=== PATIENT | female | born 1950 | race Caucasian/White ===

== ENCOUNTER 2023-04-15 22:26 | Emergency (ER) | payer SELFPAY ==
[2023-04-15] VITALS (11 sets, daily range): BP systolic 164–173; BP diastolic 87–106; PULSE 94–115; RESP 12–20; TEMP 37.1; O2SAT 88–97; BMI 24.8
--- NOTE | 2023-04-15 22:40 | ED_ITS ---
HPI - General Adult General Chief complaint: Altered Mental Status Stated complaint: ALTERED MENTAL STATUS Time Seen by Provider: 04/15/23 22:40 Source: patient Mode of arrival: ambulance Limitations: no limitations History of Present Illness HPI narrative: Patient presents to emergency department via EMS for complaint of mental status changes. Patient lives at home with . states that today she sta rted swelling herself and urinating herself and then would just sit down on the side of the bed confused and not knowing what she was doing. He denies any trauma. He states in the last year the family seems to think that she has dementia but she has not been diagnosed with it. She has a history of hypertension, and the right breast lumpectomy >10 years ago. Patient is awake Aware She Is in the Hospital Denies Any Pain. She Denies Any Fall or Trauma. Patient Denies Any Blurred Vision. She Denies Any Speech Difficulties. She Denies Any Difficulty Walking. She Denies Any Focal Weakness. She Denies Any Fever, Chills, or Cough. She Denies Any Chest Pain, Shortness of Breath. Denies Any Nausea, Vomiting, or Diarrhea. states she takes medicine for hypertension amlodipine she has some available to her by he cannot attest to her taking them every day. Related Data Home Medications Medication Instructions Recorded Confirmed amlodipine 5 mg tablet 5 mg PO BID 04/15/23 04/15/23 furosemide 20 mg tablet 20 mg PO DAILY 04/15/23 04/15/23 levothyroxine 88 mcg tablet 88 mcg PO DAILY 04/15/23 04/15/23 Allergies Allergy/AdvReac Type Severity Reaction Status Date / Time No Known Drug Allergies Allergy Verified 04/15/23 23:22 Review of Systems ROS Status of ROS 10 or more systems reviewed and unremarkable except as noted in history and below [facility] Social History Smoking status: Current every day smoker Exam Narrative Exam Narrative: Nurses notes and vital signs reviewed and patient is not hypoxic. General: Nontoxic, elderly, frail, and in no apparent distress. Skin: Warm, dry, no pallor noted. No Rash Head: Normocephalic, atraumatic. Neck: Supple, non-tender. Eye: Pupils are equal, round and EOMI. No scleral icterus. Ears, Nose, Mouth, and Throat: TM clear, no posterior oropharynx erythema or nasal mucosal hypertrophy, uvula is mid-line Oral mucosa is dry Cardiovascular: Regular Rate and Rhythm without murmur, gallop or rub. Respiratory: No accessory muscle use or respiratory distress. Lungs are clear to auscultation, no wheezing, rales or rhonchi Chest Wall: no tenderness Back: No midline thoracic or lumbar vertebral tenderness. No CVA tenderness Musculoskeletal: normal ROM, no calf or popliteal tenderness, no lower extremity edema/swelling GI: Abdomen is soft, non-distended. Normal bowel sounds. No tenderness to palpation. No rebound, guarding, or rigidity noted. Neurological: A&O x2. No cranial nerve dysfunction observed. Moves all extremities. Psychiatric: Cooperative and interactive. Constitutional Vital Signs, click to edit/add: Last Vital Signs Temp 98.8 F 04/15/23 22:30 Pulse 95 H 04/16/23 00:50 Resp 17 04/16/23 00:50 BP 158/90 H 04/16/23 00:55 Pulse Ox 96 04/16/23 00:50 O2 Del Method Room Air 04/15/23 22:30 Course Vital Signs Vital signs: Vital Signs Blood Pressure 173/106 H 04/15/23 22:29 Temperature 98.8 F 04/15/23 22:30 Pulse Rate 95 H 04/16/23 00:50 Respiratory Rate 17 04/16/23 00:50 Blood Pressure 158/90 H 04/16/23 00:55 Pulse Oximetry 96 04/16/23 00:50 Oxygen Delivery Method Room Air 04/15/23 22:30 Medical Decision Making MDM Narrative Medical decision making narrative: Patient had an IV established. Patient was given normal saline. The patient was found to have a urinary tract infection she was started on Rocephin. CT scan of the brain shows left frontal intraparenchymal hemorrhage with some mass effect but no midline shift. Patient has not had any trauma. She does not take any blood thinners. His findings were discussed with the patient's spouse for advice the patient is a full code and would like the patient to be transferred to [facility]. The patient was discussed with Dr. Grossman who has accepted the patient in transfer.The patient states blood pressure was monitored. She remained around 160/90. Medical Records Medical records reviewed: Yes I reviewed the patient's medical records Lab Data Lab results reviewed: Yes I reviewed the patient's lab results Labs: Lab Results 04/15/23 04/15/23 Range/Units 21:40 23:18 WBC 14.2 H (4.0-11.0) 10^3/uL RBC 4.14 L (4.20-5.40) 10^6/uL Hgb 12.6 (12.0-16.0) g/dL Hct 38.9 (36.0-48.0) % MCV 94.0 (81.0-99.0) fL MCH 30.4 (26.7-34.0) pg MCHC 32.4 (29.9-35.2) g/dL RDW 14.3 (11.0-15.0) % Plt Count 330 (150-450) 10^3/uL MPV 9.7 (9.5-13.5) fL Neut % (Auto) 81.8 H (43.0-75.0) % Lymph % (Auto) 5.6 L (20.5-60.0) % [place] % (Auto) 11.2 (1.7-12.0) % Eos % (Auto) 0.5 L (0.9-7.0) % Baso % (Auto) 0.3 (0.2-2.0) % Neut # (Auto) 11.6 H (1.4-6.5) 10^3/uL Lymph # (Auto) 0.8 L (1.2-3.8) 10^3/uL [place] # (Auto) 1.6 H (0.3-0.8) 10^3/uL Eos # (Auto) 0.1 (0.0-0.7) 10^3/uL Baso # (Auto) 0.0 (0.0-0.1) 10^3/uL Abs Immat Gran (auto) 0.08 H (0.00-0.03) 10^3/uL Imm/Tot Granulo (auto) 0.6 H (0.0-0.5) % PT 10.5 (9.0-11.6) sec INR 0.99 APTT 31.6 (22.3-36.2) sec Sodium 142 (136-145) mmol/L Potassium 3.9 (3.5-5.1) mmol/L Chloride 107 (98-107) mmol/L Carbon Dioxide 23.9 (21.0-32.0) mmol/L Anion Gap 15.0 BUN 25.0 H (7.0-18.0) mg/dL Creatinine 2.22 H (0.55-1.02) mg/dL Est GFR ( Amer) 26 L (>=60) Est GFR (Non-Af Amer) 22 L (>=60) BUN/Creatinine Ratio 11.3 Glucose 113 H (74-106) mg/dL Lactate 1.0 (0.4-2.0) mmol/L Calcium 8.8 (8.5-10.1) mg/dL Total Bilirubin 0.8 (0.2-1.0) mg/dL AST 28 (15-37) U/L ALT 7 L (14-59) U/L Alkaline Phosphatase 94 (46-116) U/L Troponin I High Sens 15.3 (4.0-51.3) pg/mL Total Protein 7.9 (6.4-8.2) g/dL Albumin 3.4 (3.4-5.0) g/dL Globulin 4.5 g/dL Albumin/Globulin Ratio 0.8 Urine Color Lt. yellow (YELLOW) Urine Clarity Clear (CLEAR) Urine pH 5.5 (5.0-9.0) Ur Specific [place] 1.025 (1.005-1.025) Urine Protein >=300 A (NEG/TRACE) mg/dL Urine Glucose (UA) Negative (NEGATIVE) mg/dL Urine Ketones Trace A (NEGATIVE) mg/dL Urine Occult Blood Moderate A (NEGATIVE) Urine Nitrite Positive A (NEGATIVE) Urine Bilirubin Negative (NEGATIVE) Urine Urobilinogen 0.2 (0.2-1.0) EU/dL Ur Leukocyte Esterase Trace A (NEGATIVE) Urine RBC 0-2 (0-2) #/HPF Urine WBC 10-20 A (NONE SEEN) #/HPF Ur Squamous Epith Cells Few A (NONE/RARE) #/LPF Urine Crystals None seen (None Seen) #/HPF Urine Bacteria Large A (NONE SEEN) #/HPF Urine Casts None seen (NONE SEEN) #/LPF Urine Mucus None seen (NONE SEEN) Ur Culture Indicated? Yes ECG Data Attestation: I personally reviewed and interpreted this ECG as follows: Interpretation: Sinus rhythm at 94 bpm. No acute ischemic changes. Critical Care Time Critical Care Time Critical Care Time: Yes Total Critical Care Time: 35 Attestation: Critical Care Time: 35 minutes, critical care time is separate from any procedures that are performed. The following was considered in the determination of critical care but not limited to the level medical decision-making, intensive cardiac and/or respiratory monitor, frequent vital sign monitoring, evaluation of laboratory studies, evaluation of a radiographic studies, oxygen monitoring and constant monitoring. Discharge Plan Discharge Chief Complaint: Altered Mental Status Clinical Impression: Acute UTI, Altered mental status, Acute spont intraparenchymal hemorrhage assoc w/ hypertension Patient Disposition: [facility] Time of Disposition Decision: 00:24 Discharge Location: [facility] Condition: Fair Mode of Transportation: EMS
--- NOTE | 2023-04-15 23:05 | XR_ITS ---
[address] [address] Patient Name: BHUMIKA WHEATLEY MRN: [id number] date: 1950 Sex: F Assigned Patient Location: ER Current Patient Location: ER Accession/Order Number: [id number] Exam Date: 04/15/2023 23:34 Report Date: 04/15/2023 23:46 At the request of: BOBBY ROBLERO Procedure: XR chest 1V EXAMINATION: XR chest 1V, , 04/15/2023 11:34 PM EDT INDICATION: ms faust HISTORY: Ordering Provider Reason for Exam: ms nguyen Technologist Note: Additional: COMPARISON: None. TECHNIQUE: Chest x-ray: One view. FINDINGS: No pneumothorax, pleural effusion or focal airspace consolidation. Heart is normal in size. Bony thorax is unremarkable. XR/XR chest 1V IMPRESSION: No acute cardiopulmonary process. Electronically authenticated by: ARVIN HEAD Date: 04/15/2023 23:46
--- NOTE | 2023-04-15 23:05 | CT_ITS ---
The [address] [address] Patient Name: BHUMIKA WHEATLEY MRN: [id number] date: 1950 Sex: F Assigned Patient Location: ER Current Patient Location: ER Accession/Order Number: [id number] Exam Date: 04/15/2023 23:34 Report Date: 04/16/2023 00:19 At the request of: BOBBY PADILLA Procedure: CT head/brain wo con EXAM: CT head/brain wo con HISTORY: MS changes. COMPARISON: None. TECHNIQUE: Noncontrast images of the brain obtained. FINDINGS: Paranasal sinuses and mastoid air cells are clear. Calvarium is intact. There is an intra-axial hemorrhage in the left frontal cortex measuring 3.9 x 2.6 x 3.3 cm with a minimal amount of adjacent subarachnoid blood products in the left frontal lobe. A small volume of contralateral right parafalcine subdural hemorrhage is seen measuring 4 mm on image 31. There is effacement of the frontal horn of the left lateral ventricle but no additional significant mass effect or midline shift. Brain is atrophic. There is no ventricular hemorrhage or hydrocephalus. Dense carotid calcifications. CT/CT head/brain wo con IMPRESSION: 1. Dominant acute intra-axial hemorrhage in the left frontal cortex with minimal adjacent subarachnoid blood products. No clinically significant mass effect. 2. Small contralateral right parafalcine subdural hematoma. 3. Brain atrophy. Severe atherosclerosis. Critical results were NOTIFIED by TELEPHONE BY Dr. Geo Molina MD to Dr Padilla At 04/15/2023 11:48 PM EDT. Electronically authenticated by: GEO MOLINA Date: 04/16/2023 00:19
[2023-04-15 23:11] LABS: Bilirubin Urine NEGATIVE (NEGATIVE); Blood Urine MODERATE (NEGATIVE); Clarity Urine CLEAR (CLEAR); Color Urine LT. YELLOW (YELLOW); Glucose Urine UA NEGATIVE (NEGATIVE); Ketones Urine TRACE mg/dL (NEGATIVE); Leukocyte Esterase Urine TRACE (NEGATIVE); Nitrite Urine POSITIVE (NEGATIVE); Protein Urine >=300 mg/dL (NEG/TRACE); Specific Gravity Urine 1.025 (1.005-1.025); Urobilinogen Urine 0.2 EU/dL (0.2-1.0); pH Urine 5.5 (5.0-9.0)
[2023-04-15 23:12] LABS: Urine Microscopic Indicated YES
--- NOTE | 2023-04-15 23:14 | PC.NURSE ---
pt brought in by EMS because pt has had altered mental status for the last year and family was concerned for dementia but pt hasn't been dx with anything yet. ems called tonight because pt seemed more confused and had bladder incontinence. when asking pt if she remembers what happened pt can't recall why she is at the hospital. straight cath completed by irasema corona on arrival and pt tolerated well.
[2023-04-15 23:20] LABS: Bacteria Urine LARGE #/HPF (NONE SEEN); Cast Seen? NONE SEEN #/LPF (NONE SEEN); Crystals Seen? None Seen #/HPF (None Seen); Mucus Urine NONE SEEN (NONE SEEN); RBC Urine 0-2 #/HPF (0-2); Squamous Epithelial Cell Urine FEW #/LPF (NONE/RARE); Urine Culture Indicated YES
--- NOTE | 2023-04-15 23:25 | ECG_ITS ---
[facility] Test Date: 2023-04-15 Pat Name: BHUMIKA WHEATLEY Department: Room: - Gender: Female Tonger: : 1950 Requested By: VADIM MELO Order Number: [id number] Reading MD: CASEY STERN Measurements Intervals [place] Rate: 94 P: 64 OK: 126 QRS: -55 QRSD: 78 T: 26 QT: 348 QTc: 399 Interpretive Statements 1100 Sinus rhythm 7300 Indeterminate axis 9120 atypical ECG No previous ECG available for comparison Electronically Signed On 04-16-2023 11:09:52 EDT by CASEY STERN
[2023-04-15 23:35] LABS: Basophils Percent Auto 0.3 % (0.2-2.0); Eosinophils Absolute Auto 0.1 10^3/uL (0.0-0.7); Eosinophils Percent Auto 0.5 % (0.9-7.0); Hematocrit 38.9 % (36.0-48.0); Hemoglobin 12.6 g/dL (12.0-16.0); Immature Granulocytes Abs Auto 0.08 10^3/uL (0.00-0.03); Immature Granulocytes Pct Auto 0.6 % (0.0-0.5); Lymphocytes Absolute Auto 0.8 10^3/uL (1.2-3.8); Lymphocytes Percent Auto 5.6 % (20.5-60.0); Mean Corpuscular HGB Conc 32.4 g/dL (29.9-35.2); Mean Corpuscular Hemoglobin 30.4 pg (26.7-34.0); Mean Platelet Volume 9.7 fL (9.5-13.5); Monocytes Absolute Auto 1.6 10^3/uL (0.3-0.8); Monocytes Percent Auto 11.2 % (1.7-12.0); Neutrophils Absolute Auto 11.6 10^3/uL (1.4-6.5); Neutrophils Percent Auto 81.8 % (43.0-75.0); Platelet Count 330 10^3/uL (150-450); Red Blood Count 4.14 10^6/uL (4.20-5.40); Red Cell Distribution Width 14.3 % (11.0-15.0); White Blood Count 14.2 10^3/uL (4.0-11.0)
[2023-04-15 23:51] LABS: Alanine Aminotransferase 7 U/L (14-59); Albumin Globulin Ratio 0.8; Albumin Level 3.4 g/dL (3.4-5.0); Alkaline Phosphatase 94 U/L (46-116); Aspartate Amino Transferase 28 U/L (15-37); BUN Creatinine Ratio 11.3; Bilirubin Total 0.8 mg/dL (0.2-1.0); Calcium 8.8 mg/dL (8.5-10.1); Carbon Dioxide 23.9 mmol/L (21.0-32.0); Chloride 107 mmol/L (98-107); Estimated GFR (African America 26 (>=60); Estimated GFR (Non-African Ame 22 (>=60); Globulin 4.5 g/dL; Glucose 113 mg/dL (74-106); Potassium 3.9 mmol/L (3.5-5.1); Sodium 142 mmol/L (136-145); Total Protein 7.9 g/dL (6.4-8.2)
[2023-04-15 23:56] LABS: Troponin I High Sensitivity 15.3 pg/mL (4.0-51.3)
[2023-04-16] VITALS (12 sets, daily range): BP systolic 158–169; BP diastolic 90–116; PULSE 89–106; RESP 14–22; O2SAT 94–96
[2023-04-16] MEDS: 0.9 % SODIUM CHLORIDE 1,000 ML 1000 ML IV (00:01)
[2023-04-16] MEDS: CEFTRIAXONE 1,000 MG in 0.9 % SODIUM CHLORIDE 50 ML 50 MG IV (00:01)
[2023-04-16 00:11] LABS: INR 0.99; Partial Thromboplastin Time 31.6 sec (22.3-36.2); Prothrombin Time 10.5 sec (9.0-11.6)
== END 2023-04-16 01:30 | disposition short-term general hospital (02) ==
PROVIDERS: Emergency Provider Emergency Medicine; PCP Family Medicine
DX: I61.8 Other nontraumatic intracerebral hemorrhage (principal); N39.0 Urinary tract infection, site not specified; R41.82 Altered mental status, unspecified; I10 Essential (primary) hypertension; Z79.899 Other long term (current) drug therapy; Z79.890 Hormone replacement therapy; F17.210 Nicotine dependence, cigarettes, uncomplicated
CPT/HCPCS: 36415; 70450; 71045; 80053; 81001; 83605; 84484; 85025; 85610; 85730; 87040; 87086; 87150; 87186; 93005; 96361; 96365; 99285

== ENCOUNTER 2023-05-17 12:20 | Outpatient (OUT) | payer MEDICARE, SELFPAY ==
[2023-05-17 15:32] LABS: Albumin Level 3.1 g/dL (3.4-5.0); Anion Gap 16.2; BUN Creatinine Ratio 17.2; Calcium 9.3 mg/dL (8.5-10.1); Carbon Dioxide 24.9 mmol/L (21.0-32.0); Chloride 107 mmol/L (98-107); Estimated GFR (African America 32 (>=60); Estimated GFR (Non-African Ame 27 (>=60); Glucose 83 mg/dL (74-106); Phosphorus 3.1 mg/dL (2.6-4.7); Potassium 4.1 mmol/L (3.5-5.1); Sodium 144 mmol/L (136-145)
== END 2023-05-17 12:21 | disposition home or self-care (01) ==
LOC: LAB 12:20
PROVIDERS: PCP Family Medicine; Visit Provider Internal Medicine
DX: N18.9 Chronic kidney disease, unspecified (principal)
CPT/HCPCS: 36415; 80069

== ENCOUNTER 2023-08-24 01:39 | Outpatient (REF) | payer MEDICARE, SELFPAY ==
[2023-08-24 08:38] LABS: Bilirubin Urine NEGATIVE (NEGATIVE); Blood Urine TRACE-I (NEGATIVE); Clarity Urine CLEAR (CLEAR); Color Urine LT. YELLOW (YELLOW); Glucose Urine UA NEGATIVE (NEGATIVE); Ketones Urine NEGATIVE (NEGATIVE); Leukocyte Esterase Urine NEGATIVE (NEGATIVE); Nitrite Urine NEGATIVE (NEGATIVE); Protein Urine TRACE mg/dL (NEG/TRACE); Specific Gravity Urine 1.015 (1.005-1.025)
[2023-08-24 08:49] LABS: Hemoglobin 10.8 g/dL (12.0-16.0); Mean Corpuscular HGB Conc 31.8 g/dL (29.9-35.2); Mean Corpuscular Hemoglobin 32.2 pg (26.7-34.0); Mean Corpuscular Volume 101.5 fL (81.0-99.0); Platelet Count 256 10^3/uL (150-450); Red Blood Count 3.35 10^6/uL (4.20-5.40); White Blood Count 18.3 10^3/uL (4.0-11.0)
[2023-08-24 09:01] LABS: Alanine Aminotransferase 56 U/L (14-59); Albumin Globulin Ratio 0.3; Albumin Level 1.5 g/dL (3.4-5.0); Alkaline Phosphatase 56 U/L (46-116); Anion Gap 12.1; Aspartate Amino Transferase 38 U/L (15-37); Bilirubin Total 0.3 mg/dL (0.2-1.0); Carbon Dioxide 27.2 mmol/L (21.0-32.0); Chloride 102 mmol/L (98-107); Estimated GFR (African America 43 (>=60); Estimated GFR (Non-African Ame 36 (>=60); Globulin 5.2 g/dL; Glucose 82 mg/dL (74-106); Potassium 4.3 mmol/L (3.5-5.1); Sodium 137 mmol/L (136-145); Total Protein 6.7 g/dL (6.4-8.2)
[2023-08-24 09:06] LABS: Urine Microscopic Indicated YES
[2023-08-24 09:17] LABS: Bacteria Urine NONE SEEN #/HPF (NONE SEEN); Mucus Urine TRACE (NONE SEEN); RBC Urine 0-2 #/HPF (0-2); WBC Urine NONE SEEN #/HPF (NONE SEEN)
[2023-08-24 09:18] LABS: Squamous Epithelial Cell Urine FEW #/LPF (NONE/RARE); Urine Culture Indicated NO
[2023-08-24 09:30] LABS: Segmented Neut Absolute Manual 13.35 10^3/uL (1.4-6.5)
[2023-08-24 09:31] LABS: Band Neutrophils Absolute 0.5 10^3/uL (0.0-0.3); Eosinophils Absolute Manual 0.18 10^3/uL (0.00-0.70); Lymphocytes Absolute Manual 1.09 10^3/uL (1.20-3.80); Monocytes Absolute Manual 2.56 10^3/uL (0.30-0.80)
[2023-08-24 09:32] LABS: Atypical Lymphocytes Abs Man 0.54
[2023-08-24 09:33] LABS: Anisocytosis 1+; Poikilocytosis 1+; Tear Drop Cells 1+
== END 2023-08-24 01:40 | disposition home or self-care (01) ==
LOC: LAB 01:39
PROVIDERS: PCP Family Medicine; Visit Provider Nurse Practitioner Family
DX: D72.829 Elevated white blood cell count, unspecified (principal); R41.0 Disorientation, unspecified
CPT/HCPCS: 36415; 80053; 81001; 85007; 85027

== ENCOUNTER 2023-08-26 03:30 | Outpatient (REF) | payer MEDICARE, SELFPAY ==
--- OUTSIDE RECORDS SUMMARY | 2023-08-26 03:32 | XMS_ITS | CCD ---
Author Name Unknown Address [address] [place] [id number] Organization [facility] Care Team Providers Care Residential Manager Name Role Phone Unavailable Primary Care Provider Unavailabl e Allergies Allergy Classification Reported Allergen(s) Allergy Type Date of Onset Reaction(s) Facility (1 source) [facility] Drug Allergy 05-11-2023 [facility] Medications Current Medications Medication Drug Class(es) Dates Sig (Normalized) Sig (Original) amantadine hydrochloride 100 mg oral capsule (1 source) Influenza A M2 Protein Inhibitor Start: 08-08-2023 take 1 capsule by mouth every other day amantadine (SYMMETREL) 100 mg capsule Take 1 capsule (100 mg total) by mouth every other day. 0 08/08/2023 Active amLODIPine 10 mg oral tablet (1 source) Dihydropyridine Calcium Channel Adilson Start: 04-20-2023 End: 11-08-2023 take 1 tablet by mouth in the morning amLODIPine (NORVASC) 10 mg tablet Take 1 tablet (10 mg total) by mouth in the morning. 0 04/20/2023 11/08/2023 Active carvedilol 6.25 mg oral tablet (1 source) alpha-Adrenergic Adilson, beta-Adrenergic Adilson Start: 04-20-2023 End: 11-08-2023 take 1 tablet by mouth in the morning, then take 1 tablet by mouth at mealtime carvediloL (COREG) 6.25 mg tablet Take 1 tablet (6.25 mg total) by mouth in the morning and 1 tablet (6.25 mg total) in the evening. Take with meals. 0 04/20/2023 11/08/2023 Active citalopram 10 mg oral tablet (1 source) Serotonin Reuptake Inhibitor Start: 04-21-2023 End: 11-08-2023 take 1 tablet by mouth in the morning citalopram (CeleXA) 10 mg tablet Take 1 tablet (10 mg total) by mouth in the morning. 0 04/21/2023 11/08/2023 Active donepezil hydrochloride 10 mg oral tablet (1 source) Start: 05-18-2023 donepeziL (ARICEPT) 10 mg tablet Take 1 tablet (10 mg total) by mouth. 0 05/18/2023 Active levothyroxine sodium 0.088 mg oral tablet (1 source) l-Thyroxine take 1 tablet by mouth in the morning levothyroxine (SYNTHROID, LEVOTHROID) 88 MCG tablet Take 1 tablet (88 mcg total) by mouth in the morning. 0 Active divalproex sodium 500 mg delayed release oral tablet (1 source) Mood Stabilizer, Anti-epileptic Agent Start: 08-07-2023 take 1 tablet by mouth in the morning, then take 1 tablet by mouth at bedtime divalproex (DEPAKOTE) 500 mg EC tablet Take 1 tablet (500 mg total) by mouth in the morning and 1 tablet (500 mg total) before bedtime. 0 08/07/2023 Active Problems Problem Classification Problem Date Documented Da te Episodic/Chronic Acute cerebrovascular disease (1 source) Cerebral infarction; Translations: [Cerebral infarction, unspecified] 08-11-2023 Chronic Epilepsy; convulsions (1 source) Complex partial epileptic seizure; Translations: [Localization-related (focal) (partial) symptomatic epilepsy and epileptic syndromes with complex partial seizures, not intractable, without status epilepticus] 08-11-2023 Chronic Nutritional deficiencies (1 source) Vitamin D deficiency; Translations: [Vitamin D deficiency, unspecified] 08-11-2023 Chronic Other nervous system disorders (1 source) Disorder of brain; Translations: [Encephalopathy, unspecified] 08-11-2023 Chronic Residual codes; unclassified (1 source) Restlessness and agitation; Translations: [Restlessness and agitation] 08-11-2023 Chronic Residual codes; unclassified (1 source) Confusional state; Translations: [Disorientation, unspecified] 08-11-2023 Episodic Thyroid disorders (1 source) Hypothyroidism; Translations: [Hypothyroidism, unspecified] 08-11-2023 Chronic Vital Signs Date Time Vital Sign Value Performing Clinician Kirill cain 08-11-2023 13:58-0500 Body height 160 cm Alexander Munson MD Work Phone: [facility] 08-11-2023 13:58-0500 Body mass index (BMI) [Ratio] 23.03 kg/m2 Alexander Munson MD Work Phone: [facility] 08-11-2023 13:58-0500 Body weight 58.97 kg Alexander Munson MD Work Phone: [facility] 08-11-2023 13:58-0500 Diastolic blood pressure 68 mm[Hg] Alexander Munson MD Work Phone: [facility] 08-11-2023 13:58-0500 Systolic blood pressure 106 mm[Hg] Alexander Munson MD Work Phone: [facility] Encounters Encounter Date Encounter Type Care Provider Facility Start: 08-11-2023 End: 08-11-2023 Office outpatient new 45 minutes Alexander Munson MD Work Phone: [facility] - Alexander Munson MD Comment on above: Multiple cerebral in farctions (CMS-HCC) (Primary Dx); Left frontal hemorrhage; Encephalopathy; Agitated; Hypothyroidism, unspecified type; Vitamin D deficiency; Confusion; Seizure disorder, complex partial ([facility]) Plan of Treatment Date Care Activity Detail Author Start: 08-11-2024 Adult BMI Screening Adult BMI Screen ing [facility] Start: 08-11-2024 Tobacco Screening Tobacco Screening [facility] Start: 10-06-2023 End: 10-06-2023 Patient encounter procedure 10/06/2023 1:15 PM EST Office Visit [facility] - MD [address] [place] [address] Alexander Munson MD [address] [place], [place] [id number] [facility] - Alexander Munson MD Start: 04-15-2023 Influenza vaccination Influenza Vacc ine [facility] Start: 2015 Fall Risk [facility]ening [facility] Start: 2000 Administration of varicella zoster vaccine Zoster (Shingles) Vaccine (1 of 2) [facility] Start: 1969 DTaP,Tdap and Td Vaccines (1 - Tdap) DTaP,Tdap and Td Vaccines (1 - Tdap) [facility] Start: 1962 Depression Screening [facility]ing [facility] Start: 1950 Medicare Annual Well ness Visit Medicare Annual Wellness Visit [facility] End: 08-11-2024 Bacteria identified in Urine by Culture Urine Culture Microbiology Routine Left frontal hemorrhage Multiple cerebral infarctions (CMS-HCC) Encephalopathy Agitated Hypothyroidism, unspecified type Vitamin D deficiency 1 Occurrences starting 08/11/2023 until 08/11/2024 [facility] Comment on above: 1 Occurrences starti ng 08/11/2023 until 08/11/2024 End: 08-11-2024 Comprehensive metabolic 2000 panel - Serum or Plasma Comprehensive metabolic panel Lab Routine Left frontal hemorrhage Multiple cerebral infarctions (CMS-HCC) Encephalopathy Agitated Hypothyroidism, unspecified type Vitamin D deficiency 1 Occurrences starting 08/11/2023 until 08/11/2024 [employer] Comment on above: 1 Occurrences starti ng 08/11/2023 until 08/11/2024 End: 08-11-2024 Cyanocobalamin vitamin b-12 Vitamin B12 Lab Routine Left frontal hemorrhage Multiple cerebral infarctions (CMS-HCC) Encephalopathy Agitated Hypothyroidism, unspecified type Vitamin D deficiency 1 Occurrences starting 08/11/2023 until 08/11/2024 [employer] Comment on above: 1 Occurrences starti ng 08/11/2023 until 08/11/2024 End: 08-11-2024 Folate Folate Lab Routine Left frontal hemorrhage Multiple cerebral infarctions (CMS-HCC) Encephalopathy Agitated Hypothyroidism, unspecified type Vitamin D deficiency 1 Occurrences starting 08/11/2023 until 08/11/2024 [facility] Work Phone: Comment on above: 1 Occurrences starti ng 08/11/2023 until 08/11/2024 End: 08-11-2024 Thyroid profile includes TSH FT4 Thyroid profile includes TSH FT4 Lab Routine Left frontal hemorrhage Multiple cerebral infarctions (CMS-HCC) Encephalopathy Agitated Hypothyroidism, unspecified type Vitamin D deficiency 1 Occurrences starting 08/11/2023 until 08/11/2024 [facility] Comment on above: 1 Occurrences starti ng 08/11/2023 until 08/11/2024 End: 08-11-2024 Urinalysis Urinalysis Lab Routine Left frontal hemorrhage Multiple cerebral infarctions (CMS-HCC) Encephalopathy Agitated Hypothyroidism, unspecified type Vitamin D deficiency 1 Occurrences starting 08/11/2023 until 08/11/2024 [facility] Comment on above: 1 Occurrences starti ng 08/11/2023 until 08/11/2024 End: 08-11-2024 Vitamin D 25 hydroxy Vitamin D 25 hydroxy Lab Routine Left frontal hemorrhage Multiple cerebral infarctions (CMS-HCC) Encephalopathy Agitated Hypothyroidism, unspecified type Vitamin D deficiency 1 Occurrences starting 08/11/2023 until 08/11/2024 [facility] Comment on above: 1 Occurrences starti ng 08/11/2023 until 08/11/2024 Immunizations Immunization Date Immunization Notes Care Provider Fa cili 06-30-2021 influenza virus vaccine, unspecified formulation Alexander Munson MD Work Phone: [facility] [employer] [facility] Payers Date Payer Category Payer Medicare A[employer]NA MEDICARE A ETNA MEDICARE PLAN (PPO) [id number] 2021-Present [phone] [address] [place] [address] [id number] Social History Date Type Detail Facility Start: 08-11-2023 Tobacco smoking stat us RIIS [facility] End: 03-15-2023 History of tobacco use [facility] End: 03-15-2023 History of tobacco use Cigarette Smoker [facility] Start: 08-11-2023 Tobacco use and exposure Smoke less tobacco non-user [facility] Start: 08-11-2023 Alcohol intake Lifetime non-d dian (finding) [facility] Start: 01-24-2019 End: 08-11-2023 History of Social function [facility] Start: 01-24-2019 End: 08-11-2023 Tobacco use panel [facility] Housing Instability Unknown [facility] Start: 1950 Sex Assigned At Not on file P [facility] History of Present illness Narrative 08-11-2023 Alexander Munson MD - 08/11/2023 1:45 PM EST Note Date & Type Note Facility 08-11-2023 History of Present illness Narrative Images from the original note were not included. Neurology Progress 08/11/2023 HOLLIE Hale Ref Provid Reason for Visit: Chief Complaint Patient presents with Altered Mental Status Patient is here for consult and treatment. Patent is being referred by Dony for confusion. She is accompanied by her and sister in law. Patient presents with a walker with front wheels. Patient was seen at [facility] 08/03/2023-08/07/2023. Patient went to the hospital because she passed out on her kitchen floor. She remembers waking up. Friend told her she was only out for a couple seconds. States she was a little dizzy before falling. Sister in law mentions at the hospital they discussed possible seizures. Patient has confusion. Does not know how to shower or use the restroom by herself. Patient is not forgetting people or places. She gets confusion with daily tasks. She is in speech therapy. / Bharti Quevedo MA MMSE:16/30 HPI: Cynthia Curtis is a 73 y.o. female and [id number]. This lady was recently discharged from [facility]. Progressive agitation combativeness and aggression at home. Confusion. Unable to carry out activities of daily life. Now has home care. Will be starting speech physical and occupational therapies. Multiple investigations done at [facility] are reviewed. Initial presentation was after a bout of loss of consciousness without cranial injury. Started on Depakote. EEG with slow background. 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 Handwriting has worsened. Suffered a stroke a few years ago. Resulted in left hemispheric infarction possible cranial injury at that time too. Family history unremarkable for neurological disorders. History of lupus thyroid dysfunction and breast cancer. Denies but was a heavy smoker till recently. Denies alcohol usage. 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 Multiple medications include amantadine Aricept now on Depakote. Family does not feel addition of Depakote has helped her agitation. Review of Systems: General: Unremarkable Psychological: Unremarkable Ophthalmic: Unremarkable ENT: Unremarkable Allergy and Immunolog : Unremarkable Hematological and Lymphatic : Unremarkable Endocrine : Unremarkable Respiratory : Unremarkable Cardiovascular : Unremarkable Gastrointestinal : Unremarkable Genito-Urinary : Unremarkable Musculoskeletal : Unremarkable Neurological : Unremarkable Dermatological : Unremarkable Past Medical History: Past Medical History: Diagnosis Date Cancer ([facility]) Stroke ([facility]) Social History: Social History Socioeconomic History Marital status: Spouse name: Not on file Number of children: Not on file Years of education: Not on file Highest education level: Not on file Occupational History Not on file Tobacco Use Smoking status: Former Types: Cigarettes Quit date: 03/2023 Years since quittin.4 Smokeless tobacco: Never Vaping Use Vaping Use: Never used Substance and Sexual Activity Alcohol use: Never Drug use: Never Sexual activity: Defer Other Topics Concern Not on file Social History Narrative Not on file Social Determinants of Health Financial Resource Strain: Not on file Food Insecurity: No Food Insecurity (08/11/2023) Hunger Screening Food Insecurity - Worry: Never True Food Insecurity - Inability: Never True Transportation Needs: Not on file Physical Activity: Not on file Stress: Not on file Social Connections: Not on file Interpersonal Safety: Not on file Family History: History reviewed. No pertinent family history. Modifying Factors: Allergies: Allergies Allergen Reactions Diazepam Other reaction(s): Memory loss Other Reaction(s): memory loss Other Reaction(s): memory loss Current Medications: Current Outpatient Medications Medication Sig Dispense Refill amantadine (SYMMETREL) 100 mg capsule Take 1 capsule (100 mg total) by mouth every other day. amLODIPine (NORVASC) 10 mg tablet Take 1 tablet (10 mg total) by mouth in the morning. carvediloL (COREG) 6.25 mg tablet Take 1 tablet (6.25 mg total) by mouth in the morning and 1 tablet (6.25 mg total) in the evening. Take with meals. citalopram (CeleXA) 10 mg tablet Take 1 tablet (10 mg total) by mouth in the morning. divalproex (DEPAKOTE) 500 mg EC tablet Take 1 tablet (500 mg total) by mouth in the morning and 1 tablet (500 mg total) before bedtime. donepeziL (ARICEPT) 10 mg tablet Take 1 tablet (10 mg total) by mouth. levothyroxine (SYNTHROID, LEVOTHROID) 88 MCG tablet Take 1 tablet (88 mcg total) by mouth in the morning. No current facility-administered medications for this visit. Physical Examination: Vitals: 08/11/23 1358 BP: 106/68 BP Site: Left Arm BP Postition: Sitting Weight: 59 kg (130 lb) Height: 160 cm (5' 3 ) General Examination: Cooperative middle-aged lady appears greater than stated age. GENERAL APPEARANCE: Grooming, alert, well developed, well nourished, in no acute distress, appropriate for age. CRANIUM: Normocephalic, atraumatic. ENT: Oral mucosa moist, no pharyngeal erythema or exudate, normal tympanic membrane. EYES: Conjunctiva normal, normal funduscopic exam. NECK: Neck is supple, trachea midline, no tenderness, no jugular venous distention. CHEST: Symmetrical chest wall expansion. CARDIO: Regular rate and rhythm, heart sounds normal. PERIPHERAL VASCULAR: Normal CAROTID VASCULAR: Normal BACK: Nontender, full range of motion, normal alignment. MUSCULOSKELETAL: Full range of motion, normal strength, no tenderness or swelling. SKIN: Clear EXTREMITIES: Full range Neurological Examination: CORTICAL FUNCTIONS: Speech, language, and cognition are normal as well as level of alertness and attention. No aphasia or dysarthria. CRANIAL NERVES: II - XII intact bilaterally.PERRLA, EOMI without nystagmus discs are flat. Facial sensation and strength are normal, soft palate and tongue are midline, and sternocleidomastoid strength is normal bilaterally. Hearing is normal bilaterally. Minimal flattening right nasolabial fold. MOTOR STRENGTH: Normal bulk, tone, and strength. Proximal lower extremities 4/5 right upper lower extremity 5-compared to left. SENSORY: Intact for light touch and joint and vibration sense. REFLEXES: Normal and symmetrical. Absent frontal release signs. PLANTARS: Toes are downgoing to Babinski testing. COORDINATION: Normal to [id number]. GAIT AND STATION: Got up to stand by herself, Romberg's test negative. Wide-based stance ataxic gait uses a walker. Mini Mental Score: Total Score: 16 Imaging Results: mpressions 08/05/2023 6:20 PM EST 1. No acute intracranial abnormality. 2. 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 No intracranial mass is detected. 3. Moderate cerebral atrophy. 4. Moderate to severe chronic microvascular disease. 5. Numerous foci of susceptibility artifact within both cerebral hemispheres likely represents changes related to hypertensive microangiopathy versus amyloidosis. Small cavernomas are a less likely consideration. Results - MRI BRAIN W WO CONTRAST (08/05/2023 3:09 PM EST) Narrative 08/05/2023 6:20 PM EST EXAMINATION: MRI OF THE BRAIN WITHOUT AND WITH CONTRAST, 08/05/2023 2:39 pm TECHNIQUE: Multiplanar multisequence MRI of the head/brain was performed without and with the administration of intravenous contrast. COMPARISON: 04/16/2023 HISTORY: ORDERING SYSTEM PROVIDED HISTORY: IPH / CAA ? TECHNOLOGIST PROVIDED HISTORY: IPH / CAA ? What is the sedation requirement? None Reason for Exam: IPH / CAA ? FINDINGS: INTRACRANIAL STRUCTURES/VENTRICLES: There is no acute infarct. No mass effect or midline shift. No evidence of an acute intracranial hemorrhage. The ventricles and sulci are normal in size and configuration. The sellar/suprasellar regions appear unremarkable. The normal signal voids within the major intracranial vessels appear maintained. No abnormal focus of enhancement is seen within the brain. Moderate cerebral atrophy is identified. Moderate to severe chronic microvascular disease is identified within the periventricular white matter of both cerebral hemispheres. Old left frontal lobe hematoma measures 1.9 cm previously measuring 4.5 cm. Surrounding gliosis is noted Numerous foci of susceptibility artifact within both cerebral hemispheres likely represents changes related to hypertensive microangiopathy versus amyloidosis. Small cavernomas are less likely. ORBITS: The visualized portion of the orbits demonstrate no acute abnormality. SINUSES: The visualized paranasal sinuses and mastoid air cells demonstrate no acute abnormality. BONES/SOFT TISSUES: The bone marrow signal intensity appears normal. The soft tissues demonstrate no acute abnormality. Results - MRI BRAIN W WO CONTRAST (08/05/2023 3:09 PM EST) Procedure Note Nathanael Farrar MD - 08/05/2023 EXAMINATION: MRI OF THE BRAIN WITHOUT AND WITH CONTRAST, 08/05/2023 2:39 pm TECHNIQUE: Multiplanar multisequence MRI of the head/brain was performed without and with the administration of intravenous contrast. COMPARISON: 04/16/2023 HISTORY: ORDERING SYSTEM PROVIDED HISTORY: IPH / CAA ? TECHNOLOGIST PROVIDED HISTORY: IPH / CAA ? What is the sedation requirement? None Reason for Exam: IPH / CAA ? FINDINGS: INTRACRANIAL STRUCTURES/VENTRICLES: There is no acute infarct. No mass effect or midline shift. No evidence of an acute intracranial hemorrhage. The ventricles and sulci are normal in size and configuration. The sellar/suprasellar regions appear unremarkable. The normal signal voids within the major intracranial vessels appear maintained. No abnormal focus of enhancement is seen within the brain. Moderate cerebral atrophy is identified. Moderate to severe chronic microvascular disease is identified within the periventricular white matter of both cerebral hemispheres. Old left frontal lobe hematoma measures 1.9 cm previously measuring 4.5 cm. Surrounding gliosis is noted Numerous foci of susceptibility artifact within both cerebral hemispheres likely represents changes related to hypertensive microangiopathy versus amyloidosis. Small cavernomas are less likely. ORBITS: The visualized portion of the orbits demonstrate no acute abnormality. SINUSES: The visualized paranasal sinuses and mastoid air cells demonstrate no acute abnormality. BONES/SOFT TISSUES: The bone marrow signal intensity appears normal. The soft tissues demonstrate no acute abnormality. IMPRESSION: 1. No acute intracranial abnormality. 2. 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 No intracranial mass is detected. 3. Moderate cerebral atrophy. 4. Moderate to severe chronic microvascular disease. 5. Numerous foci of susceptibility artifact within both cerebral hemispheres likely represents changes related to hypertensive microangiopathy versus amyloidosis. Small cavernomas are a less likely consideration. Results - MRI BRAIN W WO CONTRAST (08/05/2023 3:09 PM EST) Authorizing Provider Anatomical Region Laterality Modality Head -- Computed Tomography Impression No acute intracranial abnormality. Stable left frontal encephalomalacia. Narrative EXAMINATION: CT OF THE HEAD WITHOUT CONTRAST 08/03/2023 3:48 pm IMPRESSION: 1. New encephalomalacia and minimal cortical calcification in the left frontal lobe at the site of prior intraparenchymal hemorrhage. No new or residual hemorrhage identified. 2. Stable chronic white matter microvascular ischemic changes and chronic lacunar infarct in left basal ganglia. Interpreted by: Duglas Evangelista MD Signed by: Duglas Evangelista MD 07/19/23 Labs: Procedures: nterpretation This EEG was normal in wakefulness and sleep. Clinical correlation This EEG was normal. No focal or epileptiform abnormalities were seen. CRYSTAL AMAYA MD Diplomate, [place] [employer] and Neurology Diplomate, [place] [employer] of Clinical Neurophysiology Diplomate, [place] [employer] of Epilepsy Specimen Collected: -- Last Resulted: 08/04/23 14:55 Received From: [facility] Result Received: 08/11/23 13:48 Narrative Mild (<50%) stenosis in the right internal carotid artery. Mild and heterogeneous plaque (proximal and mid) in the right internal carotid artery. Mild (<50%) stenosis in the left internal carotid artery. Heterogeneous plaque (proximal and mid) in the left internal carotid artery. Normal antegrade flow involving the right vertebral artery. Normal antegrade flow involving the left vertebral artery. Assessment: 1. Left frontal hemorrhage - [facility], [place] - Folate; Future - Vitamin B12; Future - Vitamin D 25 hydroxy; Future - Comprehensive metabolic panel; Future - Thyroid profile includes TSH FT4; Future - Urinalysis; Future - Urine Culture; Future 2. Multiple cerebral infarctions (CMS-HCC) - Folate; Future - Vitamin B12; Future - Vitamin D 25 hydroxy; Future - Comprehensive metabolic panel; Future - Thyroid profile includes TSH FT4; Future - Urinalysis; Future - Urine Culture; Future 3. Encephalopathy - Folate; Future - Vitamin B12; Future - Vitamin D 25 hydroxy; Future - Comprehensive metabolic panel; Future - Thyroid profile includes TSH FT4; Future - Urinalysis; Future - Urine Culture; Future 4. Agitated - Folate; Future - Vitamin B12; Future - Vitamin D 25 hydroxy; Future - Comprehensive metabolic panel; Future - Thyroid profile includes TSH FT4; Future - Urinalysis; Future - Urine Culture; Future 5. Hypothyroidism, unspecified type - Folate; Future - Vitamin B12; Future - Vitamin D 25 hydroxy; Future - Comprehensive metabolic panel; Future - Thyroid profile includes TSH FT4; Future - Urinalysis; Future - Urine Culture; Future 6. Vitamin D deficiency - Folate; Future - Vitamin B12; Future - Vitamin D 25 hydroxy; Future - Comprehensive metabolic panel; Future - Thyroid profile includes TSH FT4; Future - Urinalysis; Future - Urine Culture; Future 7. Confusion - [facility] [place] [place] - Folate; Future - Vitamin B12; Future - Vitamin D 25 hydroxy; Future - Comprehensive metabolic panel; Future - Thyroid profile includes TSH FT4; Future - Urinalysis; Future - Urine Culture; Future 8. Seizure disorder, complex partial (CMS-HCC) Medical Decision Making: Fall could have been a seizure. On Depakote. Could help both seizures and behavioral management. Likely worsening multiple infarctions state. Behavioral disorder. Evidence of left frontal hemorrhagic infarction. Limitations discussed reviewed and explained to patient and family. Discontinue amantadine. Discontinue donepezil. Continue Depakote. Obtain laboratory studies. Counseling advised. Progressive cognitive decline expected and discussed. and [id number]-ldm express understanding. If agitation persists low-dose Seroquel will be offered. Counseling: Plan: Follow Up: 2 months Patient Instructions: ALEXANDER MUNSON MD Neurologist This note was created with the assistance of a speech-recognition program. Although the intention is to generate a document that actually reflects the content of the visit, no guarantees can be provided that every mistake has been identified and corrected by editing. documented in this encounter [employer] Evaluation note Note Date & Type Note Facility Evaluation note Diagnosis Multiple cerebral infarctions (CMS-HCC)- Primary Left frontal hemorrhage Unspecified psychosis Encephalopathy Unspecified encephalopathy Agitated Other and unspecified special symptom or syndrome, not elsewhere classified Hypothyroidism, unspecified type Vitamin D deficiency Seizure disorder, complex partial (CMS-HCC) Localization-related (focal) (partial) epilepsy and epileptic syndromes with complex partial seizures, without mention of intractable epilepsy documented in this encounter [facility] Instructions Note Date & Type Note Facility Instructions Not on filedocumented in this en counter [facility] [employer] [facility] Additional Source Comments Reason for Visit (unrecogniz ed section and content) Reason Comments Altered Mental Status Specialty Diagnoses / Procedures Referred By Shefali sierra Referred To Contact Neurology Diagnoses Confusion Marcia Napoles, HOLLIE [address], [address] [place] [address] [facility] Neurology [address] [place] [address] Referral ID Status Reason Start Date Expiration Date Visits Requested Visits Authorized [id number] Pending Review Specialty Services Required 06/17/2023 06/16/2024 1 1 FOR RECORDS PERTAINING TO PATIENTS WHO ARE OR HAVE BEEN ENROLLED IN A CHEMICAL DEPENDENCY/SUBSTANCEABUSE PROGRAM, SOME INFORMATION MAY BE OMITTED. This clinical summary was aggregated from multiple sources. Caution should be exercised in using it in the provision of clinical care. This summary normalizes information from multiple sources, and as a consequence, information in this document may materially change the coding, format and clinical context of patient data. In addition, data may be omitted in some cases. CLINICAL DECISIONS SHOULD BE BASED ON THE PRIMARY CLINICAL RECORDS. [facility]. provides no warranty or guarantee of the accuracy or completeness of information in this document.
[2023-08-26 08:40] LABS: Hematocrit 33.3 % (36.0-48.0); Hemoglobin 10.4 g/dL (12.0-16.0); Mean Corpuscular HGB Conc 31.2 g/dL (29.9-35.2); Mean Corpuscular Hemoglobin 31.8 pg (26.7-34.0); Mean Corpuscular Volume 101.8 fL (81.0-99.0); Mean Platelet Volume 9.9 fL (9.5-13.5); Platelet Count 314 10^3/uL (150-450); Red Blood Count 3.27 10^6/uL (4.20-5.40); Red Cell Distribution Width 14.1 % (11.0-15.0); White Blood Count 20.5 10^3/uL (4.0-11.0)
[2023-08-26 09:29] LABS: Segmented Neut Absolute Manual 16.81 10^3/uL (1.4-6.5)
[2023-08-26 09:30] LABS: Eosinophils Absolute Manual 0.41 10^3/uL (0.00-0.70); Lymphocytes Absolute Manual 0.82 10^3/uL (1.20-3.80); Monocytes Absolute Manual 1.43 10^3/uL (0.30-0.80)
[2023-08-26 09:35] LABS: Anion Gap 11.6; BUN Creatinine Ratio 17.4; Carbon Dioxide 29.8 mmol/L (21.0-32.0); Chloride 100 mmol/L (98-107); Estimated GFR (African America 42 (>=60); Estimated GFR (Non-African Ame 34 (>=60); Glucose 79 mg/dL (74-106); Potassium 4.4 mmol/L (3.5-5.1); Sodium 137 mmol/L (136-145)
== END 2023-08-26 03:31 | disposition home or self-care (01) ==
LOC: LAB 03:30
PROVIDERS: PCP Family Medicine; Visit Provider Nurse Practitioner Family
DX: B99.9 Unspecified infectious disease (principal); D72.829 Elevated white blood cell count, unspecified
CPT/HCPCS: 36415; 80048; 84145; 85007; 85027; 87040

== ENCOUNTER 2023-08-26 12:41 | Outpatient (OUT) | payer MEDICARE, SELFPAY ==
--- OUTSIDE RECORDS SUMMARY | 2023-08-26 12:46 | XMS_ITS | CCD ---
Author Name Unknown Address [address] [place] [id number] Organization [facility] Care Team Providers Care Mercerizing Range Controller Name Role Phone Unavailable Primary Care Provider Unavailabl e Allergies Allergy Classification Reported Allergen(s) Allergy Type Date of Onset Reaction(s) Facility (1 source) [facility] Drug Allergy 05-11-2023 [facility] Medications Current Medications Medication Drug Class(es) Dates [...] 160 cm Alexander Munson MD Work Phone: [facility] 08-11-2023 13:58-0500 Body mass index (BMI) [Ratio] 23.03 kg/m2 Alexander Munson MD Work Phone: [facility] 08-11-2023 13:58-0500 Body weight 58.97 kg Alexander Munson MD Work Phone: [facility] 08-11-2023 13:58-0500 Diastolic blood pressure 68 mm[Hg] Alexander Munson MD Work Phone: [facility] 08-11-2023 13:58-0500 Systolic blood pressure 106 mm[Hg] Alexander Munson MD Work Phone: [facility] Encounters Encounter Date Encounter Type Care Provider Facility Start: 08-11-2023 End: 08-11-2023 Office outpatient new 45 minutes Alexander Munson MD Work Phone: [facility] - Alexander Munson MD Comment on above: Multiple cerebral in farctions (CMS-HCC) (Primary Dx); Left frontal hemorrhage; Encephalopathy; Agitated; Hypothyroidism, unspecified type; Vitamin D deficiency; Confusion; Seizure disorder, complex partial ([facility]-HCC) Plan of Treatment Date Care Activity Detail Author Start: 08-11-2024 Adult BMI Screening Adult BMI Screen ing [facility] Start: 08-11-2024 Tobacco Screening Tobacco Screening [facility] Start: 10-06-2023 End: 10-06-2023 Patient encounter procedure 10/06/2023 1:15 PM EST Office Visit [facility] - MD [address] [place] [address] Alexander Munson MD [address] [place], [place] [id number] [facility] - Alexander Munson MD Start: 04-15-2023 Influenza vaccination Influenza Vacc ine [facility] Start: 2015 Fall Risk Screening [facility] Start: 2000 Administration of varicella zoster vaccine Zoster (Shingles) Vaccine (1 of 2) [facility] Start: 1969 DTaP,Tdap and Td Vaccines (1 - Tdap) DTaP,Tdap and Td Vaccines (1 - Tdap) [facility] Start: 1962 Depression Screening [facility]ing [facility] Start: 1950 Medicare Annual Well ness Visit Medicare Annual Wellness Visit [facility] End: 08-11-2024 Bacteria identified in Urine by Culture Urine Culture Microbiology Routine Left frontal hemorrhage Multiple cerebral infarctions (CMS-HCC) Encephalopathy Agitated Hypothyroidism, unspecified type Vitamin D deficiency 1 Occurrences starting 08/11/2023 until 08/11/2024 [facility] Comment on above: 1 Occurrences starti ng 08/11/2023 until 08/11/2024 End: 08-11-2024 Comprehensive metabolic 2000 panel - Serum or Plasma Comprehensive metabolic panel Lab Routine Left frontal hemorrhage Multiple cerebral infarctions (CMS-HCC) Encephalopathy Agitated Hypothyroidism, unspecified type Vitamin D deficiency 1 Occurrences starting 08/11/2023 until 08/11/2024 [employer] Comment on above: 1 Occurrences starti ng 08/11/2023 until 08/11/2024 End: 08-11-2024 Cyanocobalamin vitamin b-12 Vitamin B12 Lab Routine Left frontal hemorrhage Multiple cerebral infarctions (CMS-HCC) Encephalopathy Agitated Hypothyroidism, unspecified type Vitamin D deficiency 1 Occurrences starting 08/11/2023 until 08/11/2024 [employer] Comment on above: 1 Occurrences starti ng 08/11/2023 until 08/11/2024 End: 08-11-2024 Folate Folate Lab Routine Left frontal hemorrhage Multiple cerebral infarctions (CMS-HCC) Encephalopathy Agitated Hypothyroidism, unspecified type Vitamin D deficiency 1 Occurrences starting 08/11/2023 until 08/11/2024 [facility]: Comment on above: 1 Occurrences starti ng 08/11/2023 until 08/11/2024 End: 08-11-2024 Thyroid profile includes TSH FT4 Thyroid profile includes TSH FT4 Lab Routine Left frontal hemorrhage Multiple cerebral infarctions (CMS-HCC) Encephalopathy Agitated Hypothyroidism, unspecified type Vitamin D deficiency 1 Occurrences starting 08/11/2023 until 08/11/2024 [facility] Comment on above: 1 Occurrences starti ng 08/11/2023 until 08/11/2024 End: 08-11-2024 Urinalysis Urinalysis Lab Routine Left frontal hemorrhage Multiple cerebral infarctions (CMS-HCC) Encephalopathy Agitated Hypothyroidism, unspecified type Vitamin D deficiency 1 Occurrences starting 08/11/2023 until 08/11/2024 [facility] Comment on above: 1 Occurrences starti ng 08/11/2023 until 08/11/2024 End: 08-11-2024 Vitamin D 25 hydroxy Vitamin D 25 hydroxy Lab Routine Left frontal hemorrhage Multiple cerebral infarctions (CMS-HCC) Encephalopathy Agitated Hypothyroidism, unspecified type Vitamin D deficiency 1 Occurrences starting 08/11/2023 until 08/11/2024 [facility] Comment on above: 1 Occurrences starti ng 08/11/2023 until 08/11/2024 Immunizations Immunization Date Immunization Notes Care Provider Fa cili 06-30-2021 influenza virus vaccine, unspecified formulation Alexander Munson MD Work Phone: [facility] [employer] [facility] Payers Date Payer Category Payer Medicare A[employer] MEDICARE A ETNA MEDICARE PLAN (PPO) [id number] 2021-Present [phone] [address] [place] [address] [id number] Social History Date Type Detail Facility Start: 08-11-2023 Tobacco smoking stat us NEIS [facility] End: 03-15-2023 History of tobacco use [facility]oker [facility] End: 03-15-2023 History of tobacco use Cigarette Smoker [facility] Start: 08-11-2023 Tobacco use and exposure Smoke less tobacco non-user [facility] Start: 08-11-2023 Alcohol intake Lifetime non-d dian (finding) [facility] Start: 01-24-2019 End: 08-11-2023 History of Social function [facility] Start: 01-24-2019 End: 08-11-2023 Tobacco use panel [facility] Housing Instability Unknown [facility] Start: 1950 Sex Assigned At Not on file P [facility] History of Present illness Narrative 08-11-2023 [...] with front wheels. Patient was seen at [facility] 08/03/2023-08/07/2023. Patient went to the hospital because [...] Curtis is a 73 y.o. female and [id number]. This lady was recently discharged from [facility]. Progressive agitation combativeness and aggression at home. Confusion. Unable to carry out activities of daily life. Now has home care. Will be starting speech physical and occupational therapies. Multiple investigations done at [facility] are reviewed. Initial presentation was after [...] History: Past Medical History: Diagnosis Date Cancer ([facility]) Stroke ([facility]) Social History: Social History Socioeconomic History Marital [...] downgoing to Babinski testing. COORDINATION: Normal to [id number]-vl-plem. GAIT AND STATION: Got up to stand [...] abnormalities were seen. CRYSTAL AMAYA MD Diplomate, [place] [employer]iatry and Neurology Diplomate, [place] Board of Clinical Neurophysiology Diplomate, [place] Board of Epilepsy Specimen Collected: -- Last Resulted: 08/04/23 14:55 Received From: [facility] Result Received: 08/11/23 13:48 Narrative Mild [...] artery. Assessment: 1. Left frontal hemorrhage - [facility], [place] - Folate; Future - Vitamin [...] - Urine Culture; Future 7. Confusion - [facility] - [...] Progressive cognitive decline expected and discussed. and [id number] express understanding. If agitation persists low-dose Seroquel [...] corrected by editing. documented in this encounter [employer] Evaluation note Note Date & Type [...] Not on filedocumented in this en counter [facility] [employer] [facility] Additional Source Comments Reason for Visit (unrecogniz ed section and content) Reason Comments Altered Mental Status Specialty Diagnoses / Procedures Referred By Shefali sierra Referred To Contact Neurology Diagnoses Confusion Marcia Napoles, HOLLIE [address], [address] [place] [address] [facility] Neurology [address] [place] [address] Referral ID Status Reason Start Date Expiration Date Visits Requested Visits Authorized [id number] Pending Review Specialty Services Required 06/17/2023 06/16/2024 [...] BE BASED ON THE PRIMARY CLINICAL RECORDS. [facility] [employer] [facility]. provides no warranty or guarantee of the accuracy or completeness of information in this document.
[2023-08-30 15:12] LABS: Procalcitonin 0.25 ng/mL (0.00-0.08)
== END 2023-08-26 12:42 | disposition home or self-care (01) ==
LOC: LAB 12:43
PROVIDERS: PCP Family Medicine; Visit Provider Family Medicine
DX: D72.829 Elevated white blood cell count, unspecified (principal)
CPT/HCPCS: 36415; 84145; 87040

== ENCOUNTER 2023-08-29 05:49 | Outpatient (REF) | payer MEDICARE, SELFPAY ==
--- OUTSIDE RECORDS SUMMARY | 2023-08-29 05:53 | XMS_ITS | CCD ---
Author Name Unknown Address [id number] [place] [address] Organization [facility] Care Team Providers Care Nitroglycerin Distributor Name Role Phone MAYI ADAMS Attending Unavailable MAYI ADAMS Referring Unavailable Arnaldo, Ania Unavailable HEMEYER ., DR FIERRO Admitting Unavailable HEMEYER ., DR FIERRO Attending Unavailable HEMEYER ., DR FIERRO Consulting Unavailable HEMEYER ., DR FEIRRO Primary Care Unavailable ARNALDO, ANIA Consulting Unavailable ARNALDO, ANIA Admitting Unavailable HEMEYER ., DR FIERRO Primary Care Unavailable ARNALDO, ANIA Attending Unavailable HEMEYER ., DR FIERRO Primary Care Unavailable HEMEYER ., DR FIERRO Admitting Unavailable HEMEYER ., DR FIERRO Attending Unavailable HEMEYER ., DR FIERRO Consulting Unavailable ARNALDO, ANIA Attending Unavailable HEMEYER ., DR FIERRO Primary Care Unavailable ARNALDO, ANIA Admitting Unavailable ARNALDO, ANIA Consulting Unavailable ARNALDO, ANIA Attending Unavailable ARNALDO, ANIA Consulting Unavailable ARNALDO, ANIA Admitting Unavailable HEMEYER ., DR FIERRO Primary Care Unavailable ARNALDO, ANIA Consulting Unavailable ARNALDO, ANIA Admitting Unavailable HEMEYER ., DR FIERRO Primary Care Unavailable ARNALDO, ANIA Attending Unavailable Hemeyer Espinoza BARROS Primary Care Provider AUNDREA MIXON Referring Unavailable ESPINOZA MELO Primary Care Unavailable ESPINOZA MELO Primary Care Unavailable DARON CHRISTIANSON Referring Unavailable ESPINOZA MEOL Primary Care Unavailable HARRIET GOODMAN Referring Unavailable HARRIET GOODMAN Attending Unavailable ESPINOZA MELO Primary Care Unavailable HARRIET GOODMAN Attending Unavailable GOODMAN, HARRIET L Referring [facility] Referring Unavailable [facility] Primary Care Unavailable [facility] Primary Care Unavailable DIMITRISFARZANA TONG Referring Unavailable HARRIET GOODMAN Attending Unavailable [facility] Primary Care Unavailable GOODMAN, HARRIET L Referring Unavailable GOODMANKORINY L Attending Unavailable [facility] Primary Care Unavailable GOODMAN HARRIET L Referring Unavailable GOODMAN HARRIET L Referring Unavailable GOODMANHARRIET L Attending Unavailable [facility] Primary Care Unavailable [facility] Primary Care Unavailable BOBBY ROBLERO Referring Unavailable TREMAINE MAE Attending Unavailable TREMAINE MAE Admitting Unavailable CHANNING THOMPSON Consulting Unavailable ROB PORTILLO Consulting Unavailable ANALILIA DIANA Consulting Unavailable LOPEZ WALKER Consulting Unavailable HARRIET GOODMAN Consulting Unavailable [facility] Primary Care Unavailable BART STOCK Attending Unavailable BART STOCK Consulting Unavailable BART STOCK Admitting Unavailable DEE CARRANZA Consulting Unavailable GOODMAN, HARRIET L Referring Unavailable GOODMANKORINY Ric Attending Unavailable HEMEYER, EDWARD J Primary Care Unavailable GOODMAN, HARRIET L Referring Unavailable GOODMANKORINY L Attending Unavailable [facility] Primary Care Unavailable GOODMAN, HARRIET L Referring Unavailable GOODMANJANESHARRIET L Attending Unavailable [facility] Primary Care Unavailable KORIN GOODMANY L Attending Unavailable [facility] Primary Care Unavailable GOODMAN, HARRIET L Referring Unavailable [facility] Primary Care Unavailable GOODMAN, HARRIET L Attending Unavailable GOODMAN, HARRIET L Referring Unavailable [facility] Primary Care Unavailable GOODMAN, HARRIET L Attending Unavailable GOODMAN, HARRIET L Referring Unavailable YESSY PACKER Referring Unavailable TRENA MCCLELLAN Attending Unavailable KAMERON, EDWARD J Primary Care Unavailable JANIE ARCHULETA Admitting Unavailable CORINA DISLA Referring Unavailable [facility] Consulting Unavailable YESSY PACKER Consulting Unavailable CORINA DISLA Consulting Unavailable [facility] Consulting U navailable TRENA MCCLELLAN Attending Unavailable TRENA MCCLELLAN Referring Unavailable ESPINOZA MELO Primary Care Unavailable TRENA MCCLELLAN Attending Unavailable TRENA MCCLELLAN Referring Unavailable ESPINOZA MELO Primary Care Unavailable SHANTI GORMAN Attending Unavailable SHANTI GORMAN Referring Unavailable ESPINOZA MELO Primary Care Unavailable DORCAS MITCHELL Referring Unavailable ESPINOZA MELO Primary Care Unavailable Allergies Allergy Classification Reported Allergen(s) Allergy Type Date of Onset Reaction(s) Facility (9 sources) Contrast media Propensity to adverse reactions Unknown [facility] Other (9 sources) Penicillin Drug Allergy Unknown [facility] Other (1 source) HYDROcodone Drug Allergy [address] [facility] Repository (1 source) predniSONE Drug Allergy [address] [facility] Rep[facility] (1 source) traMADol Drug Allergy [address] [facility] Repository (1 source) Tylenol-Codeine #3 Drug allergy (disorder) [address] [facility] Repository (4 sources) diazePAM; Translations: [DIAZEPAM] Drug Allergy 3 [employer] (1 source) Gadolinium Derivatives Propensity to adverse reactions to drug 3 Rash [facility] ([facility] source) Iodinated Contrast Media Propensity to adverse reactions to drug 3 Rash [facility] Medications Current Medications Medication Drug Class(es) Dates Sig (Normalized) Sig (Original) Acetaminophen (10 sources) Start: 08-03-2023 acetaminophen (TYLENOL) tablet 650 mg take 2 capsules by m outh every six hours Acetaminophen 500 MG 2 capsule as needed Orally every 6 hrs Not-Taking take 2 capsules by m outh every six hours as needed Acetaminophen 500 MG 2 capsule as needed Orally every 6 hrs Active amantadine hydrochloride 100 mg oral capsule (6 sources) Influenza A M2 Protein Inhibitor Start: 08-08-2023 take 1 capsule by mouth every other day amantadine (SYMMETREL) 100 MG capsule Take 1 capsule by mouth every other day 60 capsule 3 08/08/2023 Active Start: 08-06-2023 amantadine (SY MMETREL) capsule 100 mg Start: 07-04-2023 End: 08-07-2023 take 100 mg by mouth twice daily 100 mg, Oral, 2 TIMES DAILY, First dose on Ruby 08/04/23 at 0900, Until Discontinued ascorbic acid 500 mg chewable tablet (1 source) Vitamin C take 1 tablet by mouth every twenty-four hours Vitamin C 500 MG 1 tablet Orally Once a day Active azaTHIOprine 50 mg oral tablet (8 sources) Purine Antimetabolite take 2 tablets by mouth once daily azaTHIOprine 50 MG 2 Tablet Orally Daily for 30 day(s) Active cholecalciferol 0.05 mg oral tablet (6 sources) Vitamin D take 1 tablet by mouth every twenty-four hours Vitamin D 50 MCG (2000 UT) 1 tablet Orally Once a day Active ondansetron (ZOFRAN-ODT) disintegrating tablet 4 mg (1 source) Start: 2022 ondansetron (ZOFRAN-ODT) disintegrating tablet 4 mg 1000 ml sodium chloride 9 mg/ml injection (3 sources) Start: 2022 IntraVENous, at 5-250 mL/hr, PRN, if patient receiving piggyback infusions and maintenance fluids are not ordered OR KVO fluids to protect IV site / prevent frequent line interruptions/ long duration, Starting on Tue08/03/23 at 2319 For piggyback infusion, administer at same rate as piggyback for a total of 25 mL. Enter 25 mL into dose field and piggyback rate into rate field of order. If piggyback is infusing at a rate less than 100 mL/hr, enter 25 mL into dose field and 100 mL/hr into rate field of order. For KVO fluids, enter rate of 20 mL/hr or less into rate field of order. Start: 08-03-2023 take 1 dose intraven ously twice daily 5-40 mL, IntraVENous, EVERY 12 HOURS SCHEDULED (2 times per day), First dose on Tue08/03/23 at 2345, Until Discontinued For Line Patency: Peripheral IV = 5 mL; Midline or Central Line = 10 mL/lumen. If following IV push medication, administer flush at same rate as the IV push. Flush volume is determined by type of infusion therapy being given. For non-viscous solutions use: Peripheral IV = 5 mL Midline or Central Line = 10 mL/lumen For viscous solutions (i.e. blood components, parenteral nutrition, contrast media, or after obtaining blood sample) use: Peripheral IV = 10 mL Midline or Central Line = 20 mL/lumen Start: 08-03-2023 take 5-40 mL intrave nously once as needed 5-40 mL, IntraVENous, PRN, Starting on Tue08/03/23 at 2319, Until Discontinued, Line Care, After every IV line use For Line Patency: Peripheral IV = 5 mL; Midline or Central Line = 10 mL/lumen. If following IV push medication, administer flush at same rate as the IV push. Flush volume is determined by type of infusion therapy being given. For non-viscous solutions use: Peripheral IV = 5 mL Midline or Central Line = 10 mL/lumen For viscous solutions (i.e. blood components, parenteral nutrition, contrast media, or after obtaining blood sample) use: Peripheral IV = 10 mL Midline or Central Line = 20 mL/lumen divalproex sodium 500 mg delayed release oral tablet (6 sources) Mood Stabilizer, Anti-epileptic Agent Start: 08-04-2023 take 1 tablet by mouth twice daily divalproex (DEPAKOTE) [address] tablet Take 1 tablet by mouth 2 times daily 90 tablet 3 08/07/2023 Active Start: 05-10-2023 End: 09-22-2023 take 250 mg by mouth twice daily 250 mg, Oral, 2 TIMES DAILY, First dose on Ruby 08/04/23 at 0900, Until Discontinued Do not crush or break. Vitamin C 500 MG (3 sources) take 1 tablet by diego th once daily Vitamin C 500 MG 1 tablet Orally Once a day Active Completed/Discontinued Medications Medication Drug Class(es) Dates Sig (Normalized) Sig (Original) amLODIPine 5 mg oral tablet (20 sources) Dihydropyridine Calcium Channel Adilson Start: 06-08-2023 End: 08-07-2023 take 2 tablets by mouth once daily amLODIPine (NORVASC) 5 MG tablet Take 2 tablets by mouth daily 0 06/08/2023 08/07/2023 Discontinued (Stop Taking at Discharge) Start: 04-20-2023 take 10 mg by mouth once daily 10 mg, Oral, DAILY, First dose on [facility] 08/04/23 at 0900, Until Discontinued take 2 tablets by [facility] every twenty-four hours amLODIPine Besylate 5 MG 2 tablet Orally Daily for 90 day(s) Active take 1 tablet by [facility] every twenty-four hours amLODIPine Besylate 5 MG 1 tablet Orally Daily for 90 day(s) Active carvedilol 6.25 mg oral tablet (8 sources) alpha-Adrenergic Adilson, beta-Adrenergic Adilson Start: 04-20-2023 take 6.25 mg by mouth twice daily at mealtime 6.25 mg, Oral, 2 TIMES DAILY WITH MEALS, First dose on [facility] 08/04/23 at 0800, Until Discontinued Administer with food to minimize the risk of orthostatic hypotension citalopram 10 mg oral tablet (8 sources) Serotonin Reuptake Inhibitor Start: 04-21-2023 take 10 mg by mouth once daily 10 mg, Oral, DAILY, First dose on [facility] 08/04/23 at 0900, Until Discontinued donepezil hydrochloride 10 mg oral tablet (9 sources) Start: 05-18-2023 take 10 mg by mouth once daily 10 mg, Oral, NIGHTLY, First dose on [facility] 08/04/23 at 2100, Until Discontinued Start: 05-18-2023 take 1 tablet by diego once daily donepezil (ARICEPT) 10 MG tablet Take 1 tablet by mouth nightly 30 tablet 3 05/18/2023 Active Start: 04-20-2023 End: 05-17-2023 take 1 tablet by mouth once daily donepezil (ARICEPT) 5 MG tablet Take 1 tablet by mouth nightly for 27 days 27 tablet 0 04/20/2023 05/17/2023 Active 0.3 ml enoxaparin sodium 100 mg/ml prefilled syringe (1 source) Low Molecular Weight Heparin Start: 08-04-2023 inject 30 mg by subcutaneous injection once daily 30 mg, SubCUTAneous, DAILY, First dose on [facility] 08/04/23 at 0900, Until Discontinued Indication of Use: Prophylaxis-DVT/PE Administer by deep subCUTAneous injection with pt lying down. Alternate injection sites on abdominal wall. Do not rub site after injection. Check with provider prior to any invasive procedure. Renal dose adjustment per P&T Guidelines ferrous sulfate 325 mg oral tablet (4 sources) End: 08-07-2023 take 1 tablet by mouth every other day ferrous sulfate (IRON 325) 325 (65 Fe) MG tablet Take 1 tablet by mouth every other day 0 08/07/2023 Discontinued (Stop Taking at Discharge) take 1 tablet by diego th once daily at breakfast ferrous sulfate (IRON 325) 325 (65 Fe) M G tablet Take 1 tablet by mouth daily (with breakfast) 0 Active furosemide 20 mg oral tablet (17 sources) Loop Diuretic End: 08-07-2023 take 1 tablet by mouth once daily furosemide (LASIX) 20 MG tablet Take 1 tablet by mouth daily 0 08/07/2023 Discontinued (Stop Taking at Discharge) gadoteridol (PROHANCE) injection 12 mL (1 source) Start: 08-05-2023 End: 08-05-2023 gadoteridol (PROHANCE) injection 12 mL hydrOXYzine hydrochloride 10 mg oral tablet (1 source) Antihistamine Start: 08-03-2023 End: 08-03-2023 hydrOXYzine HCl (ATARAX) tablet 10 mg levETIRAcetam 500 mg oral tablet (5 sources) Start: 08-03-2023 End: 08-04-2023 levETIRAcetam (KEPPRA) tablet 500 mg Start: 04-20-2023 take 1 tablet by diego th twice daily levETIRAcetam (KEPPRA) 500 MG tablet Take 1 tablet by mouth 2 times daily 60 tablet 3 04/20/2023 Active take 1 tablet by diego th every twelve hours levETIRAcetam 500 MG 1 tablet Orally every 12 hrs Active levothyroxine sodium 0.088 mg oral tablet (14 sources) l-Thyroxine Start: 08-04-2023 take 88 ug by mouth once daily 88 mcg, Oral, DAILY, First dose on [place] 08/04/23 at 0700, Until Discontinued Tube feeding (TF) interaction, obtain physician order to manage, recommend holding TF for 30 minutes before and after dose. take 1 tablet by diego th every twenty-four hours Levothyroxine Sodium 88 MCG 1 capsule Orally Once a day Active 1 ml LORazepam 2 mg/ml injection (2 sources) Benzodiazepine Start: 08-03-2023 4 mg, IntraVEN ous, EVERY 5 MIN PRN, Starting on Tue08/03/23 at 2319, Until Discontinued, Seizures May repeat dose (4 mg) X 1 for seizures lasting more than 5 minutes. Notify provider if administered for seizure. Start: 08-03-2023 End: 08-03-2023 LORazepam (ATIVAN) tablet 0. 5 mg Multi Vitamin Daily - (9 sources) take 1 tablet by diego th once daily Multi Vitamin Daily - 1 tablet Orally Once a day Not-Taking take 1 tablet by mouth once wong y Multi Vitamin Daily - 1 tablet Orally Once a day Active polyethylene glycol 3350 75297 mg powder for oral solution (1 source) Osmotic Laxative Start: 08-03-2023 17 g, Oral, D AILY PRN, Starting on Tue08/03/23 at 2319, Until Discontinued, Constipation First line therapy for constipation PROCRIT INJECTION - 1000 units (20 sources) Start: 08-23-2019 PROCRIT INJECT ION - 1000 units Aug, 1000 U Start: 07-11-2019 PROCRIT INJECT ION - 1000 units Jun, 1000 U Start: 06-13-2019 PROCRIT INJECT ION - 1000 units May, 1000 U Start: 05-16-2019 PROCRIT INJECT ION - 1000 units May, 1000 U Start: 04-19-2019 PROCRIT INJECT ION - 1000 units Apr, 1000 U Start: 03-19-2019 PROCRIT INJECT ION - 1000 units Mar, 1000 U technetium 99m DTPA solution 45 millicurie (1 source) Start: 08-04-2023 End: 08-04-2023 technetium 99m DTPA solution 45 millicurie technetium albumin aggregated (MAA) solution 6.1 millicurie (1 source) Start: 08-04-2023 End: 08-04-2023 technetium albumin aggregated (MAA) solution 6.1 millicurie triamcinolone acetonide 0.001 mg/mg topical ointment (3 sources) Corticosteroid Start: 05-03-2023 End: 08-07-2023 triamcinolone (KENALOG) 0.1 % ointment APPLY TO AFFECTED AREA EVERY DAY AT BEDTIME 0 05/03/2023 08/07/2023 Discontinued (Stop Taking at Discharge) Problems Active Problems Problem Classification Problem Date Documented Date Episodic/Chronic Acute cerebrovascular disease (18 sources) Cerebral hemorrhage; Translations: [Nontraumatic intracerebral hemorrhage, unspecified] Onset: 3 04-17-2023 Chronic Chronic kidney disease (20 sources) Chronic kidney disease stage 3; Translations: [Chronic kidney disease, stage 3 (moderate)] Onset: 1 Resolved: 2 Chronic Complications of surgical procedures or medical care (4 sources) Postprocedural hypothyroidism; Translations: [POSTPROCEDURAL HYPOTHYROIDISM] Onset: 3 Chronic Deficiency and other anemia (9 sources) Anemia of renal disease; Translations: [Anemia in chronic kidney disease] Chronic Deficiency and other anemia (7 sources) Anemia in chronic kidney disease; Translations: [ANEMIA IN CHRONIC KIDNEY DISEASE] Onset: 1 Resolved: 2 Chronic E Codes: Fall (1 source) Fall Onset: 3 Epilepsy; convulsions (3 sources) Seizure; Translations: [Unspecified convulsions] Onset: 3 08-05-2023 Episodic Essential hypertension (13 sources) Hypertensive disorder; Translations: [Essential (primary) hypertension] Onset: 3 04-17-2023 Chronic Genitourinary symptoms and ill-defined conditions (11 sources) Other microscopic hematuria; Translations: [Bacteriuria] Onset: 1 Resolved: 2 Episodic Hypertension with complications and secondary hypertension (17 sources) Malignant hypertensive chronic kidney disease; Translations: [Hypertensive chronic kidney disease with stage 1 through stage 4 chronic kidney disease, or unspecified chronic kidney disease] Onset: 1 Resolved: 2 Chronic Malaise and fatigue (1 source) Chronic fatigue, unspecified; Translations: [CHRONIC FATIGUE UNSPECIFIED] Onset: 3 Chronic Malaise and fatigue (1 source) Weakness; Translations: [Weakness] Onset: 3 Episodic Nutritional deficiencies (1 source) Vitamin D deficiency, unspecified; Translations: [Vitamin D deficiency, unspecified] Onset: 3 Chronic Other and ill-defined cerebrovascular disease (4 sources) Cerebral amyloid angiopathy; Translations: [Cerebral amyloid angiopathy] Onset: 3 04-17-2023 Chronic Other circulatory disease (9 sources) Arteritis; Translations: [Arteritis, unspecified] Chronic Other circulatory disease (7 sources) Arteritis, unspecified; Translations: [ARTERITIS UNSPECIFIED] Onset: 1 Resolved: 2 Chronic Other diseases of kidney and ureters (9 sources) Secondary hyperparathyroidism; Translations: [Secondary hyperparathyroidism of renal origin] Chronic Other diseases of kidney and ureters (7 sources) Secondary hyperparathyroidism of renal origin; Translations: [SEC HYPERPARATHYROIDISM RENAL ORIGN] Onset: 1 Resolved: 2 Chronic Other hereditary and degenerative nervous system conditions (1 source) Mild cognitive impairment, so stated; Translations: [Mild cognitive impairment of uncertain or unknown etiology] Onset: 3 Chronic Other nervous system disorders (1 source) Encephalopathy, unspecified; Translations: [Encephalopathy, unspecified] Onset: 3 Chronic Other nervous system disorders (1 source) Other speech disturbances; Translations: [Other speech disturbances] Onset: 3 Episodic Residual codes; unclassified (2 sources) Restlessness and agitation; Translations: [Restlessness and agitation] Onset: 3 Chronic Residual codes; unclassified (2 sources) Disorientation, unspecified; Translations: [Disorientation, unspecified] Onset: 3 Episodic Syncope (7 sources) Syncope and collapse; Translations: [Syncope and collapse] Onset: 3 08-03-2023 Episodic Systemic lupus erythematosus and connective tissue disorders (20 sources) SLE glomerulonephritis syndrome; Translations: [Glomerular disease in systemic lupus erythematosus] Onset: 1 Resolved: 2 Chronic Thyroid disorders (1 source) Hypothyroidism, unspecified; Translations: [Hypothyroidism, unspecified] Onset: 3 Chronic Past or Other Problems Problem Classification Problem Date Documented Date Episodic/Chronic Acute and unspecified renal failure (6 sources) Acute injury of kidney; Translations: [Acute kidney failure, unspecified] Onset: 3 04-27-2023 Episodic Cancer of thyroid (1 source) Personal history of malignant neoplasm of thyroid; Translations: [PERSONAL HX MALIG NEOPLASM THYROID] Onset: 3 Episodic Mood disorders (4 sources) Disturbance in mood; Translations: [Emotional lability] Onset: 3 04-18-2023 Episodic Other screening for suspected conditions (not mental disorders or infectious disease) (5 sources) Encounter for screening for lipoid disorders; Translations: [Abnormal electroencephalogram [EEG]] Onset: 2 Episodic Residual codes; unclassified (4 sources) Memory impairment; Translations: [Other amnesia] Onset: 3 04-18-2023 Episodic Residual codes; unclassified (1 source) Other amnesia; Translations: [Other amnesia] Onset: 3 Episodic Urinary tract infections (4 sources) Urinary tract infectious disease; Translations: [Urinary tract infection, site not specified] Onset: 3 Resolved: 3 04-17-2023 Episodic Results Test Name Value Interpretation Reference Range Facility CBC AND AUTO DIFFon 08-23-19 24 Eosinophils (Bld) [#/Vol] 0.2 10*3/uL Normal 0.0-0.4 [facility] Comment on above: Performed By: #### C BARTOLO, 37075-1, CBCA, #### [facility] ([id number]) [address] [place] [place] [address] Eosinophils/100 WBC (Bld) 1.0 % Normal [facility] Comment on above: Performed By: #### C BARTOLO, 23316-6, CBCA, #### [facility] ([id number]) [address] [place] [address] Erythrocyte distribution width (RBC) [Ratio] 14.4 % Normal 11.5-15.0 [facility] Comment on above: Performed By: #### C BARTOLO, 19012-8, CBCA, #### [facility] ([id number]) [address] [place] [address] Hematocrit (Bld) [Volume fraction] 30.7 % Low 35-47 [facility] Comment on above: Performed By: #### C BARTOLO, 36547-3, CBCA, #### [facility] ([id number]) [address] [place] [address] Hemoglobin (Bld) [Mass/Vol] 10.0 g/dL Low 11.7-15.5 [facility] Comment on above: Performed By: #### C BARTOLO, 64076-9, CBCA, #### [facility] ([id number]) [address] [place] [address] Lymphocytes (Bld) [#/Vol] 0.9 10*3/uL Low 1.0-3.5 [facility] Comment on above: Performed By: #### C BARTOLO, 81226-5, CBCA, #### [facility] ([id number]) [address] [place] [address] Lymphocytes/100 WBC (Bld) 5.8 % Normal [facility] Comment on above: Performed By: #### Ever MCFARLAND, 37914-8, CBCA, #### [facility] ([id number]) [address] [place] [address] MCH (RBC) [Entitic mass] 31.6 pg Normal 27-34 [facility] Comment on above: Performed By: #### C BARTOLO, 80905-2, CBCA, #### [facility] ([id number]) [address] [place] [address] MCHC (RBC) [Mass/Vol] 32.6 g/dL Normal 32-36 [facility] Comment on above: Performed By: #### C BARTOLO, 91324-6, CBCA, 97339-6 #### [facility] ([id number]) [address] [place] [address] MCV (RBC) [Entitic vol] 97 fL Normal 80-100 [facility] Comment on above: Performed By: #### C BARTOLO, 57089-8, CBCA, #### [facility] ([id number]) [address] [place] [address] Monocytes (Bld) [#/Vol] 3.3 10*3/uL High 0-0.9 [facility] Comment on above: Performed By: #### C MP, 65060-3, CBCA, #### [facility] ([id number]) [address] [place] [address] Monocytes/100 WBC (Bld) 21.2 % Normal [facility] Comment on above: Performed By: #### [place], 30586-3, CBCA, #### [facility] ([id number]) [address] [address] MYELOCYTE 2.9 % Normal [facility] Comment on above: Performed By: #### C MP, , CBCA, #### [facility] ([id number]) [address] [place] [address] Neutrophils (Bld) [#/Vol] 10.8 10*3/uL High 1.5-6.6 [facility] Comment on above: Performed By: #### C BARTOLO, 58740-0, CBCA, #### [facility] ([id number]) [address] [place] [address] Platelet mean volume (Bld) [Entitic vol] 7.8 fL Normal 7-12 [facility] Comment on above: Performed By: #### [place], 05139-5, CBCA, #### [facility] ([id number]) [address] [place] [address] Platelets (Bld) [#/Vol] 201 10*3/uL Normal 150-450 [facility] Comment on above: Performed By: #### [place], 72590-1, CBCA, #### [facility] ([id number]) [address] [place] [address] POLYCHROMASIA 1+ Abnormal NONE [facility] Comment on above: Performed By: #### [place], 37735-2, CBCA, #### [facility] ([id number]) [address] [place] [address] RBC COUNT 3.17 X10E12/L Low 3.80-5.20 [facility] Comment on above: Performed By: #### [place], 20517-2, CBCA, 56836-5 #### [facility] ([id number]) [address] [place] [address] SEG NEUTROPHIL 69.1 % Normal [facility] Comment on above: Performed By: #### C MP, 33585-3, CBCA, #### [facility] ([id number]) [address] [place] [address] WBC (Bld) [#/Vol] 15.6 10*3/uL High 4.0-11.0 [facility] Comment on above: Performed By: #### C BARTOLO, 55661-4, CBCJaylen, #### [facility] ([id number]) [address] [place] [address] COMPREHENSIVE METABOLIC PANE Keenan 08-23-2023 Albumin [Mass/Vol] 1.9 g/dL Low 3.2-5.3 [facility] Comment on above: Performed By: #### C MP, 79938-4, CBCA, #### [facility] ([id number]) [address] [place] [address] ALP [Catalytic activity/Vol] 41 U/L Normal 39-130 [facility] Comment on above: Performed By: #### C MP, 85454-3, CBCA, 75708-8 #### [facility] ([id number]) [address] [place] [address] ALT [Catalytic activity/Vol] 30 U/L Normal 0-31 [facility] Comment on above: Performed By: #### C MP, 01102-0, CBCA, 56091-8 #### [facility] ([id number]) [address] [place] [address] Anion gap [Moles/Vol] 6 mmol/L Normal 5-15 [facility] Comment on above: Performed By: #### C BARTOLO, 11093-9, CBCA, #### [facility] ([id number]) [address] [place] [address] AST [Catalytic activity/Vol] 44 U/L High 0-41 [facility] Comment on above: Performed By: #### C BARTOLO, 80916-6, CBCA, #### [facility] ([id number]) [address] [facility] [place] [address] Bilirubin [Mass/Vol] 0.6 mg/dL Normal 0.3-1.2 [facility] Comment on above: Performed By: #### C BARTOLO, 20827-3, CBCA, #### [facility] ([id number]) [address] [facility] [place] [address] Calcium [Mass/Vol] 8.0 mg/dL Low 8.5-10.5 [facility] Comment on above: Performed By: #### C BARTOLO, 15040-0, CBCA, #### [facility] ([id number]) [address] [place] [address] Chloride [Moles/Vol] 101 mmol/L Normal 98-109 [facility] Comment on above: Performed By: #### C BARTOLO, 19894-9, CBCA, #### [facility] ([id number]) [address] [place] [address] CO2 [Moles/Vol] 26 mmol/L Normal 22-32 [facility] Comment on above: Performed By: #### C BARTOLO, 12408-8, CBCA, #### [facility] ([id number]) [address] [place] [address] Creatinine [Mass/Vol] 1.28 mg/dL High 0.40-1.00 [facility] Comment on above: Result Comment: METH OD TRACEABLE TO IDMS STANDARD Performed By: #### C BARTOLO, 31647-5, CBCA, #### [facility] ([id number]) [address] [place] [place] [address] GFR/1.73 sq M.predicted among non-blacks MDRD (S/P/Bld) [Vol rate/Area] 44 mL/min/{1.73_m2} Low >59 [facility] Comment on above: Result Comment: Reported eGFR is based on the CKD-EPI 2020 equation that does not use a race coefficient. Performed By: #### C BARTOLO, , CBCA, #### [facility] ([id number]) [address] [facility] [place] [address] Glucose [Mass/Vol] 91 mg/dL Normal 65-99 [facility] Comment on above: Performed By: #### C BARTOLO, , REFUGIO, #### [facility] ([id number]) [address] [place] [address] Potassium [Moles/Vol] 4.2 mmol/L Normal 3.5-5.0 [facility] Comment on above: Performed By: #### C BARTOLO, , CBCA, #### [facility] ([id number]) [address] [facility] [place] [address] Protein [Mass/Vol] 5.7 g/dL Low 6.0-8.0 [facility] Comment on above: Performed By: #### C BARTOLO, , CBCA, #### [facility] ([id number]) [address] [place] [address] Sodium [Moles/Vol] 133 mmol/L Low 134-146 [facility] Comment on above: Performed By: #### C BARTOLO, 06387-1, CBCA, #### [facility] ([id number]) [address] [place] [address] Urea nitrogen [Mass/Vol] 21 mg/dL Normal 5-27 [facility] Comment on above: Performed By: #### C BARTOLO, 41926-1, CBCA, #### [facility] ([id number]) [address] [facility] [place] [address] MAGNESIUMon 08-23-2023 Magnesium [Mass/Vol] 1.8 mg/dL Normal 1.8-2.6 [facility] Comment on above: Performed By: #### C MP, 76882-3, CBCA, 76520-4 #### [facility] ([id number]) [address] [facility] [place] [address] CBC AND AUTO DIFFon 08-22-19 24 Band form neutrophils/100 WBC (Bld) 4.8 % Normal [facility] Comment on above: Performed By: #### 3 5365-6, 228-8, CMP, THYR, 2132-04 #### [facility] ([id number]) [address], [address] [place] [address] Eosinophils (Bld) [#/Vol] 0.2 10*3/uL Normal 0.0-0.4 [facility] Comment on above: Performed By: #### 3 5365-6, 2283-8, CMP, THYR, 2132-04 #### [facility] ([id number]) [address], [address] [place] [address] Eosinophils/100 WBC (Bld) 1.0 % Normal [facility] Comment on above: Performed By: #### 3 5365-6, 2283-8, CMP, THYR, 2132-04 #### [facility] ([id number]) [address], [address] [place] [address] Erythrocyte distribution width (RBC) [Ratio] 14.1 % Normal 11.5-15.0 [facility] Comment on above: Performed By: #### 3 5365-6, 228-8, CMP, THYR, 2132-04 #### [facility] ([id number]) [address], [address] [place] [address] Hematocrit (Bld) [Volume fraction] 31.0 % Low 35-47 [facility] Comment on above: Performed By: #### 3 5365-6, 2283-8, CMP, THYR, 2132-04 #### [facility] ([id number]) [address], [address] [place] [address] Hemoglobin (Bld) [Mass/Vol] 10.4 g/dL Low 11.7-15.5 [facility] Comment on above: Performed By: #### 3 5365-6, 2283-8, CMP, THYR, 2132-04 #### [facility] ([id number]) [address], [facility] [address] [place] [address] LYMPHOCYTE, ATYPICAL 1.9 % Normal [facility] Comment on above: Performed By: #### 3 5365-6, 8, CMP, THYR, 2132-04 #### [facility] ([id number]) [address], [address] [place] [address] Lymphocytes (Bld) [#/Vol] 0.9 10*3/uL Low 1.0-3.5 [facility] Comment on above: Performed By: #### 3 5365-6, 2284-03, CMP, THYR, 2132-04 #### [facility] ([id number]) [address], [address] [place] [address] Lymphocytes/100 WBC (Bld) 3.8 % Normal [facility] Comment on above: Performed By: #### 3 5365-6, 8, CMP, THYR, 2132-04 #### [facility] ([id number]) [address] [address] [place] [address] MCH (RBC) [Entitic mass] 32.3 pg Normal 27-34 [facility] Comment on above: Performed By: #### 3 5365-6, 2283-8, CMP, THYR, 2132-04 #### [facility] ([id number]) [address], [address] [place] [address] MCHC (RBC) [Mass/Vol] 33.6 g/dL Normal 32-36 [facility] Comment on above: Performed By: #### 3 5365-6, 228-8, CMP, THYR, 2132-04 #### [facility] ([id number]) [address], [address] [place] [address] MCV (RBC) [Entitic vol] 96 fL Normal 80-100 [facility] Comment on above: Performed By: #### 3 5365-6, 2283-8, CMP, THYR, 2132-04 #### [facility] ([id number]) [address], [address] [place] [address] Monocytes (Bld) [#/Vol] 5.1 10*3/uL High 0-0.9 [facility] Comment on above: Performed By: #### 3 5365-6, 2283-8, CMP, THYR, 2132-04 #### [facility] ([id number]) [address], [address] [place] [address] Monocytes/100 WBC (Bld) 32.4 % Normal [facility] Comment on above: Performed By: #### 3 5365-6, 2283-8, CMP, THYR, 2132-04 #### [facility] ([id number]) [address], [address] [place] [address] MYELOCYTE 1.0 % Normal [facility] Comment on above: Performed By: #### 3 5365-6, 2283-8, CMP, THYR, 2132-04 #### [facility] ([id number]) [address], [address] [place] [address] Neutrophils (Bld) [#/Vol] 9.3 10*3/uL High 1.5-6.6 [facility] Comment on above: Performed By: #### 3 5365-6, 2283-8, CMP, THYR, 2132-04 #### [facility] ([id number]) [address], [address] [place] [address] Platelet mean volume (Bld) [Entitic vol] 7.9 fL Normal 7-12 [facility] Comment on above: Performed By: #### 3 5365-6, 2283-8, CMP, THYR, 2132-04 #### [facility] ([id number]) [address], [facility] [address] [place] [address] Platelets (Bld) [#/Vol] 195 10*3/uL Normal 150-450 [facility] Comment on above: Performed By: #### 3 5365-6, 2283-8, CMP, THYR, 2132-04 #### [facility] ([id number]) [address] [place] [address] RBC COUNT 3.22 X10E12/L Low 3.80-5.20 [facility] Comment on above: Performed By: #### 3 5365-6, 2284-03, CMP, THYR, 2132-04 #### [facility] ([id number]) [address], [address] [place] [address] RBC morphology finding Nom (Bld) NORMAL Normal [facility] Comment on above: Performed By: #### 3 5365-6, 8, CMP, THYR, 2132-04 #### [facility] ([id number]) [address], [address] [place] [address] SEG NEUTROPHIL 55.1 % Normal [facility] Comment on above: Performed By: #### 3 5365-6, 2283-8, CMP, THYR, 2132-04 #### [facility] ([id number]) [address], [address] [place] [address] TOXIC GRANULATION 2+ Abnormal NONE [facility] Comment on above: Performed By: #### 3 5365-6, 228-8, CMP, THYR, 2132-04 #### [facility] ([id number]) [address], [address] [place] [address] WBC (Bld) [#/Vol] 15.6 10*3/uL High 4.0-11.0 [facility] Comment on above: Performed By: #### 3 5365-6, 228-8, CMP, THYR, 2132-04 #### [facility] ([id number]) [address], [address] [place] [address] COMPREHENSIVE METABOLIC PANE Keenan 08-22-2023 Albumin [Mass/Vol] 1.9 g/dL Low 3.2-5.3 [facility] Comment on above: Performed By: #### 3 5365-6, 2283-8, CMP, THYR, 2132-04 #### [facility] ([id number]) [address], [address] [place] [address] ALP [Catalytic activity/Vol] 42 U/L Normal 39-130 [facility] Comment on above: Performed By: #### 3 5365-6, 2283-8, CMP, THYR, 2132-04 #### [facility] ([id number]) [address], [address] [place] [address] ALT [Catalytic activity/Vol] 18 U/L Normal 0-31 [facility] Comment on above: Performed By: #### 3 5365-6, 228-8, CMP, THYR, 2132-04 #### [facility] ([id number]) [address], [address] [place] [address] Anion gap [Moles/Vol] 6 mmol/L Normal 5-15 [facility] Comment on above: Performed By: #### 3 5365-6, 2284-8, CMP, THYR, 2132-04 #### [facility] ([id number]) [address], [address] [place] [address] AST [Catalytic activity/Vol] 29 U/L Normal 0-41 [facility] Comment on above: Performed By: #### 3 5365-6, 2283-8, CMP, THYR, 2132-04 #### [facility] ([id number]) [address], [address] [place] [address] Bilirubin [Mass/Vol] 0.5 mg/dL Normal 0.3-1.2 [facility] Comment on above: Performed By: #### 3 5365-6, 8, CMP, THYR, 2132-04 #### [facility] ([id number]) [address] [place] [address] Calcium [Mass/Vol] 8.2 mg/dL Low 8.5-10.5 [facility] Comment on above: Performed By: #### 3 5365-6, 2283-8, CMP, THYR, 2132-04 #### [facility] ([id number]) [address], [address] [place] [address] Chloride [Moles/Vol] 101 mmol/L Normal 98-109 [facility] Comment on above: Performed By: #### 3 5365-6, 2283-8, CMP, THYR, 2132-04 #### [facility] ([id number]) [address], [address] [place] [address] CO2 [Moles/Vol] 27 mmol/L Normal 22-32 [facility] Comment on above: Performed By: #### 3 5365-6, 228-8, CMP, THYR, 2132-04 #### [facility] ([id number]) [address], [address] [place] [address] Creatinine [Mass/Vol] 1.25 mg/dL High 0.40-1.00 [facility] Comment on above: Result Comment: METH OD TRACEABLE TO IDMS STANDARD Performed By: #### 3 5365-6, 8, ANSELMO, THYR, 2132-04 #### [facility] ([id number]) [address], [address] [place] [address] GFR/1.73 sq M.predicted among non-blacks MDRD (S/P/Bld) [Vol rate/Area] 46 mL/min/{1.73_m2} Low >59 [facility] Comment on above: Result Comment: Reported eGFR is based on the CKD-EPI 2020 equation that does not use a race coefficient. Performed By: #### 3 5365-6, 2284-03, ANSELMO, THYR, 2132-04 #### [facility] ([id number]) [address], [address] [place] [address] Glucose [Mass/Vol] 106 mg/dL High 65-99 [facility] Comment on above: Performed By: #### 3 5365-6, 2284-03, ANSELMO, THYR, 2132-04 #### [facility] ([id number]) [address], [address] [place] [address] Potassium [Moles/Vol] 4.1 mmol/L Normal 3.5-5.0 [facility] Comment on above: Performed By: #### 3 5365-6, 2284-03, CMP, THYR, 2132-04 #### [facility] ([id number]) [address], [address] [place] [address] Protein [Mass/Vol] 5.9 g/dL Low 6.0-8.0 [facility] Comment on above: Performed By: #### 3 5365-6, 8, CMP, THYR, 2132-04 #### [facility] ([id number]) [address], [address] [place] [address] Sodium [Moles/Vol] 134 mmol/L Normal 134-146 [facility] Comment on above: Performed By: #### 3 5365-6, 2283-8, CMP, THYR, 9 #### [facility] ([id number]) [address], [facility] [address] [place] [address] Urea nitrogen [Mass/Vol] 21 mg/dL Normal 5-27 [facility] Comment on above: Performed By: #### 3 5365-6, 2283-8, CMP, THYR, 2132-04 #### [facility] ([id number]) [address], [facility] [address] [place] [address] MAGNESIUMon 08-22-2023 Magnesium [Mass/Vol] 1.8 mg/dL Normal 1.8-2.6 [facility] Comment on above: Performed By: #### 3 5365-6, 2283-8, CMP, THYR, 2132-04 #### [facility] ([id number]) [address], [address] [place] [address] CBC AND AUTO DIFFon 08-21-19 24 Band form neutrophils/100 WBC (Bld) 4.7 % Normal [facility] Comment on above: Performed By: #### 3 5365-6, 8, CMP, THYR, 2132-04 #### [facility] ([id number]) [address], [address] [place] [address] Erythrocyte distribution width (RBC) [Ratio] 14.1 % Normal 11.5-15.0 [facility] Comment on above: Performed By: #### 3 5365-6, 228-8, CMP, THYR, 9 #### [facility] ([id number]) [address] [address] [place] [address] Hematocrit (Bld) [Volume fraction] 30.5 % Low 35-47 [facility] Comment on above: Performed By: #### 3 5365-6, 2283-8, CMP, THYR, 2132-04 #### [facility] ([id number]) [address], [address] [place] [address] Hemoglobin (Bld) [Mass/Vol] 10.2 g/dL Low 11.7-15.5 [facility] Comment on above: Performed By: #### 3 5365-6, 2283-8, CMP, THYR, 2132-04 #### [facility] ([id number]) [address], [facility] [address] [place] [address] LYMPHOCYTE, ATYPICAL 1.9 % Normal [facility] Comment on above: Performed By: #### 3 5365-6, 8, CMP, THYR, 2132-04 #### [facility] ([id number]) [address], [address] [place] [address] Lymphocytes (Bld) [#/Vol] 1.2 10*3/uL Normal 1.0-3.5 [facility] Comment on above: Performed By: #### 3 5365-6, 2284-03, CMP, THYR, 2132-04 #### [facility] ([id number]) [address] [place] [address] Lymphocytes/100 WBC (Bld) 6.6 % Normal [facility] Comment on above: Performed By: #### 3 5365-6, 8, CMP, THYR, 2132-04 #### [facility] ([id number]) [address], [address] [place] [address] MCH (RBC) [Entitic mass] 32.5 pg Normal 27-34 [facility] Comment on above: Performed By: #### 3 5365-6, 8, CMP, THYR, 2132-04 #### [facility] ([id number]) [address], [address] [place] [address] MCHC (RBC) [Mass/Vol] 33.6 g/dL Normal 32-36 [facility] Comment on above: Performed By: #### 3 5365-6, 2284-8, CMP, THYR, 2132-04 #### [facility] ([id number]) [address], [address] [place] [address] MCV (RBC) [Entitic vol] 97 fL Normal 80-100 [facility] Comment on above: Performed By: #### 3 5365-6, 228-8, CMP, THYR, 2132-04 #### [facility] ([id number]) [address], [address] [place] [address] Metamyelocytes/100 WBC (Bld) 0.9 % Normal [facility] Comment on above: Performed By: #### 3 5365-6, 2283-8, CMP, THYR, 2132-04 #### [facility] ([id number]) [address], [address] [place] [address] Monocytes (Bld) [#/Vol] 3.0 10*3/uL High 0-0.9 [facility] Comment on above: Performed By: #### 3 5365-6, 228-8, CMP, THYR, 2132-04 #### [facility] ([id number]) [address], [address] [place] [address] Monocytes/100 WBC (Bld) 21.7 % Normal [facility] Comment on above: Performed By: #### 3 5365-6, 228-8, CMP, THYR, 2132-04 #### [facility] ([id number]) [address] [place] [address] MYELOCYTE 0.9 % Normal [facility] Comment on above: Performed By: #### 3 5365-6, 2284-8, CMP, THYR, 2132-04 #### [facility] ([id number]) [address] [place] [address] Neutrophils (Bld) [#/Vol] 9.5 10*3/uL High 1.5-6.6 [facility] Comment on above: Performed By: #### 3 5365-6, 228-8, CMP, THYR, 2132-04 #### [facility] ([id number]) [address], [address] [place] [address] Platelet mean volume (Bld) [Entitic vol] 7.6 fL Normal 7-12 [facility] Comment on above: Performed By: #### 3 5365-6, 2283-8, CMP, THYR, 2132-04 #### [facility] ([id number]) [address] [place] [address] Platelets (Bld) [#/Vol] 168 10*3/uL Normal 150-450 [facility] Comment on above: Performed By: #### 3 5365-6, 2283-8, CMP, THYR, 9 #### [facility] ([id number]) [address] [place] [address] RBC COUNT 3.15 X10E12/L Low 3.80-5.20 [facility] Comment on above: Performed By: #### 3 5365-6, 2283-8, CMP, THYR, 2132-04 #### [facility] ([id number]) [address], [address] [place] [address] RBC morphology finding Nom (Bld) NORMAL Normal [facility] Comment on above: Performed By: #### 3 5365-6, 228-8, CMP, THYR, 2132-04 #### [facility] ([id number]) [address], [address] [place] [address] SEG NEUTROPHIL 63.3 % Normal [facility] Comment on above: Performed By: #### 3 5365-6, 228-8, CMP, THYR, 2132-04 #### [facility] ([id number]) [address], [address] [place] [address] TOXIC GRANULATION 2+ Abnormal NONE [facility] Comment on above: Performed By: #### 3 5365-6, 228-8, CMP, THYR, 2132-04 #### [facility] ([id number]) [address], [address] [place] [address] WBC (Bld) [#/Vol] 14.0 10*3/uL High 4.0-11.0 [facility] Comment on above: Performed By: #### 3 5365-6, 228-8, CMP, THYR, 2132-04 #### [facility] ([id number]) [address], [address] [place] [address] COMPREHENSIVE METABOLIC PANE [place] 08-21-2023 Albumin [Mass/Vol] 1.8 g/dL Low 3.2-5.3 [facility] Comment on above: Performed By: #### 3 5365-6, 228-8, CMP, THYR, 2132-04 #### [facility] ([id number]) [address], [address] [place] [address] ALP [Catalytic activity/Vol] 38 U/L Low 39-130 [facility] Comment on above: Performed By: #### 3 5365-6, 2284-8, CMP, THYR, 2132-04 #### [facility] ([id number]) [address], [address] [place] [address] ALT [Catalytic activity/Vol] 8 U/L Normal 0-31 [facility] Comment on above: Performed By: #### 3 5365-6, 2284-8, CMP, THYR, 2132-04 #### [facility] ([id number]) [address], [address] [place] [address] Anion gap [Moles/Vol] 5 mmol/L Normal 5-15 [facility] Comment on above: Performed By: #### 3 5365-6, 2283-8, CMP, THYR, 2132-04 #### [facility] ([id number]) [address], [address] [place], [place] [address] AST [Catalytic activity/Vol] 15 U/L Normal 0-41 [facility] Comment on above: Performed By: #### 3 5365-6, 2283-8, CMP, THYR, 2132-04 #### [facility] ([id number]) [address], [address] [place] [address] Bilirubin [Mass/Vol] 0.4 mg/dL Normal 0.3-1.2 [facility] Comment on above: Performed By: #### 3 5365-6, 8, CMP, THYR, 2132-04 #### [facility] ([id number]) [address], [address] [place] [address] Calcium [Mass/Vol] 8.0 mg/dL Low 8.5-10.5 [facility] Comment on above: Performed By: #### 3 5365-6, 8, CMP, THYR, 2132-04 #### [facility] ([id number]) [address], [address] [place] [address] Chloride [Moles/Vol] 98 mmol/L Normal 98-109 [facility] Comment on above: Performed By: #### 3 5365-6, 2283-8, CMP, THYR, 2132-04 #### [facility] ([id number]) [address], [address] [place] [address] CO2 [Moles/Vol] 28 mmol/L Normal 22-32 [facility] Comment on above: Performed By: #### 3 5365-6, 2284-8, CMP, THYR, 2132-04 #### [facility] ([id number]) [address], [address] [place] [address] Creatinine [Mass/Vol] 1.32 mg/dL High 0.40-1.00 [facility] [facility] Comment on above: Result Comment: METH OD TRACEABLE TO IDMS STANDARD Performed By: #### 3 5365-6, 2283-8, CMP, THYR, 2132-04 #### [facility] ([id number]) [address], [address] [place] [address] GFR/1.73 sq M.predicted among non-blacks MDRD (S/P/Bld) [Vol rate/Area] 43 mL/min/{1.73_m2} Low >59 [facility] Comment on above: Result Comment: Reported eGFR is based on the CKD-EPI 2020 equation that does not use a race coefficient. Performed By: #### 3 5365-6, 2283-8, CMP, THYR, 2132-04 #### [facility] ([id number]) [address], [address] [place] [address] Glucose [Mass/Vol] 100 mg/dL High 65-99 [facility] Comment on above: Performed By: #### 3 5365-6, 2283-8, CMP, THYR, 2132-04 #### [facility] ([id number]) [address], [address] [place] [address] Potassium [Moles/Vol] 4.1 mmol/L Normal 3.5-5.0 [facility] Comment on above: Performed By: #### 3 5365-6, 2283-8, CMP, THYR, 2132-04 #### [facility] ([id number]) [address], [address] [place] [address] Protein [Mass/Vol] 5.7 g/dL Low 6.0-8.0 [facility] Comment on above: Performed By: #### 3 5365-6, 2284-8, CMP, THYR, 9 #### [facility] ([id number]) [address], [address] [place] [address] Sodium [Moles/Vol] 131 mmol/L Low 134-146 [facility] Comment on above: Performed By: #### 3 5365-6, 2284-8, CMP, THYR, 9 #### [facility] ([id number]) [address], [address] [place] [address] Urea nitrogen [Mass/Vol] 20 mg/dL Normal 5-27 [facility] Comment on above: Performed By: #### 3 5365-6, 2284-8, CMP, THYR, 9 #### [facility] ([id number]) [address], [address] [place] [address] MAGNESIUMon 08-21-2023 Magnesium [Mass/Vol] 2.0 mg/dL Normal 1.8-2.6 [facility] Comment on above: Performed By: #### 3 5365-6, 2284-8, CMP, THYR, 9 #### [facility] ([id number]) [address], [address] [place] [address] [place] [facility] ORDER[facility] TEST NAME VALPF VALPROIC ACID FREE SERUM Normal [facility] Comment on above: Performed By: #### [place], [address]-0, CBCA, 40977-1 #### [facility] ([id number]) [address] [place] [address] TEST RESULT SEE COMMENTS 10:28 PM Normal [facility] Comment on above: Result Comment: NOTE Test Result Flag Unit RefValue Valproic Acid, Free, S 5 mcg/mL 5 - 25 Test Performed by: [place] [id number] Improvement Analyst: Hira Cantu M.D. Ph.D.; CLIA# [id number] Performed By: #### [place], [address]-2, CBCA, 84164-6 #### [facility] ([id number]) [address] [place] [address] CBC AND AUTO DIFFon 08-20-19 24 Eosinophils (Bld) [#/Vol] 0.2 10*3/uL Normal 0.0-0.4 [facility] Comment on above: Performed By: #### 3 5365-6, 2284-8, CMP, THYR, 2132-04 #### [facility] ([id number]) [address], [address] [place] [address] Eosinophils/100 WBC (Bld) 1.9 % Normal [facility] Comment on above: Performed By: #### 3 5365-6, 2283-8, CMP, THYR, 2132-04 #### [facility] ([id number]) [address], [address] [place] [address] Erythrocyte distribution width (RBC) [Ratio] 14.0 % Normal 11.5-15.0 [facility] Comment on above: Performed By: #### 3 5365-6, 228-8, CMP, THYR, 2132-04 #### [facility] ([id number]) [address], [address] [place] [address] Hematocrit (Bld) [Volume fraction] 32.5 % Low 35-47 [facility] Comment on above: Performed By: #### 3 5365-6, 2284-8, CMP, THYR, 2132-04 #### [facility] ([id number]) [address], [address] [place] [address] Hemoglobin (Bld) [Mass/Vol] 10.6 g/dL Low 11.7-15.5 [facility] Comment on above: Performed By: #### 3 5365-6, 2283-8, CMP, THYR, 2132-04 #### [facility] ([id number]) [address], [address] [place] [address] LYMPHOCYTE, ATYPICAL 5.6 % Normal [facility] Comment on above: Performed By: #### 3 5365-6, 2283-8, CMP, THYR, 2132-04 #### [facility] ([id number]) [address], [address] [place] [address] Lymphocytes (Bld) [#/Vol] 0.9 10*3/uL Low 1.0-3.5 [facility] Comment on above: Performed By: #### 3 5365-6, 2283-8, CMP, THYR, 2132-04 #### [facility] ([id number]) [address], [address] [place] [address] Lymphocytes/100 WBC (Bld) 1.9 % Normal [facility] Comment on above: Performed By: #### 3 5365-6, 2284-03, CMP, THYR, 2132-04 #### [facility] ([id number]) [address], [address] [place] [address] MCH (RBC) [Entitic mass] 31.9 pg Normal 27-34 [facility] Comment on above: Performed By: #### 3 5365-6, 2283-8, CMP, THYR, 2132-04 #### [facility] ([id number]) [address], [address] [place] [address] MCHC (RBC) [Mass/Vol] 32.6 g/dL Normal 32-36 [facility] Comment on above: Performed By: #### 3 5365-6, 228-8, CMP, THYR, 2132-04 #### [facility] ([id number]) [address], [address] [place] [address] MCV (RBC) [Entitic vol] 98 fL Normal 80-100 [facility] Comment on above: Performed By: #### 3 5365-6, 2283-8, CMP, THYR, 2132-04 #### [facility] ([id number]) [address], [address] [place] [address] Monocytes (Bld) [#/Vol] 3.5 10*3/uL High 0-0.9 [facility] Comment on above: Performed By: #### 3 5365-6, 2283-8, CMP, THYR, 2132-04 #### [facility] ([id number]) [address] [place] [address] Monocytes/100 WBC (Bld) 29.0 % Normal [facility] Comment on above: Performed By: #### 3 5365-6, 2283-8, CMP, THYR, 2132-04 #### [facility] ([id number]) [address] [place] [address] MYELOCYTE 1.9 % Normal [facility] Comment on above: Performed By: #### 3 5365-6, 2283-8, CMP, THYR, 2132-04 #### [facility] ([id number]) [address], [address] [place] [address] Neutrophils (Bld) [#/Vol] 7.2 10*3/uL High 1.5-6.6 [facility] Comment on above: Performed By: #### 3 5365-6, 2283-8, CMP, THYR, 2132-04 #### [facility] ([id number]) [address], [address] [place] [address] NUCLEATED RBC 0.9 /100 WBC Normal 0.0-1.0 [facility] Comment on above: Performed By: #### 3 5365-6, 2284-8, CMP, THYR, 2132-04 #### [facility] ([id number]) [address], [address] [place] [address] Platelet mean volume (Bld) [Entitic vol] 7.8 fL Normal 7-12 [facility] Comment on above: Performed By: #### 3 5365-6, 228-8, CMP, THYR, 2132-04 #### [facility] ([id number]) [address], [facility] [address] [place] [address] Platelets (Bld) [#/Vol] 178 10*3/uL Normal 150-450 [facility] Comment on above: Performed By: #### 3 5365-6, 228-8, CMP, THYR, 2132-04 #### [facility] ([id number]) [address] [place] [address] RBC COUNT 3.32 X10E12/L Low 3.80-5.20 [facility] Comment on above: Performed By: #### 3 5365-6, 2283-8, CMP, THYR, 2132-04 #### [facility] ([id number]) [address], [address] [place] [address] RBC morphology finding Nom (Bld) NORMAL Normal [facility] Comment on above: Performed By: #### 3 5365-6, 228-8, CMP, THYR, 2132-04 #### [facility] ([id number]) [address], [address] [place] [address] SEG NEUTROPHIL 59.7 % Normal [facility] Comment on above: Performed By: #### 3 5365-6, 2284-8, CMP, THYR, 2132-04 #### [facility] ([id number]) [address], [address] [place] [address] WBC (Bld) [#/Vol] 12.1 10*3/uL High 4.0-11.0 [facility] Comment on above: Performed By: #### 3 5365-6, 2284-8, CMP, THYR, 2132-04 #### [facility] ([id number]) [address], [address] [place] [address] COMPREHENSIVE METABOLIC PANE Keenan 08-20-2023 Albumin [Mass/Vol] 1.9 g/dL Low 3.2-5.3 [facility] Comment on above: Performed By: #### 3 5365-6, 2283-8, CMP, THYR, 2132-04 #### [facility] ([id number]) [address], [address] [place] [address] ALP [Catalytic activity/Vol] 43 U/L Normal 39-130 [facility] Comment on above: Performed By: #### 3 5365-6, 2283-8, CMP, THYR, 2132-04 #### [facility] ([id number]) [address], [address] [place] [address] ALT [Catalytic activity/Vol] 9 U/L Normal 0-31 [facility] Comment on above: Performed By: #### 3 5365-6, 228-8, CMP, THYR, 2132-04 #### [facility] ([id number]) [address], [address] [place] [address] Anion gap [Moles/Vol] 7 mmol/L Normal 5-15 [facility] Comment on above: Performed By: #### 3 5365-6, 2284-8, CMP, THYR, 2132-04 #### [facility] ([id number]) [address], [address] [place] [address] AST [Catalytic activity/Vol] 13 U/L Normal 0-41 [facility] Comment on above: Performed By: #### 3 5365-6, 2283-8, CMP, THYR, 2132-04 #### [facility] ([id number]) [address], [address] [place] [address] Bilirubin [Mass/Vol] 0.5 mg/dL Normal 0.3-1.2 [facility] Comment on above: Performed By: #### 3 5365-6, 2283-8, CMP, THYR, 2132-04 #### [facility] ([id number]) [address], [address] [place] [address] Calcium [Mass/Vol] 8.0 mg/dL Low 8.5-10.5 [facility] Comment on above: Performed By: #### 3 5365-6, 2283-8, CMP, THYR, 2132-04 #### [facility] ([id number]) [address], [address] [place] [address] Chloride [Moles/Vol] 103 mmol/L Normal 98-109 [facility] Comment on above: Performed By: #### 3 5365-6, 2283-8, CMP, THYR, 2132-04 #### [facility] ([id number]) [address], [address] [place] [address] CO2 [Moles/Vol] 25 mmol/L Normal 22-32 [facility] Comment on above: Performed By: #### 3 5365-6, 2283-8, CMP, THYR, 2132-04 #### [facility] ([id number]) [address], [address] [place] [address] Creatinine [Mass/Vol] 1.27 mg/dL High 0.40-1.00 [facility] Comment on above: Result Comment: METH OD TRACEABLE TO IDMS STANDARD Performed By: #### 3 5365-6, 228-8, CMP, THYR, 2132-04 #### [facility] ([id number]) [address], [address] [place] [address] GFR/1.73 sq M.predicted among non-blacks MDRD (S/P/Bld) [Vol rate/Area] 45 mL/min/{1.73_m2} Low >59 [facility] Comment on above: Result Comment: Reported eGFR is based on the CKD-EPI 2020 equation that does not use a race coefficient. Performed By: #### 3 5365-6, 228-8, CMP, THYR, 2132-04 #### [facility] ([id number]) [address], [address] [place] [address] Glucose [Mass/Vol] 82 mg/dL Normal 65-99 [facility] Comment on above: Performed By: #### 3 5365-6, 8, CMP, THYR, 2132-04 #### [facility] ([id number]) [address], [address] [place] [address] Potassium [Moles/Vol] 4.2 mmol/L Normal 3.5-5.0 [facility] Comment on above: Performed By: #### 3 5365-6, 8, CMP, THYR, 2132-04 #### [facility] ([id number]) [address], [address] [place] [address] Protein [Mass/Vol] 5.8 g/dL Low 6.0-8.0 [facility] Comment on above: Performed By: #### 3 5365-6, 228-8, CMP, THYR, 2132-04 #### [facility] ([id number]) [address], [address] [place] [address] Sodium [Moles/Vol] 135 mmol/L Normal 134-146 [facility] Comment on above: Performed By: #### 3 5365-6, 228-8, CMP, THYR, 2132-04 #### [facility] ([id number]) [address] [address] [place] [address] Urea nitrogen [Mass/Vol] 20 mg/dL Normal 5-27 [facility] Comment on above: Performed By: #### 3 5365-6, 228-8, CMP, THYR, 2132-04 #### [facility] ([id number]) [address] [place] [address] MAGNESIUMon 08-20-2023 Magnesium [Mass/Vol] 2.1 mg/dL Normal 1.8-2.6 [facility] Comment on above: Performed By: #### 3 5365-6, 2283-8, CMP, THYR, 2132-04 #### [facility] ([id number]) [address] [address] [place] [address] CBC AND AUTO DIFFon 08-19-19 Erythrocyte distribution width (RBC) [Ratio] 14.5 % Normal 11.5-15.0 [facility] Comment on above: Performed By: #### 3 5365-6, 2283-8, CMP, THYR, 2132-04 #### [facility] ([id number]) [address] [address] [place] [address] Hematocrit (Bld) [Volume fraction] 31.2 % Low 35-47 [facility] Comment on above: Performed By: #### 3 5365-6, 2283-8, CMP, THYR, 2132-04 #### [facility] ([id number]) [address] [address] [place] [address] Hemoglobin (Bld) [Mass/Vol] 10.3 g/dL Low 11.7-15.5 [facility] Comment on above: Performed By: #### 3 5365-6, 2284-8, CMP, THYR, 2132-04 #### [facility] ([id number]) [address] [place] [address] Lymphocytes (Bld) [#/Vol] 1.4 10*3/uL Normal 1.0-3.5 [facility] Comment on above: Performed By: #### 3 5365-6, 2283-8, CMP, THYR, 2132-04 #### [facility] ([id number]) [address] [place] [address] Lymphocytes/100 WBC (Bld) 11.2 % Normal [facility] Comment on above: Performed By: #### 3 5365-6, 2283-8, CMP, THYR, 2132-04 #### [facility] ([id number]) [address] [place] [address] MCH (RBC) [Entitic mass] 32.1 pg Normal 27-34 [facility] Comment on above: Performed By: #### 3 5365-6, 2283-8, CMP, THYR, 2132-04 #### [facility] ([id number]) [address] [place] [address] MCHC (RBC) [Mass/Vol] 33.0 g/dL Normal 32-36 [facility] Comment on above: Performed By: #### 3 5365-6, 8, CMP, THYR, 2132-04 #### [facility] ([id number]) [address] [place] [address] MCV (RBC) [Entitic vol] 97 fL Normal 80-100 [facility] Comment on above: Performed By: #### 3 5365-6, 2283-8, CMP, THYR, 2132-04 #### [facility] ([id number]) [address] [place] [address] Metamyelocytes/100 WBC (Bld) 0.9 % Normal [facility] Comment on above: Performed By: #### 3 5365-6, 2283-8, CMP, THYR, 2132-04 #### [facility] ([id number]) [address] [place] [address] Monocytes (Bld) [#/Vol] 4.6 10*3/uL High 0-0.9 [facility] Comment on above: Performed By: #### 3 5365-6, 228-8, CMP, THYR, 2132-04 #### [facility] ([id number]) [address] [place] [address] Monocytes/100 WBC (Bld) 37.4 % Normal [facility] Comment on above: Performed By: #### 3 5365-6, 2283-8, CMP, THYR, 2132-04 #### [facility] ([id number]) [address], [address] [place] [address] MYELOCYTE 1.9 % Normal [facility] Comment on above: Performed By: #### 3 5365-6, 2283-8, CMP, THYR, 2132-04 #### [facility] ([id number]) [address] [place] [address] Neutrophils (Bld) [#/Vol] 6.0 10*3/uL Normal 1.5-6.6 [facility] Comment on above: Performed By: #### 3 5365-6, 2283-8, CMP, THYR, 2132-04 #### [facility] ([id number]) [address] [place] [address] Platelet mean volume (Bld) [Entitic vol] 7.7 fL Normal 7-12 [facility] Comment on above: Performed By: #### 3 5365-6, 228-8, CMP, THYR, 2132-04 #### [facility] ([id number]) [address], [address] [place] [address] Platelets (Bld) [#/Vol] 169 10*3/uL Normal 150-450 [facility] Comment on above: Performed By: #### 3 5365-6, 2284-8, CMP, THYR, 2132-04 #### [facility] ([id number]) [address] [place] [address] RBC COUNT 3.21 X10E12/L Low 3.80-5.20 [facility] Comment on above: Performed By: #### 3 5365-6, 228-8, CMP, THYR, 2132-04 #### [facility] ([id number]) [address] [place] [address] RBC morphology finding Nom (Bld) NORMAL Normal [facility] Comment on above: Performed By: #### 3 5365-6, 2283-8, CMP, THYR, 2132-04 #### [facility] ([id number]) [address] [place] [address] SEG NEUTROPHIL 48.6 % Normal [facility] Comment on above: Performed By: #### 3 5365-6, 2283-8, CMP, THYR, 2132-04 #### [facility] ([id number]) [address] [place] [address] WBC (Bld) [#/Vol] 12.3 10*3/uL High 4.0-11.0 [facility] Comment on above: Performed By: #### 3 5365-6, 228-8, CMP, THYR, 2132-04 #### [facility] ([id number]) [address] [place] [address] COMPREHENSIVE METABOLIC PANE Keenan 08-19-2023 Albumin [Mass/Vol] 1.9 g/dL Low 3.2-5.3 [facility] Comment on above: Performed By: #### 3 5365-6, 228-8, CMP, THYR, 2132-04 #### [facility] ([id number]) [address] [place] [address] ALP [Catalytic activity/Vol] 38 U/L Low 39-130 [facility] Comment on above: Performed By: #### 3 5365-6, 2284-8, CMP, THYR, 2132-04 #### [facility] ([id number]) [address] [place] [address] ALT [Catalytic activity/Vol] 8 U/L Normal 0-31 [facility] Comment on above: Performed By: #### 3 5365-6, 228-8, CMP, THYR, 2132-04 #### [facility] ([id number]) [address] [place] [address] Anion gap [Moles/Vol] 6 mmol/L Normal 5-15 [facility] Comment on above: Performed By: #### 3 5365-6, 228-8, CMP, THYR, 2132-04 #### [facility] ([id number]) [address] [place] [address] AST [Catalytic activity/Vol] 12 U/L Normal 0-41 [facility] Comment on above: Performed By: #### 3 5365-6, 228-8, CMP, THYR, 2132-04 #### [facility] ([id number]) [address] [place] [address] Bilirubin [Mass/Vol] 0.4 mg/dL Normal 0.3-1.2 [facility] Comment on above: Performed By: #### 3 5365-6, 2284-8, CMP, THYR, 2132-04 #### [facility] ([id number]) [address] [place] [address] Calcium [Mass/Vol] 7.8 mg/dL Low 8.5-10.5 [facility] Comment on above: Performed By: #### 3 5365-6, 2283-8, CMP, THYR, 2132-04 #### [facility] ([id number]) [address] [place] [address] Chloride [Moles/Vol] 103 mmol/L Normal 98-109 [facility] Comment on above: Performed By: #### 3 5365-6, 2283-8, CMP, THYR, 2132-04 #### [facility] ([id number]) [address] [place] [address] CO2 [Moles/Vol] 25 mmol/L Normal 22-32 [facility] Comment on above: Performed By: #### 3 5365-6, 2283-8, CMP, THYR, 2132-04 #### [facility] ([id number]) [address] [place] [address] Creatinine [Mass/Vol] 1.40 mg/dL High 0.40-1.00 [facility] Comment on above: Result Comment: METH OD TRACEABLE TO IDMS STANDARD Performed By: #### 3 5365-6, 8, CMP, THYR, 2132-04 #### [facility] ([id number]) [address] [place] [address] GFR/1.73 sq M.predicted among non-blacks MDRD (S/P/Bld) [Vol rate/Area] 40 mL/min/{1.73_m2} Low >59 [facility] Comment on above: Result Comment: Reported eGFR is based on the CKD-EPI 2020 equation that does not use a race coefficient. Performed By: #### 3 5365-6, 228-8, CMP, THYR, 2132-04 #### [facility] ([id number]) [address] [place] [address] Glucose [Mass/Vol] 93 mg/dL Normal 65-99 [facility] Comment on above: Performed By: #### 3 5365-6, 228-8, CMP, THYR, 2132-04 #### [facility] ([id number]) [address] [place], [place] [address] Potassium [Moles/Vol] 4.1 mmol/L Normal 3.5-5.0 [facility] Comment on above: Performed By: #### 3 5365-6, 228-8, CMP, THYR, 2132-04 #### [facility] ([id number]) [address], [address] [place] [address] Protein [Mass/Vol] 5.7 g/dL Low 6.0-8.0 [facility] Comment on above: Performed By: #### 3 5365-6, 2283-8, CMP, THYR, 2132-04 #### [facility] ([id number]) [address], [address] [place], [place] [address] Sodium [Moles/Vol] 134 mmol/L Normal 134-146 [facility] Comment on above: Performed By: #### 3 5365-6, 2283-8, CMP, THYR, 2132-04 #### [facility] ([id number]) [address], [address] [place] [address] Urea nitrogen [Mass/Vol] 20 mg/dL Normal 5-27 [facility] Comment on above: Performed By: #### 3 5365-6, 228-8, CMP, THYR, 2132-04 #### [facility] ([id number]) [address], [address] [place] [address] MAGNESIUMon 08-19-2023 Magnesium [Mass/Vol] 2.4 mg/dL Normal 1.8-2.6 [facility] Comment on above: Performed By: #### 3 5365-6, 228-8, CMP, THYR, 2132-04 #### [facility] ([id number]) [address], [address] [place] [address] Magnesium [Mass/Vol] 1.9 mg/dL Normal 1.8-2.6 [facility] Comment on above: Performed By: #### 3 5365-6, 2284-8, CMP, THYR, 2132-04 #### [facility] ([id number]) [address], [address] [place] [address] Valproate Free [Mass/Vol]on 08-19-2023 VALPROIC ACID FREE 22.9 ug/mL Normal 4.0-30.0 [facility] Comment on above: Result Comment: NOTE Reference ranges and high/low indicator flags are provided as general guidelines only. The treating physician must determine appropriate target levels/dosing based on the specific clinical situation. This test was developed and its performance characteristics determined by [facility] [place] ([facility]). It has not been cleared or approved by the FDA. [facility] is regulated under CLIA as qualified to perform high-complexity testing. This test is used for clinical purposes. It should not be regarded as investigational or for research. Test Performed By: [facility] [address] [place] [address] Able Bodied Seaman: Casey Pineda III, M.D. CLIA #[id number] Performed By: #### 3 5365-6, 2284-8, CMP, THYR, 2132-04 #### [facility] ([id number]) [address], [address] [place] [address] CBC AND AUTO DIFFon 08-18-19 24 Band form neutrophils/100 WBC (Bld) 7.6 % Normal [facility] Comment on above: Performed By: #### 3 5365-6, 228-8, CMP, THYR, 2132-04 #### [facility] ([id number]) [address], [address] [place] [address] Erythrocyte distribution width (RBC) [Ratio] 14.3 % Normal 11.5-15.0 [facility] Comment on above: Performed By: #### 3 5365-6, 2283-8, CMP, THYR, 2132-04 #### [facility] ([id number]) [address], [address] [place] [address] Hematocrit (Bld) [Volume fraction] 30.7 % Low 35-47 [facility] Comment on above: Performed By: #### 3 5365-6, 8, CMP, THYR, 2132-04 #### [facility] ([id number]) [address] [address] [place] [address] Hemoglobin (Bld) [Mass/Vol] 10.1 g/dL Low 11.7-15.5 [facility] Comment on above: Performed By: #### 3 5365-6, 2284-03, CMP, THYR, 2132-04 #### [facility] ([id number]) [address], [address] [place] [address] Lymphocytes (Bld) [#/Vol] 1.0 10*3/uL Normal 1.0-3.5 [facility] Comment on above: Performed By: #### 3 5365-6, 2284-03, CMP, THYR, 2132-04 #### [facility] ([id number]) [address], [facility] [address] [place] [address] Lymphocytes/100 WBC (Bld) 8.6 % Normal [facility] Comment on above: Performed By: #### 3 5365-6, 8, CMP, THYR, 2132-04 #### [facility] ([id number]) [address] [place] [address] MCH (RBC) [Entitic mass] 32.0 pg Normal 27-34 [facility] Comment on above: Performed By: #### 3 5365-6, 8, CMP, THYR, 2132-04 #### [facility] ([id number]) [address], [address] [place] [address] MCHC (RBC) [Mass/Vol] 32.9 g/dL Normal 32-36 [facility] Comment on above: Performed By: #### 3 5365-6, 228-8, CMP, THYR, 2132-04 #### [facility] ([id number]) [address], [address] [place] [address] MCV (RBC) [Entitic vol] 97 fL Normal 80-100 [facility] Comment on above: Performed By: #### 3 5365-6, 2283-8, CMP, THYR, 2132-04 #### [facility] ([id number]) [address], [address] [place] [address] Metamyelocytes/100 WBC (Bld) 1.0 % Normal [facility] Comment on above: Performed By: #### 3 5365-6, 2283-8, CMP, THYR, 2132-04 #### [facility] ([id number]) [address], [address] [place] [address] Monocytes (Bld) [#/Vol] 2.6 10*3/uL High 0-0.9 [facility] Comment on above: Performed By: #### 3 5365-6, 2283-8, CMP, THYR, 2132-04 #### [facility] ([id number]) [address], [address] [place] [address] Monocytes/100 WBC (Bld) 22.9 % Normal [facility] Comment on above: Performed By: #### 3 5365-6, 228-8, CMP, THYR, 2132-04 #### [facility] ([id number]) [address], [address] [place] [address] MYELOCYTE 2.9 % Normal [facility] Comment on above: Performed By: #### 3 5365-6, 2284-8, CMP, THYR, 2132-04 #### [facility] ([id number]) [address] [address] [place] [address] Neutrophils (Bld) [#/Vol] 7.4 10*3/uL High 1.5-6.6 [facility] Comment on above: Performed By: #### 3 5365-6, 228-8, CMP, THYR, 2132-04 #### [facility] ([id number]) [address], [facility] [address] [place] [address] Platelet mean volume (Bld) [Entitic vol] 7.8 fL Normal 7-12 [facility] Comment on above: Performed By: #### 3 5365-6, 228-8, CMP, THYR, 2132-04 #### [facility] ([id number]) [address] [address] [place] [address] Platelets (Bld) [#/Vol] 178 10*3/uL Normal 150-450 [facility] Comment on above: Performed By: #### 3 5365-6, 228-8, CMP, THYR, 2132-04 #### [facility] ([id number]) [address] [place] [address] RBC COUNT 3.16 X10E12/L Low 3.80-5.20 [facility] Comment on above: Performed By: #### 3 5365-6, 228-8, CMP, THYR, 2132-04 #### [facility] ([id number]) [address] [place] [address] RBC morphology finding Nom (Bld) NORMAL Normal [facility] Comment on above: Performed By: #### 3 5365-6, 2284-8, CMP, THYR, 9 #### [facility] ([id number]) [address] [address] [place] [address] SEG NEUTROPHIL 57.0 % Normal [facility] Comment on above: Performed By: #### 3 5365-6, 2283-8, CMP, THYR, 2132-04 #### [facility] ([id number]) [address], [address] [place] [address] TOXIC GRANULATION 1+ Abnormal NONE [facility] Comment on above: Performed By: #### 3 5365-6, 2283-8, CMP, THYR, 2132-04 #### [facility] ([id number]) [address], [address] [place] [address] WBC (Bld) [#/Vol] 11.4 10*3/uL High 4.0-11.0 [facility] Comment on above: Performed By: #### 3 5365-6, 2283-8, CMP, THYR, 2132-04 #### [facility] ([id number]) [address], [address] [place] [address] COMPREHENSIVE METABOLIC PANE Keenan 08-18-2023 Albumin [Mass/Vol] 1.9 g/dL Low 3.2-5.3 [facility] Comment on above: Performed By: #### 3 5365-6, 8, CMP, THYR, 2132-04 #### [facility] ([id number]) [address], [address] [place] [address] ALP [Catalytic activity/Vol] 35 U/L Low 39-130 [facility] Comment on above: Performed By: #### 3 5365-6, 2283-8, CMP, THYR, 2132-04 #### [facility] ([id number]) [address], [address] [place] [address] ALT [Catalytic activity/Vol] 9 U/L Normal 0-31 [facility] Comment on above: Performed By: #### 3 5365-6, 228-8, CMP, THYR, 2132-04 #### [facility] ([id number]) [address], [address] [place] [address] Anion gap [Moles/Vol] 7 mmol/L Normal 5-15 [facility] Comment on above: Performed By: #### 3 5365-6, 2283-8, CMP, THYR, 2132-04 #### [facility] ([id number]) [address], [address] [place] [address] AST [Catalytic activity/Vol] 12 U/L Normal 0-41 [facility] Comment on above: Performed By: #### 3 5365-6, 8, CMP, THYR, 2132-04 #### [facility] ([id number]) [address], [address] [place] [address] Bilirubin [Mass/Vol] 0.4 mg/dL Normal 0.3-1.2 [facility] Comment on above: Performed By: #### 3 5365-6, 8, CMP, THYR, 2132-04 #### [facility] ([id number]) [address] [place] [address] Calcium [Mass/Vol] 7.8 mg/dL Low 8.5-10.5 [facility] Comment on above: Performed By: #### 3 5365-6, 8, CMP, THYR, 2132-04 #### [facility] ([id number]) [address], [address] [place] [address] Chloride [Moles/Vol] 102 mmol/L Normal 98-109 [facility] Comment on above: Performed By: #### 3 5365-6, 2283-8, CMP, THYR, 2132-04 #### [facility] ([id number]) [address], [address] [place] [address] CO2 [Moles/Vol] 24 mmol/L Normal 22-32 [facility] Comment on above: Performed By: #### 3 5365-6, 8, CMP, THYR, 2132-04 #### [facility] ([id number]) [address], [address] [place] [address] Creatinine [Mass/Vol] 1.48 mg/dL High 0.40-1.00 [facility] Comment on above: Result Comment: METH OD TRACEABLE TO IDMS STANDARD Performed By: #### 3 5365-6, 8, CMP, THYR, 2132-04 #### [facility] ([id number]) [address], [facility] [address] [place] [address] GFR/1.73 sq M.predicted among non-blacks MDRD (S/P/Bld) [Vol rate/Area] 37 mL/min/{1.73_m2} Low >59 [facility] Comment on above: Result Comment: Reported eGFR is based on the CKD-EPI 2020 equation that does not use a race coefficient. Performed By: #### 3 5365-6, 8, CMP, THYR, 2132-04 #### [facility] ([id number]) [address], [address] [place] [address] Glucose [Mass/Vol] 92 mg/dL Normal 65-99 [facility] Comment on above: Performed By: #### 3 5365-6, 8, CMP, THYR, 2132-04 #### [facility] ([id number]) [address], [address] [place] [address] Potassium [Moles/Vol] 3.8 mmol/L Normal 3.5-5.0 [facility] Comment on above: Performed By: #### 3 5365-6, 228-8, CMP, THYR, 2132-04 #### [facility] ([id number]) [address], [address] [place] [address] Protein [Mass/Vol] 5.5 g/dL Low 6.0-8.0 [facility] Comment on above: Performed By: #### 3 5365-6, 2284-8, CMP, THYR, 9 #### [facility] ([id number]) [address] [place] [address] Sodium [Moles/Vol] 133 mmol/L Low 134-146 [facility] Comment on above: Performed By: #### 3 5365-6, 2284-8, CMP, THYR, 9 #### [facility] ([id number]) [address] [place] [address] Urea nitrogen [Mass/Vol] 19 mg/dL Normal 5-27 [facility] Comment on above: Performed By: #### 3 5365-6, 2284-8, CMP, THYR, 2131-9 #### [facility] ([id number]) [address], [address] [place] [address] CT BRAIN WO CONTon CT BRAIN WO CONT CT BRAIN WO CONT Examination: Noncontrast brain CT Date of Exam:08/18/2023 Clinical History:Memory loss Comparison:08/13/2023 Procedure: Multi-detector CT performed through the brain without IV contrast. Automatic exposure control (AEC) was utilized. Findings: There is no intracranial hemorrhage, extra-axial fluid collection, mass effect, or hydrocephalus. Barr-white matter differentiation is appropriate. Infarcts may be occult on CT, but grossly no acute infarct identified There is no midline shift. Chronic White matter changes again noted. IMPRESSION: 1. No acute findings. All CT scans at this facility use dose modulation, iterative reconstruction, and/or weight based dosing when appropriate to reduce radiation dose to as low as reasonably achievable. Finalized by Edmond Hernandez MD on 08/18/2023 11:00 AM Normal [facility] MAGNESIUMon 08-18-2023 Magnesium [Mass/Vol] 2.1 mg/dL Normal 1.8-2.6 [facility] Comment on above: Performed By: #### 3 5365-6, 2284-8, CMP, THYR, 2132-04 #### [facility] ([id number]) [address], [address] [place] [address] POTASSIUMon 08-18-2023 Potassium [Moles/Vol] 4.1 mmol/L Normal 3.5-5.0 [facility] Comment on above: Performed By: #### 3 5365-6, 2283-8, CMP, THYR, 2132-04 #### [facility] ([id number]) [address], [facility] [address] [place] [address] CBC AND AUTO DIFFon 08-17-19 24 Band form neutrophils/100 WBC (Bld) 2.8 % Normal [facility] Comment on above: Performed By: #### 3 5365-6, 2283-8, CMP, THYR, 2132-04 #### [facility] ([id number]) [address] [place] [address] Erythrocyte distribution width (RBC) [Ratio] 14.4 % Normal 11.5-15.0 [facility] Comment on above: Performed By: #### 3 5365-6, 228-8, CMP, THYR, 2132-04 #### [facility] ([id number]) [address], [address] [place] [address] Hematocrit (Bld) [Volume fraction] 31.6 % Low 35-47 [facility] Comment on above: Performed By: #### 3 5365-6, 228-8, CMP, THYR, 2132-04 #### [facility] ([id number]) [address], [facility] [address] [place] [address] Hemoglobin (Bld) [Mass/Vol] 10.5 g/dL Low 11.7-15.5 [facility] Comment on above: Performed By: #### 3 5365-6, 2284-03, CMP, THYR, 2132-04 #### [facility] ([id number]) [address], [address] [place] [address] Lymphocytes (Bld) [#/Vol] 1.0 10*3/uL Normal 1.0-3.5 [facility] Comment on above: Performed By: #### 3 5365-6, 2284-03, CMP, THYR, 2132-04 #### [facility] ([id number]) [address], [facility] [address] [place] [address] Lymphocytes/100 WBC (Bld) 8.5 % Normal [facility] Comment on above: Performed By: #### 3 5365-6, 2284-03, CMP, THYR, 2132-04 #### [facility] ([id number]) [address], [address] [place] [address] MCH (RBC) [Entitic mass] 32.2 pg Normal 27-34 [facility] Comment on above: Performed By: #### 3 5365-6, 2284-03, CMP, THYR, 2132-04 #### [facility] ([id number]) [address] [place] [address] MCHC (RBC) [Mass/Vol] 33.1 g/dL Normal 32-36 [facility] Comment on above: Performed By: #### 3 5365-6, 2284-03, CMP, THYR, 2132-04 #### [facility] ([id number]) [address] [address] [place] [address] MCV (RBC) [Entitic vol] 97 fL Normal 80-100 [facility] Comment on above: Performed By: #### 3 5365-6, 2284-03, CMP, THYR, 2132-04 #### [facility] ([id number]) [address] [place] [address] Metamyelocytes/100 WBC (Bld) 1.9 % Normal [facility] Comment on above: Performed By: #### 3 5365-6, 228-8, CMP, THYR, 2132-04 #### [facility] ([id number]) [address], [address] [place] [address] Monocytes (Bld) [#/Vol] 2.8 10*3/uL High 0-0.9 [facility] Comment on above: Performed By: #### 3 5365-6, 228-8, CMP, THYR, 2132-04 #### [facility] ([id number]) [address] [place] [address] Monocytes/100 WBC (Bld) 23.6 % Normal [facility] Comment on above: Performed By: #### 3 5365-6, 2283-8, CMP, THYR, 2132-04 #### [facility] ([id number]) [address] [place] [address] MYELOCYTE 2.8 % Normal [facility] Comment on above: Performed By: #### 3 5365-6, 2283-8, CMP, THYR, 2132-04 #### [facility] ([id number]) [address] [place] [address] Neutrophils (Bld) [#/Vol] 7.5 10*3/uL High 1.5-6.6 [facility] Comment on above: Performed By: #### 3 5365-6, 228-8, CMP, THYR, 2132-04 #### [facility] ([id number]) [address] [place] [address] Platelet mean volume (Bld) [Entitic vol] 8.0 fL Normal 7-12 [facility] Comment on above: Performed By: #### 3 5365-6, 2284-8, CMP, THYR, 2132-04 #### [facility] ([id number]) [address] [place] [address] Platelets (Bld) [#/Vol] 181 10*3/uL Normal 150-450 [facility] Comment on above: Performed By: #### 3 5365-6, 2284-8, CMP, THYR, 2132-04 #### [facility] ([id number]) [address] [place] [address] RBC COUNT 3.25 X10E12/L Low 3.80-5.20 [facility] Comment on above: Performed By: #### 3 5365-6, 228-8, CMP, THYR, 2132-04 #### [facility] ([id number]) [address] [place] [address] RBC morphology finding Nom (Bld) NORMAL Normal [facility] Comment on above: Performed By: #### 3 5365-6, 2284-8, CMP, THYR, 2132-04 #### [facility] ([id number]) [address] [place] [address] SEG NEUTROPHIL 60.4 % Normal [facility] Comment on above: Performed By: #### 3 5365-6, 228-8, CMP, THYR, 2132-04 #### [facility] ([id number]) [address] [place] [address] TOXIC GRANULATION 1+ Abnormal NONE [facility] Comment on above: Performed By: #### 3 5365-6, 228-8, CMP, THYR, 2132-04 #### [facility] ([id number]) [address] [place] [address] WBC (Bld) [#/Vol] 12.0 10*3/uL High 4.0-11.0 [facility] Comment on above: Performed By: #### 3 5365-6, 2284-8, CMP, THYR, 2132-04 #### [facility] ([id number]) [address] [place] [address] COMPREHENSIVE METABOLIC PANE Keenan 08-17-2023 Albumin [Mass/Vol] 2.0 g/dL Low 3.2-5.3 [facility] Comment on above: Performed By: #### 3 5365-6, 2284-8, CMP, THYR, 2132-04 #### [facility] ([id number]) [address] [place] [address] ALP [Catalytic activity/Vol] 38 U/L Low 39-130 [facility] Comment on above: Performed By: #### 3 5365-6, 228-8, CMP, THYR, 2132-04 #### [facility] ([id number]) [address] [place] [address] ALT [Catalytic activity/Vol] 11 U/L Normal 0-31 [facility] Comment on above: Performed By: #### 3 5365-6, 228-8, CMP, THYR, 2132-04 #### [facility] ([id number]) [address] [place] [address] Anion gap [Moles/Vol] 4 mmol/L Low 5-15 [facility] Comment on above: Performed By: #### 3 5365-6, 228-8, CMP, THYR, 2132-04 #### [facility] ([id number]) [address] [place] [address] AST [Catalytic activity/Vol] 14 U/L Normal 0-41 [facility] Comment on above: Performed By: #### 3 5365-6, 2284-8, CMP, THYR, 2132-04 #### [facility] ([id number]) [address] [place] [address] Bilirubin [Mass/Vol] 0.4 mg/dL Normal 0.3-1.2 [facility] Comment on above: Performed By: #### 3 5365-6, 2283-8, CMP, THYR, 2132-04 #### [facility] ([id number]) [address], [facility] [address] [place] [address] Calcium [Mass/Vol] 7.8 mg/dL Low 8.5-10.5 [facility] Comment on above: Performed By: #### 3 5365-6, 2283-8, CMP, THYR, 2132-04 #### [facility] ([id number]) [address] [place] [address] Chloride [Moles/Vol] 104 mmol/L Normal 98-109 [facility] Comment on above: Performed By: #### 3 5365-6, 8, CMP, THYR, 2132-04 #### [facility] ([id number]) [address] [place] [address] CO2 [Moles/Vol] 26 mmol/L Normal 22-32 [facility] Comment on above: Performed By: #### 3 5365-6, 2284-03, CMP, THYR, 2132-04 #### [facility] ([id number]) [address] [place] [address] Creatinine [Mass/Vol] 1.51 mg/dL High 0.40-1.00 [facility] Comment on above: Result Comment: METH OD TRACEABLE TO IDMS STANDARD Performed By: #### 3 5365-6, 2283-8, CMP, THYR, 2132-04 #### [facility] ([id number]) [address] [place] [address] GFR/1.73 sq M.predicted among non-blacks MDRD (S/P/Bld) [Vol rate/Area] 36 mL/min/{1.73_m2} Low >59 [facility] Comment on above: Result Comment: Reported eGFR is based on the CKD-EPI 2020 equation that does not use a race coefficient. Performed By: #### 3 5365-6, 2283-8, CMP, THYR, 2132-04 #### [facility] ([id number]) [address] [place] [address] Glucose [Mass/Vol] 88 mg/dL Normal 65-99 [facility] Comment on above: Performed By: #### 3 5365-6, 2283-8, CMP, THYR, 2132-04 #### [facility] ([id number]) [address] [place] [address] Potassium [Moles/Vol] 3.9 mmol/L Normal 3.5-5.0 [facility] Comment on above: Performed By: #### 3 5365-6, 8, CMP, THYR, 2132-04 #### [facility] ([id number]) [address] [place] [address] Protein [Mass/Vol] 5.8 g/dL Low 6.0-8.0 [facility] Comment on above: Performed By: #### 3 5365-6, 8, CMP, THYR, 2132-04 #### [facility] ([id number]) [address] [place] [address] Sodium [Moles/Vol] 134 mmol/L Normal 134-146 [facility] Comment on above: Performed By: #### 3 5365-6, 2283-8, CMP, THYR, 2132-04 #### [facility] ([id number]) [address] [place] [address] Urea nitrogen [Mass/Vol] 18 mg/dL Normal 5-27 [facility] Comment on above: Performed By: #### 3 5365-6, 2284-8, CMP, THYR, 2132-04 #### [facility] ([id number]) [address] [place] [address] MAGNESIUMon 08-17-2023 Magnesium [Mass/Vol] 2.3 mg/dL Normal 1.8-2.6 [facility] Comment on above: Performed By: #### 3 5365-6, 2283-8, CMP, THYR, 2132-04 #### [facility] ([id number]) [address] [facility] [address] [place] [address] CBC AND AUTO DIFFon 08-16-19 24 Band form neutrophils/100 WBC (Bld) 2.9 % Normal [facility] Comment on above: Performed By: #### 3 5365-6, 2283-8, CMP, THYR, 2132-04 #### [facility] ([id number]) [address] [facility] [address] [place] [address] Erythrocyte distribution width (RBC) [Ratio] 14.7 % Normal 11.5-15.0 [facility] Comment on above: Performed By: #### 3 5365-6, 2283-8, CMP, THYR, 2132-04 #### [facility] ([id number]) [address] [address] [place] [address] Hematocrit (Bld) [Volume fraction] 33.2 % Low 35-47 [facility] Comment on above: Performed By: #### 3 5365-6, 2283-8, CMP, THYR, 2132-04 #### [facility] ([id number]) [address] [place] [address] Hemoglobin (Bld) [Mass/Vol] 11.0 g/dL Low 11.7-15.5 [facility] Comment on above: Performed By: #### 3 5365-6, 2283-8, CMP, THYR, 2132-9 #### [facility] ([id number]) [address] [place] [address] Lymphocytes (Bld) [#/Vol] 1.2 10*3/uL Normal 1.0-3.5 [facility] Comment on above: Performed By: #### 3 5365-6, 2283-8, CMP, THYR, 2132-04 #### [facility] ([id number]) [address], [address] [place] [address] Lymphocytes/100 WBC (Bld) 9.5 % Normal [facility] Comment on above: Performed By: #### 3 5365-6, 2283-8, CMP, THYR, 2132-04 #### [facility] ([id number]) [address] [place] [address] MCH (RBC) [Entitic mass] 32.3 pg Normal 27-34 [facility] Comment on above: Performed By: #### 3 5365-6, 2284-03, CMP, THYR, 2132-04 #### [facility] ([id number]) [address] [place] [address] MCHC (RBC) [Mass/Vol] 33.1 g/dL Normal 32-36 [facility] Comment on above: Performed By: #### 3 5365-6, 8, CMP, THYR, 2132-04 #### [facility] ([id number]) [address] [place] [address] MCV (RBC) [Entitic vol] 98 fL Normal 80-100 [facility] Comment on above: Performed By: #### 3 5365-6, 2283-8, CMP, THYR, 2132-04 #### [facility] ([id number]) [address] [place] [address] Metamyelocytes/100 WBC (Bld) 1.9 % Normal [facility] Comment on above: Performed By: #### 3 5365-6, 2284-8, CMP, THYR, 2132-04 #### [facility] ([id number]) [address] [place] [address] Monocytes (Bld) [#/Vol] 2.0 10*3/uL High 0-0.9 [facility] Comment on above: Performed By: #### 3 5365-6, 228-8, CMP, THYR, 2132-04 #### [facility] ([id number]) [address] [place] [address] Monocytes/100 WBC (Bld) 15.2 % Normal [facility] Comment on above: Performed By: #### 3 5365-6, 2283-8, CMP, THYR, 2132-04 #### [facility] ([id number]) [address] [place] [address] MYELOCYTE 1.0 % Normal [facility] Comment on above: Performed By: #### 3 5365-6, 2283-8, CMP, THYR, 2132-04 #### [facility] ([id number]) [address] [place] [address] Neutrophils (Bld) [#/Vol] 9.4 10*3/uL High 1.5-6.6 [facility] [facility] Comment on above: Performed By: #### 3 5365-6, 228-8, CMP, THYR, 2132-04 #### [facility] ([id number]) [address], [address] [place] [address] Platelet mean volume (Bld) [Entitic vol] 8.1 fL Normal 7-12 [facility] Comment on above: Performed By: #### 3 5365-6, 2284-8, CMP, THYR, 2132-04 #### [facility] ([id number]) [address], [address] [place] [address] Platelets (Bld) [#/Vol] 190 10*3/uL Normal 150-450 [facility] Comment on above: Performed By: #### 3 5365-6, 2284-8, CMP, THYR, 2132-04 #### [facility] ([id number]) [address], [address] [place] [address] RBC COUNT 3.40 X10E12/L Low 3.80-5.20 [facility] Comment on above: Performed By: #### 3 5365-6, 2284-8, CMP, THYR, 2132-04 #### [facility] ([id number]) [address], [address] [place] [address] RBC morphology finding Nom (Bld) NORMAL Normal [facility] Comment on above: Performed By: #### 3 5365-6, 2284-8, CMP, THYR, 2132-04 #### [facility] ([id number]) [address], [address] [place] [address] SEG NEUTROPHIL 69.5 % Normal [facility] Comment on above: Performed By: #### 3 5365-6, 228-8, CMP, THYR, 2132-04 #### [facility] ([id number]) [address], [address] [place] [address] WBC (Bld) [#/Vol] 12.9 10*3/uL High 4.0-11.0 [facility] Comment on above: Performed By: #### 3 5365-6, 2284-8, CMP, THYR, 2132-04 #### [facility] ([id number]) [address], [address] [place] [address] COMPREHENSIVE METABOLIC PANE Keenan 08-16-2023 Albumin [Mass/Vol] 2.0 g/dL Low 3.2-5.3 [facility] Comment on above: Performed By: #### 3 5365-6, 2284-8, CMP, THYR, 2132-04 #### [facility] ([id number]) [address], [address] [place], [place] [address] ALP [Catalytic activity/Vol] 40 U/L Normal 39-130 [facility] Comment on above: Performed By: #### 3 5365-6, 2284-8, CMP, THYR, 2132-04 #### [facility] ([id number]) [address], [address] [place] [address] ALT [Catalytic activity/Vol] 8 U/L Normal 0-31 [facility] Comment on above: Performed By: #### 3 5365-6, 2284-8, CMP, THYR, 2132-04 #### [facility] ([id number]) [address], [address] [place] [address] Anion gap [Moles/Vol] 7 mmol/L Normal 5-15 [facility] Comment on above: Performed By: #### 3 5365-6, 228-8, CMP, THYR, 2132-04 #### [facility] ([id number]) [address], [address] [place] [address] AST [Catalytic activity/Vol] 15 U/L Normal 0-41 [facility] Comment on above: Performed By: #### 3 5365-6, 2284-8, CMP, THYR, 2132-04 #### [facility] ([id number]) [address], [address] [place] [address] Bilirubin [Mass/Vol] 0.4 mg/dL Normal 0.3-1.2 [facility] Comment on above: Performed By: #### 3 5365-6, 2284-8, CMP, THYR, 2132-04 #### [facility] ([id number]) [address], [address] [place] [address] Calcium [Mass/Vol] 7.9 mg/dL Low 8.5-10.5 [facility] Comment on above: Performed By: #### 3 5365-6, 228-8, CMP, THYR, 2132-04 #### [facility] ([id number]) [address], [facility] [address] [place] [address] Chloride [Moles/Vol] 104 mmol/L Normal 98-109 [facility] Comment on above: Performed By: #### 3 5365-6, 228-8, CMP, THYR, 2132-04 #### [facility] ([id number]) [address], [facility] [address] [place] [address] CO2 [Moles/Vol] 23 mmol/L Normal 22-32 [facility] Comment on above: Performed By: #### 3 5365-6, 2283-8, CMP, THYR, 2132-04 #### [facility] ([id number]) [address], [facility] [address] [place] [address] Creatinine [Mass/Vol] 1.37 mg/dL High 0.40-1.00 [facility] Comment on above: Result Comment: METH OD TRACEABLE TO IDMS STANDARD Performed By: #### 3 5365-6, 228-8, CMP, THYR, 9 #### [facility] ([id number]) [address], [facility] [address] [place] [address] GFR/1.73 sq M.predicted among non-blacks MDRD (S/P/Bld) [Vol rate/Area] 41 mL/min/{1.73_m2} Low >59 [facility] Comment on above: Result Comment: Reported eGFR is based on the CKD-EPI 2020 equation that does not use a race coefficient. Performed By: #### 3 5365-6, 2284-8, CMP, THYR, 9 #### [facility] ([id number]) [address], [address] [place] [address] Glucose [Mass/Vol] 96 mg/dL Normal 65-99 [facility] Comment on above: Performed By: #### 3 5365-6, 2283-8, CMP, THYR, 2132-04 #### [facility] ([id number]) [address], [address] [place] [address] Potassium [Moles/Vol] 4.0 mmol/L Normal 3.5-5.0 [facility] Comment on above: Performed By: #### 3 5365-6, 2283-8, CMP, THYR, 2132-04 #### [facility] ([id number]) [address], [address] [place] [address] Protein [Mass/Vol] 5.8 g/dL Low 6.0-8.0 [facility] Comment on above: Performed By: #### 3 5365-6, 2283-8, CMP, THYR, 2132-04 #### [facility] ([id number]) [address], [address] [place] [address] Sodium [Moles/Vol] 134 mmol/L Normal 134-146 [facility] Comment on above: Performed By: #### 3 5365-6, 8, CMP, THYR, 2132-04 #### [facility] ([id number]) [address], [address] [place] [address] Urea nitrogen [Mass/Vol] 17 mg/dL Normal 5-27 [facility] Comment on above: Performed By: #### 3 5365-6, 228-8, CMP, THYR, 2132-04 #### [facility] ([id number]) [address], [address] [place] [address] Calcium.ionized (Bld) [Moles /Vol]on 08-16-2023 [facility] 4.8 mg/dL Normal 4.5-5.3 [facility] Comment on above: Performed By: #### 3 5365-6, 2284-8, CMP, THYR, 2132-04 #### [facility] ([id number]) [address], [address] [place] [address] Lipid 1996 panelon 4 Cholesterol [Mass/Vol] 94 mg/dL Low 150-200 [facility] Comment on above: Performed By: #### 3 5365-6, 2284-8, CMP, THYR, 2132-04 #### [facility] ([id number]) [address], [address] [place] [address] Cholesterol in HDL [Mass/Vol] 19 mg/dL Low >39 [facility] Comment on above: Result Comment: HDL <40 mg/dL - High Risk HDL > or = 40mg/dL- Desirable HDL >60 mg/dL - Negative Risk Performed By: #### 3 5365-6, 2284-8, CMP, THYR, 2132-04 #### [facility] ([id number]) [address], [address] [place] [address] Cholesterol in LDL [Mass/Vol] 51 mg/dL Normal <130 [facility] Comment on above: Result Comment: LDL <100 mg/dL - Desirable LDL >160 mg/dL - High Risk Performed By: #### 3 5365-6, 2284-8, CMP, THYR, 2132-04 #### [facility] ([id number]) [address], [address] [place] [address] Cholesterol in VLDL [Mass/Vol] 24 mg/dL Normal 0-30 [facility] Comment on above: Performed By: #### 3 5365-6, 228-8, CMP, THYR, 2132-04 #### [facility] ([id number]) [address], [address] [place] [address] CHOLESTEROL:HDL 4.9 Normal 1.0-5.0 [facility] Comment on above: Performed By: #### 3 5365-6, 2283-8, CMP, THYR, 2132-04 #### [facility] ([id number]) [address], [address] [place] [address] Triglyceride [Mass/Vol] 122 mg/dL Normal 27-150 [facility] Comment on above: Performed By: #### 3 5365-6, 2283-8, CMP, THYR, 2132-04 #### [facility] ([id number]) [address], [address] [place] [address] MAGNESIUMon 08-16-2023 Magnesium [Mass/Vol] 2.6 mg/dL Normal 1.8-2.6 [facility] Comment on above: Performed By: #### 3 5365-6, 2283-8, CMP, THYR, 2132-04 #### [facility] ([id number]) [address], [address] [place] [address] Magnesium [Mass/Vol] 1.8 mg/dL Normal 1.8-2.6 [facility] Comment on above: Performed By: #### 3 5365-6, 228-8, CMP, THYR, 2132-04 #### [facility] ([id number]) [address], [address] [place] [address] CBC AND AUTO DIFFon 08-15-19 24 ABSOLUTE BASOPHIL 0.0 X10E9/L Normal 0.0-0.2 [facility] Comment on above: Performed By: #### 3 5365-6, 2283-8, CMP, THYR, 2132-04 #### [facility] ([id number]) [address], [address] [place] [address] ABSOLUTE NEUTROPHIL 8.0 X10E9/L High 1.5-6.6 [facility] Comment on above: Performed By: #### 3 5365-6, 2283-8, CMP, THYR, 2132-04 #### [facility] ([id number]) [address], [address] [place] [address] Basophils/100 WBC (Bld) 0.2 % Normal [facility] Comment on above: Performed By: #### 3 5365-6, 8, CMP, THYR, 2132-04 #### [facility] ([id number]) [address], [address] [place] [address] Eosinophils (Bld) [#/Vol] 0.1 10*3/uL Normal 0.0-0.4 [facility] Comment on above: Performed By: #### 3 5365-6, 2284-03, CMP, THYR, 2132-04 #### [facility] ([id number]) [address], [address] [place] [address] Eosinophils/100 WBC (Bld) 0.8 % Normal [facility] Comment on above: Performed By: #### 3 5365-6, 2284-03, CMP, THYR, 2132-04 #### [facility] ([id number]) [address], [address] [place] [address] Erythrocyte distribution width (RBC) [Ratio] 14.4 % Normal 11.5-15.0 [facility] Comment on above: Performed By: #### 3 5365-6, 8, CMP, THYR, 2132-04 #### [facility] ([id number]) [address], [address] [place] [address] Hematocrit (Bld) [Volume fraction] 31.3 % Low 35-47 [facility] Comment on above: Performed By: #### 3 5365-6, 228-8, CMP, THYR, 2132-04 #### [facility] ([id number]) [address], [address] [place] [address] Hemoglobin (Bld) [Mass/Vol] 10.3 g/dL Low 11.7-15.5 [facility] Comment on above: Performed By: #### 3 5365-6, 2283-8, CMP, THYR, 2132-04 #### [facility] ([id number]) [address], [address] [place] [address] Lymphocytes (Bld) [#/Vol] 0.9 10*3/uL Low 1.0-3.5 [facility] Comment on above: Performed By: #### 3 5365-6, 2283-8, CMP, THYR, 2132-04 #### [facility] ([id number]) [address], [address] [place] [address] Lymphocytes/100 WBC (Bld) 7.7 % Normal [facility] Comment on above: Performed By: #### 3 5365-6, 2283-8, CMP, THYR, 2132-04 #### [facility] ([id number]) [address], [address] [place] [address] MCH (RBC) [Entitic mass] 32.1 pg Normal 27-34 [facility] Comment on above: Performed By: #### 3 5365-6, 228-8, CMP, THYR, 2132-04 #### [facility] ([id number]) [address], [address] [place] [address] MCHC (RBC) [Mass/Vol] 33.0 g/dL Normal 32-36 [facility] Comment on above: Performed By: #### 3 5365-6, 228-8, CMP, THYR, 2132-04 #### [facility] ([id number]) [address], [address] [place] [address] MCV (RBC) [Entitic vol] 97 fL Normal 80-100 [facility] Comment on above: Performed By: #### 3 5365-6, 2284-8, CMP, THYR, 2132-04 #### [facility] ([id number]) [address], [address] [place] [address] Monocytes (Bld) [#/Vol] 2.2 10*3/uL High 0-0.9 [facility] Comment on above: Performed By: #### 3 5365-6, 2283-8, CMP, THYR, 2132-04 #### [facility] ([id number]) [address], [address] [place] [address] Monocytes/100 WBC (Bld) 20.0 % Normal [facility] Comment on above: Performed By: #### 3 5365-6, 2283-8, CMP, THYR, 2132-04 #### [facility] ([id number]) [address], [address] [place] [address] Neutrophils/100 WBC (Bld) 71.3 % Normal [facility] Comment on above: Performed By: #### 3 5365-6, 2283-8, CMP, THYR, 2132-04 #### [facility] ([id number]) [address], [address] [place] [address] Platelet mean volume (Bld) [Entitic vol] 8.1 fL Normal 7-12 [facility] Comment on above: Performed By: #### 3 5365-6, 228-8, CMP, THYR, 2132-04 #### [facility] ([id number]) [address], [address] [place] [address] Platelets (Bld) [#/Vol] 186 10*3/uL Normal 150-450 [facility] Comment on above: Performed By: #### 3 5365-6, 2284-8, CMP, THYR, 2132-04 #### [facility] ([id number]) [address], [address] [place] [address] RBC COUNT 3.22 X10E12/L Low 3.80-5.20 [facility] Comment on above: Performed By: #### 3 5365-6, 228-8, CMP, THYR, 2132-04 #### [facility] ([id number]) [address], [address] [place] [address] WBC (Bld) [#/Vol] 11.2 10*3/uL High 4.0-11.0 [facility] Comment on above: Performed By: #### 3 5365-6, 2283-8, CMP, THYR, 2132-04 #### [facility] ([id number]) [address], [address] [place] [address] COMPREHENSIVE METABOLIC PANE Keenan 08-15-2023 Albumin [Mass/Vol] 2.0 g/dL Low 3.2-5.3 [facility] Comment on above: Performed By: #### 3 5365-6, 2283-8, CMP, THYR, 2132-04 #### [facility] ([id number]) [address], [address] [place] [address] ALP [Catalytic activity/Vol] 39 U/L Normal 39-130 [facility] Comment on above: Performed By: #### 3 5365-6, 2284-8, CMP, THYR, 2132-04 #### [facility] ([id number]) [address], [address] [place] [address] ALT [Catalytic activity/Vol] 9 U/L Normal 0-31 [facility] Comment on above: Performed By: #### 3 5365-6, 2284-8, CMP, THYR, 2132-04 #### [facility] ([id number]) [address], [address] [place] [address] Anion gap [Moles/Vol] 7 mmol/L Normal 5-15 [facility] Comment on above: Performed By: #### 3 5365-6, 228-8, CMP, THYR, 2132-04 #### [facility] ([id number]) [address], [address] [place] [address] AST [Catalytic activity/Vol] 16 U/L Normal 0-41 [facility] Comment on above: Performed By: #### 3 5365-6, 2283-8, CMP, THYR, 2132-04 #### [facility] ([id number]) [address] [place] [address] Bilirubin [Mass/Vol] 0.3 mg/dL Normal 0.3-1.2 [facility] Comment on above: Performed By: #### 3 5365-6, 8, CMP, THYR, 2132-04 #### [facility] ([id number]) [address], [address] [place] [address] Calcium [Mass/Vol] 7.9 mg/dL Low 8.5-10.5 [facility] Comment on above: Performed By: #### 3 5365-6, 2283-8, CMP, THYR, 2132-04 #### [facility] ([id number]) [address] [place] [address] Chloride [Moles/Vol] 106 mmol/L Normal 98-109 [facility] Comment on above: Performed By: #### 3 5365-6, 228-8, CMP, THYR, 2132-04 #### [facility] ([id number]) [address] [place] [address] CO2 [Moles/Vol] 24 mmol/L Normal 22-32 [facility] Comment on above: Performed By: #### 3 5365-6, 2284-8, CMP, THYR, 2132-04 #### [facility] ([id number]) [address], [address] [place] [address] Creatinine [Mass/Vol] 1.37 mg/dL High 0.40-1.00 [facility] Comment on above: Result Comment: METH OD TRACEABLE TO IDMS STANDARD Performed By: #### 3 5365-6, 2283-8, CMP, THYR, 2132-04 #### [facility] ([id number]) [address], [address] [place] [address] GFR/1.73 sq M.predicted among non-blacks MDRD (S/P/Bld) [Vol rate/Area] 41 mL/min/{1.73_m2} Low >59 [facility] Comment on above: Result Comment: Reported eGFR is based on the CKD-EPI 2020 equation that does not use a race coefficient. Performed By: #### 3 5365-6, 2283-8, CMP, THYR, 2132-04 #### [facility] ([id number]) [address] [place] [address] Glucose [Mass/Vol] 90 mg/dL Normal 65-99 [facility] Comment on above: Performed By: #### 3 5365-6, 2283-8, CMP, THYR, 2132-04 #### [facility] ([id number]) [address], [address] [place] [address] Potassium [Moles/Vol] 3.7 mmol/L Normal 3.5-5.0 [facility] Comment on above: Performed By: #### 3 5365-6, 2284-8, CMP, THYR, 2132-04 #### [facility] ([id number]) [address], [address] [place] [address] Protein [Mass/Vol] 5.8 g/dL Low 6.0-8.0 [facility] Comment on above: Performed By: #### 3 5365-6, 2283-8, CMP, THYR, 2132-04 #### [facility] ([id number]) [address], [address] [place] [address] Sodium [Moles/Vol] 137 mmol/L Normal 134-146 [facility] Comment on above: Performed By: #### 3 5365-6, 8, CMP, THYR, 2132-04 #### [facility] ([id number]) [address] [place] [address] Urea nitrogen [Mass/Vol] 21 mg/dL Normal 5-27 [facility] Comment on above: Performed By: #### 3 5365-6, 8, CMP, THYR, 2132-04 #### [facility] ([id number]) [address], [address] [place] [address] MAGNESIUMon 08-15-2023 Magnesium [Mass/Vol] 1.8 mg/dL Normal 1.8-2.6 [facility] Comment on above: Performed By: #### 3 5365-6, 8, CMP, THYR, 2132-04 #### [facility] ([id number]) [address], [address] [place] [address] CBC AND AUTO DIFFon 08-14-20 ABSOLUTE BASOPHIL 0.0 X10E9/L Normal 0.0-0.2 [facility] Comment on above: Performed By: #### 3 5365-6, 2283-8, CMP, THYR, 2132-04 #### [facility] ([id number]) [address], [address] [place] [address] ABSOLUTE NEUTROPHIL 8.6 X10E9/L High 1.5-6.6 [facility] Comment on above: Performed By: #### 3 5365-6, 8, CMP, THYR, 2132-04 #### [facility] ([id number]) [address] [address] [place] [address] Basophils/100 WBC (Bld) 0.3 % Normal [facility] Comment on above: Performed By: #### 3 5365-6, 2283-8, CMP, THYR, 2132-04 #### [facility] ([id number]) [address], [facility] [address] [place] [address] Eosinophils (Bld) [#/Vol] 0.0 10*3/uL Normal 0.0-0.4 [facility] Comment on above: Performed By: #### 3 5365-6, 8, CMP, THYR, 2132-04 #### [facility] ([id number]) [address] [address] Eosinophils/100 WBC (Bld) 0.3 % Normal [facility] Comment on above: Performed By: #### 3 5365-6, 8, CMP, THYR, 2132-04 #### [facility] ([id number]) [address] [address] [place] [address] Erythrocyte distribution width (RBC) [Ratio] 14.3 % Normal 11.5-15.0 [facility] Comment on above: Performed By: #### 3 5365-6, 8, CMP, THYR, 2132-04 #### [facility] ([id number]) [address] [address] [place] [address] Hematocrit (Bld) [Volume fraction] 32.3 % Low 35-47 [facility] Comment on above: Performed By: #### 3 5365-6, 2283-8, CMP, THYR, 2132-04 #### [facility] ([id number]) [address] [address] [place] [address] Hemoglobin (Bld) [Mass/Vol] 10.5 g/dL Low 11.7-15.5 [facility] Comment on above: Performed By: #### 3 5365-6, 2284-03, CMP, THYR, 2132-04 #### [facility] ([id number]) [address], [facility] [address] [place] [address] Lymphocytes (Bld) [#/Vol] 0.9 10*3/uL Low 1.0-3.5 [facility] Comment on above: Performed By: #### 3 5365-6, 8, CMP, THYR, 2132-04 #### [facility] ([id number]) [address], [facility] [address] [place] [address] Lymphocytes/100 WBC (Bld) 7.9 % Normal [facility] Comment on above: Performed By: #### 3 5365-6, 2284-03, CMP, THYR, 2132-04 #### [facility] ([id number]) [address], [facility] [address] [place] [address] MCH (RBC) [Entitic mass] 31.7 pg Normal 27-34 [facility] Comment on above: Performed By: #### 3 5365-6, 2284-03, CMP, THYR, 2132-04 #### [facility] ([id number]) [address], [facility] [address] [place] [address] MCHC (RBC) [Mass/Vol] 32.5 g/dL Normal 32-36 [facility] Comment on above: Performed By: #### 3 5365-6, 8, CMP, THYR, 2132-04 #### [facility] ([id number]) [address] [address] [place] [address] MCV (RBC) [Entitic vol] 98 fL Normal 80-100 [facility] Comment on above: Performed By: #### 3 5365-6, 2284-8, CMP, THYR, 2132-04 #### [facility] ([id number]) [address], [address] [place] [address] Monocytes (Bld) [#/Vol] 2.0 10*3/uL High 0-0.9 [facility] Comment on above: Performed By: #### 3 5365-6, 2283-8, CMP, THYR, 2132-04 #### [facility] ([id number]) [address], [address] [place] [address] Monocytes/100 WBC (Bld) 17.2 % Normal [facility] Comment on above: Performed By: #### 3 5365-6, 2283-8, CMP, THYR, 2132-04 #### [facility] ([id number]) [address], [address] [place] [address] Neutrophils/100 WBC (Bld) 74.3 % Normal [facility] Comment on above: Performed By: #### 3 5365-6, 2283-8, CMP, THYR, 2132-04 #### [facility] ([id number]) [address], [address] [place] [address] Platelet mean volume (Bld) [Entitic vol] 8.4 fL Normal 7-12 [facility] Comment on above: Performed By: #### 3 5365-6, 2283-8, CMP, THYR, 2132-04 #### [facility] ([id number]) [address], [address] [place] [address] Platelets (Bld) [#/Vol] 207 10*3/uL Normal 150-450 [facility] Comment on above: Performed By: #### 3 5365-6, 228-8, CMP, THYR, 2132-04 #### [facility] ([id number]) [address], [address] [place] [address] RBC COUNT 3.31 X10E12/L Low 3.80-5.20 [facility] Comment on above: Performed By: #### 3 5365-6, 2283-8, CMP, THYR, 2132-04 #### [facility] ([id number]) [address], [address] [place] [address] RBC morphology finding Nom (Bld) NORMAL Normal [facility] Comment on above: Performed By: #### 3 5365-6, 2283-8, CMP, THYR, 2132-04 #### [facility] ([id number]) [address], [address] [place] [address] WBC (Bld) [#/Vol] 11.6 10*3/uL High 4.0-11.0 [facility] Comment on above: Performed By: #### 3 5365-6, 2283-8, CMP, THYR, 2132-04 #### [facility] ([id number]) [address], [address] [place] [address] COMPREHENSIVE METABOLIC PANE Keenan 08-14-2023 Albumin [Mass/Vol] 2.1 g/dL Low 3.2-5.3 [facility] Comment on above: Performed By: #### 3 5365-6, 2283-8, CMP, THYR, 2132-04 #### [facility] ([id number]) [address], [address] [place] [address] ALP [Catalytic activity/Vol] 40 U/L Normal 39-130 [facility] Comment on above: Performed By: #### 3 5365-6, 2283-8, CMP, THYR, 2132-04 #### [facility] ([id number]) [address], [address] [place] [address] ALT [Catalytic activity/Vol] 11 U/L Normal 0-31 [facility] Comment on above: Performed By: #### 3 5365-6, 2284-8, CMP, THYR, 2132-04 #### [facility] ([id number]) [address], [address] [place] [address] Anion gap [Moles/Vol] 6 mmol/L Normal 5-15 [facility] Comment on above: Performed By: #### 3 5365-6, 2283-8, CMP, THYR, 2132-04 #### [facility] ([id number]) [address], [address] [place] [address] AST [Catalytic activity/Vol] 14 U/L Normal 0-41 [facility] Comment on above: Performed By: #### 3 5365-6, 2283-8, CMP, THYR, 2132-04 #### [facility] ([id number]) [address], [address] [place] [address] Bilirubin [Mass/Vol] 0.5 mg/dL Normal 0.3-1.2 [facility] Comment on above: Performed By: #### 3 5365-6, 2283-8, CMP, THYR, 2132-04 #### [facility] ([id number]) [address], [address] [place] [address] Calcium [Mass/Vol] 7.8 mg/dL Low 8.5-10.5 [facility] Comment on above: Performed By: #### 3 5365-6, 2283-8, CMP, THYR, 2132-04 #### [facility] ([id number]) [address], [address] [place] [address] Chloride [Moles/Vol] 108 mmol/L Normal 98-109 [facility] Comment on above: Performed By: #### 3 5365-6, 228-8, CMP, THYR, 2132-04 #### [facility] ([id number]) [address], [address] [place] [address] CO2 [Moles/Vol] 24 mmol/L Normal 22-32 [facility] Comment on above: Performed By: #### 3 5365-6, 2283-8, CMP, THYR, 2132-04 #### [facility] ([id number]) [address], [address] [place] [address] Creatinine [Mass/Vol] 1.50 mg/dL High 0.40-1.00 [facility] Comment on above: Result Comment: METH OD TRACEABLE TO IDMS STANDARD Performed By: #### 3 5365-6, 8, CMP, THYR, 2132-04 #### [facility] ([id number]) [address], [address] [place] [address] GFR/1.73 sq M.predicted among non-blacks MDRD (S/P/Bld) [Vol rate/Area] 37 mL/min/{1.73_m2} Low >59 [facility] Comment on above: Result Comment: Reported eGFR is based on the CKD-EPI 2020 equation that does not use a race coefficient. Performed By: #### 3 5365-6, 8, CMP, THYR, 2132-04 #### [facility] ([id number]) [address], [address] [place] [address] Glucose [Mass/Vol] 97 mg/dL Normal 65-99 [facility] Comment on above: Performed By: #### 3 5365-6, 8, CMP, THYR, 2132-04 #### [facility] ([id number]) [address], [address] [place] [address] Potassium [Moles/Vol] 4.1 mmol/L Normal 3.5-5.0 [facility] Comment on above: Performed By: #### 3 5365-6, 2283-8, CMP, THYR, 2132-04 #### [facility] ([id number]) [address], [address] [place] [address] Protein [Mass/Vol] 6.0 g/dL Normal 6.0-8.0 [facility] Comment on above: Performed By: #### 3 5365-6, 228-8, CMP, THYR, 2132-04 #### [facility] ([id number]) [address], [address] [place] [address] Sodium [Moles/Vol] 138 mmol/L Normal 134-146 [facility] Comment on above: Performed By: #### 3 5365-6, 228-8, CMP, THYR, 2132-04 #### [facility] ([id number]) [address], [address] [place] [address] Urea nitrogen [Mass/Vol] 29 mg/dL High 5-27 [facility] Comment on above: Performed By: #### 3 5365-6, 2283-8, CMP, THYR, 2132-04 #### [facility] ([id number]) [address], [address] [place] [address] Calcium.ionized (Bld) [Moles /Vol]on 08-14-2023 PORTABLE ICA 4.7 mg/dL Normal 4.5-5.3 [facility] Comment on above: Performed By: #### 3 5365-6, 2283-8, CMP, THYR, 2132-04 #### [facility] ([id number]) [address], [address] [place] [address] MAGNESIUMon 08-14-2023 Magnesium [Mass/Vol] 2.1 mg/dL Normal 1.8-2.6 [facility] Comment on above: Performed By: #### 3 5365-6, 228-8, CMP, THYR, 2132-04 #### [facility] ([id number]) [address], [address] [place] [address] CBC AND AUTO DIFFon 08-13-20 23 Band form neutrophils/100 WBC (Bld) 1.9 % Normal [facility] Comment on above: Performed By: #### [place], [address]-9, CBCA, #### [facility] ([id number]) [address] [place] [address] Erythrocyte distribution width (RBC) [Ratio] 14.4 % Normal 11.5-15.0 [facility] Comment on above: Performed By: #### [place], 37811-9, CBCA, #### [facility] ([id number]) [address] [place] [address] Hematocrit (Bld) [Volume fraction] 39.2 % Normal 35-47 [facility] Comment on above: Performed By: #### C BARTOLO, 44762-1, CBCA, #### [facility] ([id number]) [address] [place] [address] Hemoglobin (Bld) [Mass/Vol] 12.9 g/dL Normal 11.7-15.5 [facility] Comment on above: Performed By: #### C BARTOLO, 07022-5, CBCA, #### [facility] ([id number]) [address] [place] [address] LYMPHOCYTE, ATYPICAL 1.0 % Normal [facility] Comment on above: Performed By: #### C MP, 51009-8, CBCA, #### [facility] ([id number]) [address] [place] [address] Lymphocytes (Bld) [#/Vol] 0.8 10*3/uL Low 1.0-3.5 [facility] Comment on above: Performed By: #### C MP, 16797-3, CBCA, #### [facility] ([id number]) [address] [place] [address] Lymphocytes/100 WBC (Bld) 4.8 % Normal [facility] Comment on above: Performed By: #### C MP, 05199-6, CBCA, #### [facility] ([id number]) [address] [place] [address] MCH (RBC) [Entitic mass] 32.2 pg Normal 27-34 [facility] Comment on above: Performed By: #### C BARTOLO, 72989-0, CBCA, #### [facility] ([id number]) [address] [place] [address] MCHC (RBC) [Mass/Vol] 32.9 g/dL Normal 32-36 [facility] Comment on above: Performed By: #### C BARTOLO, 11841-2, CBCA, #### [facility] ([id number]) [address] [place] [address] MCV (RBC) [Entitic vol] 98 fL Normal 80-100 [facility] Comment on above: Performed By: #### C BARTOLO, 29480-7, CBCA, #### [facility] ([id number]) [address] [place] [address] Monocytes (Bld) [#/Vol] 0.7 10*3/uL Normal 0-0.9 [facility] Comment on above: Performed By: #### C BARTOLO, 88484-6, CBCA, #### [facility] ([id number]) [address] [place] [address] Monocytes/100 WBC (Bld) 4.8 % Normal [facility] Comment on above: Performed By: #### C BARTOLO, 36477-5, CBCA, #### [facility] ([id number]) [address] [place] [address] MYELOCYTE 1.9 % Normal [facility] Comment on above: Performed By: #### C BARTOLO, 68755-8, CBCA, #### [facility] ([id number]) [address] [place] [address] Neutrophils (Bld) [#/Vol] 12.0 10*3/uL High 1.5-6.6 [facility] Comment on above: Performed By: #### C MP, 59795-3, CBCA, 75870-3 #### [facility] ([id number]) [address] [place] [address] Platelet mean volume (Bld) [Entitic vol] 8.2 fL Normal 7-12 [facility] Comment on above: Performed By: #### C MP, 53592-7, CBCA, 64651-1 #### [facility] ([id number]) [address] [place] [address] Platelets (Bld) [#/Vol] 291 10*3/uL Normal 150-450 [facility] Comment on above: Performed By: #### C BARTOLO, 84179-7, CBCA, 94133-9 #### [facility] ([id number]) [address] [place] [address] RBC COUNT 4.00 X10E12/L Normal 3.80-5.20 [facility] Comment on above: Performed By: #### C BARTOLO, 13942-2, CBCA, 40878-8 #### [facility] ([id number]) [address] [place] [address] RBC morphology finding Nom (Bld) NORMAL Normal [facility] Comment on above: Performed By: #### C MP, 62686-1, CBCA, 00331-4 #### [facility] ([id number]) [address] [place] [address] SEG NEUTROPHIL 85.6 % Normal [facility] Comment on above: Performed By: #### C MP, 18054-4, CBCA, 28222-6 #### [facility] ([id number]) [address] [place] [address] WBC (Bld) [#/Vol] 13.6 10*3/uL High 4.0-11.0 [facility] Comment on above: Performed By: #### C MP, 88595-1, CBCA, 10725-1 #### [facility] ([id number]) [address] [place] [address] COMPREHENSIVE METABOLIC PANE Keenan 08-13-2023 Albumin [Mass/Vol] 2.8 g/dL Low 3.2-5.3 [facility] Comment on above: Performed By: #### C BARTOLO, 38132-6, CBCA, #### [facility] ([id number]) [address] [place] [address] ALP [Catalytic activity/Vol] 50 U/L Normal 39-130 [facility] Comment on above: Performed By: #### C BARTOLO, 13561-1, CBCA, #### [facility] ([id number]) [address] [place] [address] ALT [Catalytic activity/Vol] 8 U/L Normal 0-31 [facility] Comment on above: Performed By: #### C BARTOLO, 89378-6, CBCA, #### [facility] ([id number]) [address] [place] [address] Anion gap [Moles/Vol] 11 mmol/L Normal 5-15 [facility] Comment on above: Performed By: #### C BARTOLO, 34750-8, CBCA, #### [facility] ([id number]) [address] [place] [address] AST [Catalytic activity/Vol] 14 U/L Normal 0-41 [facility] Comment on above: Performed By: #### C BARTOLO, 07710-6, CBCA, #### [facility] ([id number]) [address] [place] [address] Bilirubin [Mass/Vol] 0.7 mg/dL Normal 0.3-1.2 [facility] Comment on above: Performed By: #### C BARTOLO, 70499-3, CBCA, #### [facility] ([id number]) [address] [place] [address] Calcium [Mass/Vol] 8.8 mg/dL Normal 8.5-10.5 [facility] Comment on above: Performed By: #### C BARTOLO, 99254-1, CBCA, #### [facility] ([id number]) [address] [place] [address] Chloride [Moles/Vol] 104 mmol/L Normal 98-109 [facility] Comment on above: Performed By: #### C BARTOLO, 97413-7, CBCA, #### [facility] ([id number]) [address] [address] CO2 [Moles/Vol] 25 mmol/L Normal 22-32 [facility] Comment on above: Performed By: #### C BARTOLO, 56859-9, CBCJaylen, #### [facility] ([id number]) [address] [address] Creatinine [Mass/Vol] 2.04 mg/dL High 0.40-1.00 [facility] Comment on above: Result Comment: METH OD TRACEABLE TO IDMS STANDARD Performed By: #### C BARTOLO, , REFUGIO, #### [facility] ([id number]) [address] [address] GFR/1.73 sq M.predicted among non-blacks MDRD (S/P/Bld) [Vol rate/Area] 25 mL/min/{1.73_m2} Low >59 [facility] Comment on above: Result Comment: Reported eGFR is based on the CKD-EPI 2020 equation that does not use a race coefficient. Performed By: #### C BARTOLO, 42627-5, CBCJaylen, #### [facility] ([id number]) [address] [place] [address] Glucose [Mass/Vol] 109 mg/dL High 65-99 [facility] Comment on above: Performed By: #### C BARTOLO, 79027-1, CBCJaylen, #### [facility] ([id number]) [address] [place] [address] Potassium [Moles/Vol] 4.1 mmol/L Normal 3.5-5.0 [facility] Comment on above: Performed By: #### C BARTOLO, 13502-1, CBCA, 11692-2 #### [facility] ([id number]) [address] [place] [address] Protein [Mass/Vol] 7.9 g/dL Normal 6.0-8.0 [facility] Comment on above: Performed By: #### C MP, 29186-4, CBCA, 48350-7 #### [facility] ([id number]) [address] [place] [address] Sodium [Moles/Vol] 140 mmol/L Normal 134-146 [facility] Comment on above: Performed By: #### C MP, 99171-6, CBCA, 05047-1 #### [facility] ([id number]) [address] [place] [address] Urea nitrogen [Mass/Vol] 38 mg/dL High 5-27 [facility] Comment on above: Performed By: #### C MP, 50715-2, CBCA, 75607-3 #### [facility] ([id number]) [address] [place] [address] CT BRAIN WO CONTon CT BRAIN WO CONT CT BRAIN WO CONT CT BRAIN WO CONT: 08/13/2023 10:32 AM Clinical: Syncope. Injury. CVA. EXAM: NONCONTRAST BRAIN CT Comparison: none Procedure: Multi-detector CT performed through the brain without IV contrast. Automatic exposure control utilized. All CT scans at this facility use dose modulation, iterative reconstruction, and/or weight based dosing when appropriate to reduce radiation dose to as low as reasonably achievable. Findings: There is supratentorial atrophy with prominent ventricles and sulci. There is extensive low-attenuation changes in the periventricular and deep white matter, likely due to chronic small vessel ischemic change. There is a small old lacunar infarct adjacent to the body of the left lateral ventricle. There is no intracranial hemorrhage, extra-axial fluid collection, mass effect, midline shift, or hydrocephalus. Changes of acute ischemia may be delayed on CT. If there is clinical concern for acute ischemia or other occult abnormality, consider MRI. IMPRESSION: * No acute intracranial findings. * Supratentorial atrophy and chronic small vessel ischemic changes. Finalized by Tyrell Galo MD on 08/13/2023 10:38 AM Normal [facility] MAGNESIUMon 08-13-2023 Magnesium [Mass/Vol] 2.4 mg/dL Normal 1.8-2.6 [facility] Comment on above: Performed By: #### C MP, 12592-2, CBCA, 67174-1 #### [facility] ([id number]) [address] [place] [address] SARS/FLU A+B/RSV by NAAT/Mol ecularon 08-13-2023 SARS/FLU A+B/RSV by NAAT/Molecular FLU A PCR Negative (qualifier value) FLU B PCR Negative (qualifier value) RSV by PCR Negative (qualifier value) SARS CoV 2 Not detected (qualifier value) NOTE The Xpert Xpress SARS-CoV-2/Flu/RSV Plus test is a rapid, multiplexed real-time RT-PCR test intended for the simultaneous qualitative detection and differentiation of SARS-CoV-2, influenza A, influenza B and respiratory syncytial virus (RSV) viral RNA from individuals suspected of respiratory viral infection consistent with COVID-19 by their healthcare provider. This test has not been validated in asymptomatic patients. The Xpert Xpress SARS-CoV-2 test is intended for use by qualified and trained operators who are performing tests using either [employer] or [employer] systems and is limited to laboratories that meet the CLIA requirements to perform high and moderate complexity tests. The Xpert Xpress SARS-CoV-2/Flu/RSV Plus is only for use under the Food and Drug Administration's Emergency Use Authorization. Results are for the simultaneous detection and differentiation of SARS-CoV-2, influenza A, influenza B and RSV nucleic acids in clinical specimens. SARS-CoV-2, influenza A, influenza B and RSV RNA identified by this test are generally detectable in upper respiratory samples during the acute phase of infection. Positive results are indicative of the presence of the identified virus, but do not rule out bacterial infection or co-infection with other pathogens not detected by this test. Clinical correlation with patient history and other diagnostic information is necessary to determine patient infection status. The agent detected may not be the definite cause of disease. Negative results do not preclude SARS-CoV-2, influenza A, influenza B and RSV infection and should not be used as the sole basis for treatment or other patient management decisions. Negative results must be combined with clinical observations, patient history and epidemiological information. An Invalid result may occur with specimen-associated inhibition unable to be resolved with specimen repeat. Fact Sheet for Healthcare Providers: https://www.fda.gov/media/ 674610/download Fact Sheet for Patients: https://www.fda.gov/media/ 937792/download Normal [facility] Comment on above: Performed By: #### 3 5365-6, 2284-8, CMP, THYR, 2132-04 #### [facility] ([id number]) [address], [address] [place] [address] TROPONIN Ion 08-13-2023 Troponin I.cardiac [Mass/Vol] ng/mL Normal 0.00-0.04 [facility] Comment on above: Performed By: #### C MP, 60082-0, CBCA, 70748-6 #### [facility] ([id number]) [address] [place] [address] URINE CULTUREon 08-13-2023 Bacteria identified Cx Nom (U) CULTURE RESULTS <10,000 ORGANISMS/ML NORMAL URO GENITAL GERARD Normal [facility] Comment on above: Performed By: #### 3 5365-6, 2284-8, CMP, THYR, 2132-04 #### [facility] ([id number]) [address], [address] [place] [address] URN MACROSCOPIC NURon 2022 BILIRUBIN ORACIO Negative Normal NEG [facility] Comment on above: Performed By: #### 3 5365-6, 2284-8, CMP, THYR, 2132-04 #### [facility] ([id number]) [address], [address] [place] [address] BLOOD/HGB ORACIO Trace Abnormal NEG [facility] Comment on above: Performed By: #### 3 5365-6, 2284-8, CMP, THYR, 2132-04 #### [facility] ([id number]) [address] [place] [address] GLUCOSE ORACIO Negative Normal NEG [facility] Comment on above: Performed By: #### 3 5365-6, 228-8, CMP, THYR, 2132-04 #### [facility] ([id number]) [address], [address] [place] [address] KETONES ORACIO Trace Abnormal NEG [facility] Comment on above: Performed By: #### 3 5365-6, 228-8, CMP, THYR, 2132-04 #### [facility] ([id number]) [address] [place] [address] LEUKOCYTE ESTERASE ORACIO Negative Normal NEG [facility] Comment on above: Performed By: #### 3 5365-6, 2283-8, CMP, THYR, 2132-04 #### [facility] ([id number]) [address] [place] [address] NITRITE ORACIO Negative Normal NEG [facility] Comment on above: Performed By: #### 3 5365-6, 2283-8, CMP, THYR, 2132-04 #### [facility] ([id number]) [address] [place] [address] PH ORACIO 5.0 Normal 5.0-8.5 [facility] Comment on above: Performed By: #### 3 5365-6, 2283-8, CMP, THYR, 2132-04 #### [facility] ([id number]) [address] [place] [address] PROTEIN ORACIO 100 mg/dL Abnormal NEG [facility] Comment on above: Performed By: #### 3 5365-6, 228-8, CMP, THYR, 2132-04 #### [facility] ([id number]) [address] [place] [address] SPECIFIC GRAVITY ORACIO 1.020 Normal 1.003-1.035 [facility] Comment on above: Performed By: #### 3 5365-6, 2284-8, CMP, THYR, 2132-04 #### [facility] ([id number]) [address], [address] [place] [address] UROBILINOGEN ORACIO 0.2 eu/dL Normal <1.1 [facility] Comment on above: Performed By: #### 3 5365-6, 2284-8, CMP, THYR, 2132-04 #### [facility] ([id number]) [address], [address] [place] [address] Urine collection deviceon ER EXTRA URINES ER EXTRA URINE ORDER IN PROCESS Normal [facility] Comment on above: Performed By: #### 3 5365-6, 2283-8, CMP, THYR, 2132-04 #### [facility] ([id number]) [address] [place] [address] XR CHEST 1 VWon 08-13-2023 XR CHEST 1 VW XR CHEST 1 VW XR CHEST 1 VW: 08/13/2023 10:35 AM Clinical: Syncope. Weakness. Upright portable chest obtained. No comparison Heart size is normal. No acute consolidation, large effusion, or pneumothorax. IMPRESSION: * No acute disease to limits of this portable exam. Finalized by Tyrell Galo MD on 08/13/2023 10:41 AM Normal [facility] COMPREHENSIVE METABOLIC PANE Keenan 08-12-2023 Albumin [Mass/Vol] 3.0 g/dL Low 3.2-5.3 [facility] Comment on above: Performed By: #### 3 5365-6, 2284-8, CMP, THYR, 2132-04 #### [facility] ([id number]) [address], [address] [place] [address] ALP [Catalytic activity/Vol] 51 U/L Normal 39-130 [facility] Comment on above: Performed By: #### 3 5365-6, 2284-8, CMP, THYR, 2132-04 #### [facility] ([id number]) [address] [place] [address] ALT [Catalytic activity/Vol] 5 U/L Normal 0-31 [facility] Comment on above: Performed By: #### 3 5365-6, 2284-8, CMP, THYR, 2132-04 #### [facility] ([id number]) [address] [place] [address] Anion gap [Moles/Vol] 12 mmol/L Normal 5-15 [facility] Comment on above: Performed By: #### 3 5365-6, 2284-8, CMP, THYR, 2132-04 #### [facility] ([id number]) [address] [place] [address] AST [Catalytic activity/Vol] 8 U/L Normal 0-41 [facility] Comment on above: Performed By: #### 3 5365-6, 228-8, CMP, THYR, 2132-04 #### [facility] ([id number]) [address] [place] [address] Bilirubin [Mass/Vol] 0.5 mg/dL Normal 0.3-1.2 [facility] Comment on above: Performed By: #### 3 5365-6, 2284-8, CMP, THYR, 2132-04 #### [facility] ([id number]) [address] [place] [address] Calcium [Mass/Vol] 8.8 mg/dL Normal 8.5-10.5 [facility] Comment on above: Performed By: #### 3 5365-6, 2284-8, CMP, THYR, 2132-04 #### [facility] ([id number]) [address], [address] [place] [address] Chloride [Moles/Vol] 101 mmol/L Normal 98-109 [facility] Comment on above: Performed By: #### 3 5365-6, 2284-8, CMP, THYR, 2132-04 #### [facility] ([id number]) [address], [address] [place] [address] CO2 [Moles/Vol] 26 mmol/L Normal 22-32 [facility] Comment on above: Performed By: #### 3 5365-6, 228-8, CMP, THYR, 2132-04 #### [facility] ([id number]) [address], [address] [place] [address] Creatinine [Mass/Vol] 1.93 mg/dL High 0.40-1.00 [facility] Comment on above: Result Comment: METH OD TRACEABLE TO IDMS STANDARD Performed By: #### 3 5365-6, 2283-8, CMP, THYR, 2132-04 #### [facility] ([id number]) [address], [address] [place] [address] GFR/1.73 sq M.predicted among non-blacks MDRD (S/P/Bld) [Vol rate/Area] 27 mL/min/{1.73_m2} Low >59 [facility] Comment on above: Result Comment: Reported eGFR is based on the CKD-EPI 2020 equation that does not use a race coefficient. Performed By: #### 3 5365-6, 228-8, CMP, THYR, 2132-04 #### [facility] ([id number]) [address], [address] [place] [address] Glucose [Mass/Vol] 98 mg/dL Normal 65-99 [facility] Comment on above: Performed By: #### 3 5365-6, 2284-8, CMP, THYR, 2132-04 #### [facility] ([id number]) [address], [address] [place] [address] Potassium [Moles/Vol] 4.0 mmol/L Normal 3.5-5.0 [facility] Comment on above: Performed By: #### 3 5365-6, 2283-8, CMP, THYR, 2132-04 #### [facility] ([id number]) [address], [address] [place] [address] Protein [Mass/Vol] 7.1 g/dL Normal 6.0-8.0 [facility] Comment on above: Performed By: #### 3 5365-6, 2283-8, CMP, THYR, 2132-04 #### [facility] ([id number]) [address], [address] [place] [address] Sodium [Moles/Vol] 139 mmol/L Normal 134-146 [facility] Comment on above: Performed By: #### 3 5365-6, 2283-8, CMP, THYR, 2132-04 #### [facility] ([id number]) [address], [address] [place] [address] Urea nitrogen [Mass/Vol] 32 mg/dL High 5-27 [facility] Comment on above: Performed By: #### 3 5365-6, 2283-8, CMP, THYR, 2132-04 #### [facility] ([id number]) [address], [address] [place] [address] Folate [Mass/Vol]on 08-12-20 FOLIC ACID 10.0 ng/mL Normal >5.8 [facility] Comment on above: Result Comment: NEW REFERENCE RANGE Performed By: #### 3 5365-6, 228-8, CMP, THYR, 2132-04 #### [facility] ([id number]) [address], [address] [place] [address] THYROID PROFILEon 08-12-2023 Free T4 [Mass/Vol] 1.78 ng/dL High 0.61-1.60 [facility] Comment on above: Performed By: #### 3 5365-6, 2283-8, CMP, THYR, 2132-04 #### [facility] ([id number]) [address], [address] [place] [address] TSH 0.22 uIU/mL Low 0.49-4.67 [facility] Comment on above: Performed By: #### 3 5365-6, 2283-8, [facility], THYR, 2132-04 #### [facility] ([id number]) [address], [address] [place] [address] VITAMIN B12on 08-12-2023 Cobalamin (Vitamin B12) [Mass/Vol] 538 pg/mL Normal 180-914 [facility] Comment on above: Performed By: #### 3 5365-6, 2283-8, [facility], THYR, 2132-04 #### [facility] ([id number]) [address], [address] [place] [address] Vitamin D+Metabolites [Mass/ Vol]on 08-12-2023 VITAMIN D 25 HYD TOT 17.6 ng/mL Low 30-100 [facility] Comment on above: Result Comment: Vitamin D status 25 [place] Vitamin D Deficiency <20 ng/mL Insufficiency 20-29 ng/mL Sufficiency 30-100 ng/mL Toxicity >100 ng/mL NOTE: A pediatric reference range has not been established by the sales incentive analyst of this kit. The [place] [employer] recommends a Vitamin D level of = or >20ng/mL in infants and children. Performed By: #### 3 5365-6, 2284-8, CMP, THYR, 2132-04 #### [facility] ([id number]) [address], [address] [place] [address] Basic Metab w/rfx MGon 08-06 Anion gap [Moles/Vol] 7 mmol/L Low 9-17 [facility] Comment on above: Performed By: #### P E #### [address] [address] Improvement Analyst: Ramon Hussein MD Calcium [Mass/Vol] 8.4 mg/dL Low 8.6-10.4 [facility] Comment on above: Performed By: #### P E #### [address] [address] Improvement Analyst: Ramon Hussein MD Chloride [Moles/Vol] 103 mmol/L Normal 98-107 [facility] Comment on above: Performed By: #### P E #### [address] [address] Improvement Analyst: Ramon Hussein MD CO2 [Moles/Vol] 24 mmol/L Normal 20-31 [facility] Comment on above: Performed By: #### P E #### [address] [address] Improvement Analyst: Ramon Hussein MD Creatinine [Mass/Vol] 1.8 mg/dL High 0.5-0.9 [facility] Comment on above: Performed By: #### P E #### [address] [address] Improvement Analyst: Ramon Hussein MD GFR/1.73 sq M.predicted among non-blacks MDRD (S/P/Bld) [Vol rate/Area] 29 mL/min/{1.73_m2} Low >60 [facility] Comment on above: Result Comment: These results are not intended for use in patients <18 years of age. eGFR results are calculated without a race factor using the 2020 CKD-EPI equation. Careful clinical correlation is recommended, particularly when comparing to results calculated using previous equations. The CKD-EPI equation is less accurate in patients with extremes of muscle mass, extra-renal metabolism of creatine, excessive creatine ingestion, or following therapy that affects renal tubular secretion. Performed By: #### P E #### [facility] [address] [place] [address] Improvement Analyst: Ramon Hussein MD Glucose [Mass/Vol] 88 mg/dL Normal 70-99 [facility] Comment on above: Performed By: #### P E #### [facility] [address] [place] [address] Improvement Analyst: Ramon Hussein MD Potassium [Moles/Vol] 4.4 mmol/L Normal 3.7-5.3 [facility] Comment on above: Performed By: #### P E #### [facility] [address] [place] [address] Improvement Analyst: Ramon Hussein MD Sodium [Moles/Vol] 134 mmol/L Low 135-144 [facility] Comment on above: Performed By: #### P E #### [facility] [address] [place] [address] Improvement Analyst: Ramon Hussein MD Urea nitrogen [Mass/Vol] 22 mg/dL Normal 8-23 [facility] Comment on above: Performed By: #### P E #### [address] [address] Improvement Analyst: Ramon Hussein MD Basic Metabolic Panel w/ Ref kya to MGon 08-06-2023 Anion gap [Moles/Vol] 7 mmol/L Low 9 - 17 mmol/L [facility] Calcium [Mass/Vol] 8.4 mg/dL Low 8.6 - 10. 4 mg/dL [facility] Chloride [Moles/Vol] 103 mmol/L 98 - 107 mmol/L [facility] CO2 [Moles/Vol] 24 mmol/L 20 - 31 mmol/L [facility] Creatinine [Mass/Vol] 1.8 mg/dL High 0.5 - 0.9 mg/dL [facility] GFR/1.73 sq M.predicted MDRD (S/P/Bld) [Vol rate/Area] 29 mL/min/{1.73_m2} Low - PINF [facility] Comment on above: These results are not intended for use in patients <18 years of age. eGFR results are calculated without a race factor using the 2020 CKD-EPI equation. Careful clinical correlation is recommended, particularly when comparing to results calculated using previous equations. The CKD-EPI equation is less accurate in patients with extremes of muscle mass, extra-renal metabolism of creatine, excessive creatine ingestion, or following therapy that affects renal tubular secretion. Glucose [Mass/Vol] 88 mg/dL 70 - 99 mg/dL [facility] Interpretation and review of laboratory results Abnormal [facility] Potassium [Moles/Vol] 4.4 mmol/L 3.7 - 5.3 mmol/L [facility] Sodium [Moles/Vol] 134 mmol/L Low 135 - 144 mmol/L [facility] Urea nitrogen [Mass/Vol] 22 mg/dL 8 - 23 mg/dL [facility] CBC with Auto Differentialon 08-06-2023 Basophils (Bld) [#/Vol] 0.05 10*3/uL [facility] Basophils/100 WBC (Bld) 1 % 0 - 2 % [facility] Eosinophils (Bld) [#/Vol] 0.26 10*3/uL [facility] Eosinophils/100 WBC (Bld) 3 % 1 - 4 % [facility] Erythrocyte distribution width (RBC) [Ratio] 14.6 % High 11.8 - 14.4 % [facility] Hematocrit (Bld) [Volume fraction] 36.9 % 36.3 - 47.1 % [facility] Hemoglobin (Bld) [Mass/Vol] 11.6 g/dL Low 11.9 - 15.1 g/dL [facility] Immature granulocytes (Bld) [#/Vol] 0.14 10*3/uL [facility] Immature granulocytes/100 WBC (Bld) 2 % High 0 [facility] Interpretation and review of laboratory results Abnormal [facility] Lymphocytes/100 WBC (Bld) 11 % Low 24 - 43 % [facility] Lymphocytes/100 WBC (Bld) 1.00 % Low [facility] MCH (RBC) [Entitic mass] 31.8 pg 25.2 - 33.5 pg [facility] MCHC (RBC) [Mass/Vol] 31.4 g/dL 28.4 - 34.8 g/dL [facility] MCV (RBC) [Entitic vol] 101.1 fL 82.6 - 102.9 fL [facility] Monocytes/100 WBC (Bld) 16 % High 3 - 12 % [facility] Monocytes/100 WBC (Bld) 1.46 % High [facility] Neutrophils/100 WBC (Bld) 67 % High 36 - 65 % [facility] Nucleated RBC/100 WBC (Bld) [Ratio] 0.0 % 0.0 per 100 WBC [facility] Platelet mean volume (Bld) [Entitic vol] 9.5 fL 8.1 - 13.5 fL [facility] Platelets (Bld) [#/Vol] 255 10*3/uL [facility] RBC (Bld) [#/Vol] 3.65 10*6/uL Low 3.95 - 5.1 1 m/uL [facility] RBC (Bld) [#/Vol] ANISOCYTOSIS PRESENT [facility] Segmented neutrophils/100 WBC (Bld) 5.97 % [facility] WBC other (Bld) [#/Vol] 8.9 [facility] CBC with Diffon 08-06-2023 Abs. Basophil 0.05 k/uL Normal 0.00-0.20 [facility] Comment on above: Performed By: #### P E #### [facility] [address] [place] [address] Improvement Analyst: Ramon Hussein MD Abs.Imm.Granulocyt e 0.14 k/uL Normal 0.00-0.30 [facility] Comment on above: Performed By: #### P E #### [address] [address] Improvement Analyst: Ramon Hussein MD Abs.Neutrophil (Seg) 5.97 k/uL Normal 1.50-8.10 [facility] Comment on above: Performed By: #### P E #### [address] [address] Improvement Analyst: Ramon Hussein MD Basophils/100 WBC (Bld) 1 % Normal 0-2 [facility] Comment on above: Performed By: #### P E #### [address] [address] Improvement Analyst: Ramon Hussein MD Eosinophils (Bld) [#/Vol] 0.26 10*3/uL Normal 0.00-0.44 [facility] Comment on above: Performed By: #### P E #### [address] [address] Improvement Analyst: Ramon Hussein MD Eosinophils/100 WBC (Bld) 3 % Normal 1-4 [facility] Comment on above: Performed By: #### P E #### [address] [address] Improvement Analyst: Ramon Hussein MD Erythrocyte distribution width (RBC) [Ratio] 14.6 % High 11.8-14.4 [facility] Comment on above: Performed By: #### P E #### [address] [address] Improvement Analyst: Ramon Hussein MD Hematocrit (Bld) [Volume fraction] 36.9 % Normal 36.3-47.1 [facility] Comment on above: Performed By: #### P E #### [address] [address] Improvement Analyst: Ramon Hussein MD Hemoglobin (Bld) [Mass/Vol] 11.6 g/dL Low 11.9-15.1 [facility] Comment on above: Performed By: #### P E #### [place] [place] [place] [address] Improvement Analyst: Ramon Hussein MD Immature granulocytes/100 WBC (Bld) 2 % High 0 [facility] Comment on above: Performed By: #### P E #### [address] [address] Improvement Analyst: Ramon Hussein MD Lymphocytes (Bld) [#/Vol] 1.00 10*3/uL Low 1.10-3.70 [facility] Comment on above: Performed By: #### P E #### [address] [address] Improvement Analyst: Ramon Hussein MD Lymphocytes/100 WBC (Bld) 11 % Low 24-43 [facility] Comment on above: Performed By: #### P E #### [address] [address] Improvement Analyst: Ramon Hussein MD MCH (RBC) [Entitic mass] 31.8 pg Normal 25.2-33.5 [facility] Comment on above: Performed By: #### P E #### [place] [address] Improvement Analyst: Ramon Hussein MD MCHC (RBC) [Mass/Vol] 31.4 g/dL Normal 28.4-34.8 [facility] Comment on above: Performed By: #### P E #### [address] [address] Improvement Analyst: Ramon Hussein MD MCV (RBC) [Entitic vol] 101.1 fL Normal 82.6-102.9 [facility] Comment on above: Performed By: #### P E #### [address] [address] Improvement Analyst: Ramon Hussein MD Monocytes (Bld) [#/Vol] 1.46 10*3/uL High 0.10-1.20 [facility] Comment on above: Performed By: #### P E #### [address] [address] Improvement Analyst: Ramon Hussein MD Monocytes/100 WBC (Bld) 16 % High 3-12 [facility] Comment on above: Performed By: #### P E #### [address] [address] Improvement Analyst: Ramon Hussein MD Neutrophil (Seg) 67 % High 36-65 [facility] Comment on above: Performed By: #### P E #### [address] [address] Improvement Analyst: Ramon Hussein MD NRBC Automated 0.0 per 100 WBC Normal 0.0 [facility] Comment on above: Performed By: #### P E #### [address] [address] Improvement Analyst: Ramon Hussein MD Platelet mean volume (Bld) [Entitic vol] 9.5 fL Normal 8.1-13.5 [facility] Comment on above: Performed By: #### P E #### [address] [address] Improvement Analyst: Ramon Hussein MD Platelets (Bld) [#/Vol] 255 10*3/uL Normal 138-453 [facility] Comment on above: Performed By: #### P E #### [address] [address] Improvement Analyst: Ramon Hussein MD RBC (Bld) [#/Vol] 3.65 10*6/uL Low 3.95-5.11 [facility] Comment on above: Performed By: #### P E #### [address] [address] Improvement Analyst: Ramon Hussein MD RBC morphology finding Nom (Bld) ANISOCYTOSIS PRESENT Normal [facility] Comment on above: Performed By: #### P E #### [place] [address] Improvement Analyst: Ramon Hussein MD WBC (Bld) [#/Vol] 8.9 10*3/uL Normal 3.5-11.3 [facility] Comment on above: Performed By: #### P E #### [place] [address] Improvement Analyst: Ramon Hussein MD Basic Metab w/rfx MGon 08-05 Anion gap [Moles/Vol] 12 mmol/L Normal 9-17 [facility] Comment on above: Performed By: #### C DP, BMPX #### [place] [address] Improvement Analyst: Ramon Hussein MD Calcium [Mass/Vol] 8.2 mg/dL Low 8.6-10.4 [facility] Comment on above: Performed By: #### C DP, BMPX #### [address] [address] Improvement Analyst: Ramon Hussein MD Chloride [Moles/Vol] 102 mmol/L Normal 98-107 [facility] Comment on above: Performed By: #### C DP, BMPX #### [address] [address] Improvement Analyst: Ramon Hussein MD CO2 [Moles/Vol] 22 mmol/L Normal 20-31 [facility] Comment on above: Performed By: #### C DP, BMPX #### [facility] [address] [place] [address] Improvement Analyst: Ramon Hussein MD Creatinine [Mass/Vol] 1.7 mg/dL High 0.5-0.9 [facility] Comment on above: Performed By: #### C DP, BMPX #### [facility] [address] [place] [address] Improvement Analyst: Ramon Hussein MD GFR/1.73 sq M.predicted among non-blacks MDRD (S/P/Bld) [Vol rate/Area] 31 mL/min/{1.73_m2} Low >60 [facility] Comment on above: Result Comment: These results are not intended for use in patients <18 years of age. eGFR results are calculated without a race factor using the 2020 CKD-EPI equation. Careful clinical correlation is recommended, particularly when comparing to results calculated using previous equations. The CKD-EPI equation is less accurate in patients with extremes of muscle mass, extra-renal metabolism of creatine, excessive creatine ingestion, or following therapy that affects renal tubular secretion. Performed By: #### C DP, BMPX #### [facility] [address] [place] [address] Improvement Analyst: Ramon Hussein MD Glucose [Mass/Vol] 85 mg/dL Normal 70-99 [facility] Comment on above: Performed By: #### C DP, BMPX #### [facility] [address] [place] [address] Improvement Analyst: Ramon Hussein MD Potassium [Moles/Vol] 4.3 mmol/L Normal 3.7-5.3 [facility] Comment on above: Performed By: #### C DP, BMPX #### [facility] [address] [place] [address] Improvement Analyst: Ramon Hussein MD Sodium [Moles/Vol] 136 mmol/L Normal 135-144 [facility] Comment on above: Performed By: #### C DP, BMPX #### [facility] [address], [place] [id number] Improvement Analyst: Ramon Hussein MD Urea nitrogen [Mass/Vol] 23 mg/dL Normal 8-23 [facility] Comment on above: Performed By: #### C DP, BMPX #### [facility] [address], [place] [id number] Improvement Analyst: Ramon Hussein MD Basic Metabolic Panel w/ Ref kya to MGon 08-05-2023 Anion gap [Moles/Vol] 12 mmol/L 9 - 17 mmol/L [facility] Calcium [Mass/Vol] 8.2 mg/dL Low 8.6 - 10. 4 mg/dL [facility] Chloride [Moles/Vol] 102 mmol/L 98 - 107 mmol/L [facility] CO2 [Moles/Vol] 22 mmol/L 20 - 31 mmol/L [facility] Creatinine [Mass/Vol] 1.7 mg/dL High 0.5 - 0.9 mg/dL [facility] GFR/1.73 sq M.predicted MDRD (S/P/Bld) [Vol rate/Area] 31 mL/min/{1.73_m2} Low - PINF [facility] Comment on above: These results are not intended for use in patients <18 years of age. eGFR results are calculated without a race factor using the 2020 CKD-EPI equation. Careful clinical correlation is recommended, particularly when comparing to results calculated using previous equations. The CKD-EPI equation is less accurate in patients with extremes of muscle mass, extra-renal metabolism of creatine, excessive creatine ingestion, or following therapy that affects renal tubular secretion. Glucose [Mass/Vol] 85 mg/dL 70 - 99 mg/dL [facility] Interpretation and review of laboratory results Abnormal [facility] Potassium [Moles/Vol] 4.3 mmol/L 3.7 - 5.3 mmol/L [facility] Sodium [Moles/Vol] 136 mmol/L 135 - 144 mmol/L [facility] Urea nitrogen [Mass/Vol] 23 mg/dL 8 - 23 mg/dL [facility] CBC with Auto Differentialon 08-05-2023 Basophils (Bld) [#/Vol] 0.00 10*3/uL [facility] Basophils/100 WBC (Bld) 0 % 0 - 2 % [facility] Eosinophils (Bld) [#/Vol] 0.00 10*3/uL [facility] Eosinophils/100 WBC (Bld) 0 % Low 1 - 4 % [facility] Erythrocyte distribution width (RBC) [Ratio] 14.4 % 11.8 - 14.4 % [facility] Hematocrit (Bld) [Volume fraction] 35.5 % Low 36.3 - 47.1 % [facility] Hemoglobin (Bld) [Mass/Vol] 11.0 g/dL Low 11.9 - 15.1 g/dL [facility] Immature granulocytes (Bld) [#/Vol] 0.10 10*3/uL [facility] Immature granulocytes/100 WBC (Bld) 1 % High 0 [facility] Interpretation and review of laboratory results Abnormal [facility] Lymphocytes/100 WBC (Bld) 10 % Low 24 - 44 % [facility] Lymphocytes/100 WBC (Bld) 1.04 % [facility] MCH (RBC) [Entitic mass] 31.9 pg 25.2 - 33.5 pg [facility] MCHC (RBC) [Mass/Vol] 31.0 g/dL 28.4 - 34.8 g/dL [facility] MCV (RBC) [Entitic vol] 102.9 fL 82.6 - 102.9 fL [facility] Monocytes/100 WBC (Bld) 15 % High 1 - 7 % [facility] Monocytes/100 WBC (Bld) 1.56 % High [facility] Morphology Jose Cruz (Bld) [Interp] Normal [facility] Neutrophils/100 WBC (Bld) 74 % High 36 - 66 % [facility] Nucleated RBC/100 WBC (Bld) [Ratio] 0.0 % 0.0 per 100 WBC [facility] Platelet mean volume (Bld) [Entitic vol] 9.8 fL 8.1 - 13.5 fL [facility] Platelets (Bld) [#/Vol] 256 10*3/uL [facility] RBC (Bld) [#/Vol] 3.45 10*6/uL Low 3.95 - 5.1 1 m/uL [facility] Segmented neutrophils/100 WBC (Bld) 7.70 % [facility] WBC other (Bld) [#/Vol] 10.4 [facility] CBC with Diffon 08-05-2023 Abs. Basophil 0.00 k/uL Normal 0.0-0.2 [facility] Comment on above: Performed By: #### C DP, BMPX #### [facility] [address] [place] [address] Improvement Analyst: Ramon Hussein MD Abs.Imm.Granulocyt e 0.10 k/uL Normal 0.00-0.30 [facility] Comment on above: Performed By: #### C DP, BMPX #### [facility] [address] [place] [address] Improvement Analyst: Ramon Hussein MD Abs.Neutrophil (Seg) 7.70 k/uL Normal 1.8-7.7 [facility] Comment on above: Performed By: #### C DP, BMPX #### [facility] [address] [place] [address] Improvement Analyst: Ramon Hussein MD Basophils/100 WBC (Bld) 0 % Normal 0-2 [facility] Comment on above: Performed By: #### C DP, BMPX #### [facility] [address] [place] [address] Improvement Analyst: Ramon Hussein MD Eosinophils (Bld) [#/Vol] 0.00 10*3/uL Normal 0.0-0.4 [facility] Comment on above: Performed By: #### C DP, BMPX #### [facility] [address] [place] [address] Improvement Analyst: Ramon Hussein MD Eosinophils/100 WBC (Bld) 0 % Low 1-4 [facility] Comment on above: Performed By: #### C DP, BMPX #### [address] [address] Improvement Analyst: Ramon Hussein MD Immature granulocytes/100 WBC (Bld) 1 % High 0 [facility] Comment on above: Performed By: #### C DP, BMPX #### [facility] [address] [place] [address] Improvement Analyst: Ramon Hussein MD Lymphocytes (Bld) [#/Vol] 1.04 10*3/uL Normal 1.0-4.8 [facility] Comment on above: Performed By: #### C DP, BMPX #### [address] [address] Improvement Analyst: Ramon Hussein MD Lymphocytes/100 WBC (Bld) 10 % Low 24-44 [facility] Comment on above: Performed By: #### C DP, BMPX #### [address] [address] Improvement Analyst: Ramon Hussein MD Monocytes (Bld) [#/Vol] 1.56 10*3/uL High 0.1-0.8 [facility] Comment on above: Performed By: #### C DP, BMPX #### [address] [address] Improvement Analyst: Ramon Hussein MD Monocytes/100 WBC (Bld) 15 % High 1-7 [facility] Comment on above: Performed By: #### C DP, BMPX #### [address] [address] Improvement Analyst: Ramon Hussein MD Morphology Jose Cruz (Bld) [Interp] Normal Normal [facility] Comment on above: Performed By: #### C DP, BMPX #### [address] [address] Improvement Analyst: Ramon Hussein MD Neutrophil (Seg) 74 % High 36-66 [facility] Comment on above: Performed By: #### C DP, BMPX #### [address] [address] Improvement Analyst: Ramon Hussein MD Erythrocyte distribution width (RBC) [Ratio] 14.4 % Normal 11.8-14.4 [facility] Comment on above: Performed By: #### C DP, BMPX #### [address] [address] Improvement Analyst: Ramon Hussein MD Hematocrit (Bld) [Volume fraction] 35.5 % Low 36.3-47.1 [facility] Comment on above: Performed By: #### C DP, BMPX #### [address] [address] Improvement Analyst: Ramon Hussein MD Hemoglobin (Bld) [Mass/Vol] 11.0 g/dL Low 11.9-15.1 [facility] Comment on above: Performed By: #### C DP, BMPX #### [address] [address] Improvement Analyst: Ramon Hussein MD MCH (RBC) [Entitic mass] 31.9 pg Normal 25.2-33.5 [facility] Comment on above: Performed By: #### C DP, BMPX #### [address] [address] Improvement Analyst: Ramon Hussein MD MCHC (RBC) [Mass/Vol] 31.0 g/dL Normal 28.4-34.8 [facility] Comment on above: Performed By: #### C DP, BMPX #### [facility] [employer] [address] [place] [address] Improvement Analyst: Ramon Hsusein MD MCV (RBC) [Entitic vol] 102.9 fL Normal 82.6-102.9 [facility] Comment on above: Performed By: #### C DP, BMPX #### [facility] [employer] [address] [place] [address] Improvement Analyst: Ramon Hussein MD NRBC Automated 0.0 per 100 WBC Normal 0.0 [facility] Comment on above: Performed By: #### C DP, BMPX #### [facility] [employer] [address] [place] [address] Improvement Analyst: Ramon Hussein MD Platelet mean volume (Bld) [Entitic vol] 9.8 fL Normal 8.1-13.5 [facility] Comment on above: Performed By: #### C DP, BMPX #### [facility] [employer] [address] [place] [address] Improvement Analyst: Ramon Hussein MD Platelets (Bld) [#/Vol] 256 10*3/uL Normal 138-453 [facility] Comment on above: Performed By: #### C DP, BMPX #### [address] [address] Improvement Analyst: Ramon Hussein MD RBC (Bld) [#/Vol] 3.45 10*6/uL Low 3.95-5.11 [facility] Comment on above: Performed By: #### C DP, BMPX #### [facility] [employer] [address] [place] [address] Improvement Analyst: Ramon Hussein MD WBC (Bld) [#/Vol] 10.4 10*3/uL Normal 3.5-11.3 [facility] Comment on above: Performed By: #### C DP, BMPX #### [employer] [address] [place] [address] Improvement Analyst: Ramon Hussein MD MR Brain WO and W contrast I Von 08-05-2023 1. No acute intracra nial abnormality. 2. 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 No intracranial mass is detected. 3. Moderate cerebral atrophy. 4. Moderate to severe chronic microvascular disease. 5. Numerous foci of susceptibility artifact within both cerebral hemispheres likely represents changes related to hypertensive microangiopathy versus amyloidosis. Small cavernomas are a less likely consideration. [facility] EXAMINATION: MRI OF THE BRAIN WITHOUT AND [...] The soft tissues demonstrate no acute abnormality. [facility] Nathanael Aguirre MD - 08/05/2023 EXAMINATION: MRI OF THE [...] Small cavernomas are a less likely consideration. [facility] Radiology Study observation (narrative) [facility] MR Brain WO and W contrast I VOrdered By: Nathanael Farrar on 08-05-2023 [facility] Work Phone: MRI BRAIN W WO CONTRASTon MRI BRAIN W WO CONTRAST EXAMINATION: MRI OF THE BRAIN WITHOUT AND [...] Small cavernomas are a less likely consideration. Interpreted by: Nathanael Farrar MD Signed by: Nathanael Farrar MD 08/05/23 Final result Normal [facility] Valproic Acid Level, Total a nd Freeon 08-05-2023 Interpretation and review of laboratory results Abnormal [facility] Valproate [Mass/Vol] 15 ug/mL Low 50 - 125 ug/mL [facility] [employer] Valproate Free [Mass/Vol] 2.0 ug/mL Low 7.0 - 23.0 ug/mL [facility] Valproate Free/Total valproate [Mass fraction] 13.3 % 5.0 - 18.4 % [facility] Valproic Acid,Fr+Toton 08-05 Valproic Acid, %Free 13.3 % Normal 5.0-18.4 [facility] Comment on above: Performed By: #### C DP, BMP #### [facility] [address] [place], [place] [id number] Improvement Analyst: Rmaon Hussein MD Valproic Acid, Free 2.0 ug/mL Low 7.0-23.0 [facility] Comment on above: Performed By: #### C DP, BMP #### [facility] [address] [place] [address] Improvement Analyst: Ramon Hussein MD Valproic Acid 15 ug/mL Low 50-125 [facility] Comment on above: Performed By: #### C DP, BMP #### [facility] [address] [place] [address] Improvement Analyst: Ramon Hussein MD Basic Metab w/rfx MGon 08-04 Anion gap [Moles/Vol] 11 mmol/L Normal 9-17 [facility] Comment on above: Performed By: #### C DP, BMP #### [facility] [address] [place] [address] Improvement Analyst: Ramon Hussein MD Calcium [Mass/Vol] 8.4 mg/dL Low 8.6-10.4 [facility] Comment on above: Performed By: #### C DP, BMP #### [facility] [address] [place] [address] Improvement Analyst: Ramon Hussein MD Chloride [Moles/Vol] 103 mmol/L Normal 98-107 [facility] Comment on above: Performed By: #### C DP, BMP #### [facility] [address] [place] [address] Improvement Analyst: Ramon Hussein MD CO2 [Moles/Vol] 24 mmol/L Normal 20-31 [facility] Comment on above: Performed By: #### C DP, BMP #### [facility] [address] [place] [address] Improvement Analyst: Ramon Hussein MD Creatinine [Mass/Vol] 1.6 mg/dL High 0.5-0.9 [facility] Comment on above: Performed By: #### C DP, BMP #### [facility] [address] [place] [address] Improvement Analyst: Ramon Hussein MD GFR/1.73 sq M.predicted among non-blacks MDRD (S/P/Bld) [Vol rate/Area] 34 mL/min/{1.73_m2} Low >60 [facility] Comment on above: Result Comment: These results are not intended for use in patients <18 years of age. eGFR results are calculated without a race factor using the 2020 CKD-EPI equation. Careful clinical correlation is recommended, particularly when comparing to results calculated using previous equations. The CKD-EPI equation is less accurate in patients with extremes of muscle mass, extra-renal metabolism of creatine, excessive creatine ingestion, or following therapy that affects renal tubular secretion. Performed By: #### C DP, BMP #### [facility] [address] [place] [address] Improvement Analyst: Ramon Hussein MD Glucose [Mass/Vol] 94 mg/dL Normal 70-99 [facility] Comment on above: Performed By: #### C DP, BMP #### [facility] [address] [place] [address] Improvement Analyst: Ramon Hussein MD Potassium [Moles/Vol] 4.0 mmol/L Normal 3.7-5.3 [facility] Comment on above: Performed By: #### C DP, BMP #### [facility] [address] [place] [address] Improvement Analyst: Ramon Hussein MD Sodium [Moles/Vol] 138 mmol/L Normal 135-144 [facility] Comment on above: Performed By: #### C DP, BMP #### [facility] [address] [place] [address] Improvement Analyst: Ramon Hussein MD Urea nitrogen [Mass/Vol] 23 mg/dL Normal 8-23 [facility] Comment on above: Performed By: #### C DP, BMP #### [facility] [address] [id number] Improvement Analyst: Ramon Hussein MD Basic Metabolic Panel w/ Ref kya to MGon 08-04-2023 Anion gap [Moles/Vol] 11 mmol/L 9 - 17 mmol/L [facility] Calcium [Mass/Vol] 8.4 mg/dL Low 8.6 - 10. 4 mg/dL [facility] Chloride [Moles/Vol] 103 mmol/L 98 - 107 mmol/L [facility] [employer] GFS [facility] CO2 [Moles/Vol] 24 mmol/L 20 - 31 mmol/L [facility] Creatinine [Mass/Vol] 1.6 mg/dL High 0.5 - 0.9 mg/dL [facility] GFR/1.73 sq M.predicted MDRD (S/P/Bld) [Vol rate/Area] 34 mL/min/{1.73_m2} Low - PINF [facility] Comment on above: These results are not intended for use in patients <18 years of age. eGFR results are calculated without a race factor using the 2020 CKD-EPI equation. Careful clinical correlation is recommended, particularly when comparing to results calculated using previous equations. The CKD-EPI equation is less accurate in patients with extremes of muscle mass, extra-renal metabolism of creatine, excessive creatine ingestion, or following therapy that affects renal tubular secretion. Glucose [Mass/Vol] 94 mg/dL 70 - 99 mg/dL [facility] Interpretation and review of laboratory results Abnormal [facility] Potassium [Moles/Vol] 4.0 mmol/L 3.7 - 5.3 mmol/L [facility] Sodium [Moles/Vol] 138 mmol/L 135 - 144 mmol/L [facility] Urea nitrogen [Mass/Vol] 23 mg/dL 8 - 23 mg/dL [facility]ITALemidsATRIUM HE[facility] STEELE CREEKDigital Development Partners [facility] CBC with Auto Differentialon 08-04-2023 Basophils (Bld) [#/Vol] 0.00 10*3/uL [facility] Basophils/100 WBC (Bld) 0 % 0 - 2 % [facility] Eosinophils (Bld) [#/Vol] 0.00 10*3/uL [facility] Eosinophils/100 WBC (Bld) 0 % Low 1 - 4 % [facility] Erythrocyte distribution width (RBC) [Ratio] 14.6 % High 11.8 - 14.4 % [facility] Hematocrit (Bld) [Volume fraction] 36.2 % Low 36.3 - 47.1 % [facility] Hemoglobin (Bld) [Mass/Vol] 11.3 g/dL Low 11.9 - 15.1 g/dL [facility] Immature granulocytes (Bld) [#/Vol] 0.00 10*3/uL [facility] Immature granulocytes/100 WBC (Bld) 0 % 0 [facility] Interpretation and review of laboratory results Abnormal [facility] Lymphocytes/100 WBC (Bld) 13 % Low 24 - 44 % [facility] Lymphocytes/100 WBC (Bld) 1.42 % [facility] MCH (RBC) [Entitic mass] 32.2 pg 25.2 - 33.5 pg [facility] MCHC (RBC) [Mass/Vol] 31.2 g/dL 28.4 - 34.8 g/dL [facility] MCV (RBC) [Entitic vol] 103.1 fL High 82.6 - 102.9 fL [facility] Monocytes/100 WBC (Bld) 13 % High 1 - 7 % [facility] Monocytes/100 WBC (Bld) 1.42 % High [facility] Morphology Jose Cruz (Bld) [Interp] ANISOCYTOSIS PRESENT [facility] Morphology Jose Cruz (Bld) [Interp] MACROCYTOSIS PRESENT [facility] Neutrophils/100 WBC (Bld) 74 % High 36 - 66 % [facility] Nucleated RBC/100 WBC (Bld) [Ratio] 0.0 % 0.0 per 100 WBC [facility] Platelet mean volume (Bld) [Entitic vol] 9.6 fL 8.1 - 13.5 fL [facility] Platelets (Bld) [#/Vol] 267 10*3/uL [facility] RBC (Bld) [#/Vol] 3.51 10*6/uL Low 3.95 - 5.1 1 m/uL [facility] Segmented neutrophils/100 WBC (Bld) 8.06 % High [facility] WBC other (Bld) [#/Vol] 10.9 [facility] CBC with Diffon 08-04-2023 Abs. Basophil 0.00 k/uL Normal 0.0-0.2 [facility] Comment on above: Performed By: #### C DP, BMP #### [address] [address] Improvement Analyst: Ramon Hussein MD Abs.Imm.Granulocyt e 0.00 k/uL Normal 0.00-0.30 [facility] Comment on above: Performed By: #### C DP, BMP #### [facility] [address] [place] [address] Improvement Analyst: Ramon Hussein MD Abs.Neutrophil (Seg) 8.06 k/uL High 1.8-7.7 [facility] Comment on above: Performed By: #### C DP, BMP #### [address] [address] Improvement Analyst: Ramon Hussein MD Basophils/100 WBC (Bld) 0 % Normal 0-2 [facility] Comment on above: Performed By: #### C DP, BMP #### [facility] [employer] [address] [place] [address] Improvement Analyst: Ramon Hussein MD Eosinophils (Bld) [#/Vol] 0.00 10*3/uL Normal 0.0-0.4 [facility] Comment on above: Performed By: #### C DP, BMP #### [facility] [address] [place] [address] Improvement Analyst: Ramon Hussein MD Eosinophils/100 WBC (Bld) 0 % Low 1-4 [facility] Comment on above: Performed By: #### C DP, BMP #### [address] [address] Improvement Analyst: Ramon Hussein MD Immature granulocytes/100 WBC (Bld) 0 % Normal 0 [facility] Comment on above: Performed By: #### C DP, BMP #### [address] [address] Improvement Analyst: Ramon Hussein MD Lymphocytes (Bld) [#/Vol] 1.42 10*3/uL Normal 1.0-4.8 [facility] Comment on above: Performed By: #### C DP, BMP #### [address] [address] Improvement Analyst: Ramon Hussein MD Lymphocytes/100 WBC (Bld) 13 % Low 24-44 [facility] Comment on above: Performed By: #### C DP, BMP #### [address] [address] Improvement Analyst: Ramon Hussein MD Monocytes (Bld) [#/Vol] 1.42 10*3/uL High 0.1-0.8 [facility] Comment on above: Performed By: #### C DP, BMP #### [address] [address] Improvement Analyst: Ramon Hussein MD Monocytes/100 WBC (Bld) 13 % High 1-7 [facility] Comment on above: Performed By: #### C DP, BMP #### [address] [address] Improvement Analyst: Ramon Hussein MD Morphology Jose Cruz (Bld) [Interp] ANISOCYTOSIS PRESENT Normal [facility] Comment on above: Result Comment: MACR OCYTOSIS PRESENT Performed By: #### C DP, BMP #### [address] [place] [address] Improvement Analyst: Ramon Hussein MD Neutrophil (Seg) 74 % High 36-66 [facility] Comment on above: Performed By: #### C DP, BMP #### [address] [address] Improvement Analyst: Ramon Hussein MD Erythrocyte distribution width (RBC) [Ratio] 14.6 % High 11.8-14.4 [facility] Comment on above: Performed By: #### C DP, BMP #### [facility] [address] [place] [address] Improvement Analyst: Ramon Hussein MD Hematocrit (Bld) [Volume fraction] 36.2 % Low 36.3-47.1 [facility] Comment on above: Performed By: #### C DP, BMP #### [facility] [address] [place] [address] Improvement Analyst: Ramon Hussein MD Hemoglobin (Bld) [Mass/Vol] 11.3 g/dL Low 11.9-15.1 [facility] Comment on above: Performed By: #### C DP, BMP #### [facility] [address] [place] [address] Improvement Analyst: Ramon Hussein MD MCH (RBC) [Entitic mass] 32.2 pg Normal 25.2-33.5 [facility] Comment on above: Performed By: #### C DP, BMP #### [facility] [address] [place] [address] Improvement Analyst: Ramon Hussein MD MCHC (RBC) [Mass/Vol] 31.2 g/dL Normal 28.4-34.8 [facility] Comment on above: Performed By: #### C DP, BMP #### [facility] [address] [place] [address] Improvement Analyst: Ramon Hussein MD MCV (RBC) [Entitic vol] 103.1 fL High 82.6-102.9 [facility] Comment on above: Performed By: #### C DP, BMP #### [address] [address] Improvement Analyst: Ramon Hussein MD NRBC Automated 0.0 per 100 WBC Normal 0.0 [facility] Comment on above: Performed By: #### C DP, BMP #### [address] [address] Improvement Analyst: Ramon Hussein MD Platelet mean volume (Bld) [Entitic vol] 9.6 fL Normal 8.1-13.5 [facility] Comment on above: Performed By: #### C DP, BMP #### [address] [address] Improvement Analyst: Ramon Hussein MD Platelets (Bld) [#/Vol] 267 10*3/uL Normal 138-453 [facility] Comment on above: Performed By: #### C DP, BMP #### [address] [address] Improvement Analyst: Ramon Hussein MD RBC (Bld) [#/Vol] 3.51 10*6/uL Low 3.95-5.11 [facility] Comment on above: Performed By: #### C DP, BMP #### [address] [address] Improvement Analyst: Ramon Hussein MD WBC (Bld) [#/Vol] 10.9 10*3/uL Normal 3.5-11.3 [facility] Comment on above: Performed By: #### C DP, BMP #### [address] [address] Improvement Analyst: Ramon Hussein MD COVID-19, Rapidon 08-04-2023 SARS-CoV-2 (COVID-19) RdRp gene ESTELA+probe Ql (Resp) Not detected Not Detected [facility] Comment on above: Rapid NAAT: The specimen is NEGATIVE for SARS-CoV-2, the novel coronavirus associated with COVID-19. The ID NOW COVID-19 assay is designed to detect the virus that causes COVID-19 in patients with signs and symptoms of infection who are suspected of COVID-19. An individual without symptoms of COVID-19 and who is not shedding SARS-CoV-2 virus would expect to have a negative (not detected) result in this assay. Negative results should be treated as presumptive and, if inconsistent with clinical signs and symptoms or necessary for patient management, should be tested with an alternative molecular assay. Negative results do not preclude SARS-CoV-2 infection and should not be used as the sole basis for patient management decisions. Fact sheet for Healthcare Providers: https://www.fda.gov/media/616854/download Fact sheet for Patients: https://www.fda.gov/media/632527/download Methodology: Isothermal Nucleic Acid Amplification Specimen Description .NASOPHARYNGEAL SWAB [facility] EEGon 08-04-2023 Carlo Lee MD 08/04/2023 2:55 PM EEG REPORT Patient: Bhumika Wheatley Age: 73 y.o. Referring Provider: No ref. provider found History: This routine 30 minute scalp EEG was recorded with video- monitoring for a 73 y.o.. female who presented with encephalopathy. This EEG was performed to evaluate for focal and epileptiform abnormalities. Bhumika Wheatley Current Facility-Administered Medications Medication Dose Route Frequency Provider Last Rate Last Admin amLODIPine (NORVASC) tablet 10 mg 10 mg Oral Daily Patricia Padilla MD 10 mg at 08/04/23 0735 carvedilol (COREG) tablet 6.25 mg 6.25 mg Oral BID Patricia Padilla MD 6.25 mg at 08/04/23 0735 citalopram (CELEXA) tablet 10 mg 10 mg Oral Daily Patricia Padilla MD 10 mg at 08/04/23 0730 donepezil (ARICEPT) tablet 10 mg 10 mg Oral Nightly Patricia Padilla MD levothyroxine (SYNTHROID) tablet 88 mcg 88 mcg Oral Daily Patricia Padilla MD 88 mcg at 08/04/23 0824 divalproex (DEPAKOTE) DR tablet 500 mg 500 mg Oral BID Yesy Arzate MD [START ON 08/05/2023] amantadine (SYMMETREL) capsule 100 mg 100 mg Oral Daily Patricia Padilla MD sodium chloride flush 0.9 % injection 5-40 mL 5-40 mL IntraVENous 2 times per day Patricia Padilla MD 10 mL at 08/04/23 0731 sodium chloride flush 0.9 % injection 5-40 mL 5-40 mL IntraVENous PRN Patricia Padilla MD 0.9 % sodium chloride infusion IntraVENous PRN Patricia Padilla MD LORazepam (ATIVAN) injection 4 mg 4 mg IntraVENous Q5 Min PRN Patricia Padilla MD enoxaparin Sodium (LOVENOX) injection 30 mg 30 mg SubCUTAneous Daily Patricia Padilla MD 30 mg at 08/04/23 0735 ondansetron (ZOFRAN-ODT) disintegrating tablet 4 mg 4 mg Oral Q8H PRN Patricia Padilla MD Or ondansetron (ZOFRAN) injection 4 mg 4 mg IntraVENous Q6H PRN Patricia Padilla MD polyethylene glycol (GLYCOLAX) packet 17 g 17 g Oral Daily PRN Patricia Padilla MD acetaminophen (TYLENOL) tablet 650 mg 650 mg Oral Q6H PRN Patricia Padilla MD Or acetaminophen (TYLENOL) suppository 650 mg 650 mg Rectal Q6H PRN Patricia Padilla MD Technical Description: This is a 21 channel digital EEG recording with time-locked video. Electrodes were placed in accordance with the 10-20 International System of Electrode Placement. Single lead EKG monitoring as well as temporal electrodes were included. The patient was not sleep deprived. This recording was obtained during wakefulness. EEG Description: The dominant background activity during maximal recorded wakefulness consisted of bioccipitally dominant 9-10 Hz, 25-35 uV symmetric, regular activity that was reactive to eye opening. During drowsiness, the background rhythm waxed and waned and there were periods of slowing. Photic stimulation - stepwise photic stimulation at 2-30 Hz was performed and there was a biposterior, symmetric, driving response. Hyperventilation - was not preformed. No abnormalities were activated by photic stimulation The EKG channel demonstrated a normal sinus rhythm. Interpretation This EEG was normal in wakefulness and sleep. Clinical correlation This EEG was normal. No focal or epileptiform abnormalities were seen. CARLO LEE MD Diplomate, [place] Board of Psychiatry and Neurology Diplomate, [place] Board of Clinical Neurophysiology Diplomate, [place] Board of Epilepsy [facility] EEGOrdered By: Carlo Lee on 08-04-2023 [facility] Work Phone: Keppraon 08-04-2023 KEPP 23 ug/mL Normal [facility] Comment on above: Result Comment: A reference range for Keppra has not been well established. The proposed therapeutic range for seizure control is 6-46 ug/mL. Measurement of Levetiracetam (Keppra) can be elevated due to the presence of both Keppra and Brivaracetam (Briviact) in the patient's system. The medications are structurally similar thus cross reactivity is possible. Pharmacokinetics of Keppra are affected by renal function. The relationship between serum concentrations and toxicity is not known. Performed By: #### C , [facility] #### [facility] [address] [place] [address] Improvement Analyst: Ramon Hussein MD Levetiracetam Levelon 2022 levETIRAcetam [Mass/Vol] 23 ug/mL [facility] Comment on above: A reference range for Keppra has not been well established. The proposed therapeutic range for seizure control is 6-46 ug/mL. Measurement of Levetiracetam (Keppra) can be elevated due to the presence of both Keppra and Brivaracetam (Briviact) in the patient's system. The medications are structurally similar thus cross reactivity is possible. Pharmacokinetics of Keppra are affected by renal function. The relationship between serum concentrations and toxicity is not known. [facility] LUNG VENT/PERFUSION (VQ)o n 08-04-2023 NM LUNG VENT/PERFUSION (VQ) EXAMINATION: NUCLEAR MEDICINE VENTILATION PERFUSION SCAN. 08/04/2023 TECHNIQUE: 45 millicuries aerosolized Tc99m DTPA was administered via mask prior to planar imaging of the lungs in multiple projections. Then, 6.1 millicuries of Tc 99m MAA was administered intravenously prior to planar imaging of the lungs in similar projections. COMPARISON: Chest radiograph 08/03/2023. HISTORY: ORDERING SYSTEM PROVIDED HISTORY: eval pe TECHNOLOGIST PROVIDED HISTORY: eval pe Decision Support Exception - unselect if not a suspected or confirmed emergency medical condition->Emergency Medical Condition (MA) Reason for Exam: eval pe FINDINGS: PERFUSION: Heterogeneous distribution of radiotracer. Overall the perfusion is improved compared to the ventilation. No unmatched segmental perfusion defects. VENTILATION: Heterogeneous distribution of radiotracer. CHEST RADIOGRAPH: No focal areas of consolidation or significant effusions on recent chest radiograph. IMPRESSION: Very low probability for pulmonary embolism. Interpreted by: Kulwinder Kim MD Signed by: Kulwinder Kim MD 08/04/23 Final result Normal [facility] Lung Ventilation and Perf usionon 08-04-2023 Very low probability for pulmonary embolism. PN RIS CONSOLIDATED EXAMINATION: NUCLEAR MEDICINE VENTILATION PERFUSION SCAN. 08/04/2023 TECHNIQUE: 45 millicuries aerosolized Tc99m DTPA was administered via mask prior to planar imaging of the lungs in multiple projections. Then, 6.1 millicuries of Tc 99m MAA was administered intravenously prior to planar imaging of the lungs in similar projections. COMPARISON: Chest radiograph 08/03/2023. HISTORY: ORDERING SYSTEM PROVIDED HISTORY: eval pe TECHNOLOGIST PROVIDED HISTORY: eval pe Decision Support Exception - unselect if not a suspected or confirmed emergency medical condition->Emergency Medical Condition (MA) Reason for Exam: eval pe FINDINGS: PERFUSION: Heterogeneous distribution of radiotracer. Overall the perfusion is improved compared to the ventilation. No unmatched segmental perfusion defects. VENTILATION: Heterogeneous distribution of radiotracer. CHEST RADIOGRAPH: No focal areas of consolidation or significant effusions on recent chest radiograph. [facility] Kulwinder Carmona MD - 08/04/2023 EXAMINATION: NUCLEAR MEDICINE VENTILATION PERFUSION SCAN. 08/04/2023 TECHNIQUE: 45 millicuries aerosolized Tc99m DTPA was administered via mask prior to planar imaging of the lungs in multiple projections. Then, 6.1 millicuries of Tc 99m MAA was administered intravenously prior to planar imaging of the lungs in similar projections. COMPARISON: Chest radiograph 08/03/2023. HISTORY: ORDERING SYSTEM PROVIDED HISTORY: eval pe TECHNOLOGIST PROVIDED HISTORY: eval pe Decision Support Exception - unselect if not a suspected or confirmed emergency medical condition->Emergency Medical Condition (MA) Reason for Exam: eval pe FINDINGS: PERFUSION: Heterogeneous distribution of radiotracer. Overall the perfusion is improved compared to the ventilation. No unmatched segmental perfusion defects. VENTILATION: Heterogeneous distribution of radiotracer. CHEST RADIOGRAPH: No focal areas of consolidation or significant effusions on recent chest radiograph. IMPRESSION: Very low probability for pulmonary embolism. [facility] Radiology Study observation (narrative) [facility] NM Lung Ventilation and Perf usionOrdered By: Kulwinder Kim on 08-04-2023 [facility] Work Phone: PREVIOUS SPECIMENon 08-04-20 23 [facility] [id number] 08-04-2023 SARS-CoV-2 (COVID-19) RNA ESTELA+probe Ql (Unsp spec) Not detected Normal [facility] Comment on above: Result Comment: Rapid NAAT: The specimen is NEGATIVE for SARS-CoV-2, the novel coronavirus associated with COVID-19. The ID NOW COVID-19 assay is designed to detect the virus that causes COVID-19 in patients with signs and symptoms of infection who are suspected of COVID-19. An individual without symptoms of COVID-19 and who is not shedding SARS-CoV-2 virus would expect to have a negative (not detected) result in this assay. Negative results should be treated as presumptive and, if inconsistent with clinical signs and symptoms or necessary for patient management, should be tested with an alternative molecular assay. Negative results do not preclude SARS-CoV-2 infection and should not be used as the sole basis for patient management decisions. Fact sheet for Healthcare Providers: https://www.fda.gov/media/811301/download Fact sheet for Patients: https://www.fda.gov/media/531917/download Methodology: Isothermal Nucleic Acid Amplification Performed By: #### C OVRB #### [facility] [address] [place] [address] [phone] Improvement Analyst: Ramon Hussein MD Specimen Rejectionon 023 Reason for rejection Unable to perform testing: Specimen quantity not sufficient. [facility] Comment on above: Performed By: #### C DP, BMP #### [facility] [address] [place] [address] [phone] Improvement Analyst: Ramon Hussein MD Source of sample .BLOOD [facility] Comment on above: Performed By: #### C DP, BMP #### [facility] [address] [place] [id number] Improvement Analyst: Ramon Hussein MD Test ordered VALPFT [facility] Comment on above: Performed By: #### C DP, BMP #### [facility] [address] [place] [address] [phone] Improvement Analyst: Ramon Hussein MD Valproic Acid Level, Total a nd Freeon 08-04-2023 Interpretation and review of laboratory results Abnormal [employer] Valproate [Mass/Vol] 41 ug/mL Low 50 - 125 ug/mL [employer] Valproate Free [Mass/Vol] 11.6 ug/mL 7.0 - 23.0 ug/mL [employer] Valproate Free/Total valproate [Mass fraction] 28.3 % High 5.0 - 18.4 % [employer] Valproic Acid,Fr+Toton 08-04 Valproic Acid 41 ug/mL Low 50-125 [facility] Comment on above: Performed By: #### P E #### [facility] [address] [place] [id number] Improvement Analyst: Ramon Hussein MD Valproic Acid, %Free 28.3 % High 5.0-18.4 [facility] Comment on above: Performed By: #### P E #### [facility] [employer] [address] [place] [address] [phone] Improvement Analyst: Ramon Hussein MD Valproic Acid, Free 11.6 ug/mL Normal 7.0-23.0 [facility] Comment on above: Performed By: #### P E #### [facility] [employer] [address] [place] [address] [id number] Improvement Analyst: Ramon Hussein MD Brain Natri. Peptideon 08-03 Natriuretic peptide B (Bld) [Mass/Vol] 2414 pg/mL High <300 [facility] Comment on above: Result Comment: An age-independent cutoff point of 300 pg/ml has a 98% negative predictive value excluding acute heart failure. Performed By: #### C DP, BMPX #### [facility] [employer] [address] [place] [address] [phone] Improvement Analyst: Ramon Hussein MD Brain Natriuretic Peptideon 08-03-2023 Natriuretic peptide B (Bld) [Mass/Vol] 2414 pg/mL High NINF - 300 pg/mL [employer] Comment on above: An age-independent cutoff point of 300 pg/ml has a 98% negative predictive value excluding acute heart failure. CBC with Auto Differentialon 08-03-2023 Basophils (Bld) [#/Vol] 0.00 10*3/uL [facility] Basophils/100 WBC (Bld) 0 % 0 - 2 % [facility] [employer] Eosinophils (Bld) [#/Vol] 0.00 10*3/uL [employer] Eosinophils/100 WBC (Bld) 0 % Low 1 - 4 % [facility] Erythrocyte distribution width (RBC) [Ratio] 14.5 % High 11.8 - 14.4 % [facility] Hematocrit (Bld) [Volume fraction] 39.3 % 36.3 - 47.1 % [facility] Hemoglobin (Bld) [Mass/Vol] 12.1 g/dL 11.9 - 15.1 g/dL [facility] Immature granulocytes (Bld) [#/Vol] 0.00 10*3/uL [facility] Immature granulocytes/100 WBC (Bld) 0 % 0 [facility] Interpretation and review of laboratory results Abnormal [facility] Lymphocytes/100 WBC (Bld) 9 % Low 24 - 44 % [facility] Lymphocytes/100 WBC (Bld) 1.48 % [facility] MCH (RBC) [Entitic mass] 31.8 pg 25.2 - 33.5 pg [facility] MCHC (RBC) [Mass/Vol] 30.8 g/dL 28.4 - 34.8 g/dL [facility] MCV (RBC) [Entitic vol] 103.4 fL High 82.6 - 102.9 fL [facility] Monocytes/100 WBC (Bld) 12 % High 1 - 7 % [facility] Monocytes/100 WBC (Bld) 1.97 % High [facility] Morphology Jose Cruz (Bld) [Interp] ANISOCYTOSIS PRESENT [facility] Morphology Jose Cruz (Bld) [Interp] MACROCYTOSIS PRESENT [facility] Neutrophils/100 WBC (Bld) 79 % High 36 - 66 % [facility] Nucleated RBC/100 WBC (Bld) [Ratio] 0.0 % 0.0 per 100 WBC [facility] Platelet mean volume (Bld) [Entitic vol] 9.5 fL 8.1 - 13.5 fL [facility] Platelets (Bld) [#/Vol] 290 10*3/uL [facility] RBC (Bld) [#/Vol] 3.80 10*6/uL Low 3.95 - 5.1 1 m/uL [facility] Segmented neutrophils/100 WBC (Bld) 12.95 % High [facility] WBC other (Bld) [#/Vol] 16.4 High [facility] CBC with Diffon 08-03-2023 Abs. Basophil 0.00 k/uL Normal 0.0-0.2 [facility] Comment on above: Performed By: #### B ASPHALT PAVER, CDP, CP, TROPI, LACTIC, DIME #### [facility] [employer] [address] [place] [address] [id number] Improvement Analyst: Ramon Hussein MD Abs.Imm.Granulocyt e 0.00 k/uL Normal 0.00-0.30 [facility] Comment on above: Performed By: #### B ASPHALT PAVER, CDP, CP, TROPI, LACTIC, DIME #### [facility] [employer] [address] [place] [address] [id number] Improvement Analyst: Ramon Hussein MD Abs.Neutrophil (Seg) 12.95 k/uL High 1.8-7.7 [facility] Comment on above: Performed By: #### B ASPHALT PAVER, CDP, CP, TROPI, LACTIC, DIME #### [facility] [employer] [address] [place] [address] [id number] Improvement Analyst: Ramon Hussein MD Basophils/100 WBC (Bld) 0 % Normal 0-2 [facility] Comment on above: Performed By: #### B ASPHALT PAVER, CDP, CP, TROPI, LACTIC, DIME #### [facility] [employer] [address] [place] [address] [phone] Improvement Analyst: Ramon Hussein MD Eosinophils (Bld) [#/Vol] 0.00 10*3/uL Normal 0.0-0.4 [facility] Comment on above: Performed By: #### B ASPHALT PAVER, CDP, CP, TROPI, LACTIC, DIME #### [facility] [employer] [address] [place] [address] [id number] Improvement Analyst: Ramon Hussein MD Eosinophils/100 WBC (Bld) 0 % Low 1-4 [facility] Comment on above: Performed By: #### B ASPHALT PAVER, CDP, CP, TROPI, LACTIC, DIME #### [address] [address] Improvement Analyst: Ramon Hussein MD Immature granulocytes/100 WBC (Bld) 0 % Normal 0 [facility] Comment on above: Performed By: #### B ASPHALT PAVER, CDP, CP, TROPI, LACTIC, DIME #### [address] [address] Improvement Analyst: Ramon Hussein MD Lymphocytes (Bld) [#/Vol] 1.48 10*3/uL Normal 1.0-4.8 [facility] Comment on above: Performed By: #### B ASPHALT PAVER, CDP, CP, TROPI, LACTIC, DIME #### [address] [address] Improvement Analyst: Ramon Hussein MD Lymphocytes/100 WBC (Bld) 9 % Low 24-44 [facility] Comment on above: Performed By: #### B ASPHALT PAVER, CDP, CP, TROPI, LACTIC, DIME #### [address] [address] Improvement Analyst: Ramon Hussein MD Monocytes (Bld) [#/Vol] 1.97 10*3/uL High 0.1-0.8 [facility] Comment on above: Performed By: #### B ASPHALT PAVER, CDP, CP, TROPI, LACTIC, DIME #### [address] [address] Improvement Analyst: Ramon Hussein MD Monocytes/100 WBC (Bld) 12 % High 1-7 [facility] Comment on above: Performed By: #### B ASPHALT PAVER, CDP, CP, TROPI, LACTIC, DIME #### [address] [address] Improvement Analyst: Ramon Hussein MD Morphology Jose Cruz (Bld) [Interp] ANISOCYTOSIS PRESENT Normal [facility] Comment on above: Result Comment: MACR OCYTOSIS PRESENT Performed By: #### B ASPHALT PAVER, CDP, CP, TROPI, LACTIC, DIME #### [address] [address] Improvement Analyst: Ramon Hussein MD Neutrophil (Seg) 79 % High 36-66 [facility] Comment on above: Performed By: #### B ASPHALT PAVER, CDP, CP, TROPI, LACTIC, DIME #### [address] [address] Improvement Analyst: Ramon Hussein MD Erythrocyte distribution width (RBC) [Ratio] 14.5 % High 11.8-14.4 [facility] Comment on above: Performed By: #### B ASPHALT PAVER, CDP, CP, TROPI, LACTIC, DIME #### [address] [address] Improvement Analyst: Ramon Hussein MD Hematocrit (Bld) [Volume fraction] 39.3 % Normal 36.3-47.1 [facility] Comment on above: Performed By: #### B ASPHALT PAVER, CDP, CP, TROPI, LACTIC, DIME #### [address] [address] Improvement Analyst: Ramon Hussein MD Hemoglobin (Bld) [Mass/Vol] 12.1 g/dL Normal 11.9-15.1 [facility] Comment on above: Performed By: #### B ASPHALT PAVER, CDP, CP, TROPI, LACTIC, DIME #### [address] [address] Improvement Analyst: Ramon Hussein MD MCH (RBC) [Entitic mass] 31.8 pg Normal 25.2-33.5 [facility] Comment on above: Performed By: #### B ASPHALT PAVER, CDP, CP, TROPI, LACTIC, DIME #### [address] [address] Improvement Analyst: Ramon Hussein MD MCHC (RBC) [Mass/Vol] 30.8 g/dL Normal 28.4-34.8 [facility] Comment on above: Performed By: #### B ASPHALT PAVER, CDP, CP, TROPI, LACTIC, DIME #### [address] [address] Improvement Analyst: Ramon Hussein MD MCV (RBC) [Entitic vol] 103.4 fL High 82.6-102.9 [facility] Comment on above: Performed By: #### B ASPHALT PAVER, CDP, CP, TROPI, LACTIC, DIME #### [address] [address] Improvement Analyst: Ramon Hussein MD NRBC Automated 0.0 per 100 WBC Normal 0.0 [facility] Comment on above: Performed By: #### B ASPHALT PAVER, CDP, CP, TROPI, LACTIC, DIME #### [address] [address] Improvement Analyst: Ramon Hussein MD Platelet mean volume (Bld) [Entitic vol] 9.5 fL Normal 8.1-13.5 [facility] Comment on above: Performed By: #### B ASPHALT PAVER, CDP, CP, TROPI, LACTIC, DIME #### [address] [address] Improvement Analyst: Ramon Hussein MD Platelets (Bld) [#/Vol] 290 10*3/uL Normal 138-453 [facility] Comment on above: Performed By: #### B ASPHALT PAVER, CDP, CP, TROPI, LACTIC, DIME #### [address] [address] Improvement Analyst: Ramon Hussein MD RBC (Bld) [#/Vol] 3.80 10*6/uL Low 3.95-5.11 [facility] Comment on above: Performed By: #### B ASPHALT PAVER, CDP, CP, TROPI, LACTIC, DIME #### [facility] [address], [place] [id number] Improvement Analyst: Ramon Hussein MD WBC (Bld) [#/Vol] 16.4 10*3/uL High 3.5-11.3 [facility] Comment on above: Performed By: #### B ASPHALT PAVER, CDP, CP, TROPI, LACTIC, DIME #### [facility] [address], [place] [id number] Improvement Analyst: Ramon Hussein MD [facility] 08-03-2023 Albumin [Mass/Vol] 3.0 g/dL Low 3.5 - 5.2 g/dL [facility] Albumin/Globulin [Mass ratio] 0.7 {ratio} Low 1.0 - 2.5 [facility] ALP [Catalytic activity/Vol] 69 U/L 35 - 104 U/L [facility] Comment on above: SPECIMEN SLIGHTLY HE MOLYZED, RESULTS MAY BE ADVERSELY AFFECTED. ALT [Catalytic activity/Vol] 11 U/L 5 - 33 U/L [facility] Comment on above: SPECIMEN SLIGHTLY HE MOLYZED, RESULTS MAY BE ADVERSELY AFFECTED. Anion gap [Moles/Vol] 13 mmol/L 9 - 17 mmol/L [facility] AST [Catalytic activity/Vol] 17 U/L NINF - 32 U/L [facility] Comment on above: SPECIMEN SLIGHTLY HE MOLYZED, RESULTS MAY BE ADVERSELY AFFECTED. Bilirubin [Mass/Vol] 0.3 mg/dL 0.3 - 1.2 mg/dL [facility] Calcium [Mass/Vol] 8.7 mg/dL 8.6 - 10. 4 mg/dL [facility] Chloride [Moles/Vol] 102 mmol/L 98 - 107 mmol/L [facility] CO2 [Moles/Vol] 24 mmol/L 20 - 31 mmol/L [facility] Creatinine [Mass/Vol] 1.8 mg/dL High 0.5 - 0.9 mg/dL [facility] GFR/1.73 sq M.predicted MDRD (S/P/Bld) [Vol rate/Area] 29 mL/min/{1.73_m2} Low - PINF [facility] Comment on above: These results are not intended for use in patients <18 years of age. eGFR results are calculated without a race factor using the 2020 CKD-EPI equation. Careful clinical correlation is recommended, particularly when comparing to results calculated using previous equations. The CKD-EPI equation is less accurate in patients with extremes of muscle mass, extra-renal metabolism of creatine, excessive creatine ingestion, or following therapy that affects renal tubular secretion. Glucose [Mass/Vol] 95 mg/dL 70 - 99 mg/dL [facility] [employer] Interpretation and review of laboratory results Abnormal [facility] [employer] Potassium [Moles/Vol] 4.3 mmol/L 3.7 - 5.3 mmol/L [facility] Comment on above: SPECIMEN SLIGHTLY HE MOLYZED, RESULTS MAY BE ADVERSELY AFFECTED. Protein [Mass/Vol] 7.1 g/dL 6.4 - 8.3 g/dL [facility] Sodium [Moles/Vol] 139 mmol/L 135 - 144 mmol/L [facility] Urea nitrogen [Mass/Vol] 26 mg/dL High 8 - 23 mg/dL [facility] CERVICAL SPINE WO CONTRAS Ton 08-03-2023 CT CERVICAL SPINE WO CONTRAST EXAMINATION: CT OF THE CERVICAL SPINE WITHOUT CONTRAST 08/03/2023 3:48 pm TECHNIQUE: CT of the cervical spine was performed without the administration of intravenous contrast. Multiplanar reformatted images are provided for review. Automated exposure control, iterative reconstruction, and/or weight based adjustment of the mA/kV was utilized to reduce the radiation dose to as low as reasonably achievable. COMPARISON: None. HISTORY: ORDERING SYSTEM PROVIDED HISTORY: fall TECHNOLOGIST PROVIDED HISTORY: fall Decision Support Exception - unselect if not a suspected or confirmed emergency medical condition->Emergency Medical Condition (MA) FINDINGS: BONES/ALIGNMENT: There is no acute fracture or traumatic malalignment. DEGENERATIVE CHANGES: Mild multilevel disc height loss and endplate osteophyte formation greatest at C5-6 and C6-7. No appreciable high-grade bony spinal canal stenosis. Facet and uncovertebral arthropathy at C5-6 and C6-7. Neural foraminal narrowing is moderate to severe bilaterally at C5-6 and mild on the left at C6-7. SOFT TISSUES: There is no prevertebral soft tissue swelling. Prior thyroidectomy changes with surgical clips in place. IMPRESSION: No acute cervical spine fracture or traumatic subluxation. Interpreted by: Lee Ann Washburn MD Signed by: Lee Ann Washburn MD 08/03/23 Final result Normal [facility] CT Cervical spine WO contras ton 08-03-2023 No acute cervical sp ine fracture or traumatic subluxation. [facility] EXAMINATION: CT OF THE CERVICAL SPINE WITHOUT CONTRAST 08/03/2023 3:48 pm TECHNIQUE: CT of the cervical spine was performed without the administration of intravenous contrast. Multiplanar reformatted images are provided for review. Automated exposure control, iterative reconstruction, and/or weight based adjustment of the mA/kV was utilized to reduce the radiation dose to as low as reasonably achievable. COMPARISON: None. HISTORY: ORDERING SYSTEM PROVIDED HISTORY: fall TECHNOLOGIST PROVIDED HISTORY: fall Decision Support Exception - unselect if not a suspected or confirmed emergency medical condition->Emergency Medical Condition (MA) FINDINGS: BONES/ALIGNMENT: There is no acute fracture or traumatic malalignment. DEGENERATIVE CHANGES: Mild multilevel disc height loss and endplate osteophyte formation greatest at C5-6 and C6-7. No appreciable high-grade bony spinal canal stenosis. Facet and uncovertebral arthropathy at C5-6 and C6-7. Neural foraminal narrowing is moderate to severe bilaterally at C5-6 and mild on the left at C6-7. SOFT TISSUES: There is no prevertebral soft tissue swelling. Prior thyroidectomy changes with surgical clips in place. [facility] Lee Ann Washburn MD - 08/03/2023 EXAMINATION: CT OF THE CERVICAL SPINE WITHOUT CONTRAST 08/03/2023 3:48 pm TECHNIQUE: CT of the cervical spine was performed without the administration of intravenous contrast. Multiplanar reformatted images are provided for review. Automated exposure control, iterative reconstruction, and/or weight based adjustment of the mA/kV was utilized to reduce the radiation dose to as low as reasonably achievable. COMPARISON: None. HISTORY: ORDERING SYSTEM PROVIDED HISTORY: fall TECHNOLOGIST PROVIDED HISTORY: fall Decision Support Exception - unselect if not a suspected or confirmed emergency medical condition->Emergency Medical Condition (MA) FINDINGS: BONES/ALIGNMENT: There is no acute fracture or traumatic malalignment. DEGENERATIVE CHANGES: Mild multilevel disc height loss and endplate osteophyte formation greatest at C5-6 and C6-7. No appreciable high-grade bony spinal canal stenosis. Facet and uncovertebral arthropathy at C5-6 and C6-7. Neural foraminal narrowing is moderate to severe bilaterally at C5-6 and mild on the left at C6-7. SOFT TISSUES: There is no prevertebral soft tissue swelling. Prior thyroidectomy changes with surgical clips in place. IMPRESSION: No acute cervical spine fracture or traumatic subluxation. [facility] CT Cervical spine WO contras tOrdered By: Lee Ann Washburn on 08-03-2023 [facility] Work Phone: CT HEAD WO CONTRASTon 2022 CT HEAD WO CONTRAST EXAMINATION: CT OF THE HEAD WITHOUT CONTRAST 08/03/2023 3:48 pm TECHNIQUE: CT of the head was performed without the administration of intravenous contrast. Automated exposure control, iterative reconstruction, and/or weight based adjustment of the mA/kV was utilized to reduce the radiation dose to as low as reasonably achievable. COMPARISON: CT head 07/18/2023 HISTORY: ORDERING SYSTEM PROVIDED HISTORY: fall, L [facility] 05/07 TECHNOLOGIST PROVIDED HISTORY: fall, L [facility] 05/07 Decision Support Exception - unselect if not a suspected or confirmed emergency medical condition->Emergency Medical Condition (MA) FINDINGS: BRAIN/VENTRICLES: There is no acute intracranial hemorrhage, mass effect or midline shift. No abnormal extra-axial fluid collection. The barr-white differentiation is maintained without evidence of an acute infarct. There is no evidence of hydrocephalus. Left frontal encephalomalacia changes are seen. ORBITS: The visualized portion of the orbits demonstrate no acute abnormality. SINUSES: The visualized paranasal sinuses and mastoid air cells demonstrate no acute abnormality. SOFT TISSUES/SKULL: No acute abnormality of the visualized skull or soft tissues. IMPRESSION: No acute intracranial abnormality. Stable left frontal encephalomalacia. Interpreted by: Shemar Thomas MD Signed by: Shemar Thomas MD 08/03/23 Final result Normal [facility] CT Head WO contraston 2022 No acute intracrania l abnormality. Stable left frontal encephalomalacia. [facility] EXAMINATION: CT OF THE HEAD WITHOUT CONTRAST 08/03/2023 3:48 pm TECHNIQUE: CT of the head was performed without the administration of intravenous contrast. Automated exposure control, iterative reconstruction, and/or weight based adjustment of the mA/kV was utilized to reduce the radiation dose to as low as reasonably achievable. COMPARISON: CT head 07/18/2023 HISTORY: ORDERING SYSTEM PROVIDED HISTORY: fall, L [facility] 05/07 TECHNOLOGIST PROVIDED HISTORY: fall, L [facility] 05/07 Decision Support Exception - unselect if not a suspected or confirmed emergency medical condition->Emergency Medical Condition (MA) FINDINGS: BRAIN/VENTRICLES: There is no acute intracranial hemorrhage, mass effect or midline shift. No abnormal extra-axial fluid collection. The barr-white differentiation is maintained without evidence of an acute infarct. There is no evidence of hydrocephalus. Left frontal encephalomalacia changes are seen. ORBITS: The visualized portion of the orbits demonstrate no acute abnormality. SINUSES: The visualized paranasal sinuses and mastoid air cells demonstrate no acute abnormality. SOFT TISSUES/SKULL: No acute abnormality of the visualized skull or soft tissues. [facility] Shemar Thomas MD - 08/03/2023 EXAMINATION: CT OF THE HEAD WITHOUT CONTRAST 08/03/2023 3:48 pm TECHNIQUE: CT of the head was performed without the administration of intravenous contrast. Automated exposure control, iterative reconstruction, and/or weight based adjustment of the mA/kV was utilized to reduce the radiation dose to as low as reasonably achievable. COMPARISON: CT head 07/18/2023 HISTORY: ORDERING SYSTEM PROVIDED HISTORY: fall, L ICH 05/07 TECHNOLOGIST PROVIDED HISTORY: fall, L ICH 05/07 Decision Support Exception - unselect if not a suspected or confirmed emergency medical condition->Emergency Medical Condition (MA) FINDINGS: BRAIN/VENTRICLES: There is no acute intracranial hemorrhage, mass effect or midline shift. No abnormal extra-axial fluid collection. The barr-white differentiation is maintained without evidence of an acute infarct. There is no evidence of hydrocephalus. Left frontal encephalomalacia changes are seen. ORBITS: The visualized portion of the orbits demonstrate no acute abnormality. SINUSES: The visualized paranasal sinuses and mastoid air cells demonstrate no acute abnormality. SOFT TISSUES/SKULL: No acute abnormality of the visualized skull or soft tissues. IMPRESSION: No acute intracranial abnormality. Stable left frontal encephalomalacia. [facility] CT Head WO contrastOrdered B y: Shemar Thomas on 08-03-2023 [facility] [employer] Work Phone: Comp Metabolic Profon 2022 Albumin [Mass/Vol] 3.0 g/dL Low 3.5-5.2 [facility] Comment on above: Performed By: #### C DP, BMPX #### [facility] [address] [place] [address] Improvement Analyst: Ramon Hussein MD Albumin/Glob Ratio 0.7 Low 1.0-2.5 [facility] Comment on above: Performed By: #### C DP, BMPX #### [facility] [address] [place] [address] Improvement Analyst: Ramon Hussien MD Alkaline Phos 69 U/L Normal 35-104 [facility] Comment on above: Result Comment: SPEC IMEN SLIGHTLY HEMOLYZED, RESULTS MAY BE ADVERSELY AFFECTED. Performed By: #### C DP, BMPX #### [facility] [address] [place] [address] Improvement Analyst: Ramon Hussein MD ALT [Catalytic activity/Vol] 11 U/L Normal 5-33 [facility] Comment on above: Result Comment: SPEC IMEN SLIGHTLY HEMOLYZED, RESULTS MAY BE ADVERSELY AFFECTED. Performed By: #### C DP, BMPX #### [facility] [address] [place] [address] Improvement Analyst: Ramon Hussein MD Anion gap [Moles/Vol] 13 mmol/L Normal 9-17 [facility] Comment on above: Performed By: #### C DP, BMPX #### [facility] [address] [place] [address] Improvement Analyst: Ramon Hussein MD AST [Catalytic activity/Vol] 17 U/L Normal <32 [facility] Comment on above: Result Comment: SPEC IMEN SLIGHTLY HEMOLYZED, RESULTS MAY BE ADVERSELY AFFECTED. Performed By: #### C DP, BMPX #### [facility] [employer] [address] [address] Improvement Analyst: Ramon Hussein MD Bilirubin [Mass/Vol] 0.3 mg/dL Normal 0.3-1.2 [facility] Comment on above: Performed By: #### C DP, BMPX #### [facility] [employer] [address] [place] [address] Improvement Analyst: Ramon Hussein MD Calcium [Mass/Vol] 8.7 mg/dL Normal 8.6-10.4 [facility] Comment on above: Performed By: #### C DP, BMPX #### [facility] [employer] [address] [place] [address] Improvement Analyst: Ramon Hussein MD Chloride [Moles/Vol] 102 mmol/L Normal 98-107 [facility] Comment on above: Performed By: #### C DP, BMPX #### [facility] [address] [place] [address] Improvement Analyst: Ramon Hussein MD CO2 [Moles/Vol] 24 mmol/L Normal 20-31 [facility] Comment on above: Performed By: #### C DP, BMPX #### [facility] [address] [place] [address] Improvement Analyst: Ramon Hussein MD Creatinine [Mass/Vol] 1.8 mg/dL High 0.5-0.9 [facility] Comment on above: Performed By: #### C DP, BMPX #### [facility] [address] [place] [address] Improvement Analyst: Ramon Hussein MD GFR/1.73 sq M.predicted among non-blacks MDRD (S/P/Bld) [Vol rate/Area] 29 mL/min/{1.73_m2} Low >60 [facility] Comment on above: Result Comment: These results are not intended for use in patients <18 years of age. eGFR results are calculated without a race factor using the 2020 CKD-EPI equation. Careful clinical correlation is recommended, particularly when comparing to results calculated using previous equations. The CKD-EPI equation is less accurate in patients with extremes of muscle mass, extra-renal metabolism of creatine, excessive creatine ingestion, or following therapy that affects renal tubular secretion. Performed By: #### C DP, BMPX #### [facility] [address] [place] [address] Improvement Analyst: Ramon Hussein MD Glucose [Mass/Vol] 95 mg/dL Normal 70-99 [facility] Comment on above: Performed By: #### C DP, BMPX #### [facility] [address] [place] [address] Improvement Analyst: Ramon Hussein MD Potassium [Moles/Vol] 4.3 mmol/L Normal 3.7-5.3 [facility] Comment on above: Result Comment: SPEC IMEN SLIGHTLY HEMOLYZED, RESULTS MAY BE ADVERSELY AFFECTED. Performed By: #### C DP, BMPX #### [facility] [address] [place] [address] Improvement Analyst: Ramon Hussein MD Protein [Mass/Vol] 7.1 g/dL Normal 6.4-8.3 [facility] Comment on above: Performed By: #### C DP, BMPX #### [facility] [address] [place] [address] Improvement Analyst: Ramon Hussein MD Sodium [Moles/Vol] 139 mmol/L Normal 135-144 [facility] Comment on above: Performed By: #### C DP, BMPX #### [facility] [address] [place] [address] Improvement Analyst: Ramon Hussein MD Urea nitrogen [Mass/Vol] 26 mg/dL High 8-23 [facility] Comment on above: Performed By: #### C DP, BMPX #### [facility] [address] [place] [address] Improvement Analyst: Ramon Hussein MD D-Dimer Teston 08-03-2023 D-Dimer Test 1.08 ug/mL FEU High 0.00-0.57 [facility] Comment on above: Result Comment: When combined with a low clinical probability, a D dimer value of <0.50 ug/mL FEU is considered negative for DVT and PE (negative predictive value of 98%, sensitivity of 97%). If this test is not being used to help rule out DVT and PE, then the following reference range should be utilized: 0.00 - 0.57 ug/mL FEU. The D-Dimer assay is intended for use as an aid in the diagnosis of venous thromboembolism (DVT and PE) and the results should be interpreted in conjunction with the patient's medical history, clinical presentation, and other findings. Elevated levels of D-dimer activity can be seen in any state of coagulation activation and is not recommended in patients with therapeutic dose anticoagulant therapy for >24 hours, fibrinolytic therapy within the previous 7 days, trauma or surgery within the previous 4 weeks, disseminated malignancies, aortic aneurysm, sepsis, severe infections, pneumonia, severe skin infections, liver cirrhosis, advanced age, coronary disease, diabetes, and . A very low percentage of patients with DVT may yield D-dimer results below the cutoff of 0.5 ug/mL FEU. This is known to be more prevalent in patients with distal DVT. Performed By: #### B ASPHALT PAVER, CDP, CP, TROPI, LACTIC, DIME #### [facility] [address] [place] [address] Improvement Analyst: Ramon Hussein MD D-Dimer, Quantitativeon 07-16 Fibrin D-dimer FEU (PPP) [Mass/Vol] 1.08 High [facility] Comment on above: When combined with a low clinical probability, a D dimer value of <0.50 ug/mL FEU is considered negative for DVT and PE (negative predictive value of 98%, sensitivity of 97%). If this test is not being used to help rule out DVT and PE, then the following reference range should be utilized: 0.00 - 0.57 ug/mL FEU. The D-Dimer assay is intended for use as an aid in the diagnosis of venous thromboembolism (DVT and PE) and the results should be interpreted in conjunction with the patient's medical history, clinical presentation, and other findings. Elevated levels of D-dimer activity can be seen in any state of coagulation activation and is not recommended in patients with therapeutic dose anticoagulant therapy for >24 hours, fibrinolytic therapy within the previous 7 days, trauma or surgery within the previous 4 weeks, disseminated malignancies, aortic aneurysm, sepsis, severe infections, pneumonia, severe skin infections, liver cirrhosis, advanced age, coronary disease, diabetes, and . A very low percentage of patients with DVT may yield D-dimer results below the cutoff of 0.5 ug/mL FEU. This is known to be more prevalent in patients with distal DVT. Interpretation and review of laboratory results Abnormal [facility] Lactic Acidon 08-03-2023 Lactic Acid,Whole Bl 1.6 mmol/L Normal 0.7-2.1 [facility] Comment on above: Performed By: #### B ASPHALT PAVER, CDP, CP, TROPI, LACTIC, DIME #### [facility] [address] [place] [address] Improvement Analyst: Ramon Hussein MD Lactic Acid, Whole Blood 1.6 mmol/L 0.7 - 2.1 mmol/L [facility] No Panel Informationon 08-03 Interpretation and review of laboratory results Abnormal [facility] Radiology Study observation (narrative) [facility] Troponinon 08-03-2023 Troponin, High Sens 13 ng/L Normal 0-14 [facility] Comment on above: Result Comment: High Sensitivity Troponin values cannot be compared with other Troponin methodologies. Performed By: #### C DP, BMP #### [facility] [address] [place] [address] Improvement Analyst: Ramon Hussein MD Troponin, High Sens 16 ng/L High 0-14 [facility] Comment on above: Result Comment: High Sensitivity Troponin values cannot be compared with other Troponin methodologies. Performed By: #### C DP, BMPX #### [facility] [address] [place] [address] Improvement Analyst: Ramon Hussein MD Troponin I.cardiac High sensitivity method [Mass/Vol] 13 ng/L 0 - 14 ng/L [facility] Comment on above: High Sensitivity Tro ponin values cannot be compared with other Troponin methodologies. [facility] Troponin I.cardiac High sensitivity method [Mass/Vol] 16 ng/L High 0 - 14 ng/L [facility] Comment on above: High Sensitivity Tro ponin values cannot be compared with other Troponin methodologies. XR CHEST (2 VW)on 08-03-2023 XR CHEST (2 VW) EXAMINATION: TWO XRAY VIEWS OF THE CHEST 08/03/2023 2:54 pm COMPARISON: 04/15/2023. HISTORY: ORDERING SYSTEM PROVIDED HISTORY: eval syncope/fall TECHNOLOGIST PROVIDED HISTORY: eval syncope/fall Reason for Exam: eval syncope/fall. FINDINGS: No displaced rib fracture or pneumothorax identified. Lung volumes are large. There is no confluent airspace consolidation or pleural effusion. The cardiomediastinal silhouette and pulmonary vessels appear normal. IMPRESSION: 1. No acute findings. 2. Large lung volumes. Interpreted by: Jesús Yen MD Signed by: Jesús Yen MD 08/03/23 Final result Normal [facility] XR Chest 2 Viewson 3 1. No acute findings . 2. Large lung volumes. [facility] RIS CONSOLIDATED EXAMINATION: TWO XRAY VIEWS OF THE CHEST 08/03/2023 2:54 pm COMPARISON: 04/15/2023. HISTORY: ORDERING SYSTEM PROVIDED HISTORY: eval syncope/fall TECHNOLOGIST PROVIDED HISTORY: eval syncope/fall Reason for Exam: eval syncope/fall. FINDINGS: No displaced rib fracture or pneumothorax identified. Lung volumes are large. There is no confluent airspace consolidation or pleural effusion. The cardiomediastinal silhouette and pulmonary vessels appear normal. PN RIS CONSOLIDATED Jesús Yen MD - 08/03/2023 EXAMINATION: TWO XRAY VIEWS OF THE CHEST 08/03/2023 2:54 pm COMPARISON: 04/15/2023. HISTORY: ORDERING SYSTEM PROVIDED HISTORY: eval syncope/fall TECHNOLOGIST PROVIDED HISTORY: eval syncope/fall Reason for Exam: eval syncope/fall. FINDINGS: No displaced rib fracture or pneumothorax identified. Lung volumes are large. There is no confluent airspace consolidation or pleural effusion. The cardiomediastinal silhouette and pulmonary vessels appear normal. IMPRESSION: 1. No acute findings. 2. Large lung volumes. [facility] Radiology Study observation (narrative) [facility] XR Chest 2 ViewsOrdered By: Jesús Yen on 08-03-2023 [facility] Work Phone: CT HEAD WO CONTRASTon 2022 CT HEAD WO CONTRAST EXAMINATION: CT OF THE HEAD WITHOUT CONTRAST 07/18/2023 11:37 am TECHNIQUE: CT of the head was performed without the administration of intravenous contrast. Automated exposure control, iterative reconstruction, and/or weight based adjustment of the mA/kV was utilized to reduce the radiation dose to as low as reasonably achievable. COMPARISON: 05/13/2023 HISTORY: ORDERING SYSTEM PROVIDED HISTORY: Intracranial hemorrhage (HCC) TECHNOLOGIST PROVIDED HISTORY: Reason for Exam: pt stated f/u intracranial hemorrhage FINDINGS: BRAIN/VENTRICLES: New left encephalomalacia with minimal cortical calcification at the site of prior intraparenchymal hemorrhage. No new hemorrhage or evidence of acute ischemic infarct. No hydrocephalus or extra-axial fluid collection. Midline maintained. Basal cisterns patent. Stable moderate chronic white matter microvascular ischemic changes. Chronic lacunar infarct in the left basal ganglia redemonstrated. ORBITS: The visualized portion of the orbits demonstrate no acute abnormality. SINUSES: The visualized paranasal sinuses and mastoid air cells demonstrate no acute abnormality. SOFT TISSUES/SKULL: No acute abnormality of the visualized skull or soft tissues. IMPRESSION: 1. New encephalomalacia and minimal cortical calcification in the left frontal lobe at the site of prior intraparenchymal hemorrhage. No new or residual hemorrhage identified. 2. Stable chronic white matter microvascular ischemic changes and chronic lacunar infarct in left basal ganglia. Interpreted by: Aundrea Evangelista MD Signed by: Aundrea Evangelista MD 07/19/23 Final result Normal [facility] CT HEAD WO CONTRASTon 2022 CT HEAD WO CONTRAST EXAMINATION: CT OF THE HEAD WITHOUT CONTRAST 05/13/2023 12:00 pm TECHNIQUE: CT of the head was performed without the administration of intravenous contrast. Automated exposure control, iterative reconstruction, and/or weight based adjustment of the mA/kV was utilized to reduce the radiation dose to as low as reasonably achievable. COMPARISON: 04/19/2023 HISTORY: ORDERING SYSTEM PROVIDED HISTORY: Acute intracerebral hemorrhage (HCC) TECHNOLOGIST PROVIDED HISTORY: Prior to follow up with Dr. Portillo in 4 weeks f/u ICH Reason for Exam: f/u ICH, Acute intracerebral hemorrhage (HCC) FINDINGS: BRAIN/VENTRICLES: There has been expected evolution of a now subacute left frontal parenchymal hematoma showing decreased density and volume as Del is decreased local mass effect causing left frontal sulcal effacement. No midline shift. No hemorrhage or evidence of acute ischemic infarct. Stable chronic lacunar infarct in the left basal ganglia and [id number] chronic white matter microvascular ischemic changes. No hydrocephalus or extra-axial fluid collection. ORBITS: The visualized portion of the orbits demonstrate no acute abnormality. SINUSES: The visualized paranasal sinuses and mastoid air cells demonstrate no acute abnormality. SOFT TISSUES/SKULL: No acute abnormality of the visualized skull or soft tissues. IMPRESSION: Expected evolution of a subacute left frontal intraparenchymal hematoma showing decreased density in volume as well as decreased local sulcal effacement. No new hemorrhage or significant mass effect. Interpreted by: Aundrea Evangelista MD Signed by: Aundrea Evangelista MD 05/19/23 Final result Normal [facility] Basic Metabolic Profon 05-11 Anion gap [Moles/Vol] 11 mmol/L Normal 9-17 [facility] Comment on above: Performed By: #### C DP, BMP #### [facility] [address] [place] [address] Improvement Analyst: Ramon Hussein MD Calcium [Mass/Vol] 9.5 mg/dL Normal 8.6-10.4 [facility] Comment on above: Performed By: #### C DP, BMP #### [facility] [address] [place] [address] Improvement Analyst: Ramon Hussein MD Chloride [Moles/Vol] 102 mmol/L Normal 98-107 [facility] Comment on above: Performed By: #### C DP, BMP #### [facility] [address] [place] [address] Improvement Analyst: Ramon Hussein MD CO2 [Moles/Vol] 26 mmol/L Normal 20-31 [facility] Comment on above: Performed By: #### C DP, BMP #### [facility] [address] [place] [address] Improvement Analyst: Ramon Hussein MD Creatinine [Mass/Vol] 2.4 mg/dL High 0.5-0.9 [facility] Comment on above: Performed By: #### C DP, BMP #### [facility] [employer] [address] [place] [address] Improvement Analyst: Ramon Hussein MD GFR/1.73 sq M.predicted among non-blacks MDRD (S/P/Bld) [Vol rate/Area] 21 mL/min/{1.73_m2} Low >60 [facility] Comment on above: Result Comment: These results are not intended for use in patients <18 years of age. eGFR results are calculated without a race factor using the 2020 CKD-EPI equation. Careful clinical correlation is recommended, particularly when comparing to results calculated using previous equations. The CKD-EPI equation is less accurate in patients with extremes of muscle mass, extra-renal metabolism of creatine, excessive creatine ingestion, or following therapy that affects renal tubular secretion. Performed By: #### C DP, BMP #### [facility] [address] [place] [address] Improvement Analyst: Ramon Hussein MD Glucose [Mass/Vol] 136 mg/dL High 70-99 [facility] Comment on above: Performed By: #### C DP, BMP #### [facility] [address] [place] [address] Improvement Analyst: Ramon Hussein MD Potassium [Moles/Vol] 3.6 mmol/L Low 3.7-5.3 [facility] Comment on above: Performed By: #### C DP, BMP #### [address] [address] Improvement Analyst: Ramon Hussein MD Sodium [Moles/Vol] 139 mmol/L Normal 135-144 [facility] Comment on above: Performed By: #### C DP, BMP #### [address] [address] Improvement Analyst: Ramon Hussein MD Urea nitrogen [Mass/Vol] 24 mg/dL High - [facility] Comment on above: Performed By: #### C DP, BMP #### [address] [address] Improvement Analyst: Ramon Hussein MD CBC with Diffon 05-11-2023 Abs. Basophil 0.03 k/uL Normal 0.00-0.20 [facility] Comment on above: Performed By: #### C DP, BMP #### [address] [address] Improvement Analyst: Ramon Hussein MD Abs.Imm.Granulocyt e 0.04 k/uL Normal 0.00-0.30 [facility] Comment on above: Performed By: #### C DP, BMP #### [address] [address] Improvement Analyst: aRmon Hussein MD Abs.Neutrophil (Seg) 5.77 k/uL Normal 1.50-8.10 [facility] Comment on above: Performed By: #### C DP, BMP #### [address] [address] Improvement Analyst: Ramon Hussein MD Basophils/100 WBC (Bld) 0 % Normal 0-2 [facility] Comment on above: Performed By: #### C DP, BMP #### [place] [address] Improvement Analyst: Ramon Hussein MD Eosinophils (Bld) [#/Vol] 0.13 10*3/uL Normal 0.00-0.44 [facility] Comment on above: Performed By: #### C DP, BMP #### [place] [address] Improvement Analyst: Ramon Hussein MD Eosinophils/100 WBC (Bld) 2 % Normal 1-4 [facility] Comment on above: Performed By: #### C DP, BMP #### [facility] [employer] [address] [place] [address] Improvement Analyst: Ramon Hussein MD Erythrocyte distribution width (RBC) [Ratio] 14.6 % High 11.8-14.4 [facility] Comment on above: Performed By: #### C DP, BMP #### [place] [address] Improvement Analyst: Ramon Hussein MD Hematocrit (Bld) [Volume fraction] 37.4 % Normal 36.3-47.1 [facility] Comment on above: Performed By: #### C DP, BMP #### [place] [address] Improvement Analyst: Ramon Hussein MD Hemoglobin (Bld) [Mass/Vol] 12.1 g/dL Normal 11.9-15.1 [facility] Comment on above: Performed By: #### C DP, BMP #### [facility] [employer] [address] [place] [address] Improvement Analyst: Ramon Hussein MD Immature granulocytes/100 WBC (Bld) 1 % High 0 [facility] Comment on above: Performed By: #### C DP, BMP #### [address] [address] Improvement Analyst: Ramon Hussein MD Lymphocytes (Bld) [#/Vol] 0.79 10*3/uL Low 1.10-3.70 [facility] Comment on above: Performed By: #### C DP, BMP #### [address] [address] Improvement Analyst: Ramon Hussein MD Lymphocytes/100 WBC (Bld) 10 % Low 24-43 [facility] Comment on above: Performed By: #### C DP, BMP #### [place] [address] Improvement Analyst: Ramon Hussein MD MCH (RBC) [Entitic mass] 32.1 pg Normal 25.2-33.5 [facility] Comment on above: Performed By: #### C DP, BMP #### [place] [address] Improvement Analyst: Ramon Hussein MD MCHC (RBC) [Mass/Vol] 32.4 g/dL Normal 28.4-34.8 [facility] Comment on above: Performed By: #### C DP, BMP #### [place] [address] Improvement Analyst: Ramon Hussein MD MCV (RBC) [Entitic vol] 99.2 fL Normal 82.6-102.9 [facility] Comment on above: Performed By: #### C DP, BMP #### [address] [address] Improvement Analyst: Ramon Hussein MD Monocytes (Bld) [#/Vol] 0.99 10*3/uL Normal 0.10-1.20 [facility] Comment on above: Performed By: #### C DP, BMP #### [place] [address] Improvement Analyst: Ramon Hussein MD Monocytes/100 WBC (Bld) 13 % High 3-12 [facility] Comment on above: Performed By: #### C DP, BMP #### [address] [address] Improvement Analyst: Ramon Hussein MD Neutrophil (Seg) 74 % High 36-65 [facility] Comment on above: Performed By: #### C DP, BMP #### [address] [address] Improvement Analyst: Ramon Hussein MD NRBC Automated 0.0 per 100 WBC Normal 0.0 [facility] Comment on above: Performed By: #### C DP, BMP #### [address] [address] Improvement Analyst: Ramon Hussein MD Platelet mean volume (Bld) [Entitic vol] 10.8 fL Normal 8.1-13.5 [facility] Comment on above: Performed By: #### C DP, BMP #### [address] [address] Improvement Analyst: Ramon Hussein MD Platelets (Bld) [#/Vol] 321 10*3/uL Normal 138-453 [facility] Comment on above: Performed By: #### C DP, BMP #### [address] [address] Improvement Analyst: Ramon Hussein MD RBC (Bld) [#/Vol] 3.77 10*6/uL Low 3.95-5.11 [facility] Comment on above: Performed By: #### C DP, BMP #### [address] [address] Improvement Analyst: Ramon Hussein MD RBC morphology finding Nom (Bld) ANISOCYTOSIS PRESENT Normal [facility] Comment on above: Performed By: #### C DP, BMP #### [address] [address] Improvement Analyst: Ramon Hussein MD WBC (Bld) [#/Vol] 7.8 10*3/uL Normal 3.5-11.3 [facility] Comment on above: Performed By: #### C DP, BMP #### [address] [address] Improvement Analyst: Ramon Hussein MD Cult,Urineon 05-11-2023 Cult,Urine Specimen Description .CLEAN CATCH URINE Culture NO SIGNIFICANT GROWTH Report Status FINAL 05/11/2023 Normal [facility] Comment on above: Performed By: #### U RC #### [address] [address] Improvement Analyst: Ramon Hussein MD UA w/Reflex Cultureon 2022 Bilirubin, SemiQt,Ur Negative Normal NEG [facility] Comment on above: Performed By: #### P E #### [address] [address] Improvement Analyst: Ramon Hussein MD Blood, Urine Negative Normal NEG [facility] Comment on above: Performed By: #### P E #### [address] [address] Improvement Analyst: Ramon Hussein MD Clarity (U) Turbid Abnormal CLEAR [facility] Comment on above: Performed By: #### P E #### [address] [address] Improvement Analyst: Ramon Hussein MD Color (U) Yellow Normal YEL [facility] Comment on above: Performed By: #### P E #### [address] [address] Improvement Analyst: Ramon Hussein MD Glucose Ql (U) Negative Normal NEG [facility] Comment on above: Performed By: #### P E #### [address] [address] Improvement Analyst: Ramon Hussein MD Ketones Ql (U) TRACE Abnormal NEG [facility] Comment on above: Performed By: #### P E #### [address] [address] Improvement Analyst: Ramon Hussein MD Leukocyte esterase Test strip Ql (U) MODERATE Abnormal NEG [facility] Comment on above: Performed By: #### P E #### [address] [address] Improvement Analyst: Ramon Hussein MD Nitrite,Ur Negative Normal NEG [facility] Comment on above: Performed By: #### P E #### [address] [address] Improvement Analyst: Ramon Hussein MD PH,Ur 5.5 Normal 5.0-8.0 [facility] Comment on above: Performed By: #### P E #### [address] [address] Improvement Analyst: Ramon Hussein MD Protein Ql (U) 2+ mg/dL Abnormal NEG [facility] Comment on above: Performed By: #### P E #### [address] [address] Improvement Analyst: Ramon Hussein MD Spec. Camino,Ur 1.016 Normal 1.005-1.030 [facility] Comment on above: Performed By: #### P E #### [address] [address] Improvement Analyst: Ramon Hussein MD Urobilinogen,Ur Normal Normal 0.0-1.0 [facility] Comment on above: Performed By: #### P E #### [facility] [address] [place] [address] Improvement Analyst: Ramon Hussein MD Urinalysis,Microon 3 Bacteria FEW Abnormal NONE [facility] Comment on above: Performed By: #### P E #### [address] [address] Improvement Analyst: Ramon Hussein MD Casts 20 TO 50 Normal 0-8 [facility] Comment on above: Result Comment: Refe rence range defined for non-centrifuged specimen. Performed By: #### P E #### [facility] [address] [place] [address] Improvement Analyst: Ramon Hussein MD Epithelial cells LM Ql (Urine sed) 20 TO 50 Normal 0-5 [facility] Comment on above: Performed By: #### P E #### [address] [address] Improvement Analyst: Ramon Hussein MD Urine RBC's 0 TO 2 Normal 0-4 [facility] Comment on above: Result Comment: Refe rence range defined for non-centrifuged specimen. Performed By: #### P E #### [address] [address] Improvement Analyst: Ramon Hussein MD Urine WBC's 50 TO 100 Normal 0-5 [facility] Comment on above: Performed By: #### P E #### [address] [address] Improvement Analyst: Ramon Hussein MD Basic Metabolic Panelon 04-15 Anion gap [Moles/Vol] 11 mmol/L 9 - 17 mmol/L [facility] Calcium [Mass/Vol] 9.3 mg/dL 8.6 - 10. 4 mg/dL [facility] Chloride [Moles/Vol] 100 mmol/L 98 - 107 mmol/L [facility] CO2 [Moles/Vol] 25 mmol/L 20 - 31 mmol/L [facility] Creatinine [Mass/Vol] 1.8 mg/dL High 0.5 - 0.9 mg/dL [facility] GFR/1.73 sq M.predicted MDRD (S/P/Bld) [Vol rate/Area] 30 mL/min/{1.73_m2} Low - PINF [facility] Comment on above: These results are not intended for use in patients <18 years of age. eGFR results are calculated without a race factor using the 2020 CKD-EPI equation. Careful clinical correlation is recommended, particularly when comparing to results calculated using previous equations. The CKD-EPI equation is less accurate in patients with extremes of muscle mass, extra-renal metabolism of creatine, excessive creatine ingestion, or following therapy that affects renal tubular secretion. Glucose [Mass/Vol] 82 mg/dL 70 - 99 mg/dL [facility] Interpretation and review of laboratory results Abnormal [facility] Potassium [Moles/Vol] 3.7 mmol/L 3.7 - 5.3 mmol/L [facility] Sodium [Moles/Vol] 136 mmol/L 135 - 144 mmol/L [facility] Urea nitrogen [Mass/Vol] 34 mg/dL High 8 - 23 mg/dL [facility] Basic Metabolic Profon 04-27 Anion gap [Moles/Vol] 11 mmol/L Normal 9-17 [facility] Comment on above: Performed By: #### C DP, BMPX #### [facility] [address] [place] [address] Improvement Analyst: Ramon Hussein MD Calcium [Mass/Vol] 9.3 mg/dL Normal 8.6-10.4 [facility] Comment on above: Performed By: #### C DP, BMPX #### [facility] [address] [place], [place] [id number] Improvement Analyst: Ramon Hussein MD Chloride [Moles/Vol] 100 mmol/L Normal 98-107 [facility] Comment on above: Performed By: #### C DP, BMPX #### [facility] [address] [place] [address] Improvement Analyst: Ramon Hussein MD CO2 [Moles/Vol] 25 mmol/L Normal 20-31 [facility] Comment on above: Performed By: #### C DP, BMPX #### [facility] [address] [place] [address] Improvement Analyst: Ramon Hussein MD Creatinine [Mass/Vol] 1.8 mg/dL High 0.5-0.9 [facility] Comment on above: Performed By: #### C DP, BMPX #### [facility] [address] [place] [address] Improvement Analyst: Ramon Hussein MD GFR/1.73 sq M.predicted among non-blacks MDRD (S/P/Bld) [Vol rate/Area] 30 mL/min/{1.73_m2} Low >60 [facility] Comment on above: Result Comment: These results are not intended for use in patients <18 years of age. eGFR results are calculated without a race factor using the 2020 CKD-EPI equation. Careful clinical correlation is recommended, particularly when comparing to results calculated using previous equations. The CKD-EPI equation is less accurate in patients with extremes of muscle mass, extra-renal metabolism of creatine, excessive creatine ingestion, or following therapy that affects renal tubular secretion. Performed By: #### C DP, BMPX #### [facility] [address] [place] [address] Improvement Analyst: Ramon Hussein MD Glucose [Mass/Vol] 82 mg/dL Normal 70-99 [facility] Comment on above: Performed By: #### C DP, BMPX #### [facility] [address] [place] [address] Improvement Analyst: Ramon Hussein MD Potassium [Moles/Vol] 3.7 mmol/L Normal 3.7-5.3 [facility] Comment on above: Performed By: #### C DP, BMPX #### [facility] [address] [place], [place] [id number] Improvement Analyst: Ramon Hussein MD Sodium [Moles/Vol] 136 mmol/L Normal 135-144 [facility] Comment on above: Performed By: #### C DP, BMPX #### [employer] [facility] [address] [place], [place] [id number] Improvement Analyst: Ramon Hussein MD Urea nitrogen [Mass/Vol] 34 mg/dL High 8-23 [facility] Comment on above: Performed By: #### C DP, BMPX #### [facility] [address] [place], [place] [id number] Improvement Analyst: Ramon Hussein MD CT HEAD WO CONTRASTon 2022 CT HEAD WO CONTRAST EXAMINATION: CT OF THE HEAD WITHOUT CONTRAST, 04/16/2023 5:15 am TECHNIQUE: CT of the head was performed without the administration of intravenous contrast. Automated exposure control, iterative reconstruction, and/or weight based adjustment of the mA/kV was utilized to reduce the radiation dose to as low as reasonably achievable. COMPARISON: Prior outside head CT from [facility] is not available for comparison at this time. HISTORY: ORDERING SYSTEM PROVIDED HISTORY: IPH, SDH TECHNOLOGIST PROVIDED HISTORY: IPH, SDH Reason for Exam: IPH, SDH FINDINGS: BRAIN/VENTRICLES: There is a 22 x 44 x 27 mm (transverse x anteroposterior x craniocaudal) left frontal intraparenchymal hematoma with extension into the adjacent subarachnoid space overlying the left frontal convexity. There are also a few small scattered areas of subarachnoid hemorrhage overlying the right anterior frontal lobe. No subdural hematoma is identified despite outside prior report of right parafalcine subdural. There is a small focus of right frontal subarachnoid hemorrhage adjacent to the right side of the falx which may have been previously interpreted as subdural. There is no herniation or hydrocephalus. Scattered white matter abnormalities are nonspecific but commonly attributed to chronic microvascular ischemia. There are chronic lacunar infarcts. ORBITS: The visualized portion of the orbits demonstrate no acute abnormality. SINUSES: The visualized paranasal sinuses and mastoid air cells demonstrate no acute abnormality. SOFT TISSUES/SKULL: No acute abnormality of the visualized skull or soft tissues. IMPRESSION: 44 mm acute left frontal intraparenchymal hematoma with subarachnoid extension. Interpreted by: Lj Grossman MD Signed by: Lj Grossman MD 04/21/23 Final result Normal [facility] Prot. Electroph, Blon 2022 Pathologist Review: ELECTRONICALLY SIGNED. CAM CORLEY M.D. Normal [facility] Comment on above: Performed By: #### P E #### [address] [place] [address] Improvement Analyst: Ramon Hussein MD Prot. Elect-Interp ALBUMIN IS DECREASED . MAY BE OBSERVED WITH HEPATIC DISEASE, PROTEINURIA, Normal [facility] Comment on above: Result Comment: MALN UTRITION, ACUTE PHASE RESPONSE, AND HEMODILUTION. Performed By: #### P E #### [address] [address] Improvement Analyst: Ramon Hussein MD Prot. Electroph, Blon 7 Albumin [Mass/Vol] 3.1 g/dL Low 3.2-5.2 [facility] Comment on above: Performed By: #### P E #### [address] [place] [address] Improvement Analyst: Ramon Hussein MD Albumin, % 52 % Normal 45-65 [facility] Comment on above: Performed By: #### P E #### [facility] [place] [address] Improvement Analyst: Ramon Hussein MD Rjbfl-1-xahkbdism 0.2 g/dL Normal 0.1-0.4 [facility] Comment on above: Performed By: #### P E #### [facility] [place] [address] Improvement Analyst: Ramon Hussein MD Mawoh-7-gqowlqqjg, % 4 % Normal 3-6 [facility] Comment on above: Performed By: #### P E #### [address] [place] [address] Improvement Analyst: Ramon Hussein MD Zojjm-7-hrojbjrbs 0.9 g/dL Normal 0.5-0.9 [facility] Comment on above: Performed By: #### P E #### [address] [address] Improvement Analyst: Ramon Hussein MD Fpykh-0-hxcdybxir, % 15 % High 6-13 [facility] Comment on above: Performed By: #### P E #### [address] [address] Improvement Analyst: Ramon Hussein MD Beta-globulins 0.7 g/dL Normal 0.5-1.1 [facility] Comment on above: Performed By: #### P E #### [address] [address] Improvement Analyst: Ramon Hussein MD Beta-globulins,% 12 % Normal 11-19 [facility] Comment on above: Performed By: #### P E #### [address] [address] Improvement Analyst: Ramon Hussein MD Gamma-globulins 1.0 g/dL Normal 0.5-1.5 [facility] Comment on above: Performed By: #### P E #### [address] [address] Improvement Analyst: Ramon Hussein MD Gamma-globulins,% 18 % Normal 9-20 [facility] Comment on above: Performed By: #### P E #### [address] [address] Improvement Analyst: Ramon Hussein MD Total Prot. Sum 5.9 g/dL Low 6.3-8.2 [facility] Comment on above: Performed By: #### P E #### [address] [address] Improvement Analyst: Ramon Hussein MD Total Prot. Sum,% 101 % Normal 98-102 [facility] Comment on above: Performed By: #### P E #### [address] [address] Improvement Analyst: Ramon Hussein MD Basic Metab w/rfx MGon 04-20 Anion gap [Moles/Vol] 12 mmol/L Normal 9-17 [facility] Comment on above: Performed By: #### P E #### [address] [address] Improvement Analyst: Ramon Hussien MD Calcium [Mass/Vol] 8.9 mg/dL Normal 8.6-10.4 [facility] Comment on above: Performed By: #### P E #### [address] [address] Improvement Analyst: Ramon Hussein MD Chloride [Moles/Vol] 108 mmol/L High 98-107 [facility] Comment on above: Performed By: #### P E #### [address] [address] Improvement Analyst: Ramon Hussein MD CO2 [Moles/Vol] 21 mmol/L Normal 20-31 [facility] Comment on above: Performed By: #### P E #### [address] [address] Improvement Analyst: Ramon Hussein MD Creatinine [Mass/Vol] 1.5 mg/dL High 0.5-0.9 [facility] Comment on above: Performed By: #### P E #### [address] [place] [address] Improvement Analyst: Ramon Hussein MD GFR/1.73 sq M.predicted among non-blacks MDRD (S/P/Bld) [Vol rate/Area] 37 mL/min/{1.73_m2} Low >60 [facility] Comment on above: Result Comment: These results are not intended for use in patients <18 years of age. eGFR results are calculated without a race factor using the 2020 CKD-EPI equation. Careful clinical correlation is recommended, particularly when comparing to results calculated using previous equations. The CKD-EPI equation is less accurate in patients with extremes of muscle mass, extra-renal metabolism of creatine, excessive creatine ingestion, or following therapy that affects renal tubular secretion. Performed By: #### P E #### [address] [address] Improvement Analyst: Ramon Hussein MD Glucose [Mass/Vol] 94 mg/dL Normal 70-99 [facility] Comment on above: Performed By: #### P E #### [address] [address] Improvement Analyst: Ramon Hussein MD Potassium [Moles/Vol] 3.8 mmol/L Normal 3.7-5.3 [facility] Comment on above: Performed By: #### P E #### [address] [address] Improvement Analyst: Ramon Hussein MD Sodium [Moles/Vol] 141 mmol/L Normal 135-144 [facility] Comment on above: Performed By: #### P E #### [facility] [address] [place] [address] Improvement Analyst: Ramon Hussein MD Urea nitrogen [Mass/Vol] 23 mg/dL Normal 8-23 [facility] Comment on above: Performed By: #### P E #### [address] [address] Improvement Analyst: Ramon Hussein MD CBC with Diffon 04-20-2023 Abs. Basophil 0.04 k/uL Normal 0.00-0.20 [facility] Comment on above: Performed By: #### C DP, BMP #### [address] [address] Improvement Analyst: Ramon Hussein MD Abs.Imm.Granulocyt e 0.07 k/uL Normal 0.00-0.30 [facility] Comment on above: Performed By: #### C DP, BMP #### [place] [address] Improvement Analyst: Ramon Hussein MD Abs.Neutrophil (Seg) 6.64 k/uL Normal 1.50-8.10 [facility] Comment on above: Performed By: #### C DP, BMP #### [place] [address] Improvement Analyst: Ramon Hussein MD Basophils/100 WBC (Bld) 0 % Normal 0-2 [facility] Comment on above: Performed By: #### C DP, BMP #### [address] [address] Improvement Analyst: Ramon Hussein MD Eosinophils (Bld) [#/Vol] 0.26 10*3/uL Normal 0.00-0.44 [facility] Comment on above: Performed By: #### C DP, BMP #### [address] [address] Improvement Analyst: Ramon Hussein MD Eosinophils/100 WBC (Bld) 3 % Normal 1-4 [facility] Comment on above: Performed By: #### C DP, BMP #### [address] [address] Improvement Analyst: Ramon Hussein MD Erythrocyte distribution width (RBC) [Ratio] 14.2 % Normal 11.8-14.4 [facility] Comment on above: Performed By: #### C DP, BMP #### [address] [address] Improvement Analyst: Ramon Hussein MD Hematocrit (Bld) [Volume fraction] 36.7 % Normal 36.3-47.1 [facility] Comment on above: Performed By: #### C DP, BMP #### [address] [address] Improvement Analyst: Ramon Hussein MD Hemoglobin (Bld) [Mass/Vol] 11.7 g/dL Low 11.9-15.1 [facility] Comment on above: Performed By: #### C DP, BMP #### [address] [address] Improvement Analyst: Ramon Hussein MD Immature granulocytes/100 WBC (Bld) 1 % High 0 [facility] Comment on above: Performed By: #### C DP, BMP #### [address] [address] Improvement Analyst: Ramon Hussein MD Lymphocytes (Bld) [#/Vol] 0.97 10*3/uL Low 1.10-3.70 [facility] Comment on above: Performed By: #### C DP, BMP #### [address] [address] Improvement Analyst: Ramon Hussein MD Lymphocytes/100 WBC (Bld) 11 % Low 24-43 [facility] Comment on above: Performed By: #### C DP, BMP #### [facility] [address] [place] [address] Improvement Analyst: Ramon Hussein MD MCH (RBC) [Entitic mass] 31.5 pg Normal 25.2-33.5 [facility] Comment on above: Performed By: #### C DP, BMP #### [address] [address] Improvement Analyst: Ramon Hussein MD MCHC (RBC) [Mass/Vol] 31.9 g/dL Normal 28.4-34.8 [facility] Comment on above: Performed By: #### C DP, BMP #### [address] [address] Improvement Analyst: Ramon Hussein MD MCV (RBC) [Entitic vol] 98.9 fL Normal 82.6-102.9 [facility] Comment on above: Performed By: #### C DP, BMP #### [address] [address] Improvement Analyst: Ramon Hussein MD Monocytes (Bld) [#/Vol] 1.27 10*3/uL High 0.10-1.20 [facility] Comment on above: Performed By: #### C DP, BMP #### [address] [address] Improvement Analyst: Ramon Hussein MD Monocytes/100 WBC (Bld) 14 % High 3-12 [facility] Comment on above: Performed By: #### C DP, BMP #### [address] [address] Improvement Analyst: Ramon Hussein MD Neutrophil (Seg) 71 % High 36-65 [facility] Comment on above: Performed By: #### C DP, BMP #### [facility] [address] [place] [address] Improvement Analyst: Ramon Hussein MD NRBC Automated 0.0 per 100 WBC Normal 0.0 [facility] Comment on above: Performed By: #### C DP, BMP #### [facility] [address] [place] [address] Improvement Analyst: Ramon Hussein MD Platelet mean volume (Bld) [Entitic vol] 10.3 fL Normal 8.1-13.5 [facility] Comment on above: Performed By: #### C DP, BMP #### [facility] [place] [address] Improvement Analyst: Ramon Hussein MD Platelets (Bld) [#/Vol] 274 10*3/uL Normal 138-453 [facility] Comment on above: Performed By: #### C DP, BMP #### [facility] [address] [place] [address] Improvement Analyst: Ramon Hussein MD RBC (Bld) [#/Vol] 3.71 10*6/uL Low 3.95-5.11 [facility] Comment on above: Performed By: #### C DP, BMP #### [address] [address] Improvement Analyst: Ramon Hussein MD WBC (Bld) [#/Vol] 9.3 10*3/uL Normal 3.5-11.3 [facility] Comment on above: Performed By: #### C DP, BMP #### [facility] [address] [place] [address] Improvement Analyst: Ramon Hussein MD Prot. Electroph, Blon 2022 Protein [Mass/Vol] 5.9 g/dL Low 6.4-8.3 [facility] Comment on above: Performed By: #### P E #### [address] [address] Improvement Analyst: Ramon Hussein MD Basic Metab w/rfx MGon 04-19 Anion gap [Moles/Vol] 11 mmol/L Normal 9-17 [facility] Comment on above: Performed By: #### C DP, BMPX #### [address] [address] Improvement Analyst: Ramon Hussein MD Calcium [Mass/Vol] 8.8 mg/dL Normal 8.6-10.4 [facility] Comment on above: Performed By: #### C DP, BMPX #### [address] [address] Improvement Analyst: Ramon Hussein MD Chloride [Moles/Vol] 108 mmol/L High 98-107 [facility] Comment on above: Performed By: #### C DP, BMPX #### [address] [address] Improvement Analyst: Ramon Hussein MD CO2 [Moles/Vol] 20 mmol/L Normal 20-31 [facility] Comment on above: Performed By: #### C DP, BMPX #### [address] [address] Improvement Analyst: Ramon Hussein MD Creatinine [Mass/Vol] 1.4 mg/dL High 0.5-0.9 [facility] Comment on above: Performed By: #### C DP, BMPX #### [address] [address] Improvement Analyst: Ramon Hussein MD GFR/1.73 sq M.predicted among non-blacks MDRD (S/P/Bld) [Vol rate/Area] 40 mL/min/{1.73_m2} Low >60 [facility] Comment on above: Result Comment: These results are not intended for use in patients <18 years of age. eGFR results are calculated without a race factor using the 2020 CKD-EPI equation. Careful clinical correlation is recommended, particularly when comparing to results calculated using previous equations. The CKD-EPI equation is less accurate in patients with extremes of muscle mass, extra-renal metabolism of creatine, excessive creatine ingestion, or following therapy that affects renal tubular secretion. Performed By: #### C DP, BMPX #### [address] [address] Improvement Analyst: Ramon Hussein MD Glucose [Mass/Vol] 103 mg/dL High 70-99 [facility] Comment on above: Performed By: #### C DP, BMPX #### [facility] [address] [place] [address] Improvement Analyst: Ramon Hussein MD Potassium [Moles/Vol] 4.3 mmol/L Normal 3.7-5.3 [facility] Comment on above: Result Comment: SPEC IMEN SLIGHTLY HEMOLYZED, RESULTS MAY BE ADVERSELY AFFECTED. Performed By: #### C DP, BMPX #### [facility] [address] [place] [address] Improvement Analyst: Ramon Hussein MD Sodium [Moles/Vol] 139 mmol/L Normal 135-144 [facility] Comment on above: Performed By: #### C DP, BMPX #### [address] [address] Improvement Analyst: Ramon Hussein MD Urea nitrogen [Mass/Vol] 22 mg/dL Normal 8-23 [facility] Comment on above: Performed By: #### C DP, BMPX #### [facility] [address] [place] [address] Improvement Analyst: Ramon Hussein MD CBC with Diffon 04-19-2023 Abs. Basophil 0.03 k/uL Normal 0.00-0.20 [facility] Comment on above: Performed By: #### C DP, BMPX #### [facility] [address] [place] [address] Improvement Analyst: Ramon Hussein MD Abs.Imm.Granulocyt e 0.06 k/uL Normal 0.00-0.30 [facility] Comment on above: Performed By: #### C DP, BMPX #### [facility] [address] [place] [address] Improvement Analyst: Ramon Hussein MD Abs.Neutrophil (Seg) 7.21 k/uL Normal 1.50-8.10 [facility] Comment on above: Performed By: #### C DP, BMPX #### [address] [address] Improvement Analyst: Ramon Hussein MD Basophils/100 WBC (Bld) 0 % Normal 0-2 [facility] Comment on above: Performed By: #### C DP, BMPX #### [place] [address] Improvement Analyst: Ramon Hussein MD Eosinophils (Bld) [#/Vol] 0.21 10*3/uL Normal 0.00-0.44 [facility] Comment on above: Performed By: #### C DP, BMPX #### [place] [address] Improvement Analyst: Ramon Hussein MD Eosinophils/100 WBC (Bld) 2 % Normal 1-4 [facility] Comment on above: Performed By: #### C DP, BMPX #### [place] [address] Improvement Analyst: Ramon Hussein MD Erythrocyte distribution width (RBC) [Ratio] 14.2 % Normal 11.8-14.4 [facility] Comment on above: Performed By: #### C DP, BMPX #### [place] [address] Improvement Analyst: Ramon Hussein MD Hematocrit (Bld) [Volume fraction] 39.2 % Normal 36.3-47.1 [facility] Comment on above: Performed By: #### C DP, BMPX #### [facility] [address] [place] [address] Improvement Analyst: Ramon Hussein MD Hemoglobin (Bld) [Mass/Vol] 12.3 g/dL Normal 11.9-15.1 [facility] Comment on above: Performed By: #### C DP, BMPX #### [address] [address] Improvement Analyst: Ramon Hussein MD Immature granulocytes/100 WBC (Bld) 1 % High 0 [facility] Comment on above: Performed By: #### C DP, BMPX #### [place] [address] Improvement Analyst: Ramon Hussein MD Lymphocytes (Bld) [#/Vol] 0.79 10*3/uL Low 1.10-3.70 [facility] Comment on above: Performed By: #### C DP, BMPX #### [address] [address] Improvement Analyst: Ramon Hussein MD Lymphocytes/100 WBC (Bld) 8 % Low 24-43 [facility] Comment on above: Performed By: #### C DP, BMPX #### [place] [address] Improvement Analyst: Ramon Hussein MD MCH (RBC) [Entitic mass] 30.8 pg Normal 25.2-33.5 [facility] Comment on above: Performed By: #### C DP, BMPX #### [place] [address] Improvement Analyst: Ramon Hussein MD MCHC (RBC) [Mass/Vol] 31.4 g/dL Normal 28.4-34.8 [facility] Comment on above: Performed By: #### C DP, BMPX #### [address] [address] Improvement Analyst: Ramon Hussein MD MCV (RBC) [Entitic vol] 98.0 fL Normal 82.6-102.9 [facility] Comment on above: Performed By: #### C DP, BMPX #### [address] [address] Improvement Analyst: Ramon Hussein MD Monocytes (Bld) [#/Vol] 1.22 10*3/uL High 0.10-1.20 [facility] Comment on above: Performed By: #### C DP, BMPX #### [address] [address] Improvement Analyst: Ramon Hussein MD Monocytes/100 WBC (Bld) 13 % High 3-12 [facility] Comment on above: Performed By: #### C DP, BMPX #### [address] [address] Improvement Analyst: Ramon Hussein MD Neutrophil (Seg) 76 % High 36-65 [facility] Comment on above: Performed By: #### C DP, BMPX #### [address] [address] Improvement Analyst: Ramon Hussein MD NRBC Automated 0.0 per 100 WBC Normal 0.0 [facility] Comment on above: Performed By: #### C DP, BMPX #### [address] [address] Improvement Analyst: Ramon Hussein MD Platelet mean volume (Bld) [Entitic vol] 10.1 fL Normal 8.1-13.5 [facility] Comment on above: Performed By: #### C DP, BMPX #### [address] [address] Improvement Analyst: Ramon Hussein MD Platelets (Bld) [#/Vol] 260 10*3/uL Normal 138-453 [facility] Comment on above: Performed By: #### C DP, BMPX #### [address] [address] Improvement Analyst: Ramon Hussein MD RBC (Bld) [#/Vol] 4.00 10*6/uL Normal 3.95-5.11 [facility] Comment on above: Performed By: #### C DP, BMPX #### [facility] [address], [place] [id number] Improvement Analyst: Ramon Hussein MD WBC (Bld) [#/Vol] 9.5 10*3/uL Normal 3.5-11.3 [facility] Comment on above: Performed By: #### C DP, BMPX #### [facility] [address], [place] [id number] Improvement Analyst: Ramon Hussein MD CT HEAD WO CONTRASTon 2022 CT HEAD WO CONTRAST EXAMINATION: CT OF THE HEAD WITHOUT CONTRAST 04/19/2023 12:11 pm TECHNIQUE: CT of the head was performed without the administration of intravenous contrast. Automated exposure control, iterative reconstruction, and/or weight based adjustment of the mA/kV was utilized to reduce the radiation dose to as low as reasonably achievable. COMPARISON: CT brain performed 04/16/2023. HISTORY: ORDERING SYSTEM PROVIDED HISTORY: F/U [facility] TECHNOLOGIST PROVIDED HISTORY: F/U [facility] FINDINGS: BRAIN/VENTRICLES: There is redemonstration of intraparenchymal hemorrhage in the left frontal lobe with adjacent edema. There is minimal adjacent subarachnoid hemorrhage. There is no significant midline shift. There is underlying chronic microvascular disease. The ventricles are similar in size. The infratentorial structures are unremarkable. ORBITS: The visualized portion of the orbits demonstrate no acute abnormality. SINUSES: The visualized paranasal sinuses and mastoid air cells demonstrate no acute abnormality. SOFT TISSUES/SKULL: No acute abnormality of the visualized skull or soft tissues. IMPRESSION: Similar left frontal intraparenchymal hemorrhage with adjacent edema. Trace adjacent subarachnoid hemorrhage in the left frontal lobe. Interpreted by: Prakash Trujillo MD Signed by: Prakash Trujillo MD 04/19/23 Final result Normal [facility] Cult,Urineon 04-19-2023 Cult,Urine Specimen Description .CLEAN CATCH URINE Culture NO SAMPLE RECEIVED Report Status FINAL 04/19/2023 Normal [facility] Comment on above: Performed By: #### P E #### [address] [address] Improvement Analyst: Ramon Hussein MD Basic Metab w/rfx MGon 04-18 Anion gap [Moles/Vol] 11 mmol/L Normal 9-17 [facility] Comment on above: Performed By: #### C DP, BMPX #### [facility] [address] [place] [address] Improvement Analyst: Ramon Hussein MD Calcium [Mass/Vol] 8.6 mg/dL Normal 8.6-10.4 [facility] Comment on above: Performed By: #### C DP, BMPX #### [facility] [address] [place] [address] Improvement Analyst: Ramon Hussein MD Chloride [Moles/Vol] 108 mmol/L High 98-107 [facility] Comment on above: Performed By: #### C DP, BMPX #### [facility] [address] [place] [address] Improvement Analyst: Ramon Hussein MD CO2 [Moles/Vol] 20 mmol/L Normal 20-31 [facility] Comment on above: Performed By: #### C DP, BMPX #### [facility] [address] [place] [address] Improvement Analyst: Ramon Hussein MD Creatinine [Mass/Vol] 1.3 mg/dL High 0.5-0.9 [facility] Comment on above: Performed By: #### C DP, BMPX #### [facility] [address] [place] [address] Improvement Analyst: Ramon Hussein MD GFR/1.73 sq M.predicted among non-blacks MDRD (S/P/Bld) [Vol rate/Area] 44 mL/min/{1.73_m2} Low >60 [facility] Comment on above: Result Comment: These results are not intended for use in patients <18 years of age. eGFR results are calculated without a race factor using the 2020 CKD-EPI equation. Careful clinical correlation is recommended, particularly when comparing to results calculated using previous equations. The CKD-EPI equation is less accurate in patients with extremes of muscle mass, extra-renal metabolism of creatine, excessive creatine ingestion, or following therapy that affects renal tubular secretion. Performed By: #### C DP, BMPX #### [facility] [address] [place] [address] Improvement Analyst: Ramon Hussein MD Glucose [Mass/Vol] 102 mg/dL High 70-99 [facility] Comment on above: Performed By: #### C DP, BMPX #### [facility] [address] [place] [address] Improvement Analyst: Ramon Hussein MD Potassium [Moles/Vol] 3.9 mmol/L Normal 3.7-5.3 [facility] Comment on above: Performed By: #### C DP, BMPX #### [facility] [address] [place] [address] Improvement Analyst: Ramon Hussein MD Sodium [Moles/Vol] 139 mmol/L Normal 135-144 [facility] Comment on above: Performed By: #### C DP, BMPX #### [facility] [address] [place] [address] Improvement Analyst: Ramon Hussein MD Urea nitrogen [Mass/Vol] 17 mg/dL Normal 8-23 [facility] Comment on above: Performed By: #### C DP, BMPX #### [facility] [address] [place] [address] Improvement Analyst: Ramon Hussein MD CBC with Diffon 04-18-2023 Abs. Basophil 0.03 k/uL Normal 0.00-0.20 [facility] Comment on above: Performed By: #### C DP, BMPX #### [facility] [address] [place] [place] [address] Improvement Analyst: Ramon Hussein MD Abs.Imm.Granulocyt e 0.07 k/uL Normal 0.00-0.30 [facility] Comment on above: Performed By: #### C DP, BMPX #### [address] [address] Improvement Analyst: Ramon Hussein MD Abs.Neutrophil (Seg) 8.22 k/uL High 1.50-8.10 [facility] Comment on above: Performed By: #### C DP, BMPX #### [address] [address] Improvement Analyst: Ramon Hussein MD Basophils/100 WBC (Bld) 0 % Normal 0-2 [facility] Comment on above: Performed By: #### C DP, BMPX #### [place] [address] Improvement Analyst: Ramon Hussein MD Eosinophils (Bld) [#/Vol] 0.15 10*3/uL Normal 0.00-0.44 [facility] Comment on above: Performed By: #### C DP, BMPX #### [address] [address] Improvement Analyst: aRmon Hussein MD Eosinophils/100 WBC (Bld) 1 % Normal 1-4 [facility] Comment on above: Performed By: #### C DP, BMPX #### [facility] [address] [place] [address] Improvement Analyst: Ramon Hussein MD Erythrocyte distribution width (RBC) [Ratio] 13.8 % Normal 11.8-14.4 [facility] Comment on above: Performed By: #### C DP, BMPX #### [facility] [address] [place] [address] Improvement Analyst: Ramon Hussein MD Hematocrit (Bld) [Volume fraction] 39.6 % Normal 36.3-47.1 [facility] Comment on above: Performed By: #### C DP, BMPX #### [address] [address] Improvement Analyst: Ramon Hussein MD Hemoglobin (Bld) [Mass/Vol] 12.3 g/dL Normal 11.9-15.1 [facility] Comment on above: Performed By: #### C DP, BMPX #### [address] [address] Improvement Analyst: Ramon Hussein MD Immature granulocytes/100 WBC (Bld) 1 % High 0 [facility] Comment on above: Performed By: #### C DP, BMPX #### [address] [address] Improvement Analyst: Ramon Hussein MD Lymphocytes (Bld) [#/Vol] 0.85 10*3/uL Low 1.10-3.70 [facility] Comment on above: Performed By: #### C DP, BMPX #### [address] [address] Improvement Analyst: Ramon Hussein MD Lymphocytes/100 WBC (Bld) 8 % Low 24-43 [facility] Comment on above: Performed By: #### C DP, BMPX #### [address] [address] Improvement Analyst: Ramon Hussein MD MCH (RBC) [Entitic mass] 30.6 pg Normal 25.2-33.5 [facility] Comment on above: Performed By: #### C DP, BMPX #### [address] [address] Improvement Analyst: Ramon Hussein MD MCHC (RBC) [Mass/Vol] 31.1 g/dL Normal 28.4-34.8 [facility] Comment on above: Performed By: #### C DP, BMPX #### [address] [address] Improvement Analyst: Ramon Hussein MD MCV (RBC) [Entitic vol] 98.5 fL Normal 82.6-102.9 [facility] Comment on above: Performed By: #### C DP, BMPX #### [place] [address] Improvement Analyst: Ramon Hussein MD Monocytes (Bld) [#/Vol] 1.38 10*3/uL High 0.10-1.20 [facility] Comment on above: Performed By: #### C DP, BMPX #### [place] [address] Improvement Analyst: Ramon Hussein MD Monocytes/100 WBC (Bld) 13 % High 3-12 [facility] Comment on above: Performed By: #### C DP, BMPX #### [place] [address] Improvement Analyst: Ramon Hussein MD Neutrophil (Seg) 77 % High 36-65 [facility] Comment on above: Performed By: #### C DP, BMPX #### [place] [address] Improvement Analyst: Ramon Hussein MD NRBC Automated 0.0 per 100 WBC Normal 0.0 [facility] Comment on above: Performed By: #### C DP, BMPX #### [place] [address] Improvement Analyst: Ramon Hussein MD Platelet mean volume (Bld) [Entitic vol] 10.1 fL Normal 8.1-13.5 [facility] Comment on above: Performed By: #### C DP, BMPX #### [facility] [place] [address] Improvement Analyst: Ramon Hussein MD Platelets (Bld) [#/Vol] 251 10*3/uL Normal 138-453 [facility] Comment on above: Performed By: #### C DP, BMPX #### [facility] [address] [place] [address] Improvement Analyst: Ramon Hussein MD RBC (Bld) [#/Vol] 4.02 10*6/uL Normal 3.95-5.11 [facility] Comment on above: Performed By: #### C DP, BMPX #### [facility] [address] [place] [address] Improvement Analyst: Ramon Hussein MD WBC (Bld) [#/Vol] 10.7 10*3/uL Normal 3.5-11.3 [facility] Comment on above: Performed By: #### C DP, BMPX #### [facility] [address] [place] [address] Improvement Analyst: Ramon Hussein MD Basic Metab w/rfx MGon 04-17 Anion gap [Moles/Vol] 14 mmol/L Normal 9-17 [facility] Comment on above: Performed By: #### C DP, BMPX #### [facility] [address] [place] [address] Improvement Analyst: Ramon Hussein MD Calcium [Mass/Vol] 8.7 mg/dL Normal 8.6-10.4 [facility] Comment on above: Performed By: #### C DP, BMPX #### [facility] [address] [place] [address] Improvement Analyst: Ramon Hussein MD Chloride [Moles/Vol] 108 mmol/L High 98-107 [facility] Comment on above: Performed By: #### C DP, BMPX #### [facility] [address] [place] [address] Improvement Analyst: Ramon Hussein MD CO2 [Moles/Vol] 19 mmol/L Low 20-31 [facility] Comment on above: Performed By: #### C DP, BMPX #### [address] [address] Improvement Analyst: Ramon Hussein MD Creatinine [Mass/Vol] 1.6 mg/dL High 0.5-0.9 [facility] Comment on above: Performed By: #### C DP, BMPX #### [address] [address] Improvement Analyst: Ramon Hussein MD GFR/1.73 sq M.predicted among non-blacks MDRD (S/P/Bld) [Vol rate/Area] 34 mL/min/{1.73_m2} Low >60 [facility] Comment on above: Result Comment: These results are not intended for use in patients <18 years of age. eGFR results are calculated without a race factor using the 2020 CKD-EPI equation. Careful clinical correlation is recommended, particularly when comparing to results calculated using previous equations. The CKD-EPI equation is less accurate in patients with extremes of muscle mass, extra-renal metabolism of creatine, excessive creatine ingestion, or following therapy that affects renal tubular secretion. Performed By: #### C DP, BMPX #### [address] [address] Improvement Analyst: Ramon Hussein MD Glucose [Mass/Vol] 98 mg/dL Normal 70-99 [facility] Comment on above: Performed By: #### C DP, BMPX #### [facility] [address] [place] [address] Improvement Analyst: Ramon Hussein MD Potassium [Moles/Vol] 3.9 mmol/L Normal 3.7-5.3 [facility] Comment on above: Performed By: #### C DP, BMPX #### [facility] [address] [place] [address] Improvement Analyst: Ramon Hussein MD Sodium [Moles/Vol] 141 mmol/L Normal 135-144 [facility] Comment on above: Performed By: #### C DP, BMPX #### [address] [address] Improvement Analyst: Ramon Hussein MD Urea nitrogen [Mass/Vol] 21 mg/dL Normal 8-23 [facility] Comment on above: Performed By: #### C DP, BMPX #### [facility] [address] [place] [address] Improvement Analyst: Ramon Hussein MD CBC with Diffon 04-17-2023 Abs. Basophil 0.00 k/uL Normal 0.0-0.2 [facility] Comment on above: Performed By: #### C DP, BMPX #### [facility] [address] [place] [address] Improvement Analyst: Ramon Hussein MD Abs.Imm.Granulocyt e 0.12 k/uL Normal 0.00-0.30 [facility] Comment on above: Performed By: #### C DP, BMPX #### [facility] [address] [place] [address] Improvement Analyst: Ramon Hussein MD Abs.Neutrophil (Seg) 9.52 k/uL High 1.8-7.7 [facility] Comment on above: Performed By: #### C DP, BMPX #### [facility] [address] [place] [address] Improvement Analyst: Ramon Hussein MD Basophils/100 WBC (Bld) 0 % Normal 0-2 [facility] Comment on above: Performed By: #### C DP, BMPX #### [facility] [address] [place] [address] Improvement Analyst: Ramon Husesin MD Eosinophils (Bld) [#/Vol] 0.12 10*3/uL Normal 0.0-0.4 [facility] Comment on above: Performed By: #### C DP, BMPX #### [address] [address] Improvement Analyst: Ramon Hussein MD Eosinophils/100 WBC (Bld) 1 % Normal 1-4 [facility] Comment on above: Performed By: #### C DP, BMPX #### [address] [address] Improvement Analyst: Ramon Hussein MD Immature granulocytes/100 WBC (Bld) 1 % High 0 [facility] Comment on above: Performed By: #### C DP, BMPX #### [address] [address] Improvement Analyst: Ramon Hussein MD Lymphocytes (Bld) [#/Vol] 0.71 10*3/uL Low 1.0-4.8 [facility] Comment on above: Performed By: #### C DP, BMPX #### [address] [address] Improvement Analyst: Ramon Hussein MD Lymphocytes/100 WBC (Bld) 6 % Low 24-44 [facility] Comment on above: Performed By: #### C DP, BMPX #### [address] [address] Improvement Analyst: Ramon Hussein MD Monocytes (Bld) [#/Vol] 1.43 10*3/uL High 0.1-0.8 [facility] Comment on above: Performed By: #### C DP, BMPX #### [facility] [address] [place] [address] Improvement Analyst: Ramon Hussein MD Monocytes/100 WBC (Bld) 12 % High 1-7 [facility] Comment on above: Performed By: #### C DP, BMPX #### [facility] [address] [place] [address] Improvement Analyst: Ramon Hussein MD Morphology Jose Cruz (Bld) [Interp] Normal Normal [facility] Comment on above: Performed By: #### C DP, BMPX #### [facility] [address] [place] [address] Improvement Analyst: Ramon Hussein MD Neutrophil (Seg) 80 % High 36-66 [facility] Comment on above: Performed By: #### C DP, BMPX #### [facility] [address] [place] [address] Improvement Analyst: Ramon Hussein MD Erythrocyte distribution width (RBC) [Ratio] 14.0 % Normal 11.8-14.4 [facility] Comment on above: Performed By: #### C DP, BMPX #### [facility] [address] [place] [address] Improvement Analyst: Ramon Hussein MD Hematocrit (Bld) [Volume fraction] 39.4 % Normal 36.3-47.1 [facility] Comment on above: Performed By: #### C DP, BMPX #### [facility] [address] [place] [address] Improvement Analyst: Ramon Hussein MD Hemoglobin (Bld) [Mass/Vol] 12.2 g/dL Normal 11.9-15.1 [facility] Comment on above: Performed By: #### C DP, BMPX #### [facility] [address] [place] [address] Improvement Analyst: Ramon Hussein MD MCH (RBC) [Entitic mass] 30.2 pg Normal 25.2-33.5 [facility] Comment on above: Performed By: #### C DP, BMPX #### [address] [address] Improvement Analyst: Ramon Hussein MD MCHC (RBC) [Mass/Vol] 31.0 g/dL Normal 28.4-34.8 [facility] Comment on above: Performed By: #### C DP, BMPX #### [address] [address] Improvement Analyst: Ramon Hussein MD MCV (RBC) [Entitic vol] 97.5 fL Normal 82.6-102.9 [facility] Comment on above: Performed By: #### C DP, BMPX #### [address] [address] Improvement Analyst: Ramon Hussein MD NRBC Automated 0.0 per 100 WBC Normal 0.0 [facility] Comment on above: Performed By: #### C DP, BMPX #### [address] [address] Improvement Analyst: Ramon Hussein MD Platelet mean volume (Bld) [Entitic vol] 9.9 fL Normal 8.1-13.5 [facility] Comment on above: Performed By: #### C DP, BMPX #### [address] [address] Improvement Analyst: Ramon Hussein MD Platelets (Bld) [#/Vol] 270 10*3/uL Normal 138-453 [facility] Comment on above: Performed By: #### C DP, BMPX #### [address] [address] Improvement Analyst: Ramon Hussein MD RBC (Bld) [#/Vol] 4.04 10*6/uL Normal 3.95-5.11 [facility] Comment on above: Performed By: #### C DP, BMPX #### [address] [address] Improvement Analyst: Ramon Hussein MD WBC (Bld) [#/Vol] 11.9 10*3/uL High 3.5-11.3 [facility] Comment on above: Performed By: #### C DP, BMPX #### [address] [address] Improvement Analyst: Ramon Hussein MD Hemoglobin A1Con 04-17-2023 Glucose [Mass/Vol] 120 mg/dL Normal [facility] Comment on above: Result Comment: The ADA and AACC recommend providing the estimated average glucose result to permit better patient understanding of their HBA1c result. Performed By: #### C DP, BMP #### [facility] [address] [place] [address] Improvement Analyst: Ramon Hussein MD HbA1c (Bld) [Mass fraction] 5.8 % Normal 4.0-6.0 [facility] Comment on above: Performed By: #### C DP, BMP #### [address] [address] Improvement Analyst: Ramon Hussein MD PTon 04-17-2023 INR Coag (PPP) [Relative time] 1.1 {INR} Normal [facility] Comment on above: Result Comment: Therapeutic Range: Moderate Anticoagulant Intensity: INR = 2.0-3.0 High Anticoagulant Intensity: INR = 2.5-3.5 Performed By: #### P E #### [address] [address] Improvement Analyst: Ramon Hussein MD PT Coag (PPP) [Time] 14.2 s Normal 11.7-14.9 [facility] Comment on above: Performed By: #### P E #### [address] [address] Improvement Analyst: Ramon Hussein MD Troponinon 04-17-2023 Troponin, High Sens 16 ng/L High 0-14 [facility] Comment on above: Result Comment: High Sensitivity Troponin values cannot be compared with other Troponin methodologies. Performed By: #### C DP, BMPX #### [facility] [address] [place] [address] Improvement Analyst: Ramon Hussein MD Basic Metabolic Profon 04-16 Anion gap [Moles/Vol] 17 mmol/L Normal 9-17 [facility] Comment on above: Performed By: #### C DP, BMP #### [facility] [address] [place] [address] Improvement Analyst: Ramon Hussein MD Calcium [Mass/Vol] 9.1 mg/dL Normal 8.6-10.4 [facility] Comment on above: Performed By: #### C DP, BMP #### [facility] [address] [place] [address] Improvement Analyst: Ramon Hussein MD Chloride [Moles/Vol] 107 mmol/L Normal 98-107 [facility] Comment on above: Performed By: #### C DP, BMP #### [facility] [address] [place] [address] Improvement Analyst: Ramon Hussein MD CO2 [Moles/Vol] 18 mmol/L Low 20-31 [facility] [facility] Comment on above: Performed By: #### C DP, BMP #### [facility] [address] [place] [address] Improvement Analyst: Ramon Hussein MD Creatinine [Mass/Vol] 1.8 mg/dL High 0.5-0.9 [facility] Comment on above: Performed By: #### C DP, BMP #### [facility] [address] [place] [address] Improvement Analyst: Ramon Hussein MD GFR/1.73 sq M.predicted among non-blacks MDRD (S/P/Bld) [Vol rate/Area] 30 mL/min/{1.73_m2} Low >60 [facility] Comment on above: Result Comment: These results are not intended for use in patients <18 years of age. eGFR results are calculated without a race factor using the 2020 CKD-EPI equation. Careful clinical correlation is recommended, particularly when comparing to results calculated using previous equations. The CKD-EPI equation is less accurate in patients with extremes of muscle mass, extra-renal metabolism of creatine, excessive creatine ingestion, or following therapy that affects renal tubular secretion. Performed By: #### C DP, BMP #### [facility] [address] [place] [address] Improvement Analyst: Ramon Hussein MD Glucose [Mass/Vol] 94 mg/dL Normal 70-99 [facility] Comment on above: Performed By: #### C DP, BMP #### [facility] [address] [place] [address] 1939[address] Improvement Analyst: Ramon Hussein MD Potassium [Moles/Vol] 4.1 mmol/L Normal 3.7-5.3 [facility] Comment on above: Performed By: #### C DP, BMP #### [address] [address] Improvement Analyst: Ramon Hussein MD Sodium [Moles/Vol] 142 mmol/L Normal 135-144 [facility] Comment on above: Performed By: #### C DP, BMP #### [facility] [address] [place] [address] 14[address] Improvement Analyst: Ramon Hussein MD Urea nitrogen [Mass/Vol] 21 mg/dL Normal 8-23 [facility] Comment on above: Performed By: #### C DP, BMP #### [facility] [address] [place] [address] Improvement Analyst: Ramon Hussein MD CBC with Diffon 04-16-2023 Abs. Basophil 0.03 k/uL Normal 0.00-0.20 [facility] Comment on above: Performed By: #### C DP, BMP #### [address] [address] Improvement Analyst: Ramon Hussein MD Abs.Imm.Granulocyt e 0.05 k/uL Normal 0.00-0.30 [facility] Comment on above: Performed By: #### C DP, BMP #### [place] [address] Improvement Analyst: Ramon Hussein MD Abs.Neutrophil (Seg) 9.52 k/uL High 1.50-8.10 [facility] Comment on above: Performed By: #### C DP, BMP #### [address] [address] Improvement Analyst: Ramon Hussein MD Basophils/100 WBC (Bld) 0 % Normal 0-2 [facility] Comment on above: Performed By: #### C DP, BMP #### [address] [address] Improvement Analyst: Ramon uHssein MD Eosinophils (Bld) [#/Vol] 0.07 10*3/uL Normal 0.00-0.44 [facility] Comment on above: Performed By: #### C DP, BMP #### [address] [address] Improvement Analyst: Ramon Hussein MD Eosinophils/100 WBC (Bld) 1 % Normal 1-4 [facility] Comment on above: Performed By: #### C DP, BMP #### [place] [address] Improvement Analyst: Ramon Hussein MD Erythrocyte distribution width (RBC) [Ratio] 14.1 % Normal 11.8-14.4 [facility] Comment on above: Performed By: #### C DP, BMP #### [place] [address] Improvement Analyst: Ramon Hussein MD Hematocrit (Bld) [Volume fraction] 40.9 % Normal 36.3-47.1 [facility] Comment on above: Performed By: #### C DP, BMP #### [address] [address] Improvement Analyst: Ramon Hussein MD Hemoglobin (Bld) [Mass/Vol] 12.5 g/dL Normal 11.9-15.1 [facility] Comment on above: Performed By: #### C DP, BMP #### [address] [address] Improvement Analyst: Ramon Hussein MD Immature granulocytes/100 WBC (Bld) 0 % Normal 0 [facility] Comment on above: Performed By: #### C DP, BMP #### [address] [address] Improvement Analyst: Ramon Hussein MD Lymphocytes (Bld) [#/Vol] 0.86 10*3/uL Low 1.10-3.70 [facility] Comment on above: Performed By: #### C DP, BMP #### [address] [address] Improvement Analyst: Ramon Hussein MD Lymphocytes/100 WBC (Bld) 7 % Low 24-43 [facility] Comment on above: Performed By: #### C DP, BMP #### [facility] [address] [place] [address] Improvement Analyst: Ramon Hussein MD MCH (RBC) [Entitic mass] 31.2 pg Normal 25.2-33.5 [facility] Comment on above: Performed By: #### C DP, BMP #### [facility] [address] [place] [address] Improvement Analyst: Ramon Hussein MD MCHC (RBC) [Mass/Vol] 30.6 g/dL Normal 28.4-34.8 [facility] Comment on above: Performed By: #### C DP, BMP #### [address] [address] Improvement Analyst: Ramon Hussein MD MCV (RBC) [Entitic vol] 102.0 fL Normal 82.6-102.9 [facility] Comment on above: Performed By: #### C DP, BMP #### [place] [address] Improvement Analyst: Ramon Hussein MD Monocytes (Bld) [#/Vol] 1.36 10*3/uL High 0.10-1.20 [facility] Comment on above: Performed By: #### C DP, BMP #### [place] [address] Improvement Analyst: Ramon Hussein MD Monocytes/100 WBC (Bld) 11 % Normal 3-12 [facility] Comment on above: Performed By: #### C DP, BMP #### [place] [address] Improvement Analyst: Ramon Hussein MD Neutrophil (Seg) 81 % High 36-65 [facility] Comment on above: Performed By: #### C DP, BMP #### [place] [address] Improvement Analyst: Ramon Hussein MD NRBC Automated 0.0 per 100 WBC Normal 0.0 [facility] Comment on above: Performed By: #### C DP, BMP #### [place] [address] Improvement Analyst: Ramon Hussein MD Platelet mean volume (Bld) [Entitic vol] 9.7 fL Normal 8.1-13.5 [facility] Comment on above: Performed By: #### C DP, BMP #### [facility] [address] [place] [address] 19656 Improvement Analyst: Ramon Hussein MD Platelets (Bld) [#/Vol] 296 10*3/uL Normal 138-453 [facility] Comment on above: Performed By: #### C DP, BMP #### [facility] [address] [place] [address] Improvement Analyst: Ramon Hussein MD RBC (Bld) [#/Vol] 4.01 10*6/uL Normal 3.95-5.11 [facility] Comment on above: Performed By: #### C DP, BMP #### [facility] [address] [place] [address] Improvement Analyst: Ramon Hussein MD WBC (Bld) [#/Vol] 11.9 10*3/uL High 3.5-11.3 [facility] Comment on above: Performed By: #### C DP, BMP #### [facility] [address] [place] [address] Improvement Analyst: Ramon Hussein MD Comp Metabolic Profon 2022 Albumin [Mass/Vol] 3.4 g/dL Low 3.5-5.2 [facility] Comment on above: Performed By: #### C DP, BMP #### [facility] [address] [place] [address] Improvement Analyst: Ramon Hussein MD Albumin/Glob Ratio 0.9 Low 1.0-2.5 [facility] Comment on above: Performed By: #### C DP, BMP #### [facility] [address] [place] [address] Improvement Analyst: Ramon Hussein MD Alkaline Phos 91 U/L Normal 35-104 [facility] Comment on above: Performed By: #### C DP, BMP #### [facility] [address] [place] [address] Improvement Analyst: Ramon Hussein MD ALT [Catalytic activity/Vol] 8 U/L Normal 5-33 [facility] Comment on above: Performed By: #### C DP, BMP #### [facility] [address] [place] [address] Improvement Analyst: Ramon Hussein MD Anion gap [Moles/Vol] 19 mmol/L High 9-17 [facility] Comment on above: Performed By: #### C DP, BMP #### [facility] [address] [place] [address] Improvement Analyst: Ramon Hussein MD AST [Catalytic activity/Vol] 13 U/L Normal <32 [facility] Comment on above: Performed By: #### C DP, BMP #### [facility] [address] [place] [address] Improvement Analyst: Ramon Hussein MD Bilirubin [Mass/Vol] 0.6 mg/dL Normal 0.3-1.2 [facility] Comment on above: Performed By: #### C DP, BMP #### [facility] [address] [place] [address] Improvement Analyst: Ramon Hussein MD Calcium [Mass/Vol] 8.9 mg/dL Normal 8.6-10.4 [facility] Comment on above: Performed By: #### C DP, BMP #### [facility] [address] [place] [address]390 Improvement Analyst: Ramon Hussein MD Chloride [Moles/Vol] 108 mmol/L High 98-107 [facility] Comment on above: Performed By: #### C DP, BMP #### [facility] [address] [place] [address] Improvement Analyst: Ramon Hussein MD CO2 [Moles/Vol] 15 mmol/L Low 20-31 [facility] Comment on above: Performed By: #### C DP, BMP #### [facility] [address] [place] [address] Improvement Analyst: Ramon Hussein MD Creatinine [Mass/Vol] 1.9 mg/dL High 0.5-0.9 [facility] Comment on above: Performed By: #### C DP, BMP #### [address] [address] Improvement Analyst: Ramon Hussein MD GFR/1.73 sq M.predicted among non-blacks MDRD (S/P/Bld) [Vol rate/Area] 28 mL/min/{1.73_m2} Low >60 [facility] Comment on above: Result Comment: These results are not intended for use in patients <18 years of age. eGFR results are calculated without a race factor using the 2020 CKD-EPI equation. Careful clinical correlation is recommended, particularly when comparing to results calculated using previous equations. The CKD-EPI equation is less accurate in patients with extremes of muscle mass, extra-renal metabolism of creatine, excessive creatine ingestion, or following therapy that affects renal tubular secretion. Performed By: #### C DP, BMP #### [address] [address] Improvement Analyst: Ramon Hussein MD Glucose [Mass/Vol] 103 mg/dL High 70-99 [facility] Comment on above: Performed By: #### C DP, BMP #### [facility] [address] [place] [address] Improvement Analyst: Ramon Hussein MD Potassium [Moles/Vol] 4.3 mmol/L Normal 3.7-5.3 [facility] Comment on above: Performed By: #### C DP, BMP #### [facility] [address] [place] [address] Improvement Analyst: Ramon Hussein MD Protein [Mass/Vol] 7.0 g/dL Normal 6.4-8.3 [facility] Comment on above: Performed By: #### C DP, BMP #### [facility] [address] [place] [address]32[address] Improvement Analyst: Ramon Hussein MD Sodium [Moles/Vol] 142 mmol/L Normal 135-144 [facility] Comment on above: Performed By: #### C DP, BMP #### [facility] [address] [place] [address] Improvement Analyst: Ramon Hussein MD Urea nitrogen [Mass/Vol] 24 mg/dL High 8-23 [facility] Comment on above: Performed By: #### C DP, BMP #### [facility] [address] [place] [address] Improvement Analyst: Ramon Hussein MD Creatine Kinaseon 04-16-2023 CK [Catalytic activity/Vol] 119 U/L Normal 26-192 [facility] Comment on above: Performed By: #### C DP, BMP #### [facility] [address] [place] [address] Improvement Analyst: Ramon Hussein MD Lactic Acidon 04-16-2023 Lactic Acid,Whole Bl 1.1 mmol/L Normal 0.7-2.1 [facility] Comment on above: Performed By: #### C DP, BMP #### [facility] [address] [place] [address] Improvement Analyst: Ramon Hussein MD Lipid Profileon 04-16-2023 Cholesterol [Mass/Vol] 156 mg/dL Normal <200 [facility] Comment on above: Result Comment: Cholesterol Guidelines: <200 Desirable 200-240 Borderline >240 Undesirable Performed By: #### C DP, BMP #### [facility] [address] [place] [address] Improvement Analyst: Ramon Hussein MD Cholesterol in HDL [Mass/Vol] 40 mg/dL Low >40 [facility] Comment on above: Result Comment: HDL Guidelines: <40 Undesirable 40-59 Borderline >59 Desirable Performed By: #### C DP, BMP #### [facility] [address] [place] [address] [phone] Improvement Analyst: Ramon Hussein MD Cholesterol in LDL [Mass/Vol] 94 mg/dL Normal 0-130 [facility] Comment on above: Result Comment: LDL Guidelines: <100 Desirable 100-129 Near to/above Desirable 130-159 Borderline >159 Undesirable Direct (measured) LDL and calculated LDL are not interchangeable tests. Performed By: #### C DP, BMP #### [facility] [address] [place] [address] [phone] Improvement Analyst: Ramon Hussein MD Cholesterol.total/ Cholesterol in HDL [Mass ratio] 3.9 {ratio} Normal <5 [facility] Comment on above: Performed By: #### C DP, BMP #### [facility] [address] [place] [address] [phone] Improvement Analyst: Ramon Hussein MD Triglyceride [Mass/Vol] 111 mg/dL Normal <150 [facility] Comment on above: Result Comment: Triglyceride Guidelines: <150 Desirable 150-199 Borderline 200-499 High >499 Very high Based on AHA Guidelines for fasting triglyceride, May 2012. Performed By: #### C DP, BMP #### [facility] [address] [place] [address] [phone] Improvement Analyst: Ramon Hussein MD MRA HEAD WO CONTRASTon 04-16 MRA HEAD WO CONTRAST EXAMINATION: MRI OF THE BRAIN WITHOUT CONTRAST AND MRA HEAD WITHOUT CONTRAST 04/16/2023 12:16 pm TECHNIQUE: Multiplanar multisequence MRI of the brain was performed without the administration of intravenous contrast. MRA of the head was performed utilizing [id number] imaging with MIP images. No intravenous contrast was administered. COMPARISON: CT brain performed 04/16/2023. HISTORY: ORDERING SYSTEM PROVIDED HISTORY: L frontal IP TECHNOLOGIST PROVIDED HISTORY: L frontal IPH Reason for Exam: L frontal IP FINDINGS: MRI BRAIN: INTRACRANIAL STRUCTURES/VENTRICLES: The sellar and suprasellar structures, optic chiasm, corpus callosum, pineal gland, tectum, and midline brainstem structures are unremarkable. The craniocervical junction is unremarkable. There is redemonstration an intraparenchymal hemorrhage in the left frontal lobe with adjacent edema. There is underlying chronic microvascular disease. The ventricles are symmetric. Infratentorial structures including the cerebellopontine angles and internal auditory canals are unremarkable. There is no abnormal restricted diffusion. There are scattered punctate foci of blooming artifact on susceptibility weighted imaging. ORBITS: The visualized portion of the orbits demonstrate no acute abnormality. SINUSES: The visualized paranasal sinuses and mastoid air cells are well aerated. BONES/SOFT TISSUES: The bone marrow signal intensity appears normal. The soft tissues demonstrate no acute abnormality. MRA HEAD: ANTERIOR CIRCULATION: No significant stenosis of the intracranial internal carotid, anterior cerebral, or middle cerebral arteries. POSTERIOR CIRCULATION: No significant stenosis of the vertebral, basilar, or posterior cerebral arteries. ANEURYSM: No intracranial aneurysm is seen. IMPRESSION: Redemonstration of an intraparenchymal hemorrhage in the left frontal lobe with adjacent edema. Scattered punctate foci of blooming artifact on susceptibility weighted imaging is nonspecific and differential considerations include amyloid angiopathy and hypertensive microangiopathy. Unremarkable MRA of the brain. Interpreted by: Prakash Trujillo MD Signed by: Prakash Trujillo MD 04/16/23 Final result Normal [facility] MRI BRAIN WO CONTRASTon MRI BRAIN WO CONTRAST EXAMINATION: MRI OF THE BRAIN WITHOUT CONTRAST AND MRA HEAD WITHOUT CONTRAST 04/16/2023 12:16 pm TECHNIQUE: Multiplanar multisequence MRI of the brain was performed without the administration of intravenous contrast. MRA of the head was performed utilizing [id number] imaging with MIP images. No intravenous contrast was administered. COMPARISON: CT brain performed 04/16/2023. HISTORY: ORDERING SYSTEM PROVIDED HISTORY: L frontal IPH TECHNOLOGIST PROVIDED HISTORY: L frontal IPH Reason for Exam: L frontal IPH FINDINGS: MRI BRAIN: INTRACRANIAL STRUCTURES/VENTRICLES: The sellar and suprasellar structures, optic chiasm, corpus callosum, pineal gland, tectum, and midline brainstem structures are unremarkable. The craniocervical junction is unremarkable. There is redemonstration an intraparenchymal hemorrhage in the left frontal lobe with adjacent edema. There is underlying chronic microvascular disease. The ventricles are symmetric. Infratentorial structures including the cerebellopontine angles and internal auditory canals are unremarkable. There is no abnormal restricted diffusion. There are scattered punctate foci of blooming artifact on susceptibility weighted imaging. ORBITS: The visualized portion of the orbits demonstrate no acute abnormality. SINUSES: The visualized paranasal sinuses and mastoid air cells are well aerated. BONES/SOFT TISSUES: The bone marrow signal intensity appears normal. The soft tissues demonstrate no acute abnormality. MRA HEAD: ANTERIOR CIRCULATION: No significant stenosis of the intracranial internal carotid, anterior cerebral, or middle cerebral arteries. POSTERIOR CIRCULATION: No significant stenosis of the vertebral, basilar, or posterior cerebral arteries. ANEURYSM: No intracranial aneurysm is seen. IMPRESSION: Redemonstration of an intraparenchymal hemorrhage in the left frontal lobe with adjacent edema. Scattered punctate foci of blooming artifact on susceptibility weighted imaging is nonspecific and differential considerations include amyloid angiopathy and hypertensive microangiopathy. Unremarkable MRA of the brain. Interpreted by: Prakash Trujillo MD Signed by: Prakash Trujillo MD 04/16/23 Final result Normal [facility] MRV HEAD WO CONTRASTon 04-16 MRV HEAD WO CONTRAST EXAMINATION: MRV OF THE HEAD WITHOUT CONTRAST 04/16/2023: TECHNIQUE: Multiplanar multisequence MRV of the head was performed without the administration of intravenous contrast. COMPARISON: None. HISTORY: ORDERING SYSTEM PROVIDED HISTORY: left frontal IPH TECHNOLOGIST PROVIDED HISTORY: left frontal IPH Reason for Exam: L frontal IPH FINDINGS: No focal stenosis or thrombus is seen of the major dural venous sinuses. IMPRESSION: Unremarkable MRV of the head. Interpreted by: Angelito Mora MD Signed by: Angelito Mora MD 04/16/23 Final result Normal [facility] Myoglobinon 04-16-2023 Myoglobin [Mass/Vol] 136 ng/mL High 25-58 [facility] Comment on above: Performed By: #### [facility] #### [facility] [place] [address] Improvement Analyst: Ramon Hussein MD TSH w/reflex to FT4on 2022 Thyroid Stim. Horm. 1.75 uIU/mL Normal 0.30-5.00 [facility] Comment on above: Performed By: #### C DP, BMP #### [facility] [address] [place] [address] Improvement Analyst: Ramon Hussein MD Troponinon 04-16-2023 Troponin, High Sens 18 ng/L High 0-14 [facility] Comment on above: Result Comment: High Sensitivity Troponin values cannot be compared with other Troponin methodologies. Performed By: #### C DP, BMP #### [facility] [address] [place] [address] Improvement Analyst: Ramon Hussein MD Troponin, High Sens 17 ng/L High 0-14 [facility] Comment on above: Result Comment: High Sensitivity Troponin values cannot be compared with other Troponin methodologies. Performed By: #### C DP, BMP #### [facility] [address] [place] [address] Improvement Analyst: Ramon Hussein MD UA w/Reflex Cultureon 2022 Bilirubin, SemiQt,Ur Negative Normal NEG [facility] Comment on above: Performed By: #### C DP, BMP #### [facility] [address] [place] [address] Improvement Analyst: Ramon Hussein MD Blood, Urine MODERATE Abnormal NEG [facility] Comment on above: Performed By: #### C DP, BMP #### [facility] [address] [place] [address] Improvement Analyst: Ramon Hussein MD Clarity (U) Clear Normal CLEAR [facility] Comment on above: Performed By: #### C DP, BMP #### [facility] [address] [place] [phone] Improvement Analyst: Ramon Hussein MD Color (U) Yellow Normal YEL [facility] Comment on above: Performed By: #### C DP, BMP #### [facility] [address] [place] [address]473 Improvement Analyst: Ramon Hussein MD Glucose Ql (U) Negative Normal NEG [facility] Comment on above: Performed By: #### C DP, BMP #### [address] [address] Improvement Analyst: Ramon Hussein MD Ketones Ql (U) SMALL Abnormal NEG [facility] Comment on above: Performed By: #### C DP, BMP #### [address] [address] Improvement Analyst: Ramon Hussein MD Leukocyte esterase Test strip Ql (U) TRACE Abnormal NEG [facility] Comment on above: Performed By: #### C DP, BMP #### [address] [address] Improvement Analyst: Ramon Hussein MD Nitrite,Ur Negative Normal NEG [facility] Comment on above: Performed By: #### C DP, BMP #### [address] [address] Improvement Analyst: Ramon Hussein MD PH,Ur 6.5 Normal 5.0-8.0 [facility] Comment on above: Performed By: #### C DP, BMP #### [address] [address] Improvement Analyst: Ramon Hussein MD Protein Ql (U) 3+ mg/dL Abnormal NEG [facility] Comment on above: Performed By: #### C DP, BMP #### [facility] [address] [place] [address] Improvement Analyst: Ramon Hussein MD Spec. Camino,Ur 1.012 Normal 1.005-1.030 [facility] Comment on above: Performed By: #### C DP, BMP #### [address] [address] Improvement Analyst: Ramon Hussein MD Urobilinogen,Ur Normal Normal 0.0-1.0 [facility] Comment on above: Performed By: #### C DP, BMP #### [facility] [address] [place] [address] Improvement Analyst: Ramon Hussein MD US RENAL COMPLETEon 04-16-20 23 US RENAL COMPLETE EXAMINATION: RETROPERITONEAL ULTRASOUND OF THE KIDNEYS AND URINARY BLADDER 04/16/2023 COMPARISON: None HISTORY: ORDERING SYSTEM PROVIDED HISTORY: HERLINDA, eval for hydronephrosis TECHNOLOGIST PROVIDED HISTORY: HERLINDA, eval for hydronephrosis FINDINGS: Kidneys: The right kidney measures 9.5 cm in length and the left kidney measures 10.2 cm in length. Kidneys demonstrate normal cortical echogenicity. No evidence of hydronephrosis or intrarenal stones. Bladder: The bladder is only mildly distended, but unremarkable. IMPRESSION: 1. No evidence of hydronephrosis. Interpreted by: Johnnie Ramsey MD Signed by: Johnnie Ramsey MD 04/16/23 Final result Normal [facility] Urinalysis,Microon 3 Casts 2 TO 5 Normal 0-2 [facility] Comment on above: Result Comment: HYAL INE Performed By: #### C DP, BMP #### [facility] [address] [place] [address] Improvement Analyst: Ramon Hussein MD Epithelial cells LM Ql (Urine sed) 2 TO 5 Normal 0-5 [facility] Comment on above: Performed By: #### C DP, BMP #### [employer] [address] [place], [place] [id number] Improvement Analyst: Ramon Hussein MD Urine RBC's 20 TO 50 Normal 0-2 [facility] Comment on above: Performed By: #### C DP, BMP #### [facility] [address] [place], [place] [id number] Improvement Analyst: Ramon Hussein MD Urine WBC's 5 TO 10 Normal 0-5 [facility] Comment on above: Performed By: #### C DP, BMP #### [facility] [place] [address] Improvement Analyst: Ramon Hussein MD PTH INTACTon 12-17-2022 PTH, Intact 69 pg/mL Critically high 15-65 [facility] Comment on above: Performed By: #### F ERR, VITAD, FETIBC #### [facility] [address] [place] [address] Dr. Catarino Curran FERRITINon 12-16-2022 Ferritin [Mass/Vol] 72.0 ng/mL Normal 8.0-252.0 [facility] Comment on above: Performed By: #### F ERR, VITAD, FETIBC #### [facility] [address] [place] [address] Dr. Catarino Curran HEMOGRAM AND PLATELon 2022 Hematocrit (Bld) [Volume fraction] 40.8 % Normal 36.0-48.0 [facility] Comment on above: Performed By: #### H H #### [facility] [address] [place] [address] Dr. Catarino Curran Hemoglobin (Bld) [Mass/Vol] 13.3 g/dL Normal 12.0-16.0 [facility] Comment on above: Performed By: #### H H #### [facility] [address] [place] [address] Dr. Catarino Curran MCH (RBC) [Entitic mass] 30.6 pg Normal 26.7-34.0 [facility] Comment on above: Performed By: #### H H #### [facility] [address] [place] [address] Dr. Catarino Curran MCHC (RBC) [Mass/Vol] 32.6 g/dL Normal 29.9-35.[address] [facility] Comment on above: Performed By: #### H H #### [facility] [address] [place] [address] Dr. Catarino Curran MCV (RBC) [Entitic vol] 94.0 fL Normal 81.0-99.0 [facility] Comment on above: Performed By: #### H H #### [facility] [address] [address] [address] Catarino Curran PLT 277 103/ul Normal 150-[address] [facility] Comment on above: Performed By: #### H H #### [facility] [address] [place] [address] Dr. Catarino Curran RBC 4.34 106/ul Normal 4.20-5.[address] [facility] Comment on above: Performed By: #### H H #### [facility] [address] [place] [address] Dr. Catarino Curran WBC 9.0 103/ul Normal 4.0-11.[address] [facility] Comment on above: Performed By: #### H H #### [facility] [address] [place] [address] Dr. Catarino Curran IRON AND TIBCon 12-16-2022 % SATURATION 27.5 % Normal [facility] Comment on above: Performed By: #### F ERR, VITAD, FETIBC #### [facility] [address] [place] [address] Dr. Catarino Curran Iron [Mass/Vol] 86.0 ug/dL Normal 50.0-170.0 [facility] Comment on above: Performed By: #### F ERR, VITAD, FETIBC #### [facility] [address] [place] [address] Dr. Catarino Curran TIBC DIRECT 313.0 ug/dL Normal 250.0-450.0 [facility] Comment on above: Performed By: #### F ERR, VITAD, FETIBC #### [facility] [address] [place] [address] Dr. Catarino Curran MAGNESIUMon 12-16-2022 Magnesium [Mass/Vol] 2.1 mg/dL Normal 1.8-2.[address] [facility] Comment on above: Performed By: #### F ERR, VITAD, FETIBC #### [facility] [address] [place] [address] Dr. Catarino Curran RENAL FUNCTION PANELon 12-16 Albumin [Mass/Vol] 3.2 g/dL Critically low 3.4-5.[address] [facility] Comment on above: Performed By: #### F ERR, VITAD, FETIBC #### [facility] [address] [address] [address] Catarino Curran Calcium [Mass/Vol] 8.8 mg/dL Normal 8.5-10.1 [facility] Comment on above: Performed By: #### F ERR, VITAD, FETIBC #### [facility] [address] [address] [address] Catarino Curran Chloride [Moles/Vol] 104 mmol/L Normal 98-107 [facility] Comment on above: Performed By: #### F ERR, VITAD, FETIBC #### [facility] [address] [place] [address] Dr. Catarino Curran CO2 [Moles/Vol] 30.4 mmol/L Normal 21.0-32.0 [facility] Comment on above: Performed By: #### F ERR, VITAD, FETIBC #### [facility] [address] [place] [address] Dr. Catarino Curran Creatinine [Mass/Vol] 2.07 mg/dL Critically high 0.55-1.02 [facility] Comment on above: Performed By: #### F ERR, VITAD, FETIBC #### [facility] [address] [place] [address] Dr. Catarino Curran EGFR-AF SWISS 29 mL/min/1.73m2 Critically low >=[address] [facility] Comment on above: Performed By: #### F ERR, VITAD, FETIBC #### [facility] [address] [place] [address] Dr. Catarino Curran EGFR-NON AF SWISS 24 mL/min/1.73m2 Critically low >=60 [facility] Comment on above: Performed By: #### F ERR, VITAD, FETIBC #### [facility] [address] [place] [address] Dr. Catarino Curran Glucose [Mass/Vol] 85 mg/dL Normal 74-106 [facility] Comment on above: Performed By: #### F ERR, VITAD, FETIBC #### [facility] [address] [place] [address] Dr. Catarino Curran Phosphate [Mass/Vol] 3.4 mg/dL Normal 2.6-4.7 [facility] Comment on above: Performed By: #### F ERR, VITAD, FETIBC #### [facility] [address] [place] [address] Dr. Catarino Curran Potassium [Moles/Vol] 3.7 mmol/L Normal 3.5-5.1 [facility] Comment on above: Performed By: #### F ERR, VITAD, FETIBC #### [facility] [address] [place] [address] Dr. Catarino Curran Sodium [Moles/Vol] 139 mmol/L Normal 136-145 [facility] Comment on above: Performed By: #### F ERR, VITAD, FETIBC #### [facility] [address] [place] [address] Dr. Catarino Curran Urea nitrogen [Mass/Vol] 21.0 mg/dL Critically high 7.0-18.[address] [facility] Comment on above: Performed By: #### F ERR, VITAD, FETIBC #### [facility] [address] [place] [address] Dr. Catarino Curran UA RANDOM W/MICROSCOPICon BACTERIA MODERATE Abnormal NONE SEEN [facility] Comment on above: Performed By: #### F ERR, VITAD, FETIBC #### [facility] [address] [place] [address] Dr. Catarino Curran Bilirubin Ql (U) Negative Normal NEGATIVE [facility] Comment on above: Performed By: #### F ERR, VITAD, FETIBC #### [facility] [address] [place] [address] Dr. Catarino Curran CAST NONE SEEN Normal NONE SEEN The [facility] Comment on above: Performed By: #### F ERR, VITAD, FETIBC #### [facility] [address] [place] [address] Dr. Catarino Curran Clarity (U) CLEAR Normal CLEAR [facility] Comment on above: Performed By: #### F ERR, VITAD, FETIBC #### [facility] [address] [place] [address] Dr. Catarino Curran Color (U) LT. YELLOW Normal YELLOW The [facility] Comment on above: Performed By: #### F ERR, VITAD, FETIBC #### [facility] [address] [place] [address] Dr. Catarino Curran Crystals LM Nom (Urine sed) NONE SEEN Normal NONE SEEN [facility] Comment on above: Performed By: #### F ERR, VITAD, FETIBC #### [facility] [address] [place] [address] Dr. Catarino Curran Epithelial cells LM Ql (Urine sed) FEW Abnormal NONE SEEN /RARE The [facility] Comment on above: Performed By: #### F ERR, VITAD, FETIBC #### [facility] [address] [place] [address] Dr. Catarino Curran Glucose Ql (U) Negative Normal NEGATIVE [facility] Comment on above: Performed By: #### F ERR, VITAD, FETIBC #### [facility] [address] [place] [address] Dr. Catarino Curran Hemoglobin Ql (U) TRACE-INTACT Abnormal NEGATIVE [facility] Comment on above: Performed By: #### F ERR, VITAD, FETIBC #### [facility] [address] [place] [address] Dr. Catarino Curran Ketones Ql (U) Negative Normal NEGATIVE [facility] Comment on above: Performed By: #### F ERR, VITAD, FETIBC #### [facility] [address] [place] [address] Dr. Catarino Curran LEUKOCYTES SMALL Abnormal NEGATIVE [facility] Comment on above: Performed By: #### F ERR, VITAD, FETIBC #### [facility] [address] [place] [address] Dr. Catarino Curran MUCOUS NONE SEEN Normal NONE SEEN [facility] Comment on above: Performed By: #### F ERR, VITAD, FETIBC #### [facility] [address] [address] [address] Catarino Curran Nitrite Ql (U) Positive Abnormal NEGATIVE [facility] Comment on above: Performed By: #### F ERR, VITAD, FETIBC #### [facility] [address] [address] [address] Catarino Curran pH (U) 5.5 [pH] Normal 5-[address] [facility] Comment on above: Performed By: #### F ERR, VITAD, FETIBC #### [facility] [address] [address] [address] Catarino Curran RBC 0-2 Normal 0-2 [facility] Comment on above: Performed By: #### F ERR, VITAD, FETIBC #### [facility] [address] [place] [address] Dr. Catarino Curran SPEC GRAVITY 1.025 Normal 1.005-<=1.[address] [place] [address] Comment on above: Performed By: #### F ERR, VITAD, FETIBC #### [facility] [address] [address] [address] Catarino Curran UA PROTEIN >300 Abnormal NEGATIVE/ TRACE The [facility] Comment on above: Performed By: #### F ERR, VITAD, FETIBC #### [facility] [address] [address] [address] Catarino Curran Urobilinogen Qn (U) 0.2 {Jake'U}/dL Normal 0.2 - 1.0 [facility] Comment on above: Performed By: #### F ERR, VITAD, FETIBC #### [facility] [address] [address] [address] Catarino Curran WBC 10-20 Abnormal NONE SEEN The [facility] Comment on above: Performed By: #### F ERR, VITAD, FETIBC #### [facility] [address] [address] [address] Catarino Curran URIC ACID SERUMon 12-16-2022 Urate [Mass/Vol] 7.1 mg/dL Critically high 2.6-6.0 [facility] Comment on above: Performed By: #### F ERR, VITAD, FETIBC #### [facility] [address] [place] [address] Dr. Catarino Curran URINE T PROTEIN CREAT RATIOo n 12-16-2022 Protein (U) [Mass/Vol] 216.7 mg/dL Critically high <=12.0 [facility] Comment on above: Performed By: #### H H #### [facility] [address] [place] [address] Dr. Catarino Curran UR PROT CREAT RAT 1.35 Normal [facility] Comment on above: Performed By: #### H H #### [facility] [address] [place] [address] Dr. Catarino Curran URINE CREAT 160.63 mg/dL Normal 20.00-300.00 [facility] Comment on above: Performed By: #### H H #### [facility] [address] [place] [address] Dr. Catarino Curran VITAMIN D 25 OHon 12-16-2022 VIT D 25-OH 15.0 ng/mL Normal [facility] Comment on above: Performed By: #### F ERR, VITAD, FETIBC #### [facility] [address] [place] [address] Dr. Catarino Curran VIT D RANGES SEE BELOW Normal [facility] Comment on above: Result Comment: <20 ng/mL Vit D deficient 20 - <30 ng/mL Vit D insufficient 30 - 100 ng/mL Vit D sufficient >100 ng/mL Potential Toxicity Performed By: #### F ERR, VITAD, FETIBC #### [facility] [address] [place] [address] Dr. Catarino Curran FREE T3on 09-16-2022 FREE T3 1.93 pg/mlL Critically low 2.18-3.98 [facility] Comment on above: Performed By: #### F ERR, VITAD, FETIBC #### [facility] [address] [place] [address] Dr. Catarino Curran FREE T4on 09-16-2022 Free T4 [Mass/Vol] 1.12 ng/dL Normal 0.76-1.46 [facility] Comment on above: Performed By: #### H H #### [facility] [address] [place] [address] Dr. Catarino Curran TSHon 09-16-2022 TSH 0.389 uIU/mL Normal 0.358-3.740 [facility] Comment on above: Performed By: #### F ERR, VITAD, FETIBC #### [facility] [address] [place] [address] Dr. Catarino Curran RENAL FUNCTION PANELon 08-17 Albumin [Mass/Vol] 3.2 g/dL Critically low 3.4-5.0 [facility] Comment on above: Performed By: #### H H #### [facility] [address] [place] [address] Dr. Catarino Curran Calcium [Mass/Vol] 8.8 mg/dL Normal 8.5-10.1 [facility] Comment on above: Performed By: #### H H #### [facility] [address] [place] [address] Dr. Catarino Curran Chloride [Moles/Vol] 106 mmol/L Normal 98-107 [facility] Comment on above: Performed By: #### H H #### [facility] [address] [place] [address] Dr. Catarino Curran CO2 [Moles/Vol] 29.6 mmol/L Normal 21.0-32.0 [facility] Comment on above: Performed By: #### H H #### [facility] [address] [place] [address] Dr. Catarino Curran Creatinine [Mass/Vol] 1.78 mg/dL Critically high 0.55-1.02 [facility] Comment on above: Performed By: #### H H #### [facility] [address] [place] [address] Dr. Catarino Curran EGFR-AF SWISS 34 mL/min/1.73m2 Critically low >=[address] [facility] Comment on above: Performed By: #### H H #### [facility] [address] [address] [address] Catarino Curran EGFR-NON AF SWISS 28 mL/min/1.73m2 Critically low >=60 [facility] Comment on above: Performed By: #### H H #### [facility] [address] [address] [address] Catarino Curran Glucose [Mass/Vol] 88 mg/dL Normal 74-106 [facility] Comment on above: Performed By: #### H H #### [facility] [address] [address] [address] Catarino Curran Phosphate [Mass/Vol] 3.3 mg/dL Normal 2.6-4.7 [facility] Comment on above: Performed By: #### H H #### [facility] [address] [address] [address] Catarino Curran Potassium [Moles/Vol] 4.0 mmol/L Normal 3.5-5.1 [facility] Comment on above: Performed By: #### H H #### [facility] [address] [address] [address] Catarino Curran Sodium [Moles/Vol] 143 mmol/L Normal 136-145 [facility] Comment on above: Performed By: #### H H #### [facility] [address] [address] [address] Catarino Curran Urea nitrogen [Mass/Vol] 21.0 mg/dL Critically high 7.0-18.[address] [facility] Comment on above: Performed By: #### H H #### [facility] [address] [address] [address] Catarino Curran UA RANDOM W/MICROSCOPICon BACTERIA SMALL Abnormal NONE SEEN The [facility] Comment on above: Performed By: #### F ERR, VITAD, FETIBC #### [facility] [address] [address] [address] Catarino Curran Bilirubin Ql (U) Negative Normal NEGATIVE [facility] Comment on above: Performed By: #### F ERR, VITAD, FETIBC #### [facility] [address] [place] [address] Dr. Catarino Curran CAST NONE SEEN Normal NONE SEEN The [facility] Comment on above: Performed By: #### F ERR, VITAD, FETIBC #### [facility] [address] [place] [address] Dr. Catarino Curran Clarity (U) CLEAR Normal CLEAR [facility] Comment on above: Performed By: #### F ERR, VITAD, FETIBC #### [facility] [address] [address] [address] Catarino Cruran Color (U) LT. YELLOW Normal YELLOW The [facility] Comment on above: Performed By: #### F ERR, VITAD, FETIBC #### [facility] [address] [place] [address] Dr. Catarino Curran Crystals LM Nom (Urine sed) NONE SEEN Normal NONE SEEN The [facility] Comment on above: Performed By: #### F ERR, VITAD, FETIBC #### [facility] [address] [place] [address] Dr. Catarino Curran Epithelial cells LM Ql (Urine sed) RARE Normal NONE SEEN /RARE The [facility] Comment on above: Performed By: #### F ERR, VITAD, FETIBC #### [facility] [address] [place] [address] Dr. Catarino Curran Glucose Ql (U) Negative Normal NEGATIVE [facility] Comment on above: Performed By: #### F ERR, VITAD, FETIBC #### [facility] [address] [address] [address] Catarino Curran Hemoglobin Ql (U) SMALL Abnormal NEGATIVE [facility] Comment on above: Performed By: #### F ERR, VITAD, FETIBC #### [facility] [address] [place] [address] Dr. Catarino Curran Ketones Ql (U) Negative Normal NEGATIVE [facility] Comment on above: Performed By: #### F ERR, VITAD, FETIBC #### [facility] [address] [place] [address] Dr. Catarino Curran LEUKOCYTES SMALL Abnormal NEGATIVE The [facility] Comment on above: Performed By: #### F ERR, VITAD, FETIBC #### [facility] [address] [address] [address] Catarino Curran MUCOUS NONE SEEN Normal NONE SEEN [facility] Comment on above: Performed By: #### F ERR, VITAD, FETIBC #### [facility] [address] [address] [address] Catarino Curran Nitrite Ql (U) Positive Abnormal NEGATIVE [facility] Comment on above: Performed By: #### F ERR, VITAD, FETIBC #### [facility] [address] [address] [address] Catarino Curran pH (U) 5.0 [pH] Normal 5-9 [facility] Comment on above: Performed By: #### F ERR, VITAD, FETIBC #### [facility] [address] [address] [address] Catarino Curran RBC 0-2 Normal 0-[address] [facility] Comment on above: Performed By: #### F ERR, VITAD, FETIBC #### [facility] [address] [address] [address] Catarino Curran SPEC GRAVITY 1.025 Normal 1.005-<=1.02 [address] [facility] Comment on above: Performed By: #### F ERR, VITAD, FETIBC #### [facility] [address] [address] [address] Catarino Curran UA PROTEIN 100 mg/dl Abnormal NEGATIVE/ TRACE The [facility] Comment on above: Performed By: #### F ERR, VITAD, FETIBC #### [facility] [address] [address] [address] Catarino Curran Urobilinogen Qn (U) 0.2 {Jake'U}/dL Normal 0.2 - 1.0 [facility] Comment on above: Performed By: #### F ERR, VITAD, FETIBC #### [facility] [address] [address] [address] Catarino Curran WBC 10-20 Abnormal NONE SEEN The [facility] Comment on above: Performed By: #### F ERR, VITAD, FETIBC #### [facility] [address] [address] [address] Catarino Curran URINE T PROTEIN CREAT RATIOo n 08-17-2022 Protein (U) [Mass/Vol] 157.3 mg/dL Critically high <=12.0 [facility] Comment on above: Performed By: #### F ERR, VITAD, FETIBC #### [facility] [address] [address] [address] Catarino Curran UR PROT CREAT RAT 1.07 Normal [facility] Comment on above: Performed By: #### F ERR VITAD, FETIBC #### [facility] [address] [address] [address] Catarino Curran URINE CREAT 147.50 mg/dL Normal 20.00-300.00 [facility] Comment on above: Performed By: #### F ERR VITAD, FETIBC #### [facility] [address] [place] [address] Dr. Catarino Curran FERRITINon 05-10-2022 Ferritin [Mass/Vol] 147.0 ng/mL Normal 8.0-252.0 [facility] Comment on above: Performed By: #### H H #### [facility] [address] [place] [address] Dr. Catarino Curran HEMOGRAM AND PLATELon 2021 Hematocrit (Bld) [Volume fraction] 38.9 % Normal 36.0-48.0 [facility] Comment on above: Performed By: #### H H #### [facility] [address] [place] [address] Dr. Catarino Curran Hemoglobin (Bld) [Mass/Vol] 12.8 g/dL Normal 12.0-16.[address] [facility] Comment on above: Performed By: #### H H #### [facility] [address] [place] [address] Dr. Catarino Curran MCH (RBC) [Entitic mass] 33.9 pg Normal 26.7-34.0 [facility] Comment on above: Performed By: #### H H #### [facility] [address] [address] [address] Catarino Curran MCHC (RBC) [Mass/Vol] 32.9 g/dL Normal 29.9-35.2 [facility] Comment on above: Performed By: #### H H #### [facility] [address] [address] [address] Catarino Curran MCV (RBC) [Entitic vol] 102.9 fL Critically high 81.0-99.0 [facility] Comment on above: Performed By: #### H H #### [facility] [address] [address] [address] Catarino Curran PLT 345 103/ul Normal 150-450 [facility] Comment on above: Performed By: #### H H #### [facility] [address] [place] [address] Dr. Catarino Curran RBC 3.78 106/ul Critically low 4.20-5.40 [facility] Comment on above: Performed By: #### H H #### [facility] [address] [address] [address] Catarino Curran WBC 7.9 103/ul Normal 4.0-11.0 [facility] Comment on above: Performed By: #### H H #### [facility] [address] [place] [address] Dr. Catarino Curran IRON AND TIBCon 05-10-2022 % SATURATION 25.8 % Normal [facility] Comment on above: Performed By: #### F ERR, VITAD, FETIBC #### [facility] [address] [address] [address] Catairno Curran Iron [Mass/Vol] 71.0 ug/dL Normal 50.0-170.0 [facility] Comment on above: Performed By: #### F ERR, VITAD, FETIBC #### [facility] [address] [address] [address] Catarino Curran TIBC DIRECT 275.0 ug/dL Normal 250.0-450.0 [facility] Comment on above: Performed By: #### F ERR, VITAD, FETIBC #### [facility] [address] [address] [address] Catarino Curran PROF 14(COMP METB)on 022 Albumin [Mass/Vol] 3.8 g/dL Normal 3.4-5.0 [facility] Comment on above: Performed By: #### F ERR, VITAD, FETIBC #### [facility] [address] [place] [address] Dr. Catarino Curran Albumin/Globulin [Mass ratio] 0.9 {ratio} Normal [facility] Comment on above: Performed By: #### F ERR, VITAD, FETIBC #### [facility] [address] [place] [address] Dr. Catarino Curran ALP [Catalytic activity/Vol] 96 U/L Normal 46-116 [facility] Comment on above: Performed By: #### F ERR, VITAD, FETIBC #### [facility] [address] [place] [address] Dr. Catarino Curran ALT [Catalytic activity/Vol] 14 U/L Normal 14-59 [facility] Comment on above: Performed By: #### F ERR, VITAD, FETIBC #### [facility] [address] [place] [address] Dr. Catarino Curran Anion gap [Moles/Vol] 9.9 mmol/L Normal [facility] Comment on above: Performed By: #### F ERR, VITAD, FETIBC #### [facility] [address] [place] [address] Dr. Catarino Curran AST [Catalytic activity/Vol] 11 U/L Critically low 15-37 [facility] Comment on above: Performed By: #### F ERR, VITAD, FETIBC #### [facility] [address] [place] [address] Dr. Catarino Curran Bilirubin [Mass/Vol] 0.7 mg/dL Normal 0.2-1.0 [facility] Comment on above: Performed By: #### F ERR, VITAD, FETIBC #### [facility] [address] [address] [address] Catarino Curran Calcium [Mass/Vol] 9.2 mg/dL Normal 8.5-10.1 [facility] Comment on above: Performed By: #### F ERR, VITAD, FETIBC #### [facility] [address] [place] [address] Dr. Catarino Curran Chloride [Moles/Vol] 104 mmol/L Normal 98-[address] [facility] Comment on above: Performed By: #### F ERR, VITAD, FETIBC #### [facility] [address] [place] [address] Dr. Catarino Curran CO2 [Moles/Vol] 29.5 mmol/L Normal 21.0-32.0 [facility] Comment on above: Performed By: #### F ERR, VITAD, FETIBC #### [facility] [address] [place] [address] Dr. Catarino Curran Creatinine [Mass/Vol] 1.79 mg/dL Critically high 0.55-1.02 [facility] Comment on above: Performed By: #### F ERR, VITAD, FETIBC #### [facility] [address] [place] [address] Dr. Catarino Curran EGFR-AF SWISS 34 mL/min/1.73m2 Critically low >=60 [facility] Comment on above: Performed By: #### F ERR, VITAD, FETIBC #### [facility] [address] [address] [address] Catarino Curran EGFR-NON AF SWISS 28 mL/min/1.73m2 Critically low >=60 [facility] Comment on above: Performed By: #### F ERR, VITAD, FETIBC #### [facility] [address] [place] [address] Dr. Catarino Curran Globulin (S) [Mass/Vol] 4.1 g/dL Normal [facility] Comment on above: Performed By: #### F ERR, VITAD, FETIBC #### [facility] [address] [place] [address] Dr. Catarino Curran Glucose [Mass/Vol] 98 mg/dL Normal 74-106 [facility] Comment on above: Performed By: #### F ERR, VITAD, FETIBC #### [facility] [address] [address] [address] Catarino Curran Potassium [Moles/Vol] 3.4 mmol/L Critically low 3.5-5.[address] [facility] Comment on above: Performed By: #### F ERR, VITAD, FETIBC #### [facility] [address] [place] [address] Dr. Catarino Curran Protein [Mass/Vol] 7.9 g/dL Normal 6.4-8.2 [facility] Comment on above: Performed By: #### F ERR, VITAD, FETIBC #### [facility] [address] [place] [address] Dr. Catarino Curran Sodium [Moles/Vol] 140 mmol/L Normal 136-145 [facility] Comment on above: Performed By: #### F ERR, VITAD, FETIBC #### [facility] [address] [place] [address] Dr. Catarino Curran Urea nitrogen [Mass/Vol] 20.0 mg/dL Critically high 7.0-18.[address] [facility] Comment on above: Performed By: #### F ERR, VITAD, FETIBC #### [facility] [address] [address] [address] Catarino Curran Urea nitrogen/Creatinin e [Mass ratio] 11.2 mg/mg Normal [facility] Comment on above: Performed By: #### F ERR, VITAD, FETIBC #### [facility] [address] [place] [address] Dr. Catarino Curran UA RANDOM W/MICROSCOPICon BACTERIA NONE SEEN Normal NONE SEEN [facility] Comment on above: Performed By: #### U AMIC #### [facility] [address] [place] [address] Dr. Catarino Curran Bilirubin Ql (U) Negative Normal NEGATIVE [facility] Comment on above: Performed By: #### U AMIC #### [facility] [address] [address] [address] Catarino Curran CAST NONE SEEN Normal NONE SEEN [facility] Comment on above: Performed By: #### U AMIC #### [facility] [address] [address] [address] Catarino Curran Clarity (U) CLEAR Normal CLEAR [facility] Comment on above: Performed By: #### U AMIC #### [facility] [address] [address] [address] Catarino Curran Color (U) LT. YELLOW Normal YELLOW [facility] Comment on above: Performed By: #### U AMIC #### [facility] [address] [place] [address] Dr. Catarino Curran Crystals LM Nom (Urine sed) NONE SEEN Normal NONE SEEN [facility] Comment on above: Performed By: #### U AMIC #### [facility] [address] [place] [address] Dr. Catarino Curran Epithelial cells LM Ql (Urine sed) MODERATE Abnormal NONE SEEN /RARE [facility] Comment on above: Performed By: #### U AMIC #### [facility] [address] [place] [address] Dr. Catarino Curran Glucose Ql (U) Negative Normal NEGATIVE [facility] Comment on above: Performed By: #### U AMIC #### [facility] [address] [place] [address] Dr. Catarino Curran Hemoglobin Ql (U) TRACE-INTACT Abnormal NEGATIVE [facility] Comment on above: Performed By: #### U AMIC #### [facility] [address] [place] [address] Dr. Catarino Curran Ketones Ql (U) Negative Normal NEGATIVE [facility] Comment on above: Performed By: #### U AMIC #### [facility] [address] [place] [address] Dr. Catarino Curran LEUKOCYTES LARGE Abnormal NEGATIVE [facility] Comment on above: Performed By: #### U AMIC #### [facility] [address] [address] [address] Catarino Curran MUCOUS NONE SEEN Normal NONE SEEN [facility] Comment on above: Performed By: #### U AMIC #### [facility] [address] [address] [address] Catarino Curran Nitrite Ql (U) Negative Normal NEGATIVE [facility] Comment on above: Performed By: #### U AMIC #### [facility] [address] [address] [address] Catarino Curran pH (U) 5.5 [pH] Normal 5-9 [facility] Comment on above: Performed By: #### U AMIC #### [facility] [address] [address] [address] Catarino Curran RBC 2-5 Abnormal 0-2 [facility] Comment on above: Performed By: #### U AMIC #### [facility] [address] [place] [address] Dr. Catarino Curran SPEC GRAVITY 1.020 Normal 1.005-<=1.02 5 [facility] Comment on above: Performed By: #### U AMIC #### [facility] [address] [address] [address] Catarino Curran UA PROTEIN 30 mg/dl Abnormal NEGATIVE/ TRACE [facility] Comment on above: Performed By: #### U AMIC #### [facility] [address] [place] [address] Dr. Catarino Curran Urobilinogen Qn (U) 0.2 {Jake'U}/dL Normal 0.2 - 1.0 [facility] Comment on above: Performed By: #### U AMIC #### [facility] [address] [place] [address] Dr. Catarino Curran WBC 10-20 Abnormal NONE SEEN [facility] Comment on above: Performed By: #### U AMIC #### [facility] [address] [place] [address] Dr. Catarino Curran URINE T PROTEIN CREAT RATIOo n 05-10-2022 Protein (U) [Mass/Vol] 69.7 mg/dL Critically high <=12.0 [facility] Comment on above: Performed By: #### F ERR, VITAD, FETIBC #### [facility] [address] [address] [address] Catarino Curran UR PROT CREAT RAT 0.63 Normal [facility] Comment on above: Performed By: #### F ERR, VITAD, FETIBC #### [facility] [address] [place] [address] Dr. Catarino Curran URINE CREAT 110.97 mg/dL Normal 20.00-300.00 [facility] Comment on above: Performed By: #### F ERR, VITAD, FETIBC #### [facility] [address] [place] [address] Dr. Catarino Curran PTH INTACTon 01-19-2022 PTH, Intact 46 pg/mL Normal 15-65 [facility] Comment on above: Performed By: #### H H #### [facility] [address] [place] [address] Dr. Catarino Curran FERRITINon 01-18-2022 Ferritin [Mass/Vol] 177.0 ng/mL Normal 8.0-252.0 [facility] Comment on above: Performed By: #### H H #### [facility] [address] [place] [address] Dr. Catarino Curran HEMOGRAM AND PLATELon 2021 Hematocrit (Bld) [Volume fraction] 37.0 % Normal 36.0-48.0 [facility] Comment on above: Performed By: #### H H #### [facility] [address] [place] [address] Dr. Catarino Curran Hemoglobin (Bld) [Mass/Vol] 11.9 g/dL Critically low 12.0-16.[address] [facility] Comment on above: Performed By: #### H H #### [facility] [address] [place] [address] Dr. Catarino Curran MCH (RBC) [Entitic mass] 32.0 pg Normal 26.7-34.0 [facility] Comment on above: Performed By: #### H H #### [facility] [address] [place] [address] Dr. Catarino Curran MCHC (RBC) [Mass/Vol] 32.2 g/dL Normal 29.9-35.[address] [facility] Comment on above: Performed By: #### H H #### [facility] [address] [place] [address] Dr. Catarino Curran MCV (RBC) [Entitic vol] 99.5 fL Critically high 81.0-99.[address] [facility] Comment on above: Performed By: #### H H #### [facility] [address] [place] [address] Dr. Catarino Curran PLT 366 103/ul Normal 150-450 [facility] Comment on above: Performed By: #### H H #### [facility] [address] [place] [address] Dr. Catarino Curran RBC 3.72 106/ul Critically low 4.20-5.40 [facility] Comment on above: Performed By: #### H H #### [facility] [address] [place] [address] Dr. Catarino Curran WBC 6.0 103/ul Normal 4.0-11.[address] [facility] Comment on above: Performed By: #### H H #### [facility] [address] [place] [address] Dr. Catarino Curran IRON AND TIBCon 01-18-2022 % SATURATION 27.0 % Normal [facility] Comment on above: Performed By: #### H H #### [facility] [address] [place] [address] Dr. Catarino Curran Iron [Mass/Vol] 69.0 ug/dL Normal 50.0-170.0 [facility] Comment on above: Performed By: #### H H #### [facility] [address] [place] [address] Dr. Catarino Curran TIBC DIRECT 256.0 ug/dL Normal 250.0-450.0 [facility] Comment on above: Performed By: #### H H #### [facility] [address] [place] [address] Dr. Catarino Curran LIPID PROFILEon 01-18-2022 CHOL-HDL RATIO NORM SEE BELOW Normal [facility] Comment on above: Result Comment: 3.3 - 4.4 LOW RISK 4.4 - 7.1 AVERAGE RISK 7.1 - 11.0 MODERATE RISK >11.0 HIGH RISK Performed By: #### L IPID #### [facility] [address] [address] [address] Catarino Curran Cholesterol [Mass/Vol] 158 mg/dL Normal <=200 [facility] Comment on above: Performed By: #### L IPID #### [facility] [address] [address] [address] Catarino Curran Cholesterol in HDL [Mass/Vol] 43 mg/dL Normal 40-60 [facility] Comment on above: Performed By: #### L IPID #### [facility] [address] [place] [address] Dr. Catarino Curran Cholesterol in LDL [Mass/Vol] 92.2 mg/dL Normal [facility] Comment on above: Performed By: #### L IPID #### [facility] [address] [address] [address] Catarino Curran Cholesterol.total/ Cholesterol in HDL [Mass ratio] 3.7 {ratio} Normal [facility] Comment on above: Performed By: #### L IPID #### [facility] [address] [address] [address] Catarino Curran HDL NORMAL > or = 60 mg/dl - LO W CARDIOVASCULAR RISK <40 mg/dl - HIGH CARDIOVASCULAR RISK Normal [facility] Comment on above: Performed By: #### L IPID #### [facility] [address] [address] [address] Catarino Curran LDL CALC NORMAL SEE BELOW Normal [facility] Comment on above: Result Comment: <100 mg/dl OPTIMAL 100 - 129 mg/dl NEAR OR ABOVE OPTIMAL 130 - 159 mg/dl BORDERLINE HIGH 160 - 189 mg/dl HIGH >190 mg/dl VERY HIGH Performed By: #### L IPID #### [facility] [address] [address] [address] Catarino Curran Triglyceride [Mass/Vol] 114 mg/dL Normal <=150 [facility] Comment on above: Performed By: #### L IPID #### [facility] [address] [address] [address] Catarino Curran VLDL CALC 22.8 mg/dL Normal [facility] Comment on above: Performed By: #### L IPID #### [facility] [address] [address] [address] Catarino Curran PHOSPHORUSon 01-18-2022 Phosphate [Mass/Vol] 3.5 mg/dL Normal 2.6-4.7 [facility] Comment on above: Performed By: #### U LILI, PHOS, CMP #### [facility] [address] [place] [address] Dr. Catarino Curran PROF 14(COMP METB)on 022 Albumin [Mass/Vol] 3.4 g/dL Normal 3.4-5.0 [facility] Comment on above: Performed By: #### U LILI, PHOS, CMP #### [facility] [address] [place] [address] Dr. Catarino Curran Albumin/Globulin [Mass ratio] 0.9 {ratio} [facility] Comment on above: Performed By: #### U LILI, PHOS, CMP #### [facility] [address] [place] [address] Dr. Catarino Curran ALP [Catalytic activity/Vol] 99 U/L Normal 46-[address] [facility] Comment on above: Performed By: #### U LILI, PHOS, CMP #### [facility] [address] [place] [address] Dr. Catarino Curran ALT [Catalytic activity/Vol] 18 U/L Normal 14-59 [facility] Comment on above: Performed By: #### U LILI, PHOS, CMP #### [facility] [address] [place] [address] Dr. Catarino Curran Anion gap [Moles/Vol] 12.1 mmol/L Normal [facility] Comment on above: Performed By: #### U LILI, PHOS, CMP #### [facility] [address] [address] [address] Catarino Curran AST [Catalytic activity/Vol] 11 U/L Critically low 15-37 [facility] Comment on above: Performed By: #### U LILI, PHOS, CMP #### [facility] [address] [address] [address] Catarino Curran Bilirubin [Mass/Vol] 0.6 mg/dL Normal 0.2-1.0 [facility] Comment on above: Performed By: #### U LILI, PHOS, CMP #### [facility] [address] [address] [address] Catarino Curran Calcium [Mass/Vol] 9.0 mg/dL Normal 8.5-10.1 [facility] Comment on above: Performed By: #### U LILI, PHOS, CMP #### [facility] [address] [address] [address] Catarino Curran Chloride [Moles/Vol] 104 mmol/L Normal 98-107 [facility] Comment on above: Performed By: #### U LILI, PHOS, CMP #### [facility] [address] [address] [address] Catarino Curran CO2 [Moles/Vol] 28.6 mmol/L Normal 21.0-32.0 [facility] Comment on above: Performed By: #### U LILI, PHOS, CMP #### [facility] [address] [address] [address] Catarino Curran Creatinine [Mass/Vol] 1.72 mg/dL Critically high 0.55-1.02 [facility] Comment on above: Performed By: #### U LILI, PHOS, CMP #### [facility] [address] [address] [address] Catarino Curran EGFR-AF SWISS 35 mL/min/1.73m2 Critically low >=60 [facility] Comment on above: Performed By: #### U LILI, PHOS, CMP #### [facility] [address] [address] [address] Catarino Curran EGFR-NON AF SWISS 29 mL/min/1.73m2 Critically low >=[address] [facility] Comment on above: Performed By: #### U LILI, PHOS, CMP #### [facility] [address] [address] [address] Catarino Curran Globulin (S) [Mass/Vol] 4.0 g/dL Normal [facility] Comment on above: Performed By: #### U LILI, PHOS, CMP #### [facility] [address] [address] [address] Catarino Curran Glucose [Mass/Vol] 92 mg/dL Normal 74-106 [facility] Comment on above: Performed By: #### U LILI, PHOS, CMP #### [facility] [address] [address] [address] Catarino Curran Potassium [Moles/Vol] 3.7 mmol/L Normal 3.5-5.[address] [facility] Comment on above: Performed By: #### U ILLI, PHOS, CMP #### [facility] [address] [address] [address] Catarino Curran Protein [Mass/Vol] 7.4 g/dL Normal 6.4-8.2 [facility] Comment on above: Performed By: #### U LILI, PHOS, CMP #### [facility] [address] [address] [address] Catarino Curran Sodium [Moles/Vol] 141 mmol/L Normal 136-145 [facility] Comment on above: Performed By: #### U LILI, PHOS, CMP #### [facility] [address] [place] [address] Dr. Catarino Curran Urea nitrogen [Mass/Vol] 19.0 mg/dL Critically high 7.0-18.0 [facility] Comment on above: Performed By: #### U LILI, PHOS, CMP #### [facility] [address] [place] [address] Dr. Catarino Curran Urea nitrogen/Creatinin e [Mass ratio] 11.0 mg/mg Normal [facility] Comment on above: Performed By: #### U LILI, PHOS, CMP #### [facility] [address] [place] [address] Dr. Catarino Curran UA RANDOM W/MICROSCOPICon BACTERIA SMALL Abnormal NONE SEEN [facility] Comment on above: Performed By: #### H H #### [facility] [address] [place] [address] Dr. Catarino Curran Bilirubin Ql (U) Negative Normal NEGATIVE [facility] Comment on above: Performed By: #### H H #### [facility] [address] [place] [address] Dr. Catarino Curran CAST NONE SEEN Normal NONE SEEN [facility] Comment on above: Performed By: #### H H #### [facility] [address] [place] [address] Dr. Catarino Curran Clarity (U) CLEAR Normal CLEAR [facility] Comment on above: Performed By: #### H H #### [facility] [address] [place] [address] Dr. Catarino Curran Color (U) LT. YELLOW Normal YELLOW [facility] Comment on above: Performed By: #### H H #### [facility] [address] [place] [address] Dr. Catarino Curran Crystals LM Nom (Urine sed) NONE SEEN Normal NONE SEEN [facility] Comment on above: Performed By: #### H H #### [facility] [address] [place] [address] Dr. Catarino Curran Epithelial cells LM Ql (Urine sed) RARE Normal NONE SEEN /RARE [facility] Comment on above: Performed By: #### H H #### [facility] [address] [place] [address] Dr. Catarino Curran Glucose Ql (U) Negative Normal NEGATIVE [facility] Comment on above: Performed By: #### H H #### [facility] [address] [place] [address] Dr. Catarino Curran Hemoglobin Ql (U) TRACE-INTACT Abnormal NEGATIVE [facility] Comment on above: Performed By: #### H H #### [facility] [address] [place] [address] Dr. Catarino Curran Ketones Ql (U) Negative Normal NEGATIVE [facility] Comment on above: Performed By: #### H H #### [facility] [address] [place] [address] Dr. Catarino Curran LEUKOCYTES SMALL Abnormal NEGATIVE [facility] Comment on above: Performed By: #### H H #### [facility] [address] [place] [address] Dr. Catarino Curran MUCOUS TRACE Abnormal NONE SEEN [facility] Comment on above: Performed By: #### H H #### [facility] [address] [place] [address] Dr. Catarino Curran Nitrite Ql (U) Positive Abnormal NEGATIVE [facility] Comment on above: Performed By: #### H H #### [facility] [address] [place] [address] Dr. Catarino Curran pH (U) 6.0 [pH] Normal 5-9 [facility] Comment on above: Performed By: #### H H #### [facility] [address] [place] [address] Dr. Catarino Curran RBC 0-2 Normal 0-2 [facility] Comment on above: Performed By: #### H H #### [facility] [address] [place] [address] Dr. Catarino Curran SPEC GRAVITY 1.015 Normal 1.005-<=1.02 5 [facility] Comment on above: Performed By: #### H H #### [facility] [address] [place] [address] Dr. Catarino Curran UA PROTEIN Negative Normal NEGATIVE/ TRACE [facility] Comment on above: Performed By: #### H H #### [facility] [address] [place] [address] Dr. Catarino Curran Urobilinogen Qn (U) 0.2 {Jake'U}/dL Normal 0.2 - 1.0 [facility] Comment on above: Performed By: #### H H #### [facility] [address] [place] [address] Dr. Catarino Curran WBC 5-10 Abnormal NONE SEEN [facility] Comment on above: Performed By: #### H H #### [facility] [address] [place] [address] Dr. Catarino Curran URIC ACID SERUMon 01-18-2022 Urate [Mass/Vol] 7.2 mg/dL Critically high 2.6-6.0 [facility] Comment on above: Performed By: #### U LILI, PHOS, CMP #### [facility] [address] [place] [address] Dr. Catarino Curran URINE T PROTEIN CREAT RATIOo n 01-18-2022 Protein (U) [Mass/Vol] 26.5 mg/dL Critically high <=12.0 [facility] Comment on above: Performed By: #### F ERR, VITAD, FETIBC #### [facility] [address] [place] [address] Dr. Catarino Curran UR PROT CREAT RAT 0.49 Normal [facility] Comment on above: Performed By: #### F ERR, VITAD, FETIBC #### [facility] [address] [place] [address] Dr. Catarino Curran URINE CREAT 54.03 mg/dL Normal 20.00-300.00 [facility] Comment on above: Performed By: #### F ERR, VITAD, FETIBC #### [facility] [address] [place] [address] Dr. Catarino Curran VITAMIN D 25 OHon 01-18-2022 VIT D 25-OH 25.4 ng/mL Normal [facility] Comment on above: Performed By: #### H H #### [facility] [address] [place] [address] Dr. Catarino Curran VIT D RANGES SEE BELOW Normal [facility] Comment on above: Result Comment: <20 ng/mL Vit D deficient 20 - <30 ng/mL Vit D insufficient 30 - 100 ng/mL Vit D sufficient >100 ng/mL Potential Toxicity Performed By: #### H H #### [facility] [address] [place] [address] Dr. Catarino Curran Coding Summary.on 03-12-2021 Coding Summary. CD:[id number] Gh0bWw +PGhlYWQ+QV8LKHZrD01piKUgj P8VC0bZHQ5IQAAPBGJJNM5OUP4 pdYO3XFdhS2KnsxQq MebauZXxFO41APd5TYX5bArxTZ bbsG0swDTpC4o5NcYeNF89jG25 MUqmKSBvFcW7AtYkhzxsyRSo O2mxNeDxlBSlWgc+PHRhYmxlIH zkHGHuBManRUHaRkHhnZxgUV0w Xg3tFNLgTVWheJyutDWsPdDj o5xtAPXaPWyzBM5vrTtlN0EbnP A9WLLjq5f1By89qAZ+PHRkIHN0 zXqqLJpxh627MqCzi0foUSP6 tGJcNNqeJYH5T22ga7P5SJZqDH VfJFV6qLN6kA6wjLtszaekY3Rt lVCiWhO8SJQ0wUFcpM8ohXad djygdV2tJrl+I37PFZ3GZIDYFT 8GUqm4C9RmFinosIL+NP83PPCu BA85zGXgiIGbt8ajeCv6KuSh SLFyFRJ5zZzaRRisr6MhWAUtZ1 8nlRTyf7J3HOOjrPskwFMtChCf qDD6jM4wCIqoixcaw1jinzub Zarxa3uufg74hA66J65iHXviTW YlNIQ7AMVyDAMnuGfrec2xhO0p Ii8+VKrkm2yem8gssQg1KmGv FPWnleQssAscGMU5a9GuOb22S0 ZjgJvwb9HmKod4yx14tLGjp8R9 wDH1VMkkYJIarG3kYKckTjF8 CMTgChQsiW09uSKhVMvrVc3tvK fsnCxxRH4qFOPbzhzbYNZaoH1i YOCxeKWmgRncYX0uAIAhicwh o840NmHrEUE1NDFlcDToF3IjuR 2sWjEkBLDgEFUwX8RfgGYvMXmf H317RNysRtI1NDRxpnZxS5Ch KFSyfEycNtA1a8A3Bb5Dv6Qsyy hrJSD2VAqdWSZ4QfA1VaRzEpU1 A1LsGuq7XCOwcUocUH5bO4Yp NDKzilfqspnwzAD5RSObHDKxoB 65cIZoLFikIs9et8L4w790RVIo HHZqmK54Lv2cxKtmQKZqaFFX hS0bkyzph4pstxsjIzAwQQKtNE m7VBn5CBMywWnzItFiXTG6PbJ7 SSI3mEOnlC6kdBygkksbfW1h Oyc+U92hbU4kJJN8DFM5srnjDV IbyiDgYH27BZ11I6UeLxelzGNo bGU+YKZzysPdsEriMG1dZlGp p0oxq6BrEZihV6QxIUSgPVdyOb s6HXOnYHJ8eSD9qZ5xDNRxBJrg q5J6hLO3L9ZkhjLiwm4vw2du LGPsKKooN44veMDwa4O5QMRwaI U6BIWbaTcoTuOxrY78Uyh+PGNv gQgfy0PfBdgit9tii4zcoAk5 JwVrOLLndzLjgYncRPN5o0PcHp 11K60hCKryNNGbVUFkIZVwKFUe tAgbmt0wtH8hBg0+PGNvbCB3 tYL6dF2xWROeVyG0LIzcX001Hk WwoPFsNkydo9fiw5pkdSw5LbVq KSPhcsWzoUqtXCE1r5AfIy49 D68cRBwpCODzHEIwZDAgZBAjkV hzcb3zqG1dBo0+QV0zf4pobd76 iQ73dKZ+BLNeILM4nIpmAFvw KZBnlO4aZEusPjO6ZPOvPcWfyW 27dPNeCYpdLz6kcSavvJfcJZ5k NQFdaadik542YjSas3skZQWj mJBgJBtnZBX3U45mq8P9RGEmQB RiLER4fNH8qJ4aePislqetoRKr kOqqdkKdtHmnUMecVJopN631 IHRvcDsnPlBhdGllbnQgTmFtZT b2R4ZsFhg2DSZkeSraDC5nsHMi BFaxRx6efFuvhRwuSW3lCMTz fumdk750OgMlj7daDVZmpKSfBR mbKDQ6N09zn0E6TIFgONXnAXG5 lRT0uL8jiTuxpxvhhBAufUnj jwXizZzaQXytCRrwC251FMMsaU yjMyStwjDaRDDwuWQ0MI53LI55 tCVsl0A2iHS6L4TmQQHdyiyi tmjpfVO7GLMeGDZwbQ23Ca7glE uiIf2uMMBcCEA3ZUYujVEqT0Tz tP0pRsHhXFQlPJUfA6GaxMYu BBasO397LFdxNtF6ELVmoiJyE7 NhSPKngQyrMgM9p0H7Ot5QR7B2 DP68JV33uBIgq8I5aFE0H7Du FOJiubsceyfgkJN5MPJtOEAlbJ 92Ui3jcLheNi4fBHYeEEN4APEm eZGnX5SkrN4lZnOzBTIwYPTc Y4AquKOvKWxsL383HMtrXiR5VS IlkdKcL9BnBSNfkBpsRrN0p8K8 Hp6ZBPl1DF06PO24gVRbg7D1 eBQ4R5VtOCUfuvkyjbogfLC2FO PrATFzwJ48Dr4vbYlxHc8vYQZh REB1KLMpxSHbH1IucS5mUzSb IJKjCJOaZ8PejHYvTKpqV393XL rqBcH4VYLtmsChR6LmODQmuYoq QyJ9n4V8Lw8XABEpNH20DKI1 rLN7AG76FH05N5SyTdhokEBeaG U+PHRhYmxlIHdpZHRoPScxMDAl TqFntWnuCL7mZa1cDIAoIVMe qNyuhFNuTnAog6ckHKQaEEhkNM 0ppRrsF2VhpVG8QSEsb4o9Pw16 I24bL1LiwSI+BWGcoXI6sTM1 mJ2bUnVeVaX0JKpnG777DdYesT DxQxbha8vqc2mogDy4MrY8WLKf agIqsXhzTEU2c0YhYo00N72q IHdpZHRoPSIxNSUiIHZhbGlnbj 8uoS3zLn4+EEEpsLE1qZW5cN8m VkXrAtB8SXopQ047BsFzdWEo Mczdn8oig0qbvIx1JiFkHSIhuq GndIcxIRB1t4RkEd08N4HpvNic q9MaGgf4oh05vECfe8K3jWB0 D5OoUZQbiynpkLJyiUhhEK0iRM JhqhthUPUjwZ8yHDFtB3y4PmKe KtY1EMfvM4NadcS0MICwlMYt HNbbSUG1N31sz5T8HZZvXRKgGB O5rGI8fA7rgRpmvwdgmVSxmGsx tsSmaIqqDIdmXLtdI317NMCo gTibEAVjfH4oTJGptWFdrPlhTQ 4nIQMghvlxQmbICt4VUTEMSCNe JLDZJ1QERWC1W9QqZtp3ZZOl vNxzSJ9owJSdGJnzSw7eqZxxnG rqAV5yNQKgehmvRIEeeS8oABYg hEYnyIjhPT6aSJBypjqnt819 FvIbTEQ6QZNkxTAlV3IbwP0wXc BaLAXdBTXtQ2ElvZIdUQjlM742 GUlcUqE5OJSrctLxW8SrBKIq qGrtBsP1i9C9El3eNS8mCP0hVN KqDA49VI11fIStu5U3dWP2M5Vz FLPypgbiuthziFJ9QOXfHLKa hT60aJEoARjoYb4pj7A9o381MG QbNMOahU56Pb7hySzsKOMkkHLG cJ8ndyxnn2rdqgseXmThDVUw NPj5IJj9ZSInlGhfWtMvOBM9Co O8EDQ6xUJdfB0yqWfdqyplyU3p Oyc+JnMzYOGfluI0Y2ZvSza7 PMYnzTscHT1woNYcBJspEo4cdG nytZalKK1kAIXzmdvxHJDpkC4z LTWjoVAceKreVA6kWAEgwjnx b823FgRcWRK5WGSkkGXjE1UklF 0rPkAzKLBfRBPwQ5MroDHoIAxh R524MRdjRwR6MYAxdtJnK4Uc MLKpkIdmRgG2t4P5Ds6VZD2tcI B8J2PmKgu8BTUpeSnbGC4ltBAf MFnjMe9boFaazRlgCF2cOOIe fgsoUOIvsQ1iLBJbsNEpvKylVH 6lDTYcrtpaf026JuLdCLH2OCRx yLSvI5SsxH7jKrWaWUCoONOi F6JpzQDpFUsyM654UKzgTuP7PR XikkTjT4KtFWPltSgkWlM4o9S8 Mz8MeAEuEHIqSB57FH03AP08 E7QpSitkzAWrzDX+PHRhYmxlIH gcIUIjTVkjMUXiIlCbyYkyVI9z Ny2bBJYiGQVmlRftzFFhGtVk e9idJSTaCTkuNO9qvCxqB0CtiB H3TAKeh0z1Ci17H80oZ7GdbJB+ LRBghPL6nFE9yB2rZvKmLkJ4 JHgaY407IuZwnUPyVmgpv6rlc5 exvFm7HuLmLHRhxpMngNdcUDX5 i7TuGq25C05aFXsnIVQvIIRc CCInXDPdtOerrs4zxJ0fBi8+PG XdlVD6nZL8gF7mLrJlFzQ6BPez T692MmUykAEuKdtaR31mP8Ce dXA+KZQhJhk8FYCbrWwlWM8ufW DnNPvmSl2lNTX4QfNeMtSpBCoz Q4RsDDEvczqcagunnGS6EBXx BGXqpK98Oy7iuTzmCl2xCJAzSG N5HEIvuMQzH6UqtR7tNsXgBJKb FVEoL3ZbhIWbBRlmM026UVpl EeH9TQHbhdWrI3GgEIPreUncUf Y4x8E6Pw6TsOhvzATbBY3tDrRx RZs5W7RoVxi4HOKnlNsoKG4a fRRqAEloGu4xmQtvbLyuDQ2sGG Ycypwhh975GsKee0bmETPnrZQs KZcgNJU2X37um1N7MSUnBBLo CEG3uAW7dB2qzWhehsfbmJUqyL hsvnOwtLsoQNfsIRwkU940VFYu eChbZjEKImx1Y6VtFdw5VCXz yJrqXN9viZXjIUnlSj6jdUfoyC aeYP9oFTBlfwgbv027MsTlq8qj QQMseHEjZPriEYB5P23iy9T6 GFNvNZBjBNZ6pEW3rJ5qvNeigm ogbGVmdDsgdmVydGljYWwtYWxp B354ZMHjtVwiQa2USwp0U8Ai Yoh1FLVigVhpWE7rhQJiNJgfZq 9trBwtzTchAS6iJLWuygwjm401 SeYpv4wzEPZkzDGvLZhiVNQ7 L76tl1I1FYXmRHGxJBL9aBF7xJ 1hbGlnbjogbGVmdDsgdmVydGlj CAdvTHoeR537EIFvtLyhRjJg eWVyOjwvdGQ+PF92hn08H0VpKl elAqb0UIGqYPM9pYB3fR9yRPQu AAyak9A5bLU7U5HwxiSbss6y b2xs (more content not included)... Normal [facility] CT Head or Brain w/o Contras ton 03-04-2021 CT Head or Brain w/o Contrast Exam Date/Time: 03/03/2021 16:07 EDT Reason for Exam: Fourth [trochlear] nerve palsy, right eye Report IMPRESSION: Moderate Microvascular ischemic disease. No interval acute intracranial pathology EXAM: CT Brain CT Head or Brain w/o Contrast CLINICAL HISTORY: Acute headache Fourth [trochlear] nerve palsy, right eye COMPARISON: None available. TECHNIQUE: Axial CT from skull base to vertex without contrast. All CT scans at this facility use dose modulation, iterative reconstruction, and/or weight based dosing when appropriate to reduce radiation dose to as low as reasonably achievable. FINDINGS: Ventricles/sulci: There is diffuse prominence of the CSF spaces of the ventricles and cerebral convexities consistent with significant volume loss. It should be noted that there can be significant overlap in the appearance of age related changes and neurodegenerative disease. Brain parenchyma There is no parenchymal mass or mass effect. No acute blood products or extra-axial fluid. Deep white matter: There are bilateral scattered periventricular, deep white matter and subcortical hypodensities that are probably related to microangiopathy, however there can be significant overlap between normal age-related changes and subcortical arteriosclerotic disease Skull base:The bony calvarium and skull base are normal. Sinuses: The visualized paranasal sinuses and mastoids are clear. The bony calvarium and skull base are normal. FINAL REPORT Dictated: 03/04/2021 3:32 pm Raulito Chavez MD Signed (Electronic Signature): 03/04/2021 3:32 pm Signed by: Raulito Chavez MD Transcribed by: KOBI Technologist: ADRIAN Normal [facility] Consent for Treatmenton 02-13 Consent for Treatment [id number]#1.00CD:127 [facility] Physician Orderon 02-26-2021 Physician Order [id number]#1.00CD:127 [facility] Pre-Certification Formon Pre-Certification Form [id number]#1.00CD:127 [facility] Coding Summary.on 12-11-2020 Coding Summary. CD:[id number] Gh0bWw +PGhlYWQ+EF1EGOAlW31vdSAqg V5CI9zVIM9CAWZNYEKQSE3UEZ2 ggDB3GOswM0NpscKp LkllbWQkMR13CDe7VNT6fUvlAV kxrM5ilZTpC8o0DjOmXF15hX02 QFdyTJRlDfK4GhTjikjzzPNs L2wwWrZzxWWxIjy+PHRhYmxlIH jxYZNuOThoLJPxFtUawBcjFO3e Za8nRRVkVOQdcZhbjYUgRiZm j6ueMXAqGCooOE3lyPppX1AytN S0EPPeu7c9Dm48tNH+PHRkIHN0 oQwnCPvaq324QiSlf3tuTVM5 dSQsDZzzQUO3H43uy3T1KYXgVG ZyKQU7sXP5rY6osWvusffvB4Kz lEOoUpR5PWT1hHNjlO1fkEof yccteZ2lMio+W40INC3MTYFMJJ 5WZht8S1RhOlockXO+TF67KLMf MO87mTVmbZMch4aygDs9DoOe KSZbUDX8oAosROqvp3JwTHVgZ4 3wxRDdu9O9QCCkkDvmeMQqGhJi lIX8zE7cTGsnnumur7dkzsny Drbkr6yymr43qP12H39lUSkaJR CyWCU7QFPwTNPxxPetke7usC9g Ii8+WRcct5lxd8afuPt6KfIq EHJyfpDegDacGWQ1z9CgQg31X6 FsqStrb2TgJxt3zc63bRJkd1R6 dVG3DXvbKUBepN6zWXdqWyE9 CQLyLxLfiI07xNPyZWhzKr7kbJ yuqCxtSL0cGMRfcvksXPIsiV6d AFPpdDWxlKlqMD9eLPDpayzt f553SfLqFNO4XZNbqDIuR0KleG 4jPhFlNSUbZBJdL6OseUFuMUcl T019CSldZwE2NVVpaeOyY9Ii DPXffYfyThO4z2G1Yx2Lm5Pgva etXYT7GRheUFU4BsC8OiDfQfI6 E3XuKtc3CBLkvBfrUB0dZ6Ug SSTlvflkqcuuuPI4EZXoITOcmY 19oETsEMbqYo2mq8P9x023STNv LTEveI15Re5ldQwsITCmkTBM nT0pcmgqu5nlyceiWxNcKPUyEW v2JHf6POXqtZnmIxDkTCC6JqB3 XZC8rETwnF0hmGvgoccjnX8z Oyc+U72mfG2yTEI0GMN5cqssSV YugySfUC32MM28A5XvKflhqVTw bGU+OBOrylVvsEptZB4rZkZq v8yjs0FyEXxgR9DmYVMgIDlxWk v9VOIbWPN8eSZ6eQ8oXIDjUUsf w5Z8eNY1S5EzslSxeq6al3ys ITMlPWjaQ68rnMAus8Q0YMItyU H3RFIbmGfzNoFaxE72Wxa+PGNv bKegr8VrBujzc5pxg3nimJo3 PhYaCMRprmAvrBwlNBT7q1VqWn 35Q57cBDhxAFJoFKUwQMQoGVXb mQsvqg5liW2zRv4+PGNvbCB3 jEF2bP1xBFMxXdS5RAybL582Gd BsrSHgYrxud8lla1xjbUk4FsTh RYKzdoAfxDxhOPQ7m2JmUo01 R07nBAdpVMPmRMOxIIZtEIUoqN pcey7ciD0sKw4+ZA7eg0zjeu19 oV15rPJ+NLKcZYT5dTjlNZlc DDIzyD1mSMvrUzV5LONwKoAugW 59xUDdLOajOu8bnSpqvCpsOC9h UWLpxqbau707HkMfq0ufDSWq uKUuQUrmFMW0O15id5K0LCJdMZ NmDIR5zQE1mU2nvNwsodjgiIIk eRjisnLmjYwbBMfaXOsnV022 IHRvcDsnPlBhdGllbnQgTmFtZT e4U0FuWtf8FIBxaBmjWM7zlFMn AQxvXb8nwXizgRsmIV8jKURa lwzes795WtTpw1ndYFPabOHsJW wzVHQ8A43mo1Y4KXFsTIQmEKB8 gBC0jX7zlEmhkvurrULtxQlm cfNapSgjYLfkBXysO454PZAknE smOwYvpeTeVDLzsBG8NJ97WI64 aVBpi5I6mJJ3Q1MeRPIyhwgv qpyyzTA0YZDeMVLkxJ46Ax6lqE cuDe9hBVThJDX0AADjxQXhN0Lk zO3yJzHiFYRnBLFtF9KwpAKi CFmkN801HLuhHsF9DXJwlkRbB7 XgRAYgqXssCmJ7l6H4Yw8FM2S6 HG02WQ13rKTvj6R3dMF2L4Md IQQrwfwhwceftSP3HEFmNCHcxP 85Tf0haCurAy8vPJUqKSK9PIQv aAGzP2QelQ9pCwGwOKOlTHPh V8GbdKQaKYxlD703EHgfScK5NM GmvdVkR0TbFCPkhKgwLuT5t5S2 Hw2QFJc9DR50JZ86fJHgb3X6 kZO4S8LeFSNvlulywzcqdEI4TC OgPMUupM11Ze5uhIeaVd8yAOFe QWL5YDGqoMOvV4RrtP7bXsAl ZFJoWZErT0HrlJTeZAozI758SO wgAeV1TUTamrGdN9UsHPNrnFpq KjP1x6E5Xy8TYNVqVV25CME4 yRM4JA28CP02A8DsSkjahILszP U+PHRhYmxlIHdpZHRoPScxMDAl DgVjeVrcAL1pGa3nKYXoFNRm kUszfAAuZzYrn6ztVILkEYvvLZ 7yvDdyQ8YivVZ3YGQfr3n0Sb70 U76sN3CcrXA+WFLgdHG6gJL3 pC2tJnZsVaL7UFehD321MsPkkX XzBimpe5lkm7suyRv1UoR5QXSh tmBlrKrcFTP8y6XkUa75A70p IHdpZHRoPSIxNSUiIHZhbGlnbj 3iqZ6lAt2+BGVbdLA5aIM0dR2b RrInJdP9UFkrV107XzSjjXUf Wiwid4kzh5qywUr9YjRyGPKfpc NtjGreTOR8i5EvXs35Q3PeyGkc h4SyCdk9am58cEYlp0Y2fQH5 D5YiDFNqseycvLOtpCmoEG0lRQ GltqytKWLicN0zQZCxK7j8GoZi GuK3YNyfR6SglsD8OMFiuHJb MOjwULU3O38ob1U4AGYyMMXjGT K0aXE5jV7gfGcoqukhrEOnkNqu dpBauRbyQAvuBTejS275RBNy pGcuPCAnjB6rETOfdRFlaZejAQ 0qCWAlxpciPxuZVn3LLBMIYNXd VHYBH5PYZNV3X8HzFvb5YQIn cStmVJ4rnYSwUBwuKf9rwXrfsS hyOD4qKPBpylwyUAFtnW0pIWPb dQBcvTksLP8fFJJnbvgnh350 OsHiPLM6WTVkiOHvD4KjrW9qWb OkKPXsJKDmY9JotHGfVAbbP910 VQwtTaO8VMLjqgJeZ3WuZWDq uPcoZgM5x2E7Fd7iZP0cKU3mAI YsYZ10ZJ69dQRxb4T9oVB6W7Ah ATLkftnfogeuqJE9YUIwUTRm xK86xGFdAVfiPx7om5R8o767QF MqRAGrwN24Fe2wiMokUZCptWLG jD2whjtgy9sxfjxcLgKnQPDz TCe1YMi0ZLBtwNthQdIhQAK1Dp C0DVV6xKYqbY7uiHahpogcjL1b Oyc+KpHfXIWlvkC9X2EwKsn9 RHKeeMtsDB7tmBJmJZheTn6wuQ skaFutBW2kHPFnmyugISOdwZ2a XQUlyGQdpRjqNP4aBTXnxjbl z291VpDbCIS0YRBebZUxF1UtaY 7zFlMzHUAdKNEjU8TsyFUbXMai X600SMheRfR0DZWtqkEzG4Xn SIOufPnzXiM0k8D2Lt4MFM2hbC H7T0UhJio1ZJGtjUdvQG4znNUz CXyyDq4gkEowbBqgXE2nYBRs tvbbGYMhbK1kNCOaqFHyzHucHE 8zMUJojapcf899OiIzKNP4MYTf fWJnS3PraC9aHaUjMQEeIYFm Q4ZpjJSzRAlnR615KOiuArV5BP WmlbZgD7RiIMZpmMpfBpP4z2Z6 Wa5ZrWIwVLYbIB42LF62LD38 K8HoDagkyAQneKK+PHRhYmxlIH rsKPEdIBwsVCHzUuDymBueEQ7j Nq6nCQYsOSDvaMvvsKLuIuFs r6dhMCVeDYjaLY6lsNqaN0SvoG V8SWFcg3z9Sf07S12qY9SekVA+ SFMjiBM0pCQ0cS6pBdBlPaR9 KXxyZ632BiWlvZGjQunsw7ujy2 xuxAn4PoKxSROdciCaaNbyYMS4 r7HtEx47F01pQIqlLOBeDWGy CSVeJTFisAwzds3nwT1tHk1+PG IxxSW4lCR4aA3lFkWsPjP0XSqr E747NnZjzHRvXnxdM12vU6Or dXA+IIVxUnf4IAMwgQkpYX0qhE BhVIfzQi3jOLB6IqGtMrCyUXsn A4XgEFMybpwgdjhzdCJ4YFSv BCIubO51Eu4neZxxKz4bIIFwDM P3HNVskETtI9CqcX1dGlCbHRTn DCPpF3WtbMVcRRloM824UGhg FqS9BLEsxkGvF0AmQPUxqFabIu G4p8Z2Pc2JmEiwiVZhAB6tZlIn IEe8Z1PaUkg6SYCleSisJL2t tSKyVUldHo8dkCvkmGwxMK4kNF Wpmgfsb242SpYrh1vkCGExaVNd EXtrSJD1T51jx1A9QLTiLWIu TKA2oJF5dX6vtAyrwpdwpJOutX vphcNsfDspVFizJVnxA808LQFa kPevFdHXJtj9B7QcRkc4SOWa qLemQE0fzYGgRZzgLm0hzCyphB sbIC1hQWRxqsdqn661FgDos5zo DNMqhEJjRSxkFBX9W84dd8Y0 WDAaWQDfZBX9hZV9nM3fpNmugd ogbGVmdDsgdmVydGljYWwtYWxp S103LJHjuMfbYw2SEhv1G4Fj Hkc8GKIqnYwkBR1lyBYuHRznDx 4ilRbbiSztCW0iFNVqjjgso235 OkPkq0btPRKnzTFjCDzmHUO4 W39do7H3FCIpWLQiVMO6rWA7gP 1hbGlnbjogbGVmdDsgdmVydGlj CEokNIilF834GSUyxQopCpMv eWVyOjwvdGQ+EA72kb85H2TrJv evDug1IBPzZGI8oOG1rO5xVMLc RNlip1W1sTM5J8GvheMncl2l b2xs (more content not included)... Normal [facility] CRPon 12-03-2020 CRP [Mass/Vol] 4.7 mg/dL High <=1.9 [facility] Comment on above: Performed By: #### 2 [id number] ####[facility] [id number] [place] [address] Consent for Treatmenton 11-14 Consent for Treatment [id number]#1.00CD:127 [facility] Physician Orderon 12-03-2020 Physician Order [id number]#1.00CD:127 [facility] IntraOperative Documentson 0 11-10-2020 IntraOperative Documents [id number]#1.00CD:127 [facility] Coding Summary.on 11-07-2020 Coding Summary. 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 However, the narrative phrase printed from the coding software may appear abbreviated, or result in slightly different terminology. Coded By: Kaleigh Russ CphT Date Saved: 11/07/2020 11:36 am Normal [facility] Coding Summary.on 11-06-2020 Coding Summary. CODING DATE: 021 FINAL [facility] STATUS: Home (Routine DC) PAYOR: Medicare APC DESCRIPTION 5072 Level 2 Excision/ Biopsy/ Incision and Drainage ADMIT DX: REASON FOR VISIT DX: M31.6 Other giant cell arteritis FINAL DX: PRINCIPAL: M31.6 Other giant cell arteritis SECONDARY: I10 Essential (primary) hypertension M06.9 Rheumatoid arthritis, unspecified M32.9 Systemic lupus erythematosus, unspecified Z85.3 Personal history of malignant neoplasm of breast PYMT PROC APC STAT DESCRIPTION DOCTOR NAME DATE 73329 5072 J1 Ligation or biopsy, Bianca Peoples MD 11/03/2020 temporal artery RT Right side (used to identify procedures performed on the right side of the body) NOTE: The code number assigned matches the documented diagnosis and / or procedure in the patient's chart. However, the narrative phrase printed from the coding software may appear abbreviated, or result in slightly different terminology. Coded By: Melina Cali Date Saved: 11/06/2020 03:19 pm [facility] Main OR Intraoperative Recor don 11-06-2020 Main OR Intraoperative Record IntraOp Document Type FT Summary Primary Physician: Bianca Peoples MD Finalized Date/Time: 11/06/20 10:16:21 Pt. Name: BHUMIKA WHEATLEY/Sex: 1950 Female Med Rec #: [id number] Physician: Bianca Peoples MD Financial #: [id number] Pt. Type: A Room/Bed: Admit/Disch: 11/03/20 08:17:30 - 11/03/20 13:00:00 Institution: Case Times FT Entry 1 Patient Times In Room 11/03/20 11:27:00 Out Room 11/03/20 12:22:00 Procedure Times Start 11/03/20 11:44:00 Stop 11/03/20 12:21:00 Anesthesia Times Last Modified By: Eryn Hernandez RN 11/03/20 12:22:11 General Comments: 11/06/2020 Chart opened to review and send charges. Taras MACKEY. Case Attendance FT Entry 1 Entry 2 Entry 3 Case Attendee Richelle BARROS, Bianca Hernandez RN, Eryn Malave CST, Smita Curtis Role Performed Surgeon - Primary Office Worker - Primary Scrub - Primary Time In 11/03/20 11:27:00 11/03/20 11:27:00 11/03/20 11:27:00 Time Out 11/03/20 12:22:00 11/03/20 12:22:00 11/03/20 12:22:00 Procedure TEMPORAL ARTERY BIOPSY TEMPORAL ARTERY BIOPSY TEMPORAL ARTERY BIOPSY SURGERY(Right) SURGERY(Right) SURGERY(Right) Comments Last Modified By: Eryn Hernandez RN, RN, Eryn Hyde RN 11/03/20 12:24:51 11/03/20 12:24:51 11/03/20 12:24:51 Perioperative Protocols FT Pre-Care Text: Implements protective measures prior to operative or invasive procedure, confirms identity before the operative or invasive procedure, verifies operative procedure, surgical site, and laterality Entry 1 Procedure(s) TEMPORAL ARTERY BIOPSY Patient Identity Birthday, ID Band SURGERY(Right) Verified (select at Check, Patient least 2): Participation Consents / H and P HandP, Surgery/Procedure Operative Site Present Verified Consent Marking Verified Surgical Site Yes Laterality Verified Yes Verified Procedure Verified Yes Correct Patient Yes Position Verified Availability Equipment, Medication Prep Dry n/a Verified (If Applicable) PreOp Antibiotic No Time Out Bianca Peoples MD, Given Participants David RENO, Ananda Alva CST, Smita Curtis Time Out Complete 11/03/20 11:40:00 Outcomes Met? Yes Last Modified By: Eryn Hernandez RN 11/03/20 11:50:04 Post-Care Text: The patient is free from signs and symptoms of injury caused by extraneous objects Allergy Information FT Pre-Care Text: Verifies allergies Entry 1 Allergies Reviewed? Yes Allergies Reviewed Self/Patient With Outcomes Met? Yes Last Modified By: Eryn Hernandez RN 11/03/20 11:50:08 Post-Care Text: The patient received appropriate medication(s) safely administered during the perioperative period Surgical Procedures FT Entry 1 Procedure Description Procedure TEMPORAL ARTERY BIOPSY Modifiers Right SURGERY Surgeon Description RIGHT TEMPORAL ARTERY BIOPSY UNDER LOCAL Primary Procedure Yes Primary Surgeon Bianca Peoples MD Start 11/03/20 11:44:00 Stop 11/03/20 12:21:00 Anesthesia Type Local Surgical Service Ophthalmology Wound Class 1 - Clean Last Modified By: Eryn Hernandez RN 11/03/20 12:32:09 General Case Data FT Pre-Care Text: Classifies surgical wound, implements aseptic technique, initiates traffic control Entry 1 Case Information OR OR 3 FT Case Level Level 2 Wound Class 1 - Clean Specialty Ophthalmology Preop Diagnosis GIANT CELL ARTERITIS Postop Same As Preop Yes M31.6 Postop Diagnosis GIANT CELL ARTERITIS Outcomes Met? Yes M31.6 Last Modified By: Eryn Hernandez RN 11/03/20 11:50:27 Post-Care Text: The patient is free from signs and symptoms of infection Skin Assessment (Pre Procedure) FT Pre-Care Text: Implements protective measures to prevent skin/ tissue injury due to thermal or mechanical sources Evaluates for signs and symptoms of physical injury to skin and tissue Entry 1 Skin Integrity Unable to Visualize Skin Abnormality No Outcomes Met? Yes Last Modified By: Eryn Hernandez RN 11/03/20 11:58:51 Post-Care Text: The patient is free from signs and symptoms of injury caused by extraneous objects General Comments: PATIENT FULLY DRESSED, VISIBLE SKIN INTACT. ROWDY RUBIN Patient Positioning FT Pre-Care Text: Identifies physical alterations that require additional precautions for procedure-specific positioning, verifies presence of prosthetics or corrective devices, positions the patient, evaluates the patient for signs and symptoms of injury as a result of positioning Entry 1 Procedure TEMPORAL ARTERY BIOPSY Body Position Supine SURGERY(Right) Feet Uncrossed? Yes Left Arm Position Resting at Side Right Arm Position Resting at Side Left Leg Position Extended Right Leg Position Extended Positioning Device Other/See Comments, Pillow Large Under Knees Press Points Checked Yes By Eryn Hernandez RN, Bianca Peoples MD Outcomes Met? Yes Last Modified By: Eryn Hernandez RN 11/03/20 11:52:43 Post-Care Text: The patient is free from signs (more content not included)... Normal [facility] Discharge Instructionson Discharge Instructions [id number]#1.00CD:127 Normal [facility] IntraOperative Documentson 0 11-04-2020 IntraOperative Documents [id number]#1.00CD:127 Normal [facility] Operative Reporton Operative Report Date of Surgery: 11/03/2020 SURGEON: Bianca Peoples MD PREOPERATIVE DIAGNOSIS: Giant cell arteritis POSTOPERATIVE DIAGNOSIS: Giant cell arteritis OPERATION: Temporal artery biopsy, right side ANESTHESIA: Local BLOOD LOSS: Minimal SPECIMEN: Right temporal artery COMPLICATIONS: None CLINICAL NOTE: Ms. Wheatley is a pleasant 70-year-old female with a history of hypertension, lupus, rheumatoid arthritis, and breast cancer who noted new onset headache and double vision intermittently for the past week. She was examined and blood work showed an elevated ESR and CRP concerning for giant cell arteritis. After the risks, benefits and alternatives of the planned procedure were explained, the patient's informed consent was obtained. The patient was identified in the Preoperative Area by Dr. Peoples and the patient's right side was marked at the appropriate operative site. PROCEDURE: The patient was taken to the Operating Room where she was placed in a supine position and her head was turned towards the left. A 3 x 2 inch area of hair was shaved allowing for digital palpation of the temporal artery. This was verified with Doppler ultrasound. This area was marked with a marking pen. The patient then received 2% lidocaine with 1:100,000 epinephrine injected subcutaneously adjacent to these markings. The patient was then prepped and draped in the standard sterile fashion for oculoplastic surgery. Extending temporally, a #15 Bard-Alfredo blade was used to incise just medial to the markings. Blunt dissection to the superficial temporalis fascia was achieved using curved hemostats. The temporal artery was visualized directly and this was isolated using blunt dissection with the curved hemostats. Two 4-0 silk ties were placed along the distal end as well as the proximal end. The specimen was then excised from the host bed and the remaining ends of the arteries were cauterized using bipolar cautery. The specimen was sent fixed in formalin to Pathology labeled right temporal artery. Meticulous attention to hemostasis was achieved with bipolar cautery and the overlying incision was closed in layers using multiple 5-0 Vicryl sutures placed in a horizontal mattress fashion. The overlying incision was then closed using a 5-0 Prolene suture placed in a running fashion. At the conclusion of the case, Bacitracin ointment was placed over the incision. The patient was taken to the Recovery Room in good condition having tolerated the procedure well. There were no complications. Bianca Peoples MD gls Dictated: 11/03/2020 #[id number] Typed: 11/04/2020 #[id number] cc: Bianca Peoples MD [facility] Comment on above: Result Comment: Elec tronically Signed By: Bianca Peoples MD\.br\Date and Time Signed: 11/04/20 20:56 EDT Preoperative Documentson Preoperative Documents [id number]:127 [facility] Consent for Treatmenton 10-14 Consent for Treatment [id number]:127 [facility] Inpatient Patient Summaryon 11-03-2020 Inpatient Patient Summary [place] [id number] [facility] Clinical Discharge Instructions PERSON INFORMATION Name: BHUMIKA WHEATLEY PHYSICIANS Admitting Physician: Bianca Peoples MD Attending Physician: Bianca Peoples MD PCP: KAMERON BARROS, ESPINOZA Espinal Discharge Diagnosis: Giant cell arteritis Comment: PATIENT EDUCATION INFORMATION Instructions: Medication Leaflets: Follow up: With: Address: When: Bianca Peoples [address] [place] [address], [place] [address] [phone] Business (1) Within 1 week MEDICATION LIST Medications to Continue Taking That Have Changed Other Medications START: acetaminophen (Tylenol) 500 Milligram By Mouth every 6 hours as needed as needed for pain. Medications to Continue with No Changes Other Medications furosemide (Lasix 20 mg Tab) 1 Tablets By Mouth every day. levothyroxine (levothyroxine 88 mcg (0.088 mg) oral capsule) 1 Capsules By Mouth every day. multivitamin (Multi Vitamins oral tablet) 1 Tablets By Mouth every day. Non-Formulary Medication (BP med name unknown) 0.5 tab By Mouth every day., hypertension predniSONE (predniSONE 20 mg Tab) 3 Tablets By Mouth every day., double visione, pain Comment: Normal [facility] Main OR PACU II Recordon Main OR PACU II Record PACU Phase II Document Type FT Summary Primary Physician: Bianca Peoples MD Finalized Date/Time: 11/03/20 13:05:07 Pt. Name: BHUMIKA WHEATLEY Ever Tavares./Sex: 1950 Female Med Rec #: [id number] Physician: Bianca Peoples MD Financial #: [id number] Pt. Type: A Room/Bed: [facility]/ Admit/Disch: 11/03/20 08:17:30 - Institution: Case Times PACU II FT Pre-Care Text: Identifies barriers to communication and implements measures to provide psychological support and determines knowledge level Develops individualized plan of care, and ensures continuity of care Maintains patient's dignity and privacy, and maintains patient confidentiality Identifies and reports philosophical, cultural, and spiritual beliefs and values Identifies individual values and wishes concerning care administers prescribed antibiotic therapy and immunizing agents as ordered, Evaluates postoperative tissue perfusion Implements thermoregulation measures, and monitors body temperature Evaluates postoperative respiratory status Evaluates postoperative cardiac status Evaluates postoperative neurological status Assesses pain control, collaborated in initiating patient-controlled analgesia and implements alternative methods of pain control Verifies allergies, administers prescribed medications and solutions, evaluates response to medications Entry 1 In PACU II 11/03/20 12:25:00 Discharge from PACU 11/03/20 13:00:00 II Outcomes Met? Yes Last Modified By: Kelly Parish RN 11/03/20 13:05:06 Post-Care Text: The patient demonstrates knowledge of the expected response to the operative or invasive procedure The patient's care is consistent with the individualized perioperative plan of care The patient's right to privacy is maintained The patient's value system, lifestyle, ethnicity, and culture are considered, respected, and incorporated into the perioperative plan of care The patient participates in decisions affecting his or her perioperative plan of care. The patient is free from signs and symptoms of infection The patient has wound/tissue perfusion consistent with or improved from baseline levels established preoperatively The patient is at or returning to normothermia at the conclusion of the immediate postoperative period The patient's respiratory function is consistent with or improved from baseline levels established preoperatively The patient's cardiovascular status is consistent with or improved from baseline levels established preoperatively The patient's neurological status is consistent with or improved from baseline levels established preoperatively The patient demonstrates and/or reports adequate pain control throughout the perioperative period The patient received appropriate medication(s), safely administered during the perioperative period Finalized By: Kelly Parish RN Document Signatures Signed By: Kelly Parish RN 11/03/20 13:05 Normal [facility] Main OR Preoperative Recordo n 11-03-2020 Main OR Preoperative Record Holding Area Document Type FT Summary Primary Physician: Bianca Peoples MD Finalized Date/Time: 11/03/20 09:17:24 Pt. Name: ELADIAJAXONBHUMIKA/Sex: 1950 Female Med Rec #: [id number] Physician: Bianca Peoples MD Financial #: [id number] Pt. Type: A Room/Bed: [place] [address] Admit/Disch: 11/03/20 08:17:30 - Institution: Case Times Holding FT Pre-Care Text: Verifies consent for planned procedure, identifies individual values and wishes concerning care, includes family members in perioperative teaching Secures patient's records' belongings, and valuables, maintains patient's dignity and privacy, and maintains patient confidentiality Entry 1 In Holding 11/03/20 08:30:00 Outcomes Met? Yes Last Modified By: Ileana Denis LPN 11/03/20 09:04:04 Post-Care Text: The patient participates in decisions affecting his or her perioperative plan of care The patient's right to privacy is maintained Surgery Checklist FT Entry 1 Patient Birthday, ID Band Procedure Surgical Consent, With Identification: Check, Patient Verification: Patient Participation NPO after Midnight: No Date/Time: 11/03/20 07:00:00 Personal Items: Dentures, Glasses Personal Items upper and lower full Comment: plates in, glasses on, will give to her Complaints of Pain: No Operative Site No Marking: Does Patient Smoke No Patient states Yes Comment - Adult Denny postop adult Supervision supervision available Case Cancelled in No Holding Area see comments below for reason Last Modified By: Ileana Denis LPN 11/03/20 09:09:21 Finalized By: Ileana Denis LPN Document Signatures Signed By: Ileana Denis LPN 11/03/20 09:17 Normal [facility] Outpatient Surgery Discharge Instructionon 11-03-2020 Outpatient Surgery Discharge Instruction [place] [address] Patient Discharge Instructions PERSON INFORMATION Name: BHUMIKA WHEATLEY Date of : 1950 Current Date: 11/03/2020 12:56:20 PHYSICIANS Admitting Physician: Bianca Peoples MD Discharge Diagnosis: Giant cell arteritis BHUMIKA WHEATLEY has been given the following list of follow-up instructions, prescriptions, and patient education materials: PATIENT FOLLOW-UP INFORMATION Diet: Regular Call Your Doctor For: Severe pain at the operative site Additional Instructions: tylenol as needed for pain, neosporin to temples IF UNABLE TO CONTACT YOUR PHYSICIAN AND YOU FEEL IT IS AN EMERGENCY, GO TO THE NEAREST EMERGENCY ROOM OR CALL 911 ICORRY SUSAN C, have received the attached patient education materials/instructions and have verbalized understanding: May we do a follow up call? Yes No I was present when discharge instructions were given ____ Patient Signature _ Date Clinican/Nurse Signature Date Follow up: With: Address: When: Bianca Peoples [address], [place] [address] [phone] Business (1) Within 1 week Pharmacy Information: [facility] [place] You may receive a survey from [facility] asking you to rate your care experience. Your feedback is important and will help us understand what we do well and how we can improve the quality of care we provide to you, your loved ones and our community. It?s an honor to serve you. Thank you for choosing [facility] HERE ARE THE MEDICATION CHANGES THAT OCCURRED DURING YOUR HOSPITAL STAY Medications to Continue Taking That Have Changed Other Medications START: acetaminophen (Tylenol) 500 Milligram By Mouth every 6 hours as needed as needed for pain. Medications to Continue with No Changes Other Medications furosemide (Lasix 20 mg Tab) 1 Tablets By Mouth every day. levothyroxine (levothyroxine 88 mcg (0.088 mg) oral capsule) 1 Capsules By Mouth every day. multivitamin (Multi Vitamins oral tablet) 1 Tablets By Mouth every day. Non-Formulary Medication (BP med name unknown) 0.5 tab By Mouth every day., hypertension predniSONE (predniSONE 20 mg Tab) 3 Tablets By Mouth every day., double visione, pain PATIENT EDUCATION INFORMATION Instructions: Normal [facility] Patient Education - Texton 0 11-03-2020 Patient Education - Text [facility] Progress Note-Physicianon Progress Note-Physician Patient: BHUMIKA WHEATLEY Age: 70 years Sex: Female : 1950 Associated Diagnoses: None Author: Bianca Peoples MD Postoperative Information Preoperative Diagnosis: Giant Cell Arteritis. Postoperative Diagnosis: Same as above. Performed by: Bianca Peoples MD, Temporal artery biopsy, right side. Findings: See operative report. Specimens Removed: Temporal Artery, right side. Estimated Blood Loss: Minimal. Complications: None. Anesthesia type: Local with 2% lidocaine with 1:100,000 epinephrine, MAC sedation. Normal [facility] Comment on above: Result Comment: Elec tronically Signed By: Bianca Peoples MD\.br\Date and Time Signed: 11/03/20 12:24 EDT Consent for Procedure/Surger yon 10-31-2020 Consent for Procedure/Surgery [id number]:127 Normal [facility] Auto Diffon 10-29-2020 Basophils/100 WBC (Bld) 0.3 % Normal 0.0-2.0 [facility] Comment on above: Order Comment: Order Added by Discern Expert. Performed By: #### 1 [id number], 2263125, 7380267, [id number] ####[facility] [address] [place] [address] Basophils/Leukocyt es Auto (Bld) [Pure # fraction] 0.0 E9/L Normal 0.0-0.2 [facility] Comment on above: Order Comment: Order Added by Discern Expert. Performed By: #### 1 [id number], 0506058, 7624603, [id number] ####[facility] [address] [place] [address] Eosinophils/100 WBC (Bld) 1.2 % Normal 0.0-8.0 [facility] Comment on above: Order Comment: Order Added by Discern Expert. Performed By: #### 1 9896133, 4663642, 5864484, 22505908 ####[facility] [address] [place] [address] Eosinophils/Leukoc ytes Auto (Bld) [Pure # fraction] 0.1 E9/L Normal 0.0-0.5 [facility] Comment on above: Order Comment: Order Added by Discern Expert. Performed By: #### 1 0436490, 1621845, 6001553, [id number] ####[facility] [address] [place] [address] Lymphocytes/100 WBC (Bld) 9.2 % Low 14.0-50.0 [facility] Comment on above: Order Comment: Order Added by Discern Expert. Performed By: #### 1 0870476, 6210285, 9586761, 32687920 ####[place] [address] [place] [address] Lymphocytes/Leukoc ytes Auto (Bld) [Pure # fraction] 0.7 E9/L Low 1.0-4.0 [facility] Comment on above: Order Comment: Order Added by Discern Expert. Performed By: #### 1 4302269, 6104254, 1689900, 18303756 ####[place] [address] [place] [address] Monocytes/100 WBC (Bld) 16.3 % High 4.0-14.0 [facility] Comment on above: Order Comment: Order Added by Discern Expert. Performed By: #### 1 5558918, 8740646, 6025201, 23718473 ####[place] [address] [place] [address] Monocytes/Leukocyt es Auto (Bld) [Pure # fraction] 1.3 E9/L High 0.2-1.0 [facility] Comment on above: Order Comment: Order Added by Discern Expert. Performed By: #### 1 3218392, 2672948, 5568074, 43803504 ####[place] [address] [place] [address] Neutrophils/100 WBC (Bld) 73.0 % Normal 36.0-75.0 [facility] Comment on above: Order Comment: Order Added by Discern Expert. Performed By: #### 1 4691321, 2047438, 4816179, 39602302 ####[place] [address] [place] [address] Neutrophils/Leukoc ytes Auto (Bld) [Pure # fraction] 5.8 E9/L Normal 2.0-7.5 [facility] Comment on above: Order Comment: Order Added by Discern Expert. Performed By: #### 1 8477031, 0205574, 6544882, 79337550 ####[address] [address] CBC w/ Auto Diffon Erythrocyte distribution width (RBC) [Ratio] 14.3 % High 10.9-14.2 [facility] Comment on above: Performed By: #### 1 7271233, 3915303, 5523733, 25531660 ####[address] [address] Hematocrit (Bld) [Volume fraction] 35.3 % Normal 34.0-46.0 [facility] Comment on above: Performed By: #### 1 5764895, 4135604, 8061699, 77789662 ####[address] [address] Hemoglobin (Bld) [Mass/Vol] 11.7 g/dL Low 12.0-16.0 [facility] Comment on above: Performed By: #### 1 6804761, 4319089, 4869897, 86417634 ####[address] [address] MCH (RBC) [Entitic mass] 29.6 pg Normal 27.0-34.0 [facility] Comment on above: Performed By: #### 1 5495184, 6748100, 7666854, 27602425 ####[address] [address] MCHC (RBC) [Mass/Vol] 33.2 g/dL Normal 31.4-36.0 [facility] Comment on above: Performed By: #### 1 8155233, 3234871, 4188260, 92327829 ####[place] [address] [address] MCV (RBC) [Entitic vol] 89.2 fL Normal 80.0-100.0 [facility] Comment on above: Performed By: #### 1 0070307, 6424246, 7785987, 02073000 ####[address] [address] Platelet mean volume (Bld) [Entitic vol] 7.7 fL Normal 6.4-10.8 [facility] Comment on above: Performed By: #### 1 6764984, 7107139, 3895175, 42860231 ####[address] [address] Platelets (Bld) [#/Vol] 321.0 E9/L Normal 150.0-500.0 [facility] Comment on above: Performed By: #### 1 7693392, 2834012, 0044257, 81258110 ####[place] 8[address]057 RBC (Bld) [#/Vol] 4.0 E12/L Low 4.3-5.9 [facility] Comment on above: Performed By: #### 1 8395798, 0297832, 1294477, 46884548 ####[address] [address] WBC corrected for nucl RBC Auto (Bld) [#/Vol] 8.0 E9/L Normal 4.0-11.0 [facility] Comment on above: Result Comment: Slid e reviewed by [email or web address]. Performed By: #### 1 1703435, 5728008, 0920778, 74387260 ####[address] [address] CRP HSon 10-29-2020 CRP High sensitivity method [Mass/Vol] 6.91 mg/dL High <=0.75 [facility] Comment on above: Performed By: #### 1 6717701, 7797158, 5699339, 52386121 ####[address] [place] [address] Consent for Treatmenton 10-13 Consent for Treatment [id number]:127 Normal [facility] Physician Orderon 10-29-2020 Physician Order [id number]#[id number]:127 Normal [facility] Sed Rate Automatedon 021 Sed Rate Automated 99 mm/hr High 0-34 [facility] Comment on above: Performed By: #### 1 2001545, 8137004, 7325167, 98659869 ####[facility] [address] [place] [address] GLUCOSE-POCTon 03-13-2019 Glucose [Mass/Vol] 157 mg/dL High 74 - 99 [facility] Comment on above: Performed By: #### P TINR #### [facility] [address] [place] [address] REFLEX TESTS FOR POS ANCAon 03-13-2019 MYELOPEROXIDASE AB 41 AU/mL High 0-19 [facility] Comment on above: Result Comment: INTE RPRETIVE INFORMATION: Myeloperoxidase Abs, IgG 19 AU/mL or Less ......... Negative 20-25 AU/mL .............. Equivocal 26 AU/mL or Greater ...... Positive Approximately 90% of patients with a P-ANCA pattern by IFA have antibodies specific for MPO. Performed By: #### R ANCA ####[facility] [address] [place] [address] Protein [Mass/Vol] 108 AU/mL High 0-19 [facility] Comment on above: Result Comment: INTE RPRETIVE INFORMATION: Serine Protease 3, IgG 19 AU/mL or Less ........ Negative 20-25 AU/mL ............. Equivocal 26 AU/mL or Greater ..... Positive Approximately 85% of patients with a C-ANCA pattern by IFA have antibodies specific for PR3. Performed by [facility], [address] [place], [place] [id number] [email or web address], Rafael Robertson MD - Lab. Director Performed By: #### R ANCA ####[facility] [place] [address] TAMIKA TITER/LUIS PANELon 2018 TAMIKA PATTERN SPECKLED Normal [facility] Comment on above: Performed By: #### P TINR #### [facility] [address] [place] [address] TAMIKA TITER 1:[address] [facility] Comment on above: Performed By: #### P TINR #### [facility] [address] [place] [address] ANCA WITH REFLEX TO MPO, PR3 on 03-12-2019 ANCA WITH REFLEX TO MPO, PR3 1:320 High <1:20 [facility] Comment on above: Result Comment: Lotus nuclear ANCA (p-ANCA) staining pattern observed and confirmed on formalin-fixed neutrophils. MPO/PR3 reflex testing to follow. INTERPRETIVE INFORMATION: Anti-Neutrophil Cyto Ab, IgG Neutrophil Cytoplasmic Antibodies (C-ANCA = granular cytoplasmic staining, P-ANCA = perinuclear staining) are found in the serum of over 90 percent of patients with certain necrotizing systemic vasculitides, and usually in less than 5 percent of patients with collagen vascular disease or arthritis. Performed by [facility], [address] [place] [id number] [email or web address], [email or web address] Robertson MD - Lab. Director Performed By: #### A NCAR ####[address] [address] CBCon 03-12-2019 Erythrocyte distribution width (RBC) [Ratio] 16.0 % High 11.5 - 14.5 [facility] Comment on above: Performed By: #### P TINR #### [facility] [address] [place] [address] Hematocrit (Bld) [Volume fraction] 25.6 % Low 36.0 - 46.0 [facility] Comment on above: Performed By: #### P TINR #### [facility] [address] [place] [address] Hemoglobin (Bld) [Mass/Vol] 7.9 g/dL Low 12.0 - 16.0 [facility] Comment on above: Performed By: #### P TINR #### [facility] [address] [place] [address] MCHC (RBC) [Mass/Vol] 30.9 g/dL Low 32.0 - 36.0 [facility] Comment on above: Performed By: #### P TINR #### [facility] [address] [place] [address] MCV (RBC) [Entitic vol] 95 fL Normal 80 - 100 [facility] Comment on above: Performed By: #### P TINR #### [facility] [address] [place] [address] Nucleated RBC/100 WBC (Bld) [Ratio] 0.0 /100 WBC Normal 0.0-0.0 [facility] Comment on above: Performed By: #### P TINR #### [facility] [address] [place] [address] Platelets (Bld) [#/Vol] 203 10*3/uL Normal 150 - 450 [facility] Comment on above: Performed By: #### P TINR #### [facility] [address] [place] [address] RBC (Bld) [#/Vol] 2.69 x10E12/L Low 4.00 - 5.20 [facility] Comment on above: Performed By: #### P TINR #### [facility] [address] [place] [address] WBC (Bld) [#/Vol] 13.8 10*3/uL High 4.4 - 11.3 [facility] Comment on above: Performed By: #### P TINR #### [facility] [address] [place] [address] Clinical Event Note-Nephrolo gyon 03-12-2019 Clinical Event Note-Nephrology Event: Topic: Nephrology Details: okay to discharge patient from nephrology standpoint with outpatient nephrology follow up continue on prednisone and MMF follow up pending serology and workup request kidney Bx ( slides and block) to be read at [facility] Kenia Sanchez MD, [place] Nephrology fellow P [id number] Electronic Signatures: Kenia Sanchez ( (Fellow)) (Signed 12-Mar-2019 19:09) Authored: Event Last Updated: 12-Mar-2019 19:09 by Kenia Sanchez ( (Fellow)) Normal [facility] Daily Progress Note-Medicine on 03-12-2019 Daily Progress Note-Medicine Service: Medicine Subjective Data: BHUMIKA WHEATLEY is a 68 year old Female who is Hospital Day # 5. Overnight Events: Patient had an uneventful night. Objective Data: Objective Information: ---- Intake and Output ----- Mn/Dy/Year TimeIntakeOutputNet Mar 12, 2019 6:00 [id number] Mar 11, 2019 10:00 [id number] The Intake and Output Totals for the last 24 hours are: IntakeOutputNet [id number] T PRBPSpO2 [id number]/7499% Date/Time03/12 8: 8: 8: 8: 8:29 Range(36.1C - 36.6C ) (84 - 99 ) (18 - 20 ) (126 - 136 )/ (74 - 77 ) (98% - 99% ) Physical Exam: Constitutional: NAD, alert, rate within normal limits, rhythm is regular, ctab, bs+ NTND, no lower extremity edema Medication: Medications: 1. Fludeoxyglucose F-18 - (Radiology Contrast): 10 milliCurie IntraVenous Push Once ANTI-INFECTIVES: 1. Sulfamethoxazole 800 mg - Trimethoprim 160 m tablet(s) Oral Schedule> CARDIOVASCULAR AGENTS: 1. amLODIPine (NORVASC): 10 mg Oral Daily CENTRAL NERVOUS SYSTEM AGENTS: 1. LORazepam: 0.5 mg Oral Every 8 Hours PRN GASTROINTESTINAL AGENTS: 1. Polyethylene Glycol: 17 gram(s) Oral Daily PRN HORMONES/HORMONE MODIFIERS: 1. predniSONE: 60 mg Oral Every 24 Hours 2. Levothyroxine: 100 microgram(s) Oral Daily IMMUNOLOGIC AGENTS: 1. Mycophenolate Mofetil: 250 mg Oral Every 12 Hours METABOLIC AGENTS: 1. Dextrose 50% in Water Injectable: 12.5 gram(s) IntraVenous Push Every 15 Minutes PRN 2. Dextrose 50% in Water Injectable: 25 gram(s) IntraVenous Push Every 15 Minutes PRN 3. Glucagon Injectable: 1 mg IntraMuscular Every 15 Minutes PRN NUTRITIONAL PRODUCTS: 1. Multivitamin with Minerals: 1 tablet(s) Oral Daily Recent Lab Results: Results: I have reviewed these laboratory results: Complete Blood Count 12-Mar-2019 09:14:00 ResultValue White Blood Cell Count 13.8 H Nucleated Erythrocyte Count 0.0 Red Blood Cell Count 2.69 L HGB 7.9 L HCT 25.6 L MCV 95 MCHC 30.9 L PLT 203 RDW-CV 16.0 H Renal Function Panel Trending View [id number] 09:14:00 11-Mar-2019 07:10:00 Glucose, [id number] H 134 H NA139 138 K4.8 4.5 CL104 103 Bicarbonate, Serum22 23 Anion Gap, Serum18 17 BUN87 H 90 H CREAT2.45 H 2.80 H GFR-Non [id number] A 17 A GFR- Cnaumxud86 A 21 A Calcium, Serum8.6 8.6 Phosphorus, Serum5.0 H 4.7 ALB2.9 L 2.9 L Glucose_POCT Trending View [id number] 08:26:00 11-Mar-2019 20:46:00 11-Mar-2019 16:17:00 11-Mar-2019 07:02:00 10-Mar-2019 21:23:00 Glucose-EHWU513 H 156 H 88 152 H 155 H Complete Blood Count + Differential 11-Mar-2019 07:10:00 ResultValue White Blood Cell Count 13.9 H Nucleated Erythrocyte Count 0.0 Red Blood Cell Count 2.79 L HGB 8.0 L HCT 26.2 L MCV 94 MCHC 30.5 L PLT 223 RDW-CV 16.0 H Neutrophil % 89.1 Immature Granulocytes % 3.4 H Lymphocyte % 3.2 Monocyte % 4.2 Eosinophil % 0.0 Basophil % 0.1 Neutrophil Count 12.37 H Lymphocyte Count 0.44 L Monocyte Count 0.58 Eosinophil Count 0.00 Basophil Count 0.02 Assessment and Plan: Assessment: Acute Renal Failure: 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 creatinine improved further today -continue mmf and steroids -follow up lab testing as requested by rheum/renal services. inputs greatly appreciated -obtaining actual path slides for review here. reportedly to come today from outside hospital -follow up PET scan -F/u renal recommendations. Input greatly appreciated Cardiovascular: -continue amlodipine Endo: -continue synthroid GI: constipation -miralax and docusate DVT Proph Nutrition Diagnosis: Nutrition Diagnosis Agree with dietitians assessment and diagnoses as stated. Moderate protein calorie malnutrition related to chronic illness (suspected lupus nephritis) as evidence by poor appetite/inadequate intake, ~25# unintended weight loss over past 3 months with decline in muscle mass compared to baseline. Electronic Signatures: Wilberto Morgan) (Signed 12-Mar-2019 13:44) Authored: Service, Subjective Data, Objective Data, Assessment and Plan, Signature/Cosignature/Atte station Last Updated: 12-Mar-2019 13:44 by Wilberto Morgan) Normal [facility] Daily Progress Note-Medicine Service: Medicine Subjective Data: BHUMIKA WHEATLEY is a 68 year old Female who is Hospital Day # 5. No events overnight. Patient reports that she slept well overnight. Last BM today AM, voiding well with clear yellow urine and no blood. Patient reports that Miralax is helping with her bowel movements. Denies CP, abdominal/flank pain, dysuria, hematuria, SOB, and fatigue. Reports that her appetite has increased compared to yesterday. Objective Data: Objective Information: ---- Intake and Output ----- Mn/Dy/Year TimeIntakeOutputNet Mar 12, 2019 6:00 [id number] Mar 11, 2019 10:00 [id number] The Intake and Output Totals for the last 24 hours are: IntakeOutputNet [id number] T PRBPSpO2 [id number]/7499% Date/Time03/12 8: 8: 8: 8: 8:29 Range(36.1C - 36.6C ) (84 - 99 ) (18 - 20 ) (126 - 136 )/ (74 - 77 ) (98% - 99% ) Physical Exam: Constitutional: in no acute distress, sitting upright on bed comfortably Eyes: PERRL, EOMI, clear sclera Respiratory/Thorax: CTAB, normal breath sounds with good chest expansion, thorax symmetric. No wheezes/rales/rhonchi Cardiovascular: Regular, rate and rhythm, no murmurs, normal S 1and S 2 Gastrointestinal: Nondistended, soft, non-tender, no rebound tenderness or guarding, +BS Extremities: no swelling/tenderness/erythe ma in lower extremities bilaterally Neurological: alert and oriented to person, place, and time Psychological: Appropriate mood and behavior Skin: Warm and dry, no rashes Recent Lab Results: Results: I have reviewed these laboratory results: Complete Blood Count 12-Mar-2019 09:14:00 ResultValue White Blood Cell Count 13.8 H Nucleated Erythrocyte Count 0.0 Red Blood Cell Count 2.69 L HGB 7.9 L HCT 25.6 L MCV 95 MCHC 30.9 L PLT 203 RDW-CV 16.0 H Renal Function Panel 12-Mar-2019 09:14:00 ResultValue Glucose, Serum 123 H NA 139 K 4.8 CL 104 Bicarbonate, Serum 22 Anion Gap, Serum 18 BUN 87 H CREAT 2.45 H GFR-Non 20 A GFR- 24 A Calcium, Serum 8.6 Phosphorus, Serum 5.0 H ALB 2.9 L Assessment and Plan: Assessment: Bhumika Peterson is a 68 year old woman with 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 Today, patient is hemodynamically and clinically stable, denying abdominal/flank pain, hematuria, and fatigue, and is stable for discharge pending renal recs. Updates 03/12: -PET scan today morning due to severe history of malignancy and concern that this presentation may be brought on by underlying malignancy -pending Renal recs if patient is stable for discharge and for duration of mycophenolate medication -follow up whether [facility] slides have been uploaded to path #Nephritis vs. ANCA vasculitis (concurrent), SLE nephritis: low C3, C4, +TAMIKA, +anti-SM, +anti-FLOW WORKER, +anti-chromatin vs. 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 -Prophylaxis: bactrim, PV13 vaccine -Prednisone 60 mg every day and mycophenolate 250mg BID -stable for discharge from Rheum standpoint -follow up on Renal recs whether patient is stable for discharge from renal standpoint -Pending autoimmune labs (ANCA reflex to MPO, PR3, TAMIKA reflex LUIS) -Follow up outpatient renal and rheum pending discharge -creatinine downtrending 2.84 -> 2.8 -> 2.45 #hypothyroidism -home levothyroxine 100mg PO daily #HTN -amlodipine 10 mg daily #weight loss ~25 pounds: moderate protein calorie malnutrition related to chronic illness (suspected lupus nephritis) -daily multivitamin per nutrition recs -patient appetite and intake improving F: none E: as needed N: renal diet G: none I: PIV FULL CODE Santi Raymond Pager: [phone] [facility] Nutrition Diagnosis: Nutrition Diagnosis Agree with dietitians assessment and diagnoses as stated. Moderate protein calorie malnutrition related to chronic illness (suspected lupus nephritis) as evidence by poor appetite/inadequate intake, ~25# unintended weight loss over past 3 months with decline in muscle mass compared to baseline. Signature/Cosignature/Atte station: Note Completion: Medical Student Cody, or a resident under my supervision, was present with the medical student who participated in the documentation of this note. I have personally seen and examined the patient and performed the medical decision-making components. I have reviewed the medical student documentation and/or resident documentation and verified the findings in the note as written with additions or exceptions as stated in the body of this note. I personally evaluated the patient [id number] Comments/ Additional Findings Please see my note for further details. Electronic Signatures: Margret Raymond (MED [employer]) (Signed 12-Mar-2019 14:39) Authored: Service, Subjective Data, Objective Data, Assessment and Plan Wilberto Morgan) (Signed 16-Mar-2019 07:47) Authored: Signature/Cosignature/Atte station Co-Signer: Service, Subjective Data, Objective Data, Assessment and Plan Last Updated: 16-Mar-2019 07:47 by Wilberto Morgan) Normal [facility] Daily Progress Note-Rheumato logyon 03-12-2019 Daily Progress Note-Rheumatology Service: Rheumatology Subjective Data: BHUMIKA WHEATLEY is a 68 year old Female who is Hospital Day # 5. Patient seen and examined at bedside. No acute events. Objective Data: Objective Information: ---- Intake and Output ----- Mn/Dy/Year TimeIntakeOutputNet Mar 12, 2019 2:00 [id number] Mar 12, 2019 6:00 [id number] Mar 11, 2019 10:00 [id number] The Intake and Output Totals for the last 24 hours are: IntakeOutputNet [id number] T PRBPSpO2 [id number]/6899% Date/Time03/12 15: 15: 15: 15: 15:00 Range(36.4C - 36.9C ) (81 - 99 ) (18 - 20 ) (126 - 136 )/ (68 - 74 ) (98% - 99% ) Highest temp of 36.9 C was recorded at 03/12 15:00 ---- Intake and Output ----- [facility]Dy[facility] Mar 12, 2019 2:00 [id number] Mar 12, 2019 6:00 [id number] Mar 11, 2019 10:00 [id number] The Intake and Output Totals for the last 24 hours are: IntakeOutputNet [id number] General - NAD Cardiovascular - RRR no m/r/g. Lungs - Clear to auscultation, no use of accessory muscles, no crackles or wheezes. Abdomen - Normal bowel sounds, abdomen soft and nontender. Extremities - No edema, cyanosis or clubbing Musculoskeletal - Upper extremities: 5/5 in strength in bilateral distal and proximal extremities. Shoulders: No joint effusion or warmth or pain on palpation, full ROM Hands: No joint effusion or warmth or pain on palpation, full ROM. Able to fully make a fist bilaterally. No pitting or spooning of the nails bilaterally. Wrists: No joint effusion or warmth or pain on palpation, full ROM. Elbows: No joint effusion or warmth or pain on palpation, full ROM Spine: No SI joint pain. Lower extremities: 5/5 strength in distal and proximal extremities. good symmetric distal pulses, no peripheral edema, no clubbing/cyanosis. Knees: No joint effusion or warmth or pain on palpation, full ROM. Feet: No ankle joint effusion or warmth on palpation, full ROM, no pain with MTP squeeze Neurological - Alert and oriented x 3, no focal deficit Medication: Medications: Continuous Medications ------ No continuous medications are active Scheduled Medications ------ 1. amLODIPine (NORVASC): 10 mg Oral Daily 2. Fludeoxyglucose F-18 - (Radiology Contrast): 10 milliCurie IntraVenous Push Once 3. Levothyroxine: 100 microgram(s) Oral Daily 4. Multivitamin with Minerals: 1 tablet(s) Oral Daily 5. Mycophenolate Mofetil: 250 mg Oral Every 12 Hours 6. predniSONE: 60 mg Oral Every 24 Hours 7. Sulfamethoxazole 800 mg - Trimethoprim 160 m tablet(s) Oral Schedule> PRN Medications ------ 1. Dextrose 50% in Water Injectable: 25 gram(s) IntraVenous Push Every 15 Minutes 2. Dextrose 50% in Water Injectable: 12.5 gram(s) IntraVenous Push Every 15 Minutes 3. Glucagon Injectable: 1 mg IntraMuscular Every 15 Minutes 4. LORazepam: 0.5 mg Oral Every 8 Hours 5. Polyethylene Glycol: 17 gram(s) Oral Daily Recent Lab Results: Results: I have reviewed these laboratory results: Complete Blood Count 09-Mar-2019 07:07:00 ResultValue White Blood Cell Count 12.7 H Nucleated Erythrocyte Count 0.0 Red Blood Cell Count 2.80 L HGB 8.6 L HCT 25.9 L MCV 93 MCHC 33.2 PLT 229 RDW-CV 16.1 H Renal Function Panel 09-Mar-2019 07:07:00 ResultValue Glucose, Serum 128 H NA 140 K 4.6 CL 103 Bicarbonate, Serum 25 Anion Gap, Serum 17 BUN 88 H CREAT 2.66 H GFR-Non 18 A GFR- 22 A Calcium, Serum 8.7 Phosphorus, Serum 4.4 ALB 2.9 L Hepatitis B Surface Antibody 09-Mar-2019 07:07:00 ResultValue Hepatitis B Surface, Antibody < 3.1 Hepatitis B Surface Antigen 09-Mar-2019 07:07:00 ResultValue Hep.B Surface Ag NONREACTIVE Reference Range: NONREACTIVE Patients receiving more than 5 mg/day of biotin may have interference in test results. A sample should be taken no sooner than eight hours after previous dose. Contact the testing laboratory for additi C3 Complement, Serum 09-Mar-2019 07:07:00 ResultValue C3 Complement, Serum 68 L C4 Complement, Serum 09-Mar-2019 07:07:00 ResultValue C4 Complement, Serum <8 A TSH with Reflex to Free T4 if Abnormal 08-Mar-2019 19:41:00 ResultValue Thyroid Stimulating Hormone, Serum 0.15 L Free Thyroxine, Serum 08-Mar-2019 19:41:00 ResultValue Free Thyroxine, Serum 1.85 H Urinalysis 08-Mar-2019 17:46:00 ResultValue Color, Urine YELLOW Reference Range: STRAW,YELLOW Appearance, Urine HAZY Specific Camino, Urine 1.008 pH, Urine 5.0 Protein, Urine 100 (2+) A Glucose, Urine >=500 (3+) A Blood, Urine LARGE (3+) A Ketones, Urine NEGATIVE Bilirubin, Urine NEGATIVE Urobilinogen, Urine <2.0 Nitrite, Urine NEGATIVE Leukocyte Esterase, Urine NEGATIVE Urinalysis, Microscopic 08-Mar-2019 17:46:00 ResultValue White Cells 10 A Red Blood Cells 56 A Epithelial Cells, Squamous 1 Bacteria, Urine 1+ A Complete Blood Count + Differential 08-Mar-2019 13:00:00 ResultValue White Blood Cell Count 16.1 H Nucleated Erythrocyte Count 0.0 Red Blood Cell Count 3.05 L HGB 9.3 L HCT 28.3 L MCV 93 MCHC 32.9 PLT 256 RDW-CV 16.1 H Neutrophil % 85.5 Immature Granulocytes % 3.7 H Lymphocyte % 3.0 Monocyte % 7.5 Eosinophil % 0.0 Basophil % 0.3 Neutrophil Count 13.74 H Lymphocyte Count 0.49 L Monocyte Count 1.21 H Eosinophil Count 0.00 Basophil Count 0.05 Comprehensive Metabolic Panel 08-Mar-2019 13:00:00 ResultValue Glucose, Serum 116 H NA 140 K 4.0 CL 102 Bicarbonate, Serum 26 Anion Gap, Serum 16 BUN 87 H CREAT 2.68 H GFR-Non 18 A GFR- 22 A Calcium, Serum 8.9 ALB 3.2 L ALKP 46 T Pro 6.4 T Bili 0.7 Alanine Aminotransferase, Serum 15 Aspartate Transaminase, Serum 11 PT + INR, Plasma 08-Mar-2019 13:00:00 ResultValue Prothrombin Time, Plasma 10.9 International Normalized Ratio, Plasma 1.0 Sedimentation Rate, Erythrocyte 08-Mar-2019 13:00:00 ResultValue Sedimentation Rate, Erythrocyte 33 H C Reactive Protein, Serum 08-Mar-2019 13:00:00 ResultValue C Reactive Protein, Serum 0.66 I have reviewed these laboratory results: Complete Blood Count 12-Mar-2019 09:14:00 ResultValue White Blood Cell Count 13.8 H Nucleated Erythrocyte Count 0.0 Red Blood Cell Count 2.69 L HGB 7.9 L HCT 25.6 L MCV 95 MCHC 30.9 L PLT 203 RDW-CV 16.0 H Renal Function Panel Trending View [id number] 09:14:00 11-Mar-2019 07:10:00 Glucose, [id number] H 134 H NA139 138 K4.8 4.5 CL104 103 Bicarbonate, Serum22 23 Anion Gap, Serum18 17 BUN87 H 90 H CREAT2.45 H 2.80 H GFR-Non [id number] A 17 A GFR- Ianfxctb75 A 21 A Calcium, Serum8.6 8.6 Phosphorus, Serum5.0 H 4.7 ALB2.9 L 2.9 L Glucose_POCT Trending View [id number] 08:26:00 11-Mar-2019 20:46:00 11-Mar-2019 16:17:00 Glucose-[id number] H 156 H 88 Complete Blood Count + Differential 11-Mar-2019 07:10:00 ResultValue White Blood Cell Count 13.9 H Nucleated Erythrocyte Count 0.0 Red Blood Cell Count 2.79 L HGB 8.0 L HCT 26.2 L MCV 94 MCHC 30.5 L PLT 223 RDW-CV 16.0 H Neutrophil % 89.1 Immature Granulocytes % 3.4 H Lymphocyte % 3.2 Monocyte % 4.2 Eosinophil % 0.0 Basophil % 0.1 Neutrophil Count 12.37 H Lymphocyte Count 0.44 L Monocyte Count 0.58 Eosinophil Count 0.00 Basophil Count 0.02 Assessment and Plan: Assessment: 68 Y/O F with PMHx stage 1 IDC (T1N0M0) s/p lumpectomy and radiation in 1992, hx thyroid cancer s/p thyroidectomy, kidney stones, 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 Pt's symptoms started about a year ago with persistent hematuria, recurrent UTIs accompanied with intermittent flank pain, fatigue, anorexia, alopecia, and weight loss. No symptoms of active SLE other than fatigue and alopecia, no typical Hx of GPA. Had +TAMIKA, +anti-SM, +anti-FLOW WORKER, and +anti-chromatin antibodies, low C3 and C4, + ANCA, + PR3 creatinine peaked to 4.17 on 03/03 then downtrend to 2.6 today (baseline 0.7-1.0 at end of 2018) UA + for hematuria, proteinuria + Anemia, low Albumin S/P kidney biopsy on 03/01, Predominantly crescent formation with focal endocapillary proliferative changes, as well as significant global primary sclerosis with moderate to severe fibrotic changes. Immunohistochemistry showed granular, mesangial to capillary wall staining for IgA( trace), IgG(1-2+), IgM(1+), C3(2+), and C1q(trace), kappa and lambda that was stained equally throughout the tubular interstitium. Was started on pulse steroid treatment with 1000mg methylprednisolone and mycophenolate 500mg BID, which was eventually switched to 60mg prednisone daily + cyclophosphamide 50mg BID after biopsy results, and was started on bactrim for PCP prophylaxis. Creatinine peaked at 4.17 on 03/03 then downtrended to 2.61 on transfer from [facility] Hepatitis and HIV screens neg, C3 68 / C4 <8 , CXR didn't show acute changes Labs from [facility] reviewed, it showed C-ANCA 1:40, MPO 25.7, PR3 8, ESR 100, TAMIKA +, Anti FLOW WORKER>8, Anti SM 1.5, Chromatin 4.1, neg DNA Update: Cr 2.45 today. 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 - Can be discharged from Rheumatology standpoint Pt seen, examined, and discussed with attending, Dr. Tijerina Thank you for the consult, please don't hesitate to contact me if you have any questions. Vinayak Drummond M.D. Rheumatology Fellow, PGY 4 Consult Rheumatology pager # [phone] Faye Signature/Cosignature/Atte station: Note Completion: Attending AttestationI saw and evaluated the patient. I personally obtained the silva and critical portions of the history and physical exam or was physically present for silva and critical portions performed by the resident/fellow. I reviewed the resident/fellows documentation and discussed the patient with the resident/fellow. I agree with the resident/fellows medical decision making as documented in the note. I personally evaluated the patient [id number] Electronic Signatures: Corina Tijerina) (Signed 13-Mar-2019 07:57) Authored: Signature/Cosignature/Atte station Co-Signer: Service, Subjective Data, Objective Data, Assessment and Plan, Signature/Cosignature/Atte station Vinayak Drummond (Fellow)) (Signed 12-Mar-2019 21:41) Authored: Service, Subjective Data, Objective Data, Assessment and Plan, Signature/Cosignature/Atte station Last Updated: 13-Mar-2019 07:57 by Corina Tijerina) Normal [facility] Discharge [id number] Discharge Profile2 Discharge Orders: Anticipated Discharge Date: Anticipated Discharge [id number] Anticipated Discharge Time12:40 Activity: activity as tolerated. May shower. May return to school/work Instructions: May drive. Diet: Dietregular Labs 1: Lab Test(s)Basic Metabolic Panel, CBC Date To Be Drawn03/20, 03/27, 04/03 Call Results ToDr. Wilberto Tyson -- Courtesy Driver Call Provider If (Homegoing Patients): Breathing faster than normal. Breathing harder than normal or having retractions. Chills. Drinking less than normal. Urinating less than normal, over 1 day. Urinating less than 4 times per day. Any new concerning symptoms. Hospital Course (Home Care/Gold Form): Hospital Course: Hospital Course: include significant abnormal lab values Ms. Wheatley is a 68 year old female who is admitted here from [facility] for management of SLE nephritis vs ANCA vasculitis or concurrent. PMHx is significant for stage 1 intraductal carcinoma (T1N0M0) s/p lumpectomy and radiation (1992), hx of thyroid cancer (unclear what type of thyroid cancer) s/p thyroidectomy (on levothyroxine 100 mcg), and hx of kidney stones. Approximately 1 year ago, patient noted persistent R flank pain w/ work-up significant for proteinuria, and hematuria, requiring multiple w/u for UTI. Cystoscopy and CT abdomen were unremarkable for any bladder/renal masses or malignancy. In the past few months, patient noted a ~20lb weight loss, generalized malaise/fatigue, decreased appetite, continued R flank pain, and some hair loss. Pt was prescribed with prednisone (unclear dose) after visit w/ PCP, which demonstrated an elevated Cr of 3.3 (Cr baseline 0.7-1.0 around end of 2017). Further lab work-up demonstrated +TAMIKA, +anti-Sm, anti-FLOW WORKER, and +anti-chromatin antibodies. Labs also demonstrated low C3 (unclear value), low C4 (unclear value) , with elevated Cr (3.2) (suggestive of lupus nephritis), and was subsequently admitted for concern for nephritis (lupus) vs vasculitis. [facility] Cr was 3.57 and was started on 1000mg methylprednisolone daily and mycophenolate 500 mg BID x3 days, which was transitioned to 60mg prednisone daily and cyclophosphamide 50mg BID after biopsy results. Patient's creatine peaked at 4.17 on 03/03. 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 Immunohistochemistry staining demonstrated granular, mesangial to capillary wall staining for IgA (trace), IgG (1-2+), IgM (1+), C3 (2+), C1q (trace), kappa (1+) and lambda (1-2+). All other stains were negative within the glomeruli and no significant extraglomerular staining. Entiat and lambda stain were equally shown throughout the tubulointerstitium. 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 Patient was also hypertensive on admission (SBP 170s) and was reduced to 130s after starting on amlodipine 10mg/daily. Bactrim was started for PCP prophylaxis. On admission to [facility], pt report no symptoms associated with lupus including malar rash, joint pain. ROS also negative for SOB, sinus drainage, hemoptysis, peripheral edema, blurry vision, confusion, N/V/F, pruritis Cr downtrended to 2.61. ROS is currently only positive for right flank pain, hx of hair loss and decreased appetite. Renal and rheumatology were consulted, patient was continued on prednisone and started of MMF 250mg BID. Patient's Cr continued to improve. Due to concern for underlying malignancy, PET CT was done, low risk of malignancy, and results will be followed by PCP, rheum and nephro as an outpatient. Patient was placed on MMF 500mg BID x7days, then 1000mg BID x7 days and then 1500mg x7 days. Patient to obtain weekly labs (CBC and BMP) as an outpatient until follow up with creative specialist Dr. Tyson. Vitally stable on day of discharge. Things to Follow Up: - PET scan final read by PCP, rheum and nephro - remember to uptitrate cellcept from 500mg twice a day for 7 days then 1000mg twice a day for 7 days and 1500mg twice a day for 7 days. - please obtain CBC and RFP weekly until follow up with creative specialist Provider FINAL REVIEW of Orders: Final Review: Final Review of Medication Reconciliation and Orders Completedby Physician Reviewing ProviderLia Leonardo MD (Resident) at 13-Mar-2019 14:19:15 Appointments: Follow-Up Appointment 01: Physician/Dept/ServicePCP Call to Schedule inOffice requests you call to schedule appointment CommentsPlease call to schedule your follow up with your primary care provider. [employer] Department Manager services unable to locate primary care information. Follow-Up Appointment 02: Physician/Dept/ServiceDr. Wilberto Tyson Nephrology Reason for ReferralSLE nephritis vs. ANCA vasculitis Scheduled Date/[id number] 12:[address] [place] [address] Fx [phone] (closest location & Provider) 39 miles Phone [phone] CommentsPlease arrive 15 minutes early to complete registration & bring insurance card & photo id. Please call the office if unable to keep this appointment. Follow-Up Appointment 03: Physician/Dept/ServiceDr. Alberto Lechuga Rheumatology Reason for ReferralSLE nephritis vs. ANCA vasculitis Call to Schedule inOffice requests you call to schedule appointment [id number] [place] [address] (Closest Location) Phone [phone] CommentsOffice prefer patient call to schedule new patient visit. Please have insurance information available. Electronic Signatures: Yari Killian (PT ACC REP) (Signed 12-Mar-2019 14:03) Authored: Appointments Lia Leonardo ( (Resident)) (Signed 13-Mar-2019 14:19) Authored: Discharge Orders, Hospital Course (Home Care/Gold Form), Provider FINAL REVIEW of Orders, Appointments, Gold Form - It Trainee Summary Last Updated: 13-Mar-2019 14:19 by Lia Leonardo ( (Resident)) Normal [facility] GLUCOSE-POCTon 03-12-2019 Glucose [Mass/Vol] 127 mg/dL High 74 - 99 [facility] Comment on above: Performed By: #### E SRWS #### [facility] [address] [place] [address] PET TUMORS / NOT PREVIOUSLY LISTEDon 03-12-2019 PET TUMORS / NOT PREVIOUSLY LISTED Patient Name: BHUMIKA WHEATLEY STUDY: PET TUMORS / NOT PREVIOUSLY LISTED; 03/12/2019 12:58 pm INDICATION: multiple previous cancers, presenting with autoimmune syndrome with labs equivocal for ANCA vasculitis vs lupus nephritis. ruling out cancer associated phenomena. COMPARISON: None. ACCESSION NUMBER(S): [id number] ORDERING CLINICIAN: SUNNY VICENTE TECHNIQUE: DIVISION OF NUCLEAR MEDICINE POSITRON EMISSION TOMOGRAPHY (PET-CT) The patient received an intravenous dose of 9.2 mCi of Fluorine-18 fluorodeoxyglucose (FDG). Positron emission tomographic (PET) images from vertex of the skull through the toes were then acquired after a one hour delay. Also acquired was a contemporaneous low dose non-contrast CT scan performed for attenuation correction of PET images and anatomic localization. The PET and CT images were digitally fused for display. All images were acquired on a combined PET-CT scanner unit. Some areas of FDG accumulation may be described in standardized uptake value (SUV) units. CODING: Initial Treatment Strategy (PI) CALIBRATION: Dose Umebwkxjn-qu-Hhud Interval (mins): 62 min Mediastinal bloodpool SUV (normal 1.5-2.5): 2.3 Blood glucose: 127 mg/dL FINDINGS: NECK: No focal hypermetabolic soft tissue lesion is seen in the neck. No hypermetabolic cervical lymphadenopathy is present. CHEST: No focal hypermetabolic lesion is seen in the lung parenchyma. No evidence of hypermetabolic mediastinal, hilar or axillary lymphadenopathy. ABDOMEN AND PELVIS: No hypermetabolic soft tissue lesion is present in the abdomen and pelvis. No evidence of hypermetabolic lymphadenopathy. Physiologic radiotracer uptake is present in the liver and spleen with excretion into the bowel loops and the genitourinary tract. MUSCULOSKELETAL: There is no focal hypermetabolic lesion to suggest osseous metastasis. IMPRESSION: There is no definite evidence of malignancy. I personally reviewed the image(s) / study and agree with the findings and interpretation as stated. This study was interpreted at [facility]. Electronically signed by: DOUG ARGUETA MD Normal [facility] RENAL FUNCTION PANELon 03-12 Albumin [Mass/Vol] 2.9 g/dL Low 3.4 - 5.0 [facility] Comment on above: Performed By: #### P TINR #### [facility] [address] [place] [address] Anion gap [Moles/Vol] 18 mmol/L Normal 10 - 20 [facility] Comment on above: Performed By: #### P TINR #### [facility] [address] [place] [address] Calcium [Mass/Vol] 8.6 mg/dL Normal 8.6 - 10.6 [facility] Comment on above: Performed By: #### P TINR #### [facility] [address] [place] [address] Chloride [Moles/Vol] 104 mmol/L Normal 98 - 107 [facility] Comment on above: Performed By: #### P TINR #### [facility] [address] [place] [address] Creatinine [Mass/Vol] 2.45 mg/dL High 0.50 - 1.05 [facility] Comment on above: Performed By: #### P TINR #### [facility] [address] [place] [address] GFR- AM. 24 mL/min/1.73m2 Abnormal >60 [facility] Comment on above: Result Comment: CALC ULATIONS OF ESTIMATED GFR ARE PERFORMED USING THE MDRD STUDY EQUATION FOR THE IDMS-TRACEABLE CREATININE METHODS. CLIN CHEM 2007;53:766-72 Performed By: #### P TINR #### [facility] [address] [place] [address] GFR-NON AM. 20 mL/min/1.73m2 Abnormal >60 [facility] Comment on above: Performed By: #### P TINR #### [facility] [address] [place] [address] Glucose [Mass/Vol] 123 mg/dL High 74 - 99 [facility] Comment on above: Performed By: #### P TINR #### [facility] [address] [place] [address] HCO3 (Bld) [Moles/Vol] 22 mmol/L Normal 21 - 32 [facility] Comment on above: Performed By: #### P TINR #### [facility] [address] [place] [address] Phosphate [Mass/Vol] 5.0 mg/dL High 2.5 - 4.9 [facility] Comment on above: Result Comment: The performance characteristics of phosphorus testing in heparinized plasma have been validated by the individual laboratory site where testing is performed. Testing on heparinized plasma is not approved by the FDA; however, such approval is not necessary. Performed By: #### P TINR #### [facility] [address] [place] [address] Potassium [Moles/Vol] 4.8 mmol/L Normal 3.5 - 5.3 [facility] Comment on above: Performed By: #### P TINR #### [facility] [address] [place] [address] Sodium [Moles/Vol] 139 mmol/L Normal 136 - 145 [facility] Comment on above: Performed By: #### P TINR #### [facility] [address] [place] [address] Urea nitrogen [Mass/Vol] 87 mg/dL High 6 - 23 [facility] Comment on above: Performed By: #### P TINR #### [facility] [address] [place] [address] CBC AND DIFFERENTIALon 03-11 % AUTOMATED IMMATURE GRAN 3.4 % High 0.0 - 0.9 [facility] Comment on above: Result Comment: Perc ent differential counts (%) should be interpreted in the context of the absolute cell counts (cells/L). Performed By: #### E SRWS #### [facility] [address] [place] [address] Basophils (Bld) [#/Vol] 0.02 10*3/uL Normal 0.00 - 0.10 [facility] Comment on above: Performed By: #### E SRWS #### [facility] [address] [place] [address] Basophils/100 WBC (Bld) 0.1 % Normal 0.0 - 2.0 [facility] Comment on above: Performed By: #### E SRWS #### [facility] [address] [place] [address] Eosinophils (Bld) [#/Vol] 0.00 10*3/uL Normal 0.00 - 0.70 [facility] Comment on above: Performed By: #### E SRWS #### [facility] [address] [place] [address] Eosinophils/100 WBC (Bld) 0.0 % Normal 0.0 - 6.0 [facility] Comment on above: Performed By: #### E SRWS #### [facility] [address] [place] [address] Erythrocyte distribution width (RBC) [Ratio] 16.0 % High 11.5 - 14.5 [facility] Comment on above: Performed By: #### E SRWS #### [facility] [address] [place] [address] Hematocrit (Bld) [Volume fraction] 26.2 % Low 36.0 - 46.0 [facility] Comment on above: Performed By: #### E SRWS #### [facility] [address] [place] [address] Hemoglobin (Bld) [Mass/Vol] 8.0 g/dL Low 12.0 - 16.0 [facility] Comment on above: Performed By: #### E SRWS #### [facility] [address] [place] [address] Lymphocytes (Bld) [#/Vol] 0.44 10*3/uL Low 1.20 - 4.80 [facility] Comment on above: Performed By: #### E SRWS #### [facility] [address] [place] [address] Lymphocytes/100 WBC (Bld) 3.2 % Normal 13.0 - 44.0 [facility] Comment on above: Performed By: #### E SRWS #### [facility] [address] [place] [address] MCHC (RBC) [Mass/Vol] 30.5 g/dL Low 32.0 - 36.0 [facility] Comment on above: Performed By: #### E SRWS #### [facility] [address] [place] [address] MCV (RBC) [Entitic vol] 94 fL Normal 80 - 100 [facility] Comment on above: Performed By: #### E SRWS #### [facility] [address] [place] [address] Monocytes (Bld) [#/Vol] 0.58 10*3/uL Normal 0.10 - 1.00 [facility] Comment on above: Performed By: #### E SRWS #### [facility] [address] [place] [address] Monocytes/100 WBC (Bld) 4.2 % Normal 2.0 - 10.0 [facility] Comment on above: Performed By: #### E SRWS #### [facility] [address] [place] [address] Neutrophils (Bld) [#/Vol] 12.37 10*3/uL High 1.20 - 7.70 [facility] Comment on above: Performed By: #### E SRWS #### [facility] [address] [place] [address] Neutrophils/100 WBC (Bld) 89.1 % Normal 40.0 - 80.0 [facility] Comment on above: Performed By: #### E SRWS #### [facility] [address] [place] [address] Nucleated RBC/100 WBC (Bld) [Ratio] 0.0 /100 WBC Normal 0.0-0.0 [facility] Comment on above: Performed By: #### E SRWS #### [facility] [address] [place] [address] Platelets (Bld) [#/Vol] 223 10*3/uL Normal 150 - 450 [facility] Comment on above: Performed By: #### E SRWS #### [facility] [address] [place] [address] RBC (Bld) [#/Vol] 2.79 x10E12/L Low 4.00 - 5.20 [facility] Comment on above: Performed By: #### E SRWS #### [facility] [address] [place] [address] WBC (Bld) [#/Vol] 13.9 10*3/uL High 4.4 - 11.3 [facility] Comment on above: Performed By: #### E SRWS #### [facility] [address] [place] [address] Daily Progress Note-Medicine on 03-11-2019 Daily Progress Note-Medicine Service: Medicine Subjective Data: BHUMIKA WHEATLEY is a 68 year old Female who is Hospital Day # 4. Overnight Events: Patient had an uneventful night. Objective Data: Objective Information: ---- Intake and Output ----- Mn/Dy/Year TimeIntakeOutputNet Mar 11, 2019 6:00 [id number] Mar 10, 2019 10:00 [id number] The Intake and Output Totals for the last 24 hours are: IntakeOutputNet [id number] T PRBPSpO2 [id number]/7799% Date/Time03/11 15: 15: 15: 15: 15:40 Range(36.1C - 36.5C ) (72 - 93 ) (18 - 19 ) (119 - 126 )/ (66 - 77 ) (97% - 99% ) Physical Exam: Constitutional: NAD, alert, rate within normal limits, rhythm is regular, ctab, bs+ NTND, no lower extremity edema Medication: Medications: 1. Fludeoxyglucose F-18 - (Radiology Contrast): 10 milliCurie IntraVenous Push Once ANTI-INFECTIVES: 1. Sulfamethoxazole 800 mg - Trimethoprim 160 m tablet(s) Oral Schedule> CARDIOVASCULAR AGENTS: 1. amLODIPine (NORVASC): 10 mg Oral Daily CENTRAL NERVOUS SYSTEM AGENTS: 1. LORazepam: 0.5 mg Oral Every 8 Hours PRN GASTROINTESTINAL AGENTS: 1. Polyethylene Glycol: 17 gram(s) Oral Daily PRN HORMONES/HORMONE MODIFIERS: 1. predniSONE: 60 mg Oral Every 24 Hours 2. Levothyroxine: 100 microgram(s) Oral Daily IMMUNOLOGIC AGENTS: 1. Mycophenolate Mofetil: 250 mg Oral Every 12 Hours METABOLIC AGENTS: 1. Dextrose 50% in Water Injectable: 12.5 gram(s) IntraVenous Push Every 15 Minutes PRN 2. Dextrose 50% in Water Injectable: 25 gram(s) IntraVenous Push Every 15 Minutes PRN 3. Glucagon Injectable: 1 mg IntraMuscular Every 15 Minutes PRN Recent Lab Results: Results: I have reviewed these laboratory results: Glucose_POCT Trending View [id number] 16:17:00 11-Mar-2019 07:02:00 10-Mar-2019 21:23:00 10-Mar-2019 16:26:00 10-Mar-2019 07:40:00 09-Mar-2019 20:41:00 Glucose-POCT88 152 H 155 H 161 H 137 H 263 H Complete Blood Count + Differential Trending View [id number] 07:10:00 10-Mar-2019 07:56:00 White Blood Cell Count13.9 H 14.6 H Nucleated Erythrocyte Count0.0 0.0 Red Blood Cell Count2.79 L 2.73 L HGB8.0 L 8.3 L HCT26.2 L 27.3 L MCV94 100 MCHC30.5 L 30.4 L NLP392 223 RDW-CV16.0 H 16.4 H Neutrophil %89.1 87.2 Immature Granulocytes %3.4 H 3.0 H Lymphocyte %3.2 4.1 Monocyte %4.2 5.4 Eosinophil %0.0 0.0 Basophil %0.1 0.3 Neutrophil Count12.37 H 12.69 H Lymphocyte Count0.44 L 0.60 L Monocyte Count0.58 0.78 Eosinophil Count0.00 0.00 Basophil Count0.02 0.05 Renal Function Panel Trending View [id number] 07:10:00 10-Mar-2019 07:56:00 Glucose, Plqxk574 H 129 H NA138 139 K4.5 4.4 CL103 103 Bicarbonate, Serum23 23 Anion Gap, Serum17 17 BUN90 H 94 HH CREAT2.80 H 2.84 H GFR-Non Fpzeofao15 A 16 A GFR- Fpwahwsm02 A 19 A Calcium, Serum8.6 8.7 Phosphorus, Serum4.7 4.5 ALB2.9 L 2.9 L Lab Comment: CRITICAL BUN CALLED TO KELLY FRIAS--SAUNDRA 2ID, 03/10/2019 09:08 Radiology Results: Results: Impression: 1. Minimal right basilar atelectasis but no active airspace disease. Correlate with coronary artery disease risk factors. Xray Chest 2 View PA + Lateral [Mar 09 2019 10:21AM] Assessment and Plan: Assessment: Acute Renal Failure: suspected lupus nephritis -continue mmf and steroids -follow up lab testing as requested by rheum/renal services. inputs greatly appreciated -obtaining actual path slides for review here. reportedly to come tomorrow from outside hospital -check PET scan tomorrow -F/u renal recommendations. Input greatly appreciated Cardiovascular: -continue amlodipine Endo: -continue synthroid GI: constipation -start miralax and docusate DVT Proph Electronic Signatures: Wilberto Morgan) (Signed 11-Mar-2019 16:39) Authored: Service, Subjective Data, Objective Data, Assessment and Plan, Signature/Cosignature/Atte station Last Updated: 11-Mar-2019 16:39 by Wilberto Morgan) Normal [facility] GLUCOSE-POCTon 03-11-2019 Glucose [Mass/Vol] 156 mg/dL High 74 - 99 [facility] Comment on above: Performed By: #### E SRWS #### [facility] [address] [place] [address] Glucose [Mass/Vol] 88 mg/dL Normal 74 - 99 [facility] Comment on above: Performed By: #### E SRWS #### [facility] [address] [place] [address] Glucose [Mass/Vol] 152 mg/dL High 74 - 99 [facility] Comment on above: Performed By: #### E SRWS #### [facility] [address] [place] [address] RENAL FUNCTION PANELon 03-11 Albumin [Mass/Vol] 2.9 g/dL Low 3.4 - 5.0 [facility] Comment on above: Performed By: #### E SRWS #### [facility] [address] [place] [address] Anion gap [Moles/Vol] 17 mmol/L Normal 10 - 20 [facility] Comment on above: Performed By: #### E SRWS #### [facility] [address] [place] [address] Calcium [Mass/Vol] 8.6 mg/dL Normal 8.6 - 10.6 [facility] Comment on above: Performed By: #### E SRWS #### [facility] [address] [place] [address] Chloride [Moles/Vol] 103 mmol/L Normal 98 - 107 [facility] Comment on above: Performed By: #### E SRWS #### [facility] [address] [place] [address] Creatinine [Mass/Vol] 2.80 mg/dL High 0.50 - 1.05 [facility] Comment on above: Performed By: #### E SRWS #### [facility] [address] [place] [address] GFR- AM. 21 mL/min/1.73m2 Abnormal >60 [facility] Comment on above: Result Comment: CALC ULATIONS OF ESTIMATED GFR ARE PERFORMED USING THE MDRD STUDY EQUATION FOR THE IDMS-TRACEABLE CREATININE METHODS. CLIN CHEM 2007;53:766-72 Performed By: #### E SRWS #### [facility] [address] [place] [address] GFR-NON AM. 17 mL/min/1.73m2 Abnormal >60 [facility] Comment on above: Performed By: #### E SRWS #### [facility] [address] [place] [address] Glucose [Mass/Vol] 134 mg/dL High 74 - 99 [facility] Comment on above: Performed By: #### E SRWS #### [facility] [address] [place] [address] HCO3 (Bld) [Moles/Vol] 23 mmol/L Normal 21 - 32 [facility] Comment on above: Performed By: #### E SRWS #### [facility] [address] [place] [address] Phosphate [Mass/Vol] 4.7 mg/dL Normal 2.5 - 4.9 [facility] Comment on above: Result Comment: The performance characteristics of phosphorus testing in heparinized plasma have been validated by the individual laboratory site where testing is performed. Testing on heparinized plasma is not approved by the FDA; however, such approval is not necessary. Performed By: #### E SRWS #### [facility] [address] [place] [address] Potassium [Moles/Vol] 4.5 mmol/L Normal 3.5 - 5.3 [facility] Comment on above: Performed By: #### E SRWS #### [facility] [address] [place] [address] Sodium [Moles/Vol] 138 mmol/L Normal 136 - 145 [facility] Comment on above: Performed By: #### E SRWS #### [facility] [address] [place] [address] Urea nitrogen [Mass/Vol] 90 mg/dL High 6 - 23 [facility] Comment on above: Performed By: #### E SRWS #### [facility] [address] [place] [id number] T-SPOT TBon 03-11-2019 NIL[NEG]CONTROL SPOT COUNT Passed Normal [facility] Comment on above: Performed By: #### E SRWS #### [facility] [address] [place] [id number] PANEL A SPOT COUNT 2 Normal [facility] Comment on above: Performed By: #### E SRWS #### [facility] [address] [place] [id number] PANEL B SPOT COUNT 0 Normal [facility] Comment on above: Performed By: #### E SRWS #### [facility] [address] [place] [id number] POS CONTROL SPOT COUNT Passed Normal [facility] Comment on above: Performed By: #### E SRWS #### [facility] [address] [place] [address] T-SPOT.TB INTERP Negative Normal Normal Value: Negative [facility] Comment on above: Result Comment: A ne gative test result does not exclude the possibility of exposure to or infection with Mycobacterium tuberculosis (M. tuberculosis). Patients with recent exposure to TB infected individuals exhibiting a negative T-SPOT.TB result should be considered for retesting within 6 weeks or if other relevant clinical symptoms indicate. Results from T-SPOT.TB testing must be used in conjunction with each individual's epidemiological history, current medical status, and results of other diagnostic evaluations. The T-SPOT.TB test is qualitative and results are reported as positive, borderline or negative, given that the test controls perform as expected. In line with the Centers for Disease Control and Prevention's 2010 recommendation to report quantitative measurements alongside the qualitative result, the laboratory provides spot counts for informational purposes only. The T-SPOT.TB test should not be interpreted as a quantitative test. Performed By: #### E SRWS #### [facility] [address] [place] [address] TAMIKA TITER/LUIS PANELon 2018 ANTI-CENTROMERE <0.2 Normal [facility] Comment on above: Result Comment: REF VALUES < 1.0 = NEGATIVE >=1.0 = POSITIVE Performed By: #### P TINR #### [facility] [address] [place] [address] ANTI-CHROMATIN 4.7 AI Abnormal [facility] Comment on above: Result Comment: REF VALUES < 1.0 = NEGATIVE >=1.0 = POSITIVE Performed By: #### P TINR #### [facility] [address] [place] [address] ANTI-DNA [DS] 2.0 IU/mL Normal [facility] Comment on above: Result Comment: REF VALUES NEGATIVE: <= 4 IU/ML EQUIVOCAL: 5- 9 IU/ML POSITIVE: >=10 IU/ML Performed By: #### P TINR #### [facility] [address] [place] [address] ANTI-JAMIA-[address] <[address] [facility] Comment on above: Result Comment: REF VALUES < 1.0 = NEGATIVE >=1.0 = POSITIVE Performed By: #### P TINR #### [facility] [address] [place] [address] ANTI-RIBOSOMAL P <0.2 Normal [facility] Comment on above: Result Comment: REF VALUES < 1.0 = NEGATIVE >=1.0 = POSITIVE Performed By: #### P TINR #### [facility] [address] [place] [address] ANTI-FLOW WORKER >8.[address] [facility] Comment on above: Result Comment: REF VALUES < 1.0 = NEGATIVE >=1.0 = POSITIVE Performed By: #### P TINR #### [facility] [address] [place] [address] ANTI-SCL-70 <0[address] [facility] Comment on above: Result Comment: REF VALUES < 1.0 = NEGATIVE >=1.0 = POSITIVE Performed By: #### P TINR #### [facility] [address] [place] [address] ANTI-SM 1.[address] [facility] Comment on above: Result Comment: REF VALUES < 1.0 = NEGATIVE >=1.0 = POSITIVE Performed By: #### P TINR #### [facility] [address] [place] [address] ANTI-SM/FLOW WORKER >8.[address] [facility] Comment on above: Result Comment: REF VALUES < 1.0 = NEGATIVE >=1.0 = POSITIVE Performed By: #### P TINR #### [facility] [address] [place] [address] ANTI-SSA <0.[address] [facility] Comment on above: Result Comment: REF VALUES < 1.0 = NEGATIVE >=1.0 = POSITIVE Performed By: #### P TINR #### [facility] [address] [place] [address] ANTI-SSB <0.[address] [facility] Comment on above: Result Comment: REF VALUES < 1.0 = NEGATIVE >=1.0 = POSITIVE Performed By: #### P TINR #### [facility] [address] [place] [address] CBC AND DIFFERENTIALon 03-10 % AUTOMATED IMMATURE GRAN 3.0 % High 0.0 - 0.9 [facility] Comment on above: Result Comment: Perc ent differential counts (%) should be interpreted in the context of the absolute cell counts (cells/L). Performed By: #### C BCDF #### [facility] [address] [place] [address] Basophils (Bld) [#/Vol] 0.05 10*3/uL Normal 0.00 - 0.10 [facility] Comment on above: Performed By: #### C BCDF #### [facility] [address] [place] [address] Basophils/100 WBC (Bld) 0.3 % Normal 0.0 - 2.0 [facility] Comment on above: Performed By: #### C BCDF #### [facility] [address] [place] [address] Eosinophils (Bld) [#/Vol] 0.00 10*3/uL Normal 0.00 - 0.70 [facility] Comment on above: Performed By: #### C BCDF #### [facility] [address] [place] [address] Eosinophils/100 WBC (Bld) 0.0 % Normal 0.0 - 6.0 [facility] Comment on above: Performed By: #### C BCDF #### [facility] [address] [place] [address] Erythrocyte distribution width (RBC) [Ratio] 16.4 % High 11.5 - 14.5 [facility] Comment on above: Performed By: #### C BCDF #### [facility] [address] [place] [address] Hematocrit (Bld) [Volume fraction] 27.3 % Low 36.0 - 46.0 [facility] Comment on above: Performed By: #### C BCDF #### [facility] [address] [place] [address] Hemoglobin (Bld) [Mass/Vol] 8.3 g/dL Low 12.0 - 16.0 [facility] Comment on above: Performed By: #### C BCDF #### [facility] [address] [place] [address] Lymphocytes (Bld) [#/Vol] 0.60 10*3/uL Low 1.20 - 4.80 [facility] Comment on above: Performed By: #### C BCDF #### [facility] [address] [place] [address] Lymphocytes/100 WBC (Bld) 4.1 % Normal 13.0 - 44.0 [facility] Comment on above: Performed By: #### C BCDF #### [facility] [address] [place] [address] MCHC (RBC) [Mass/Vol] 30.4 g/dL Low 32.0 - 36.0 [facility] Comment on above: Performed By: #### C BCDF #### [facility] [address] [place] [address] MCV (RBC) [Entitic vol] 100 fL Normal 80 - 100 [facility] Comment on above: Performed By: #### C BCDF #### [facility] [address] [place] [address] Monocytes (Bld) [#/Vol] 0.78 10*3/uL Normal 0.10 - 1.00 [facility] Comment on above: Performed By: #### C BCDF #### [facility] [address] [place] [address] Monocytes/100 WBC (Bld) 5.4 % Normal 2.0 - 10.0 [facility] Comment on above: Performed By: #### C BCDF #### [facility] [address] [place] [address] Neutrophils (Bld) [#/Vol] 12.69 10*3/uL High 1.20 - 7.70 [facility] Comment on above: Performed By: #### C BCDF #### [facility] [address] [place] [address] Neutrophils/100 WBC (Bld) 87.2 % Normal 40.0 - 80.0 [facility] Comment on above: Performed By: #### C BCDF #### [facility] [id number] [place] [address] Nucleated RBC/100 WBC (Bld) [Ratio] 0.0 /100 WBC Normal 0.0-0.0 [facility] Comment on above: Performed By: #### C BCDF #### [facility] [address] [place] [address] Platelets (Bld) [#/Vol] 223 10*3/uL Normal 150 - 450 [facility] Comment on above: Performed By: #### C BCDF #### [facility] [address] [place] [address] RBC (Bld) [#/Vol] 2.73 x10E12/L Low 4.00 - 5.20 [facility] Comment on above: Performed By: #### C BCDF #### [facility] [address] [place] [address] WBC (Bld) [#/Vol] 14.6 10*3/uL High 4.4 - 11.3 [facility] Comment on above: Performed By: #### C BCDF #### [facility] [address] [place] [address] Daily Progress Note-Medicine on 03-10-2019 Daily Progress Note-Medicine Service: Medicine Subjective Data: BHUMIKA WHEATLEY is a 68 year old Female who is Hospital Day # 3. Overnight Events: Patient had an uneventful night. Additional Information: feels well Objective Data: Objective Information: ---- Intake and Output ----- Mn/Dy/Year TimeIntakeOutputNet Mar 10, 2019 6:00 [id number] Mar 09, 2019 10:00 [id number] Mar 09, 2019 2:00 [id number] The Intake and Output Totals for the last 24 hours are: IntakeOutputNet [id number] T PRBPSpO2 [id number]/6997% Date/Time03/10 7: 7: 7: 7: 7:34 Range(36.1C - 37.1C ) (81 - 94 ) (18 - 18 ) (105 - 120 )/ (59 - 69 ) (96% - 99% ) Highest temp of 37.1 C was recorded at 03/09 15:12 Physical Exam: Constitutional: NAD, alert, walking around room, rate within normal limits, rhythm is regular, ctab, bs+ NTND< no lower extremity edema Medication: Medications: ANTI-INFECTIVES: 1. Sulfamethoxazole 800 mg - Trimethoprim 160 m tablet(s) Oral Schedule> CARDIOVASCULAR AGENTS: 1. amLODIPine (NORVASC): 10 mg Oral Daily CENTRAL NERVOUS SYSTEM AGENTS: 1. LORazepam: 0.5 mg Oral Every 8 Hours PRN HORMONES/HORMONE MODIFIERS: 1. predniSONE: 60 mg Oral Every 24 Hours 2. Levothyroxine: 100 microgram(s) Oral Daily IMMUNOLOGIC AGENTS: 1. Mycophenolate Mofetil: 250 mg Oral Every 12 Hours METABOLIC AGENTS: 1. Dextrose 50% in Water Injectable: 12.5 gram(s) IntraVenous Push Every 15 Minutes PRN 2. Dextrose 50% in Water Injectable: 25 gram(s) IntraVenous Push Every 15 Minutes PRN 3. Glucagon Injectable: 1 mg IntraMuscular Every 15 Minutes PRN Recent Lab Results: Results: I have reviewed these laboratory results: Renal Function Panel Trending View [id number] 07:56:00 09-Mar-2019 07:07:00 Lab Comment:CRITICAL BUN CALLED TO KELLY FRIAS--RB 2ID, 03/10/2019 09:08 Glucose, [id number] H 128 H NA139 140 K4.4 4.6 CL103 103 Bicarbonate, Serum23 25 Anion Gap, Serum17 17 BUN94 HH 88 H CREAT2.84 H 2.66 H GFR-Non Pbbenkyk21 A 18 A GFR- Tjgqmxlv63 A 22 A Calcium, Serum8.7 8.7 Phosphorus, Serum4.5 4.4 ALB2.9 L 2.9 L Complete Blood Count + Differential 10-Mar-2019 07:56:00 ResultValue White Blood Cell Count 14.6 H Nucleated Erythrocyte Count 0.0 Red Blood Cell Count 2.73 L HGB 8.3 L HCT 27.3 L MCV 100 MCHC 30.4 L PLT 223 RDW-CV 16.4 H Neutrophil % 87.2 Immature Granulocytes % 3.0 H Lymphocyte % 4.1 Monocyte % 5.4 Eosinophil % 0.0 Basophil % 0.3 Neutrophil Count 12.69 H Lymphocyte Count 0.60 L Monocyte Count 0.78 Eosinophil Count 0.00 Basophil Count 0.05 Glucose_POCT Trending View [id number] 07:40:00 09-Mar-2019 20:41:00 09-Mar-2019 18:14:00 09-Mar-2019 12:04:00 Glucose-[id number] H 263 H 130 H 110 H Complete Blood Count 09-Mar-2019 07:07:00 ResultValue White Blood Cell Count 12.7 H Nucleated Erythrocyte Count 0.0 Red Blood Cell Count 2.80 L HGB 8.6 L HCT 25.9 L MCV 93 MCHC 33.2 PLT 229 RDW-CV 16.1 H Radiology Results: Results: Impression: 1. Minimal right basilar atelectasis but no active airspace disease. Correlate with coronary artery disease risk factors. 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 inputs greatly appreciated -obtaining actual path slides for review here -may check PET scan tuesday in light of her multiple cancers and numerous + abs Cardiovascular: -continue amlodipine Endo: -continue synthroid DVT Proph Electronic Signatures: Wilberto Morgan) (Signed 10-Mar-2019 12:59) Authored: Service, Subjective Data, Objective Data, Assessment and Plan, Signature/Cosignature/Atte station Last Updated: 10-Mar-2019 12:59 by Wilberto Morgan) Normal [facility] GLUCOSE-POCTon 03-10-2019 Glucose [Mass/Vol] 155 mg/dL High 74 - 99 [facility] Comment on above: Performed By: #### E SRWS #### [facility] [address] [place] [address] Glucose [Mass/Vol] 161 mg/dL High 74 - 99 [facility] Comment on above: Performed By: #### E SRWS #### [facility] [address] [place] [address] Glucose [Mass/Vol] 137 mg/dL High 74 - 99 [facility] Comment on above: Performed By: #### C BCDF #### [facility] [address] [place] [address] Nutrition Therapy-Assessment on 03-10-2019 Nutrition Therapy-Assessment Assessment Subjective/Objective: Note Type: Assessment Note Authored by: Registered Dietitian Biochemistry Specialist Pager Number: [phone] Nutrition Note: Consult received via nursing admit screen per patient reported eating poorly and weight loss. Ms. 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 HTN Objective Information: Intake Output Enteral - Oral 1200 mL Urine 950 mL Height/Weight: Height in inches: 63 inch(es) Height in cm: 160 centimeter(s) Weight (kg): 51.5 BMI (kg/m2): 20.117 square meter DBW (kg): 52.3 %DBW: 98 Weight history/ % weight change: 03/09/19) 51.5kg Patient reports ~25# weight loss over past few months. Significant Weight Change: yes Recent Lab Results: Results: I have reviewed these laboratory results: Renal Function Panel 10-Mar-2019 07:56:00 ResultValue Lab Comment: CRITICAL BUN CALLED TO KELLY FRIAS--RB 2ID, 03/10/2019 09:08 Glucose, Serum 129 H NA 139 K 4.4 CL 103 Bicarbonate, Serum 23 Anion Gap, Serum 17 BUN 94 HH CREAT 2.84 H GFR-Non 16 A GFR- 19 A Calcium, Serum 8.7 Phosphorus, Serum 4.5 ALB 2.9 L Complete Blood Count + Differential 10-Mar-2019 07:56:00 ResultValue White Blood Cell Count 14.6 H Nucleated Erythrocyte Count 0.0 Red Blood Cell Count 2.73 L HGB 8.3 L HCT 27.3 L MCV 100 MCHC 30.4 L PLT 223 RDW-CV 16.4 H Neutrophil % 87.2 Immature Granulocytes % 3.0 H Lymphocyte % 4.1 Monocyte % 5.4 Eosinophil % 0.0 Basophil % 0.3 Neutrophil Count 12.69 H Lymphocyte Count 0.60 L Monocyte Count 0.78 Eosinophil Count 0.00 Basophil Count 0.05 Glucose_POCT Trending View [id number] 07:40:00 09-Mar-2019 20:41:00 09-Mar-2019 18:14:00 09-Mar-2019 12:04:00 Glucose-[id number] H 263 H 130 H 110 H Current Active Medications/PN: Levothyroxine, Tablet (SYNTHROID) DOSE = 100 microgram(s) Oral Daily, 08-Mar-2019 predniSONE, Tablet (DELTASONE, ORASONE) DOSE = 60 mg Oral Every 24 Hours, 08-Mar-2019 amLODIPine (NORVASC), Tablet DOSE = 10 mg Oral Daily, 08-Mar-2019 Sulfamethoxazole 800 mg - Trimethoprim 160 mg, Tablet (BACTRIM DS, SEPTRA DS) DOSE = 1 tablet(s) Oral ( every 1 week: Mon/09:00, 09:00, 09:00 ), 08-Mar-2019 LORazepam, Tablet (ATIVAN) DOSE = 0.5 mg Oral Every 8 Hours, PRN Anxiety, 08-Mar-2019 Mycophenolate Mofetil, Capsule (CELLCEPT) DOSE = 250 mg Oral Every 12 Hours Ca.8544 mg/Kg/DOSE x 51.5 Kg = 250 mg/Dose (Daily Total is 500 mg), 09-Mar-2019 Nutrition Orders: Diet, Renal, Low Phosphorus, Sodium: 2 grams Sodium Protein: 70 grams Protein, Potassium: 70 mEq of Potassium, 08-Mar-2019 May Participate in Room Service, Yes Order entered from Admission Screens., 08-Mar-2019 Food/Nutrition Related History: Change in Oral Intake/Appetite: decrease GI Symptoms: anorexia Time Frame for GI Symptoms Greater Than 2 Weeks: yes Oral Problems: denies Mobility: more tired/decreased energy more recently prior to hospital admit Food Allergies Comment: NKFA Nutritional Supplements: Patient took Centrum Silver for a period of time but then ran out and hadn't purchased again Food/Nutrition Related History: Patient lying in bed upon visit talking with at bedside and hospital roommate. Patient reports decline in intake over past few months with weight loss as above. She generally doesn't eat breakfast however sometimes would have toast with jelly or oatmeal. She otherwise ate a regular diet when feeling well and thereafter but overall less compared to baseline. Feeling better overall now and eating meals. Renal diet restricts many of the foods she likes. Patient was able to get more of the foods she wanted at lunch so she was pleased about that. Interested in diet education for home going. Nutrition Focused Physical Findings: Muscle Wasting: Temporal: no Shoulder: yes Clavicle: yes Scapula/Back: defer Interosseous: yes Quadriceps: no Calf: no Muscle Comment: petite female, noted muscle loss in arms compared to baseline and generalized upper extremity mild/mod muscle loss but overall adequate stores Loss of Subcutaneous Fat: Eyes: no Perioral: no Triceps: yes Chest: yes Other Physical Findings: Hair: patient noted hair loss Eyes: negative Mouth: negative Nails: pale Skin: bruising Edema: none Change in Metabolic Demand: yes Subjective Global Assessment Rating: moderate malnutrition Etiology: chronic illness Estimated Needs: kcals/day: 2469-2981 gms protein/day: 65 mL fluid/day: per MD Nutrition Diagnosis: Diagnosis1 new. Dx: Moderate protein calorie malnutrition. related to chronic illness (suspected lupus nephritis) as evidenced by poor appetite/inadequate intake, ~25# unintended weight loss over past 3 months with decline in muscle mass compared to baseline. Additional Assessment Information: Appetite and intake improving. Expect daily improvement in nutritional status. Nutrition Interventions: Individualized Nutrition Prescription Provided for: diet, vitamins, minerals, fluids Diet Education Provided: Low potassium, low phosphorus, low sodium diet guidelines discussed for patient to follow until diet can be liberalized based on medical condition. Also discussed general healthful nutrition and maintaining lower sodium diet more alf. Resource: Academy of nutrition and dietetics nutrition care manual. Handouts provided: Potassium/Phosphorus contents of foods, General healthful nutrition, low sodium and low sodium flavoring tips. Nutrition Goals: Goals: Nutrition Therapy: oral intake greater than 50%, Blood Glucose 80-180 mg/dl, electrolytes within normal limits, maintain stable weight Outcomes Summary: Nutrition Therapy Outcome Summary: Nutritional Therapy: Moderate malnutrition NUTRITION RECOMMENDATIONS: Recommendations: 1) Liberalize diet as indicated to Regular. 2) Daily MVI with minerals 3 x week. Consider iron studies to identify if additional supplement is indicated. Diet Education: Nutrition Education: Low potassium, low phosphorus, low sodium diet guidelines discussed for patient to follow until diet can be liberalized based on medical condition. Also discussed general healthful nutrition and maintaining lower sodium diet more alf. Resource: Academy of nutrition and dietetics nutrition care manual. Handouts provided: Potassium/Phosphorus contents of foods, General healthful nutrition, low sodium and low sodium flavoring tips. Education Provided to: patient, family Understanding of Diet: good, patient/family voice understanding Anticipated Compliance: good Follow up: provided information on outpatient nutrition therapy service Time Spent (minutes): 60 Nutrition Support: no Electronic Signatures: Belkis Handy (MARII, DOUG) (Signed 10-Mar-2019 14:51) Authored: Assessment Subjective/Objective, Nutrition Focused Physical Findings, Estimated Needs, Nutrition Diagnosis, Nutrition Interventions, Nutrition Goals, Nutrition Recommendations, Diet Education, Time Spent/Nutrition Support Last Updated: 10-Mar-2019 14:51 by Belkis Handy (MARII, DOUG) Normal [facility] RENAL FUNCTION PANELon 03-10 Albumin [Mass/Vol] 2.9 g/dL Low 3.4 - 5.0 [facility] Comment on above: Order Comment: CRITI BO BUN CALLED TO KELLY FRIAS--RB 2ID, 03/10/2019 09:08 Performed By: #### C BCDF #### [facility] [address] [place] [address] Anion gap [Moles/Vol] 17 mmol/L Normal 10 - 20 [facility] Comment on above: Order Comment: CRITI BO BUN CALLED TO KELLY FRIAS--RB 2ID, 03/10/2019 09:08 Performed By: #### C BCDF #### [facility] [address] [place] [address] Calcium [Mass/Vol] 8.7 mg/dL Normal 8.6 - 10.6 [facility] Comment on above: Order Comment: CRITI BO BUN CALLED TO KELLY FRIAS--RB 2ID, 03/10/2019 09:08 Performed By: #### C BCDF #### [facility] [address] [place] [address] Chloride [Moles/Vol] 103 mmol/L Normal 98 - 107 [facility] Comment on above: Order Comment: CRITI BO BUN CALLED TO KELLY FRIAS--RB 2ID, 03/10/2019 09:08 Performed By: #### C BCDF #### [facility] [address] [place] [address] Creatinine [Mass/Vol] 2.84 mg/dL High 0.50 - 1.05 [facility] Comment on above: Order Comment: CRITI BO BUN CALLED TO KELLY FRIAS--RB 2ID, 03/10/2019 09:08 Performed By: #### C BCDF #### [facility] [address] [place] [address] GFR- AM. 19 mL/min/1.73m2 Abnormal >60 [facility] Comment on above: Order Comment: CRITI BO BUN CALLED TO KELLY FRIAS--RB 2ID, 03/10/2019 09:08 Result Comment: CALC ULATIONS OF ESTIMATED GFR ARE PERFORMED USING THE MDRD STUDY EQUATION FOR THE IDMS-TRACEABLE CREATININE METHODS. CLIN CHEM 2007;53:766-72 Performed By: #### C BCDF #### [facility] [address] [place] [address] GFR-NON AM. 16 mL/min/1.73m2 Abnormal >60 [facility] Comment on above: Order Comment: CRITI BO BUN CALLED TO KELLY ALTAGRACIA--RB 2ID, 03/10/2019 09:08 Performed By: #### C BCDF #### [facility] [address] [place] [address] Glucose [Mass/Vol] 129 mg/dL High 74 - 99 [facility] Comment on above: Order Comment: YANY BO BUN CALLED TO KELLY ALTAGRACIA--RB 2ID, 03/10/2019 09:08 Performed By: #### C BCDF #### [facility] [address] [place] [address] HCO3 (Bld) [Moles/Vol] 23 mmol/L Normal 21 - 32 [facility] Comment on above: Order Comment: YANY BO BUN CALLED TO KELLY FRIAS--RB 2ID, 03/10/2019 09:08 Performed By: #### C BCDF #### [facility] [address] [place] [address] Phosphate [Mass/Vol] 4.5 mg/dL Normal 2.5 - 4.9 [facility] Comment on above: Order Comment: YANY BO BUN CALLED TO KELLY FRIAS--RB 2ID, 03/10/2019 09:08 Result Comment: The performance characteristics of phosphorus testing in heparinized plasma have been validated by the individual laboratory site where testing is performed. Testing on heparinized plasma is not approved by the FDA; however, such approval is not necessary. Performed By: #### C BCDF #### [facility] [address] [place] [address] Potassium [Moles/Vol] 4.4 mmol/L Normal 3.5 - 5.3 [facility] Comment on above: Order Comment: CRIZACH BO BUN CALLED TO KELLY FRIAS--RB 2ID, 03/10/2019 09:08 Performed By: #### C BCDF #### [facility] [address] [place] [address] Sodium [Moles/Vol] 139 mmol/L Normal 136 - 145 [facility] Comment on above: Order Comment: CRITI BO BUN CALLED TO KELLY ALTAGRACIA--RB 2ID, 03/10/2019 09:08 Performed By: #### C BCDF #### [facility] [address] [place] [address] Urea nitrogen [Mass/Vol] 94 mg/dL Critically high 6 - 23 [facility] Comment on above: Order Comment: CRITI BO BUN CALLED TO KELLY FRIAS--RB 2ID, 03/10/2019 09:08 Result Comment: CRIT ICAL BUN CALLED TO KELLY FRIAS--RB 2ID, 03/10/2019 09:08 Performed By: #### C BCDF #### [facility] [address] [place] [address] TAMIKA WITH REFLEX TO ENAon TAMIKA WITH REFLEX TO LUIS Positive Abnormal NEGATIVE [facility] Comment on above: Performed By: #### P TINR #### [facility] [address] [place] [address] ANTI-DNA [DS]on 03-09-2019 ANTI-DNA [DS] 2.0 IU/mL Normal [facility] Comment on above: Result Comment: REF VALUES NEGATIVE: <= 4 IU/ML EQUIVOCAL: 5- 9 IU/ML POSITIVE: >=10 IU/ML Performed By: #### D NADS ####[id number] [place] [address] C3 COMPLEMENTon 03-09-2019 C3 COMPLEMENT 68 mg/dL Low 87 - 200 [facility] Comment on above: Performed By: #### C 3 ####[id number] [place] [address] C4 COMPLEMENTon 03-09-2019 C4 COMPLEMENT <8 Abnormal 10 - 50 [facility] Comment on above: Performed By: #### C 4 ####[id number] [place] [address] CBCon 03-09-2019 Erythrocyte distribution width (RBC) [Ratio] 16.1 % High 11.5 - 14.5 [facility] Comment on above: Performed By: #### C BC ####[id number] [place] [address] Hematocrit (Bld) [Volume fraction] 25.9 % Low 36.0 - 46.0 [facility] Comment on above: Performed By: #### C BC ####[id number] [place] [address] Hemoglobin (Bld) [Mass/Vol] 8.6 g/dL Low 12.0 - 16.0 [facility] Comment on above: Performed By: #### C BC ####[id number] [place] [address] MCHC (RBC) [Mass/Vol] 33.2 g/dL Normal 32.0 - 36.0 [facility] Comment on above: Performed By: #### C BC ####[id number] [place] [address] MCV (RBC) [Entitic vol] 93 fL Normal 80 - 100 [facility] Comment on above: Performed By: #### C BC ####[id number] [place] [address] Nucleated RBC/100 WBC (Bld) [Ratio] 0.0 /100 WBC Normal 0.0-0.0 [facility] Comment on above: Performed By: #### C BC ####[id number] [place] [address] Platelets (Bld) [#/Vol] 229 10*3/uL Normal 150 - 450 [facility] Comment on above: Performed By: #### C BC ####[id number] [place] [address] RBC (Bld) [#/Vol] 2.80 x10E12/L Low 4.00 - 5.20 [facility] Comment on above: Performed By: #### C BC ####[id number] [place] [address] WBC (Bld) [#/Vol] 12.7 10*3/uL High 4.4 - 11.3 [facility] Comment on above: Performed By: #### C BC ####[id number] [place] [address] Daily Progress Note-Medicine on 03-09-2019 Daily Progress Note-Medicine Service: Medicine Subjective Data: BHUMIKA WHEATLEY is a 68 year old Female who is Hospital Day # 2. Additional Information: No overnight events. Received primary data - more suggestive of lupus nephritis. Added mycophenolate 250mg BID per renal/rheum recs for treatment of lupus nephritis Renal to follow regarding dispo Objective Data: Objective Information: ---- Intake and Output ----- Mn/Dy/Year TimeIntakeOutputNet Mar 09, 2019 2:00 [id number] Mar 09, 2019 6:00 [id number] Mar 08, 2019 10:00 [id number] The Intake and Output Totals for the last 24 hours are: IntakeOutputNet [id number] Physical Exam: Constitutional: Well developed, awake/alert/oriented x3, no distress, alert and cooperative Eyes: PERRL, EOMI, clear sclera ENMT: mucous membranes moist, no apparent injury, no lesions seen Head/Neck: Neck supple, no apparent injury, No JVD, trachea midline, no bruits Respiratory/Thorax: Patent airways, CTAB, normal breath sounds with good chest expansion, thorax symmetric Cardiovascular: Regular, rate and rhythm, no murmurs, 2+ equal pulses of the extremities, normal S 1and S 2 Gastrointestinal: Nondistended, soft, non-tender, no rebound tenderness or guarding, no masses palpable, no organomegaly, +BS, no bruits Musculoskeletal: ROM intact, no joint swelling, normal strength Extremities: normal extremities, no cyanosis edema, contusions or wounds, no clubbing Neurological: alert and oriented x3, intact senses, motor, response and reflexes, normal strength Psychological: Appropriate mood and behavior Skin: Warm and dry, no lesions, no rashes Medication: Medications: Continuous Medications ------ No continuous medications are active Scheduled Medications ------ 1. amLODIPine (NORVASC): 10 mg Oral Daily 2. Levothyroxine: 100 microgram(s) Oral Daily 3. Mycophenolate Mofetil: 250 mg Oral Every 12 Hours 4. Pneumococcal 13-Valent (PREVNAR 13) Vaccine: 0.5 mL IntraMuscular Once 5. predniSONE: 60 mg Oral Every 24 Hours 6. Sulfamethoxazole 800 mg - Trimethoprim 160 m tablet(s) Oral Schedule> PRN Medications ------ 1. Dextrose 50% in Water Injectable: 25 gram(s) IntraVenous Push Every 15 Minutes 2. Dextrose 50% in Water Injectable: 12.5 gram(s) IntraVenous Push Every 15 Minutes 3. Glucagon Injectable: 1 mg IntraMuscular Every 15 Minutes 4. LORazepam: 0.5 mg Oral Every 8 Hours Recent Lab Results: Results: I have reviewed these laboratory results: Complete Blood Count 09-Mar-2019 07:07:00 ResultValue White Blood Cell Count 12.7 H Nucleated Erythrocyte Count 0.0 Red Blood Cell Count 2.80 L HGB 8.6 L HCT 25.9 L MCV 93 MCHC 33.2 PLT 229 RDW-CV 16.1 H Renal Function Panel 09-Mar-2019 07:07:00 ResultValue Glucose, Serum 128 H NA 140 K 4.6 CL 103 Bicarbonate, Serum 25 Anion Gap, Serum 17 BUN 88 H CREAT 2.66 H GFR-Non 18 A GFR- 22 A Calcium, Serum 8.7 Phosphorus, Serum 4.4 ALB 2.9 L Hepatitis B Core Antibody, Total 09-Mar-2019 07:07:00 ResultValue Hep. B Core Antibody Total NONREACTIVE Reference Range: NONREACTIVE Patients receiving more than 5 mg/day of biotin may have interference in test results. A sample should be taken no sooner than eight hours after previous dose. Contact the testing laboratory for additi Hepatitis B Surface Antibody 09-Mar-2019 07:07:00 ResultValue Hepatitis B Surface, Antibody < 3.1 Hepatitis B Surface Antigen 09-Mar-2019 07:07:00 ResultValue Hep.B Surface Ag NONREACTIVE Reference Range: NONREACTIVE Patients receiving more than 5 mg/day of biotin may have interference in test results. A sample should be taken no sooner than eight hours after previous dose. Contact the testing laboratory for additi Hepatitis C Antibody Test 09-Mar-2019 07:07:00 ResultValue Hepatitis C-Antibody NON-REACTIVE Reference Range: NONREACTIVE Patients receiving more than 5 mg/day of biotin may have interference in test results. A sample should be taken no sooner than eight hours after previous dose. Contact the testing laboratory for addit HIV Antigen/Antibody Screen 09-Mar-2019 07:07:00 ResultValue HIV Ag/Ab Screen NON REACTIVE Reference Range: NONREACTIVE HIV Ag/Ab screen is performed using the Siemens Advia Centaur HIV Ag/Ab Combo assay which detects the presence of HIV p24 antigen as well as antibodies to HIV-1 (Group M and O) and HIV-2. Anti-dsDNA (Double Stranded) Antibodies 09-Mar-2019 07:07:00 ResultValue Anti-dsDNA (Double Stranded) Antibodies 2.0 C3 Complement, Serum 09-Mar-2019 07:07:00 ResultValue C3 Complement, Serum 68 L C4 Complement, Serum 09-Mar-2019 07:07:00 ResultValue C4 Complement, Serum <8 A TSH with Reflex to Free T4 if Abnormal 08-Mar-2019 19:41:00 ResultValue Thyroid Stimulating Hormone, Serum 0.15 L Assessment and Plan: Assessment: Ms. 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 Nephritis v ANCA vasculitis (or concurrent) SLE nephritis: low C3, C4, +TAMIKA, +anti-SM, +anti-FLOW WORKER, +anti-chromatin ANCA: +ANCA (low positive), +PR3 (low positive) - less likely - Prophylaxis: Bactrim, PV13 Vaccine - Autoimmune labs (ANCA reflex to MPO, PR3, TAMIKA reflex LUIS) - Transfer of medical records regarding labs from [facility] - CBC - CXR (evaluation for c-ANCA disease) 03/08 - unremarkable - Renal and Rheumatology on board - Prednisone 60 mg/daily, Mycophenolate 250mg BID - Evaluation for plasmapheresis (no need at this time per renal) Chronic issues: Hypothyroid - Home dose levo HTN - Amlodipine 10mg daily Signature/Cosignature/Atte station: Note Completion: Medical Student Cody, or a resident under my supervision, was present with the medical student who participated in the documentation of this note. I have personally seen and examined the patient and performed the medical decision-making components. I have reviewed the medical student documentation and/or resident documentation and verified the findings in the note as written with additions or exceptions as stated in the body of this note. I personally evaluated the patient [id number] Comments/ Additional Findings Ms. 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 Appreciate renal and rheumatology recommendations Will work to get more complete records from transferring facility. Based on further review of data we are receiving from OSH, pathology more consistent with lupus nephritis. Will treat with MMF and prednisone for the time being while we obtain pathology slides for review here at . We will review utility of rituximab in this setting. Electronic Signatures: Romero Montilla ([email or web address]) (Signed 09-Mar-2019 16:31) Authored: Service, Assessment/Plan Review, Subjective Data, Objective Data, Assessment and Plan, Signature/Cosignature/Atte station Kaleb Duenas) (Signed 09-Mar-2019 21:30) Authored: Signature/Cosignature/Atte station Co-Signer: Assessment/Plan Review, Subjective Data, Objective Data, Assessment and Plan, Signature/Cosignature/Atte station Last Updated: 09-Mar-2019 21:30 by Kaleb Duenas) Normal [facility] Daily Progress Note-Renalon 03-09-2019 Daily Progress Note-Renal Service: Renal Subjective Data: BHUMIKA WHEATLEY is a 68 year old Female who is Hospital Day # 2. No acute overnight events, patient resting in room. Has no current symptoms besides decreased appetite, which she contributes to the renal diet. Objective Data: Objective Information: T PRBPSpO2 [id number]/6992% Date/Time03/09 7:4803/09 7: 7: 7: 7:48 Range(36C - 36.8C ) (81 - 100 ) (18 - 18 ) (117 - 134 )/ (67 - 71 ) (92% - 100% ) Pain reported at 03/09 0:08: 0 = None Weights 03/09 5:40: Weight in kg (Weight (kg)) 51.5 03/09 5:40: Weight in lbs ((lbs)) 113.5 03/08 13:22: BMI (kg/m2) (BMI (kg/m2)) 20.546 ---- Intake and Output ----- Mn/Dy/Year TimeIntakeOutputNet Mar 09, 2019 6:00 [id number] Mar 08, 2019 10:00 [id number] The Intake and Output Totals for the last 24 hours are: IntakeOutputNet [id number] Physical Exam: Constitutional: Well developed, awake/alert/oriented x3, no distress, alert and cooperative Eyes: PERRL, EOMI, clear sclera ENMT: mucous membranes moist, no apparent injury, no lesions seen Head/Neck: Neck supple, no apparent injury, No JVD, trachea midline, no bruits Respiratory/Thorax: Patent airways, CTAB, normal breath sounds with good chest expansion, thorax symmetric Cardiovascular: Regular, rate and rhythm, no murmurs, 2+ equal pulses of the extremities, normal S 1and S 2 Gastrointestinal: Nondistended, soft, non-tender, no rebound tenderness or guarding, no masses palpable, no organomegaly, +BS, no bruits Musculoskeletal: ROM intact, no joint swelling, normal strength Extremities: normal extremities, no cyanosis edema, contusions or wounds, no clubbing Neurological: alert and oriented x3, intact senses, motor, response and reflexes, normal strength Psychological: Appropriate mood and behavior Skin: Warm and dry, no lesions, no rashes Medication: Medications: Continuous Medications ------ No continuous medications are active Scheduled Medications ------ 1. amLODIPine (NORVASC): 10 mg Oral Daily 2. Levothyroxine: 100 microgram(s) Oral Daily 3. Pneumococcal 13-Valent (PREVNAR 13) Vaccine: 0.5 mL IntraMuscular Once 4. predniSONE: 60 mg Oral Every 24 Hours 5. Sulfamethoxazole 800 mg - Trimethoprim 160 m tablet(s) Oral Schedule> PRN Medications ------ 1. Dextrose 50% in Water Injectable: 25 gram(s) IntraVenous Push Every 15 Minutes 2. Dextrose 50% in Water Injectable: 12.5 gram(s) IntraVenous Push Every 15 Minutes 3. Glucagon Injectable: 1 mg IntraMuscular Every 15 Minutes 4. LORazepam: 0.5 mg Oral Every 8 Hours Recent Lab Results: Results: I have reviewed these laboratory results: Complete Blood Count 09-Mar-2019 07:07:00 ResultValue White Blood Cell Count 12.7 H Nucleated Erythrocyte Count 0.0 Red Blood Cell Count 2.80 L HGB 8.6 L HCT 25.9 L MCV 93 MCHC 33.2 PLT 229 RDW-CV 16.1 H Renal Function Panel 09-Mar-2019 07:07:00 ResultValue Glucose, Serum 128 H NA 140 K 4.6 CL 103 Bicarbonate, Serum 25 Anion Gap, Serum 17 BUN 88 H CREAT 2.66 H GFR-Non 18 A GFR- 22 A Calcium, Serum 8.7 Phosphorus, Serum 4.4 ALB 2.9 L Hepatitis B Surface Antibody 09-Mar-2019 07:07:00 ResultValue Hepatitis B Surface, Antibody < 3.1 Hepatitis B Surface Antigen 09-Mar-2019 07:07:00 ResultValue Hep.B Surface Ag NONREACTIVE Reference Range: NONREACTIVE Patients receiving more than 5 mg/day of biotin may have interference in test results. A sample should be taken no sooner than eight hours after previous dose. Contact the testing laboratory for additi C3 Complement, Serum 09-Mar-2019 07:07:00 ResultValue C3 Complement, Serum 68 L TSH with Reflex to Free T4 if Abnormal 08-Mar-2019 19:41:00 ResultValue Thyroid Stimulating Hormone, Serum 0.15 L Free Thyroxine, Serum 08-Mar-2019 19:41:00 ResultValue Free Thyroxine, Serum 1.85 H Urinalysis 08-Mar-2019 17:46:00 ResultValue Color, Urine YELLOW Reference Range: STRAW,YELLOW Appearance, Urine HAZY Specific Camino, Urine 1.008 pH, Urine 5.0 Protein, Urine 100 (2+) A Glucose, Urine >=500 (3+) A Blood, Urine LARGE (3+) A Ketones, Urine NEGATIVE Bilirubin, Urine NEGATIVE Urobilinogen, Urine <2.0 Nitrite, Urine NEGATIVE Leukocyte Esterase, Urine NEGATIVE Urinalysis, Microscopic 08-Mar-2019 17:46:00 ResultValue White Cells 10 A Red Blood Cells 56 A Epithelial Cells, Squamous 1 Bacteria, Urine 1+ A Sodium, Urine Spot 08-Mar-2019 17:46:00 ResultValue Sodium Urine Spot 33 Sodium/Creat Ratio 68 Creatinine, Urine Spot 48.8 Assessment and Plan: Assessment: Bhumika Wheatley is a 68yo F with 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 She also had low C3 and C4 suggesting active phase of SLE with recent lab results indicating +TAMIKA, +anti-SM, +anti-FLOW WORKER, and +anti-chromatin. 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 She was admitted to [facility] for evaluation for plasmapheresis 1. ANCA vasculitis, GPA type 2. SLE 3. hypothyroidism 4. hx IDC stage 1 s/p radiation Recommendations: Though she originally did have a rapidly progressive glomerulonephritis with Cr peak at 4.17 on 03/03, her Cr has downtrended to 2.66 today. She has received pulse methylpred for 3 days starting 03/01 and now continues on PO prednisone 60mg and cyclophosphamide 50mg PO BID (2mg/kg/day). Given downtrend, there is no urgent need for plasmapheresis at this time. We will continue to monitor Cr and symptoms. There are also no urgent indications for hemodialysis at this time including volume overload, uremia, or hyperkalemia. After review of the biopsy, it seems like more SLE nephritis. Will need workup of ANCA again to see if still could be concomitant vasculitis. - continue prednisone 60mg daily - start mycophenolate 250mg BID - please obtain tissue blocks and slides of the kidney [facility] to be read by pathology at [facility] - recommend chest CT to further assess for disease - biopsy is consistent with SLE: please repeat ANCA with reflex MPO and PR3 here with titers to determine if this is truly both diseases - pending suggested studies per rheumatology as well - can continue amlodipine 10mg daily for BP control, but keep systolic BP > 110 for adequate renal perfusion. Consider decreasing dose if BPs fall below 110 systolic. - no need for urgent HD at this time - no need for plasmapheresis at this time - renal diet - strict I&Os - avoid nephrotoxics, NSAIDs, IV contrast (allergic), and hypotension when possible - daily RFPs for Cr trend - rest per primary Evelyn Oviedo PGY-1 Internal Medicine Renal Consults Pager [phone], doc halo Signature/Cosignature/Atte station: Note Completion: Attending AttestationI saw and evaluated the patient. I personally obtained the silva and critical portions of the history and physical exam or was physically present for silva and critical portions performed by the resident/fellow. I reviewed the resident/fellows documentation and discussed the patient with the resident/fellow. I agree with the resident/fellows medical decision making as documented in the note. I personally evaluated the patient [id number] Electronic Signatures: Osmin Ann) (Signed 10-Mar-2019 10:47) Authored: Signature/Cosignature/Atte station Co-Signer: Service, Subjective Data, Objective Data, Assessment and Plan, Signature/Cosignature/Atte station Evelyn Oviedo (Resident)) (Signed 09-Mar-2019 12:24) Authored: Service, Subjective Data, Objective Data, Assessment and Plan, Signature/Cosignature/Atte station Last Updated: 10-Mar-2019 10:47 by Osmin Ann) Normal [facility] Daily Progress Note-Rheumato logyon 03-09-2019 Daily Progress Note-Rheumatology Service: Rheumatology Subjective Data: BHUMIKA WHEATLEY is a 68 year old Female who is Hospital Day # 2. No issues overnight. Objective Data: Objective Information: ---- Intake and Output ----- Mn/Dy/Year TimeIntakeOutputNet Mar 09, 2019 6:00 [id number] Mar 08, 2019 10:00 [id number] The Intake and Output Totals for the last 24 hours are: IntakeOutputNet [id number] T PRBPSpO2 [id number]/6992% Date/Time03/09 7: 7: 7: 7: 7:48 Range(36C - 36.8C ) (81 - 100 ) (18 - 18 ) (117 - 134 )/ (67 - 71 ) (92% - 100% ) General - NAD Cardiovascular - RRR no m/r/g. Lungs - Clear to auscultation, no use of accessory muscles, no crackles or wheezes. Abdomen - Normal bowel sounds, abdomen soft and nontender. Extremities - No edema, cyanosis or clubbing Musculoskeletal - Upper extremities: 5/5 in strength in bilateral distal and proximal extremities. Shoulders: No joint effusion or warmth or pain on palpation, full ROM Hands: No joint effusion or warmth or pain on palpation, full ROM. Able to fully make a fist bilaterally. No pitting or spooning of the nails bilaterally. Wrists: No joint effusion or warmth or pain on palpation, full ROM. Elbows: No joint effusion or warmth or pain on palpation, full ROM Spine: No SI joint pain. Lower extremities: 5/5 strength in distal and proximal extremities. good symmetric distal pulses, no peripheral edema, no clubbing/cyanosis. Knees: No joint effusion or warmth or pain on palpation, full ROM. Feet: No ankle joint effusion or warmth on palpation, full ROM, no pain with MTP squeeze Neurological - Alert and oriented x 3, NFD Medication: Medications: Continuous Medications ------ No continuous medications are active Scheduled Medications ------ 1. amLODIPine (NORVASC): 10 mg Oral Daily 2. Levothyroxine: 100 microgram(s) Oral Daily 3. Pneumococcal 13-Valent (PREVNAR 13) Vaccine: 0.5 mL IntraMuscular Once 4. predniSONE: 60 mg Oral Every 24 Hours 5. Sulfamethoxazole 800 mg - Trimethoprim 160 m tablet(s) Oral Schedule> PRN Medications ------ 1. Dextrose 50% in Water Injectable: 25 gram(s) IntraVenous Push Every 15 Minutes 2. Dextrose 50% in Water Injectable: 12.5 gram(s) IntraVenous Push Every 15 Minutes 3. Glucagon Injectable: 1 mg IntraMuscular Every 15 Minutes 4. LORazepam: 0.5 mg Oral Every 8 Hours Recent Lab Results: Results: I have reviewed these laboratory results: Complete Blood Count 09-Mar-2019 07:07:00 ResultValue White Blood Cell Count 12.7 H Nucleated Erythrocyte Count 0.0 Red Blood Cell Count 2.80 L HGB 8.6 L HCT 25.9 L MCV 93 MCHC 33.2 PLT 229 RDW-CV 16.1 H Renal Function Panel 09-Mar-2019 07:07:00 ResultValue Glucose, Serum 128 H NA 140 K 4.6 CL 103 Bicarbonate, Serum 25 Anion Gap, Serum 17 BUN 88 H CREAT 2.66 H GFR-Non 18 A GFR- 22 A Calcium, Serum 8.7 Phosphorus, Serum 4.4 ALB 2.9 L Hepatitis B Surface Antibody 09-Mar-2019 07:07:00 ResultValue Hepatitis B Surface, Antibody < 3.1 Hepatitis B Surface Antigen 09-Mar-2019 07:07:00 ResultValue Hep.B Surface Ag NONREACTIVE Reference Range: NONREACTIVE Patients receiving more than 5 mg/day of biotin may have interference in test results. A sample should be taken no sooner than eight hours after previous dose. Contact the testing laboratory for additi C3 Complement, Serum 09-Mar-2019 07:07:00 ResultValue C3 Complement, Serum 68 L C4 Complement, Serum 09-Mar-2019 07:07:00 ResultValue C4 Complement, Serum <8 A TSH with Reflex to Free T4 if Abnormal 08-Mar-2019 19:41:00 ResultValue Thyroid Stimulating Hormone, Serum 0.15 L Free Thyroxine, Serum 08-Mar-2019 19:41:00 ResultValue Free Thyroxine, Serum 1.85 H Urinalysis 08-Mar-2019 17:46:00 ResultValue Color, Urine YELLOW Reference Range: STRAW,YELLOW Appearance, Urine HAZY Specific Camino, Urine 1.008 pH, Urine 5.0 Protein, Urine 100 (2+) A Glucose, Urine >=500 (3+) A Blood, Urine LARGE (3+) A Ketones, Urine NEGATIVE Bilirubin, Urine NEGATIVE Urobilinogen, Urine <2.0 Nitrite, Urine NEGATIVE Leukocyte Esterase, Urine NEGATIVE Urinalysis, Microscopic 08-Mar-2019 17:46:00 ResultValue White Cells 10 A Red Blood Cells 56 A Epithelial Cells, Squamous 1 Bacteria, Urine 1+ A Complete Blood Count + Differential 08-Mar-2019 13:00:00 ResultValue White Blood Cell Count 16.1 H Nucleated Erythrocyte Count 0.0 Red Blood Cell Count 3.05 L HGB 9.3 L HCT 28.3 L MCV 93 MCHC 32.9 PLT 256 RDW-CV 16.1 H Neutrophil % 85.5 Immature Granulocytes % 3.7 H Lymphocyte % 3.0 Monocyte % 7.5 Eosinophil % 0.0 Basophil % 0.3 Neutrophil Count 13.74 H Lymphocyte Count 0.49 L Monocyte Count 1.21 H Eosinophil Count 0.00 Basophil Count 0.05 Comprehensive Metabolic Panel 08-Mar-2019 13:00:00 ResultValue Glucose, Serum 116 H NA 140 K 4.0 CL 102 Bicarbonate, Serum 26 Anion Gap, Serum 16 BUN 87 H CREAT 2.68 H GFR-Non 18 A GFR- 22 A Calcium, Serum 8.9 ALB 3.2 L ALKP 46 T Pro 6.4 T Bili 0.7 Alanine Aminotransferase, Serum 15 Aspartate Transaminase, Serum 11 PT + INR, Plasma 08-Mar-2019 13:00:00 ResultValue Prothrombin Time, Plasma 10.9 International Normalized Ratio, Plasma 1.0 Sedimentation Rate, Erythrocyte 08-Mar-2019 13:00:00 ResultValue Sedimentation Rate, Erythrocyte 33 H C Reactive Protein, Serum 08-Mar-2019 13:00:00 ResultValue C Reactive Protein, Serum 0.66 Assessment and Plan: Assessment: 68 Y/O F with PMHx 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 Pt's symptoms started about a year ago with persistent hematuria, recurrent UTIs accompanied with intermittent flank pain, fatigue, anorexia, alopecia, and weight loss. No symptoms of active SLE other than fatigue and alopecia, no typical Hx of GPA Had +TAMIKA, +anti-SM, +anti-FLOW WORKER, and +anti-chromatin antibodies, low C3 and C4, + ANCA, + PR3 creatinine peaked to 4.17 on 03/03 then downtrend to 2.6 today (baseline 0.7-1.0 at end of 2017) UA + for hematuria, proteinuria + Anemia, low Albumin S/P kidney biopsy on 03/01, Predominantly crescent formation with focal endocapillary proliferative changes, as well as significant global primary sclerosis with moderate to severe fibrotic changes. Immunohistochemistry showed granular, mesangial to capillary wall staining for IgA( trace), IgG(1-2+), IgM(1+), C3(2+), and C1q(trace), kappa and lambda that was stained equally throughout the tubular interstitium. Was started on pulse steroid treatment with 1000mg methylprednisolone and mycophenolate 500mg BID, which was eventually switched to 60mg prednisone daily + cyclophosphamide 50mg BID after biopsy results, and was started on bactrim for PCP prophylaxis. Creatinine peaked at 4.17 on 03/03 then downtrended to 2.61 on transfer from OSH Update: Cr 2.66 today, Hepatitis and HIV screens neg, C3 68 / C4 <8 , CXR didn't show acute changes Labs from [facility] reviewed today, it showed C-ANCA 1:40, MPO 25.7, PR3 8, ESR 100, TAMIKA +, Anti FLOW WORKER>8, Anti SM 1.5, Chromatin 4.1, neg DNA Nephrology team suggest prednisone 60 mg daily and Cellcept 250 mg BID, no plasmaphereses, and they requested to obtain tissue blocks and slides of the kidney biopsy [facility] to be read by pathology at [facility] Impression: Rapidly progressive glomerulonephritis likely related to Lupus nephritis rather than ANCA associated vasculitis ( beside kidney biopsy findings ANCA titer is not impressive, and PR3/MPO both + with low titers ), Plan: - Agree with nephrology team with keeping pt on Prednisone 60 mg daily, and Cellcept 250 mg BID - Pending other labs including TAMIKA, LUIS, anti dsDNA, ANCA with reflex to PR3/MPO, T spot - Discussed with pt if she would like to follow up at , she leaned towards following up with Rheumatology and Nephrology in [place] - Can be discharged from Rheumatology standpoint Pt seen, examined, and discussed with attending, Dr. Tijerina Thank you for the consult, please don't hesitate to contact me if you have any questions. Karime Logan M.D Rheumatology Fellow, PGY 5 Consult Rheumatology pager # [phone] Rheumatology Attending Pt interviewed and examined; above confirmed. The full set of data from [facility] is now available for review and we agree with Nephrology that the evidence favors a diagnosis of systemic lupus with lupus nephritis and that vasculitis is less likely. Agree with the plan to treat with prednisone and mycophenolate. Corina Tijerina MD Signature/Cosignature/Atte station: Note Completion: Attending AttestationI saw and evaluated the patient. I personally obtained the silva and critical portions of the history and physical exam or was physically present for silva and critical portions performed by the resident/fellow. I reviewed the resident/fellows documentation and discussed the patient with the resident/fellow. I agree with the resident/fellows medical decision making as documented in the note. I personally evaluated the patient [id number] Electronic Signatures: Karime Logan (Fellow)) (Signed 09-Mar-2019 20:05) Authored: Service, Subjective Data, Objective Data, Assessment and Plan Corina Tijerina) (Signed 10-Mar-2019 08:20) Authored: Assessment and Plan, Signature/Cosignature/Atte station Co-Signer: Assessment and Plan Last Updated: 10-Mar-2019 08:20 by Corina Tijerina) Normal [facility] GLUCOSE-POCTon 03-09-2019 Glucose [Mass/Vol] 263 mg/dL High 74 - 99 [facility] Comment on above: Performed By: #### C BCDF #### [id number] [place] [address] Glucose [Mass/Vol] 130 mg/dL High 74 - 99 [facility] Comment on above: Performed By: #### G CHRIS ####[id number] [place] [address] Glucose [Mass/Vol] 110 mg/dL High 74 - 99 [facility] Comment on above: Performed By: #### G CHRIS ####[id number], [place] HEPATITIS B CORE AB-TOTALon 03-09-2019 HEP. B CORE AB-TOTAL NONREACTIVE Normal NONREACTIVE [facility] Comment on above: Result Comment: Vanda ents receiving more than 5 mg/day of biotin may have interference in test results. A sample should be taken no sooner than eight hours after previous dose. Contact the testing laboratory for additional information. Performed By: #### H BCRT ####[id number], [place] HEPATITIS B SURF ABon 2018 HEP B SURF AB < 3.1 Normal <10 [facility] Comment on above: Result Comment: INTE RPRETIVE CRITERIA: <10 mIU/mL....NONREACTIVE >=10 mIU/mL...REACTIVE . Patients receiving more than 5 mg/day of biotin may have interference in test results. A sample should be taken no sooner than eight hours after previous dose. Contact the testing laboratory for additional information. Performed By: #### H BAB3 ####[id number], [place] HEPATITIS B SURFACE AGon HEP.B SURFACE AG NONREACTIVE Normal NONREACTIVE [facility] Comment on above: Result Comment: Vanda ents receiving more than 5 mg/day of biotin may have interference in test results. A sample should be taken no sooner than eight hours after previous dose. Contact the testing laboratory for additional information. Performed By: #### H BSAG ####[id number], [place] Lab Specimen Source Normal [facility] Comment on above: Performed By: #### H BSAG ####[id number], [place] Performed By: #### C 3 ####[id number], [place] Performed By: #### H BCRT ####[id number], [place] Performed By: #### C 4 ####[id number] [id number] Performed By: #### H CVAB ####[id number], [place] Performed By: #### H BAB3 ####[id number], [place] HEPATITIS C ABon 03-09-2019 HEPATITIS C AB NON-REACTIVE Normal NONREACTIVE [facility] Comment on above: Result Comment: Vanda ents receiving more than 5 mg/day of biotin may have interference in test results. A sample should be taken no sooner than eight hours after previous dose. Contact the testing laboratory for additional information. Performed By: #### H CVAB ####[id number], [place] RENAL FUNCTION PANELon 03-09 Albumin [Mass/Vol] 2.9 g/dL Low 3.4 - 5.0 [facility] Comment on above: Performed By: #### R ENAL ####[id number] [place] [address] Anion gap [Moles/Vol] 17 mmol/L Normal 10 - 20 [facility] Comment on above: Performed By: #### R ENAL ####[id number] [place] [address] Calcium [Mass/Vol] 8.7 mg/dL Normal 8.6 - 10.6 [facility] Comment on above: Performed By: #### R ENAL ####[id number] [place] [address] Chloride [Moles/Vol] 103 mmol/L Normal 98 - 107 [facility] Comment on above: Performed By: #### R ENAL ####[id number] [place] [address] Creatinine [Mass/Vol] 2.66 mg/dL High 0.50 - 1.05 [facility] Comment on above: Performed By: #### R ENAL ####[id number] [place] [address] GFR- AM. 22 mL/min/1.73m2 Abnormal >60 [facility] Comment on above: Result Comment: CALC ULATIONS OF ESTIMATED GFR ARE PERFORMED USING THE MDRD STUDY EQUATION FOR THE IDMS-TRACEABLE CREATININE METHODS. CLIN CHEM 2007;53:766-72 Performed By: #### R ENAL ####[id number] [place] [address] GFR-NON AM. 18 mL/min/1.73m2 Abnormal >60 [facility] Comment on above: Performed By: #### R ENAL ####[id number] [place] [address] Glucose [Mass/Vol] 128 mg/dL High 74 - 99 [facility] Comment on above: Performed By: #### R ENAL ####[id number] [place] [address] HCO3 (Bld) [Moles/Vol] 25 mmol/L Normal 21 - 32 [facility] Comment on above: Performed By: #### R ENAL ####[id number] [place] [address] Phosphate [Mass/Vol] 4.4 mg/dL Normal 2.5 - 4.9 [facility] Comment on above: Result Comment: The performance characteristics of phosphorus testing in heparinized plasma have been validated by the individual laboratory site where testing is performed. Testing on heparinized plasma is not approved by the FDA; however, such approval is not necessary. Performed By: #### R ENAL ####[id number] [place] [address] Potassium [Moles/Vol] 4.6 mmol/L Normal 3.5 - 5.3 [facility] Comment on above: Performed By: #### R ENAL ####[id number] [place] [address] Sodium [Moles/Vol] 140 mmol/L Normal 136 - 145 [facility] Comment on above: Performed By: #### R ENAL ####[id number] [place] [address] Urea nitrogen [Mass/Vol] 88 mg/dL High 6 - 23 [facility] Comment on above: Performed By: #### R ENAL ####[id number] [place] [address] Admission Risk Screen - Adul ton 03-08-2019 Admission Risk Screen - Adult Allergies: Allergies: contrast (specific type unknown): Anaphylaxis penicillin: Unknown Patient Verification: New W ID Band Applied in my Departmentyes Patient Identity Verified Bypatient ID Band FULL Name, include Middle, spelling matches patient's ID used for verificationyes ID Band Matches Patient ID used for Verficationyes ID Band MRN Matches EMR MRNyes Advance Directive: Advance Directive/DNRyes Advance Directive typeLiving Will Living Will AvailabilityLiving Will not available now Living Will [id number] Falls Screen: Type of Assessmentadmission Moderate Risk Factorspatient care equipment (scds, ivs, chest tubes, gerber, etc) Risk for Injury Associated with Fallnone Fall Risk Conclusionmoderate falls risk with low risk for associated injury [place] Safety InterventionsWDL *orient to call system *instruct to call for assistance before getting out of bed *non-slip footwear when patient is out of bed *call reid in reach *personal items and telephone in reach *physically safe environment (no spills or clutter) *bed in lowest position with wheels locked *appropriate side rails in place *room/bathroom lighting operational, light cord in reach *appropriate signage on door Fall and Injury Risk Interventionscollaborate with team for PT/OT consult/ambulatory aids, educate pt/family, monitor med side effects, consult Pharmacy, individualized toileting schedule Family Violence Screen: Are you or have you been threatened or abused physically, emotionally, or sexually by anyoneno Do you feel UNSAFE going back to the place where you are livingno Clinical assessment: Are there any apparent signs of injuries/behaviors that could be related to abuse/neglectno Social Service Consult for abuse/neglect needed this visitno Functional screen: Functional Screen: In the recent/past 2-4 weeks, patient or family have noticedno issues that require a rehabilitation consult at this time Learning Assessment (Patient): Patient is Able to be Assessed for Learningyes Factors Influencing Readiness to Learnacuteness of illness; pain Factors that Impact Ability to Learnnone Devices/Methods Used to Communicatecommunication board Learning Preferencesindividual instruction; verbal instruction Cultural Considerationsnone Developmental Considerationsnone Scientology Considerationsreligious considerations Pentecostal Learning Assessment (Other Learner): Other learner availableno Suicide/Depression Screen: During the past month, have you often been bothered by feeling down, depressed or hopelessyes During the past month, have you often had little interest or pleasure in doing thingsyes Have you had any thoughts of harming yourselfno Have you had any thoughts of harming anyone elseno Adult Nutrition Screen: Have you recently lost weight without tryingyes; 14-23 lb Have you been eating poorly because of a decreased appetiteyes Malnutrition Screening Tool Score3 Malnutrition Screening Tool RiskMST = 2 or more At Risk. Eating poorly and/or recent weight loss Nutrition Consult needed this visityes Can Patient Participate in Room Serviceyes Patient requires Paper Dishes/Plastic Utensilsno Pain Screen: Pain Scalenumerical 0-10 Pain Scale Educationteaching provided Current Pain Level0 = None Acceptable Pain Level0 = None Expression of Pain (nonverbal)verbalization Chronic Painno Spiritual Screen: Are there any cultural, spiritual, church practices/values/needs that are important for us to knowno Do you want a visit/item from Pastoral Careyes Is there any particular item/ help you need from Pastoral CareCommunion, prayer / pastoral support CAGE: [place] an [place] [place]Елена/Xiomara/Bharti [place]): no Vaccinations: Vaccination - Influenza Vaccination Screen: Is it flu season (between and December 12)No Vaccination - Pneumonia Vaccination Screen: Patient has received a previous pneumonia vaccine:no/unknown... Pneumonia vaccine NOT indicated due to:No contraindications to vaccine Pneumonia vaccine indicatedyes Morgan: Skin - Morgan Scale: Morgan: Sensory Perception (response to environment)(4) no impairment Morgan: Moisture (degree skin exposed to moisture)(4) rarely moist Morgan: Activity (ability to walk)(4) walks frequently Morgan: Mobility (amount/control of body movement)(4) no limitation Morgan: Nutrition (quality of food intake)(4) excellent Morgan: Friction and Shear(3) no apparent problem Morgan: Score23 Significant Indicatiors: Significant Indicators: Complete Pressure Injury: Pressure Injury Present on Admissionno Electronic Signatures: Mariposa Vincent) (Signed 08-Mar-2019 13:36) Authored: Admission Risk Screens, Vaccinations, Morgan, Pressure Injury Last Updated: 08-Mar-2019 13:36 by Mariposa Vincent (RN) Normal [facility] C-REACTIVE PROTEINon 019 CRP [Mass/Vol] 0.66 mg/dL Normal [facility] Comment on above: Result Comment: REF VALUE < 1.00 Performed By: #### C RP #### [facility] [address] [place] [address] CBC AND DIFFERENTIALon 03-08 % AUTOMATED IMMATURE GRAN 3.7 % High 0.0 - 0.9 [facility] Comment on above: Result Comment: Perc ent differential counts (%) should be interpreted in the context of the absolute cell counts (cells/L). Performed By: #### C BCDF #### [facility] [address] [place] [address] Basophils (Bld) [#/Vol] 0.05 10*3/uL Normal 0.00 - 0.10 [facility] Comment on above: Performed By: #### C BCDF #### [facility] [address] [place] [address] Basophils/100 WBC (Bld) 0.3 % Normal 0.0 - 2.0 [facility] Comment on above: Performed By: #### C BCDF #### [facility] [address] [place] [address] Eosinophils (Bld) [#/Vol] 0.00 10*3/uL Normal 0.00 - 0.70 [facility] Comment on above: Performed By: #### C BCDF #### [facility] [address] [place] [address] Eosinophils/100 WBC (Bld) 0.0 % Normal 0.0 - 6.0 [facility] Comment on above: Performed By: #### C BCDF #### [facility] [address] [place] [address] Erythrocyte distribution width (RBC) [Ratio] 16.1 % High 11.5 - 14.5 [facility] Comment on above: Performed By: #### C BCDF #### [facility] [address] [place] [address] Hematocrit (Bld) [Volume fraction] 28.3 % Low 36.0 - 46.0 [facility] Comment on above: Performed By: #### C BCDF #### [facility] [address] [place] [address] Hemoglobin (Bld) [Mass/Vol] 9.3 g/dL Low 12.0 - 16.0 [facility] Comment on above: Performed By: #### C BCDF #### [facility] [address] [place] [address] Lymphocytes (Bld) [#/Vol] 0.49 10*3/uL Low 1.20 - 4.80 [facility] Comment on above: Performed By: #### C BCDF #### [facility] [address] [place] [address] Lymphocytes/100 WBC (Bld) 3.0 % Normal 13.0 - 44.0 [facility] Comment on above: Performed By: #### C BCDF #### [facility] [address] [place] [address] MCHC (RBC) [Mass/Vol] 32.9 g/dL Normal 32.0 - 36.0 [facility] Comment on above: Performed By: #### C BCDF #### [facility] [address] [place] [address] MCV (RBC) [Entitic vol] 93 fL Normal 80 - 100 [facility] Comment on above: Performed By: #### C BCDF #### [facility] [address] [place] [address] Monocytes (Bld) [#/Vol] 1.21 10*3/uL High 0.10 - 1.00 [facility] Comment on above: Performed By: #### C BCDF #### [facility] [address] [place] [address] Monocytes/100 WBC (Bld) 7.5 % Normal 2.0 - 10.0 [facility] Comment on above: Performed By: #### C BCDF #### [facility] [address] [place] [address] Neutrophils (Bld) [#/Vol] 13.74 10*3/uL High 1.20 - 7.70 [facility] Comment on above: Performed By: #### C BCDF #### [facility] [address] [place] [address] Neutrophils/100 WBC (Bld) 85.5 % Normal 40.0 - 80.0 [facility] Comment on above: Performed By: #### C BCDF #### [facility] [address] [place] [address] Nucleated RBC/100 WBC (Bld) [Ratio] 0.0 /100 WBC Normal 0.0-0.0 [facility] Comment on above: Performed By: #### C BCDF #### [facility] [address] [place] [address] Platelets (Bld) [#/Vol] 256 10*3/uL Normal 150 - 450 [facility] Comment on above: Performed By: #### C BCDF #### [facility] [address] [place] [address] RBC (Bld) [#/Vol] 3.05 x10E12/L Low 4.00 - 5.20 [facility] Comment on above: Performed By: #### C BCDF #### [facility] [address] [place] [address] WBC (Bld) [#/Vol] 16.1 10*3/uL High 4.4 - 11.3 [facility] Comment on above: Performed By: #### C BCDF #### [facility] [address] [place] [address] COMPREHENSIVE PANELon 2018 Albumin [Mass/Vol] 3.2 g/dL Low 3.4 - 5.0 [facility] Comment on above: Performed By: #### C MP #### [facility] [address] [place] [address] ALP [Catalytic activity/Vol] 46 U/L Normal 33 - 136 [facility] Comment on above: Performed By: #### C MP #### [facility] [address] [place] [address] ALT [Catalytic activity/Vol] 15 U/L Normal 7 - 45 [facility] Comment on above: Result Comment: Vanda ents treated with Sulfasalazine may generate falsely decreased results for ALT. Performed By: #### C MP #### [facility] [address] [place] [address] Anion gap [Moles/Vol] 16 mmol/L Normal 10 - 20 [facility] Comment on above: Performed By: #### C MP #### [facility] [address] [place] [address] AST [Catalytic activity/Vol] 11 U/L Normal 9 - 39 [facility] Comment on above: Performed By: #### C MP #### [facility] [address] [place] [address] Bilirubin [Mass/Vol] 0.7 mg/dL Normal 0.0 - 1.2 [facility] Comment on above: Performed By: #### C MP #### [facility] [address] [place] [address] Calcium [Mass/Vol] 8.9 mg/dL Normal 8.6 - 10.6 [facility] Comment on above: Performed By: #### C MP #### [facility] [address] [place] [address] Chloride [Moles/Vol] 102 mmol/L Normal 98 - 107 [facility] Comment on above: Performed By: #### C MP #### [facility] [address] [place] [address] Creatinine [Mass/Vol] 2.68 mg/dL High 0.50 - 1.05 [facility] Comment on above: Performed By: #### C MP #### [facility] [address] [place] [address] GFR- AM. 22 mL/min/1.73m2 Abnormal >60 [facility] Comment on above: Result Comment: CALC ULATIONS OF ESTIMATED GFR ARE PERFORMED USING THE MDRD STUDY EQUATION FOR THE IDMS-TRACEABLE CREATININE METHODS. CLIN CHEM 2007;53:766-72 Performed By: #### C MP #### [facility] [address] [place] [address] GFR-NON AM. 18 mL/min/1.73m2 Abnormal >60 [facility] Comment on above: Performed By: #### C MP #### [facility] [address] [place] [address] Glucose [Mass/Vol] 116 mg/dL High 74 - 99 [facility] Comment on above: Performed By: #### C MP #### [facility] [address] [place] [address] HCO3 (Bld) [Moles/Vol] 26 mmol/L Normal 21 - 32 [facility] Comment on above: Performed By: #### C MP #### [facility] [address] [place] [address] Potassium [Moles/Vol] 4.0 mmol/L Normal 3.5 - 5.3 [facility] Comment on above: Performed By: #### C MP #### [facility] [address] [place] [address] Protein [Mass/Vol] 6.4 g/dL Normal 6.4 - 8.2 [facility] Comment on above: Performed By: #### C MP #### [facility] [address] [place] [address] Sodium [Moles/Vol] 140 mmol/L Normal 136 - 145 [facility] Comment on above: Performed By: #### C MP #### [facility] [address] [place] [address] Urea nitrogen [Mass/Vol] 87 mg/dL High 6 - 23 [facility] Comment on above: Performed By: #### C MP #### [facility] [address] 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 She was worked up with imaging and cystoscopy with no abnormalities found. Over the past few weeks she started complaining of worsening fatigue, decreased appetite and mild stiffness in her joints difusly, mostly mcps. SHe also reported 25 pound un-intentional weight loss over last year. The patient had workup on outside basis done which showed worsening kidney function with Cr of 3.2 (Bl 0.7), hematuria and proteinuria, after which she was admitted to [facility] for workup. over there workup showed +ve TAMIKA, +ve anti-SM, +ve anti-FLOW WORKER, +ve anti-chromatin, low C3 and C4 and +ve ANCA and PR3. a kidney biopsy was done which showed predominantly crescent formation with focal endocapillary proliferation (NIH lupus nephritis activity score 7/24, chronicity score 6/12). the patient was started on methylprednisolone 1000 mg x 3 days followed by prednisone 60 g wong and cyclophosphamide 50 mg BID. She was also started on bactrim for PCP prophylaxis and received procrit 69458 units for her anemia. Patient continued to have worsening kidney function and was transferred here for further assessment and consideration of plasmapheresis. 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 - continue bactrim for pcp prophylaxix - continue levothyroxine per home dose. - renal diet + monitor blood sugars. - heparin for dvt ppx - continue amlodipine for Bp control Sunny Haskins, PGY3 [facility] within working hours otherwise [place] team pager [phone] Electronic Signatures: Sunny Chen (Resident)) (Signed 08-Mar-2019 13:39) Authored: Event Last Updated: 08-Mar-2019 13:39 by Sunny Chen (Resident)) Normal [facility] Clinical Intervention - Jone thakur 03-08-2019 Clinical Intervention - Pharmacy Pharmacist's Clinical Intervention: Active and Pending Medications: amLODIPine (NORVASC), Tablet DOSE = 10 mg Oral Daily, 08-Mar-2019, Active Reason for pharmacist's clinical intervention: home med low/normal BP Pharmacist intervention: Contacted physician, per Dr. Lau, was on at [facility] for anca vasculitis x1 week Expected outcome and basis: Order clarified or corrected Time Required: 5 - 10 minutes Electronic Signatures: Abby Jeffery (PH) (Signed 08-Mar-2019 14:09) Authored: Pharmacist's Clinical Intervention Last Updated: 08-Mar-2019 14:09 by Abby Jeffery (PH) Normal 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 Her symptoms started approximately 1 year ago with R flank pain, proteinuria and hematuria which was worked up for UTI multiple times. Urology also did perform a cystoscopy on the patient for workup of malignancy but all testing was benign. CT abdomen showed no masses. For the past few months, she continued to have R flank pain with 20lb weight loss and hair loss. She did see her PCP about this a few weeks ago who noted her Cr was elevated requiring further monitoring and serologic work up for SLE, which resulted +TAMIKA, +anti-SM, +anti-FLOW WORKER, and +anti-chromatin antibodies. Her PCP did start her on oral steroids until creative specialist appointment. She was seen in her [facility], Dr. Aiken's office the day before presentation where she had low C3 and C4 with elevated creatinine to 3.2 (baseline 0.7-1.0 at end of 2017), concerning for active lupus nephritis and kidney failure. 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 Her Cr on admission there was 3.57, BUN 52 and she did report metallic taste at that time. She was started on pulse steroid treatment with 1000mg methylprednisolone and mycophenolate 500mg BID, which was eventually switched to 60mg prednisone daily + cyclophosphamide 50mg BID after biopsy results. She also had high BP to 170s on admission, which was controlled to 130s after addition of amlodipine 10mg daily. She was started on bactrim for PCP prophylaxis. Creatinine peaked at 4.17 on 03/03 then downtrended to 2.61 on transfer from [facility]. Kidney biopsy revealed predominantly crescent formation with focal endocapillary proliferative changes, as well as significant global primary sclerosis with moderate to severe fibrotic changes. Immunohistochemistry showed granular, mesangial to capillary wall staining for IgA, IgG, IgM, C3, and C1q, kappa and lambda that was stained equally throughout the tubular interstitium. 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 She also had low C3 and C4 suggesting active phase of SLE. Today, patient reports no current symptoms of active SLE flare including malar rash, hair loss, joint pain. She reported no SOB, hemoptysis, LE edema, chest pain, blurry vision, confusion, N/V, pruritis. She does report decreased appetite, but no further ROS are positive PMHx: as above PSHx: hx tubal ligation, lumpectomy, thyroidectomy Fam hx: no kidney disease social hx: never smoked, never drinks, no illicit drug use. lives with in [place] allergies: penicillins, iodinated contrast oral and IV home meds: levothyroxine 100 mcg PO qday Allergies: contrast (specific type unknown): Anaphylaxis penicillin: Unknown Objective: Objective Information: T PRBPSpO2 [id number]% Date/Time03/08 14: 14: 14: 14: 14:45 Range(36.1C - 36.3C ) (81 - 86 ) (18 - 18 ) (117 - 126 )/ (67 - 71 ) (97% - 100% ) Weights 03/08 13:22: Weight in kg (Weight (kg)) 52.6 03/08 13:22: Weight in lbs ((lbs)) 116 03/08 13:22: BMI (kg/m2) (BMI (kg/m2)) 20.546 Pain reported at 03/08 12:02: 0 = None Physical Exam: Constitutional: Well developed, awake/alert/oriented x3, no distress, alert and cooperative Eyes: PERRL, EOMI, clear sclera ENMT: mucous membranes moist, no apparent injury, no lesions seen Head/Neck: Neck supple, no apparent injury, No JVD, trachea midline, no bruits Respiratory/Thorax: Patent airways, CTAB, normal breath sounds with good chest expansion, thorax symmetric Cardiovascular: Regular, rate and rhythm, no murmurs, 2+ equal pulses of the extremities, normal S 1and S 2 Gastrointestinal: Nondistended, soft, non-tender, no rebound tenderness or guarding, no masses palpable, no organomegaly, +BS, no bruits Musculoskeletal: ROM intact, no joint swelling, normal strength Extremities: normal extremities, no cyanosis edema, contusions or wounds, no clubbing Neurological: alert and oriented x3, intact senses, motor, response and reflexes, normal strength Psychological: Appropriate mood and behavior Skin: Warm and dry, no lesions, no rashes Medications: Medications: Continuous Medications ------ No continuous medications are active Scheduled Medications ------ 1. amLODIPine (NORVASC): 10 mg Oral Daily 2. Levothyroxine: 100 microgram(s) Oral Daily 3. predniSONE: 60 mg Oral Every 24 Hours 4. Sulfamethoxazole 800 mg - Trimethoprim 160 m tablet(s) Oral Schedule> PRN Medications ------ 1. Dextrose 50% in Water Injectable: 25 gram(s) IntraVenous Push Every 15 Minutes 2. Dextrose 50% in Water Injectable: 12.5 gram(s) IntraVenous Push Every 15 Minutes 3. Glucagon Injectable: 1 mg IntraMuscular Every 15 Minutes 4. LORazepam: 0.5 mg Oral Every 8 Hours Recent Lab Results: Results: I have reviewed these laboratory results: Complete Blood Count + Differential 08-Mar-2019 13:00:00 ResultValue White Blood Cell Count 16.1 H Nucleated Erythrocyte Count 0.0 Red Blood Cell Count 3.05 L HGB 9.3 L HCT 28.3 L MCV 93 MCHC 32.9 PLT 256 RDW-CV 16.1 H Neutrophil % 85.5 Immature Granulocytes % 3.7 H Lymphocyte % 3.0 Monocyte % 7.5 Eosinophil % 0.0 Basophil % 0.3 Neutrophil Count 13.74 H Lymphocyte Count 0.49 L Monocyte Count 1.21 H Eosinophil Count 0.00 Basophil Count 0.05 Comprehensive Metabolic Panel 08-Mar-2019 13:00:00 ResultValue Glucose, Serum 116 H NA 140 K 4.0 CL 102 Bicarbonate, Serum 26 Anion Gap, Serum 16 BUN 87 H CREAT 2.68 H GFR-Non 18 A GFR- 22 A Calcium, Serum 8.9 ALB 3.2 L ALKP 46 T Pro 6.4 T Bili 0.7 Alanine Aminotransferase, Serum 15 Aspartate Transaminase, Serum 11 PT + INR, Plasma 08-Mar-2019 13:00:00 ResultValue Prothrombin Time, Plasma 10.9 International Normalized Ratio, Plasma 1.0 Sedimentation Rate, Erythrocyte 08-Mar-2019 13:00:00 ResultValue Sedimentation Rate, Erythrocyte 33 H C Reactive Protein, Serum 08-Mar-2019 13:00:00 ResultValue C Reactive Protein, Serum 0.66 Assessment: Bhumika Wheatley is a 68yo F with 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 She also had low C3 and C4 suggesting active phase of SLE with recent lab results indicating +TAMIKA, +anti-SM, +anti-FLOW WORKER, and +anti-chromatin. 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 She was admitted to [facility] for evaluation for plasmapheresis 1. ANCA vasculitis, GPA type 2. SLE 3. hypothyroidism 4. hx IDC stage 1 s/p radiation Recommendations: Though she originally did have a rapidly progressive glomerulonephritis with Cr peak at 4.17 on 03/03, her Cr has downtrended to 2.68 today. She has received pulse methylpred for 3 days starting 03/01 and now continues on PO prednisone 60mg and cyclophosphamide 50mg PO BID (2mg/kg/day). Given downtrend, there is no urgent need for plasmapheresis at this time. We will continue to monitor Cr and symptoms. There are also no urgent indications for hemodialysis at this time including volume overload, uremia, or hyperkalemia. - continue prednisone 60mg daily - continue cyclophosphamide 50mg BID - maintain adequate PO fluid intake given risk of cystitis - can continue amlodipine 10mg daily for BP control, but keep systolic BP > 110 for adequate renal perfusion. Consider decreasing dose if BPs fall below 110 systolic. - consider CXR to evaluate for pulmonary symptoms in c-ANCA disease - no need for urgent HD at this time - no need for plasmapheresis at this time - renal diet - strict I&Os - avoid nephrotoxics, NSAIDs, IV contrast (allergic), and hypotension when possible - daily RFPs for Cr trend - any further workup per rheumatology - rest per primary Evelyn Oviedo PGY-1 Internal Medicine Renal Consults Pager [phone], doc halo Signature/Cosignature/Atte station: Note Completion: Attending AttestationI saw and evaluated the patient. I personally obtained the silva and critical portions of the history and physical exam or was physically present for silva and critical portions performed by the resident/fellow. I reviewed the resident/fellows documentation and discussed the patient with the resident/fellow. I agree with the resident/fellows medical decision making as documented in the note. I personally evaluated the patient [id number] Electronic Signatures: Osmin Ann () (Signed 10-Mar-2019 11:10) Authored: Service, Signature/Cosignature/Atte station Co-Signer: Service, History of Present Illness, Allergies, Objective, Assessment/Recommendations , Signature/Cosignature/Atte station Evelyn Oviedo (Resident)) (Signed 08-Mar-2019 16:39) Authored: Service, History of Present Illness, Allergies, Objective, Assessment/Recommendations , Signature/Cosignature/Atte station Last Updated: 10-Mar-2019 11:10 by Osmin Ann) Normal 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 Pt's symptoms started about a year ago with persistent hematuria, recurrent UTIs accompanied with intermittent flank pain, fatigue, anorexia and alopecia, was seen by urology who perform a cystoscopy which was WNL, she continued to have fatigue, has lost 20 Ibs recently, she was seen by her PCP few weeks ago who noted her Cr was elevated requiring further monitoring and serologic work up for SLE, which resulted +TAMIKA, +anti-SM, +anti-FLOW WORKER, and +anti-chromatin antibodies. 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 She was started on pulse steroid treatment with 1000mg methylprednisolone and mycophenolate 500mg BID, which was eventually switched to 60mg prednisone daily + cyclophosphamide 50mg BID after biopsy results. She also had high BP to 170s on admission, which was controlled to 130s after addition of amlodipine 10mg daily. She was started on bactrim for PCP prophylaxis. Creatinine peaked at 4.17 on 03/03 then downtrended to 2.61 on transfer from OSH. Currently pt denies any malar rash, joint pain, photosensitivity, oral ulcers, Raynaud's, chest pain or SOB, no Hx of sinusitis, no headache, no vision changes or eye redness, no hearing changes, no hemoptysis, LE edema, confusion, N/V/D. Otherwise ROS is negative unless listed above. PMHx: as above PSHx: hx tubal ligation, lumpectomy, thyroidectomy Fam hx: no kidney disease social hx: never smoked, never drinks, no illicit drug use. lives with in [place] allergies: penicillins, iodinated contrast oral and IV home meds: levothyroxine 100 mcg PO qday Allergies: contrast (specific type unknown): Anaphylaxis penicillin: Unknown Allergies: contrast (specific type unknown): Anaphylaxis penicillin: Unknown Objective: Objective Information: T PRBPSpO2 [id number]% Date/Time03/08 19: 19: 19: 19: 19:33 Range(36.1C - 36.3C ) (81 - 86 ) (18 - 18 ) (117 - 134 )/ (67 - 71 ) (97% - 100% ) PE: General - NAD Eyes - PERRLA, EOM intact. No conjunctiva injection. ENT - moist oral and nasal mucosa. No facial rash. No enlarge parotid or submandibular gland. Adequate saliva pooling. Neck - No cervical lymphadenopathy. No thyromegaly. Normal flexion, extension, right rotation, and left rotation. Cardiovascular - RRR no m/r/g. Lungs - Clear to auscultation, no use of accessory muscles, no crackles or wheezes. Skin - warm and dry, No erythema on bilateral cheeks. Abdomen - Normal bowel sounds, abdomen soft and nontender. Extremities - No edema, cyanosis or clubbing Musculoskeletal - Upper extremities: 5/5 in strength in bilateral distal and proximal extremities. Shoulders: No joint effusion or warmth or pain on palpation, full ROM Hands: No joint effusion or warmth or pain on palpation, full ROM. Able to fully make a fist bilaterally. No pitting or spooning of the nails bilaterally. Wrists: No joint effusion or warmth or pain on palpation, full ROM. Elbows: No joint effusion or warmth or pain on palpation, full ROM Spine: No SI joint pain. Lower extremities: 5/5 strength in distal and proximal extremities. good symmetric distal pulses, no peripheral edema, no clubbing/cyanosis. Knees: No joint effusion or warmth or pain on palpation, full ROM. Feet: No ankle joint effusion or warmth on palpation, full ROM, no pain with MTP squeeze Neurological - Alert and oriented x 3, CN 2-12 grossly intact. Sensation intact bilaterally. Medications: Medications: Continuous Medications ------ No continuous medications are active Scheduled Medications ------ 1. amLODIPine (NORVASC): 10 mg Oral Daily 2. Levothyroxine: 100 microgram(s) Oral Daily 3. predniSONE: 60 mg Oral Every 24 Hours 4. Sulfamethoxazole 800 mg - Trimethoprim 160 m tablet(s) Oral Schedule> PRN Medications ------ 1. Dextrose 50% in Water Injectable: 25 gram(s) IntraVenous Push Every 15 Minutes 2. Dextrose 50% in Water Injectable: 12.5 gram(s) IntraVenous Push Every 15 Minutes 3. Glucagon Injectable: 1 mg IntraMuscular Every 15 Minutes 4. LORazepam: 0.5 mg Oral Every 8 Hours Recent Lab Results: Results: I have reviewed these laboratory results: Urinalysis 08-Mar-2019 17:46:00 ResultValue Color, Urine YELLOW Reference Range: STRAW,YELLOW Appearance, Urine HAZY Specific Camino, Urine 1.008 pH, Urine 5.0 Protein, Urine 100 (2+) A Glucose, Urine >=500 (3+) A Blood, Urine LARGE (3+) A Ketones, Urine NEGATIVE Bilirubin, Urine NEGATIVE Urobilinogen, Urine <2.0 Nitrite, Urine NEGATIVE Leukocyte Esterase, Urine NEGATIVE Urinalysis, Microscopic 08-Mar-2019 17:46:00 ResultValue White Cells 10 A Red Blood Cells 56 A Epithelial Cells, Squamous 1 Bacteria, Urine 1+ A Complete Blood Count + Differential 08-Mar-2019 13:00:00 ResultValue White Blood Cell Count 16.1 H Nucleated Erythrocyte Count 0.0 Red Blood Cell Count 3.05 L HGB 9.3 L HCT 28.3 L MCV 93 MCHC 32.9 PLT 256 RDW-CV 16.1 H Neutrophil % 85.5 Immature Granulocytes % 3.7 H Lymphocyte % 3.0 Monocyte % 7.5 Eosinophil % 0.0 Basophil % 0.3 Neutrophil Count 13.74 H Lymphocyte Count 0.49 L Monocyte Count 1.21 H Eosinophil Count 0.00 Basophil Count 0.05 Comprehensive Metabolic Panel 08-Mar-2019 13:00:00 ResultValue Glucose, Serum 116 H NA 140 K 4.0 CL 102 Bicarbonate, Serum 26 Anion Gap, Serum 16 BUN 87 H CREAT 2.68 H GFR-Non 18 A GFR- 22 A Calcium, Serum 8.9 ALB 3.2 L ALKP 46 T Pro 6.4 T Bili 0.7 Alanine Aminotransferase, Serum 15 Aspartate Transaminase, Serum 11 PT + INR, Plasma 08-Mar-2019 13:00:00 ResultValue Prothrombin Time, Plasma 10.9 International Normalized Ratio, Plasma 1.0 Sedimentation Rate, Erythrocyte 08-Mar-2019 13:00:00 ResultValue Sedimentation Rate, Erythrocyte 33 H C Reactive Protein, Serum 08-Mar-2019 13:00:00 ResultValue C Reactive Protein, Serum 0.66 Assessment: 68yo F with PMHx 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 Pt's symptoms started about a year ago with persistent hematuria, recurrent UTIs accompanied with intermittent flank pain, fatigue, anorexia, alopecia, and weight loss. No symptoms of active SLE other than fatigue and alopecia, no typical Hx of GPA Had +TAMIKA, +anti-SM, +anti-FLOW WORKER, and +anti-chromatin antibodies, low C3 and C4, + ANCA, + PR3 creatinine peaked to 4.17 on 03/03 then downtrend to 2.6 today (baseline 0.7-1.0 at end of 2017) UA + for hematuria, proteinuria + Anemia, low Albumin S/P kidney biopsy on 03/01, Predominantly crescent formation with focal endocapillary proliferative changes, as well as significant global primary sclerosis with moderate to severe fibrotic changes. Immunohistochemistry showed granular, mesangial to capillary wall staining for IgA( trace), IgG(1-2+), IgM(1+), C3(2+), and C1q(trace), kappa and lambda that was stained equally throughout the tubular interstitium. Was started on pulse steroid treatment with 1000mg methylprednisolone and mycophenolate 500mg BID, which was eventually switched to 60mg prednisone daily + cyclophosphamide 50mg BID after biopsy results, and was started on bactrim for PCP prophylaxis. 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 Tijerina Thank you for the consult, please don't hesitate to contact me if you have any questions. Karime Logan M.D Rheumatology Fellow, PGY 5 Consult Rheumatology pager # [phone] Rheumatology Attending Pt interviewed and examined; [facility] reviewed including the renal biopsy report. At this point glomerular injury due to an ANCA-associated vasculitis seems more likely than SLE but some of the laboratory tests from [facility] are not in the available records. Will review the remaining laboratory data as it becomes available. For now can continue prednisone, stop cyclophosphamide and await the parallel Nephrology assessment. Corina Tijerina MD Signature/Cosignature/Atte station: Note Completion: Attending AttestationI saw and evaluated the patient. I personally obtained the silva and critical portions of the history and physical exam or was physically present for silva and critical portions performed by the resident/fellow. I reviewed the resident/fellows documentation and discussed the patient with the resident/fellow. I agree with the resident/fellows medical decision making as documented in the note. I personally evaluated the patient [id number] Electronic Signatures: Karime Logan (Fellow)) (Signed 08-Mar-2019 20:53) Authored: Service, History of Present Illness, Allergies, Objective, Assessment/Recommendations Corina Tijerina) (Signed 09-Mar-2019 10:58) Authored: Assessment/Recommendations , Signature/Cosignature/Atte station Co-Signer: Service, History of Present Illness, Allergies, Objective, Assessment/Recommendations Last Updated: 09-Mar-2019 10:58 by Corina Tijerina) Normal [facility] Discharge Planning Noteon Discharge Planning Note Patient Learning: Factors that Impact Ability to Learnnone(1) Other Factors: Functional Screen: In the recent/past 2-4 weeks, patient or family have noticedno issues that require a rehabilitation consult at this time(1) Discharge Planning: Discharge Plannin03/08/19 discharge planning note patient arrived to [place] [id number] from [facility]. lives in [place] with . anticipating being discharged home with no needs. patient has cell phone, wallet and purse, glasses on her face and clothing. patient ambulates well. will continue to monitor. Mariposa vincent RN (03/09/19)([id number])Transitiona l Care Coordination Progress Note: Patient discussed during interdisciplinary rounds. Team members present: SATHISH, ABIEL-Kin Tolliver Plan per [place] team: Pt will need CT abd/pelvis and need to monitor pt's K levels Discharge disposition: home Potential Barriers: NMR ADOD: 03/12 Kylee Corrales RN 03/12/19 1310 Transitional Ophthalmic Surgical Assistant Note Attempted to meet pt but pt off the floor at this time. Will attempt to meet pt another time. Kylee Corrales RN 03/13/19 1240 Transitional Ophthalmic Surgical Assistant Note Met with patient and introduced myself as a Transitional Ophthalmic Surgical Assistant. Address, phone, and emergency contact verified. Patient lives at home with her , Corina ([phone]) who is pts primary support person. Pt ambulatory and denies use of assistive devices, denies having any recent falls, and feels safe at home. Pt denies rehab/snf in past and denies home care services. Pts PCP is Dr. Cano and the pharmacy pt uses is [facility] in [place]. Pt has transportation to her medical appointments. Pt medically ready for discharge at this time and ADOD is today. When medically ready, pt states her will be able to take pt home. Pt denies any spiritual or cultural requests needs. All questions and concerns addressed and made aware to contact [facility] if there are any further questions and concerns. Will continue to follow pt to assess for discharge needs. Kylee Corrales RN Electronic Signatures: Mariposa Vincent (RN) (Signed 08-Mar-2019 16:30) Authored: Discharge Planning Note Kylee Corrales (CLIN COOR) (Signed 14-Mar-2019 22:22) Authored: Discharge Planning Note Last Updated: 14-Mar-2019 22:22 by Kylee Corrales (CLIN COOR) References: 1. Data Referenced From Admission Risk Screen - Adult 08-Mar-2019 13:[address] [facility] GLUCOSE-POCTon 03-08-2019 Glucose [Mass/Vol] 236 mg/dL High 74 - 99 [facility] Comment on above: Performed By: #### G CHRIS ####[id number] [place] [address] History and Physicalon 03-08 History and Physical History of Present Illness: HPI: Ms. Wheatley is a 68 year old female who is admitted here from [facility] for management of SLE nephritis vs ANCA vasculitis or concurrent. PMHx is significant for stage 1 intraductal carcinoma (T1N0M0) s/p lumpectomy and radiation (1992), hx of thyroid cancer (unclear what type of thyroid cancer) s/p thyroidectomy (on levothyroxine 100 mcg), and hx of kidney stones. Approximately 1 year ago, patient noted persistent R flank pain w/ work-up significant for proteinuria, and hematuria, requiring multiple w/u for UTI. Cystoscopy and CT abdomen were unremarkable for any bladder/renal masses or malignancy. In the past few months, patient noted a ~20lb weight loss, generalized malaise/fatigue, decreased appetite, continued R flank pain, and some hair loss. Pt was prescribed with prednisone (unclear dose) after visit w/ PCP, which demonstrated an elevated Cr of 3.3 (Cr baseline 0.7-1.0 around end of 2017). Further lab work-up demonstrated +TAMIKA, +anti-Sm, anti-FLOW WORKER, and +anti-chromatin antibodies. Labs also demonstrated low C3 (unclear value), low C4 (unclear value) , with elevated Cr (3.2) (suggestive of lupus nephritis), and was subsequently admitted for concern for nephritis (lupus) vs vasculitis. On admission to [facility], Cr was 3.57 and was started on 1000mg methylprednisolone daily and mycophenolate 500 mg BID x3 days, which was transitioned to 60mg prednisone daily and cyclophosphamide 50mg BID after biopsy results. Patient's creatine peaked at 4.17 on 03/03. 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 Immunohistochemistry staining demonstrated granular, mesangial to capillary wall staining for IgA (trace), IgG (1-2+), IgM (1+), C3 (2+), C1q (trace), kappa (1+) and lambda (1-2+). All other stains were negative within the glomeruli and no significant extraglomerular staining. Entiat and lambda stain were equally shown throughout the tubulointerstitium. 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 Patient was also hypertensive on admission (SBP 170s) and was reduced to 130s after starting on amlodipine 10mg/daily. Bactrim was started for PCP prophylaxis. On admission to [facility], pt report no symptoms associated with lupus including malar rash, joint pain. ROS also negative for SOB, sinus drainage, hemoptysis, peripheral edema, blurry vision, confusion, N/V/F, pruritis Cr downtrended to 2.61. ROS is currently only positive for right flank pain, hx of hair loss and decreased appetite. PSHx: hx tubal ligation, lumpectomy, thyroidectomy Fam hx: no kidney disease social hx: never smoked, never drinks, no illicit drug use. lives with in [place] allergies: penicillins, iodinated contrast oral and IV home meds: levothyroxine 100 mcg PO qday Allergies: contrast (specific type unknown): Anaphylaxis penicillin: Unknown Medications Prior to Admission: levothyroxine 100 mcg (0.1 mg) oral tablet: 1 tab(s) orally once a day. Objective: Objective Information: T PRBPSpO2 [id number]/94811% Date/Time03/08 14: 14: 14: 14: 14:45 Range(36.1C - 36.3C ) (81 - 86 ) (18 - 18 ) (117 - 126 )/ (67 - 71 ) (97% - 100% ) ---- Intake and Output ----- Mn/Dy/Year TimeIntakeOutcrownpoint healthcare facilityNet Mar 09, 2019 6:00 [id number] Mar 08, 2019 10:00 [id number] The Intake and Output Totals for the last 24 hours are: IntakeOutputNet [id number] Physical Exam: Constitutional: Well developed, awake/alert/oriented x3, no distress, alert and cooperative Eyes: PERRL, EOMI, clear sclera ENMT: mucous membranes moist, no apparent injury, no lesions seen Head/Neck: Neck supple, no apparent injury, No JVD, trachea midline, no bruits Respiratory/Thorax: Patent airways, CTAB, normal breath sounds with good chest expansion, thorax symmetric Cardiovascular: Regular, rate and rhythm, no murmurs, 2+ equal pulses of the extremities, normal S 1and S 2 Gastrointestinal: Nondistended, soft, non-tender, no rebound tenderness or guarding, no masses palpable, no organomegaly, +BS, no bruits Musculoskeletal: ROM intact, no joint swelling, normal strength Extremities: normal extremities, no cyanosis edema, contusions or wounds, no clubbing Neurological: alert and oriented x3, intact senses, motor, response and reflexes, normal strength Psychological: Appropriate mood and behavior Skin: Warm and dry, no lesions, no rashes Medications: Medications: Continuous Medications ------ No continuous medications are active Scheduled Medications ------ 1. amLODIPine (NORVASC): 10 mg Oral Daily 2. Levothyroxine: 100 microgram(s) Oral Daily 3. predniSONE: 60 mg Oral Every 24 Hours 4. Sulfamethoxazole 800 mg - Trimethoprim 160 m tablet(s) Oral Schedule> PRN Medications ------ 1. Dextrose 50% in Water Injectable: 25 gram(s) IntraVenous Push Every 15 Minutes 2. Dextrose 50% in Water Injectable: 12.5 gram(s) IntraVenous Push Every 15 Minutes 3. Glucagon Injectable: 1 mg IntraMuscular Every 15 Minutes 4. LORazepam: 0.5 mg Oral Every 8 Hours Recent Lab Results: Results: I have reviewed these laboratory results: Urinalysis 08-Mar-2019 17:46:00 ResultValue Color, Urine YELLOW Reference Range: STRAW,YELLOW Appearance, Urine HAZY Specific Camino, Urine 1.008 pH, Urine 5.0 Protein, Urine 100 (2+) A Glucose, Urine >=500 (3+) A Blood, Urine LARGE (3+) A Ketones, Urine NEGATIVE Bilirubin, Urine NEGATIVE Urobilinogen, Urine <2.0 Nitrite, Urine NEGATIVE Leukocyte Esterase, Urine NEGATIVE Urinalysis, Microscopic 08-Mar-2019 17:46:00 ResultValue White Cells 10 A Red Blood Cells 56 A Epithelial Cells, Squamous 1 Bacteria, Urine 1+ A Sodium, Urine Spot 08-Mar-2019 17:46:00 ResultValue Sodium Urine Spot 33 Sodium/Creat Ratio 68 Creatinine, Urine Spot 48.8 Complete Blood Count + Differential 08-Mar-2019 13:00:00 ResultValue White Blood Cell Count 16.1 H Nucleated Erythrocyte Count 0.0 Red Blood Cell Count 3.05 L HGB 9.3 L HCT 28.3 L MCV 93 MCHC 32.9 PLT 256 RDW-CV 16.1 H Neutrophil % 85.5 Immature Granulocytes % 3.7 H Lymphocyte % 3.0 Monocyte % 7.5 Eosinophil % 0.0 Basophil % 0.3 Neutrophil Count 13.74 H Lymphocyte Count 0.49 L Monocyte Count 1.21 H Eosinophil Count 0.00 Basophil Count 0.05 Comprehensive Metabolic Panel 08-Mar-2019 13:00:00 ResultValue Glucose, Serum 116 H NA 140 K 4.0 CL 102 Bicarbonate, Serum 26 Anion Gap, Serum 16 BUN 87 H CREAT 2.68 H GFR-Non 18 A GFR- 22 A Calcium, Serum 8.9 ALB 3.2 L ALKP 46 T Pro 6.4 T Bili 0.7 Alanine Aminotransferase, Serum 15 Aspartate Transaminase, Serum 11 PT + INR, Plasma 08-Mar-2019 13:00:00 ResultValue Prothrombin Time, Plasma 10.9 International Normalized Ratio, Plasma 1.0 Sedimentation Rate, Erythrocyte 25-Tom-2019 13:00:00 ResultValue Sedimentation Rate, Erythrocyte 33 H C Reactive Protein, Serum 08-Mar-2019 13:00:00 ResultValue C Reactive Protein, Serum 0.66 Assessment and Plan: Assessment: Ms. 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 Nephritis v ANCA vasculitis (or concurrent) SLE nephritis: low C3, C4, +TAMIKA, +anti-SM, +anti-FLOW WORKER, +anti-chromatin ANCA: +ANCA, +PR3 - Prophylaxis: Bactrim, PV13 Vaccine - Autoimmune labs (ANCA reflex to MPO, PR3, TAMIKA reflex LUIS) - Transfer of medical records regarding labs from [facility] - CBC - CXR (evaluation for c-ANCA disease) 03/08 - Renal and Rheumatology on board - Prednisone 60 mg/daily (held cyclosporine per rheum recs for now, may consider rituximab) - Evaluation for plasmapheresis (no need at this time per renal) Chronic issues: Hypothyroid - Home dose levo HTN - Amlodipine 10mg daily Signatures/Attestation/Cer tification: Note Completion: Medical Student AttestationI, or a resident under my supervision, was present with the medical student who participated in the documentation of this note. I have personally seen and examined the patient and performed the medical decision-making components. I have reviewed the medical student documentation and/or resident documentation and verified the findings in the note as written with additions or exceptions as stated in the body of this note. I personally evaluated the patient [id number] Comments/ Additional Findings Ms. 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 Given her history of malignancies and rapid development of autoantibodies without a significant rheumatologic prodrome, underlying malignancy driving this autoimmune process must be investigated. Appreciate renal and rheumatology recommendations Will work to get more complete records from transferring facility. Will engage renal and rheum in multidisciplinary discussion in fine tuning immunosuppressive agents. Will treat with MMF and prednisone for the time being while we obtain pathology slides for review here at . Attending Provider Inpatient Certification StatementI certify this patients need for inpatient care based on the above documentation including; the order to admit as inpatient, the anticipated length of stay, diagnosis, problem list and plan of care, and discharge plan. Admission Order - View OnlyCurrent Admission Order. [place] [facility] [place] Diagnosis, M32.14 Lupus nephritis Admitting Service, General Internal Medicine Sunny Chen Electronic Signatures: Romero Montilla (MED STUD) (Signed 09-Mar-2019 06:35) Authored: History of Present Illness, Comorbidities, Allergies, Medications Prior to Admission, Objective, Assessment and Plan, Signatures/Attestation/Cer tification Kaleb Duenas) (Signed 09-Mar-2019 15:48) Authored: Signatures/Attestation/Cer tification Co-Signer: History of Present Illness, Comorbidities, Objective, Assessment and Plan, Signatures/Attestation/Cer tification Last Updated: 09-Mar-2019 15:48 by Kaleb Duenas) Normal [facility] PT/INRon 03-08-2019 INR Coag (PPP) [Relative time] 1.0 {INR} Normal 0.9 - 1.1 [facility] Comment on above: Performed By: #### P TINR #### [facility] [id number] [place] [address] PT Coag (PPP) [Time] 10.9 s Normal 9.7 - 12.7 [facility] Comment on above: Performed By: #### P TINR #### [facility] [address] [place] [address] Patient Profile - Adult v2on 03-08-2019 Patient Profile - Adult v2 Profile: Initial Info: How to be AddressedSusan Spoken Language PreferredEnglish Are you currently using the Personal Electronic Health Record or [facility] Are you interested in learning more about [facility] for the management of your healthdeclined Stated Reason for Admissionkept losing weight and nothing tasted good and pain in the kidney Primary Contact Name and NumberDajeanne Wheatley [phone] Other Contact Names and NumbersFelipe Wheatley(son) [phone] katrin khan (daughter) [phone] [facility] Patient Belongingsremains with patient Patient Belongings Remaining with Patientclothing; purse/wallet; jewelry; vision aids Medications Brought to Hospitalno Wants Family/Rep Notified of Admissionyes, primary contact General Health: Weight in kg52.6 kilogram(s) Weight in ihg452 pound(s) Height in feet5 feet Height in inches3 inch(es) Height in cm160 centimeter(s) BMI (kg/m2)20.546 square meter Weight Methodactual (measured) Scale Typebed Height Methodstated RSP Based Care: How would you like to participate in your carefully What is the number one concern for you during this hospitalizationworried about the kidney What is the most important thing we can do to support you during this hospitalizationdischarge me healthy Is there anything we need to know to best care for youno Substance: Current or Former Substance Use never: Cigarette/Tobacco, e-Cigarette/Vaping, Alcohol, Street Drugs Health Mgmt: Symptoms/Conditions Managed at [facility] Relationship/Environ: Primary Source of Support/Comfortspouse Lives Withspouse Living Arrangementshouse Resource/Environmental Concernsnone Anticipated Transition T[facility]leep[facility] Services Anticipated at Transitionnon Significant IndicatorsComplete Information Review: Allergies, Home Meds and Significant Events have been Reviewed and Verified with Patient/Familyyes ALLERGY, INTOLERANCE, ADVERSE EVENT: Allergies: contrast (specific type unknown): Contrast, Anaphylaxis, Active penicillin: Drug, Unknown, Active Problem List: 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 SEDIMENTATION RATE, ERYTHROC YTEon 03-08-2019 SEDIMENTATION RATE, ERYTHROCYTE 33 mm/h High 0 - 30 [facility] Comment on above: Performed By: #### E SRWS #### [facility] [id number] [place] [address] SODIUM, URINE SPOTon 019 CREATININE,URINE 48.8 mg/dL Normal 20.0 - 320.0 [facility] Comment on above: Performed By: #### S ODS2 ####[id number] [place] [address] Sodium (U) [Moles/Vol] 33 mmol/L Normal Not Established [facility] Comment on above: Performed By: #### S ODS2 ####[id number] [place] [address] SODIUM/CREAT RATIO 68 mmol/g Creat Normal Not Established [facility] Comment on above: Performed By: #### S ODS2 ####[id number], [place] TH CHEST 2 VIEW PA AND LATon 03-08-2019 TH CHEST 2 VIEW PA AND LAT Patient Name: BHUMIKA WHEATLEY STUDY: TH CHEST 2 VIEW PA AND LAT; 03/08/2019 6:55 pm INDICATION: work up of c-ANCA vasculitis. COMPARISON: None. ACCESSION NUMBER(S): [id number] ORDERING CLINICIAN: SUNNY VICENTE FINDINGS: CARDIOMEDIASTINAL SILHOUETTE: Cardiomediastinal silhouette within normal limits. Aortic and coronary artery calcifications and correlate with coronary artery disease risk factors. LUNGS: There is minimal right basilar atelectasis. No focal airspace disease. ABDOMEN: No remarkable upper abdominal findings. BONES: No acute osseous changes. IMPRESSION: 1. Minimal right basilar atelectasis but no active airspace disease. Correlate with coronary artery disease risk factors. Electronically signed by: Caprice ESTRADA MD Normal [facility] THYROXINE,FREEon 03-08-2019 THYROXINE,FREE 1.85 ng/dL High 0.78 - 1.48 [facility] Comment on above: Result Comment: Thyr oxine Free testing is performed using different testing methodology at [facility] than at other [facility]. Direct result comparisons should only be made within the same method. . Patients receiving more than 5 mg/day of biotin may have interference in test results. A sample should be taken no sooner than eight hours after previous dose. Contact [phone] for additional information. Performed By: #### T 4FRE ####[id number] [place] [address] TSH WITH REFLEX TO FREE T4 I F ABNORMALon 03-08-2019 TSH Qn 0.15 m[IU]/L Low 0.44 - 3.98 [facility] Comment on above: Result Comment: TSH testing is performed using different testing methodology at [facility] than at other [facility]. Direct result comparisons should only be made within the same method. . Patients receiving more than 5 mg/day of biotin may have interference in test results. A sample should be taken no sooner than eight hours after previous dose. Contact [phone] for additional information. Performed By: #### T HYDS ####[id number] [place] [address] UA MICROSCOPICon 03-08-2019 BACTERIA 1+ /HPF Abnormal [facility] Comment on above: Performed By: #### U AMIC ####[id number] [place] [address] RBC 56 /HPF Abnormal 0-5 [facility] Comment on above: Performed By: #### U AMIC ####[id number] [place] [address] SQUAMOUS EPITH. CELLS 1 /HPF Normal [facility] Comment on above: Performed By: #### U AMIC ####[id number] [place] [address] WBC 10 /HPF Abnormal 0-5 [facility] Comment on above: Performed By: #### U AMIC ####[id number] [place] [address] URINALYSISon 03-08-2019 Appearance (U) HAZY Normal CLEAR [facility] Comment on above: Performed By: #### U A ####[id number] [place] [address] Bilirubin (U) [Mass/Vol] Negative Normal NEGATIVE [facility] Comment on above: Performed By: #### U A ####[id number] [place] [address] BLOOD LARGE (3+) Abnormal NEGATIVE [facility] Comment on above: Performed By: #### U A ####[id number] [place] [address] Color (U) YELLOW Normal STRAW,YELLOW [facility] Comment on above: Performed By: #### U A ####[id number] [place] [address] Glucose [Mass/Vol] >=500 (3+) Abnormal NEGATIVE [facility] Comment on above: Performed By: #### U A ####[id number] [place] [address] Ketones Ql (U) Negative Normal NEGATIVE [facility] Comment on above: Performed By: #### U A ####[id number] [place] [address] Leukocyte esterase Test strip Ql (U) Negative Normal NEGATIVE [facility] Comment on above: Performed By: #### U A ####[id number] [place] [address] Nitrite Ql (U) Negative Normal NEGATIVE [facility] Comment on above: Performed By: #### U A ####[id number] [place] [address] pH (Bld) 5.0 Normal 5.0 - 8.0 [facility] Comment on above: Performed By: #### U A ####[id number] [place] [address] Protein (U) [Mass/Vol] 100 (2+) Abnormal NEGATIVE [facility] Comment on above: Performed By: #### U A ####[id number] [place] [address] Specific gravity (U) [Rel density] 1.008 Normal 1.005 - 1.035 [facility] Comment on above: Performed By: #### U A ####[id number] [place] [address] Urobilinogen Qn (U) <2.0 Normal 0.0 - 1.9 [facility] Comment on above: Performed By: #### U A ####[id number] [place] [address] CNOVon 10-19-2018 CNOV Office Visit (RADTSA ) -- BHUMIKA WHEATLEY ([id number]) 1950 F Date Time Provider Department 10/19/18 10:30 AM MAYI ADAMS During your visit today, we recorded the following information about you: Temperature Pulse Respiration Blood pressure 98.1 degrees 95/minute 16/minute 151/74 Weight 58.1 kg Mayi Adams MD 10/19/2018 10:50 AM Signed Radiation Oncology - Follow Up Note PATIENT NAME: Bhumika Wheatley PATIENT DIAGNOSIS: Stage I (T1N0M0) infiltrating ductal carcinoma of the right breast; status post lumpectomy and right axillary lymph node dissection; status post radiation therapy to the right breast in 1992 ? INTERVAL HISTORY: Mrs. Wheatley is doing very well. Her appetite is good and she is maintaining her weight. ALLERGIES No Known Allergies MEDICATIONS: levothyroxine (SYNTHROID) 100 mcg tablet RPHYSICAL EXAM: VS: BP 151/74 Pulse 95 Temp 36.7 ?C (98.1 ?F) Resp 16 Wt 58.1 kg (128 lb) KPS: 90 General Appearance: Alert and oriented. No acute distress. HEENT: NCAT. Sclera anicteric. PERRL. EOMI. Neck: Normal ROM. No palpable cervical or supraclavicular adenopathy. Chest: No respiratory distress. Lungs clear to auscultation bilaterally. Heart: Regular rate and rhythm. Abdomen: Soft. Nontender. Nondistended. Musculoskeletal: No edema. Normal ROM in extremities. No bone or spine tenderness. Neuro: Strength intact and symmetric. Sensation intact. CN II-XII intact. Gait normal. No focal deficits. Skin: No rashes noted Lymphatics: No palpable lymphadenopathy. Breasts: No masses are palpable. ? ASSESSMENT AND PLAN: There is no evidence of active disease at this time. Her mammogram from 10/12/2018 showed no evidence of malignancy. I will see her again in one year for follow-up examination. ? Signed by: Mayi Adams M.D., RUSS ? cc: Espinoza Melo MD [address] [place] [address] [place] [address] ? Mayi Adams MD [facility] [address] [place] [address] ? This note was dictated with Dragon Naturally Speaking and may contain some grammatical errors due to limitations of the software. Kitty Dent MA, was present in the examination room throughout the encounter. Referring Provider: MAYI ADAMS [[id number]] Allergies As of Date: 10/19/2018 (No Known Allergies) Date Reviewed: 10/19/2018 Reviewed by: Kitty (Family Practice Nurse Practitioner) ROWDY Dent - Fully Assessed Reason for Visit: Radiotherapy On-treatment Visit [1722] Primary Visit Diagnosis:History of breast cancer [Z85.3] Order(s):[facility] [4279180] Order #: [id number] FUTURE Prescriptions as of 10/19/2018 Sig: LEVOTHYROXINE 100 MCG TABLET Problem List As Of Date 10/19/2018 Noted Resolved History of breast cancer [Z85.3] INVALID FOR* Medications Discontinued During This Encounter levothyroxine (SYNTHROID) 112 mcg ta* 5 09/28/2017 10/19/2018 Class: Historical Med Sig: TAKE 1 TABLET BY MOUTH EVERY MORNING ON AN EMPTY STOMACH Disc: Changing Therapy/Dosage Form Disposition: Return in about 1 year (around 10/20/2019). Follow-up and Disposition History Recorded Encounter Status:Closed by MAYI ADAMS MD on 10/19/18 [facility] PROGRESSon 10-19-2018 Protein mass conc HNO ID: [id number] Author: Mayi Adams Service: ? Author Type: Physician Type: Progress Notes Filed: 10/19/2018 10:50 AM Note Text: Radiation Oncology - Follow Up Note PATIENT NAME: Bhumika Wheatley PATIENT DIAGNOSIS: Stage I (T1N0M0) infiltrating ductal carcinoma of the right breast; status post lumpectomy and right axillary lymph node dissection; status post radiation therapy to the right breast in 1992 ? INTERVAL HISTORY: Mrs. Wheatley is doing very well. Her appetite is good and she is maintaining her weight. ALLERGIES No Known Allergies MEDICATIONS: levothyroxine (SYNTHROID) 100 mcg tablet RPHYSICAL EXAM: VS: BP 151/74 Pulse 95 Temp 36.7 ?C (98.1 ?F) Resp 16 Wt 58.1 kg (128 lb) KPS: 90 General Appearance: Alert and oriented. No acute distress. HEENT: NCAT. Sclera anicteric. PERRL. EOMI. Neck: Normal ROM. No palpable cervical or supraclavicular adenopathy. Chest: No respiratory distress. Lungs clear to auscultation bilaterally. Heart: Regular rate and rhythm. Abdomen: Soft. Nontender. Nondistended. Musculoskeletal: No edema. Normal ROM in extremities. No bone or spine tenderness. Neuro: Strength intact and symmetric. Sensation intact. CN II-XII intact. Gait normal. No focal deficits. Skin: No rashes noted Lymphatics: No palpable lymphadenopathy. Breasts: No masses are palpable. ? ASSESSMENT AND PLAN: There is no evidence of active disease at this time. Her mammogram from 10/12/2018 showed no evidence of malignancy. I will see her again in one year for follow-up examination. ? Signed by: Mayi Adams M.D., FACRO ? cc: Espinoza Melo MD [address] [place], [place] [address] [place] [address] ? Mayi [facility] [address] [place] [address] ? This note was dictated with Alen Naturally Speaking and may contain some grammatical errors due to limitations of the software. Ktity Dent MA, was present in the examination room throughout the encounter. Normal [facility] Vital Signs Date Time Vital Sign Value Performing Clinician Facility 08-07-2023 12:07-0500 Body temperature 98.1 [degF] Stuart Urias MD Work Phone: [facility] 08-07-2023 12:07-0500 Diastolic blood pressure 56 mm[Hg] Stuart Urias MD Work Phone: [facility] 08-07-2023 12:07-0500 Heart rate 68 /min Stuart Urias MD Work Phone: [facility] 08-07-2023 12:07-0500 Respiratory rate 16 /min Stuart Urias MD Work Phone: [facility] 08-07-2023 12:07-0500 SaO2% (BldA) [Mass fraction] 94 % Stuart Urias MD Work Phone: [facility] 08-07-2023 12:07-0500 Systolic blood pressure 120 mm[Hg] Stuart Urias MD Work Phone: [facility] 08-03-2023 23:15-0500 Body height 160 cm Stuart Urias MD Work Phone: [facility] 08-03-2023 23:15-0500 Body mass index (BMI) [Ratio] 23.12 kg/m2 Stuart Urias MD Work Phone: [facility] 08-03-2023 23:15-0500 Body weight 59.2 kg Stuart Urias MD Work Phone: [facility] 05-05-2023 11:20-0400 Body height 160.02 cm Ania Arnaldo Other [facility] Other 05-05-2023 11:20-0400 Body mass index (BMI) [Ratio] 24.8 kg/m2 Ania Arnaldo Other [facility] Other 05-05-2023 11:20-0400 Body temperature 96.5 [degF] Ania Arnaldo Other [facility] Other 05-05-2023 11:20-0400 Body weight 63.5 kg Ania Arnaldo Other [facility] Other 05-05-2023 11:20-0400 Diastolic blood pressure 62 mm[Hg] Ania Arnaldo Other [facility] Other 05-05-2023 11:20-0400 Respiratory rate 18 /min Ania Arnaldo Other [facility] Other 05-05-2023 11:20-0400 SaO2% (BldA) [Mass fraction] 99 % Ania Arnaldo Other [facility] Other 05-05-2023 11:20-0400 Systolic blood pressure 101 mm[Hg] Ania Arnaldo Other [facility] Other 12-27-2022 15:40-0400 Body height 160.02 cm Ania Arnaldo Other [facility] Other 12-27-2022 15:40-0400 Body mass index (BMI) [Ratio] 26.18 kg/m2 Ania Arnaldo Other [facility] Other 12-27-2022 15:40-0400 Body temperature 97.1 [degF] Ania Arnaldo Other [facility] Other 12-27-2022 15:40-0400 Body weight 67.04 kg Ania Arnaldo Other [facility] Other 12-27-2022 15:40-0400 Diastolic blood pressure 79 mm[Hg] Ania Arnaldo Other [facility] Other 12-27-2022 15:40-0400 Respiratory rate 18 /min Ania Arnaldo Other [facility] Other 12-27-2022 15:40-0400 SaO2% (BldA) [Mass fraction] 96 % Ania Arnaldo Other [facility] Other 12-27-2022 15:40-0400 Systolic blood pressure 132 mm[Hg] Ania Arnaldo Other [facility] Other 05-19-2022 10:40-0400 Body height 160.02 cm Ania Arnaldo Other [facility] Other 05-19-2022 10:40-0400 Body mass index (BMI) [Ratio] 25.82 kg/m2 Ania Arnaldo Other [facility] Other 05-19-2022 10:40-0400 Body temperature 96.1 [degF] Ania Arnaldo Other [facility] Other 05-19-2022 10:40-0400 Body weight 66.13 kg Ania Arnaldo Other [facility] Other 05-19-2022 10:40-0400 Diastolic blood pressure 75 mm[Hg] Ania Arnaldo Other [facility] Other 05-19-2022 10:40-0400 Respiratory rate 18 /min Ania Arnaldo Other [facility] Other 05-19-2022 10:40-0400 SaO2% (BldA) [Mass fraction] 95 % Ania Arnaldo Other [facility] Other 05-19-2022 10:40-0400 Systolic blood pressure 134 mm[Hg] Ania Arnaldo Other [facility] Other 01-28-2022 11:00-0400 Body height 160.02 cm Ania Arnaldo Other [facility] Other 01-28-2022 11:00-0400 Body mass index (BMI) [Ratio] 26.82 kg/m2 Ania Arnaldo Other [facility] Other 01-28-2022 11:00-0400 Body temperature 96.7 [degF] Ania Arnaldo Other [facility] Other 01-28-2022 11:00-0400 Body weight 68.68 kg Ania Arnaldo Other [facility] Other 01-28-2022 11:00-0400 Diastolic blood pressure 85 mm[Hg] Ania Arnaldo Other [facility] Other 01-28-2022 11:00-0400 Respiratory rate 18 /min Ania Arnaldo Other [facility] Other 01-28-2022 11:00-0400 SaO2% (BldA) [Mass fraction] 98 % Ania Arnaldo Other [facility] Other 01-28-2022 11:00-0400 Systolic blood pressure 135 mm[Hg] Ania Arnaldo Other [facility] Other 09-29-2021 11:00-0500 Body height 160.02 cm Ania Arnaldo Other [facility] Other 09-29-2021 11:00-0500 Body mass index (BMI) [Ratio] 27.28 kg/m2 Ania Arnaldo Other [facility] Other 09-29-2021 11:00-0500 Body temperature 96.2 [degF] Ania Arnaldo Other [facility] Other 09-29-2021 11:00-0500 Body weight 69.85 kg Ania Arnaldo Other [facility] Other 09-29-2021 11:00-0500 Diastolic blood pressure 88 mm[Hg] Ania Arnaldo Other [facility] Other 09-29-2021 11:00-0500 Respiratory rate 18 /min Ania Arnaldo Other [facility] Other 09-29-2021 11:00-0500 SaO2% (BldA) [Mass fraction] 97 % Ania Arnaldo Other [facility] Other 09-29-2021 11:00-0500 Systolic blood pressure 141 mm[Hg] Ania Arnaldo Other [facility] Other 06-30-2021 11:00-0500 Body height 160.02 cm Ania Arnaldo Other [facility] Other 06-30-2021 11:00-0500 Body mass index (BMI) [Ratio] 26.85 kg/m2 Ania Arnaldo Other [facility] Other 06-30-2021 11:00-0500 Body temperature 96.2 [degF] Ania Arnaldo Other [facility] Other 06-30-2021 11:00-0500 Body weight 68.77 kg Ania Arnaldo Other [facility] Other 06-30-2021 11:00-0500 Diastolic blood pressure 72 mm[Hg] Ania Arnaldo Other [facility] Other 06-30-2021 11:00-0500 Respiratory rate 18 /min Ania Arnaldo Other [facility] Other 06-30-2021 11:00-0500 SaO2% (BldA) [Mass fraction] 96 % Ania Arnaldo Other [facility] Other 06-30-2021 11:00-0500 Systolic blood pressure 140 mm[Hg] Ania Arnaldo Other [facility] Other Encounters Encounter Date Encounter Type Care Provider Facility Start: 08-18-2023 End: 08-23-2023 ambulatory DORCAS MITCHELL [facility] Start: 08-17-2023 ambulatory ESPINOZA MELO [facility] Start: 08-16-2023 End: 08-23-2023 ambulatory SHANTI GORMAN [facility] Start: 08-13-2023 End: 08-23-2023 Emergency department patient visit [facility] Start: 08-13-2023 End: 08-23-2023 Evaluation and management of inpatient [facility] Start: 08-12-2023 End: 08-13-2023 ambulatory YESSY PACKER [facility] Start: 08-04-2023 End: 08-04-2023 Subsequent hospital visit by physician Harriet Goodman MD Work Phone: [facility] Start: 08-03-2023 End: 08-07-2023 Evaluation and management of inpatient ESPINOZA Espinal [facility] Start: 08-03-2023 End: 08-07-2023 Evaluation and management of inpatient Stuart Urias MD Work Phone: [facility] Comment on above: Syncope and collapse (Primary Dx) Start: 07-28-2023 End: 07-29-2023 ambulatory [facility] Start: 07-27-2023 End: 07-28-2023 ambulatory [facility] Start: 07-27-2023 End: 07-27-2023 Subsequent hospital visit by physician Harriet Goodman MD Work Phone: [facility] Start: 07-19-2023 End: 07-20-2023 ambulatory [facility] Start: 07-18-2023 End: 07-21-2023 ambulatory VY Espinal [facility] Start: 07-05-2023 End: 07-06-2023 ambulatory [facility] Start: 06-30-2023 End: 07-01-2023 ambulatory [facility] Start: 06-23-2023 End: 06-24-2023 ambulatory [facility] Start: 06-21-2023 End: 06-22-2023 ambulatory [facility] Start: 06-15-2023 ambulatory ESPINOZA Espinal [facility] Start: 2023 End: [facility]: 06-09-2023 End: 06-10-2023 ambulatory ESPINOZA Espinal [facility] Start: 05-17-2023 End: 05-17-2023 ambulatory Ania Arnaldo Other [facility] Other Start: 05-17-2023 Telephone encounter Ania Arnaldo [facility] Start: 05-13-2023 End: 05-16-2023 ambulatory AUNDREA MIXON [facility] Start: 05-11-2023 End: 05-11-2023 ambulatory Ania Arnaldo Other [facility] Other Start: 05-11-2023 Telephone encounter Ania Arnaldo [facility] Start: 05-10-2023 End: 05-11-2023 ambulatory ESPINOZA Espinal [facility] Start: 05-05-2023 End: 05-05-2023 ambulatory Ania Arnaldo Other [facility] Other Start: 05-05-2023 Office outpatient visit 25 minutes Ania Arnaldo [facility] Start: 04-27-2023 End: 04-28-2023 ambulatory ESPINOZA Espinal [facility] Start: 04-27-2023 End: 04-27-2023 Subsequent hospital visit by physician Espinoza Melo MD Work Phone: [facility] Comment on above: HERLINDA (acute kidney in jury) ([facility]); Lupus nephritis ([facility]) Start: 04-21-2023 End: 04-21-2023 ambulatory Ania Arnaldo Other [facility] Other Start: 04-21-2023 Telephone encounter Ania Arnaldo [facility] Start: 04-16-2023 End: 04-20-2023 Evaluation and management of inpatient ESPINOZA Espinal [facility] Start: 12-27-2022 End: 12-27-2022 ambulatory Ania Arnaldo Other [facility] Other Start: 12-27-2022 Office outpatient visit 15 minutes Ania Arnaldo [facility] Start: 12-16-2022 End: 12-17-2022 ambulatory ANIA ARNALDO Facility:[facility] Start: 09-16-2022 End: 09-17-[address] ESPINOZA MELO . Facility:[facility] Start: 08-17-2022 End: 08-18-2022 ambulatory ANIA ARNALDO Facility:[facility] Start: 05-19-2022 End: 05-19-2022 ambulatory Ania Arnaldo Other [facility] Other Start: 05-19-2022 Office outpatient visit 15 minutes Ania Arnaldo [facility] Start: 05-10-2022 End: 05-11-2022 ambulatory ANIA ARNALDO Facility:[facility] Start: 01-28-2022 End: 01-28-2022 ambulatory Ania Arnaldo Other [facility] Other Start: 01-28-2022 Office outpatient visit 15 minutes Ania Arnaldo [facility] Start: 01-18-2022 End: 01-19-[address] ESPINOZA MELO . Facility:[facility] Start: 09-29-2021 End: 09-29-2021 ambulatory Ania Arnaldo Other [facility] Other Start: 09-29-2021 Office outpatient visit 25 minutes Ania Arnaldo [facility] Start: 06-30-2021 End: 06-30-2021 ambulatory Ania Arnaldo Other [facility] Other Start: 06-30-2021 Office outpatient visit 15 minutes Ania Arnaldo [facility] Start: 10-19-2018 End: 10-24-2018 Patient encounter procedure [facility] Procedures Date Procedure Procedure Detail Performing Clinician Start: 08-06-2023 BASIC METABOLIC PANE L W/ REFLEX TO MG FOR LOW K Patricia Sam MD Work Phone: Start: 08-06-2023 Blood count complete auto&auto difrntl wbc Patricia Sam MD Work Phone: Start: 08-05-2023 Mri brain brain stem w/o w/contrast material Bart Stock MD Work Phone: Start: 08-05-2023 BASIC METABOLIC PANE L W/ REFLEX TO MG FOR LOW K Patricia Sam MD Work Phone: Start: 08-05-2023 Blood count complete auto&auto difrntl wbc Patricia Sam MD Work Phone: Start: 08-04-2023 Drug assay valproic dipropylacetic acid total Bart Stock MD Work Phone: Start: 08-04-2023 PREVIOUS SPECIMEN Marlene Stock MD Work Phone: Start: 08-04-2023 EEG Patricia Sam MD Work Phone: Start: 08-04-2023 Quantitation drug no t elsewhere specified Yesy Arzate MD Work Phone: Start: 08-04-2023 Pulmonary ventilatio n & perfusion imaging Farhan Giles DO Work Phone: Start: 08-04-2023 COVID-19, RAPID Sonya almonte MD Work Phone: Start: 08-04-2023 BASIC METABOLIC PANE L W/ REFLEX TO MG FOR LOW K Patricia Sam MD Work Phone: Start: 08-04-2023 Blood count complete auto&auto difrntl wbc Patricia Sam MD Work Phone: Start: 08-03-2023 Ct cervical spine w/ o contrast material Farhan Giles DO Work Phone: Start: 08-03-2023 Ct head/brain w/o co ntrast material Farhan Giles DO Work Phone: Start: 08-03-2023 Assay of troponin quantitative Farhan Giles DO Work Phone: Start: 08-03-2023 Drug assay valproic dipropylacetic acid total Farhan Giles DO Work Phone: Start: 08-03-2023 End: 08-03-2023 Ecg routine ecg w/least 12 lds w/i&r Farhan Giles DO Work Phone: Start: 08-03-2023 Radiologic exam ches t 2 views Farhan Giles DO Work Phone: Start: 08-03-2023 Comprehensive metabo lic panel Farhan Giles DO Work Phone: Start: 04-27-2023 Basic metabolic pane l calcium total Espinoza Melo MD Work Phone: Plan of Treatment Date Care Activity Detail Author Start: 04-16-2028 Lipid panel Lipids [facility] [employer] Start: 08-06-2024 GFR test (Diabetes, CKD 3-4, OR last GFR 15-59) GFR test (Diabetes, CKD 3-4, OR last GFR 15-59) [facility] Start: 05-10-2024 GFR test (Diabetes, CKD 3-4, OR last GFR 15-59) GFR test (Diabetes, CKD 3-4, OR last GFR 15-59) [facility] Start: 04-20-2024 GFR test (Diabetes, CKD 3-4, OR last GFR 15-59) GFR test (Diabetes, CKD 3-4, OR last GFR 15-59) [facility] Start: 04-16-2024 Hemoglobin A1c measurement A1C test (Diabetic or Prediabetic) [facility] [employer] Start: 10-04-2023 End: 10-04-2023 Patient encounter procedure 10/04/2023 4:00 PM EST Office Visit [facility] [address] [place] [address] Harriet Goodman MD [address] [place] [address] follow up [facility] Comment on above: follow up Start: 08-11-2023 End: 08-11-2023 Patient encounter procedure 08/11/2023 10:00 AM EST Appointment [facility] [address] [place], [place] [address] [place] [address] Harriet Goodman MD [address] [place] [address] Krystian Mathis SLP [facility] Start: 08-10-2023 End: 08-10-2023 Patient encounter procedure 08/10/2023 2:00 PM EST Appointment [facility] [address] [place] [id number] Harriet Goodman MD [address] [place] [address] Krystian Mathis SLP [facility] Start: 07-28-2023 End: 07-28-2023 Patient encounter procedure 07/28/2023 11:00 AM EST Appointment [facility] [address] [place] [id number] Harriet Goodman MD [address] [place] [address] Krystian Mathis SLP [facility] Start: 05-06-2023 End: 05-06-2023 Patient encounter procedure 05/06/2023 1:20 PM EDT Office Visit [facility] Neurology Specialist [address] [place] [id number] aBrt Stock MD [address] [place] [address] Liang saw patient jessica [facility] Comment on above: Liang saw patient bl eed Start: 04-16-2023 Annual Wellness Visi t (AWV) Annual Wellness Visit (AWV) [facility] [employer] Start: 03-15-2023 Influenza vaccination Flu vaccine (# 1) [facility] [employer] Start: 10-25-2020 Screening for malignant neoplasm of breast Breast cancer screen [facility] [employer] Start: 03-10-2020 Pneumococcal 65+ yea rs Vaccine (2 - PCV) Pneumococcal 65+ years Vaccine (2 - PCV) [facility] Start: 2010 Respiratory Syncytia l Virus (RSV) age 60 yrs+ (1 - 1-dose 60+ series) Respiratory Syncytial Virus (RSV) age 60 yrs+ (1 - 1-dose 60+ series) [facility] Start: 2010 Respiratory Syncytia l Virus (RSV) or age 60 yrs+ (1 - 1-dose 60+ series) Respiratory Syncytial Virus (RSV) or age 60 yrs+ (1 - 1-dose 60+ series) [facility] [employer] Start: 2005 Screening for osteoporosis DEXA (modify frequency per FRAX score) [facility] Start: 2000 Screening for malignant neoplasm of breast Breast cancer screen [facility] Start: 2000 Shingles vaccine (1 of 2) Shingles vaccine (1 of 2) [facility] Start: 1995 Screening for malignant neoplasm of colon [facility] Start: 1969 DTaP/Tdap/Td vaccine (1 - Tdap) DTaP/Tdap/Td vaccine (1 - Tdap) [facility] Start: 1968 Hepatitis C screening Hepatitis C sc reen [facility] Start: 1962 Depression Screen Depression Screen [facility] Start: 1950 COVID-19 Vaccine (#1) COVID-19 Vacci ne (#1) [facility] [employer] EKG 12 Lead EKG 12 Lead ECG STAT 08/03/2023 4:00 PM EST [facility] EKG 12 Lead EKG 12 Lead ECG Routine 08/03/2023 4:14 PM EST [employer] Work Phone: Oxygen therapy [Minimum Data Set] Initiate Oxygen Therapy Protocol Respiratory Care Routine As Needed until discontinued starting 08/03/2023 [employer] Comment on above: As Needed until disc ontinued starting 08/03/2023 End: 08-04-2023 SPECIMEN REJECTION [employer] Comment on above: Once for 1 Occurrenc es starting 08/04/2023 until 08/04/2023 End: 08-05-2023 Vascular duplex carotid bilateral [employer] Work Phone: Comment on above: One Time for 1 Occur rences starting 08/05/2023 until 08/05/2023 Payers Date Payer Category Payer Medicare [id number] 1959 Medicare [id number] 2. [id number] 1950 Unknown [id number] 2.16.84 0.1.000511.3.579.2.593 1950 Unknown [id number] 2.16.84 0.1.912083.3.579.2.593 1950 Unknown [id number] 2.16.84 0.1.928720.3.579.2.593 1950 Unknown [id number] 2.16.84 0.1.817346.3.579.2.593 1950 Unknown [id number] 2.16.84 0.1.647401.3.579.2.593 1950 Unknown [id number] 2.16.84 0.1.710565.3.579.2.593 1950 Unknown [id number] 2.16.8 40.1.005468.3.579.2.176 1950 Unknown [id number] 2.16.8 40.1.216187.3.579.2.176 1950 Unknown [id number] 2.16. 840.1.851926.3.579.2.175 1950 Unknown [id number] 2.16. 840.1.281095.3.579.2.175 1950 Unknown [id number] 2.16. 840.1.572958.3.579.2.175 1950 Unknown [id number] 2.16. 840.1.390544.3.579.2.175 1950 Unknown [id number] 2.16. 840.1.678523.3.579.2.175 1950 Unknown [id number] 2.16. 840.1.301041.3.579.2.175 1950 Unknown [id number] 2.16. 840.1.166141.3.579.2.175 1950 Unknown [id number] 2.16. 840.1.745124.3.579.2.175 1950 Unknown [id number] 2.16. 840.1.275030.3.579.2.175 1950 Unknown [id number] 2.16. 840.1.031239.3.579.2.175 1950 Unknown [id number] 2.16. 840.1.425046.3.579.2.175 1950 Unknown [id number] 2.16. 840.1.350005.3.579.2.175 1950 Unknown [id number] 2.16. 840.1.018979.3.579.2.175 1950 Unknown [id number] 2.16. 840.1.304977.3.579.2.175 1950 Unknown [id number] 2.16. 840.1.515946.3.579.2.175 1950 Unknown [id number] 2.16.84 0.1.111100.3.579.2.1286 1950 Unknown [id number] 2.16.84 0.1.033209.3.579.2.1286 1950 Unknown [id number] 2.16.84 0.1.340234.3.579.2.1286 1950 Unknown [id number] 2.16.84 0.1.395447.3.579.2.1286 1950 Unknown [id number] 2.16.84 0.1.180891.3.579.2.1286 1950 Unknown [id number] 2.16.84 0.1.260297.3.579.2.1286 Medicare [id number] 2.16.8 40.1.491394.19 Social History Date Type Detail Facility Unknown if ever smoked [facility] Other Start: 07-20-2023 End: 08-03-2023 Sex Assigned At [facility] Other Start: 04-18-2023 Tobacco smoking status [facility] Tobacco smoking consumption unknown [employer] Start: 1950 Sex Assigned At Not on file [facility] Start: 05-10-2023 Tobacco smoking status [facility] Ex-smoker [employer] End: 04-14-2023 History of tobacco use Current smoker [employer] End: 04-14-2023 History of tobacco use Cigarette Smoker [employer] Start: 05-10-2023 Tobacco use and exposure Smokeless tobacco non-user [employer] Start: 07-20-2023 End: 08-03-2023 Alcohol intake Lifetime non-drinker (finding) [facility] Start: 07-20-2023 End: 08-03-2023 History of Social function [employer] NEGATED: Highlighted rowStart: BONILLAF History of tobacco use Passive smoker [employer] Clinical Notes 11-03-2020 to 08-07-2023 Discharge Instr - Dee Jones MD - 08/07/2023 12:06 PM Yesy Fonseca MD - 08/06/2023 3:56 PM Maikel Tomlinson, PT - 08/06/2023 2:47 PM Ellen Castaneda, OT - 08/06/2023 2:26 PM EST Note Date & Type Note Facility 08-07-2023 Hospital Discharg Varinder Lino MD - 08/07/2023 3:20 PM EST Continuity of Care Form Patient Name: Bhumika Wheatley : 1950 Admit date: 08/03/2023 Discharge date: 08/07/23 Code Status Order: Full Code Advance Directives: Admitting Physician: Bart Stock MD PCP: Espinoza Melo MD Discharging Nurse: Discharging Hospital Unit/Room#: 0145/0145-01 Discharging Unit Phone Number: Emergency Contact: Extended Emergency Contact Information Primary Emergency Contact: Corina Wheatley Mobile Relation: Spouse Secondary Emergency Contact: FELIPE WHEATLEY Relation: Child [employer] Founder needed? No Past Surgical History: Past Surgical History: Procedure Laterality Date THYROID SURGERY Immunization History: Immunization History Administered Date(s) Administered COVID-19, MODERNA, (2022- formula), (age 12y+), IM, 50mcg/0.5mL 06/21/2023 Active Problems: Patient Active Problem List Diagnosis Code Acute intracerebral hemorrhage (HCC) I61.9 Intracranial hemorrhage (HCC) I62.9 Cerebral amyloid angiopathy (CODE) I68.0 Nontraumatic lobar cerebral hemorrhage (HCC) I61.9 Hypertension I10 HERLINDA (acute kidney injury) (HCC) N17.9 Memory changes R41.3 Mood changes R45.86 Syncope and collapse R55 Seizures (HCC) R56.9 SAH (subarachnoid hemorrhage) (HCC) I60.9 Isolation/Infection: Isolation No Isolation Patient Infection Status None to display Nurse Assessment: Last Vital Signs: BP (!) 120/56 Pulse 68 Temp 98.1 F (36.7 C) (Oral) Resp 16 Ht 1.6 m (5' 3 ) Wt 59.2 kg (130 lb 8.2 oz) SpO2 94% BMI 23.12 kg/m Last documented pain score (0-10 scale): Last Weight: Wt Readings from Last 1 Encounters: 08/03/23 59.2 kg (130 lb 8.2 oz) Mental Status: oriented and alert IV Access: - None Nursing Mobility/ADLs: Walking Assisted Transfer Assisted Bathing Assisted Dressing Assisted Toileting Assisted Feeding Independent Certified Court/Medical Interpreter Independent Med Delivery whole Wound Care Documentation and Therapy: Elimination: Continence: Bowel: Yes Bladder: Yes Urinary Catheter: None Colostomy/Ileostomy/Ileal Conduit: No Date of Last BM: 08/07/23 No intake or output data in the 24 hours ending 08/07/23 1517 No intake/output data recorded. Safety Concerns: None and At Risk for Falls Impairments/Disabilities: None Nutrition Therapy: Current Nutrition Therapy: - Oral Diet: General Routes of Feeding: Oral Liquids: Thin Liquids Daily Fluid Restriction: no Last Modified Barium Swallow with Video (Video Swallowing Test): not done Treatments at the Time of Hospital Discharge: Respiratory Treatments: none Oxygen Therapy: is not on home oxygen therapy. Ventilator: - No ventilator support Rehab Therapies: Physical Therapy and Occupational Therapy Weight Bearing Status/Restrictions: No weight bearing restrictions Other Medical Equipment (for information only, NOT a DME order): none Other Treatments: SN to eval and treat. Patient's personal belongings (please select all that are sent with patient): Dentures upper and lower RN SIGNATURE: CASE MANAGEMENT/SOCIAL WORK SECTION Inpatient Status Date: 08-03-23 Readmission Risk Assessment Score: Readmission Risk Risk of Unplanned Readmission: 14 Discharging to Facility/ Agency [facility]: [facility] Address: Phone: Fax: Dialysis Facility (if applicable) Name: Address: Dialysis Schedule: Phone: Fax: [employer] signature: PHYSICIAN SECTION Prognosis: Good Condition at Discharge: Stable Rehab Potential (if transferring to Rehab): Fair Recommended Labs or Other Treatments After Discharge: none Physician Certification: I certify the above information and transfer of Bhumika Wheatley is necessary for the continuing treatment of the diagnosis listed and that she requires Home Care for greater 30 days. Update Admission H&P: No change in H&P PHYSICIAN SIGNATURE: documented in this encounter [facility] 08-07-2023 History of Presen t illness Narrative Physical therapy Bed mobility Supine to Sit: Stand by assistance Sit to Supine: Stand by assistance Scooting: Stand by assistance Bed Mobility Comments: Bed mobility performed multiple times, increased time/effort to perform. Transfers Sit to Stand: Contact guard assistance Stand to Sit: Contact guard assistance Comment: handheld assistance with transfers but does not pull/push for support. Educated on proper hand placement. Ambulation Surface: Level tile Device: No Device Assistance: Minimal assistance Quality of Gait: mild instability, reaches for UE support throughout, mild trunk sway, decreased gait speed, 2x LOB requiring min-A. Gait Deviations: Slow Katelin;Decreased step length;Staggers Distance: 250 feet More Ambulation?: No Occupational Therapy ADL Feeding: Modified independent ;Setup;Increased time to complete Grooming: Contact guard assistance;Setup;Increased time to complete UE Bathing: Contact guard assistance;Setup;Increased time to complete LE Bathing: Minimal assistance;Setup;Increased time to complete UE Dressing: Contact guard assistance;Setup;Increased time to complete LE Dressing: Minimal assistance;Setup;Increased time to complete LE Dressing Skilled Clinical Factors: Pt donning underwear with min A to thread B feet this date. Toileting: Contact guard assistance Toileting Skilled Clinical Factors: Pt demo'd toileting with CGA for balance and safety with use of toilet rails Skin Care: Soap and water Social history Lives With: Spouse Type of Home: House Home Layout: Two level, 1/2 bath on main level Home Access: Stairs to enter with rails Entrance Stairs - Number of Steps: 3 Entrance Stairs - Rails: Left Bathroom Shower/Tub: Tub/Shower unit Bathroom Toilet: Standard Bathroom Equipment: Shower chair, Grab bars in shower Home Equipment: (no DME use at a baseline.) Receives Help From: Family ADL Assistance: Independent Homemaking Assistance: Independent Homemaking Responsibilities: Yes (shares with spouse) Ambulation Assistance: Independent Transfer Assistance: Independent Active Orthopedic Specialist: No Patient's Orthopedic Specialist Info: spouse Occupation: 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 Impression: Ms. Bhumika Wheatley is a 73 y.o. female with a history of Syncope and collapse Syncopal episode Questionable seizure-Depakote Recent intraparenchymal hemorrhage/subarachnoid hemorrhage/subdural hematoma-current CT no new bleed Lupus CKD creatinine 1.7 Hypertension-Norvasc, Coreg Anemia hemoglobin 11 Depression-Celexa Question dementia-Aricept, question on amantadine every other day Hypothyroid-Synthroid Recommendations: 1. Diagnosis: Syncopal episode /questionable seizure, recent history of IPH/SAH/SDH 2. Therapy: Min assist lower extremity, ambulatory 250 feet min assist had 2 loss of balance 3. Medical Necessity:2 As above 4. Support: Clarify, present able provide 07/03 5. Rehab recommendation: Progressing rapidly high-level for acute inpatient rehab would recommend SNF if does not have support at home that can provide assistance /safety 6. DVT proph: Lovenox [facility] Neurology IN-PATIENT SERVICE [facility] Progress Note Date: 08/06/2023 Patient name: Bhumika Wheatley Date of admission: 08/03/2023 3:07 PM Account: [id number] Date of : 1950 PCP: Espinoza Melo MD Room: 0145/0145-01 Code Status: Full Code Chief Complaint: Chief Complaint Patient presents with Fall Altered Mental Status Interval hx: The patient was seen and examined at bedside. Is vitally stable, alert and oriented x 3. No acute overnight events. Patient reports no more episodes on Depakote. Family is concerned that patient may be unsafe to go home due to gait unsteadiness. Will re-eval patient's gait and will obtain PT/OT reccs before discharging patient. Patient may benefit from HHC vs outpatient therapies vs ARU. Brief History of Present Illness: 73-year-old female with a history of lupus, CKD, hypertension, was seen in April after having IPH, with scattered SAH and small right parafalcine SDH which the main symptom was encephalopathy. At the time EEG was normal and MRI brain redemonstrated the IPH. She was discharged on Aricept for 1 and Keppra 500 mg twice daily today she comes back after having a syncopal episode in which she was trying to reach for something with her left arm and positive then had a fall on the ground for around 30 seconds where she had lost consciousness. She did not hit her head and there was no seizure-like activity reported. Patient had a confusional state afterwards for an hour, and when I saw her she was alert and oriented but physical examination did reveal circumstantial speech with the patient will speak about irrelevant things when asked a question instead of focusing on the question. No neurosurgical intervention was done and patient had expected evolution of bleed with resorption. The patient will be admitted for syncopal versus seizure workup and 1 get EEG done and continued on same dose of Keppra for now, as well as Depakote 2050 mg twice daily 08/05/23: VSS. Alert, fully oriented. Orthostatic vitals negative. PT/OT pending, PMNR recommendations pending PT/OT. EEG normal, no epileptiform discharges. MRI brain w wo pending. Carotid dopplers showed < 50% stenosis right ICA, mild plaque in right ICA. Mild < 50% stenosis left ICA,, heterogenous plaque in left ICA. Supine 124/56 Sittin/61 Standing 105/61 Past Medical History: Past Medical History: Diagnosis Date Breast cancer (HCC) Lupus (systemic lupus erythematosus) (HCC) Patient history of Lupus provided by sonFelipe. Past Surgical History: Past Surgical History: Procedure Laterality Date THYROID SURGERY Medications Prior to Admission: Prior to Admission medications Medication Sig Start Date End Date Taking? Authorizing Provider amLODIPine (NORVASC) 5 MG tablet Take 2 tablets by mouth daily Patient not taking: Reported on 07/20/2023 06/08/23 ProviderAbdiel MD amantadine (SYMMETREL) 100 MG capsule Take 1 capsule by mouth 2 times daily At 0800 and 1400 07/04/23 Harriet Goodman MD triamcinolone (KENALOG) 0.1 % ointment APPLY TO AFFECTED AREA EVERY DAY AT BEDTIME Patient not taking: Reported on 07/20/2023 05/03/23 Abdiel Fuentes MD divalproex (DEPAKOTE) [address] tablet Take 1 tablet by mouth 2 times daily 05/10/23 09/22/23 Farzana Ley PA donepezil (ARICEPT) 10 MG tablet Take 1 tablet by mouth nightly Patient not taking: Reported on 07/20/2023 05/18/23 Farzana Ley PA citalopram (CELEXA) 10 MG tablet Take 1 tablet by mouth daily 04/21/23 Allen Hernandez MD carvedilol (COREG) 6.25 MG tablet Take 1 tablet by mouth 2 times daily (with meals) 04/20/23 Allen Hernandez MD levothyroxine (SYNTHROID) 88 MCG tablet Take 1 tablet by mouth Daily Abdiel Fuentes MD furosemide (LASIX) 20 MG tablet Take 1 tablet by mouth daily Patient not taking: Reported on 06/03/2023 Abdiel Fuentes MD ferrous sulfate (IRON 325) 325 (65 Fe) MG tablet Take 1 tablet by mouth every other day Patient not taking: Reported on 07/20/2023 Abdiel Fuentes MD amLODIPine (NORVASC) 10 MG tablet Take 1 tablet by mouth daily 04/20/23 Allen Hernandez MD Allergies: Diazepam Social History: Tobacco: reports that she quit smoking about 3 months ago. Her smoking use included cigarettes. She has never been exposed to tobacco smoke. She has never used smokeless tobacco. Alcohol: reports no history of alcohol use. Drug Use: reports no history of drug use. Family History: Family History Problem Relation Age of Onset Alzheimer's Disease Neg Hx Cerebral Aneurysm Neg Hx Dementia Neg Hx Epilepsy Neg Hx Migraines Neg Hx Mult Sclerosis Neg Hx Neuropathy Neg Hx Parkinsonism Neg Hx Seizures Neg Hx Stroke Neg Hx Review of Systems: Review of Systems Constitutional: Negative for activity change, chills and fatigue. Respiratory: Negative for cough, shortness of breath, wheezing and stridor. Cardiovascular: Negative for chest pain, palpitations and leg swelling. Gastrointestinal: Negative for abdominal distention, abdominal pain, constipation, diarrhea, nausea and vomiting. Neurological: Negative for dizziness, tremors, seizures, syncope, speech difficulty, weakness, light-headedness, numbness and headaches. Physical Exam: BP 117/60 Pulse 73 Temp 98.4 F (36.9 C) (Oral) Resp 15 Ht 1.6 m (5' 3 ) Wt 59.2 kg (130 lb 8.2 oz) SpO2 94% BMI 23.12 kg/m Temp (24hrs), Av.1 F (36.7 C), Min:97.7 F (36.5 C), Max:98.4 F (36.9 C) No results for input(s): POCGLU in the last 72 hours. No intake or output data in the 24 hours ending 08/06/23 1556 Neurologic Exam GENERAL Appears comfortable and in no distress HEENT NC/ AT HEART S1 and S2 heard; palpation of pulses: radial pulse NECK Supple and no bruits heard MENTAL STATUS: Alert, oriented, intact memory, no confusion, normal speech, normal language, no hallucination or delusion CRANIAL NERVES: II - Visual aguiar intact to confrontation III,IV, - PERR, EOMs full, no ptosis V - Normal facial sensation VII - Normal facial symmetry VIII - Intact hearing IX,X - Symmetrical palate XI - Symmetrical shoulder shrug XII - Midline tongue, no atrophy MOTOR FUNCTION: RUE: Significant for good strength of grade 5/5 in proximal and distal muscle groups LUE: Significant for good strength of grade 5/5 in proximal and distal muscle groups RLE: Significant for good strength of grade 5/5 in proximal and distal muscle groups LLE: Significant for good strength of grade 5/5 in proximal and distal muscle groups Normal bulk, normal tone and no involuntary movements, no tremor SENSORY FUNCTION: Normal touch, normal pinprick, normal vibration, normal proprioception CEREBELLAR FUNCTION: Intact fine motor control over upper limbs and lower limbs REFLEX FUNCTION: Symmetric in upper and lower extremities STATION and GAIT Per PT assessment: Pt with mobility deficits requiring min-A to ambulate 250 feet with no AD. Gait: mild instability, reaches for UE support throughout, mild trunk sway, decreased gait speed, 2x LOB requiring min-A. Investigations: Laboratory Testing: Recent Results (from the past 24 hour(s)) Basic Metabolic Panel w/ Reflex to MG Collection Time: 08/06/23 7:48 AM Result Value Ref Range Sodium 134 (L) 135 - 144 mmol/L Potassium 4.4 3.7 - 5.3 mmol/L Chloride 103 98 - 107 mmol/L CO2 24 20 - 31 mmol/L Anion Gap 7 (L) 9 - 17 mmol/L Glucose 88 70 - 99 mg/dL BUN 22 8 - 23 mg/dL Creatinine 1.8 (H) 0.5 - 0.9 mg/dL Est, Glom Filt Rate 29 (L) >60 mL/min/1.73m2 Calcium 8.4 (L) 8.6 - 10.4 mg/dL CBC with Auto Differential Collection Time: 08/06/23 7:48 AM Result Value Ref Range WBC 8.9 3.5 - 11.3 k/uL RBC 3.65 (L) 3.95 - 5.11 m/uL Hemoglobin 11.6 (L) 11.9 - 15.1 g/dL Hematocrit 36.9 36.3 - 47.1 % MCV 101.1 82.6 - 102.9 fL MCH 31.8 25.2 - 33.5 pg MCHC 31.4 28.4 - 34.8 g/dL RDW 14.6 (H) 11.8 - 14.4 % Platelets 255 138 - 453 k/uL MPV 9.5 8.1 - 13.5 fL NRBC Automated 0.0 0.0 per 100 WBC Neutrophils % 67 (H) 36 - 65 % Lymphocytes % 11 (L) 24 - 43 % Monocytes % 16 (H) 3 - 12 % Eosinophils % 3 1 - 4 % Basophils % 1 0 - 2 % Immature Granulocytes 2 (H) 0 % Neutrophils Absolute 5.97 1.50 - 8.10 k/uL Lymphocytes Absolute 1.00 (L) 1.10 - 3.70 k/uL Monocytes Absolute 1.46 (H) 0.10 - 1.20 k/uL Eosinophils Absolute 0.26 0.00 - 0.44 k/uL Basophils Absolute 0.05 0.00 - 0.20 k/uL Absolute Immature Granulocyte 0.14 0.00 - 0.30 k/uL RBC Morphology ANISOCYTOSIS PRESENT Recent Labs 08/06/23 0748 WBC 8.9 RBC 3.65* HGB 11.6* HCT 36.9 MCV 101.1 MCH 31.8 MCHC 31.4 RDW 14.6* PLT 255 MPV 9.5 Recent Labs 08/06/23 0748 NA 134* K 4.4 CL 103 CO2 24 BUN 22 CREATININE 1.8* GLUCOSE 88 CALCIUM 8.4* Hemoglobin A1C Date Value Ref Range Status 04/16/2023 5.8 4.0 - 6.0 % Final Assessment : Primary Problem Syncope and collapse Active Hospital Problems Diagnosis Date Noted Seizures (HCC) [R56.9] 08/05/2023 SAH (subarachnoid hemorrhage) (HCC) [I60.9] 08/05/2023 Syncope and collapse [R55] 08/03/2023 73-year-old female with recent IPH with scattered SAH and SDH in April that was treated nonsurgically syncopal episode for 30 seconds without head trauma, with a confusional state afterwards for around 1 hour and currently displays speech pattern that is abnormal but not aphasic. Patient will receive repeat EEG and will continue on Keppra and Depakote Plan: Syncopal versus seizure-like episode -Repeat CT head showed stable left frontal encephalomalacia and no bleed - Last EEG in April --EEG normal, no epileptiform discharges. - Discontinued discontinued, Depakote 500 mg twice daily --Orthostatic vitals negative - MRI brain w wo negative for acute abnormality --Carotid dopplers showed < 50% stenosis right ICA, mild plaque in right ICA. Mild < 50% stenosis left ICA, heterogenous plaque in left ICA -Continue Aricept 10 mg nightly - PT/OT eval prior to dc Supine 124/56 Sittin/61 Standing 105/61 Hypertension Continue home antihypertensive medications -Norvasc 10 mg daily -Coreg 6.25 mg po BID Hypothyroidism - Continue home dose of levothyroxine DVT ppx: Lovenox 30 mg SC daily Code: Full code Patient or family members expressed understanding on topics that were discussed and all their questions were answered. Follow-up further recommendations after discussing case with the attending. The plan was discussed with the patient, patient's family and the medical staff. Consultations: IP CONSULT TO NEUROLOGY IP CONSULT TO PHYSICAL MEDICINE REHAB Patient is admitted as inpatient status because of co-morbidities listed above, severity of signs and symptoms as outlined, requirement for current medical therapies and most importantly because of direct risk to patient if care not provided in a hospital setting. Yesy Arzate MD Neurology Resident PGY-2 08/06/2023 3:56 PM Copy sent to Espinoza Logan MD Associated attestation - Bart Stock MD - 08/06/2023 6:38 PM EST I discussed the care of patient including pertinent history and exam findings, with the Neurology resident. I have seen and examined the patient on 08/04/2023 and the silva elements of all parts of the encounter have been performed by me. I agree with the assessment, plan and orders documented by the resident, with changes as needed. 73-year-old woman with lupus, CKD, hypertension IPH, SAH (05/07) discharged on Aricept and Keppra 500 mg twice daily which was switched to Depakote 500 mg twice daily. Fell down on the ground for around 30 seconds where she lost consciousness with confusion. Nonfocal neurological exam. Orthostatics negative. Differentials seizure, syncopal episode. EEG was normal. MRI of the brain showed old left frontal hematoma which was decreased without intracranial mass, numerous foci of susceptibility artifact within both cerebral hemispheres with the differentials of hypertensive microangiopathy Vs amyloidosis. Carotid dopplers showed < 50% stenosis right ICA, mild plaque in right ICA. Mild < 50% stenosis left ICA,, heterogenous plaque in left ICA. Will stop Keppra (mood changes ) and continue Depakote 500 mg twice daily and eventually stop in the outpatient setting (with left encephalomalacia due to IPH) and if EEG is normal. Continue Aricept 10 mg nightly Aggressive lifestyle changes with good control of hypertension, lipid levels to prevent carotid disease Discharge planning -PT evaluation pending Outpatient neurology clinic visit in 3 months This note is created with the assistance of a speech-recognition program. While intending to generate a document that actually reflects the content of the visit, the document can still have some errors including those of syntax and sound a- like substitutions which may escape proofreading. In such instances, actual meaning can be extrapolated by contextual derivation. Physical Therapy Facility/Department: [address] [facility] Physical Therapy Initial Assessment Name: Bhumika Wheatley : 1950 Date of Service: 08/06/2023 Chief Complaint Patient presents with Fall Altered Mental Status Discharge Recommendations: Patient would benefit from continued therapy after discharge PT Equipment Recommendations Equipment Needed: Yes Mobility Devices: Canes Cane: Straight Cane Patient Diagnosis(es): The encounter diagnosis was Syncope and collapse. Past Medical History: has a past medical history of Breast cancer (HCC) and Lupus (systemic lupus erythematosus) (HCC). Past Surgical History: has a past surgical history that includes Thyroid surgery. Assessment Body Structures, Functions, Activity Limitations Requiring Skilled Therapeutic Intervention: Decreased functional mobility ;Decreased endurance;Decreased balance;Decreased coordination;Decreased strength;Decreased safe awareness Assessment: Pt with mobility deficits requiring min-A to ambulate 250 feet with no AD. Pt freuquenly reaching for UE support during standing mobility, reports being open to utilizing AD and would likely benefit from use of SPC. Pt would benefit from additional PT upon discharge to address balance, coordination, and BLE strengthening. Pt would benefit from 24 hour assistance with mobility upon discharge and reports supportive family is able to assist as needed. Therapy Prognosis: Good Decision Making: Medium Complexity Requires PT Follow-Up: Yes Activity Tolerance Activity Tolerance: Patient tolerated treatment well Plan Physical Therapy Plan General Plan: (5-6x/week) Current Treatment Recommendations: Strengthening, Balance training, Functional mobility training, Transfer training, Gait training, Safety education & training, Home exercise program, Therapeutic activities, Patient/Caregiver education & training, Equipment evaluation, education, & procurement, Endurance training, Stair training Safety Devices Type of Devices: Bed alarm in place, Call light within reach, Gait belt, Patient at risk for falls, Left in bed, Nurse notified Restraints Restraints Initially in Place: No Restrictions Restrictions/Precautions Restrictions/Precautions: Fall Risk, Seizure, Up as Tolerated Required Braces or Orthoses?: No Subjective General Patient assessed for rehabilitation services?: Yes Family / Caregiver Present: Yes (spouse) Follows Commands: Within Functional Limits Subjective Subjective: Pt supine in bed and agreeable to therapy, RN agreeable to therapy. Pt pleasant and cooperative throughout. Pt denies pain at rest. Social/Functional History Social/Functional History Lives With: Spouse Type of Home: House Home Layout: Two level, 1/2 bath on main level Home Access: Stairs to enter with rails Entrance Stairs - Number of Steps: 3 Entrance Stairs - Rails: Left Bathroom Shower/Tub: Tub/Shower unit Bathroom Toilet: Standard Bathroom Equipment: Shower chair, Grab bars in shower Home Equipment: (no DME use at a baseline.) Receives Help From: Family ADL Assistance: Independent Homemaking Assistance: Independent Homemaking Responsibilities: Yes (shares with spouse) Ambulation Assistance: Independent Transfer Assistance: Independent Active Orthopedic Specialist: No Patient's Orthopedic Specialist Info: spouse 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 Vision/Hearing Vision Vision: Impaired Vision Exceptions: Wears glasses at all times Hearing Hearing: Within functional limits Cognition Cognition Overall Cognitive Status: WFL Objective AROM RLE (degrees) RLE AROM: WFL AROM LLE (degrees) LLE AROM : WFL AROM RUE (degrees) RUE AROM : WFL AROM LUE (degrees) LUE AROM : WFL Strength RLE Strength RLE: WFL Comment: Grossly 4/5 Strength LLE Strength LLE: WFL Comment: Grossly 4+/5 Strength RUE Comment: Co-eval with OT, see OT note for UE detail. Strength LUE Comment: Co-eval with OT, see OT note for UE detail. Bed mobility Supine to Sit: Stand by assistance Sit to Supine: Stand by assistance Scooting: Stand by assistance Bed Mobility Comments: Bed mobility performed multiple times, increased time/effort to perform. Transfers Sit to Stand: Contact guard assistance Stand to Sit: Contact guard assistance Comment: handheld assistance with transfers but does not pull/push for support. Educated on proper hand placement. Ambulation Surface: Level tile Device: No Device Assistance: Minimal assistance Quality of Gait: mild instability, reaches for UE support throughout, mild trunk sway, decreased gait speed, 2x LOB requiring min-A. Gait Deviations: Slow Katelin;Decreased step length;Staggers Distance: 250 feet More Ambulation?: No Stairs/Curb Stairs?: No Balance Posture: Fair Sitting - Static: Good Sitting - Dynamic: Good;- Standing - Static: Fair Standing - Dynamic: Fair;- Comments: standing balance assessed while uisng no AD. AM-PAC - Mobility AM-PAC Basic Mobility - Inpatient How much help is needed turning from your back to your side while in a flat bed without using bedrails?: None How much help is needed moving from lying on your back to sitting on the side of a flat bed without using bedrails?: None How much help is needed moving to and from a bed to a chair?: A Little How much help is needed standing up from a chair using your arms?: A Little How much help is needed walking in hospital room?: A Little How much help is needed climbing 3-5 steps with a railing?: A Little [facility] Inpatient Mobility Raw Score : 20 AM-[facility] Inpatient T-Scale Score : 47.67 Mobility Inpatient CMS 0-100% Score: 35.83 Mobility Inpatient CMS G-Code Modifier : CJ Goals Short Term Goals Time Frame for Short Term Goals: 14 visits Short Term Goal 1: Pt will perform sit<>stand transfer with supervision. Short Term Goal 2: Pt will ambulate 300 feet with least restrictive AD and supervision. Short Term Goal 3: Pt will demonstrate good- dynamic standing balance to decrease fall risk. Short Term Goal 4: Pt will negotiate 3 stairs with a L sided handrail and SBA to allow the pt to enter prior living arrangements. Additional Goals?: No Education Patient Education Education Given To: Patient Education Provided: Role of Therapy;Plan of Care;Transfer Training;Fall Prevention Strategies Education Method: Verbal Barriers to Learning: None Education Outcome: Verbalized understanding Therapy Time Individual Concurrent Group Co-treatment Time In 1338 Time Out 1411 Minutes 33 Timed Code Treatment Minutes: 8 Minutes Maikel Venegas PT Occupational Therapy Facility/Department: [address] [facility] Occupational Therapy Initial Assessment Name: Bhumika Wheatley : 1950 Date of Service: 08/06/2023 Chief Complaint Patient presents with Fall Altered Mental Status Discharge Recommendations: Patient would benefit from continued therapy after discharge OT Equipment Recommendations Equipment Needed: Yes Mobility Devices: Walker Walker: Rolling Patient Diagnosis(es): The encounter diagnosis was Syncope and collapse. Past Medical History: has a past medical history of Breast cancer (HCC) and Lupus (systemic lupus erythematosus) (HCC). Past Surgical History: has a past surgical history that includes Thyroid surgery. Assessment Performance deficits / Impairments: Decreased functional mobility ;Decreased ADL status;Decreased endurance;Decreased balance;Decreased high-level IADLs Assessment: RN ok'd OT eval this date. Pt post fall with LOC. Pt engaging in both functional mobility and functional activities with CGA, without use of DME. Pt with 2 LOB requiring min A to correct. Pt educated on use of adaptive equipment, pt in agreeance. Pt would continue to benefit from OT services to address deficits listed above and improve overall functional performance prior to discharge. Prognosis: Good Decision Making: Medium Complexity REQUIRES OT FOLLOW-UP: Yes Activity Tolerance Activity Tolerance: Patient Tolerated treatment well Plan Occupational Therapy Plan Times Per Week: 3-4x/wk Current Treatment Recommendations: Balance training, Functional mobility training, Endurance training, Safety education & training, Patient/Caregiver education & training, Equipment evaluation, education, & procurement, Self-Care / ADL, Home management training Restrictions Restrictions/Precautions Restrictions/Precautions: Fall Risk, Seizure, Up as Tolerated Required Braces or Orthoses?: No Subjective General Patient assessed for rehabilitation services?: Yes Family / Caregiver Present: Yes () General Comment Comments: RN ok'd eval this date. Pt pleasant and agreeable to therapy throughout entire session. Pt denying pain during session this date. Social/Functional History Social/Functional History Lives With: Spouse Type of Home: House Home Layout: Two level, 1/2 bath on main level Home Access: Stairs to enter with rails Entrance Stairs - Number of Steps: 3 Entrance Stairs - Rails: Left Bathroom Shower/Tub: Tub/Shower unit Bathroom Toilet: Standard Bathroom Equipment: Shower chair, Grab bars in shower Home Equipment: (no DME use at a baseline.) Receives Help From: Family ADL Assistance: Independent Homemaking Assistance: Independent Homemaking Responsibilities: Yes (shares with spouse) Ambulation Assistance: Independent Transfer Assistance: Independent Active Orthopedic Specialist: No Patient's Orthopedic Specialist Info: spouse 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 Safety Devices Type of Devices: Bed alarm in place;Call light within reach;Gait belt;Patient at risk for falls;Left in bed;Nurse notified Restraints Restraints Initially in Place: No Bed Mobility Training Bed Mobility Training: Yes Overall Level of Assistance: Supervision (HOB elevated ~30 degrees) Supine to Sit: Supervision Sit to Supine: Supervision Scooting: Supervision Balance Sitting: Without support (Pt engaging in static/dynamic sitting during functional activities with SUP. Pt sat for ~5 mins. No seated deficits noted this date.) Standing: With support (Pt engaging in static/dynamic standing during functional activities with CGA, without DME. Pt presenting unsteady this date.) Transfer Training Transfer Training: Yes Overall Level of Assistance: Contact-guard assistance (without use of DME) Interventions: Verbal cues (vc's for proper hand placement during transfer) Sit to Stand: Contact-guard assistance (without DME) Stand to Sit: Contact-guard assistance (without DME) Gait Overall Level of Assistance: Contact-guard assistance (Pt engaging in functional mobility around room/unit with CGA, without use of DME. Pt with 2 LOB's requiring min A to correct balance. Pt utilizing rails in quintanilla and furniture within room for balance, pt educated on use of AE.) AROM: Within functional limits Strength: Within functional limits (BUE's grossly 4+/5) Coordination: Within functional limits Tone: Normal Sensation: Intact (Pt reporting no acute/chronic numbness or tingling this date) ADL Feeding: Modified independent ;Setup;Increased time to complete Grooming: Contact guard assistance;Setup;Increased time to complete UE Bathing: Contact guard assistance;Setup;Increased time to complete LE Bathing: Minimal assistance;Setup;Increased time to complete UE Dressing: Contact guard assistance;Setup;Increased time to complete LE Dressing: Minimal assistance;Setup;Increased time to complete LE Dressing Skilled Clinical Factors: Pt donning underwear with min A to thread B feet this date. Toileting: Contact guard assistance Toileting Skilled Clinical Factors: Pt demo'd toileting with CGA for balance and safety with use of toilet rails Skin Care: Soap and water Vision Vision: Impaired Vision Exceptions: Wears glasses at all times Hearing Hearing: Within functional limits Cognition Overall Cognitive Status: WFL Orientation Overall Orientation Status: Within Functional Limits Education Given To: Patient Education Provided: Role of Therapy;Plan of Care;Transfer Training;ADL Adaptive Strategies Education Provided Comments: Pt educated on OT role, POC, proper hand placement during transfers and use of adaptive equipment to assist with balance. Education Method: Demonstration;Verbal Barriers to Learning: None Education Outcome: Verbalized understanding;Demonstrated understanding AM-PAC - ADL AM-PAC Daily Activity - Inpatient How much help is needed for putting on and taking off regular lower body clothing?: A Little How much help is needed for bathing (which includes washing, rinsing, drying)?: A Little How much help is needed for toileting (which includes using toilet, bedpan, or urinal)?: A Little How much help is needed for putting on and taking off regular upper body clothing?: A Little How much help is needed for taking care of personal grooming?: A Little How much help for eating meals?: None AM-[facility] Inpatient Daily Activity Raw Score: 19 AM-[facility] Inpatient ADL T-Scale Score : 40.22 ADL Inpatient CMS 0-100% Score: 42.8 ADL Inpatient CMS G-Code Modifier : CK Goals Short Term Goals Time Frame for Short Term Goals: By discharge, pt will: Short Term Goal 1: demo grooming/UB ADLs Independently. Short Term Goal 2: demo toileting/LB ADLs with SBA, adaptive techniques PRN Short Term Goal 3: demo safe functional transfers with mod I, in preparation for ADLs. Short Term Goal 4: demo dynamic standing during functional activities for 10+ mins with SUP, LRD PRN. Short Term Goal 5: demo functional mobility during functional activities with SUP, LRD PRN. Therapy Time Individual Concurrent Group Co-treatment Time In 1338 Time Out 1411 Minutes 33 Timed Code Treatment Minutes: 23 Minutes (co-eval w/PT) Ellen Garsia OTR/L [facility] Neurology IN-PATIENT SERVICE [facility] Progress Note Date: 08/05/2023 Patient name: Bhumika Wheatley Date of admission: 08/03/2023 3:07 PM Account: [id number] Date of : 1950 PCP: Espinoza Melo MD Room: 0145/0145-01 Code Status: Full Code Chief Complaint: Chief Complaint Patient presents with Fall Altered Mental Status Interval hx: The patient was seen and examined at bedside. Is vitally stable, alert and oriented x 3. No acute overnight events. Orthostatics negative. MRI brain pending. EEG normal. Brief History of Present Illness: 73-year-old female with a history of lupus, CKD, hypertension, was seen in April after having IPH, with scattered SAH and small right parafalcine SDH which the main symptom was encephalopathy. At the time EEG was normal and MRI brain redemonstrated the IPH. She was discharged on Aricept for 1 and Keppra 500 mg twice daily today she comes back after having a syncopal episode in which she was trying to reach for something with her left arm and positive then had a fall on the ground for around 30 seconds where she had lost consciousness. She did not hit her head and there was no seizure-like activity reported. Patient had a confusional state afterwards for an hour, and when I saw her she was alert and oriented but physical examination did reveal circumstantial speech with the patient will speak about irrelevant things when asked a question instead of focusing on the question. No neurosurgical intervention was done and patient had expected evolution of bleed with resorption. The patient will be admitted for syncopal versus seizure workup and 1 get EEG done and continued on same dose of Keppra for now, as well as Depakote 2050 mg twice daily 08/05/23: VSS. Alert, fully oriented. Orthostatic vitals negative. PT/OT pending, PMNR recommendations pending PT/OT. EEG normal, no epileptiform discharges. MRI brain w wo pending. Carotid dopplers showed < 50% stenosis right ICA, mild plaque in right ICA. Mild < 50% stenosis left ICA,, heterogenous plaque in left ICA. Supine 124/56 Sittin/61 Standing 105/61 Past Medical History: Past Medical History: Diagnosis Date Breast cancer (HCC) Lupus (systemic lupus erythematosus) (HCC) Patient history of Lupus provided by sonFelipe. Past Surgical History: Past Surgical History: Procedure Laterality Date THYROID SURGERY Medications Prior to Admission: Prior to Admission medications Medication Sig Start Date End Date Taking? Authorizing Provider amLODIPine (NORVASC) 5 MG tablet Take 2 tablets by mouth daily Patient not taking: Reported on 07/20/2023 06/08/23 Abdiel Fuentes MD amantadine (SYMMETREL) 100 MG capsule Take 1 capsule by mouth 2 times daily At 0800 and 1400 07/04/23 Harriet Goodman MD triamcinolone (KENALOG) 0.1 % ointment APPLY TO AFFECTED AREA EVERY DAY AT BEDTIME Patient not taking: Reported on 07/20/2023 05/03/23 Abdiel Fuentes MD divalproex (DEPAKOTE) [address] tablet Take 1 tablet by mouth 2 times daily 05/10/23 09/22/23 Farzana Ley PA donepezil (ARICEPT) 10 MG tablet Take 1 tablet by mouth nightly Patient not taking: Reported on 07/20/2023 05/18/23 Farzana Ley PA citalopram (CELEXA) 10 MG tablet Take 1 tablet by mouth daily 04/21/23 Allen Hernandez MD carvedilol (COREG) 6.25 MG tablet Take 1 tablet by mouth 2 times daily (with meals) 04/20/23 Allen Hernandez MD levothyroxine (SYNTHROID) 88 MCG tablet Take 1 tablet by mouth Daily Abdiel Fuentes MD furosemide (LASIX) 20 MG tablet Take 1 tablet by mouth daily Patient not taking: Reported on 06/03/2023 Abdiel Fuentes MD ferrous sulfate (IRON 325) 325 (65 Fe) MG tablet Take 1 tablet by mouth every other day Patient not taking: Reported on 07/20/2023 Abdiel Fuentse MD amLODIPine (NORVASC) 10 MG tablet Take 1 tablet by mouth daily 04/20/23 Allen Hernandez MD Allergies: Diazepam Social History: Tobacco: reports that she quit smoking about 3 months ago. Her smoking use included cigarettes. She has never been exposed to tobacco smoke. She has never used smokeless tobacco. Alcohol: reports no history of alcohol use. Drug Use: reports no history of drug use. Family History: Family History Problem Relation Age of Onset Alzheimer's Disease Neg Hx Cerebral Aneurysm Neg Hx Dementia Neg Hx Epilepsy Neg Hx Migraines Neg Hx Mult Sclerosis Neg Hx Neuropathy Neg Hx Parkinsonism Neg Hx Seizures Neg Hx Stroke Neg Hx Review of Systems: Review of Systems Constitutional: Negative for activity change, chills and fatigue. Respiratory: Negative for cough, shortness of breath, wheezing and stridor. Cardiovascular: Negative for chest pain, palpitations and leg swelling. Gastrointestinal: Negative for abdominal distention, abdominal pain, constipation, diarrhea, nausea and vomiting. Neurological: Negative for dizziness, tremors, seizures, syncope, speech difficulty, weakness, light-headedness, numbness and headaches. Physical Exam: BP (!) 146/65 Pulse 59 Temp 98.3 F (36.8 C) (Oral) Resp 17 Ht 1.6 m (5' 3 ) Wt 59.2 kg (130 lb 8.2 oz) SpO2 95% BMI 23.12 kg/m Temp (24hrs), Av.1 F (36.7 C), Min:97.8 F (36.6 C), Max:98.7 F (37.1 C) No results for input(s): POCGLU in the last 72 hours. Intake/Output Summary (Last 24 hours) at 08/05/2023 1617 Last data filed at 08/05/2023 1305 Gross per 24 hour Intake 420 ml Output 5 ml Net 415 ml Neurologic Exam GENERAL Appears comfortable and in no distress HEENT NC/ AT HEART S1 and S2 heard; palpation of pulses: radial pulse NECK Supple and no bruits heard MENTAL STATUS: Alert, oriented, intact memory, no confusion, normal speech, normal language, no hallucination or delusion CRANIAL NERVES: II - Visual aguiar intact to confrontation III,IV, - PERR, EOMs full, no ptosis V - Normal facial sensation VII - Normal facial symmetry VIII - Intact hearing IX,X - Symmetrical palate XI - Symmetrical shoulder shrug XII - Midline tongue, no atrophy MOTOR FUNCTION: RUE: Significant for good strength of grade 5/5 in proximal and distal muscle groups LUE: Significant for good strength of grade 5/5 in proximal and distal muscle groups RLE: Significant for good strength of grade 5/5 in proximal and distal muscle groups LLE: Significant for good strength of grade 5/5 in proximal and distal muscle groups Normal bulk, normal tone and no involuntary movements, no tremor SENSORY FUNCTION: Normal touch, normal pinprick, normal vibration, normal proprioception CEREBELLAR FUNCTION: Intact fine motor control over upper limbs and lower limbs REFLEX FUNCTION: Symmetric in upper and lower extremities STATION and GAIT Deferred Investigations: Laboratory Testing: Recent Results (from the past 24 hour(s)) Valproic Acid Level, Total and Free Collection Time: 08/04/23 6:44 PM Result Value Ref Range Valproic Acid Lvl 15 (L) 50 - 125 ug/mL Valproic Acid, Free 2.0 (L) 7.0 - 23.0 ug/mL Valproic Acid % Free 13.3 5.0 - 18.4 % Basic Metabolic Panel w/ Reflex to MG Collection Time: 08/05/23 4:26 AM Result Value Ref Range Sodium 136 135 - 144 mmol/L Potassium 4.3 3.7 - 5.3 mmol/L Chloride 102 98 - 107 mmol/L CO2 22 20 - 31 mmol/L Anion Gap 12 9 - 17 mmol/L Glucose 85 70 - 99 mg/dL BUN 23 8 - 23 mg/dL Creatinine 1.7 (H) 0.5 - 0.9 mg/dL Est, Glom Filt Rate 31 (L) >60 mL/min/1.73m2 Calcium 8.2 (L) 8.6 - 10.4 mg/dL CBC with Auto Differential Collection Time: 08/05/23 4:26 AM Result Value Ref Range WBC 10.4 3.5 - 11.3 k/uL RBC 3.45 (L) 3.95 - 5.11 m/uL Hemoglobin 11.0 (L) 11.9 - 15.1 g/dL Hematocrit 35.5 (L) 36.3 - 47.1 % MCV 102.9 82.6 - 102.9 fL MCH 31.9 25.2 - 33.5 pg MCHC 31.0 28.4 - 34.8 g/dL RDW 14.4 11.8 - 14.4 % Platelets 256 138 - 453 k/uL MPV 9.8 8.1 - 13.5 fL NRBC Automated 0.0 0.0 per 100 WBC Immature Granulocytes 1 (H) 0 % Neutrophils % 74 (H) 36 - 66 % Lymphocytes % 10 (L) 24 - 44 % Monocytes % 15 (H) 1 - 7 % Eosinophils % 0 (L) 1 - 4 % Basophils % 0 0 - 2 % Absolute Immature Granulocyte 0.10 0.00 - 0.30 k/uL Neutrophils Absolute 7.70 1.8 - 7.7 k/uL Lymphocytes Absolute 1.04 1.0 - 4.8 k/uL Monocytes Absolute 1.56 (H) 0.1 - 0.8 k/uL Eosinophils Absolute 0.00 0.0 - 0.4 k/uL Basophils Absolute 0.00 0.0 - 0.2 k/uL Morphology Normal Vascular duplex carotid bilateral Collection Time: 08/05/23 1:59 PM Result Value Ref Range Left bulb PSV 50.4 cm/s Left bulb EDV 6.8 cm/s Left CCA dist PSV 48.1 cm/s Left CCA dist EDV 9.9 cm/s Left CCA mid PSV 57.10 cm/s Left CCA mid EDV 8.78 cm/s Left CCA prox PSV 76.0 cm/s Left CCA prox EDV 8.8 cm/s Left ICA dist PSV 48.3 cm/s Left ICA dist EDV 9.3 cm/s Left ICA mid PSV 80.1 cm/s Left ICA mid EDV 13.3 cm/s Left ICA prox PSV 35.7 cm/s Left ICA prox EDV 8.4 cm/s Left ECA PSV 109.0 cm/s Left ECA EDV 5.60 cm/s Left vertebral PSV 47.8 cm/s Left vertebral EDV 10.40 cm/s Right bulb PSV 44.5 cm/s Right bulb EDV 8.2 cm/s Right cca dist PSV 52.7 cm/s Right CCA dist EDV 10.0 cm/s Right CCA mid PSV 46.20 cm/s Right CCA mid EDV 5.28 cm/s Right CCA prox PSV 81.4 cm/s Right CCA prox EDV 9.9 cm/s Right ICA dist PSV 69.0 cm/s Right ICA dist EDV 14.9 cm/s Right ICA mid PSV 67.0 cm/s Right ICA mid EDV 12.9 cm/s Right ICA prox PSV 42.6 cm/s Right ICA prox EDV 11.6 cm/s Right ECA PSV 98.8 cm/s Right ECA EDV 11.20 cm/s Right vertebral PSV 37.1 cm/s Right vertebral EDV 4.14 cm/s Body Surface Area 1.62 m2 Recent Labs 08/05/23 0426 WBC 10.4 RBC 3.45* HGB 11.0* HCT 35.5* MCV 102.9 MCH 31.9 MCHC 31.0 RDW 14.4 PLT 256 MPV 9.8 Recent Labs 08/03/23 1522 08/04/23 0337 08/05/23 0426 NA 139 < > 136 K 4.3 < > 4.3 CL 102 < > 102 CO2 24 < > 22 BUN 26* < > 23 CREATININE 1.8* < > 1.7* GLUCOSE 95 < > 85 CALCIUM 8.7 < > 8.2* PROT 7.1 -- -- LABALBU 3.0* -- -- BILITOT 0.3 -- -- ALKPHOS 69 -- -- AST 17 -- -- ALT 11 -- -- < > = values in this interval not displayed. Hemoglobin A1C Date Value Ref Range Status 04/16/2023 5.8 4.0 - 6.0 % Final Assessment : Primary Problem Syncope and collapse Active Hospital Problems Diagnosis Date Noted Seizures (HCC) [R56.9] 08/05/2023 SAH (subarachnoid hemorrhage) (HCC) [I60.9] 08/05/2023 Syncope and collapse [R55] 08/03/2023 73-year-old female with recent IPH with scattered SAH and SDH in April that was treated nonsurgically syncopal episode for 30 seconds without head trauma, with a confusional state afterwards for around 1 hour and currently displays speech pattern that is abnormal but not aphasic. Patient will receive repeat EEG and will continue on Keppra and Depakote Plan: Syncopal versus seizure-like episode -Repeat CT head showed stable left frontal encephalomalacia and no bleed - Last EEG in April --EEG normal, no epileptiform discharges. - Discontinued discontinued, Depakote 500 mg twice daily --Orthostatic vitals negative - MRI brain w wo pending --Carotid dopplers showed < 50% stenosis right ICA, mild plaque in right ICA. Mild < 50% stenosis left ICA, heterogenous plaque in left ICA -Continue Aricept 10 mg nightly Supine 124/56 Sittin/61 Standing 105/61 Hypertension Continue home antihypertensive medications -Norvasc 10 mg daily -Coreg 6.25 mg po BID Hypothyroidism - Continue home dose of levothyroxine DVT ppx: Lovenox 30 mg SC daily Code: Full code Patient or family members expressed understanding on topics that were discussed and all their questions were answered. Follow-up further recommendations after discussing case with the attending. The plan was discussed with the patient, patient's family and the medical staff. Consultations: IP CONSULT TO NEUROLOGY IP CONSULT TO PHYSICAL MEDICINE REHAB Patient is admitted as inpatient status because of co-morbidities listed above, severity of signs and symptoms as outlined, requirement for current medical therapies and most importantly because of direct risk to patient if care not provided in a hospital setting. Varinder Quijano MD Neurology Resident PGY-2 08/05/2023 4:17 PM Copy sent to Espinoza Logan MD Associated attestation - Bart Stock MD - 08/06/2023 12:29 AM EST I discussed the care of patient including pertinent history and exam findings, with the Neurology resident. I have seen and examined the patient on 08/04/2023 and the silva elements of all parts of the encounter have been performed by me. I agree with the assessment, plan and orders documented by the resident, with changes as needed. 73-year-old woman with lupus, CKD, hypertension IPH, SAH (05/07) discharged on Aricept and Keppra 500 mg twice daily which was switched to Depakote 500 mg twice daily. Fell down on the ground for around 30 seconds where she lost consciousness with confusion. Nonfocal neurological exam. Orthostatics negative. Differentials seizure, syncopal episode. EEG was normal. MRI of the brain showed old left frontal hematoma which was decreased without intracranial mass, numerous foci of susceptibility artifact within both cerebral hemispheres with the differentials of hypertensive microangiopathy Vs amyloidosis. Carotid dopplers showed < 50% stenosis right ICA, mild plaque in right ICA. Mild < 50% stenosis left ICA,, heterogenous plaque in left ICA. Will stop Keppra (mood changes ) and continue Depakote 500 mg twice daily and eventually stop in the outpatient setting (with left encephalomalacia due to IPH) and EEG is normal. Continue Aricept 10 mg nightly Aggressive lifestyle changes with good control of hypertension, lipid levels to prevent carotid disease Discharge planning Outpatient neurology clinic visit in 3 months This note is created with the assistance of a speech-recognition program. While intending to generate a document that actually reflects the content of the visit, the document can still have some errors including those of syntax and sound a- like substitutions which may escape proofreading. In such instances, actual meaning can be extrapolated by contextual derivation. Images from the original note were not included. Physical Therapy Physical Therapy Cancel Note DATE: 08/05/2023 NAME: Bhumika Wheatley : 1950 Patient not seen this date for Physical Therapy due to: Testing: Pt off the floor for testing Dopplers followed by dopplers. PT to continue to follow and address further as indicated. Pharmacy Note Renal Dose Adjustment Bhumika Wheatley is a 73 y.o. female. Pharmacist assessment of renally cleared medications. Recent Labs 08/04/23 0337 08/05/23 0426 BUN Recent Labs 08/04/23 0337 08/05/23 0426 CREATININE 1.6* 1.7* Estimated Creatinine Clearance: 24 mL/min (A) (based on SCr of 1.7 mg/dL (H)). Height: Ht Readings from Last 1 Encounters: 08/03/23 1.6 m (5' 3 ) Weight: Wt Readings from Last 1 Encounters: 08/03/23 59.2 kg (130 lb 8.2 oz) The following medication dose has been adjusted based upon renal function per P&T Guidelines: Amantadine 100 mg daily --> Amantadine 100 mg every other day Izabella Parker, PharmD, [facility] 08/05/2023 9:39 AM Pharmacy Note Renal Dose Adjustment Bhumika Wheatley is a 73 y.o. female. Pharmacist assessment of renally cleared medications. Recent Labs 08/03/23 1522 08/04/23 0337 BUN 26* 23 Recent Labs 08/03/23 1522 08/04/23 0337 CREATININE 1.8* 1.6* Estimated Creatinine Clearance: 26 mL/min (A) (based on SCr of 1.6 mg/dL (H)). Height: Ht Readings from Last 1 Encounters: 08/03/23 1.6 m (5' 3 ) Weight: Wt Readings from Last 1 Encounters: 08/03/23 59.2 kg (130 lb 8.2 oz) The following medication dose has been adjusted based upon renal function per P&T Guidelines: Amantadine 100 mg BID --> Amantadine 100 mg daily (borderline for even further dose decrease) Izabella Parker PharmD, [facility] 08/04/2023 1:16 PM PHARMACY NOTE: The electrolyte replacement protocol for potassium/magnesium has been discontinued per P&T guidelines because the patient has reduced renal function (CrCl < 30 mL/min). The patient's most recent potassium & magnesium levels are: Recent Labs 08/03/23 1522 08/04/23 0337 K 4.3 4.0 Estimated Creatinine Clearance: 26 mL/min (A) (based on SCr of 1.6 mg/dL (H)). For patients with decreased renal function (below 30ml/min) needing potassium/magnesium supplementation, please order individual bolus doses with appropriate monitoring. Please contact the inpatient pharmacy with any concerns. Thank you. Izabella Parker PharmD, [facility] 08/04/2023 12:30 PM Routine EEG completed Pharmacy Note Renal Dose Adjustment Bhumika Wheatley is a 73 y.o. female. Pharmacist assessment of renally cleared medications. Recent Labs 08/03/23 1522 BUN 26* Recent Labs 08/03/23 1522 CREATININE 1.8* Estimated Creatinine Clearance: 23 mL/min (A) (based on SCr of 1.8 mg/dL (H)). Estimated CrCl using [place] Body Weight: 23 mL/min (based on IBW 52.4 kg) Height: Ht Readings from Last 1 Encounters: 08/03/23 1.6 m (5' 3 ) Weight: Wt Readings from Last 1 Encounters: 08/03/23 59.2 kg (130 lb 8.2 oz) The following medication dose has been adjusted based upon renal function per P&T Guidelines: Enoxaparin 40 mg subcutaneously once daily changed to Enoxaparin 30 mg subcutaneously daily. Brad Ocasio Pharm.D. 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 She was initiated on azathioprine on June and Continued for 36 months Until July 14, 2022 . She has partial remission with stable renal function and subnephrotic range proteinuria. Will avoid to use a STEPHANIE or ARB due to the advanced CKD and risk of hyperkalemia. Apr, Chronic kidney disea se (CKD), stage IV (severe) (ICD-10 - N18.4) She has a CKD due to the partial recovery from HERLINDA. Her Serum Creatinine is 1.7-2 mg/dl. I have d/w her the importance of good HTN control to slow down the progression. 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 She had low titers of the ANCA antibodies. Apr, Anemia of renal dise ase (ICD-10 - D63.1) Hemoglobin is within the goal and she has adequate iron stores. No need for LANRE. Apr, Hypertensive chronic kidney disease w stg 1-4/unsp chr kdny (ICD-10 - I12.9) Blood pressure is Controlled and she appears to be euvolemic. Continue current dose of the Lasix, carvedilol and amlodipine Apr, Microscopic hematuri a (ICD-10 - R31.29) She has a persistent hematuria. She reported she had a cystoscopy by Dr. Gee which was unremarkable. I explained that she should follow-up again with Dr. Gee since she was given Cytoxan can cause a bladder tumor. She needs to be screened again with a cystoscopy. Apr, Secondary hyperparathyroidism (ICD-10 - N25.81) Her calcium within normal limit. We will check PTH vitamin D and phosphorus. 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 She was initiated on azathioprine on June and Continued for 36 months Until July 14, 2022 . She has partial remission with stable renal function and subnephrotic range proteinuria. Will avoid to use a STEPHANIE or ARB due to the advanced CKD and risk of hyperkalemia. December, Chronic kidney disea se (CKD), stage IV (severe) (ICD-10 - N18.4) She has a CKD due to the partial recovery from HERLINDA. Her Serum Creatinine is 1.7-2 mg/dl. I have d/w her the importance of good HTN control to slow down the progression. 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 She had low titers of the ANCA antibodies. December, Anemia of renal dise ase (ICD-10 - D63.1) Hemoglobin is within the goal and she has adequate iron stores. No need for LANRE. December, Hypertensive chronic kidney disease w stg 1-4/unsp chr kdny (ICD-10 - I12.9) Blood pressure is Controlled and she appears to be euvolemic. Continue current dose of the Lasix and amlodipine December, Microscopic hematuri a (ICD-10 - R31.29) She has a persistent hematuria. She reported she had a cystoscopy by Dr. Gee which was unremarkable. I explained that she should follow-up again with Dr. Gee since she was given Cytoxan can cause a bladder tumor. She needs to be screened again with a cystoscopy. December, Secondary hyperparathyroidism (ICD-10 - N25.81) PTH, calcium and phosphorus are within the goal. She has a low vitamin D and currently takes oral vitamin D . 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 She was initiated on azathioprine on June and will continue Azathioprine for 36 months [facility] July 14, 2022 . She has partial remission with stable renal function and subnephrotic range proteinuria. Will avoid to use a STEPHANIE or ARB due to the advanced CKD and risk of hyperkalemia. May, Chronic kidney disea se (CKD), stage IV (severe) (ICD-10 - N18.4) She has a CKD due to the partial recovery from HERLINDA. Her Serum Creatinine is 1.5-1.9 mg/dl. 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 She had low titers of the ANCA antibodies. May, Anemia of renal dise ase (ICD-10 - D63.1) Hemoglobin is within the goal and she has adequate iron stores. No need for LANRE. May, Hypertensive chronic kidney disease w stg 1-4/unsp chr kdny (ICD-10 - I12.9) Blood pressure is high but she appears to be euvolemic. Continue current dose of the Lasix and amlodipine May, Microscopic hematuri a (ICD-10 - R31.29) She has a persistent hematuria. She reported she had a cystoscopy by Dr. Gee which was unremarkable. I explained that she should follow-up again with Dr. Gee since she was given Cytoxan can cause a bladder tumor. She needs to be screened again with a cystoscopy. May, Secondary hyperparathyroidism (ICD-10 - N25.81) PTH, calcium and phosphorus are within the goal. 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 She was initiated on azathioprine in June 2019 and will continue Azathioprine for 36 months [facility] June 2022 . She has partial remission with stable renal function and subnephrotic range proteinuria. Will avoid to use a STEPHANIE or ARB due to the advanced CKD and risk of hyperkalemia. Jan, Chronic kidney disea se (CKD), stage IV (severe) (ICD-10 - N18.4) She has a CKD due to the partial recovery from HERLINDA. Her Serum Creatinine is 1.5-1.9 mg/dl. 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 She had low titers of the ANCA antibodies. Jan, Anemia of renal dise ase (ICD-10 - D63.1) Hemoglobin is within the goal and she has adequate iron stores. No need for LANRE. Jan, Hypertensive chronic kidney disease w stg 1-4/unsp chr kdny (ICD-10 - I12.9) Blood pressure is high but she appears to be euvolemic. I have increased amlodipine 10 mg daily. Continue current dose of the Lasix 20 mg daily. Jan, Microscopic hematuri a (ICD-10 - R31.29) She has a persistent hematuria. She reported she had a cystoscopy by Dr. Gee which was unremarkable. I explained that she should follow-up again with Dr. Gee since she was given Cytoxan can cause a bladder tumor. She needs to be screened again with a cystoscopy. Jan, Secondary hyperparathyroidism (ICD-10 - N25.81) PTH, calcium and phosphorus are within the goal. 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 She was initiated on azathioprine in June 2019 and will continue Azathioprine for 36 months [facility] June 2022 . She has partial remission with stable renal function and subnephrotic range proteinuria. Will avoid to use a STEPHANIE or ARB due to the advanced CKD and risk of hyperkalemia. Sep, Chronic kidney disea se (CKD), stage IV (severe) (ICD-10 - N18.4) She has a CKD due to the partial recovery from HERLINDA. Her Serum Creatinine is 1.5-1.9 mg/dl. 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 She had low titers of the ANCA antibodies. Sep, Anemia of renal dise ase (ICD-10 - D63.1) Hemoglobin is within the goal and she has adequate iron stores. No need for LANRE. Sep, Hypertensive chronic kidney disease w stg 1-4/unsp chr kdny (ICD-10 - I12.9) Blood pressure is high but she appears to be euvolemic. I have increased amlodipine 10 mg daily. Continue current dose of the Lasix 20 mg daily. Sep, Microscopic hematuri a (ICD-10 - R31.29) She has a persistent hematuria. She reported she had a cystoscopy by Dr. Gee which was unremarkable. I explained that she should follow-up again with Dr. Gee since she was given Cytoxan can cause a bladder tumor. She needs to be screened again with a cystoscopy. Sep, Secondary hyperparathyroidism (ICD-10 - N25.81) PTH, calcium and phosphorus are within the goal. She has a low vitamin D and currently takes oral vitamin D supplement. 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 She was initiated on azathioprine in June 2019 and will continue Azathioprine for 36 months . She has partial remission with stable renal function and subnephrotic range proteinuria. Will avoid to use a STEPHANIE or ARB due to the advanced CKD and risk of hyperkalemia. Jun, Chronic kidney disea se (CKD), stage IV (severe) (ICD-10 - N18.4) She has a CKD due to the partial recovery from HERLINDA. Her Serum Creatinine is 1.5-1.9 mg/dl. 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 She had low titers of the ANCA antibodies. Jun, Anemia of renal dise ase (ICD-10 - D63.1) Hemoglobin is within the goal and she has adequate iron stores. No need for LANRE. Jun, Hypertensive chronic kidney disease w stg 1-4/unsp chr kdny (ICD-10 - I12.9) Blood pressure is high but she appears to be euvolemic. I have increased amlodipine 10 mg daily. Continue current dose of the Lasix 20 mg daily. Jun, Microscopic hematuri a (ICD-10 - R31.29) She has a persistent hematuria. She reported she had a cystoscopy by Dr. Gee which was unremarkable. I explained that she should follow-up again with Dr. Gee since she was given Cytoxan can cause a bladder tumor. She needs to be screened again with a cystoscopy. Jun, Secondary hyperparathyroidism (ICD-10 - N25.81) PTH, calcium and phosphorus are within the goal. She has a low vitamin D and currently takes oral vitamin D supplement. Jun, Asymptomatic bacteri uria (ICD-10 - R82.71) No need for antibiotics [facility] Other [id number] Note [id number]:127[facility] 11-05-2020 [id number]:127[facility]03-22-2021 NotePatient: BHUMIKA WHEATLEY Age: 70 years Sex: Female : 1950 Associated Diagnoses: None Author: Bianca Peoples MD History and Physical HOSPITAL REGULATIONS: ALL Positive Important Negative Findings Shall Be Recorded 70yoWF with h/o HTN, breast cancer, lupus, presents with new onset intermittent binocular diplopia and headache for 1 week. Pt notes no jaw claudication, scalp tenderness, proximal muscle weakness, fevers/chills. ESR 99 (0-31) and CRP 6.91 (<0.75) elevated with normal platelets. PAST OCULAR HISTORY: Cataracts, glaucoma suspect OU. PAST MEDICAL HISTORY: 1. Lupus nephritis 2. Breast cancer s/p radiation 3. Rheumatoid arthritis 4. Hypertension 5. thyroid cancer 6. BCC forehead 7. Vertigo PSYCHOSOCIAL HISTORY: No qualifying data available. SYSTEMIC MEDICATIONS: 1. No qualifying data available ALLERGIES: 1. Contrast Dye (Rash) 2. Valium (memory loss) REVIEW OF SYSTEMS: No pertinent positive. PHYSICAL EXAMINATION: VITAL SIGNS: BP: 118/78 HR: 92 RR: 18 GENERAL: Awake, alert and oriented x3, well developed, well nourished. No acute distress. HEART: Regular rate and rhythm. LUNGS: Clear bilaterally. ABDOMEN: Soft, nontender, nondistended. EXTREMITIES: No pitting edema. EYES: Ophthalmic examination revealed a visual acuity of 20/30 in the right eye and 20/30 in the left eye. 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 Pupils, motility, confrontation to visual aguiar are within normal limits bilaterally. Pressures are measured to be within normal limits. Temporal arteries have strong pulse without cord. Slit-lamp examination revealed normal conjunctivae, cornea, anterior chamber, iris, and lens bilaterally. Dilated fundus examination shows an increased C:D ratio 0.65 in the right eye and 0.6 in the left eye. She has an inactive choroiretinal scar inferonasally in the left eye. ASSESSMENT AND PLAN: 1. Presumed giant cell arteritis. Plan for temporal artery biopsy, right side; possible left. Underlocal anesthetic. After risks, benefits, alternatives as well as expectations were discussed to include but not limited to infection, bleeding, loss of vision or loss of the eye, need for additional surgery, unattractive scarring, unacceptable cosmesis, pain, loss of hair, loss of sensation, brow droop, inability to close eyelid. The patient expressed understanding and wishes to proceed with surgery. Informed consent was obtained. 2. COVID-19: The patient was briefed on the condition of COVID-19 and the increased risk of its contraction in the hospital setting. The patient understands that these risks occur and she is willing to assume these risks given the severity of diminishment in activities of daily living. No change in H&P upon review.[facility] CampusComment on above:Result Comment: Electronically Signed By: Bianca Peoples MD\Date and Time Signed: 11/03/20 07:37 EDTEvaluation noteNo InformationNort Studio Other Evaluation note* Diagnosis HERLINDA (acute kidney injury) (HCC) Acute kidney failure, unspecified Lupus nephritis (HCC) Systemic lupus erythematosus documented in this encounter [employer] note* Diagnosis Syncope and collapse- Primary Syncope and collapse Seizures (HCC) Other convulsions SAH (subarachnoid hemorrhage) (HCC) [facility]arachnoid hemorrhage [facility] N[facility] - Reported* Type Description Date Medical History THYROID CANCER Medical History BREAST CANCER Medical History BASAL CELL FOREHEAD Medical History SMOKER Medical History UNSPECIFIED CEREBROVASCULAR DISE ASE Medical History PERSONAL HISTORY OF NALIGNANT NE OPLASM OF BREAST Medical History kidney stones Surgical History TUBALIGATION Surgical History THYROID SURGERY Surgical History RIGHT BREAST LUMPECTOMY Surgical History BIOPSY ON THE RIGHT SIDE OF THE BRAIN 11/03/2020 Hospitalization History SEE ABOVE Hospitalization History Lupus issues, Renal issu es [employer] Other History general Narrative - Reported* Type Description Date Medical History THYROID CANCER Medical History BREAST CANCER Medical History BASAL CELL FOREHEAD Medical History SMOKER Medical History UNSPECIFIED CEREBROVASCULAR DISE ASE Medical History PERSONAL HISTORY OF NALIGNANT NE OPLASM OF BREAST Medical History kidney stones Medical History FALL WITH BRAIN MEMORY Surgical History TUBALIGATION Surgical History THYROID SURGERY Surgical History RIGHT BREAST LUMPECTOMY Surgical History BIOPSY ON THE RIGHT SIDE OF THE BRAIN 11/03/2020 Hospitalization History SEE ABOVE Hospitalization History Lupus issues, Renal issu es Hospitalization History FALL BRAIN BLEED 3 [employer] Other Summary Purpose Family History No Family History Records FoundNo Family History Records FoundNo Family History Records FoundNo Family History Records FoundNo Family History Records FoundNo Family History Records FoundNo Family History Records Found Advance Directives No Advanced Directives Records FoundLatest Code Status on File Code Status Date Activated Date Inactivated Comments Full Code 04/16/2023 2:54 AM 04/20/2023 8:18 PM Latest Code Status on File Code Status Date Activated Date Inactivated Comments Full Code 08/03/2023 11:19 PM Code Status History Code Status Date Activated Date Inactivated Comments Full Code 04/16/2023 2:54 AM 04/20/2023 8:18 PM Healthcare Agents on File Name Relationship Healthcare Agent Relationship Communication Corina Wheatley Spouse Primary Decision Maker [phone] (Mobile) Healthcare Agents on File Name Relationship Healthcare Agent Relationship Communication Corina Wheatley Spouse Primary Decision Maker [phone] (Mobile) Hospital Course Note Send Summary: Discharge Summ ellen Providers: Provider RoleProvider Name ReferringRequired, No Pcp ConsultingRenal Consult Team PrimaryRequired, No Pcp AttendingWilberto Morgan Note Recipients: Wilberto Morgan MD Discharge: Summary: Admission Date: .08-Mar-2019 11:39:00 Discharge Date: 13-Mar-2019 Attending Physician at Discharge: Wilberto Morgan Admission Reason: lupus nephritis vs ANCA vasculitis Final Discharge Diagnoses: lupus nephritis Procedures: none Condition at Discharge: Satisfactory Disposition at Discharge: .Home Vital Signs: T PRBPSpO2 [id number]% Date/Time03/13 6: 6: 6: 6: 6:45 Range(36.2C - 36.9C ) (73 - 81 ) (18 - 21 ) (115 - 135 )/ (65 - 70 ) (97% - 99% ) Highest temp of 36.9 C was recorded at 03/12 15:00 Physical Exam: Constitutional: in no acute distress, resting comfortably in bed Eyes: PERRL, EOMI, clear sclera Resp/thorax: CTAB, normal breath sounds with good chest expansion, thorax symmetric. No wheezes/rales/rhonchi [employer] (more content not included)... Additional Source Comments INFORMATION SOURCE (unrecogn ized section and content) DATE CREATED AUTHOR 10/25/2018 [facility] DATE CREATED AUTHOR AUTHOR'S ORGANIZ ATION 03/20/2019 [facility] DATE CREATED AUTHOR AUTHOR'S ORGANIZ ATION 03/14/2021 Noel Richard [facility] DATE CREATED AUTHOR AUTHOR'S ORGANIZ ATION 12/23/2022 [facility] DATE CREATED AUTHOR AUTHOR'S ORGANIZ ATION 07/22/2023 [facility] DATE CREATED AUTHOR AUTHOR'S ORGANIZ ATION 08/17/2023 [facility] DATE CREATED AUTHOR AUTHOR'S ORGANIZ ATION 08/28/2023 [facility] REASON FOR VISIT (unrecogniz ed section and content) Reason Comments Fall Altered Mental Status Specialty Diagnoses / Procedures Referred By Shefali sierra Referred To Contact Diagnoses Syncope and collapse Bart Stock MD [address] [address] [facility] [address] [place] [address] Referral ID Status Reason Start Date Expiration Date Visits Re quested Visits Authorized [id number] 1 1 Care Teams (unrecognized sec tion and content) Nitroglycerin Distributor Relationship Specialty Start Date End Date Espinoza Melo MD [address] [place] [address] (Fax) PCP - General 04/20/23 Ania Arnaldo [address] [place] [id number] Physician Nephrology 04/18/23 Nitroglycerin Distributor Relationship Specialty Start Date End Date Espinoza Melo MD [address] [place] [address] (Fax) PCP - General 04/20/23 Ania Arnaldo [address] [place] [address] [place] [address] Physician Nephrology 04/18/23 Nitroglycerin Distributor Relationship Specialty Start Date End Date Espinoza Melo MD [address] [place] [address] (Fax) PCP - General 04/20/[address] [place] [address] Physician Nephrology 04/18/23 Nitroglycerin Distributor Relationship Specialty Start Date End Date Espinoza Melo MD [address] [place] [address] PCP - General 04/20/[address] [address] Physician Nephrology 04/18/23 Ordered Prescriptions (unrec ognized section and content) Prescription Sig Dispensed Refills Start Date End Da te amantadine (SYMMETREL) 100 MG capsule Take 1 capsule by mouth every other day 60 capsule 3 08/08/2023 divalproex (DEPAKOTE) [address] tablet Take 1 tablet by mouth 2 times daily 90 tablet 3 08/07/2023 Scheduled Active and Recently Administ ered Medications (unrecognized section and content) Medication Order 08/05/2023 08/06/2023 08/07/2023 amantadine (SYMMETREL) capsule 100 mg 100 mg, Oral, EVERY OTHER DAY, First dose (after last modification) on 08/06/23 at 0900, Until Discontinued 09 (Given - Provider: Mitzy Campos RN) amLODIPine (NORVASC) tablet 10 mg 10 mg, Oral, DAILY, First dose on Ruby 08/04/23 at 0900, Until Discontinued 0944 (Given - Provider: Xiomy Garcia RN) 0905 (Given - Provider: Mitzy Campos RN) 0900 (Due) carvedilol (COREG) tablet 6.25 mg 6.25 mg, Oral, 2 TIMES DAILY WITH MEALS, First dose on Ruby 08/04/23 at 0800, Until Discontinued, Administer with food to minimize the risk of orthostatic hypotension 0944 (Given - Provider: Xiomy Garcia RN)185 (Not Given - Provider: Xiomy Garcia RN - Reason: Other - Comment: hold per Dr. Gomez) 09 (Given - Provider: Mitzy Campos RN)180 (Given - Provider: Mitzy Campos RN) 08 (Given - Provider: Mitzy Campos RN - Comment: ok to give per dr quijano)1700 (Due) citalopram (CELEXA) tablet 10 mg 10 mg, Oral, DAILY, First dose on Ruby 08/04/23 at 0900, Until Discontinued 0944 (Given - Provider: Xiomy Garcia RN) 09 (Given - Provider: Mitzy Campos RN) 08 (Given - Provider: Mitzy Campos RN) divalproex (DEPAKOTE) DR tablet 500 mg 500 mg, Oral, 2 TIMES DAILY, First dose (after last modification) on Ruby 08/04/23 at 2100, Until Discontinued, Do not crush or break. 0944 (Given - Provider: Xiomy Garcia RN)2041 (Given - Provider: Lucía Leigh RN) 09 (Given - Provider: Mitzy Campos RN)2145 (Given - Provider: Bea Goddard RN) 08 (Given - Provider: Mitzy Campso RN)2099 (Due) donepezil (ARICEPT) tablet 10 mg 10 mg, Oral, NIGHTLY, First dose on Ruby 08/04/23 at 2100, Until Discontinued 2041 (Given - Provider: Lucía Leigh RN) 2145 (Given - Provider: Bea Godadrd RN) 2100 (Due) enoxaparin Sodium (LOVENOX) injection 30 mg 30 mg, SubCUTAneous, DAILY, First dose on Ruby 08/04/23 at 0900, Until Discontinued, Indication of Use: Prophylaxis-DVT/PE, Administer by deep subCUTAneous injection with pt lying down. Alternate injection sites on abdominal wall. Do not rub site after injection. Check with provider prior to any invasive procedure. Renal dose adjustment per P&T Guidelines 0945 (Given - Provider: Xiomy Garcia RN) 09 (Given - Provider: Mitzy Campos RN) 0820 (Given - Provider: Mitzy Campos RN) levothyroxine (SYNTHROID) tablet 88 mcg 88 mcg, Oral, DAILY, First dose on Ruby 08/04/23 at 0700, Until Discontinued, Tube feeding (TF) interaction, obtain physician order to manage, recommend holding TF for 30 minutes before and after dose. 0944 (Given - Provider: Xiomy Garcia RN) 0905 (Given - Provider: Mitzy Campos, RN) 0820 (Given - Provider: Mitzy Campos, RN) sodium chloride flush 0.9 % injection 5-40 mL 5-40 mL, IntraVENous, EVERY 12 HOURS SCHEDULED (2 times per day), First dose on Tue08/03/23 at 2345, Until Discontinued, For Line Patency: Peripheral IV = 5 mL; Midline or Central Line = 10 mL/lumen. If following IV push medication, administer flush at same rate as the IV push. Flush volume is determined by type of infusion therapy being given. For non-viscous solutions use: Peripheral IV = 5 mL Midline or Central Line = 10 mL/lumen For viscous solutions (i.e. blood components, parenteral nutrition, contrast media, or after obtaining blood sample) use: Peripheral IV = 10 mL Midline or Central Line = 20 mL/lumen 0942 (Given - Provider: Xiomy Garcia RN)2047 (Given - Provider: Lucía Leigh RN) 0906 (Given - Provider: Mitzy Campos, ROWDY)2147 (Given - Provider: Bea Goddard RN) 0829 (Given - Provider: Mitzy Campos, RN)2100 (Due) PRN Medication Order 08/05/2023 08/06/2023 08/07/2023 0.9 % sodium chloride infusion IntraVENous, at 5-250 mL/hr, PRN, if patient receiving piggyback infusions and maintenance fluids are not ordered OR KVO fluids to protect IV site / prevent frequent line interruptions/ long duration, Starting on Tue08/03/23 at 2319, For piggyback infusion, administer at same rate as piggyback for a total of 25 mL. Enter 25 mL into dose field and piggyback rate into rate field of order. If piggyback is infusing at a rate less than 100 mL/hr, enter 25 mL into dose field and 100 mL/hr into rate field of order. For KVO fluids, enter rate of 20 mL/hr or less into rate field of order. acetaminophen (TYLENOL) suppository 650 mg(Linked Group 1) 650 mg, Rectal, EVERY 6 HOURS PRN, Starting on Tue08/03/23 at 2319, Until Discontinued, Pain Mild (1-3), Fever, For temp greater than 100.4 F (38 C), Administer if oral route cannot be used. acetaminophen (TYLENOL) tablet 650 mg(Linked Group 1) 650 mg, Oral, EVERY 6 HOURS PRN, Starting on Tue08/03/23 at 2319, Until Discontinued, Pain Mild (1-3), Fever, For temp greater than 100.4 F (38 C), Maximum dose of acetaminophen is 4000 mg from all sources in 24 hours. gadoteridol (PROHANCE) injection 12 mL (COMPLETED) 12 mL, IntraVENous, IMG ONCE PRN, 1 dose, Starting on Tue08/05/23 at 1509, Until Tue08/05/23 at 1522, Other 1522 (Given - Provider: Rob Manzano) LORazepam (ATIVAN) injection 4 mg 4 mg, IntraVENous, EVERY 5 MIN PRN, Starting on Tue08/03/23 at 2319, Until Discontinued, Seizures, May repeat dose (4 mg) X 1 for seizures lasting more than 5 minutes. Notify provider if administered for seizure. ondansetron (ZOFRAN) injection 4 mg(Linked Group 2) 4 mg, IntraVENous, EVERY 6 HOURS PRN, Starting on Tue08/03/23 at 231, Until Discontinued, Nausea, Vomiting, Administer if oral route cannot be used. ondansetron (ZOFRAN-ODT) disintegrating tablet 4 mg(Linked Group 2) 4 mg, Oral, EVERY 8 HOURS PRN, Starting on Tue08/03/23 at 2319, Until Discontinued, Nausea, Vomiting polyethylene glycol (GLYCOLAX) packet 17 g 17 g, Oral, DAILY PRN, Starting on Tue08/03/23 at 2318, Until Discontinued, Constipation, First line therapy for constipation sodium chloride flush 0.9 % injection 5-40 mL 5-40 mL, IntraVENous, PRN, Starting on Tue08/03/23 at 2318, Until Discontinued, Line Care, After every IV line use, For Line Patency: Peripheral IV = 5 mL; Midline or Central Line = 10 mL/lumen. If following IV push medication, administer flush at same rate as the IV push. Flush volume is determined by type of infusion therapy being given. For non-viscous solutions use: Peripheral IV = 5 mL Midline or Central Line = 10 mL/lumen For viscous solutions (i.e. blood components, parenteral nutrition, contrast media, or after obtaining blood sample) use: Peripheral IV = 10 mL Midline or Central Line = 20 mL/lumen Linked Groups Order Group 1: acetaminophen (TYLENOL) tablet 650 mgJump to med 650 mg, Oral, EVERY 6 HOURS PRN, Starting on Tue08/03/23 at 2319, Until Discontinued, Pain Mild (1-3), Fever, For temp greater than 100.4 F (38 C)
Maximum dose of acetaminophen is 4000 mg from all sources in 24 hours.
Or acetaminophen (TYLENOL) suppository 650 mgJump to med 650 mg, Rectal, EVERY 6 HOURS PRN, Starting on Tue08/03/23 at 2319, Until Discontinued, Pain Mild (1-3), Fever, For temp greater than 100.4 F (38 C)
Administer if oral route cannot be used.
Group 2: ondansetron (ZOFRAN-ODT) disintegrating tablet 4 mgJump to med 4 mg, Oral, EVERY 8 HOURS PRN, Starting on Tue08/03/23 at 2319, Until Discontinued, Nausea, Vomiting Or ondansetron (ZOFRAN) injection 4 mgJump to med 4 mg, IntraVENous, EVERY 6 HOURS PRN, Starting on Tue08/03/23 at 2319, Until Discontinued, Nausea, Vomiting
Administer if oral route cannot be used.
FOR RECORDS PERTAINING TO PATIENTS WHO ARE [...] BE BASED ON THE PRIMARY CLINICAL RECORDS. [employer] [facility]. provides no warranty or guarantee of the accuracy or completeness of information in this document.
[2023-08-29 09:20] LABS: Basophils Absolute Auto 0.1 10^3/uL (0.0-0.1); Basophils Percent Auto 0.4 % (0.2-2.0); Eosinophils Absolute Auto 0.1 10^3/uL (0.0-0.7); Eosinophils Percent Auto 0.6 % (0.9-7.0); Hematocrit 30.1 % (36.0-48.0); Hemoglobin 9.4 g/dL (12.0-16.0); Immature Granulocytes Pct Auto 1.8 % (0.0-0.5); Lymphocytes Percent Auto 5.8 % (20.5-60.0); Mean Corpuscular HGB Conc 31.2 g/dL (29.9-35.2); Mean Corpuscular Hemoglobin 32.4 pg (26.7-34.0); Mean Corpuscular Volume 103.8 fL (81.0-99.0); Mean Platelet Volume 9.5 fL (9.5-13.5); Monocytes Percent Auto 11.6 % (1.7-12.0); Neutrophils Absolute Auto 13.6 10^3/uL (1.4-6.5); Neutrophils Percent Auto 79.8 % (43.0-75.0); Platelet Count 429 10^3/uL (150-450); Red Cell Distribution Width 14.4 % (11.0-15.0); White Blood Count 17.1 10^3/uL (4.0-11.0)
== END 2023-08-29 05:50 | disposition home or self-care (01) ==
LOC: LAB 05:49
PROVIDERS: PCP Family Medicine; Visit Provider Family Medicine
DX: D72.829 Elevated white blood cell count, unspecified (principal)
CPT/HCPCS: 36415; 85025

== ENCOUNTER 2023-09-07 00:47 | Outpatient (REF) | payer MEDICARE, SELFPAY ==
--- OUTSIDE RECORDS SUMMARY | 2023-09-07 00:53 | XMS_ITS | CCD ---
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 Name Role Phone MAYI ADAMS Attending Unavailable MAYI ADAMS Referring Unavailable Arnaldo, Ania Unavailable HEMEYER ., DR FIERRO Admitting Unavailable HEMEYER ., DR FIERRO Attending Unavailable HEMEYER ., DR FIERRO Consulting Unavailable HEMEYER ., DR FIERRO Primary Care Unavailable ARNALDO, ANIA Consulting Unavailable ARNALDO, ANIA Admitting Unavailable HEMEYER ., DR FIRERO Primary Care Unavailable ARNALDO, ANIA Attending Unavailable [...] Unavailable Hemeyer Espinoza BARROS Primary Care Provider [phone] AUNDREA MIXON Referring Unavailable ESPINOZA MELO Primary Care Unavailable ESPINOZA MELO Primary Care Unavailable DARON CHRISTIANSON Referring Unavailable ESPINOZA MELO Primary Care Unavailable HARRIET GOODMAN Referring Unavailable HARRIET GOODMAN Attending Unavailable ESPINOZA MELO Primary Care Unavailable HARRIET GOODMAN Attending Unavailable GOODMAN, HARRIET L Referring Unavailable HEMEYER, EDWARD J Referring [facility] Primary Care Unavailable HEMEYER, EDWARD J Primary Care Unavailable DIMITRISFARZANA TONG Referring Unavailable GOODMANKORINY L Attending Unavailable HEMEYER, EDWARD J Primary Care Unavailable GOODMAN, HARRIET L Referring Unavailable GOODMAN, HARRIET L Attending Unavailable HEMEYER, EDWARD J Primary Care Unavailable GOODMAN, HARRIET L Referring Unavailable GOOMDAN, HARRIET L Referring Unavailable GOODMAN, HARRIET L Attending Unavailable [facility] Primary Care Unavailable HEMEYER, EDWARD J Primary Care Unavailable BOBBY ROBLERO Referring Unavailable TREMAINE MAE Attending Unavailable TREMAINE MAE Admitting Unavailable CHANNING THOMPSON Consulting Unavailable ROB PORTILLO Consulting Unavailable ANALILIA DIANA Consulting Unavailable LOPEZ WALKER Consulting Unavailable HARRIET GOODMAN Consulting Un[facility] Primary Care Unavailable BART STOCK Attending Unavailable BART STOCK Consulting Unavailable BART STOCK Admitting Unavailable DEE CARRANZA Consulting Unavailable GOODMAN, HARRIET L Referring Unavailable GOODMAN, HARRIET L Attending Unavailable HEMEYER, EDWARD J Primary Care Unavailable GOODMAN, HARRIET L Referring Unavailable GOODMAN, HARRIET L Attending Unavailable HEMEYER, EDWARD J Primary Care Unavailable GOODMAN, HARRIET L Referring Unavailable GOODMAN, HARRIET L Attending Unavailable [facility] Primary Care Unavailable GOODMAN HARRIET L Attending Unavailable HEMEYER, EDWARD J Primary Care Unavailable GOODMAN, HARRIET L Referring Unavailable [facility] Primary Care Unavailable GOODMAN, HARRIET L Attending Unavailable GOODMAN, HARRIET L Referring Unavailable HEMEYER, EDWARD J Primary Care Unavailable GOODMAN, HARRIET L Attending Unavailable GOODMAN, HARRIET L Referring Unavailable YESSY PACKER Referring Unavailable TRENA MCCLELLAN Attending Unavailable [facility] Primary Care Unavailable JANIE ARCHULETA. Admitting Unavailable CORINA DISLA Referring Unavailable [facility] Consulting Unavailable YESSY PACKER Consulting Unavailable CORINA DISLA Consulting Unavailable [facility] Consulting U navailable TRENA MCCLELLAN Attending Unavailable TRENA MCCLELLAN Referring Unavailable ESPINOZA MELO Primary Care Unavailable TRENA MCCLELLAN Attending Unavailable TRENA MCCLELLAN Referring Unavailable ESPINOZA MELO Primary Care Unavailable SHANTI GORMAN Attending Unavailable SHANTI GORMAN Referring Unavailable ESPINOZA MELO J Primary Care Unavailable DORCAS MITCHELL Referring Unavailable QUENTINJENN MORTONVY J Primary Care Unavailable MANUEL VALENZUELA Referring Unavailable ESPINOZA MELO Primary Care Unavailable Allergies Allergy Classification Reported Allergen(s) Allergy Type Date of Onset Reaction(s) Facility (9 sources) Contrast media Propensity to adverse reactions Unknown [facility] Other (9 sources) Penicillin Drug Allergy Unknown [facility] Other (1 source) HYDROcodone Drug Allergy 0 [facility] Rep[facility] (1 source) predniSONE Drug Allergy 0 [facility] (1 source) traMADol Drug Allergy 0 [facility] Rep[facility] (1 source) Tylenol-Codeine #3 Drug allergy (disorder) 0 [facility] Repository (4 sources) diazePAM; Translations: [DIAZEPAM] Drug Allergy 3 [employer] (1 source) Gadolinium Derivatives Propensity to adverse reactions to drug 3 Rash [facility] (1 source) Iodinated Contrast Media Propensity to adverse reactions to drug 3 Rash [facility] Medications Current Medications Medication Drug Class(es) [...] Oral, 2 TIMES DAILY, First dose on Tue08/04/23 at 0900, Until Discontinued ascorbic acid 500 [...] 10 mg, Oral, DAILY, First dose on [facility] 08/04/23 at 0900, Until Discontinued take 2 tablets by [facility] every twenty-four hours amLODIPine Besylate 5 MG 2 tablet Orally Daily for 90 day(s) Active take 1 tablet by [facility] every twenty-four hours amLODIPine Besylate 5 MG 1 tablet Orally Daily for 90 day(s) Active carvedilol 6.25 mg oral tablet (8 sources) alpha-Adrenergic Adilson, beta-Adrenergic Adilson Start: 04-20-2023 take 6.25 mg by mouth twice daily at mealtime 6.25 mg, Oral, 2 TIMES DAILY WITH MEALS, First dose on [facility] 08/04/23 at 0800, Until Discontinued Administer with food to minimize the risk of orthostatic hypotension citalopram 10 mg oral tablet (8 sources) Serotonin Reuptake Inhibitor Start: 04-21-2023 take 10 mg by mouth once daily 10 mg, Oral, DAILY, First dose on [facility] 08/04/23 at 0900, Until Discontinued donepezil hydrochloride 10 mg oral tablet (9 sources) Start: 05-18-2023 take 10 mg by mouth once daily 10 mg, Oral, NIGHTLY, First dose on [facility] 08/04/23 at 2100, Until Discontinued Start: 05-18-2023 take 1 tablet by [facility] once daily donepezil (ARICEPT) 10 MG tablet [...] 30 mg, SubCUTAneous, DAILY, First dose on [facility] 08/04/23 at 0900, Until Discontinued Indication [...] Once a day Active polyethylene glycol 3350 13242 mg powder for oral solution (1 source) [...] ointment (3 sources) Corticosteroid Start: 05-03-2023 End: 12-24-2023 triamcinolone (KENALOG) 0.1 % ointment APPLY TO [...] Eosinophils (Bld) [#/Vol] 0.2 10*3/uL Normal 0.0-0.4 [facility] Comment on above: Performed By: #### C ANSELMO BOYD, , 07783-2 #### [facility] ([id number]) [address] [place] [address] Eosinophils/100 WBC (Bld) 1.0 % Normal [facility] Comment on above: Performed By: #### C ANSELMO BOYD, , 54304-2 #### [facility] ([id number]) [address] [place] [address] Erythrocyte distribution width (RBC) [Ratio] 14.4 % Normal 11.5-15.0 [facility] Comment on above: Performed By: #### C ANSELMO BOYD, , 12963-8 #### [facility] ([id number]) [address] [place] [address] Hematocrit (Bld) [Volume fraction] 30.7 % Low 35-47 [facility] Comment on above: Performed By: #### C BCA, CMP, , 25500-5 #### [facility] ([id number]) [address] [place] [address] Hemoglobin (Bld) [Mass/Vol] 10.0 g/dL Low 11.7-15.5 [facility] Comment on above: Performed By: #### C BCA, CMP, , 52753-3 #### [facility] ([id number]) [address] [place] [address] Lymphocytes (Bld) [#/Vol] 0.9 10*3/uL Low 1.0-3.5 [facility] Comment on above: Performed By: #### C BCA, CMP, , 07421-6 #### [facility] ([id number]) [address] [place] [address] Lymphocytes/100 WBC (Bld) 5.8 % Normal [facility] Comment on above: Performed By: #### C BCA, CMP, , 03653-2 #### [facility] ([id number]) [address] [place] [address] MCH (RBC) [Entitic mass] 31.6 pg Normal 27-34 [facility] Comment on above: Performed By: #### C BCA, CMP, , 17857-7 #### [facility] ([id number]) [address] [place] [address] MCHC (RBC) [Mass/Vol] 32.6 g/dL Normal 32-36 [facility] Comment on above: Performed By: #### C BCA, CMP, , 37216-3 #### [facility] ([id number]) [address] [place] [address] MCV (RBC) [Entitic vol] 97 fL Normal 80-100 [facility] Comment on above: Performed By: #### C BCA, CMP, , 31330-3 #### [facility] ([id number]) [address] [place] [address] Monocytes (Bld) [#/Vol] 3.3 10*3/uL High 0-0.9 [facility] Comment on above: Performed By: #### C BCA, CMP, , 03269-2 #### [facility] ([id number]) [address] [place] [address] Monocytes/100 WBC (Bld) 21.2 % Normal [facility] Comment on above: Performed By: #### C BCA, CMP, , 72396-0 #### [facility] ([id number]) [address] [place] [address] MYELOCYTE 2.9 % Normal [facility] Comment on above: Performed By: #### C BCA, CMP, , 85330-7 #### [facility] ([id number]) [address] [place] [address] Neutrophils (Bld) [#/Vol] 10.8 10*3/uL High 1.5-6.6 [facility] Comment on above: Performed By: #### C BCA, CMP, , 16926-0 #### [facility] ([id number]) [address] [place] [address] Platelet mean volume (Bld) [Entitic vol] 7.8 fL Normal 7-12 [facility] Comment on above: Performed By: #### C BCA, CMP, , 31925-1 #### [facility] ([id number]) [address] [place] [address] Platelets (Bld) [#/Vol] 201 10*3/uL Normal 150-450 [facility] Comment on above: Performed By: #### C BCA, CMP, , 64399-5 #### [facility] ([id number]) [address] [place] [address] POLYCHROMASIA 1+ Abnormal NONE [facility] Comment on above: Performed By: #### C BCA, CMP, , 37300-3 #### [facility] ([id number]) [address] [place] [address] RBC COUNT 3.17 X10E12/L Low 3.80-5.20 [facility] Comment on above: Performed By: #### C BCA, CMP, , 93245-5 #### [facility] ([id number]) [address] [place] [address] SEG NEUTROPHIL 69.1 % Normal [facility] Comment on above: Performed By: #### C BCA, CMP, , 20632-4 #### [facility] ([id number]) [address] [place] [address] WBC (Bld) [#/Vol] 15.6 10*3/uL High 4.0-11.0 [facility] Comment on above: Performed By: #### C BCA, CMP, , 75640-8 #### [facility] ([id number]) [address] [place] [address] COMPREHENSIVE METABOLIC PANE Keenan 08-23-2023 Albumin [Mass/Vol] 1.9 g/dL Low 3.2-5.3 [facility] Comment on above: Performed By: #### C BCA, CMP, , 63933-4 #### [facility] ([id number]) [address] [place] [address] ALP [Catalytic activity/Vol] 41 U/L Normal 39-130 [facility] Comment on above: Performed By: #### C BCA, CMP, , 84488-7 #### [facility] ([id number]) [address] [place] [address] ALT [Catalytic activity/Vol] 30 U/L Normal 0-31 [facility] Comment on above: Performed By: #### C BCA, CMP, 72213-4, 57556-0 #### [facility] ([id number]) [address] [place] [address] Anion gap [Moles/Vol] 6 mmol/L Normal 5-15 [facility] Comment on above: Performed By: #### C BCA, CMP, , 25240-4 #### [facility] ([id number]) [address] [place] [address] AST [Catalytic activity/Vol] 44 U/L High 0-41 [facility] Comment on above: Performed By: #### C BCA, CMP, , 22958-5 #### [facility] ([id number]) [address] [place] [address] Bilirubin [Mass/Vol] 0.6 mg/dL Normal 0.3-1.2 [facility] Comment on above: Performed By: #### C BCA, CMP, , 72775-6 #### [facility] ([id number]) [address] [place] [address] Calcium [Mass/Vol] 8.0 mg/dL Low 8.5-10.5 [facility] Comment on above: Performed By: #### C BCA, CMP, , 54599-1 #### [facility] ([id number]) [address] [place] [address] Chloride [Moles/Vol] 101 mmol/L Normal 98-109 [facility] Comment on above: Performed By: #### C BCA, CMP, , 58650-4 #### [facility] ([id number]) [address] [place] [address] CO2 [Moles/Vol] 26 mmol/L Normal 22-32 [facility] Comment on above: Performed By: #### C BCA, CMP, , 03267-8 #### [facility] ([id number]) [address] [place] [address] Creatinine [Mass/Vol] 1.28 mg/dL High 0.40-1.00 [facility] Comment on above: Result Comment: METH OD TRACEABLE TO IDMS STANDARD Performed By: #### C BCA, CMP, , 75651-7 #### [facility] ([id number]) [address] [place] [address] GFR/1.73 sq M.predicted among non-blacks MDRD (S/P/Bld) [Vol rate/Area] 44 mL/min/{1.73_m2} Low >59 [facility] Comment on above: Result Comment: Reported eGFR is based on the CKD-EPI 2020 equation that does not use a race coefficient. Performed By: #### C BCA, CMP, , 72486-9 #### [facility] ([id number]) [address] [place] [address] Glucose [Mass/Vol] 91 mg/dL Normal 65-99 [facility] Comment on above: Performed By: #### C BCA, CMP, , 11582-3 #### [facility] ([id number]) [address] [place] [address] Potassium [Moles/Vol] 4.2 mmol/L Normal 3.5-5.0 [facility] Comment on above: Performed By: #### C BCA, CMP, , 66395-3 #### [facility] ([id number]) [address] [place] [address] Protein [Mass/Vol] 5.7 g/dL Low 6.0-8.0 [facility] Comment on above: Performed By: #### C BCA, CMP, , 04646-4 #### [facility] ([id number]) [address] [place] [address] Sodium [Moles/Vol] 133 mmol/L Low 134-146 [facility] Comment on above: Performed By: #### C BCA, CMP, , 46469-3 #### [facility] ([id number]) [address] [place] [address] Urea nitrogen [Mass/Vol] 21 mg/dL Normal 5-27 [facility] Comment on above: Performed By: #### C BCA, CMP, , 24261-7 #### [facility] ([id number]) [address] [place] [address] MAGNESIUMon 08-23-2023 Magnesium [Mass/Vol] 1.8 mg/dL Normal 1.8-2.6 [facility] Comment on above: Performed By: #### C BCA, CMP, 99720-2, 32607-4 #### [facility] ([id number]) [address] [place] [address] CBC AND AUTO DIFFon 08-22-19 24 Band form neutrophils/100 WBC (Bld) 4.8 % Normal [facility] Comment on above: Performed By: #### C MP, THYR, 2284-03, 2132-04, 70655-3 #### [facility] ([id number]) [address], [address] [place] [address] Eosinophils (Bld) [#/Vol] 0.2 10*3/uL Normal 0.0-0.4 [facility] Comment on above: Performed By: #### C MP, THYR, 2284-03, 2132-04, 29721-4 #### [facility] ([id number]) [address] [place] [address] Eosinophils/100 WBC (Bld) 1.0 % Normal [facility] Comment on above: Performed By: #### C MP, THYR, 2284-03, 2132-04, 75029-5 #### [facility] ([id number]) [address], [address] [place] [address] Erythrocyte distribution width (RBC) [Ratio] 14.1 % Normal 11.5-15.0 [facility] Comment on above: Performed By: #### C MP, THYR, 2284-03, 2132-04, 29213-5 #### [facility] ([id number]) [address], [address] [place] [address] Hematocrit (Bld) [Volume fraction] 31.0 % Low 35-47 [facility] Comment on above: Performed By: #### C MP, THYR, 2284-03, 2132-04, 26124-8 #### [facility] ([id number]) [address], [address] [place] [address] Hemoglobin (Bld) [Mass/Vol] 10.4 g/dL Low 11.7-15.5 [facility] Comment on above: Performed By: #### C MP, THYR, 2284-03, 2132-04, 59784-4 #### [facility] ([id number]) [address], [address] [place] [address] LYMPHOCYTE, ATYPICAL 1.9 % Normal [facility] Comment on above: Performed By: #### C MP, THYR, 2284-03, 2132-04, 81994-7 #### [facility] ([id number]) [address], [address] [place] [address] Lymphocytes (Bld) [#/Vol] 0.9 10*3/uL Low 1.0-3.5 [facility] Comment on above: Performed By: #### C MP, THYR, 2284-03, 2132-04, 51027-9 #### [facility] ([id number]) [address], [address] [place] [address] Lymphocytes/100 WBC (Bld) 3.8 % Normal [facility] Comment on above: Performed By: #### C MP, THYR, 2284-03, 2132-04, 05221-3 #### [facility] ([id number]) [address], [address] [place] [address] MCH (RBC) [Entitic mass] 32.3 pg Normal 27-34 [facility] Comment on above: Performed By: #### C MP, THYR, 2284-03, 2132-04, 57004-5 #### [facility] ([id number]) [address], [address] [place] [address] MCHC (RBC) [Mass/Vol] 33.6 g/dL Normal 32-36 [facility] Comment on above: Performed By: #### C MP, THYR, 2284-03, 2132-04, 81463-9 #### [facility] ([id number]) [address], [facility] [address] [place] [address] MCV (RBC) [Entitic vol] 96 fL Normal 80-100 [facility] Comment on above: Performed By: #### C MP, THYR, 2284-03, 2132-04, 66512-2 #### [facility] ([id number]) [address] [address] [place] [address] Monocytes (Bld) [#/Vol] 5.1 10*3/uL High 0-0.9 [facility] Comment on above: Performed By: #### C MP, THYR, 2284-03, 2132-04, 70071-1 #### [facility] ([id number]) [address] [address] [place] [address] Monocytes/100 WBC (Bld) 32.4 % Normal [facility] Comment on above: Performed By: #### C MP, THYR, 2284-03, 2132-04, 51437-9 #### [facility] ([id number]) [address], [facility] [address] [place] [address] MYELOCYTE 1.0 % Normal [facility] Comment on above: Performed By: #### C MP, THYR, 2284-03, 2132-04, 56896-8 #### [facility] ([id number]) [address], [facility] [address] [place] [address] Neutrophils (Bld) [#/Vol] 9.3 10*3/uL High 1.5-6.6 [facility] Comment on above: Performed By: #### C MP, THYR, 2284-03, 2132-04, 30549-1 #### [facility] ([id number]) [address], [address] [place] [address] Platelet mean volume (Bld) [Entitic vol] 7.9 fL Normal 7-12 [facility] Comment on above: Performed By: #### C MP, THYR, 2284-03, 2132-04, 04141-2 #### [facility] ([id number]) [address], [address] [place] [address] Platelets (Bld) [#/Vol] 195 10*3/uL Normal 150-450 [facility] Comment on above: Performed By: #### C MP, THYR, 2284-03, 2132-04, 34848-4 #### [facility] ([id number]) [address], [facility] [address] [place] [address] RBC COUNT 3.22 X10E12/L Low 3.80-5.20 [facility] Comment on above: Performed By: #### C MP, THYR, 2284-03, 2132-04, 40975-6 #### [facility] ([id number]) [address], [address] [place] [address] RBC morphology finding Nom (Bld) NORMAL Normal [facility] Comment on above: Performed By: #### C MP, THYR, 2284-03, 2132-04, 68268-1 #### [facility] ([id number]) [address], [address] [place] [address] SEG NEUTROPHIL 55.1 % Normal [facility] Comment on above: Performed By: #### C MP, THYR, 2284-03, 2132-04, 16524-0 #### [facility] ([id number]) [address], [address] [place] [address] TOXIC GRANULATION 2+ Abnormal NONE [facility] Comment on above: Performed By: #### C MP, THYR, 2283-8, 2132-04, 55302-1 #### [facility] ([id number]) [address], [address] [place] [address] WBC (Bld) [#/Vol] 15.6 10*3/uL High 4.0-11.0 [facility] Comment on above: Performed By: #### C MP, THYR, 8, 2132-04, 70472-7 #### [facility] ([id number]) [address], [address] [place] [address] COMPREHENSIVE METABOLIC PANE Keenan 08-22-2023 Albumin [Mass/Vol] 1.9 g/dL Low 3.2-5.3 [facility] Comment on above: Performed By: #### C MP, THYR, 2284-03, 2132-04, 46206-0 #### [facility] ([id number]) [address], [address] [place] [address] ALP [Catalytic activity/Vol] 42 U/L Normal 39-130 [facility] Comment on above: Performed By: #### C MP, THYR, 2284-03, 2132-04, 59333-5 #### [facility] ([id number]) [address], [address] [place] [address] ALT [Catalytic activity/Vol] 18 U/L Normal 0-31 [facility] Comment on above: Performed By: #### C MP, THYR, 2283-8, 2132-04, 58295-4 #### [facility] ([id number]) [address], [address] [place] [address] Anion gap [Moles/Vol] 6 mmol/L Normal 5-15 [facility] Comment on above: Performed By: #### C MP, THYR, 2283-, 9, 08906-6 #### [facility] ([id number]) [address], [address] [place] [address] AST [Catalytic activity/Vol] 29 U/L Normal 0-41 [facility] Comment on above: Performed By: #### C MP, THYR, 2284-03, 2132-04, 33319-1 #### [facility] ([id number]) [address], [address] [place] [address] Bilirubin [Mass/Vol] 0.5 mg/dL Normal 0.3-1.2 [facility] Comment on above: Performed By: #### C BARTOLO, THYR, 2284-03, 2132-04, 67690-6 #### [facility] ([id number]) [address], [address] [place], [place] [address] Calcium [Mass/Vol] 8.2 mg/dL Low 8.5-10.5 [facility] Comment on above: Performed By: #### C MP, THYR, 2284-03, 2132-04, 27968-9 #### [facility] ([id number]) [address], [address] [place], [place] [address] Chloride [Moles/Vol] 101 mmol/L Normal 98-109 [facility] Comment on above: Performed By: #### C MP, THYR, 2284-03, 2132-04, 11658-1 #### [facility] ([id number]) [address], [address] [place] [address] CO2 [Moles/Vol] 27 mmol/L Normal 22-32 [facility] Comment on above: Performed By: #### C MP, THYR, 2284-03, 2132-04, 38664-9 #### [facility] ([id number]) [address], [address] [address] [place] [address] Creatinine [Mass/Vol] 1.25 mg/dL High 0.40-1.00 [facility] Comment on above: Result Comment: METH OD TRACEABLE TO IDMS STANDARD Performed By: #### C MP, THYR, 2284-03, 2132-04, 38889-6 #### [facility] ([id number]) [address], [address] [place] [address] GFR/1.73 sq M.predicted among non-blacks MDRD (S/P/Bld) [Vol rate/Area] 46 mL/min/{1.73_m2} Low >59 [facility] Comment on above: Result Comment: Reported eGFR is based on the CKD-EPI 2020 equation that does not use a race coefficient. Performed By: #### C BARTOLO, THYR, 2284-03, 2132-04, 48108-1 #### [facility] ([id number]) [address], [address] [place] [address] Glucose [Mass/Vol] 106 mg/dL High 65-99 [facility] Comment on above: Performed By: #### C MP, THYR, 2284-03, 2132-04, 26370-8 #### [facility] ([id number]) [address], [address] [place] [address] Potassium [Moles/Vol] 4.1 mmol/L Normal 3.5-5.0 [facility] Comment on above: Performed By: #### C MP, THYR, 2284-03, 2132-04, 54145-4 #### [facility] ([id number]) [address], [address] [place] [address] Protein [Mass/Vol] 5.9 g/dL Low 6.0-8.0 [facility] Comment on above: Performed By: #### C MP, THYR, 2284-03, 2132-04, 94527-5 #### [facility] ([id number]) [address], [address] [place] [address] Sodium [Moles/Vol] 134 mmol/L Normal 134-146 [facility] Comment on above: Performed By: #### C MP, THYR, 2283-8, 9, 66820-5 #### [facility] ([id number]) [address], [facility] [address] [place] [address] Urea nitrogen [Mass/Vol] 21 mg/dL Normal 5-27 [facility] Comment on above: Performed By: #### C MP, THYR, 8, 2132-04, 36808-6 #### [facility] ([id number]) [address], [facility] [address] [place] [address] MAGNESIUMon 08-22-2023 Magnesium [Mass/Vol] 1.8 mg/dL Normal 1.8-2.6 [facility] Comment on above: Performed By: #### C MP, THYR, 2284-03, 2132-04, 70414-0 #### [facility] ([id number]) [address], [address] [place] [address] CBC AND AUTO DIFFon 08-21-19 24 Band form neutrophils/100 WBC (Bld) 4.7 % Normal [facility] Comment on above: Performed By: #### C MP, THYR, 2284-03, 2132-04, 51580-3 #### [facility] ([id number]) [address], [facility] [address] [place] [address] Erythrocyte distribution width (RBC) [Ratio] 14.1 % Normal 11.5-15.0 [facility] Comment on above: Performed By: #### C MP, THYR, 8, 2132-04, 61603-5 #### [facility] ([id number]) [address] [address] [place] [address] Hematocrit (Bld) [Volume fraction] 30.5 % Low 35-47 [facility] Comment on above: Performed By: #### C MP, THYR, 2284-03, 2132-04, 78264-4 #### [facility] ([id number]) [address], [address] [place] [address] Hemoglobin (Bld) [Mass/Vol] 10.2 g/dL Low 11.7-15.5 [facility] Comment on above: Performed By: #### C MP, THYR, 2284-03, 2132-04, 37144-9 #### [facility] ([id number]) [address], [address] [place] [address] LYMPHOCYTE, ATYPICAL 1.9 % Normal [facility] Comment on above: Performed By: #### C MP, THYR, 2284-03, 2132-04, 20785-0 #### [facility] ([id number]) [address], [address] [place] [address] Lymphocytes (Bld) [#/Vol] 1.2 10*3/uL Normal 1.0-3.5 [facility] Comment on above: Performed By: #### C MP, THYR, 2284-03, 2132-04, 74239-0 #### [facility] ([id number]) [address], [address] [place] [address] Lymphocytes/100 WBC (Bld) 6.6 % Normal [facility] Comment on above: Performed By: #### C MP, THYR, 2284-03, 2132-04, 86037-4 #### [facility] ([id number]) [address], [address] [place] [address] MCH (RBC) [Entitic mass] 32.5 pg Normal 27-34 [facility] Comment on above: Performed By: #### C MP, THYR, 2284-03, 2132-04, 82522-6 #### [facility] ([id number]) [address], [address] [place] [address] MCHC (RBC) [Mass/Vol] 33.6 g/dL Normal 32-36 [facility] Comment on above: Performed By: #### C MP, THYR, 2284-03, 2132-04, 45520-6 #### [facility] ([id number]) [address], [address] [place] [address] MCV (RBC) [Entitic vol] 97 fL Normal 80-100 [facility] Comment on above: Performed By: #### C MP, THYR, 2284-03, 2132-04, 21652-7 #### [facility] ([id number]) [address] [address] [place] [address] Metamyelocytes/100 WBC (Bld) 0.9 % Normal [facility] Comment on above: Performed By: #### C MP, THYR, 2284-03, 2132-04, 04333-7 #### [facility] ([id number]) [address], [facility] [address] [place] [address] Monocytes (Bld) [#/Vol] 3.0 10*3/uL High 0-0.9 [facility] Comment on above: Performed By: #### C MP, THYR, 2284-03, 2132-04, 16602-1 #### [facility] ([id number]) [address] [address] [place] [address] Monocytes/100 WBC (Bld) 21.7 % Normal [facility] Comment on above: Performed By: #### C MP, THYR, 2284-03, 2132-04, 85714-6 #### [facility] ([id number]) [address] [address] [place] [address] MYELOCYTE 0.9 % Normal [facility] Comment on above: Performed By: #### C MP, THYR, 2284-03, 2132-04, 26335-6 #### [facility] ([id number]) [address], [address] [place] [address] Neutrophils (Bld) [#/Vol] 9.5 10*3/uL High 1.5-6.6 [facility] Comment on above: Performed By: #### C MP, THYR, 2284-03, 2132-04, 86042-2 #### [facility] ([id number]) [address], [facility] [address] [place] [address] Platelet mean volume (Bld) [Entitic vol] 7.6 fL Normal 7-12 [facility] Comment on above: Performed By: #### C MP, THYR, 2284-03, 2132-04, 71283-6 #### [facility] ([id number]) [address], [facility] [address] [place] [address] Platelets (Bld) [#/Vol] 168 10*3/uL Normal 150-450 [facility] Comment on above: Performed By: #### C MP, THYR, 2284-03, 2132-04, 75971-7 #### [facility] ([id number]) [address], [facility] [address] [place] [address] RBC COUNT 3.15 X10E12/L Low 3.80-5.20 [facility] Comment on above: Performed By: #### C MP, THYR, 2284-03, 2132-04, 02310-8 #### [facility] ([id number]) [address], [address] [place] [address] RBC morphology finding Nom (Bld) NORMAL Normal [facility] Comment on above: Performed By: #### C MP, THYR, 2284-03, 2132-04, 69254-1 #### [facility] ([id number]) [address], [address] [place] [address] SEG NEUTROPHIL 63.3 % Normal [facility] Comment on above: Performed By: #### C MP, THYR, 2284-03, 2132-04, 60746-6 #### [facility] ([id number]) [address], [address] [place] [address] TOXIC GRANULATION 2+ Abnormal NONE [facility] Comment on above: Performed By: #### C MP, THYR, 2284-03, 2132-04, 73719-5 #### [facility] ([id number]) [address], [address] [place] [address] WBC (Bld) [#/Vol] 14.0 10*3/uL High 4.0-11.0 [facility] Comment on above: Performed By: #### C MP, THYR, 2284-03, 2132-04, 11789-5 #### [facility] ([id number]) [address], [address] [place] [address] COMPREHENSIVE METABOLIC PANE Keenan 08-21-2023 Albumin [Mass/Vol] 1.8 g/dL Low 3.2-5.3 [facility] Comment on above: Performed By: #### C MP, THYR, 2284-03, 2132-04, 55791-6 #### [facility] ([id number]) [address], [address] [place] [address] ALP [Catalytic activity/Vol] 38 U/L Low 39-130 [facility] Comment on above: Performed By: #### C MP, THYR, 2284-03, 2132-04, 62430-5 #### [facility] ([id number]) [address], [address] [place] [address] ALT [Catalytic activity/Vol] 8 U/L Normal 0-31 [facility] Comment on above: Performed By: #### C MP, THYR, 2284-03, 2132-04, 92534-7 #### [facility] ([id number]) [address], [address] [place] [address] Anion gap [Moles/Vol] 5 mmol/L Normal 5-15 [facility] Comment on above: Performed By: #### C MP, THYR, 2284-03, 2132-04, 61318-5 #### [facility] ([id number]) [address], [address] [place] [address] AST [Catalytic activity/Vol] 15 U/L Normal 0-41 [facility] Comment on above: Performed By: #### C MP, THYR, 2284-03, 2132-04, 19641-4 #### [facility] ([id number]) [address], [address] [place] [address] Bilirubin [Mass/Vol] 0.4 mg/dL Normal 0.3-1.2 [facility] Comment on above: Performed By: #### C MP, THYR, 2284-03, 2132-04, 98263-6 #### [facility] ([id number]) [address], [address] [place] [address] Calcium [Mass/Vol] 8.0 mg/dL Low 8.5-10.5 [facility] Comment on above: Performed By: #### C MP, THYR, 2284-03, 2132-04, 83380-1 #### [facility] ([id number]) [address], [address] [place] [address] Chloride [Moles/Vol] 98 mmol/L Normal 98-109 [facility] Comment on above: Performed By: #### C MP, THYR, 2284-03, 2132-04, 25282-9 #### [facility] ([id number]) [address], [address] [place] [address] CO2 [Moles/Vol] 28 mmol/L Normal 22-32 [facility] Comment on above: Performed By: #### C MP, THYR, 2284-03, 2132-04, 28908-6 #### [facility] ([id number]) [address], [address] [place] [address] Creatinine [Mass/Vol] 1.32 mg/dL High 0.40-1.00 [facility] Comment on above: Result Comment: METH OD TRACEABLE TO IDMS STANDARD Performed By: #### C MP, THYR, 2284-03, 2132-04, 95990-2 #### [facility] ([id number]) [address], [address] [place] [address] GFR/1.73 sq M.predicted among non-blacks MDRD (S/P/Bld) [Vol rate/Area] 43 mL/min/{1.73_m2} Low >59 [facility] Comment on above: Result Comment: Reported eGFR is based on the CKD-EPI 2020 equation that does not use a race coefficient. Performed By: #### C MP, THYR, 2284-03, 2132-04, 21873-1 #### [facility] ([id number]) [address], [address] [place] [address] Glucose [Mass/Vol] 100 mg/dL High 65-99 [facility] Comment on above: Performed By: #### C MP, THYR, 2284-03, 2132-04, 42792-6 #### [facility] ([id number]) [address], [address] [place] [address] Potassium [Moles/Vol] 4.1 mmol/L Normal 3.5-5.0 [facility] Comment on above: Performed By: #### C MP, THYR, 2284-03, 2132-04, 99263-7 #### [facility] ([id number]) [address], [address] [place] [address] Protein [Mass/Vol] 5.7 g/dL Low 6.0-8.0 [facility] Comment on above: Performed By: #### C MP, THYR, 2284-03, 2132-04, 15982-9 #### [facility] ([id number]) [address], [address] [place] [address] Sodium [Moles/Vol] 131 mmol/L Low 134-146 [facility] Comment on above: Performed By: #### C MP, THYR, 2283-8, 9, 23096-1 #### [facility] ([id number]) [address], [address] [place] [address] Urea nitrogen [Mass/Vol] 20 mg/dL Normal 5-27 [facility] Comment on above: Performed By: #### C MP, THYR, 2283-, 9, 22551-1 #### [facility] ([id number]) [address], [address] [place] [address] MAGNESIUMon 08-21-2023 Magnesium [Mass/Vol] 2.0 mg/dL Normal 1.8-2.6 [facility] Comment on above: Performed By: #### C MP, THYR, 8, 9, 48946-2 #### [facility] ([id number]) [address], [address] [place] [address] BREWSTER GENERIC ORDERon TEST NAME VALPF VALPROIC ACID FREE SERUM Normal [facility] Comment on above: Performed By: #### C BCA, CMP, 54781-7, 08316-2 #### [facility] ([id number]) [address] [place] [address] TEST RESULT SEE COMMENTS 024 10:28 PM Normal [facility] Comment on above: Result Comment: NOTE Test Result Flag Unit RefValue Valproic Acid, Free, S 5 mcg/mL 5 - 25 Test Performed by: [place] [address] [employer] Mechanic: Hira Cantu M.D. Ph.D.; CLIA# [id number] Performed By: #### C BCA, CMP, 23671-6, 71334-5 #### [facility] ([id number]) [address] [place] [address] CBC AND AUTO DIFFon 08-20-19 24 Eosinophils (Bld) [#/Vol] 0.2 10*3/uL Normal 0.0-0.4 [facility] Comment on above: Performed By: #### C MP, THYR, 2284-03, 2132-04, 57221-4 #### [facility] ([id number]) [address], [address] [place] [address] Eosinophils/100 WBC (Bld) 1.9 % Normal [facility] Comment on above: Performed By: #### C MP, THYR, 2284-03, 2132-04, 89203-2 #### [facility] ([id number]) [address] [address] [place] [address] Erythrocyte distribution width (RBC) [Ratio] 14.0 % Normal 11.5-15.0 [facility] Comment on above: Performed By: #### C MP, THYR, 2284-03, 2132-04, 18646-3 #### [facility] ([id number]) [address] [address] [place] [address] Hematocrit (Bld) [Volume fraction] 32.5 % Low 35-47 [facility] Comment on above: Performed By: #### C MP, THYR, 2284-03, 2132-04, 72848-5 #### [facility] ([id number]) [address] [address] [place] [address] Hemoglobin (Bld) [Mass/Vol] 10.6 g/dL Low 11.7-15.5 [facility] Comment on above: Performed By: #### C MP, THYR, 2284-03, 2132-04, 24259-5 #### [facility] ([id number]) [address], [address] [place] [address] LYMPHOCYTE, ATYPICAL 5.6 % Normal [facility] Comment on above: Performed By: #### C MP, THYR, 2284-03, 2132-04, 40352-0 #### [facility] ([id number]) [address], [address] [place] [address] Lymphocytes (Bld) [#/Vol] 0.9 10*3/uL Low 1.0-3.5 [facility] Comment on above: Performed By: #### C MP, THYR, 2284-03, 2132-04, 76014-9 #### [facility] ([id number]) [address], [address] [place] [address] Lymphocytes/100 WBC (Bld) 1.9 % Normal [facility] Comment on above: Performed By: #### C MP, THYR, 2284-03, 2132-04, 35002-1 #### [facility] ([id number]) [address], [address] [place] [address] MCH (RBC) [Entitic mass] 31.9 pg Normal 27-34 [facility] Comment on above: Performed By: #### C MP, THYR, 2284-03, 2132-04, 62532-1 #### [facility] ([id number]) [address], [address] [place] [address] MCHC (RBC) [Mass/Vol] 32.6 g/dL Normal 32-36 [facility] Comment on above: Performed By: #### C MP, THYR, 2284-03, 2132-04, 24582-2 #### [facility] ([id number]) [address], [address] [place] [address] MCV (RBC) [Entitic vol] 98 fL Normal 80-100 [facility] Comment on above: Performed By: #### C MP, THYR, 2284-03, 2132-04, 23795-0 #### [facility] ([id number]) [address], [address] [place] [address] Monocytes (Bld) [#/Vol] 3.5 10*3/uL High 0-0.9 [facility] Comment on above: Performed By: #### C MP, THYR, 2284-03, 2132-04, 31095-0 #### [facility] ([id number]) [address], [address] [place] [address] Monocytes/100 WBC (Bld) 29.0 % Normal [facility] Comment on above: Performed By: #### C MP, THYR, 2284-03, 2132-04, 01045-1 #### [facility] ([id number]) [address], [address] [place] [address] MYELOCYTE 1.9 % Normal [facility] Comment on above: Performed By: #### C MP, THYR, 2284-03, 2132-04, 53969-1 #### [facility] ([id number]) [address], [address] [place] [address] Neutrophils (Bld) [#/Vol] 7.2 10*3/uL High 1.5-6.6 [facility] Comment on above: Performed By: #### C MP, THYR, 2284-03, 2132-04, 26056-4 #### [facility] ([id number]) [address], [address] [place] [address] NUCLEATED RBC 0.9 /100 WBC Normal 0.0-1.0 [facility] Comment on above: Performed By: #### C MP, THYR, 2284-03, 2132-04, 61743-1 #### [facility] ([id number]) [address] [address] [place] [address] Platelet mean volume (Bld) [Entitic vol] 7.8 fL Normal 7-12 [facility] Comment on above: Performed By: #### C MP, THYR, 2284-03, 2132-04, 90179-2 #### [facility] ([id number]) [address], [facility] [address] [place] [address] Platelets (Bld) [#/Vol] 178 10*3/uL Normal 150-450 [facility] Comment on above: Performed By: #### C MP, THYR, 2284-03, 2132-04, 95019-4 #### [facility] ([id number]) [address], [facility] [address] [place] [address] RBC COUNT 3.32 X10E12/L Low 3.80-5.20 [facility] Comment on above: Performed By: #### C MP, THYR, 2284-03, 2132-04, 39841-7 #### [facility] ([id number]) [address] [address] [place] [address] RBC morphology finding Nom (Bld) NORMAL Normal [facility] Comment on above: Performed By: #### C MP, THYR, 2284-03, 2132-04, 65569-6 #### [facility] ([id number]) [address], [facility] [address] [place] [address] SEG NEUTROPHIL 59.7 % Normal [facility] Comment on above: Performed By: #### C MP, THYR, 2284-03, 2132-04, 31522-5 #### [facility] ([id number]) [address], [address] [place] [address] WBC (Bld) [#/Vol] 12.1 10*3/uL High 4.0-11.0 [facility] Comment on above: Performed By: #### C MP, THYR, 2283-8, 2132-04, 53790-0 #### [facility] ([id number]) [address], [address] [place] [address] COMPREHENSIVE METABOLIC PANE Keenan 08-20-2023 Albumin [Mass/Vol] 1.9 g/dL Low 3.2-5.3 [facility] Comment on above: Performed By: #### C MP, THYR, 2283-8, 2132-04, 05337-6 #### [facility] ([id number]) [address], [address] [place] [address] ALP [Catalytic activity/Vol] 43 U/L Normal 39-130 [facility] Comment on above: Performed By: #### C MP, THYR, 2284-03, 2132-04, 76008-4 #### [facility] ([id number]) [address], [address] [place] [address] ALT [Catalytic activity/Vol] 9 U/L Normal 0-31 [facility] Comment on above: Performed By: #### C MP, THYR, 2284-03, 2132-04, 54021-8 #### [facility] ([id number]) [address], [address] [place] [address] Anion gap [Moles/Vol] 7 mmol/L Normal 5-15 [facility] Comment on above: Performed By: #### C MP, THYR, 2283-8, 9, 21847-1 #### [facility] ([id number]) [address], [address] [place] [address] AST [Catalytic activity/Vol] 13 U/L Normal 0-41 [facility] Comment on above: Performed By: #### C MP, THYR, 2283-8, 2132-04, 88229-3 #### [facility] ([id number]) [address], [address] [place], [place] [address] Bilirubin [Mass/Vol] 0.5 mg/dL Normal 0.3-1.2 [facility] Comment on above: Performed By: #### C MP, THYR, 2284-03, 2132-04, 13253-5 #### [facility] ([id number]) [address], [address] [place] [address] Calcium [Mass/Vol] 8.0 mg/dL Low 8.5-10.5 [facility] Comment on above: Performed By: #### C MP, THYR, 2284-03, 2132-04, 66211-2 #### [facility] ([id number]) [address], [address] [place], [place] [address] Chloride [Moles/Vol] 103 mmol/L Normal 98-109 [facility] Comment on above: Performed By: #### C MP, THYR, 2284-03, 2132-04, 70526-5 #### [facility] ([id number]) [address], [address] [place] [address] CO2 [Moles/Vol] 25 mmol/L Normal 22-32 [facility] Comment on above: Performed By: #### C MP, THYR, 2284-03, 2132-04, 39099-1 #### [facility] ([id number]) [address], [address] [place], [place] [address] Creatinine [Mass/Vol] 1.27 mg/dL High 0.40-1.00 [facility] Comment on above: Result Comment: METH OD TRACEABLE TO IDMS STANDARD Performed By: #### C MP, THYR, 2284-03, 2132-04, 87180-3 #### [facility] ([id number]) [address], [address] [place] [address] GFR/1.73 sq M.predicted among non-blacks MDRD (S/P/Bld) [Vol rate/Area] 45 mL/min/{1.73_m2} Low >59 [facility] Comment on above: Result Comment: Reported eGFR is based on the CKD-EPI 2020 equation that does not use a race coefficient. Performed By: #### C BARTOLO, THYR, 2284-03, 2132-04, 68631-6 #### [facility] ([id number]) [address], [address] [place] [address] Glucose [Mass/Vol] 82 mg/dL Normal 65-99 [facility] Comment on above: Performed By: #### C BARTOLO, THYR, 2284-03, 2132-04, 72164-1 #### [facility] ([id number]) [address], [address] [place] [address] Potassium [Moles/Vol] 4.2 mmol/L Normal 3.5-5.0 [facility] Comment on above: Performed By: #### C BARTOLO, THYR, 2284-03, 2132-04, 66656-0 #### [facility] ([id number]) [address] [address] [place] [address] Protein [Mass/Vol] 5.8 g/dL Low 6.0-8.0 [facility] Comment on above: Performed By: #### C MP, THYR, 2284-03, 2132-04, 78296-3 #### [facility] ([id number]) [address], [address] [place] [address] Sodium [Moles/Vol] 135 mmol/L Normal 134-146 [facility] Comment on above: Performed By: #### C MP, THYR, 2284-03, 2132-04, 98504-9 #### [facility] ([id number]) [address], [address] [place] [address] Urea nitrogen [Mass/Vol] 20 mg/dL Normal 5-27 [facility] Comment on above: Performed By: #### C MP, THYR, 2284-03, 2132-04, 40159-6 #### [facility] ([id number]) [address], [address] [place] [address] MAGNESIUMon 08-20-2023 Magnesium [Mass/Vol] 2.1 mg/dL Normal 1.8-2.6 [facility] Comment on above: Performed By: #### C MP, THYR, 2284-03, 2132-04, 55167-5 #### [facility] ([id number]) [address] [address] [place] [address] CBC AND AUTO DIFFon 08-19-19 Erythrocyte distribution width (RBC) [Ratio] 14.5 % Normal 11.5-15.0 [facility] Comment on above: Performed By: #### C MP, THYR, 2284-03, 2132-04, 32471-4 #### [facility] ([id number]) [address] [address] [place] [address] Hematocrit (Bld) [Volume fraction] 31.2 % Low 35-47 [facility] Comment on above: Performed By: #### C MP, THYR, 2284-03, 2132-04, 22777-4 #### [facility] ([id number]) [address] [address] [place] [address] Hemoglobin (Bld) [Mass/Vol] 10.3 g/dL Low 11.7-15.5 [facility] Comment on above: Performed By: #### C MP, THYR, 2284-03, 2132-04, 99170-6 #### [facility] ([id number]) [address] [address] [place] [address] Lymphocytes (Bld) [#/Vol] 1.4 10*3/uL Normal 1.0-3.5 [facility] Comment on above: Performed By: #### C MP, THYR, 2284-03, 2132-04, 00069-0 #### [facility] ([id number]) [address], [address] [place] [address] Lymphocytes/100 WBC (Bld) 11.2 % Normal [facility] Comment on above: Performed By: #### C MP, THYR, 2284-03, 2132-04, 67072-9 #### [facility] ([id number]) [address], [facility] [address] [place] [address] MCH (RBC) [Entitic mass] 32.1 pg Normal 27-34 [facility] Comment on above: Performed By: #### C MP, THYR, 2284-03, 2132-04, 95092-9 #### [facility] ([id number]) [address], [address] [place] [address] MCHC (RBC) [Mass/Vol] 33.0 g/dL Normal 32-36 [facility] Comment on above: Performed By: #### C MP, THYR, 2284-03, 2132-04, 69666-4 #### [facility] ([id number]) [address], [address] [place] [address] MCV (RBC) [Entitic vol] 97 fL Normal 80-100 [facility] Comment on above: Performed By: #### C MP, THYR, 2284-03, 2132-04, 26433-7 #### [facility] ([id number]) [address], [address] [place] [address] Metamyelocytes/100 WBC (Bld) 0.9 % Normal [facility] Comment on above: Performed By: #### C MP, THYR, 2284-03, 2132-04, 92555-8 #### [facility] ([id number]) [address], [address] [place] [address] Monocytes (Bld) [#/Vol] 4.6 10*3/uL High 0-0.9 [facility] Comment on above: Performed By: #### C MP, THYR, 2283-8, 2132-04, 95567-0 #### [facility] ([id number]) [address], [address] [place] [address] Monocytes/100 WBC (Bld) 37.4 % Normal [facility] Comment on above: Performed By: #### C MP, THYR, 2284-03, 2132-04, 07004-3 #### [facility] ([id number]) [address], [address] [place] [address] MYELOCYTE 1.9 % Normal [facility] Comment on above: Performed By: #### C MP, THYR, 2284-03, 2132-04, 89748-1 #### [facility] ([id number]) [address], [address] [place] [address] Neutrophils (Bld) [#/Vol] 6.0 10*3/uL Normal 1.5-6.6 [facility] Comment on above: Performed By: #### C MP, THYR, 2284-03, 9, 14522-1 #### [facility] ([id number]) [address], [address] [place] [address] Platelet mean volume (Bld) [Entitic vol] 7.7 fL Normal 7-12 [facility] Comment on above: Performed By: #### C MP, THYR, 2284-03, 2132-04, 68662-6 #### [facility] ([id number]) [address], [address] [place] [address] Platelets (Bld) [#/Vol] 169 10*3/uL Normal 150-450 [facility] Comment on above: Performed By: #### C MP, THYR, 2284-03, 2132-04, 14661-2 #### [facility] ([id number]) [address], [address] [place] [address] RBC COUNT 3.21 X10E12/L Low 3.80-5.20 [facility] Comment on above: Performed By: #### C MP, THYR, 2284-03, 2132-04, 11686-1 #### [facility] ([id number]) [address], [address] [place] [address] RBC morphology finding Nom (Bld) NORMAL Normal [facility] Comment on above: Performed By: #### C MP, THYR, 2284-03, 2132-04, 73507-8 #### [facility] ([id number]) [address], [facility] [address] [place] [address] SEG NEUTROPHIL 48.6 % Normal [facility] Comment on above: Performed By: #### C MP, THYR, 2284-03, 2132-04, 65572-7 #### [facility] ([id number]) [address], [facility] [address] [place] [address] WBC (Bld) [#/Vol] 12.3 10*3/uL High 4.0-11.0 [facility] Comment on above: Performed By: #### C MP, THYR, 2284-03, 2132-04, 08044-2 #### [facility] ([id number]) [address], [address] [place] [address] COMPREHENSIVE METABOLIC PANE Keenan 08-19-2023 Albumin [Mass/Vol] 1.9 g/dL Low 3.2-5.3 [facility] Comment on above: Performed By: #### C MP, THYR, 2284-03, 9, 93900-4 #### [facility] ([id number]) [address], [address] [place] [address] ALP [Catalytic activity/Vol] 38 U/L Low 39-130 [facility] Comment on above: Performed By: #### C MP, THYR, 2284-03, 2132-04, 80989-3 #### [facility] ([id number]) [address], [address] [place] [address] ALT [Catalytic activity/Vol] 8 U/L Normal 0-31 [facility] Comment on above: Performed By: #### C MP, THYR, 2284-03, 2132-04, 19718-1 #### [facility] ([id number]) [address], [address] [place] [address] Anion gap [Moles/Vol] 6 mmol/L Normal 5-15 [facility] Comment on above: Performed By: #### C MP, THYR, 2284-03, 2132-04, 09377-6 #### [facility] ([id number]) [address], [address] [place] [address] AST [Catalytic activity/Vol] 12 U/L Normal 0-41 [facility] Comment on above: Performed By: #### C MP, THYR, 2284-03, 2132-04, 18617-9 #### [facility] ([id number]) [address], [address] [place] [address] Bilirubin [Mass/Vol] 0.4 mg/dL Normal 0.3-1.2 [facility] Comment on above: Performed By: #### C MP, THYR, 2284-03, 2132-04, 87010-6 #### [facility] ([id number]) [address], [address] [place] [address] Calcium [Mass/Vol] 7.8 mg/dL Low 8.5-10.5 [facility] Comment on above: Performed By: #### C MP, THYR, 2284-03, 2132-04, 31790-0 #### [facility] ([id number]) [address], [address] [place] [address] Chloride [Moles/Vol] 103 mmol/L Normal 98-109 [facility] Comment on above: Performed By: #### C MP, THYR, 2284-03, 2132-04, 03486-2 #### [facility] ([id number]) [address], [address] [place] [address] CO2 [Moles/Vol] 25 mmol/L Normal 22-32 [facility] Comment on above: Performed By: #### C MP, THYR, 2284-03, 2132-04, 47250-5 #### [facility] ([id number]) [address], [address] [place] [address] Creatinine [Mass/Vol] 1.40 mg/dL High 0.40-1.00 [facility] Comment on above: Result Comment: METH OD TRACEABLE TO IDMS STANDARD Performed By: #### C BARTOLO, THYR, 2284-03, 2132-04, 96912-5 #### [facility] ([id number]) [address] [place] [address] GFR/1.73 sq M.predicted among non-blacks MDRD (S/P/Bld) [Vol rate/Area] 40 mL/min/{1.73_m2} Low >59 [facility] Comment on above: Result Comment: Reported eGFR is based on the CKD-EPI 2020 equation that does not use a race coefficient. Performed By: #### C MP, THYR, 2284-03, 2132-04, 26405-4 #### [facility] ([id number]) [address], [address] [place] [address] Glucose [Mass/Vol] 93 mg/dL Normal 65-99 [facility] Comment on above: Performed By: #### C MP, THYR, 2284-03, 2132-04, 74352-7 #### [facility] ([id number]) [address], [address] [place] [address] Potassium [Moles/Vol] 4.1 mmol/L Normal 3.5-5.0 [facility] Comment on above: Performed By: #### C MP, THYR, 2284-03, 2132-04, 25043-8 #### [facility] ([id number]) [address], [address] [place] [address] Protein [Mass/Vol] 5.7 g/dL Low 6.0-8.0 [facility] Comment on above: Performed By: #### C MP, THYR, 2284-03, 2132-04, 83128-7 #### [facility] ([id number]) [address], [address] [place] [address] Sodium [Moles/Vol] 134 mmol/L Normal 134-146 [facility] Comment on above: Performed By: #### C MP, THYR, 2284-03, 2132-04, 98502-8 #### [facility] ([id number]) [address] [place] [address] Urea nitrogen [Mass/Vol] 20 mg/dL Normal 5-27 [facility] Comment on above: Performed By: #### C MP, THYR, 2284-03, 2132-04, 67650-8 #### [facility] ([id number]) [address], [address] [place] [address] MAGNESIUMon 08-19-2023 Magnesium [Mass/Vol] 2.4 mg/dL Normal 1.8-2.6 [facility] Comment on above: Performed By: #### C MP, THYR, 2284-03, 2132-04, 63710-9 #### [facility] ([id number]) [address], [address] [place] [address] Magnesium [Mass/Vol] 1.9 mg/dL Normal 1.8-2.6 [facility] Comment on above: Performed By: #### C BARTOLO THYR, 2284-03, 2132-04, 39290-5 #### [facility] ([id number]) [address] [place] [address] Valproate Free [Mass/Vol]on 08-19-2023 VALPROIC ACID FREE 22.9 ug/mL Normal 4.0-30.0 [facility] Comment on above: Result Comment: NOTE Reference ranges and high/low indicator flags are provided as general guidelines only. The treating physician must determine appropriate target levels/dosing based on the specific clinical situation. This test was developed and its performance characteristics determined by [facility] [place] ([facility]). It has not been cleared or approved by the FDA. [facility] is regulated under CLIA as qualified to perform high-complexity testing. This test is used for clinical purposes. It should not be regarded as investigational or for research. Test Performed By: [place] [address] Cat Scan Technologist: Casey Pineda III, M.D. CLIA #[id number] Performed By: #### C BARTOLO THYR, 2284-03, 2132-04, 82299-7 #### [facility] ([id number]) [address] [place] [address] CBC AND AUTO DIFFon 08-18-19 24 Band form neutrophils/100 WBC (Bld) 7.6 % Normal [facility] Comment on above: Performed By: #### C BARTOLO THYR, 2284-03, 2132-04, 37776-3 #### [facility] ([id number]) [address] [place] [address] Erythrocyte distribution width (RBC) [Ratio] 14.3 % Normal 11.5-15.0 [facility] Comment on above: Performed By: #### C BARTOLO THYR, 2284-03, 2132-04, 73674-0 #### [facility] ([id number]) [address] [address] [place] [address] Hematocrit (Bld) [Volume fraction] 30.7 % Low 35-47 [facility] Comment on above: Performed By: #### C MP, THYR, 2284-03, 2132-04, 66247-3 #### [facility] ([id number]) [address], [facility] [address] [place] [address] Hemoglobin (Bld) [Mass/Vol] 10.1 g/dL Low 11.7-15.5 [facility] Comment on above: Performed By: #### C MP, THYR, 2284-03, 2132-04, 64268-8 #### [facility] ([id number]) [address] [address] [place] [address] Lymphocytes (Bld) [#/Vol] 1.0 10*3/uL Normal 1.0-3.5 [facility] Comment on above: Performed By: #### C MP, THYR, 2284-03, 2132-04, 77880-5 #### [facility] ([id number]) [address] [address] [place] [address] Lymphocytes/100 WBC (Bld) 8.6 % Normal [facility] Comment on above: Performed By: #### C MP, THYR, 2284-03, 2132-04, 40052-8 #### [facility] ([id number]) [address] [place] [address] MCH (RBC) [Entitic mass] 32.0 pg Normal 27-34 [facility] Comment on above: Performed By: #### C MP, THYR, 2284-03, 2132-04, 74915-2 #### [facility] ([id number]) [address] [place] [address] MCHC (RBC) [Mass/Vol] 32.9 g/dL Normal 32-36 [facility] Comment on above: Performed By: #### C MP, THYR, 2284-03, 2132-04, 64778-3 #### [facility] ([id number]) [address] [place] [address] MCV (RBC) [Entitic vol] 97 fL Normal 80-100 [facility] Comment on above: Performed By: #### C MP, THYR, 2284-03, 2132-04, 47762-7 #### [facility] ([id number]) [address] [place] [address] Metamyelocytes/100 WBC (Bld) 1.0 % Normal [facility] Comment on above: Performed By: #### C MP, THYR, 2284-03, 2132-04, 85878-9 #### [facility] ([id number]) [address] [place] [address] Monocytes (Bld) [#/Vol] 2.6 10*3/uL High 0-0.9 [facility] Comment on above: Performed By: #### C MP, THYR, 2284-03, 2132-04, 21078-1 #### [facility] ([id number]) [address] [place] [address] Monocytes/100 WBC (Bld) 22.9 % Normal [facility] Comment on above: Performed By: #### C MP, THYR, 2284-03, 2132-04, 20685-1 #### [facility] ([id number]) [address] [place] [address] MYELOCYTE 2.9 % Normal [facility] Comment on above: Performed By: #### C MP, THYR, 2284-03, 2132-04, 51139-0 #### [facility] ([id number]) [address] [place] [address] Neutrophils (Bld) [#/Vol] 7.4 10*3/uL High 1.5-6.6 [facility] Comment on above: Performed By: #### C MP, THYR, 2284-03, 2132-04, 49686-7 #### [facility] ([id number]) [address] [place] [address] Platelet mean volume (Bld) [Entitic vol] 7.8 fL Normal 7-12 [facility] Comment on above: Performed By: #### C MP, THYR, 2284-03, 2132-04, 50174-3 #### [facility] ([id number]) [address] [place] [address] Platelets (Bld) [#/Vol] 178 10*3/uL Normal 150-450 [facility] Comment on above: Performed By: #### C MP, THYR, 2284-03, 2132-04, 31932-0 #### [facility] ([id number]) [address] [address] [place] [address] RBC COUNT 3.16 X10E12/L Low 3.80-5.20 [facility] Comment on above: Performed By: #### C MP, THYR, 2284-03, 2132-04, 48059-1 #### [facility] ([id number]) [address] [address] [place] [address] RBC morphology finding Nom (Bld) NORMAL Normal [facility] Comment on above: Performed By: #### C MP, THYR, 2284-03, 2132-04, 03721-7 #### [facility] ([id number]) [address] [place] [address] SEG NEUTROPHIL 57.0 % Normal [facility] Comment on above: Performed By: #### C MP, THYR, 8, 2132-04, 79682-8 #### [facility] ([id number]) [address] [place] [address] TOXIC GRANULATION 1+ Abnormal NONE [facility] Comment on above: Performed By: #### C MP, THYR, 8, 2132-04, 57109-4 #### [facility] ([id number]) [address] [place] [address] WBC (Bld) [#/Vol] 11.4 10*3/uL High 4.0-11.0 [facility] Comment on above: Performed By: #### C MP, THYR, 2284-03, 2132-04, 38331-5 #### [facility] ([id number]) [address] [place] [address] COMPREHENSIVE METABOLIC PANE Keenan 08-18-2023 Albumin [Mass/Vol] 1.9 g/dL Low 3.2-5.3 [facility] Comment on above: Performed By: #### C MP, THYR, 2284-03, 2132-04, 32074-5 #### [facility] ([id number]) [address] [place] [address] ALP [Catalytic activity/Vol] 35 U/L Low 39-130 [facility] Comment on above: Performed By: #### C MP, THYR, 8, 9, 07342-0 #### [facility] ([id number]) [address] [place] [address] ALT [Catalytic activity/Vol] 9 U/L Normal 0-31 [facility] Comment on above: Performed By: #### C MP, THYR, 2284-03, 2132-04, 71915-0 #### [facility] ([id number]) [address] [place] [address] Anion gap [Moles/Vol] 7 mmol/L Normal 5-15 [facility] Comment on above: Performed By: #### C MP, THYR, 2284-03, 2132-04, 02759-7 #### [facility] ([id number]) [address] [place] [address] AST [Catalytic activity/Vol] 12 U/L Normal 0-41 [facility] Comment on above: Performed By: #### C MP, THYR, 2284-03, 2132-04, 60137-9 #### [facility] ([id number]) [address] [place] [address] Bilirubin [Mass/Vol] 0.4 mg/dL Normal 0.3-1.2 [facility] Comment on above: Performed By: #### C MP, THYR, 2284-03, 2132-04, 00605-9 #### [facility] ([id number]) [address] [place] [address] Calcium [Mass/Vol] 7.8 mg/dL Low 8.5-10.5 [facility] Comment on above: Performed By: #### C MP, THYR, 2284-03, 2132-04, 61464-9 #### [facility] ([id number]) [address] [place] [address] Chloride [Moles/Vol] 102 mmol/L Normal 98-109 [facility] Comment on above: Performed By: #### C MP, THYR, 2284-03, 2132-04, 89194-0 #### [facility] ([id number]) [address] [place] [address] CO2 [Moles/Vol] 24 mmol/L Normal 22-32 [facility] Comment on above: Performed By: #### C MP, THYR, 2284-03, 2132-04, 01174-8 #### [facility] ([id number]) [address] [place] [address] Creatinine [Mass/Vol] 1.48 mg/dL High 0.40-1.00 [facility] Comment on above: Result Comment: METH OD TRACEABLE TO IDMS STANDARD Performed By: #### C MP, THYR, 2284-03, 2132-04, 63244-7 #### [facility] ([id number]) [address] [place] [address] GFR/1.73 sq M.predicted among non-blacks MDRD (S/P/Bld) [Vol rate/Area] 37 mL/min/{1.73_m2} Low >59 [facility] Comment on above: Result Comment: Reported eGFR is based on the CKD-EPI 2020 equation that does not use a race coefficient. Performed By: #### C MP, THYR, 2284-03, 2132-04, 98316-2 #### [facility] ([id number]) [address] [place] [address] Glucose [Mass/Vol] 92 mg/dL Normal 65-99 [facility] Comment on above: Performed By: #### C BARTOLO, THYR, 2284-03, 2132-04, 76421-1 #### [facility] ([id number]) [address], [address] [place] [address] Potassium [Moles/Vol] 3.8 mmol/L Normal 3.5-5.0 [facility] Comment on above: Performed By: #### C MP, THYR, 2284-03, 2132-04, 68566-2 #### [facility] ([id number]) [address], [address] [place] [address] Protein [Mass/Vol] 5.5 g/dL Low 6.0-8.0 [facility] Comment on above: Performed By: #### C MP, THYR, 8, 9, 08651-6 #### [facility] ([id number]) [address], [address] [place] [address] Sodium [Moles/Vol] 133 mmol/L Low 134-146 [facility] Comment on above: Performed By: #### C MP, THYR, 8, 9, 06507-5 #### [facility] ([id number]) [address], [address] [place] [address] Urea nitrogen [Mass/Vol] 19 mg/dL Normal 5-27 [facility] Comment on above: Performed By: #### C MP, THYR, 2284-03, 9, 32624-1 #### [facility] ([id number]) [address], [address] [place] [address] CT BRAIN WO CONT[address] BRAIN WO [...] Hernandez MD on 08/18/2023 11:00 AM Normal [facility] MAGNESIUMon 08-18-2023 Magnesium [Mass/Vol] 2.1 mg/dL Normal 1.8-2.6 [facility] Comment on above: Performed By: #### C MP, THYR, 2284-03, 2132-04, 16011-4 #### [facility] ([id number]) [address], [address] [place] [address] POTASSIUMon 08-18-2023 Potassium [Moles/Vol] 4.1 mmol/L Normal 3.5-5.0 [facility] Comment on above: Performed By: #### C MP, THYR, 2284-03, 2132-04, 78640-8 #### [facility] ([id number]) [address], [facility] [address] [place] [address] CBC AND AUTO DIFFon 08-17-19 24 Band form neutrophils/100 WBC (Bld) 2.8 % Normal [facility] Comment on above: Performed By: #### C MP, THYR, 2284-03, 2132-04, 70897-2 #### [facility] [facility] ([id number]) [address] [address] Erythrocyte distribution width (RBC) [Ratio] 14.4 % Normal 11.5-15.0 [facility] Comment on above: Performed By: #### C MP, THYR, 2284-03, 2132-04, 95817-5 #### [facility] ([id number]) [address] [address] [place] [address] Hematocrit (Bld) [Volume fraction] 31.6 % Low 35-47 [facility] Comment on above: Performed By: #### C MP, THYR, 2284-03, 2132-04, 51345-0 #### [facility] ([id number]) [address] [address] [place] [address] Hemoglobin (Bld) [Mass/Vol] 10.5 g/dL Low 11.7-15.5 [facility] Comment on above: Performed By: #### C MP, THYR, 2284-03, 2132-04, 92451-9 #### [facility] ([id number]) [address] [place] [address] Lymphocytes (Bld) [#/Vol] 1.0 10*3/uL Normal 1.0-3.5 [facility] Comment on above: Performed By: #### C MP, THYR, 2284-03, 2132-04, 65420-8 #### [facility] ([id number]) [address] [place] [address] Lymphocytes/100 WBC (Bld) 8.5 % Normal [facility] Comment on above: Performed By: #### C MP, THYR, 2284-03, 2132-04, 22509-5 #### [facility] ([id number]) [address], [address] [place] [address] MCH (RBC) [Entitic mass] 32.2 pg Normal 27-34 [facility] Comment on above: Performed By: #### C MP, THYR, 2284-03, 2132-04, 76099-4 #### [facility] ([id number]) [address], [address] [place] [address] MCHC (RBC) [Mass/Vol] 33.1 g/dL Normal 32-36 [facility] Comment on above: Performed By: #### C MP, THYR, 2284-03, 2132-04, 34724-2 #### [facility] ([id number]) [address], [address] [place] [address] MCV (RBC) [Entitic vol] 97 fL Normal 80-100 [facility] Comment on above: Performed By: #### C MP, THYR, 2284-03, 2132-04, 45359-4 #### [facility] ([id number]) [address], [address] [place] [address] Metamyelocytes/100 WBC (Bld) 1.9 % Normal [facility] Comment on above: Performed By: #### C MP, THYR, 2283-8, 9, 44565-8 #### [facility] ([id number]) [address], [address] [place] [address] Monocytes (Bld) [#/Vol] 2.8 10*3/uL High 0-0.9 [facility] Comment on above: Performed By: #### C MP, THYR, 2283-8, 2132-04, 43815-8 #### [facility] ([id number]) [address], [address] [place] [address] Monocytes/100 WBC (Bld) 23.6 % Normal [facility] Comment on above: Performed By: #### C MP, THYR, 2284-03, 2132-04, 65323-3 #### [facility] ([id number]) [address] [place] [address] MYELOCYTE 2.8 % Normal [facility] Comment on above: Performed By: #### C MP, THYR, 2284-03, 2132-04, 51567-7 #### [facility] ([id number]) [address], [address] [place] [address] Neutrophils (Bld) [#/Vol] 7.5 10*3/uL High 1.5-6.6 [facility] Comment on above: Performed By: #### C MP, THYR, 2283-, 2132-04, 15604-2 #### [facility] ([id number]) [address], [address] [place] [address] Platelet mean volume (Bld) [Entitic vol] 8.0 fL Normal 7-12 [facility] Comment on above: Performed By: #### C MP, THYR, 2283-8, 9, 03099-4 #### [facility] ([id number]) [address], [address] [place] [address] Platelets (Bld) [#/Vol] 181 10*3/uL Normal 150-450 [facility] Comment on above: Performed By: #### C MP, THYR, 228-8, 9, 42809-3 #### [facility] ([id number]) [address], [facility] [address] [place] [address] RBC COUNT 3.25 X10E12/L Low 3.80-5.20 [facility] Comment on above: Performed By: #### C MP, THYR, 2283-8, 9, 74793-9 #### [facility] ([id number]) [address], [facility] [address] [place] [address] RBC morphology finding Nom (Bld) NORMAL Normal [facility] Comment on above: Performed By: #### C MP, THYR, 2283-, 2132-04, 62737-3 #### [facility] ([id number]) [address] [address] [place] [address] SEG NEUTROPHIL 60.4 % Normal [facility] Comment on above: Performed By: #### C MP, THYR, 228-8, 2132-04, 58145-4 #### [facility] ([id number]) [address], [facility] [address] [place] [address] TOXIC GRANULATION 1+ Abnormal NONE [facility] Comment on above: Performed By: #### C MP, THYR, 228-8, 9, 63849-4 #### [facility] ([id number]) [address] [address] [place] [address] WBC (Bld) [#/Vol] 12.0 10*3/uL High 4.0-11.0 [facility] Comment on above: Performed By: #### C MP, THYR, 228-8, 2132-04, 03420-2 #### [facility] ([id number]) [address], [address] [place] [address] COMPREHENSIVE METABOLIC PANE Keenan 08-17-2023 Albumin [Mass/Vol] 2.0 g/dL Low 3.2-5.3 [facility] Comment on above: Performed By: #### C MP, THYR, 2284-03, 2132-04, 39002-7 #### [facility] ([id number]) [address], [address] [place] [address] ALP [Catalytic activity/Vol] 38 U/L Low 39-130 [facility] Comment on above: Performed By: #### C MP, THYR, 2284-03, 2132-04, 65019-1 #### [facility] ([id number]) [address], [address] [place] [address] ALT [Catalytic activity/Vol] 11 U/L Normal 0-31 [facility] Comment on above: Performed By: #### C MP, THYR, 2284-03, 2132-04, 88112-2 #### [facility] ([id number]) [address], [address] [place] [address] Anion gap [Moles/Vol] 4 mmol/L Low 5-15 [facility] Comment on above: Performed By: #### C MP, THYR, 2284-03, 2132-04, 28823-2 #### [facility] ([id number]) [address], [address] [place] [address] AST [Catalytic activity/Vol] 14 U/L Normal 0-41 [facility] Comment on above: Performed By: #### C MP, THYR, 2284-03, 2132-04, 12907-6 #### [facility] ([id number]) [address], [address] [place] [address] Bilirubin [Mass/Vol] 0.4 mg/dL Normal 0.3-1.2 [facility] Comment on above: Performed By: #### C MP, THYR, 2284-03, 2132-04, 60378-2 #### [facility] ([id number]) [address], [address] [place] [address] Calcium [Mass/Vol] 7.8 mg/dL Low 8.5-10.5 [facility] Comment on above: Performed By: #### C MP, THYR, 2284-03, 2132-04, 45097-4 #### [facility] ([id number]) [address] [place] [address] Chloride [Moles/Vol] 104 mmol/L Normal 98-109 [facility] Comment on above: Performed By: #### C BARTOLO, THYR, 2284-03, 2132-04, 57545-4 #### [facility] ([id number]) [address] [place] [address] CO2 [Moles/Vol] 26 mmol/L Normal 22-32 [facility] Comment on above: Performed By: #### C MP, THYR, 2284-03, 2132-04, 82071-5 #### [facility] ([id number]) [address], [address] [place] [address] Creatinine [Mass/Vol] 1.51 mg/dL High 0.40-1.00 [facility] Comment on above: Result Comment: METH OD TRACEABLE TO IDMS STANDARD Performed By: #### C MP, THYR, 2284-03, 2132-04, 67067-5 #### [facility] ([id number]) [address] [place] [address] GFR/1.73 sq M.predicted among non-blacks MDRD (S/P/Bld) [Vol rate/Area] 36 mL/min/{1.73_m2} Low >59 [facility] Comment on above: Result Comment: Reported eGFR is based on the CKD-EPI 2020 equation that does not use a race coefficient. Performed By: #### C MP, THYR, 2284-03, 2132-04, 48307-9 #### [facility] ([id number]) [address], [address] [place] [address] Glucose [Mass/Vol] 88 mg/dL Normal 65-99 [facility] Comment on above: Performed By: #### C MP, THYR, 2284-03, 2132-04, 29688-8 #### [facility] ([id number]) [address], [address] [place] [address] Potassium [Moles/Vol] 3.9 mmol/L Normal 3.5-5.0 [facility] Comment on above: Performed By: #### C MP, THYR, 2284-03, 2132-04, 30499-4 #### [facility] ([id number]) [address], [address] [place] [address] Protein [Mass/Vol] 5.8 g/dL Low 6.0-8.0 [facility] Comment on above: Performed By: #### C MP, THYR, 2284-03, 2132-04, 61632-8 #### [facility] ([id number]) [address], [address] [place] [address] Sodium [Moles/Vol] 134 mmol/L Normal 134-146 [facility] Comment on above: Performed By: #### C MP, THYR, 2284-03, 2132-04, 26760-2 #### [facility] ([id number]) [address] [place] [address] Urea nitrogen [Mass/Vol] 18 mg/dL Normal 5-27 [facility] Comment on above: Performed By: #### C MP, THYR, 2284-03, 2132-04, 97150-4 #### [facility] ([id number]) [address] [place] [address] MAGNESIUMon 08-17-2023 Magnesium [Mass/Vol] 2.3 mg/dL Normal 1.8-2.6 [facility] Comment on above: Performed By: #### C MP, THYR, 2284-03, 2132-04, 57659-3 #### [facility] ([id number]) [address] [address] CBC AND AUTO DIFFon 08-16-19 24 Band form neutrophils/100 WBC (Bld) 2.9 % Normal [facility] Comment on above: Performed By: #### C MP, THYR, 2284-03, 2132-04, 89415-7 #### [facility] ([id number]) [address] [address] Erythrocyte distribution width (RBC) [Ratio] 14.7 % Normal 11.5-15.0 [facility] Comment on above: Performed By: #### C MP, THYR, 2284-03, 2132-04, 59815-1 #### [facility] ([id number]) [address] [address] Hematocrit (Bld) [Volume fraction] 33.2 % Low 35-47 [facility] Comment on above: Performed By: #### C MP, THYR, 2284-03, 2132-04, 45955-5 #### [facility] ([id number]) [address] [address] [place] [address] Hemoglobin (Bld) [Mass/Vol] 11.0 g/dL Low 11.7-15.5 [facility] Comment on above: Performed By: #### C MP, THYR, 2284-03, 2132-04, 05034-8 #### [facility] ([id number]) [address] [place] [address] Lymphocytes (Bld) [#/Vol] 1.2 10*3/uL Normal 1.0-3.5 [facility] Comment on above: Performed By: #### C MP, THYR, 2284-03, 2132-04, 34302-5 #### [facility] ([id number]) [address], [facility] [address] [place] [address] Lymphocytes/100 WBC (Bld) 9.5 % Normal [facility] Comment on above: Performed By: #### C MP, THYR, 2284-03, 2132-04, 55210-9 #### [facility] ([id number]) [address], [address] [address] MCH (RBC) [Entitic mass] 32.3 pg Normal 27-34 [facility] Comment on above: Performed By: #### C MP, THYR, 2284-03, 2132-04, 81640-4 #### [facility] ([id number]) [address] [address] [place] [address] MCHC (RBC) [Mass/Vol] 33.1 g/dL Normal 32-36 [facility] Comment on above: Performed By: #### C MP, THYR, 2284-03, 2132-04, 29102-6 #### [facility] ([id number]) [address], [facility] [address] [place] [address] MCV (RBC) [Entitic vol] 98 fL Normal 80-100 [facility] Comment on above: Performed By: #### C MP, THYR, 2284-03, 2132-04, 69923-7 #### [facility] ([id number]) [address] [address] [place] [address] Metamyelocytes/100 WBC (Bld) 1.9 % Normal [facility] Comment on above: Performed By: #### C MP, THYR, 2284-03, 2132-04, 18532-7 #### [facility] ([id number]) [address], [address] [place] [address] Monocytes (Bld) [#/Vol] 2.0 10*3/uL High 0-0.9 [facility] Comment on above: Performed By: #### C MP, THYR, 2284-03, 2132-04, 15750-7 #### [facility] ([id number]) [address], [address] [place] [address] Monocytes/100 WBC (Bld) 15.2 % Normal [facility] Comment on above: Performed By: #### C MP, THYR, 2284-03, 2132-04, 56813-0 #### [facility] ([id number]) [address], [address] [place] [address] MYELOCYTE 1.0 % Normal [facility] Comment on above: Performed By: #### C MP, THYR, 2284-03, 2132-04, 59869-5 #### [facility] ([id number]) [address], [address] [place] [address] Neutrophils (Bld) [#/Vol] 9.4 10*3/uL High 1.5-6.6 [facility] Comment on above: Performed By: #### C MP, THYR, 2284-03, 2132-04, 37078-9 #### [facility] ([id number]) [address] [place] [address] Platelet mean volume (Bld) [Entitic vol] 8.1 fL Normal 7-12 [facility] Comment on above: Performed By: #### C MP, THYR, 2284-03, 2132-04, 38417-1 #### [facility] ([id number]) [address] [place] [address] Platelets (Bld) [#/Vol] 190 10*3/uL Normal 150-450 [facility] Comment on above: Performed By: #### C MP, THYR, 2284-03, 2132-04, 57839-2 #### [facility] ([id number]) [address] [place] [address] RBC COUNT 3.40 X10E12/L Low 3.80-5.20 [facility] Comment on above: Performed By: #### C MP, THYR, 8, 2132-04, 74820-0 #### [facility] ([id number]) [address] [place] [address] RBC morphology finding Nom (Bld) NORMAL Normal [facility] Comment on above: Performed By: #### C MP, THYR, 2284-03, 2132-04, 75922-7 #### [facility] ([id number]) [address], [address] [place] [address] SEG NEUTROPHIL 69.5 % Normal [facility] Comment on above: Performed By: #### C MP, THYR, 2284-03, 2132-04, 90115-2 #### [facility] ([id number]) [address] [place] [address] WBC (Bld) [#/Vol] 12.9 10*3/uL High 4.0-11.0 [facility] Comment on above: Performed By: #### C MP, THYR, 2284-03, 2132-04, 27553-2 #### [facility] ([id number]) [address] [place] [address] COMPREHENSIVE METABOLIC PANE Keenan 08-16-2023 Albumin [Mass/Vol] 2.0 g/dL Low 3.2-5.3 [facility] Comment on above: Performed By: #### C MP, THYR, 2284-03, 2132-04, 91995-7 #### [facility] ([id number]) [address], [address] [place] [address] ALP [Catalytic activity/Vol] 40 U/L Normal 39-130 [facility] Comment on above: Performed By: #### C MP, THYR, 2284-03, 2132-04, 32594-8 #### [facility] ([id number]) [address], [address] [place] [address] ALT [Catalytic activity/Vol] 8 U/L Normal 0-31 [facility] Comment on above: Performed By: #### C MP, THYR, 2284-03, 2132-04, 43796-1 #### [facility] ([id number]) [address] [place] [address] Anion gap [Moles/Vol] 7 mmol/L Normal 5-15 [facility] Comment on above: Performed By: #### C MP, THYR, 2284-03, 2132-04, 20215-0 #### [facility] ([id number]) [address], [address] [place] [address] AST [Catalytic activity/Vol] 15 U/L Normal 0-41 [facility] Comment on above: Performed By: #### C MP, THYR, 2284-03, 2132-04, 16782-3 #### [facility] ([id number]) [address], [address] [place] [address] Bilirubin [Mass/Vol] 0.4 mg/dL Normal 0.3-1.2 [facility] Comment on above: Performed By: #### C MP, THYR, 2284-03, 2132-04, 10490-5 #### [facility] ([id number]) [address], [address] [place] [address] Calcium [Mass/Vol] 7.9 mg/dL Low 8.5-10.5 [facility] Comment on above: Performed By: #### C BARTOLO, THYR, 2284-03, 2132-04, 22073-3 #### [facility] ([id number]) [address], [address] [place] [address] Chloride [Moles/Vol] 104 mmol/L Normal 98-109 [facility] Comment on above: Performed By: #### C MP, THYR, 2284-03, 2132-04, 63391-0 #### [facility] ([id number]) [address], [address] [place] [address] CO2 [Moles/Vol] 23 mmol/L Normal 22-32 [facility] Comment on above: Performed By: #### C BARTOLO, THYR, 2284-03, 2132-04, 40085-5 #### [facility] ([id number]) [address] [place] [address] Creatinine [Mass/Vol] 1.37 mg/dL High 0.40-1.00 [facility] Comment on above: Result Comment: METH OD TRACEABLE TO IDMS STANDARD Performed By: #### C BARTOLO, THYR, 2284-03, 2132-04, 45273-2 #### [facility] ([id number]) [address] [place] [address] GFR/1.73 sq M.predicted among non-blacks MDRD (S/P/Bld) [Vol rate/Area] 41 mL/min/{1.73_m2} Low >59 [facility] Comment on above: Result Comment: Reported eGFR is based on the CKD-EPI 2020 equation that does not use a race coefficient. Performed By: #### C MP, THYR, 2284-03, 2132-04, 39466-3 #### [facility] ([id number]) [address] [place] [address] Glucose [Mass/Vol] 96 mg/dL Normal 65-99 [facility] Comment on above: Performed By: #### C MP, THYR, 2284-03, 2132-04, 39522-3 #### [facility] ([id number]) [address], [address] [place] [address] Potassium [Moles/Vol] 4.0 mmol/L Normal 3.5-5.0 [facility] Comment on above: Performed By: #### C MP, THYR, 2284-03, 2132-04, 63976-9 #### [facility] ([id number]) [address], [address] [place] [address] Protein [Mass/Vol] 5.8 g/dL Low 6.0-8.0 [facility] Comment on above: Performed By: #### C MP, THYR, 2284-03, 2132-04, 53944-8 #### [facility] ([id number]) [address], [address] [place] [address] Sodium [Moles/Vol] 134 mmol/L Normal 134-146 [facility] Comment on above: Performed By: #### C MP, THYR, 2284-03, 2132-04, 22324-6 #### [facility] ([id number]) [address] [place] [address] Urea nitrogen [Mass/Vol] 17 mg/dL Normal 5-27 [facility] Comment on above: Performed By: #### C MP, THYR, 2284-03, 2132-04, 01495-5 #### [facility] ([id number]) [address] [place] [address] Calcium.ionized (Bld) [Moles /Vol]on 08-16-2023 PORTABLE ICA 4.8 mg/dL Normal 4.5-5.3 [facility] Comment on above: Performed By: #### C MP, THYR, 2284-03, 2132-04, 68300-6 #### [facility] ([id number]) [address] [place] [address] Lipid 1996 panelon 4 Cholesterol [Mass/Vol] 94 mg/dL Low 150-200 [facility] Comment on above: Performed By: #### Ever MCFARLAND, THYR, 2284-03, 2132-04, 43010-2 #### [facility] ([id number]) [address] [place] [address] Cholesterol in HDL [Mass/Vol] 19 mg/dL Low >39 [facility] Comment on above: Result Comment: HDL <40 mg/dL - High Risk HDL > or = 40mg/dL- Desirable HDL >60 mg/dL - Negative Risk Performed By: #### Ever MCFAR[place], THYR, 2284-03, 2132-04, 49753-4 #### [facility] ([id number]) [address] [place] [address] Cholesterol in LDL [Mass/Vol] 51 mg/dL Normal <130 [facility] Comment on above: Result Comment: LDL <100 mg/dL - Desirable LDL >160 mg/dL - High Risk Performed By: #### Ever MCFARLAND, THYR, 2284-03, 2132-04, 81716-3 #### [facility] ([id number]) [address], [address] [place] [address] Cholesterol in VLDL [Mass/Vol] 24 mg/dL Normal 0-30 [facility] Comment on above: Performed By: #### Ever MP, THYR, 2284-03, 2132-04, 21613-1 #### [facility] ([id number]) [address], [address] [place] [address] CHOLESTEROL:HDL 4.9 Normal 1.0-5.0 [facility] Comment on above: Performed By: #### C MP, THYR, 2284-03, 2132-04, 85011-4 #### [facility] ([id number]) [address], [address] [place] [address] Triglyceride [Mass/Vol] 122 mg/dL Normal 27-150 [facility] Comment on above: Performed By: #### C MP, THYR, 2284-03, 2132-04, 49717-4 #### [facility] ([id number]) [address], [address] [place] [address] MAGNESIUMon 08-16-2023 Magnesium [Mass/Vol] 2.6 mg/dL Normal 1.8-2.6 [facility] Comment on above: Performed By: #### C MP, THYR, 2284-03, 2132-04, 75249-5 #### [facility] ([id number]) [address], [address] [place] [address] Magnesium [Mass/Vol] 1.8 mg/dL Normal 1.8-2.6 [facility] Comment on above: Performed By: #### C MP, THYR, 2284-03, 2132-04, 22799-5 #### [facility] ([id number]) [address], [address] [place] [address] CBC AND AUTO DIFFon 08-15-19 24 ABSOLUTE BASOPHIL 0.0 X10E9/L Normal 0.0-0.2 [facility] Comment on above: Performed By: #### C MP, THYR, 2284-03, 2132-04, 19878-8 #### [facility] ([id number]) [address], [address] [place] [address] ABSOLUTE NEUTROPHIL 8.0 X10E9/L High 1.5-6.6 [facility] Comment on above: Performed By: #### C MP, THYR, 2284-03, 2132-04, 25680-0 #### [facility] ([id number]) [address], [address] [place] [address] Basophils/100 WBC (Bld) 0.2 % Normal [facility] Comment on above: Performed By: #### C MP, THYR, 2284-03, 2132-04, 06477-0 #### [facility] ([id number]) [address], [address] [place] [address] Eosinophils (Bld) [#/Vol] 0.1 10*3/uL Normal 0.0-0.4 [facility] Comment on above: Performed By: #### C MP, THYR, 2284-03, 2132-04, 55506-5 #### [facility] ([id number]) [address], [address] [place] [address] Eosinophils/100 WBC (Bld) 0.8 % Normal [facility] Comment on above: Performed By: #### C MP, THYR, 2284-03, 2132-04, 71117-7 #### [facility] ([id number]) [address], [address] [place] [address] Erythrocyte distribution width (RBC) [Ratio] 14.4 % Normal 11.5-15.0 [facility] Comment on above: Performed By: #### C MP, THYR, 2284-03, 2132-04, 02863-1 #### [facility] ([id number]) [address], [address] [place] [address] Hematocrit (Bld) [Volume fraction] 31.3 % Low 35-47 [facility] Comment on above: Performed By: #### C MP, THYR, 2284-03, 2132-04, 31630-4 #### [facility] ([id number]) [address], [address] [place] [address] Hemoglobin (Bld) [Mass/Vol] 10.3 g/dL Low 11.7-15.5 [facility] Comment on above: Performed By: #### C MP, THYR, 2284-03, 2132-04, 79961-3 #### [facility] ([id number]) [address], [facility] [address] [place] [address] Lymphocytes (Bld) [#/Vol] 0.9 10*3/uL Low 1.0-3.5 [facility] Comment on above: Performed By: #### C MP, THYR, 2284-03, 2132-04, 55281-0 #### [facility] ([id number]) [address], [address] [place] [address] Lymphocytes/100 WBC (Bld) 7.7 % Normal [facility] Comment on above: Performed By: #### C MP, THYR, 2284-03, 2132-04, 37082-1 #### [facility] ([id number]) [address], [address] [place] [address] MCH (RBC) [Entitic mass] 32.1 pg Normal 27-34 [facility] Comment on above: Performed By: #### C MP, THYR, 2284-03, 2132-04, 70581-5 #### [facility] ([id number]) [address], [address] [place] [address] MCHC (RBC) [Mass/Vol] 33.0 g/dL Normal 32-36 [facility] Comment on above: Performed By: #### C MP, THYR, 2284-03, 2132-04, 89529-7 #### [facility] ([id number]) [address], [address] [place] [address] MCV (RBC) [Entitic vol] 97 fL Normal 80-100 [facility] Comment on above: Performed By: #### C MP, THYR, 2284-03, 2132-04, 93632-5 #### [facility] ([id number]) [address], [address] [place] [address] Monocytes (Bld) [#/Vol] 2.2 10*3/uL High 0-0.9 [facility] Comment on above: Performed By: #### C MP, THYR, 2284-03, 2132-04, 75040-6 #### [facility] ([id number]) [address], [address] [place] [address] Monocytes/100 WBC (Bld) 20.0 % Normal [facility] Comment on above: Performed By: #### C MP, THYR, 2284-03, 2132-04, 41040-9 #### [facility] ([id number]) [address], [facility] [address] [place] [address] Neutrophils/100 WBC (Bld) 71.3 % Normal [facility] Comment on above: Performed By: #### C MP, THYR, 2284-03, 2132-04, 48643-3 #### [facility] ([id number]) [address], [address] [place] [address] Platelet mean volume (Bld) [Entitic vol] 8.1 fL Normal 7-12 [facility] Comment on above: Performed By: #### C MP, THYR, 2284-03, 2132-04, 03292-8 #### [facility] ([id number]) [address], [address] [place] [address] Platelets (Bld) [#/Vol] 186 10*3/uL Normal 150-450 [facility] Comment on above: Performed By: #### C MP, THYR, 2284-03, 2132-04, 12184-3 #### [facility] ([id number]) [address], [address] [place] [address] RBC COUNT 3.22 X10E12/L Low 3.80-5.20 [facility] Comment on above: Performed By: #### C MP, THYR, 2283-8, 9, 27623-8 #### [facility] ([id number]) [address], [address] [place] [address] WBC (Bld) [#/Vol] 11.2 10*3/uL High 4.0-11.0 [facility] Comment on above: Performed By: #### C MP, THYR, 8, 2132-04, 31973-0 #### [facility] ([id number]) [address], [address] [place] [address] COMPREHENSIVE METABOLIC PANE [facility] 08-15-2023 Albumin [Mass/Vol] 2.0 g/dL Low 3.2-5.3 [facility] Comment on above: Performed By: #### C MP, THYR, 2284-03, 2132-04, 31951-6 #### [facility] ([id number]) [address], [address] [place] [address] ALP [Catalytic activity/Vol] 39 U/L Normal 39-130 [facility] Comment on above: Performed By: #### C MP, THYR, 2283-8, 2132-04, 60179-4 #### [facility] ([id number]) [address], [address] [place] [address] ALT [Catalytic activity/Vol] 9 U/L Normal 0-31 [facility] Comment on above: Performed By: #### C MP, THYR, 2283-8, 9, 93312-2 #### [facility] ([id number]) [address], [address] [place] [address] Anion gap [Moles/Vol] 7 mmol/L Normal 5-15 [facility] Comment on above: Performed By: #### C MP, THYR, 2284-03, 2132-04, 22770-8 #### [facility] ([id number]) [address], [address] [place] [address] AST [Catalytic activity/Vol] 16 U/L Normal 0-41 [facility] Comment on above: Performed By: #### C MP, THYR, 2284-03, 2132-04, 26569-4 #### [facility] ([id number]) [address], [address] [place] [address] Bilirubin [Mass/Vol] 0.3 mg/dL Normal 0.3-1.2 [facility] Comment on above: Performed By: #### C MP, THYR, 2284-03, 2132-04, 00004-3 #### [facility] ([id number]) [address], [address] [place] [address] Calcium [Mass/Vol] 7.9 mg/dL Low 8.5-10.5 [facility] Comment on above: Performed By: #### C MP, THYR, 2284-03, 2132-04, 13552-2 #### [facility] ([id number]) [address], [address] [place] [address] Chloride [Moles/Vol] 106 mmol/L Normal 98-109 [facility] Comment on above: Performed By: #### C MP, THYR, 2284-03, 2132-04, 17965-1 #### [facility] ([id number]) [address], [address] [place] [address] CO2 [Moles/Vol] 24 mmol/L Normal 22-32 [facility] Comment on above: Performed By: #### C MP, THYR, 2284-03, 2132-04, 29364-2 #### [facility] ([id number]) [address], [address] [place] [address] Creatinine [Mass/Vol] 1.37 mg/dL High 0.40-1.00 [facility] Comment on above: Result Comment: METH OD TRACEABLE TO IDMS STANDARD Performed By: #### C MP, THYR, 2284-03, 2132-04, 12855-3 #### [facility] ([id number]) [address], [address] [place] [address] GFR/1.73 sq M.predicted among non-blacks MDRD (S/P/Bld) [Vol rate/Area] 41 mL/min/{1.73_m2} Low >59 [facility] Comment on above: Result Comment: Reported eGFR is based on the CKD-EPI 2020 equation that does not use a race coefficient. Performed By: #### C MP, THYR, 2284-03, 2132-04, 93910-5 #### [facility] ([id number]) [address], [address] [place] [address] Glucose [Mass/Vol] 90 mg/dL Normal 65-99 [facility] Comment on above: Performed By: #### C MP, THYR, 2284-03, 2132-04, 65644-4 #### [facility] ([id number]) [address], [address] [place] [address] Potassium [Moles/Vol] 3.7 mmol/L Normal 3.5-5.0 [facility] Comment on above: Performed By: #### C MP, THYR, 2284-03, 2132-04, 88944-2 #### [facility] ([id number]) [address], [address] [place] [address] Protein [Mass/Vol] 5.8 g/dL Low 6.0-8.0 [facility] Comment on above: Performed By: #### C MP, THYR, 2284-03, 2132-04, 87428-3 #### [facility] ([id number]) [address], [address] [place] [address] Sodium [Moles/Vol] 137 mmol/L Normal 134-146 [facility] Comment on above: Performed By: #### C MP, THYR, 2284-03, 2132-04, 37748-4 #### [facility] ([id number]) [address], [address] [place] [address] Urea nitrogen [Mass/Vol] 21 mg/dL Normal 5-27 [facility] Comment on above: Performed By: #### C MP, THYR, 2284-03, 2132-04, 24726-5 #### [facility] ([id number]) [address], [address] [place] [address] MAGNESIUMon 08-15-2023 Magnesium [Mass/Vol] 1.8 mg/dL Normal 1.8-2.6 [facility] Comment on above: Performed By: #### C MP, THYR, 2284-03, 2132-04, 05684-7 #### [facility] ([id number]) [address], [address] [place] [address] CBC AND AUTO DIFFon 08-14-20 ABSOLUTE BASOPHIL 0.0 X10E9/L Normal 0.0-0.2 [facility] Comment on above: Performed By: #### C MP, THYR, 2284-03, 2132-04, 71624-3 #### [facility] ([id number]) [address], [address] [place] [address] ABSOLUTE NEUTROPHIL 8.6 X10E9/L High 1.5-6.6 [facility] Comment on above: Performed By: #### C MP, THYR, 2284-03, 2132-04, 91301-9 #### [facility] ([id number]) [address], [address] [place] [address] Basophils/100 WBC (Bld) 0.3 % Normal [facility] Comment on above: Performed By: #### C MP, THYR, 2284-03, 2132-04, 64458-3 #### [facility] ([id number]) [address], [address] [place] [address] Eosinophils (Bld) [#/Vol] 0.0 10*3/uL Normal 0.0-0.4 [facility] Comment on above: Performed By: #### C MP, THYR, 2284-03, 2132-04, 48334-1 #### [facility] ([id number]) [address], [address] [place] [address] Eosinophils/100 WBC (Bld) 0.3 % Normal [facility] Comment on above: Performed By: #### C MP, THYR, 2284-03, 2132-04, 08031-3 #### [facility] ([id number]) [address], [address] [place] [address] Erythrocyte distribution width (RBC) [Ratio] 14.3 % Normal 11.5-15.0 [facility] Comment on above: Performed By: #### C MP, THYR, 2284-03, 2132-04, 30603-3 #### [facility] ([id number]) [address], [address] [place] [address] Hematocrit (Bld) [Volume fraction] 32.3 % Low 35-47 [facility] Comment on above: Performed By: #### C MP, THYR, 2284-03, 2132-04, 91914-7 #### [facility] ([id number]) [address], [address] [place] [address] Hemoglobin (Bld) [Mass/Vol] 10.5 g/dL Low 11.7-15.5 [facility] Comment on above: Performed By: #### C MP, THYR, 2284-03, 2132-04, 91463-9 #### [facility] ([id number]) [address], [facility] [address] [place] [address] Lymphocytes (Bld) [#/Vol] 0.9 10*3/uL Low 1.0-3.5 [facility] Comment on above: Performed By: #### C MP, THYR, 2284-03, 2132-04, 88872-4 #### [facility] ([id number]) [address], [facility] [address] [place] [address] Lymphocytes/100 WBC (Bld) 7.9 % Normal [facility] Comment on above: Performed By: #### C MP, THYR, 2284-03, 2132-04, 81963-8 #### [facility] ([id number]) [address], [address] [place] [address] MCH (RBC) [Entitic mass] 31.7 pg Normal 27-34 [facility] Comment on above: Performed By: #### C MP, THYR, 2284-03, 2132-04, 88199-9 #### [facility] ([id number]) [address], [address] [place] [address] MCHC (RBC) [Mass/Vol] 32.5 g/dL Normal 32-36 [facility] Comment on above: Performed By: #### C MP, THYR, 2284-03, 2132-04, 73162-7 #### [facility] ([id number]) [address] [address] [place] [address] MCV (RBC) [Entitic vol] 98 fL Normal 80-100 [facility] Comment on above: Performed By: #### C MP, THYR, 2284-03, 2132-04, 41309-1 #### [facility] ([id number]) [address], [address] [place] [address] Monocytes (Bld) [#/Vol] 2.0 10*3/uL High 0-0.9 [facility] Comment on above: Performed By: #### C MP, THYR, 2284-03, 2132-04, 63386-9 #### [facility] ([id number]) [address], [address] [place] [address] Monocytes/100 WBC (Bld) 17.2 % Normal [facility] Comment on above: Performed By: #### C MP, THYR, 2284-03, 2132-04, 83927-5 #### [facility] ([id number]) [address], [address] [place] [address] Neutrophils/100 WBC (Bld) 74.3 % Normal [facility] Comment on above: Performed By: #### C MP, THYR, 2284-03, 2132-04, 44270-1 #### [facility] ([id number]) [address], [address] [place] [address] Platelet mean volume (Bld) [Entitic vol] 8.4 fL Normal 7-12 [facility] Comment on above: Performed By: #### C MP, THYR, 2284-03, 2132-04, 07161-2 #### [facility] ([id number]) [address], [address] [place] [address] Platelets (Bld) [#/Vol] 207 10*3/uL Normal 150-450 [facility] Comment on above: Performed By: #### C MP, THYR, 2284-03, 2132-04, 10285-2 #### [facility] ([id number]) [address], [address] [place] [address] RBC COUNT 3.31 X10E12/L Low 3.80-5.20 [facility] Comment on above: Performed By: #### C MP, THYR, 2283-8, 9, 27556-6 #### [facility] ([id number]) [address], [address] [place] [address] RBC morphology finding Nom (Bld) NORMAL Normal [facility] Comment on above: Performed By: #### C MP, THYR, 2283-8, 9, 12547-0 #### [facility] ([id number]) [address], [address] [place] [address] WBC (Bld) [#/Vol] 11.6 10*3/uL High 4.0-11.0 [facility] Comment on above: Performed By: #### C MP, THYR, 2283-8, 9, 80688-6 #### [facility] ([id number]) [address] [place] [address] COMPREHENSIVE METABOLIC PANE [facility] 08-14-2023 Albumin [Mass/Vol] 2.1 g/dL Low 3.2-5.3 [facility] Comment on above: Performed By: #### C MP, THYR, 2284-03, 2132-04, 75647-7 #### [facility] ([id number]) [address], [address] [place] [address] ALP [Catalytic activity/Vol] 40 U/L Normal 39-130 [facility] Comment on above: Performed By: #### C MP, THYR, 2283-8, 9, 02368-0 #### [facility] ([id number]) [address], [address] [place] [address] ALT [Catalytic activity/Vol] 11 U/L Normal 0-31 [facility] Comment on above: Performed By: #### C MP, THYR, 2284-8, 2131-9, 93296-6 #### [facility] ([id number]) [address] [place] [address] Anion gap [Moles/Vol] 6 mmol/L Normal 5-15 [facility] Comment on above: Performed By: #### C MP, THYR, 2284-03, 2132-04, 46646-4 #### [facility] ([id number]) [address], [address] [place] [address] AST [Catalytic activity/Vol] 14 U/L Normal 0-41 [facility] Comment on above: Performed By: #### C MP, THYR, 2284-03, 2132-04, 90928-7 #### [facility] ([id number]) [address], [address] [place] [address] Bilirubin [Mass/Vol] 0.5 mg/dL Normal 0.3-1.2 [facility] Comment on above: Performed By: #### C MP, THYR, 2284-03, 2132-04, 16889-7 #### [facility] ([id number]) [address], [address] [place] [address] Calcium [Mass/Vol] 7.8 mg/dL Low 8.5-10.5 [facility] Comment on above: Performed By: #### C BARTOLO, THYR, 2284-03, 2132-04, 69048-8 #### [facility] ([id number]) [address], [address] [place] [address] Chloride [Moles/Vol] 108 mmol/L Normal 98-109 [facility] Comment on above: Performed By: #### C MP, THYR, 2284-03, 2132-04, 28648-8 #### [facility] ([id number]) [address], [address] [place] [address] CO2 [Moles/Vol] 24 mmol/L Normal 22-32 [facility] Comment on above: Performed By: #### C BARTOLO, THYR, 2284-03, 2132-04, 01823-5 #### [facility] ([id number]) [address], [address] [place] [address] Creatinine [Mass/Vol] 1.50 mg/dL High 0.40-1.00 [facility] Comment on above: Result Comment: METH OD TRACEABLE TO IDMS STANDARD Performed By: #### C MP, THYR, 2284-03, 2132-04, 42314-0 #### [facility] ([id number]) [address], [address] [place] [address] GFR/1.73 sq M.predicted among non-blacks MDRD (S/P/Bld) [Vol rate/Area] 37 mL/min/{1.73_m2} Low >59 [facility] Comment on above: Result Comment: Reported eGFR is based on the CKD-EPI 2020 equation that does not use a race coefficient. Performed By: #### C MP, THYR, 2284-03, 2132-04, 20146-5 #### [facility] ([id number]) [address], [address] [place] [address] Glucose [Mass/Vol] 97 mg/dL Normal 65-99 [facility] Comment on above: Performed By: #### C BARTOLO, THYR, 2284-03, 2132-04, 38993-5 #### [facility] ([id number]) [address], [address] [place] [address] Potassium [Moles/Vol] 4.1 mmol/L Normal 3.5-5.0 [facility] Comment on above: Performed By: #### C MP, THYR, 2284-03, 2132-04, 92749-2 #### [facility] ([id number]) [address], [address] [place] [address] Protein [Mass/Vol] 6.0 g/dL Normal 6.0-8.0 [facility] Comment on above: Performed By: #### C MP, THYR, 2284-03, 2132-04, 76494-5 #### [facility] ([id number]) [address], [address] [place] [address] Sodium [Moles/Vol] 138 mmol/L Normal 134-146 [facility] Comment on above: Performed By: #### C MP, THYR, 2284-03, 2132-04, 53916-1 #### [facility] ([id number]) [address], [address] [place] [address] Urea nitrogen [Mass/Vol] 29 mg/dL High 5-27 [facility] Comment on above: Performed By: #### C MP, THYR, 2284-03, 2132-04, 70696-9 #### [facility] ([id number]) [address], [address] [place] [address] Calcium.ionized (Bld) [Moles /Vol]on 08-14-2023 PORTABLE ICA 4.7 mg/dL Normal 4.5-5.3 [facility] Comment on above: Performed By: #### C MP, THYR, 2284-03, 2132-04, 65055-7 #### [facility] ([id number]) [address], [address] [place] [address] MAGNESIUMon 08-14-2023 Magnesium [Mass/Vol] 2.1 mg/dL Normal 1.8-2.6 [facility] Comment on above: Performed By: #### C MP, THYR, 2284-03, 2132-04, 42280-3 #### [facility] ([id number]) [address], [address] [place] [address] CBC AND AUTO DIFFon 08-13-20 23 Band form neutrophils/100 WBC (Bld) 1.9 % Normal [facility] Comment on above: Performed By: #### C BCA, CMP, , #### [facility] ([id number]) [address] [place] [address] Erythrocyte distribution width (RBC) [Ratio] 14.4 % Normal 11.5-15.0 [facility] Comment on above: Performed By: #### C BCA, CMP, , 64039-7 #### [facility] ([id number]) [address] [place] [address] Hematocrit (Bld) [Volume fraction] 39.2 % Normal 35-47 [facility] Comment on above: Performed By: #### C OLIVER, CMP, , 05977-6 #### [facility] ([id number]) [address] [place] [address] Hemoglobin (Bld) [Mass/Vol] 12.9 g/dL Normal 11.7-15.5 [facility] Comment on above: Performed By: #### C BCA [facility], , 09922-5 #### [facility] ([id number]) [address] [place] [address] LYMPHOCYTE, ATYPICAL 1.0 % Normal [facility] Comment on above: Performed By: #### C [facility], [facility], , 27161-5 #### [facility] ([id number]) [address] [place] [address] Lymphocytes (Bld) [#/Vol] 0.8 10*3/uL Low 1.0-3.5 [facility] Comment on above: Performed By: #### C BCA, CMP, , 98887-0 #### [facility] ([id number]) [address] [place] [address] Lymphocytes/100 WBC (Bld) 4.8 % Normal [facility] Comment on above: Performed By: #### C BCA, CMP, , 73012-4 #### [facility] ([id number]) [address] [place] [address] MCH (RBC) [Entitic mass] 32.2 pg Normal 27-34 [facility] Comment on above: Performed By: #### C BCA, CMP, 98011-0, 92415-8 #### [facility] ([id number]) [address] [place] [address] MCHC (RBC) [Mass/Vol] 32.9 g/dL Normal 32-36 [facility] Comment on above: Performed By: #### C BCA, CMP, 56941-4, 89608-7 #### [facility] ([id number]) [address] [place] [address] MCV (RBC) [Entitic vol] 98 fL Normal 80-100 [facility] Comment on above: Performed By: #### C BCA, CMP, 11400-7, 57282-2 #### [facility] ([id number]) [address] [place] [address] Monocytes (Bld) [#/Vol] 0.7 10*3/uL Normal 0-0.9 [facility] Comment on above: Performed By: #### C BCA, CMP, 79704-5, 99037-8 #### [facility] ([id number]) [address] [place] [address] Monocytes/100 WBC (Bld) 4.8 % Normal [facility] Comment on above: Performed By: #### C BCA, CMP, 35954-9, 60565-5 #### [facility] ([id number]) [address] [place] [address] MYELOCYTE 1.9 % Normal [facility] Comment on above: Performed By: #### C BCA, CMP, 11035-7, 49327-0 #### [facility] ([id number]) [address] [place] [address] Neutrophils (Bld) [#/Vol] 12.0 10*3/uL High 1.5-6.6 [facility] Comment on above: Performed By: #### C BCA, CMP, 15283-0, 71991-7 #### [facility] ([id number]) [address] [place] [address] Platelet mean volume (Bld) [Entitic vol] 8.2 fL Normal 7-12 [facility] Comment on above: Performed By: #### C BCA, CMP, 94443-8, 50388-9 #### [facility] ([id number]) [address] [place] [address] Platelets (Bld) [#/Vol] 291 10*3/uL Normal 150-450 [facility] Comment on above: Performed By: #### C BCA, CMP, 53028-3, 08230-9 #### [facility] ([id number]) [address] [place] [address] RBC COUNT 4.00 X10E12/L Normal 3.80-5.20 [facility] Comment on above: Performed By: #### C BCA, CMP, 60018-2, 03048-5 #### [facility] ([id number]) [address] [place] [address] RBC morphology finding Nom (Bld) NORMAL Normal [facility] Comment on above: Performed By: #### C BCA, CMP, 97184-5, 18442-3 #### [facility] ([id number]) [address] [place] [address] SEG NEUTROPHIL 85.6 % Normal [facility] Comment on above: Performed By: #### C BCA, CMP, 99480-8, 03291-4 #### [facility] ([id number]) [address] [place] [address] WBC (Bld) [#/Vol] 13.6 10*3/uL High 4.0-11.0 [facility] Comment on above: Performed By: #### C BCA, CMP, 80805-6, 72646-6 #### [facility] ([id number]) [address] [place] [address] COMPREHENSIVE METABOLIC PANE Keenan 08-13-2023 Albumin [Mass/Vol] 2.8 g/dL Low 3.2-5.3 [facility] Comment on above: Performed By: #### C BCA, CMP, , 87919-7 #### [facility] ([id number]) [address] [place] [address] ALP [Catalytic activity/Vol] 50 U/L Normal 39-130 [facility] Comment on above: Performed By: #### C BCA, CMP, , 43127-9 #### [facility] ([id number]) [address] [place] [address] ALT [Catalytic activity/Vol] 8 U/L Normal 0-31 [facility] Comment on above: Performed By: #### C BCA, CMP, , 30583-3 #### [facility] ([id number]) [address] [place] [address] Anion gap [Moles/Vol] 11 mmol/L Normal 5-15 [facility] Comment on above: Performed By: #### C BCA, CMP, , 77327-1 #### [facility] ([id number]) [address] [place] [address] AST [Catalytic activity/Vol] 14 U/L Normal 0-41 [facility] Comment on above: Performed By: #### C BCA, CMP, , 77802-3 #### [facility] ([id number]) [address] [place] [address] Bilirubin [Mass/Vol] 0.7 mg/dL Normal 0.3-1.2 [facility] Comment on above: Performed By: #### C BCA, CMP, , 19425-9 #### [facility] ([id number]) [address] [place] [address] Calcium [Mass/Vol] 8.8 mg/dL Normal 8.5-10.5 [facility] Comment on above: Performed By: #### C BCA, CMP, , 03910-0 #### [facility] ([id number]) [address] [place] [address] Chloride [Moles/Vol] 104 mmol/L Normal 98-109 [facility] Comment on above: Performed By: #### C BCA, CMP, , 24097-2 #### [facility] ([id number]) [address] [place] [address] CO2 [Moles/Vol] 25 mmol/L Normal 22-32 [facility] Comment on above: Performed By: #### C BCA, CMP, , 00735-7 #### [facility] ([id number]) [address] [place] [address] Creatinine [Mass/Vol] 2.04 mg/dL High 0.40-1.00 [facility] Comment on above: Result Comment: METH OD TRACEABLE TO IDMS STANDARD Performed By: #### C ANSELMO BOYD, , #### [facility] ([id number]) [address] [place] [address] GFR/1.73 sq M.predicted among non-blacks MDRD (S/P/Bld) [Vol rate/Area] 25 mL/min/{1.73_m2} Low >59 [facility] Comment on above: Result Comment: Reported eGFR is based on the CKD-EPI 2020 equation that does not use a race coefficient. Performed By: #### C OLIVER, CMP, , #### [facility] ([id number]) [address] [place] [address] Glucose [Mass/Vol] 109 mg/dL High 65-99 [facility] Comment on above: Performed By: #### C BCA, CMP, , 76753-4 #### [facility] ([id number]) [address] [place] [address] Potassium [Moles/Vol] 4.1 mmol/L Normal 3.5-5.0 [facility] Comment on above: Performed By: #### C BCA, CMP, , 01102-6 #### [facility] ([id number]) [address] [place] [address] Protein [Mass/Vol] 7.9 g/dL Normal 6.0-8.0 [facility] Comment on above: Performed By: #### C BCA, CMP, 15563-3, 56255-3 #### [facility] ([id number]) [address] [place] [address] Sodium [Moles/Vol] 140 mmol/L Normal 134-146 [facility] Comment on above: Performed By: #### C BCA, CMP, 88275-7, 77587-9 #### [facility] ([id number]) [address] [place] [address] Urea nitrogen [Mass/Vol] 38 mg/dL High 5-27 [facility] Comment on above: Performed By: #### C OLIVER, CMP, 92363-1, 39423-4 #### [facility] ([id number]) [address] [place] [address] CT BRAIN WO CONTon CT BRAIN WO [...] Galo MD on 08/13/2023 10:38 AM Normal [facility] MAGNESIUMon 08-13-2023 Magnesium [Mass/Vol] 2.4 mg/dL Normal 1.8-2.6 [facility] Comment on above: Performed By: #### C [facility], 74988-1, 95666-5 #### [facility] ([id number]) [address] [place] [address] SARS/FLU A+B/RSV by NAAT/Mol ecularon 08-13-2023 SARS/FLU [...] operators who are performing tests using either [employer] or [facility] systems and is limited to laboratories that [...] repeat. Fact Sheet for Healthcare Providers: https://www.fda.gov/media/ 550440/download Fact Sheet for Patients: https://www.fda.gov/media/ 664386/download Normal [facility] Comment on above: Performed By: #### C MP, THYR, 2284-03, 2132-04, 71475-5 #### [facility] ([id number]) [address], [address] [place] [address] TROPONIN Ion 08-13-2023 Troponin I.cardiac [Mass/Vol] ng/mL Normal 0.00-0.04 [facility] Comment on above: Performed By: #### C BCA, CMP, 49134-8, 98734-9 #### [facility] ([id number]) [address] [place] [address] URINE CULTUREon 08-13-2023 Bacteria identified Cx Nom (U) CULTURE RESULTS <10,000 ORGANISMS/ML NORMAL URO GENITAL GERARD Normal [facility] Comment on above: Performed By: #### C MP, THYR, 2284-03, 2132-04, 49774-7 #### [facility] ([id number]) [address], [address] [place] [address] URN MACROSCOPIC NURon 2022 BILIRUBIN ORACIO Negative Normal NEG [facility] Comment on above: Performed By: #### C MP, THYR, 2284-03, 2132-04, 97202-9 #### [facility] ([id number]) [address], [address] [place] [address] BLOOD/HGB ORACIO Trace Abnormal NEG [facility] Comment on above: Performed By: #### C MP, THYR, 2284-03, 2132-04, 51391-2 #### [facility] ([id number]) [address], [address] [place] [address] GLUCOSE ORACIO Negative Normal NEG [facility] Comment on above: Performed By: #### C MP, THYR, 2284-03, 2132-04, 08603-2 #### [facility] ([id number]) [address], [address] [place] [address] KETONES ORACIO Trace Abnormal NEG [facility] Comment on above: Performed By: #### C MP, THYR, 2284-03, 2132-04, 84065-5 #### [facility] ([id number]) [address], [address] [place] [address] LEUKOCYTE ESTERASE ORACIO Negative Normal NEG [facility] Comment on above: Performed By: #### C MP, THYR, 2284-03, 2132-04, 81551-3 #### [facility] ([id number]) [address], [address] [place] [address] NITRITE ORACIO Negative Normal NEG [facility] Comment on above: Performed By: #### C MP, THYR, 2284-03, 2132-04, 18696-8 #### [facility] ([id number]) [address], [address] [place] [address] PH ORACIO 5.0 Normal 5.0-8.5 [facility] Comment on above: Performed By: #### C MP, THYR, 2284-03, 2132-04, 88992-3 #### [facility] ([id number]) [address], [address] [place] [address] PROTEIN ORACIO 100 mg/dL Abnormal NEG [facility] Comment on above: Performed By: #### C MP, THYR, 2284-03, 2132-04, 90565-0 #### [facility] ([id number]) [address], [address] [place] [address] SPECIFIC GRAVITY ORACIO 1.020 Normal 1.003-1.035 [facility] Comment on above: Performed By: #### C MP, THYR, 2284-03, 2132-04, 39882-3 #### [facility] ([id number]) [address], [address] [place] [address] UROBILINOGEN ORACIO 0.2 eu/dL Normal <1.1 [facility] Comment on above: Performed By: #### C MP, THYR, 228-8, 9, 16126-2 #### [facility] ([id number]) [address], [facility] [address] [place] [address] Urine collection deviceon ER EXTRA URINES ER EXTRA URINE ORDER IN PROCESS Normal [facility] Comment on above: Performed By: #### C MP, THYR, 2284-03, 2132-04, 92447-5 #### [facility] ([id number]) [address], [address] [address] XR CHEST 1 VWon 08-13-2023 XR CHEST 1 VW XR CHEST 1 VW XR CHEST 1 VW: 08/13/2023 10:35 AM Clinical: Syncope. Weakness. Upright portable chest obtained. No comparison Heart size is normal. No acute consolidation, large effusion, or pneumothorax. IMPRESSION: * No acute disease to limits of this portable exam. Finalized by Tyrell Galo MD on 08/13/2023 10:41 AM Normal [facility] COMPREHENSIVE METABOLIC PANE Keenan 08-12-2023 Albumin [Mass/Vol] 3.0 g/dL Low 3.2-5.3 [facility] Comment on above: Performed By: #### C MP, THYR, 2284-03, 2132-04, 25258-1 #### [facility] ([id number]) [address], [facility] [address] [place] [address] ALP [Catalytic activity/Vol] 51 U/L Normal 39-130 [facility] Comment on above: Performed By: #### C MP, THYR, 2284-8, 9, 55033-9 #### [facility] ([id number]) [address], [address] [place] [address] ALT [Catalytic activity/Vol] 5 U/L Normal 0-31 [facility] Comment on above: Performed By: #### C MP, THYR, 2284-03, 2132-04, 93334-5 #### [facility] ([id number]) [address], [address] [place], [place] [address] Anion gap [Moles/Vol] 12 mmol/L Normal 5-15 [facility] Comment on above: Performed By: #### C MP, THYR, 2284-03, 2132-04, 26887-1 #### [facility] ([id number]) [address], [address] [place] [address] AST [Catalytic activity/Vol] 8 U/L Normal 0-41 [facility] Comment on above: Performed By: #### C MP, THYR, 2284-03, 2132-04, 27366-5 #### [facility] ([id number]) [address], [address] [place] [address] Bilirubin [Mass/Vol] 0.5 mg/dL Normal 0.3-1.2 [facility] Comment on above: Performed By: #### C MP, THYR, 2284-03, 2132-04, 98302-2 #### [facility] ([id number]) [address], [address] [place] [address] Calcium [Mass/Vol] 8.8 mg/dL Normal 8.5-10.5 [facility] Comment on above: Performed By: #### C MP, THYR, 2284-03, 2132-04, 19463-4 #### [facility] ([id number]) [address], [address] [place] [address] Chloride [Moles/Vol] 101 mmol/L Normal 98-109 [facility] Comment on above: Performed By: #### C MP, THYR, 2284-03, 2132-04, 57152-9 #### [facility] ([id number]) [address], [address] [place] [address] CO2 [Moles/Vol] 26 mmol/L Normal 22-32 [facility] Comment on above: Performed By: #### C MP, THYR, 2284-03, 2132-04, 72438-0 #### [facility] ([id number]) [address], [address] [place] [address] Creatinine [Mass/Vol] 1.93 mg/dL High 0.40-1.00 [facility] Comment on above: Result Comment: METH OD TRACEABLE TO IDMS STANDARD Performed By: #### C BARTOLO, THYR, 2284-03, 2132-04, 80065-0 #### [facility] ([id number]) [address], [address] [place] [address] GFR/1.73 sq M.predicted among non-blacks MDRD (S/P/Bld) [Vol rate/Area] 27 mL/min/{1.73_m2} Low >59 [facility] Comment on above: Result Comment: Reported eGFR is based on the CKD-EPI 2020 equation that does not use a race coefficient. Performed By: #### C BARTOLO, THYR, 2284-03, 2132-04, 56932-7 #### [facility] ([id number]) [address], [address] [place] [address] Glucose [Mass/Vol] 98 mg/dL Normal 65-99 [facility] Comment on above: Performed By: #### C MP, THYR, 2284-03, 2132-04, 49898-9 #### [facility] ([id number]) [address], [address] [place] [address] Potassium [Moles/Vol] 4.0 mmol/L Normal 3.5-5.0 [facility] Comment on above: Performed By: #### C MP, THYR, 2284-03, 2132-04, 86798-9 #### [facility] ([id number]) [address], [address] [place] [address] Protein [Mass/Vol] 7.1 g/dL Normal 6.0-8.0 [facility] Comment on above: Performed By: #### C MP, THYR, 2284-03, 2132-04, 11235-6 #### [facility] ([id number]) [address], [address] [place] [address] Sodium [Moles/Vol] 139 mmol/L Normal 134-146 [facility] Comment on above: Performed By: #### C MP, THYR, 2284-03, 2132-04, 24038-5 #### [facility] ([id number]) [address], [address] [place] [address] Urea nitrogen [Mass/Vol] 32 mg/dL High 5-27 [facility] Comment on above: Performed By: #### C MP, THYR, 2284-03, 2132-04, 63376-9 #### [facility] ([id number]) [address], [address] [place] [address] Folate [Mass/Vol]on 08-12-20 FOLIC ACID 10.0 ng/mL Normal >5.8 [facility] Comment on above: Result Comment: NEW REFERENCE RANGE Performed By: #### C MP, THYR, 2284-03, 2132-04, 66575-6 #### [facility] ([id number]) [address], [address] [place] [address] THYROID PROFILEon 08-12-2023 Free T4 [Mass/Vol] 1.78 ng/dL High 0.61-1.60 [facility] Comment on above: Performed By: #### C MP, THYR, 2284-03, 2132-04, 69137-6 #### [facility] ([id number]) [address], [address] [place] [address] TSH 0.22 uIU/mL Low 0.49-4.67 [facility] Comment on above: Performed By: #### C BARTOLO, THYR, 2283-, 2132-04, 62807-5 #### [facility] ([id number]) [address], [address] [place] [address] VITAMIN B12on 08-12-2023 Cobalamin (Vitamin B12) [Mass/Vol] 538 pg/mL Normal 180-914 [facility] Comment on above: Performed By: #### C BARTOLO, THYR, 2284-03, 2132-04, 90544-8 #### [facility] ([id number]) [address], [address] [place] [address] Vitamin D+Metabolites [Mass/ Vol]on 08-12-2023 VITAMIN D 25 HYD TOT 17.6 ng/mL Low 30-100 [facility] Comment on above: Result Comment: Vitamin D status 25 [place] Vitamin D Deficiency <20 ng/mL Insufficiency 20-29 ng/mL Sufficiency 30-100 ng/mL Toxicity >100 ng/mL NOTE: A pediatric reference range has not been established by the huller operator of this kit. The [place] [employer] recommends a Vitamin D level of = or >20ng/mL in infants and children. Performed By: #### C BARTOLO, THYR, 2284-03, 2132-04, 25650-0 #### [facility] ([id number]) [address], [address] [place] [address] Basic Metab w/rfx MGon 08-06 Anion gap [Moles/Vol] 7 mmol/L Low 9-17 [facility] Comment on above: Performed By: #### P E #### [facility] [address] [place] [address] [employer] Vehicle Mechanic: Ramon Hussein MD Calcium [Mass/Vol] 8.4 mg/dL Low 8.6-10.4 [facility] Comment on above: Performed By: #### P E #### [address] [address] [employer] Mechanic: Ramon Hussein MD Chloride [Moles/Vol] 103 mmol/L Normal 98-107 [facility] Comment on above: Performed By: #### P E #### [address] [address] [employer] Mechanic: Ramon Hussein MD CO2 [Moles/Vol] 24 mmol/L Normal 20-31 [facility] Comment on above: Performed By: #### P E #### [address] [address] [employer] Mechanic: Ramon Hussein MD Creatinine [Mass/Vol] 1.8 mg/dL High 0.5-0.9 [facility] Comment on above: Performed By: #### P E #### [address] [address] [employer] Mechanic: Ramon Hussein MD GFR/1.73 sq M.predicted among non-blacks MDRD (S/P/Bld) [Vol rate/Area] 29 mL/min/{1.73_m2} Low >60 [facility] Comment on above: Result Comment: These results [...] secretion. Performed By: #### P E #### [address] [address] [employer] Mechanic: Ramon Hussein MD Glucose [Mass/Vol] 88 mg/dL Normal 70-99 [facility] Comment on above: Performed By: #### P E #### [facility] [address] [place] [address] [employer] Mechanic: Ramon Hussein MD Potassium [Moles/Vol] 4.4 mmol/L Normal 3.7-5.3 [facility] Comment on above: Performed By: #### P E #### [facility] [address] [place] [address] [employer] Mechanic: Ramon Hussein MD Sodium [Moles/Vol] 134 mmol/L Low 135-144 [facility] Comment on above: Performed By: #### P E #### [facility] [place] [address] [employer] Mechanic: Ramon Hussein MD Urea nitrogen [Mass/Vol] 22 mg/dL Normal 8-23 [facility] Comment on above: Performed By: #### P E #### [facility] [address] [place] [address] [employer] Mechanic: Ramon Hussein MD Basic Metabolic Panel w/ Ref kya to MGon 08-06-2023 Anion gap [Moles/Vol] 7 mmol/L Low 9 - 17 mmol/L [employer] Calcium [Mass/Vol] 8.4 mg/dL Low 8.6 - 10. 4 mg/dL [facility] Chloride [Moles/Vol] 103 mmol/L 98 - 107 mmol/L [facility] CO2 [Moles/Vol] 24 mmol/L 20 - 31 mmol/L [facility] Creatinine [Mass/Vol] 1.8 mg/dL High 0.5 - 0.9 mg/dL [facility] GFR/1.73 sq M.predicted MDRD (S/P/Bld) [Vol rate/Area] 29 mL/min/{1.73_m2} Low - [facility] Comment on above: These results are not [...] [Mass/Vol] 88 mg/dL 70 - 99 mg/dL [facility] Interpretation and review of laboratory results Abnormal [facility] Potassium [Moles/Vol] 4.4 mmol/L 3.7 - 5.3 mmol/L [facility] Sodium [Moles/Vol] 134 mmol/L Low 135 - 144 mmol/L [facility] Urea nitrogen [Mass/Vol] 22 mg/dL 8 - 23 mg/dL [facility] CBC with Auto Differentialon 08-06-2023 Basophils (Bld) [#/Vol] 0.05 10*3/uL [facility] Basophils/100 WBC (Bld) 1 % 0 - 2 % [facility] Eosinophils (Bld) [#/Vol] 0.26 10*3/uL [facility] Eosinophils/100 WBC (Bld) 3 % 1 - 4 % [facility] Erythrocyte distribution width (RBC) [Ratio] 14.6 % High 11.8 - 14.4 % [facility] Hematocrit (Bld) [Volume fraction] 36.9 % 36.3 - 47.1 % [facility] Hemoglobin (Bld) [Mass/Vol] 11.6 g/dL Low 11.9 - 15.1 g/dL [facility] Immature granulocytes (Bld) [#/Vol] 0.14 10*3/uL [facility] Immature granulocytes/100 WBC (Bld) 2 % High 0 [facility] Interpretation and review of laboratory results Abnormal [facility] Lymphocytes/100 WBC (Bld) 11 % Low 24 - 43 % [facility] Lymphocytes/100 WBC (Bld) 1.00 % Low [facility] MCH (RBC) [Entitic mass] 31.8 pg 25.2 - 33.5 pg [facility] MCHC (RBC) [Mass/Vol] 31.4 g/dL 28.4 - 34.8 g/dL [facility] MCV (RBC) [Entitic vol] 101.1 fL 82.6 - 102.9 fL [facility] Monocytes/100 WBC (Bld) 16 % High 3 - 12 % [facility] Monocytes/100 WBC (Bld) 1.46 % High [facility] Neutrophils/100 WBC (Bld) 67 % High 36 - 65 % [facility] Nucleated RBC/100 WBC (Bld) [Ratio] 0.0 % 0.0 per 100 WBC [facility] Platelet mean volume (Bld) [Entitic vol] 9.5 fL 8.1 - 13.5 fL [facility] Platelets (Bld) [#/Vol] 255 10*3/uL [facility] RBC (Bld) [#/Vol] 3.65 10*6/uL Low 3.95 - 5.1 1 m/uL [facility] RBC (Bld) [#/Vol] ANISOCYTOSIS PRESENT [facility] Segmented neutrophils/100 WBC (Bld) 5.97 % [facility] WBC other (Bld) [#/Vol] 8.9 [facility] CBC with Diffon 08-06-2023 Abs. Basophil 0.05 k/uL Normal 0.00-0.20 [facility] Comment on above: Performed By: #### P E #### [facility] [place] [id number] [employer] Mechanic: Ramon Hussein MD Abs.Imm.Granulocyt e 0.14 k/uL Normal 0.00-0.30 [facility] Comment on above: Performed By: #### P E #### [facility] [place] [id number] [employer] Mechanic: Ramon Hussein MD Abs.Neutrophil (Seg) 5.97 k/uL Normal 1.50-8.10 [facility] Comment on above: Performed By: #### P E #### [address] [address] [employer] Mechanic: Ramon Hussein MD Basophils/100 WBC (Bld) 1 % Normal 0-2 [facility] Comment on above: Performed By: #### P E #### [address] [address] [employer] Mechanic: Ramon Hussein MD Eosinophils (Bld) [#/Vol] 0.26 10*3/uL Normal 0.00-0.44 [facility] Comment on above: Performed By: #### P E #### [address] [address] [employer]: Ramon Hussein MD Eosinophils/100 WBC (Bld) 3 % Normal 1-4 [facility] Comment on above: Performed By: #### P E #### [address] [address] [employer]: Ramon Hussein MD Erythrocyte distribution width (RBC) [Ratio] 14.6 % High 11.8-14.4 [facility] Comment on above: Performed By: #### P E #### [address] [address] [employer]: Ramon Hussein MD Hematocrit (Bld) [Volume fraction] 36.9 % Normal 36.3-47.1 [facility] Comment on above: Performed By: #### P E #### [address] [address] [employer]: Ramon Hussein MD Hemoglobin (Bld) [Mass/Vol] 11.6 g/dL Low 11.9-15.1 [facility] Comment on above: Performed By: #### P E #### [address] [id number] [employer]: Ramon Hussein MD Immature granulocytes/100 WBC (Bld) 2 % High 0 [facility] Comment on above: Performed By: #### P E #### [address] [address] [employer]: Ramon Hussein MD Lymphocytes (Bld) [#/Vol] 1.00 10*3/uL Low 1.10-3.70 [facility] Comment on above: Performed By: #### P E #### [address] [address] [employer]: Ramon Hussein MD Lymphocytes/100 WBC (Bld) 11 % Low 24-43 [facility] Comment on above: Performed By: #### P E #### [address] [address] [employer]ic: Ramon Hussein MD MCH (RBC) [Entitic mass] 31.8 pg Normal 25.2-33.5 [facility] Comment on above: Performed By: #### P E #### [place] [address] [employer]: Ramon Hussein MD MCHC (RBC) [Mass/Vol] 31.4 g/dL Normal 28.4-34.8 [facility] Comment on above: Performed By: #### P E #### [place] [address] [employer]: Ramon Hussein MD MCV (RBC) [Entitic vol] 101.1 fL Normal 82.6-102.9 [facility] Comment on above: Performed By: #### P E #### [address] [address] [employer]ic: Ramon Hussein MD Monocytes (Bld) [#/Vol] 1.46 10*3/uL High 0.10-1.20 [facility] Comment on above: Performed By: #### P E #### [address] [address] [employer]ic: Ramon Hussein MD Monocytes/100 WBC (Bld) 16 % High 3-12 [facility] Comment on above: Performed By: #### P E #### [address] [address] [employer]ic: Ramon Hussein MD Neutrophil (Seg) 67 % High 36-65 [facility] Comment on above: Performed By: #### P E #### [address] [address] [employer]ic: Ramon Hussein MD NRBC Automated 0.0 per 100 WBC Normal 0.0 [facility] Comment on above: Performed By: #### P E #### [address] [address] [employer]ic: Ramon Hussein MD Platelet mean volume (Bld) [Entitic vol] 9.5 fL Normal 8.1-13.5 [facility] Comment on above: Performed By: #### P E #### [address] [address] [employer]ic: Ramon Hussein MD Platelets (Bld) [#/Vol] 255 10*3/uL Normal 138-453 [facility] Comment on above: Performed By: #### P E #### [address] [address] [employer]ic: Ramon Hussein MD RBC (Bld) [#/Vol] 3.65 10*6/uL Low 3.95-5.11 [facility] Comment on above: Performed By: #### P E #### [address] [address] [employer]ic: Ramon Hussein MD RBC morphology finding Nom (Bld) ANISOCYTOSIS PRESENT Normal [facility] Comment on above: Performed By: #### P E #### [address] [address] [employer]ic: Ramon Hussein MD WBC (Bld) [#/Vol] 8.9 10*3/uL Normal 3.5-11.3 [facility] Comment on above: Performed By: #### P E #### [address] [address] [employer]ic: Ramon Hussein MD Basic Metab w/rfx MGon 08-05 Anion gap [Moles/Vol] 12 mmol/L Normal 9-17 [facility] Comment on above: Performed By: #### C DP, BMPX #### [address] [address] [employer]ic: Ramon Hussein MD Calcium [Mass/Vol] 8.2 mg/dL Low 8.6-10.4 [facility] Comment on above: Performed By: #### C DP, BMPX #### [address] [address] [employer]ic: Ramon Hussein MD Chloride [Moles/Vol] 102 mmol/L Normal 98-107 [facility] Comment on above: Performed By: #### C DP, BMPX #### [facility] [address] [place] [address] [employer]ic: Ramon Hussein MD CO2 [Moles/Vol] 22 mmol/L Normal 20-31 [facility] Comment on above: Performed By: #### C DP, BMPX #### [facility] [address] [place] [address] [employer]ic: Ramon Hussein MD Creatinine [Mass/Vol] 1.7 mg/dL High 0.5-0.9 [facility] Comment on above: Performed By: #### C DP, BMPX #### [address] [address] [employer]ic: Ramon Hussein MD GFR/1.73 sq M.predicted among non-blacks MDRD (S/P/Bld) [Vol rate/Area] 31 mL/min/{1.73_m2} Low >60 [facility] Comment on above: Result Comment: These results [...] Performed By: #### C DP, BMPX #### [facility] [address] [place] [phone] [employer]ic: Ramon Hussein MD Glucose [Mass/Vol] 85 mg/dL Normal 70-99 [facility] Comment on above: Performed By: #### C DP, BMPX #### [facility] [address] [place] [address] [employer]ic: Ramon Hussein MD Potassium [Moles/Vol] 4.3 mmol/L Normal 3.7-5.3 [facility] Comment on above: Performed By: #### C DP, BMPX #### [facility] [address] [place] [address] [employer]ic: Ramon Hussein MD Sodium [Moles/Vol] 136 mmol/L Normal 135-144 [facility] Comment on above: Performed By: #### C DP, BMPX #### [facility] [address] [place] [address] [employer]ic: Ramon Hussein MD Urea nitrogen [Mass/Vol] 23 mg/dL Normal 8-23 [facility] Comment on above: Performed By: #### C DP, BMPX #### [facility] [address] [place] [address] [employer]ic: Ramon Hussein MD Basic Metabolic Panel w/ Ref kya to MGon 08-05-2023 Anion gap [Moles/Vol] 12 mmol/L 9 - 17 mmol/L [facility] Calcium [Mass/Vol] 8.2 mg/dL Low 8.6 - 10. 4 mg/dL [facility] Chloride [Moles/Vol] 102 mmol/L 98 - 107 mmol/L [facility] CO2 [Moles/Vol] 22 mmol/L 20 - 31 mmol/L [facility] Creatinine [Mass/Vol] 1.7 mg/dL High 0.5 - 0.9 mg/dL [facility] GFR/1.73 sq M.predicted MDRD (S/P/Bld) [Vol rate/Area] 31 mL/min/{1.73_m2} Low - PINF [facility] Comment on above: These results are not [...] [Mass/Vol] 85 mg/dL 70 - 99 mg/dL [facility] Interpretation and review of laboratory results Abnormal [facility] Potassium [Moles/Vol] 4.3 mmol/L 3.7 - 5.3 mmol/L [facility] Sodium [Moles/Vol] 136 mmol/L 135 - 144 mmol/L [facility] Urea nitrogen [Mass/Vol] 23 mg/dL 8 - 23 mg/dL [facility] CBC with Auto Differentialon 08-05-2023 Basophils (Bld) [#/Vol] 0.00 10*3/uL [facility] Basophils/100 WBC (Bld) 0 % 0 - 2 % [facility] Eosinophils (Bld) [#/Vol] 0.00 10*3/uL [facility] Eosinophils/100 WBC (Bld) 0 % Low 1 - 4 % [facility] Erythrocyte distribution width (RBC) [Ratio] 14.4 % 11.8 - 14.4 % [facility] Hematocrit (Bld) [Volume fraction] 35.5 % Low 36.3 - 47.1 % [facility] Hemoglobin (Bld) [Mass/Vol] 11.0 g/dL Low 11.9 - 15.1 g/dL [facility] Immature granulocytes (Bld) [#/Vol] 0.10 10*3/uL [facility] Immature granulocytes/100 WBC (Bld) 1 % High 0 [facility] Interpretation and review of laboratory results Abnormal [facility] Lymphocytes/100 WBC (Bld) 10 % Low 24 - 44 % [facility] Lymphocytes/100 WBC (Bld) 1.04 % [facility] MCH (RBC) [Entitic mass] 31.9 pg 25.2 - 33.5 pg [facility] MCHC (RBC) [Mass/Vol] 31.0 g/dL 28.4 - 34.8 g/dL [facility] MCV (RBC) [Entitic vol] 102.9 fL 82.6 - 102.9 fL [facility] Monocytes/100 WBC (Bld) 15 % High 1 - 7 % [facility] Monocytes/100 WBC (Bld) 1.56 % High [facility] Morphology Jose Cruz (Bld) [Interp] Normal [facility] Neutrophils/100 WBC (Bld) 74 % High 36 - 66 % [facility] Nucleated RBC/100 WBC (Bld) [Ratio] 0.0 % 0.0 per 100 WBC [facility] Platelet mean volume (Bld) [Entitic vol] 9.8 fL 8.1 - 13.5 fL [facility] Platelets (Bld) [#/Vol] 256 10*3/uL [facility] RBC (Bld) [#/Vol] 3.45 10*6/uL Low 3.95 - 5.1 1 m/uL [facility] Segmented neutrophils/100 WBC (Bld) 7.70 % [facility] WBC other (Bld) [#/Vol] 10.4 [facility] CBC with Diffon 08-05-2023 Abs. Basophil 0.00 k/uL Normal 0.0-0.2 [facility] Comment on above: Performed By: #### C DP, BMPX #### [facility] [address] [place] [address] [employer]ic: Ramon Hussein MD Abs.Imm.Granulocyt e 0.10 k/uL Normal 0.00-0.30 [facility] Comment on above: Performed By: #### C DP, BMPX #### [facility] [address] [place] [address] [employer]ic: Ramon Hussein MD Abs.Neutrophil (Seg) 7.70 k/uL Normal 1.8-7.7 [facility] Comment on above: Performed By: #### C DP, BMPX #### [facility] [address] [place] [address] [employer]ic: Ramon Hussein MD Basophils/100 WBC (Bld) 0 % Normal 0-2 [facility] Comment on above: Performed By: #### C DP, BMPX #### [facility] [address] [place] [address] [employer]ic: Ramon Hussein MD Eosinophils (Bld) [#/Vol] 0.00 10*3/uL Normal 0.0-0.4 [facility] Comment on above: Performed By: #### C DP, BMPX #### [facility] [address] [place] [address] [employer]ic: Ramon Hussein MD Eosinophils/100 WBC (Bld) 0 % Low 1-4 [facility] Comment on above: Performed By: #### C DP, BMPX #### [address] [address] [employer]ic: Ramon Hussein MD Immature granulocytes/100 WBC (Bld) 1 % High 0 [facility] Comment on above: Performed By: #### C DP, BMPX #### [address] [address] [employer]ic: Ramon Hussein MD Lymphocytes (Bld) [#/Vol] 1.04 10*3/uL Normal 1.0-4.8 [facility] Comment on above: Performed By: #### C DP, BMPX #### [address] [address] [employer]ic: Ramon Hussein MD Lymphocytes/100 WBC (Bld) 10 % Low 24-44 [facility] Comment on above: Performed By: #### C DP, BMPX #### [address] [address] [employer]ic: Ramon Hussein MD Monocytes (Bld) [#/Vol] 1.56 10*3/uL High 0.1-0.8 [facility] Comment on above: Performed By: #### C DP, BMPX #### [address] [address] [employer]ic: Ramon Hussein MD Monocytes/100 WBC (Bld) 15 % High 1-7 [facility] Comment on above: Performed By: #### C DP, BMPX #### [address] [address] [employer]ic: Ramon Hussein MD Morphology Jose Cruz (Bld) [Interp] Normal Normal [facility] Comment on above: Performed By: #### C DP, BMPX #### [address] [address] [employer]ic: Ramon Hussein MD Neutrophil (Seg) 74 % High 36-66 [facility] Comment on above: Performed By: #### C DP, BMPX #### [address] [address] [employer]ic: Ramon Hussein MD Erythrocyte distribution width (RBC) [Ratio] 14.4 % Normal 11.8-14.4 [facility] Comment on above: Performed By: #### C DP, BMPX #### [address] [address] [employer]ic: Ramon Hussein MD Hematocrit (Bld) [Volume fraction] 35.5 % Low 36.3-47.1 [facility] Comment on above: Performed By: #### C DP, BMPX #### [address] [address] [employer]ic: Ramon Hussein MD Hemoglobin (Bld) [Mass/Vol] 11.0 g/dL Low 11.9-15.1 [facility] Comment on above: Performed By: #### C DP, BMPX #### [address] [address] [employer]ic: Ramon Hussein MD MCH (RBC) [Entitic mass] 31.9 pg Normal 25.2-33.5 [facility] Comment on above: Performed By: #### C DP, BMPX #### [facility] [address] [place] [address] [employer]ic: Ramon Hussein MD MCHC (RBC) [Mass/Vol] 31.0 g/dL Normal 28.4-34.8 [facility] Comment on above: Performed By: #### C DP, BMPX #### [facility] [address] [place] [address] [employer]ic: Ramon Hussein MD MCV (RBC) [Entitic vol] 102.9 fL Normal 82.6-102.9 [facility] Comment on above: Performed By: #### C DP, BMPX #### [address] [address] [employer]ic: Ramon Hussein MD NRBC Automated 0.0 per 100 WBC Normal 0.0 [facility] Comment on above: Performed By: #### C DP, BMPX #### [address] [address] [employer]ic: Ramon Hussein MD Platelet mean volume (Bld) [Entitic vol] 9.8 fL Normal 8.1-13.5 [facility] Comment on above: Performed By: #### C DP, BMPX #### [address] [address] [employer]ic: Ramon Hussein MD Platelets (Bld) [#/Vol] 256 10*3/uL Normal 138-453 [facility] Comment on above: Performed By: #### C DP, BMPX #### [address] [address] [employer] Mechanic: Ramon Hussein MD RBC (Bld) [#/Vol] 3.45 10*6/uL Low 3.95-5.11 [facility] Comment on above: Performed By: #### C DP, BMPX #### [address] [address] [employer] Mechanic: Ramon Hussein MD WBC (Bld) [#/Vol] 10.4 10*3/uL Normal 3.5-11.3 [facility] Comment on above: Performed By: #### C DP, BMPX #### [address] [address] [employer]ic: Ramon Hussein MD MR Brain WO and [...] Small cavernomas are a less likely consideration. [facility] EXAMINATION: MRI OF THE BRAIN WITHOUT [...] The soft tissues demonstrate no acute abnormality. [facility] Nathanael Farrar MD - 08/05/2023 EXAMINATION: MRI [...] Small cavernomas are a less likely consideration. [facility] Radiology Study observation (narrative) [facility] MR Brain WO and W contrast I VOrdered By: Nathanael Farrar on 08-05-2023 [facility] Work Phone: MRI BRAIN W WO [...] Nathanael Farrar MD 08/05/23 Final result Normal [facility] Valproic Acid Level, Total a nd Freeon 08-05-2023 Interpretation and review of laboratory results Abnormal [facility] Valproate [Mass/Vol] 15 ug/mL Low 50 - 125 ug/mL [facility] Valproate Free [Mass/Vol] 2.0 ug/mL Low 7.0 - 23.0 ug/mL [facility] Valproate Free/Total valproate [Mass fraction] 13.3 % 5.0 - 18.4 % [facility] Valproic Acid,Fr+Toton 08-05 Valproic Acid, %Free 13.3 % Normal 5.0-18.4 [facility] Comment on above: Performed By: #### C QUOC PEACE #### [facility] [address] [place] [address] [employer] Mechanic: Ramon Hussein MD Valproic Acid, Free 2.0 ug/mL Low 7.0-23.0 [facility] Comment on above: Performed By: #### C QUOC PEACE #### [facility] [address] [place] [phone] [employer] Mechanic: Ramon Hussein MD Valproic Acid 15 ug/mL Low 50-125 [facility] Comment on above: Performed By: #### C DP, BMP #### [facility] [address] [place] [address] [employer]ic: Ramon Hussein MD Basic Metab w/rfx MGon 08-04 Anion gap [Moles/Vol] 11 mmol/L Normal 9-17 [facility] Comment on above: Performed By: #### C DP, BMP #### [facility] [address] [place] [address] [employer]ic: Ramon Hussein MD Calcium [Mass/Vol] 8.4 mg/dL Low 8.6-10.4 [facility] Comment on above: Performed By: #### C DP, BMP #### [facility] [address] [place] [address] [employer]ic: Ramon Hussein MD Chloride [Moles/Vol] 103 mmol/L Normal 98-107 [facility] Comment on above: Performed By: #### C DP, BMP #### [facility] [address] [place] [address] [employer] Mechanic: Ramon Hussein MD CO2 [Moles/Vol] 24 mmol/L Normal 20-31 [facility] Comment on above: Performed By: #### C DP, BMP #### [facility] [address] [place] [address] [employer] Mechanic: Ramon Hussein MD Creatinine [Mass/Vol] 1.6 mg/dL High 0.5-0.9 [facility] Comment on above: Performed By: #### C DP, BMP #### [facility] [address] [place] [address] [employer] Mechanic: Ramon Hussein MD GFR/1.73 sq M.predicted among non-blacks MDRD (S/P/Bld) [Vol rate/Area] 34 mL/min/{1.73_m2} Low >60 [facility] Comment on above: Result Comment: These results [...] Performed By: #### C DP, BMP #### [facility] [address] [place] [address] [employer]ic: Ramon Hussein MD Glucose [Mass/Vol] 94 mg/dL Normal 70-99 [facility] Comment on above: Performed By: #### C DP, BMP #### [facility] [address] [place] [address] [employer] Mechanic: Ramon Hussein MD Potassium [Moles/Vol] 4.0 mmol/L Normal 3.7-5.3 [facility] Comment on above: Performed By: #### C DP, BMP #### [facility] [address] [place] [address] [employer] Mechanic: Ramon Hussein MD Sodium [Moles/Vol] 138 mmol/L Normal 135-144 [facility] Comment on above: Performed By: #### C DP, BMP #### [facility] [address] [place] [address] [employer] Mechanic: Ramon Hussein MD Urea nitrogen [Mass/Vol] 23 mg/dL Normal 8-23 [facility] Comment on above: Performed By: #### C DP, BMP #### [facility] [address] [place] [address] [employer]: Ramon Hussein MD Basic Metabolic Panel w/ Ref kya to MGon 08-04-2023 Anion gap [Moles/Vol] 11 mmol/L 9 - 17 mmol/L [facility] Calcium [Mass/Vol] 8.4 mg/dL Low 8.6 - 10. 4 mg/dL [facility] Chloride [Moles/Vol] 103 mmol/L 98 - 107 mmol/L [facility] CO2 [Moles/Vol] 24 mmol/L 20 - 31 mmol/L [facility] Creatinine [Mass/Vol] 1.6 mg/dL High 0.5 - 0.9 mg/dL [facility] GFR/1.73 sq M.predicted MDRD (S/P/Bld) [Vol rate/Area] 34 mL/min/{1.73_m2} Low - PINF [facility] Comment on above: These results are [...] [Mass/Vol] 94 mg/dL 70 - 99 mg/dL [facility] Interpretation and review of laboratory results Abnormal [facility] Potassium [Moles/Vol] 4.0 mmol/L 3.7 - 5.3 mmol/L [facility] Sodium [Moles/Vol] 138 mmol/L 135 - 144 mmol/L [facility] Urea nitrogen [Mass/Vol] 23 mg/dL 8 - 23 mg/dL [facility] CBC with Auto Differentialon 08-04-2023 Basophils (Bld) [#/Vol] 0.00 10*3/uL [facility] Basophils/100 WBC (Bld) 0 % 0 - 2 % [facility] Eosinophils (Bld) [#/Vol] 0.00 10*3/uL [facility] Eosinophils/100 WBC (Bld) 0 % Low 1 - 4 % [facility] Erythrocyte distribution width (RBC) [Ratio] 14.6 % High 11.8 - 14.4 % [facility] Hematocrit (Bld) [Volume fraction] 36.2 % Low 36.3 - 47.1 % [facility] Hemoglobin (Bld) [Mass/Vol] 11.3 g/dL Low 11.9 - 15.1 g/dL [facility] Immature granulocytes (Bld) [#/Vol] 0.00 10*3/uL [facility] Immature granulocytes/100 WBC (Bld) 0 % 0 [facility] Interpretation and review of laboratory results Abnormal [facility] Lymphocytes/100 WBC (Bld) 13 % Low 24 - 44 % [facility] Lymphocytes/100 WBC (Bld) 1.42 % [facility] MCH (RBC) [Entitic mass] 32.2 pg 25.2 - 33.5 pg [facility] MCHC (RBC) [Mass/Vol] 31.2 g/dL 28.4 - 34.8 g/dL [facility] MCV (RBC) [Entitic vol] 103.1 fL High 82.6 - 102.9 fL [facility] Monocytes/100 WBC (Bld) 13 % High 1 - 7 % [facility] Monocytes/100 WBC (Bld) 1.42 % High [facility] Morphology Jose Cruz (Bld) [Interp] ANISOCYTOSIS PRESENT [facility] Morphology Jose Cruz (Bld) [Interp] MACROCYTOSIS PRESENT [facility] Neutrophils/100 WBC (Bld) 74 % High 36 - 66 % [facility] Nucleated RBC/100 WBC (Bld) [Ratio] 0.0 % 0.0 per 100 WBC [facility] Platelet mean volume (Bld) [Entitic vol] 9.6 fL 8.1 - 13.5 fL [facility] Platelets (Bld) [#/Vol] 267 10*3/uL [facility] RBC (Bld) [#/Vol] 3.51 10*6/uL Low 3.95 - 5.1 1 m/uL [facility] Segmented neutrophils/100 WBC (Bld) 8.06 % High [facility] WBC other (Bld) [#/Vol] 10.9 [facility] CBC with Diffon 08-04-2023 Abs. Basophil 0.00 k/uL Normal 0.0-0.2 [facility] Comment on above: Performed By: #### C DP, BMP #### [facility] [address] [place] [phone] [employer] Mechanic: Ramon Hussein MD Abs.Imm.Granulocyt e 0.00 k/uL Normal 0.00-0.30 [facility] Comment on above: Performed By: #### C DP, BMP #### [facility] [address] [place] [phone] [employer] Mechanic: Ramon Hussein MD Abs.Neutrophil (Seg) 8.06 k/uL High 1.8-7.7 [facility] Comment on above: Performed By: #### C DP, BMP #### [facility] [address] [place] [phone] [employer] Mechanic: Ramon Hussein MD Basophils/100 WBC (Bld) 0 % Normal 0-2 [facility] Comment on above: Performed By: #### C DP, BMP #### [facility] [address] [place] [phone] [employer] Mechanic: Ramon Hussein MD Eosinophils (Bld) [#/Vol] 0.00 10*3/uL Normal 0.0-0.4 [facility] Comment on above: Performed By: #### C DP, BMP #### [facility] [address] [place] [address] [employer] Mechanic: Ramon Hussein MD Eosinophils/100 WBC (Bld) 0 % Low 1-4 [facility] Comment on above: Performed By: #### C DP, BMP #### [facility] [address] [place] [address] [employer] Mechanic: Ramon Hussein MD Immature granulocytes/100 WBC (Bld) 0 % Normal 0 [facility] Comment on above: Performed By: #### C DP, BMP #### [address] [address] [employer] Mechanic: Ramon Hussein MD Lymphocytes (Bld) [#/Vol] 1.42 10*3/uL Normal 1.0-4.8 [facility] Comment on above: Performed By: #### C DP, BMP #### [address] [address] [employer] Mechanic: Ramon Hussein MD Lymphocytes/100 WBC (Bld) 13 % Low 24-44 [facility] Comment on above: Performed By: #### C DP, BMP #### [address] [address] [employer] Mechanic: Ramon Hussein MD Monocytes (Bld) [#/Vol] 1.42 10*3/uL High 0.1-0.8 [facility] Comment on above: Performed By: #### C DP, BMP #### [address] [address] [employer] Mechanic: Ramon Hussein MD Monocytes/100 WBC (Bld) 13 % High 1-7 [facility] Comment on above: Performed By: #### C DP, BMP #### [address] [address] [employer] Mechanic: Ramon Hussein MD Morphology Jose Cruz (Bld) [Interp] ANISOCYTOSIS PRESENT Normal [facility] Comment on above: Result Comment: MACR OCYTOSIS PRESENT Performed By: #### C DP, BMP #### [facility] [address] [place] [phone] [employer]: Ramon Hussein MD Neutrophil (Seg) 74 % High 36-66 [facility] Comment on above: Performed By: #### C DP, BMP #### [address] [address] [employer] Mechanic: Ramon Hussein MD Erythrocyte distribution width (RBC) [Ratio] 14.6 % High 11.8-14.4 [facility] Comment on above: Performed By: #### C DP, BMP #### [address] [address] [employer] Mechanic: Ramon Hussein MD Hematocrit (Bld) [Volume fraction] 36.2 % Low 36.3-47.1 [facility] Comment on above: Performed By: #### C DP, BMP #### [address] [address] [employer] Mechanic: Ramon Hussein MD Hemoglobin (Bld) [Mass/Vol] 11.3 g/dL Low 11.9-15.1 [facility] Comment on above: Performed By: #### C DP, BMP #### [address] [address] [employer] Mechanic: aRmon Hussein MD MCH (RBC) [Entitic mass] 32.2 pg Normal 25.2-33.5 [facility] Comment on above: Performed By: #### C DP, BMP #### [address] [address] [employer] Mechanic: Ramon Hussein MD MCHC (RBC) [Mass/Vol] 31.2 g/dL Normal 28.4-34.8 [facility] Comment on above: Performed By: #### C DP, BMP #### [address] [address] [employer] Mechanic: Ramon Hussein MD MCV (RBC) [Entitic vol] 103.1 fL High 82.6-102.9 [facility] Comment on above: Performed By: #### C DP, BMP #### [address] [address] [employer] Mechanic: Ramon Hussein MD NRBC Automated 0.0 per 100 WBC Normal 0.0 [facility] Comment on above: Performed By: #### C DP, BMP #### [address] [address] [employer] Mechanic: Ramon Hussein MD Platelet mean volume (Bld) [Entitic vol] 9.6 fL Normal 8.1-13.5 [facility] Comment on above: Performed By: #### C DP, BMP #### [address] [address] [employer] Mechanic: Ramon Hussein MD Platelets (Bld) [#/Vol] 267 10*3/uL Normal 138-453 [facility] Comment on above: Performed By: #### C DP, BMP #### [address] [address] [employer] Mechanic: Ramon Hussein MD RBC (Bld) [#/Vol] 3.51 10*6/uL Low 3.95-5.11 [facility] Comment on above: Performed By: #### C DP, BMP #### [address] [address] [employer] Mechanic: Ramon Hussein MD WBC (Bld) [#/Vol] 10.9 10*3/uL Normal 3.5-11.3 [facility] Comment on above: Performed By: #### C DP, BMP #### [address] [address] [employer] Mechanic: Ramon Hussein MD COVID-19, Rapidon 08-04-2023 SARS-CoV-2 (COVID-19) RdRp gene ESTELA+probe Ql (Resp) Not detected Not Detected [facility] Comment on above: Rapid NAAT: The [...] management decisions. Fact sheet for Healthcare Providers: https://www.fda.gov/media/666127/download Fact sheet for Patients: https://www.fda.gov/media/881547/download Methodology: Isothermal Nucleic Acid Amplification Specimen Description .NASOPHARYNGEAL SWAB [facility] EEGon 08-04-2023 Carlo Lee MD 08/04/2023 2:55 [...] tablet 6.25 mg 6.25 mg Oral BID WC Patricia Padilla MD 6.25 mg at 08/04/23 [...] abnormalities were seen. CARLO LEE MD Diplomate, [place] [employer] Psychiatry and Neurology Diplomate, [place] Board of Clinical Neurophysiology Diplomate, [place] Board of Epilepsy [facility] EEGOrdered By: Carlo Lee on 08-04-2023 [facility] Work Phone: Keppraon 08-04-2023 KEPP 23 ug/mL Normal [facility] Comment on above: Result Comment: A reference [...] not known. Performed By: #### C , [facility] #### [employer] [address] [place] [phone] [employer] Mechanic: Ramon Hussein MD Levetiracetam Levelon 2022 levETIRAcetam [Mass/Vol] 23 ug/mL [facility] Comment on above: A reference range [...] serum concentrations and toxicity is not known. [facility] NM LUNG VENT/PERFUSION (VQ)o n 08-04-2023 NM LUNG [...] Kulwinder Kim MD 08/04/23 Final result Normal [facility] NM Lung Ventilation and Perf usionon 08-04-2023 Very low probability for pulmonary embolism. [facility] RIS CONSOLIDATED EXAMINATION: NUCLEAR MEDICINE VENTILATION PERFUSION [...] or significant effusions on recent chest radiograph. [facility] RIS CONSOLIDATED Kulwinder Kim MD - 08/04/2023 EXAMINATION: NUCLEAR MEDICINE VENTILATION [...] IMPRESSION: Very low probability for pulmonary embolism. [facility] Radiology Study observation (narrative) [facility] NM Lung Ventilation and Perf usionOrdered By: Kulwinder Kim on 08-04-2023 [facility] Work Phone: PREVIOUS SPECIMENon 08-04-20 [facility] [id number] 08-04-2023 SARS-CoV-2 (COVID-19) RNA ESTELA+probe Ql (Unsp spec) Not detected Normal [facility] Comment on above: Result Comment: Rapid NAAT: [...] management decisions. Fact sheet for Healthcare Providers: https://www.fda.gov/media/287845/download Fact sheet for Patients: https://www.fda.gov/media/403136/download Methodology: Isothermal Nucleic Acid Amplification Performed By: #### C OVRB #### [address] [address] [employer] Mechanic: Ramon Hussein MD Specimen Rejectionon 023 Reason for rejection Unable to perform testing: Specimen quantity not sufficient. Normal [facility] Comment on above: Performed By: #### C DP, BMP #### [facility] [address] [place] [address] [employer] Mechanic: Ramon Hussein MD Source of sample .BLOOD [facility] Comment on above: Performed By: #### C DP, BMP #### [facility] [address] [place] [phone] [employer] Mechanic: Ramon Hussein MD Test ordered VALPFT [facility] Comment on above: Performed By: #### C DP, BMP #### [facility] [address] [place] [phone] [employer] Mechanic: Ramon Hussein MD Valproic Acid Level, Total a nd Freeon 08-04-2023 Interpretation and review of laboratory results Abnormal zumatek [facility] Valproate [Mass/Vol] 41 ug/mL Low 50 - 125 ug/mL [facility] Valproate Free [Mass/Vol] 11.6 ug/mL 7.0 - 23.0 ug/mL [facility] Valproate Free/Total valproate [Mass fraction] 28.3 % High 5.0 - 18.4 % [facility] Valproic Acid,Fr+Toton 08-04 Valproic Acid 41 ug/mL Low 50-125 [facility] Comment on above: Performed By: #### P E #### [facility] [address] [place] [phone] [employer] Mechanic: Ramon Hussein MD Valproic Acid, %Free 28.3 % High 5.0-18.4 [facility] Comment on above: Performed By: #### P E #### [facility] [address] [place], [place] [phone] [employer] Mechanic: Ramon Hussein MD Valproic Acid, Free 11.6 ug/mL Normal 7.0-23.0 [facility] Comment on above: Performed By: #### P E #### [facility] [place] [address] [employer] Mechanic: Ramon Hussein MD Brain Natri. Peptideon 08-03 Natriuretic peptide B (Bld) [Mass/Vol] 2414 pg/mL High <300 [facility] Comment on above: Result Comment: An age-independent cutoff point of 300 pg/ml has a 98% negative predictive value excluding acute heart failure. Performed By: #### C DP, BMPX #### [facility] [address] [place], [place] [phone] [employer] Mechanic: Ramon Hussein MD Brain Natriuretic Peptideon 08-03-2023 Natriuretic peptide B (Bld) [Mass/Vol] 2414 pg/mL High NINF - 300 pg/mL [facility] [employer] Comment on above: An age-independent cutoff point of 300 pg/ml has a 98% negative predictive value excluding acute heart failure. CBC with Auto Differentialon 08-03-2023 Basophils (Bld) [#/Vol] 0.00 10*3/uL [employer] [facility] Basophils/100 WBC (Bld) 0 % 0 - 2 % [facility] [employer] Eosinophils (Bld) [#/Vol] 0.00 10*3/uL [facility] [employer] Eosinophils/100 WBC (Bld) 0 % Low 1 - 4 % [facility] [employer] [facility] Erythrocyte distribution width (RBC) [Ratio] 14.5 % High 11.8 - 14.4 % [facility] [employer] Hematocrit (Bld) [Volume fraction] 39.3 % 36.3 - 47.1 % [facility] Hemoglobin (Bld) [Mass/Vol] 12.1 g/dL 11.9 - 15.1 g/dL [facility] Immature granulocytes (Bld) [#/Vol] 0.00 10*3/uL [facility] Immature granulocytes/100 WBC (Bld) 0 % 0 [facility] Interpretation and review of laboratory results Abnormal [facility] Lymphocytes/100 WBC (Bld) 9 % Low 24 - 44 % [facility] Lymphocytes/100 WBC (Bld) 1.48 % [facility] MCH (RBC) [Entitic mass] 31.8 pg 25.2 - 33.5 pg [facility] MCHC (RBC) [Mass/Vol] 30.8 g/dL 28.4 - 34.8 g/dL [facility] MCV (RBC) [Entitic vol] 103.4 fL High 82.6 - 102.9 fL [facility] Monocytes/100 WBC (Bld) 12 % High 1 - 7 % [facility] Monocytes/100 WBC (Bld) 1.97 % High [facility] Morphology Jose Cruz (Bld) [Interp] ANISOCYTOSIS PRESENT [facility] Morphology Jose Cruz (Bld) [Interp] MACROCYTOSIS PRESENT [facility] Neutrophils/100 WBC (Bld) 79 % High 36 - 66 % [facility] Nucleated RBC/100 WBC (Bld) [Ratio] 0.0 % 0.0 per 100 WBC [facility] Platelet mean volume (Bld) [Entitic vol] 9.5 fL 8.1 - 13.5 fL [facility] Platelets (Bld) [#/Vol] 290 10*3/uL [facility] RBC (Bld) [#/Vol] 3.80 10*6/uL Low 3.95 - 5.1 1 m/uL [facility] Segmented neutrophils/100 WBC (Bld) 12.95 % High [facility] WBC other (Bld) [#/Vol] 16.4 High [facility] CBC with Diffon 08-03-2023 Abs. Basophil 0.00 k/uL Normal 0.0-0.2 [facility] Comment on above: Performed By: #### B CERTIFIED MAINTENANCE WELDER, CDP, CP, TROPI, LACTIC, DIME #### [address] [address] [employer] Mechanic: Ramon Hussein MD Abs.Imm.Granulocyt e 0.00 k/uL Normal 0.00-0.30 [facility] Comment on above: Performed By: #### B CERTIFIED MAINTENANCE WELDER, CDP, CP, TROPI, LACTIC, DIME #### [address] [address] [employer] Mechanic: Ramon Hussein MD Abs.Neutrophil (Seg) 12.95 k/uL High 1.8-7.7 [facility] Comment on above: Performed By: #### B CERTIFIED MAINTENANCE WELDER, CDP, CP, TROPI, LACTIC, DIME #### [address] [address] [employer] Mechanic: Ramon Hussein MD Basophils/100 WBC (Bld) 0 % Normal 0-2 [facility] Comment on above: Performed By: #### B CERTIFIED MAINTENANCE WELDER, CDP, CP, TROPI, LACTIC, DIME #### [address] [address] [employer] Mechanic: Ramon Hussein MD Eosinophils (Bld) [#/Vol] 0.00 10*3/uL Normal 0.0-0.4 [facility] Comment on above: Performed By: #### B CERTIFIED MAINTENANCE WELDER, CDP, CP, TROPI, LACTIC, DIME #### [address] [address] [employer] Mechanic: Ramon Hussein MD Eosinophils/100 WBC (Bld) 0 % Low 1-4 [facility] Comment on above: Performed By: #### B CERTIFIED MAINTENANCE WELDER, CDP, CP, TROPI, LACTIC, DIME #### [facility] [address] [place] [phone] [employer] Mechanic: Ramon Hussein MD Immature granulocytes/100 WBC (Bld) 0 % Normal 0 [facility] Comment on above: Performed By: #### B CERTIFIED MAINTENANCE WELDER, CDP, CP, TROPI, LACTIC, DIME #### [address] [address] [employer] Mechanic: Ramon Hussein MD Lymphocytes (Bld) [#/Vol] 1.48 10*3/uL Normal 1.0-4.8 [facility] Comment on above: Performed By: #### B CERTIFIED MAINTENANCE WELDER, CDP, CP, TROPI, LACTIC, DIME #### [address] [address] [employer] Mechanic: Ramon Hussein MD Lymphocytes/100 WBC (Bld) 9 % Low 24-44 [facility] Comment on above: Performed By: #### B CERTIFIED MAINTENANCE WELDER, CDP, CP, TROPI, LACTIC, DIME #### [address] [address] [employer] Mechanic: Ramon Hussein MD Monocytes (Bld) [#/Vol] 1.97 10*3/uL High 0.1-0.8 [facility] Comment on above: Performed By: #### B CERTIFIED MAINTENANCE WELDER, CDP, CP, TROPI, LACTIC, DIME #### [address] [address] [employer] Mechanic: Ramon Hussein MD Monocytes/100 WBC (Bld) 12 % High 1-7 [facility] Comment on above: Performed By: #### B CERTIFIED MAINTENANCE WELDER, CDP, CP, TROPI, LACTIC, DIME #### [address] [address] [employer] Mechanic: Ramon Hussein MD Morphology Jose Cruz (Bld) [Interp] ANISOCYTOSIS PRESENT Normal [facility] Comment on above: Result Comment: MACR OCYTOSIS PRESENT Performed By: #### B CERTIFIED MAINTENANCE WELDER, CDP, CP, TROPI, LACTIC, DIME #### [address] [address] [employer] Mechanic: Ramon Hussein MD Neutrophil (Seg) 79 % High 36-66 [facility] Comment on above: Performed By: #### B CERTIFIED MAINTENANCE WELDER, CDP, CP, TROPI, LACTIC, DIME #### [address] [address] [employer] Mechanic: Ramon Hussein MD Erythrocyte distribution width (RBC) [Ratio] 14.5 % High 11.8-14.4 [facility] Comment on above: Performed By: #### B CERTIFIED MAINTENANCE WELDER, CDP, CP, TROPI, LACTIC, DIME #### [address] [address] [employer] Mechanic: Ramon Hussein MD Hematocrit (Bld) [Volume fraction] 39.3 % Normal 36.3-47.1 [facility] Comment on above: Performed By: #### B CERTIFIED MAINTENANCE WELDER, CDP, CP, TROPI, LACTIC, DIME #### [address] [address] [employer] Mechanic: Ramon Hussein MD Hemoglobin (Bld) [Mass/Vol] 12.1 g/dL Normal 11.9-15.1 [facility] Comment on above: Performed By: #### B CERTIFIED MAINTENANCE WELDER, CDP, CP, TROPI, LACTIC, DIME #### [address] [address] [employer] Mechanic: Ramon Hussein MD MCH (RBC) [Entitic mass] 31.8 pg Normal 25.2-33.5 [facility] Comment on above: Performed By: #### B CERTIFIED MAINTENANCE WELDER, CDP, CP, TROPI, LACTIC, DIME #### [address] [address] [employer] Mechanic: Ramon Hussein MD MCHC (RBC) [Mass/Vol] 30.8 g/dL Normal 28.4-34.8 [facility] Comment on above: Performed By: #### B CERTIFIED MAINTENANCE WELDER, CDP, CP, TROPI, LACTIC, DIME #### [address] [address] [employer] Mechanic: Ramon Hussein MD MCV (RBC) [Entitic vol] 103.4 fL High 82.6-102.9 [facility] Comment on above: Performed By: #### B CERTIFIED MAINTENANCE WELDER, CDP, CP, TROPI, LACTIC, DIME #### [address] [address] [employer] Mechanic: Ramon Hussein MD NRBC Automated 0.0 per 100 WBC Normal 0.0 [facility] Comment on above: Performed By: #### B CERTIFIED MAINTENANCE WELDER, CDP, CP, TROPI, LACTIC, DIME #### [address] [address] [employer] Mechanic: Ramon Hussein MD Platelet mean volume (Bld) [Entitic vol] 9.5 fL Normal 8.1-13.5 [facility] Comment on above: Performed By: #### B CERTIFIED MAINTENANCE WELDER, CDP, CP, TROPI, LACTIC, DIME #### [address] [address] [employer] Mechanic: Ramon Hussein MD Platelets (Bld) [#/Vol] 290 10*3/uL Normal 138-453 [facility] Comment on above: Performed By: #### B CERTIFIED MAINTENANCE WELDER, CDP, CP, TROPI, LACTIC, DIME #### [address] [address] [employer] Mechanic: Ramon Hussein MD RBC (Bld) [#/Vol] 3.80 10*6/uL Low 3.95-5.11 [facility] Comment on above: Performed By: #### B CERTIFIED MAINTENANCE WELDER, CDP, CP, TROPI, LACTIC, DIME #### [address] [address] [place], [place] [phone] [employer] Mechanic: Ramon Hussein MD WBC (Bld) [#/Vol] 16.4 10*3/uL High 3.5-11.3 [facility] Comment on above: Performed By: #### B CERTIFIED MAINTENANCE WELDER, CDP, CP, TROPI, LACTIC, DIME #### [employer] [address] [place], [place] [phone] [employer] Mechanic: Ramon Hussein MD [facility] Albumin [Mass/Vol] 3.0 g/dL Low 3.5 - 5.2 g/dL [facility] Albumin/Globulin [Mass ratio] 0.7 {ratio} Low 1.0 - 2.5 [facility] ALP [Catalytic activity/Vol] 69 U/L 35 - 104 U/L [facility] Comment on above: SPECIMEN SLIGHTLY HE MOLYZED, RESULTS MAY BE ADVERSELY AFFECTED. ALT [Catalytic activity/Vol] 11 U/L 5 - 33 U/L [facility] Comment on above: SPECIMEN SLIGHTLY HE MOLYZED, RESULTS MAY BE ADVERSELY AFFECTED. Anion gap [Moles/Vol] 13 mmol/L 9 - 17 mmol/L [facility] [employer] AST [Catalytic activity/Vol] 17 U/L NINF - 32 U/L [facility] Comment on above: SPECIMEN SLIGHTLY HE MOLYZED, RESULTS MAY BE ADVERSELY AFFECTED. Bilirubin [Mass/Vol] 0.3 mg/dL 0.3 - 1.2 mg/dL [facility] [employer] Calcium [Mass/Vol] 8.7 mg/dL 8.6 - 10. 4 mg/dL [facility] [employer] [facility] Chloride [Moles/Vol] 102 mmol/L 98 - 107 mmol/L [facility] [employer] CO2 [Moles/Vol] 24 mmol/L 20 - 31 mmol/L [facility] [employer] [facility] Creatinine [Mass/Vol] 1.8 mg/dL High 0.5 - 0.9 mg/dL [facility] [employer] GFR/1.73 sq M.predicted MDRD (S/P/Bld) [Vol rate/Area] 29 mL/min/{1.73_m2} Low - PINF [facility] [employer] Comment on above: These results are not [...] [Mass/Vol] 95 mg/dL 70 - 99 mg/dL [facility] [employer] Interpretation and review of laboratory results Abnormal [facility] [employer] Potassium [Moles/Vol] 4.3 mmol/L 3.7 - 5.3 mmol/L [facility] Comment on above: SPECIMEN SLIGHTLY HE MOLYZED, RESULTS MAY BE ADVERSELY AFFECTED. Protein [Mass/Vol] 7.1 g/dL 6.4 - 8.3 g/dL [facility] [employer] Sodium [Moles/Vol] 139 mmol/L 135 - 144 mmol/L [facility] Urea nitrogen [Mass/Vol] 26 mg/dL High 8 - 23 mg/dL [facility] [employer] CT CERVICAL SPINE WO CONTRAS Ton 08-03-2023 [...] Ann Washburn MD 08/03/23 Final result Normal [facility] CT Cervical spine WO adina ton 08-03-2023 No acute cervical sp ine fracture or traumatic subluxation. [facility] CONSOLIDATED EXAMINATION: CT OF THE CERVICAL SPINE [...] thyroidectomy changes with surgical clips in place. [facility] Lee Ann Washburn MD - 08/03/2023 [...] acute cervical spine fracture or traumatic subluxation. [facility] CT Cervical spine WO contras tOrdered By: Lee Ann Washburn on 08-03-2023 [facility] Work Phone: CT HEAD WO CONTRASTon [...] Shemar Thomas MD 08/03/23 Final result Normal [facility] CT Head WO contraston 2022 No acute intracrania l abnormality. Stable left frontal encephalomalacia. [facility] RIS CONSOLIDATED EXAMINATION: CT OF THE HEAD WITHOUT [...] of the visualized skull or soft tissues. [facility] Shemar Vizcaino MD - 08/03/2023 EXAMINATION: CT OF THE [...] acute intracranial abnormality. Stable left frontal encephalomalacia. [facility] CT Head WO contrastOrdered B y: Shemar Thomas on 08-03-2023 [facility] [employer] Work Phone: Comp Metabolic Profon 2022 Albumin [Mass/Vol] 3.0 g/dL Low 3.5-5.2 [facility] Comment on above: Performed By: #### C DP, BMPX #### [address] [address] [employer] Mechanic: Ramon Hussein MD Albumin/Glob Ratio 0.7 Low 1.0-2.5 [facility] Comment on above: Performed By: #### C DP, BMPX #### [facility] [address] [place] [phone] [employer] Mechanic: Ramon Hussein MD Alkaline Phos 69 U/L Normal 35-104 [facility] Comment on above: Result Comment: SPEC IMEN SLIGHTLY HEMOLYZED, RESULTS MAY BE ADVERSELY AFFECTED. Performed By: #### C DP, BMPX #### [facility] [address] [place] [phone] [employer] Mechanic: Ramon Hussein MD ALT [Catalytic activity/Vol] 11 U/L Normal 5-33 [facility] Comment on above: Result Comment: SPEC IMEN SLIGHTLY HEMOLYZED, RESULTS MAY BE ADVERSELY AFFECTED. Performed By: #### C DP, BMPX #### [address] [address] [employer] Mechanic: Ramon Hussein MD Anion gap [Moles/Vol] 13 mmol/L Normal 9-17 [facility] Comment on above: Performed By: #### C DP, BMPX #### [facility] [address] [place] [phone] [employer] Mechanic: Ramon Hussein MD AST [Catalytic activity/Vol] 17 U/L Normal <32 [facility] Comment on above: Result Comment: SPEC IMEN SLIGHTLY HEMOLYZED, RESULTS MAY BE ADVERSELY AFFECTED. Performed By: #### C DP, BMPX #### [facility] [place] [address] [employer] Mechanic: Ramon Hussein MD Bilirubin [Mass/Vol] 0.3 mg/dL Normal 0.3-1.2 [facility] Comment on above: Performed By: #### C DP, BMPX #### [facility] [address] [place] [phone] [employer] Mechanic: Ramon Hussein MD Calcium [Mass/Vol] 8.7 mg/dL Normal 8.6-10.4 [facility] Comment on above: Performed By: #### C DP, BMPX #### [facility] [address] [place] [address] [employer] Mechanic: Ramon Hussein MD Chloride [Moles/Vol] 102 mmol/L Normal 98-107 [facility] Comment on above: Performed By: #### C DP, BMPX #### [facility] [address] [place] [address] [employer] Mechanic: Ramon Hussein MD CO2 [Moles/Vol] 24 mmol/L Normal 20-31 [facility] Comment on above: Performed By: #### C DP, BMPX #### [facility] [address] [place] [address] [employer] Mechanic: Ramon Hussein MD Creatinine [Mass/Vol] 1.8 mg/dL High 0.5-0.9 [facility] Comment on above: Performed By: #### C DP, BMPX #### [facility] [address] [place] [phone] [employer] Mechanic: Ramon Hussein MD GFR/1.73 sq M.predicted among non-blacks MDRD (S/P/Bld) [Vol rate/Area] 29 mL/min/{1.73_m2} Low >60 [facility] Comment on above: Result Comment: These results [...] Performed By: #### C DP, BMPX #### [facility] [address] [place] [address] [employer] Mechanic: Ramon Hussein MD Glucose [Mass/Vol] 95 mg/dL Normal 70-99 [facility] Comment on above: Performed By: #### C DP, BMPX #### [facility] [address] [place] [address] [employer] Mechanic: Ramon Hussein MD Potassium [Moles/Vol] 4.3 mmol/L Normal 3.7-5.3 [facility] Comment on above: Result Comment: SPEC IMEN SLIGHTLY HEMOLYZED, RESULTS MAY BE ADVERSELY AFFECTED. Performed By: #### C DP, BMPX #### [facility] [address] [place] [phone] [employer]ic: Ramon Hussein MD Protein [Mass/Vol] 7.1 g/dL Normal 6.4-8.3 [facility] Comment on above: Performed By: #### C DP, BMPX #### [facility] [address] [place] [phone] [employer]: Ramon Hussein MD Sodium [Moles/Vol] 139 mmol/L Normal 135-144 [facility] Comment on above: Performed By: #### C DP, BMPX #### [facility] [address] [place] [phone] [employer]ic: Ramon Hussein MD Urea nitrogen [Mass/Vol] 26 mg/dL High 8-23 [facility] Comment on above: Performed By: #### C DP, BMPX #### [facility] [address] [place] [address] [phone] [employer]: Ramon Hussein MD D-Dimer Teston 08-03-2023 D-Dimer Test 1.08 ug/mL FEU High 0.00-0.57 [facility] Comment on above: Result Comment: When combined [...] with distal DVT. Performed By: #### B CERTIFIED MAINTENANCE WELDER, CDP, CP, TROPI, LACTIC, DIME #### [facility] [address] [place] [phone] [employer]: Ramon Hussein MD D-Dimer, Quantitativeon 07-16 Fibrin D-dimer FEU (PPP) [Mass/Vol] 1.08 High [facility] Comment on above: When combined with [...] Interpretation and review of laboratory results Abnormal [facility] Lactic Acidon 08-03-2023 Lactic Acid,Whole Bl 1.6 mmol/L Normal 0.7-2.1 [facility] Comment on above: Performed By: #### B CERTIFIED MAINTENANCE WELDER, CDP, CP, TROPI, LACTIC, DIME #### [facility] [address] [place] [address] [phone] [employer]ic: Ramon Hussein MD Lactic Acid, Whole Blood 1.6 mmol/L 0.7 - 2.1 mmol/L [facility] No Panel Informationon 08-03 Interpretation and review of laboratory results Abnormal [facility] Radiology Study observation (narrative) [facility] Troponinon 08-03-2023 Troponin, High Sens 13 ng/L Normal 0-14 [facility] Comment on above: Result Comment: High Sensitivity Troponin values cannot be compared with other Troponin methodologies. Performed By: #### C DP, BMP #### [facility] [address] [place], [place] [phone] [employer]ic: Ramon Hussein MD Troponin, High Sens 16 ng/L High 0-14 [facility] Comment on above: Result Comment: High Sensitivity Troponin values cannot be compared with other Troponin methodologies. Performed By: #### C DP, BMPX #### [facility] [address] [place] [address] [employer]ic: Ramon Hussein MD Troponin I.cardiac High sensitivity method [Mass/Vol] 13 ng/L 0 - 14 ng/L [facility] Comment on above: High Sensitivity Tro ponin values cannot be compared with other Troponin methodologies. [facility] Troponin I.cardiac High sensitivity method [Mass/Vol] 16 ng/L High 0 - 14 ng/L [facility] Comment on above: High Sensitivity Tro [...] Jesús Yen MD 08/03/23 Final result Normal [facility] XR Chest 2 Viewson 3 1. No [...] cardiomediastinal silhouette and pulmonary vessels appear normal. [facility] RIS CONSOLIDATED Jesús Yen MD - 08/03/2023 [...] No acute findings. 2. Large lung volumes. 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 No [...] Aundrea Evangelista MD 05/19/23 Final result Normal [facility] Basic Metabolic Profon 05-11 Anion gap [Moles/Vol] 11 mmol/L Normal 9-17 [facility] Comment on above: Performed By: #### C DP, BMP #### [facility] [address] [place] [address] [phone] [employer] Mechanic: Ramon Hussein MD Calcium [Mass/Vol] 9.5 mg/dL Normal 8.6-10.4 [facility] Comment on above: Performed By: #### C DP, BMP #### [facility] [address] [place] [address] [phone] [employer]ic: Ramon Hussein MD Chloride [Moles/Vol] 102 mmol/L Normal 98-107 [facility] Comment on above: Performed By: #### C DP, BMP #### [facility] [place] [address] [employer] Mechanic: Ramon Hussein MD CO2 [Moles/Vol] 26 mmol/L Normal 20-31 [facility] Comment on above: Performed By: #### C DP, BMP #### [facility] [address] [place] [phone] [employer]ic: Ramon Hussein MD Creatinine [Mass/Vol] 2.4 mg/dL High 0.5-0.9 [facility] Comment on above: Performed By: #### C DP, BMP #### [facility] [address] [place] [phone] [employer]ic: Ramon Hussein MD GFR/1.73 sq M.predicted among non-blacks MDRD (S/P/Bld) [Vol rate/Area] 21 mL/min/{1.73_m2} Low >60 [facility] Comment on above: Result Comment: These results [...] Performed By: #### C DP, BMP #### [facility] [address] [place] [phone] [employer]ic: Ramon Hussein MD Glucose [Mass/Vol] 136 mg/dL High 70-99 [facility] Comment on above: Performed By: #### C DP, BMP #### [facility] [place] [address] [employer]ic: Ramon Hussein MD Potassium [Moles/Vol] 3.6 mmol/L Low 3.7-5.3 [facility] Comment on above: Performed By: #### C DP, BMP #### [facility] [address] [place] [phone] [employer]ic: Ramon Hussein MD Sodium [Moles/Vol] 139 mmol/L Normal 135-144 [facility] Comment on above: Performed By: #### C DP, BMP #### [address] [address] [employer]ic: Ramon Hussein MD Urea nitrogen [Mass/Vol] 24 mg/dL High 8-23 [facility] Comment on above: Performed By: #### C DP, BMP #### [address] [address] [employer] Mechanic: Ramon Hussein MD CBC with Diffon 05-11-2023 Abs. Basophil 0.03 k/uL Normal 0.00-0.20 [facility] Comment on above: Performed By: #### C DP, BMP #### [address] [address] [employer]ic: Ramon Hussein MD Abs.Imm.Granulocyt e 0.04 k/uL Normal 0.00-0.30 [facility] Comment on above: Performed By: #### C DP, BMP #### [address] [address] [employer]ic: Ramon Hussein MD Abs.Neutrophil (Seg) 5.77 k/uL Normal 1.50-8.10 [facility] Comment on above: Performed By: #### C DP, BMP #### [address] [address] [employer]ic: Ramon Hussein MD Basophils/100 WBC (Bld) 0 % Normal 0-2 [facility] Comment on above: Performed By: #### C DP, BMP #### [facility] [address] [place] [address] [employer] Mechanic: Ramon Hussein MD Eosinophils (Bld) [#/Vol] 0.13 10*3/uL Normal 0.00-0.44 [facility] Comment on above: Performed By: #### C DP, BMP #### [address] [address] [employer]ic: Ramon Hussein MD Eosinophils/100 WBC (Bld) 2 % Normal 1-4 [facility] Comment on above: Performed By: #### C DP, BMP #### [place] [address] [employer]ic: Ramon Hussein MD Erythrocyte distribution width (RBC) [Ratio] 14.6 % High 11.8-14.4 [facility] Comment on above: Performed By: #### C DP, BMP #### [place] [address] [employer]ic: Ramon Hussein MD Hematocrit (Bld) [Volume fraction] 37.4 % Normal 36.3-47.1 [facility] Comment on above: Performed By: #### C DP, BMP #### [place] [address] [employer] Mechanic: Ramon Hussein MD Hemoglobin (Bld) [Mass/Vol] 12.1 g/dL Normal 11.9-15.1 [facility] Comment on above: Performed By: #### C DP, BMP #### [place] [address] [employer]ic: Ramon Hussein MD Immature granulocytes/100 WBC (Bld) 1 % High 0 [facility] Comment on above: Performed By: #### C DP, BMP #### [address] [address] [employer]ic: Ramon Hussein MD Lymphocytes (Bld) [#/Vol] 0.79 10*3/uL Low 1.10-3.70 [facility] Comment on above: Performed By: #### C DP, BMP #### [address] [address] [employer]ic: Ramon Hussein MD Lymphocytes/100 WBC (Bld) 10 % Low 24-43 [facility] Comment on above: Performed By: #### C DP, BMP #### [address] [address] [employer]ic: Ramon Hussein MD MCH (RBC) [Entitic mass] 32.1 pg Normal 25.2-33.5 [facility] Comment on above: Performed By: #### C DP, BMP #### [address] [address] [employer]ic: Ramon Hussein MD MCHC (RBC) [Mass/Vol] 32.4 g/dL Normal 28.4-34.8 [facility] Comment on above: Performed By: #### C DP, BMP #### [address] [address] [employer]ic: Ramon Hussein MD MCV (RBC) [Entitic vol] 99.2 fL Normal 82.6-102.9 [facility] Comment on above: Performed By: #### C DP, BMP #### [address] [address] [employer]ic: Ramon Hussein MD Monocytes (Bld) [#/Vol] 0.99 10*3/uL Normal 0.10-1.20 [facility] Comment on above: Performed By: #### C DP, BMP #### [address] [address] [employer]ic: Ramon Hussein MD Monocytes/100 WBC (Bld) 13 % High 3-12 [facility] Comment on above: Performed By: #### C DP, BMP #### [address] [address] [employer] Mechanic: Ramon Hussein MD Neutrophil (Seg) 74 % High 36-65 [facility] Comment on above: Performed By: #### C DP, BMP #### [address] [address] [employer] Mechanic: Ramon Hussein MD NRBC Automated 0.0 per 100 WBC Normal 0.0 [facility] Comment on above: Performed By: #### C DP, BMP #### [address] [address] [employer]ic: Ramon Hussein MD Platelet mean volume (Bld) [Entitic vol] 10.8 fL Normal 8.1-13.5 [facility] Comment on above: Performed By: #### C DP, BMP #### [address] [address] [employer] Mechanic: Ramon Hussein MD Platelets (Bld) [#/Vol] 321 10*3/uL Normal 138-453 [facility] Comment on above: Performed By: #### C DP, BMP #### [address] [address] [employer] Mechanic: Ramon Hussein MD RBC (Bld) [#/Vol] 3.77 10*6/uL Low 3.95-5.11 [facility] Comment on above: Performed By: #### C DP, BMP #### [address] [address] [employer]ic: Ramon Hussein MD RBC morphology finding Nom (Bld) ANISOCYTOSIS PRESENT Normal [facility] Comment on above: Performed By: #### C DP, BMP #### [address] [address] [employer] Mechanic: Ramon Hussein MD WBC (Bld) [#/Vol] 7.8 10*3/uL Normal 3.5-11.3 [facility] Comment on above: Performed By: #### C DP, BMP #### [address] [address] [employer]ic: Ramon Hussein MD Cult,Urineon 05-11-2023 Cult,Urine Specimen Description .CLEAN CATCH URINE Culture NO SIGNIFICANT GROWTH Report Status FINAL 05/11/2023 Normal [facility] Comment on above: Performed By: #### U RC #### [address] [address] [employer] Mechanic: Ramon Hussein MD UA w/Reflex Cultureon 2022 Bilirubin, SemiQt,Ur Negative Normal NEG [facility] Comment on above: Performed By: #### P E #### [address] [address] [employer] Mechanic: Ramon Hussein MD Blood, Urine Negative Normal NEG [facility] Comment on above: Performed By: #### P E #### [address] [address] [employer] Mechanic: Ramon Hussein MD Clarity (U) Turbid Abnormal CLEAR [facility] Comment on above: Performed By: #### P E #### [address] [address] [employer] Mechanic: Ramon Hussein MD Color (U) Yellow Normal YEL [facility] Comment on above: Performed By: #### P E #### [address] [address] [employer] Mechanic: Ramon Hussein MD Glucose Ql (U) Negative Normal NEG [facility] Comment on above: Performed By: #### P E #### [address] [address] [employer] Mechanic: Ramon Hussein MD Ketones Ql (U) TRACE Abnormal NEG [facility] Comment on above: Performed By: #### P E #### [address] [address] [employer] Mechanic: Ramon Hussein MD Leukocyte esterase Test strip Ql (U) MODERATE Abnormal NEG [facility] Comment on above: Performed By: #### P E #### [address] [address] [employer] Mechanic: Ramon Hussein MD Nitrite,Ur Negative Normal NEG [facility] Comment on above: Performed By: #### P E #### [address] [address] [employer] Mechanic: Ramon Hussein MD PH,Ur 5.5 Normal 5.0-8.0 [facility] Comment on above: Performed By: #### P E #### [address] [address] [employer] Mechanic: Ramon Hussein MD Protein Ql (U) 2+ mg/dL Abnormal NEG [facility] Comment on above: Performed By: #### P E #### [address] [address] [employer] Mechanic: Ramon Hussein MD Spec. [place],Ur 1.016 Normal 1.005-1.030 [facility] Comment on above: Performed By: #### P E #### [address] [address] [employer] Mechanic: Ramon Hussein MD Urobilinogen,Ur Normal Normal 0.0-1.0 [facility] Comment on above: Performed By: #### P E #### [address] [address] [employer] Mechanic: Ramon Hussein MD Urinalysis,Microon 09-26-202 3 Bacteria FEW Abnormal NONE [facility] Comment on above: Performed By: #### P E #### [address] [address] [employer] Mechanic: Ramon Hussein MD Casts 20 TO 50 Normal 0-8 [facility] Comment on above: Result Comment: Refe rence range defined for non-centrifuged specimen. Performed By: #### P E #### [address] [address] [employer]ic: Ramon Hussein MD Epithelial cells LM Ql (Urine sed) 20 TO 50 Normal 0-5 [facility] Comment on above: Performed By: #### P E #### [address] [address] [employer] Mechanic: Ramon Hussein MD Urine RBC's 0 TO 2 Normal 0-4 [facility] Comment on above: Result Comment: Refe rence range defined for non-centrifuged specimen. Performed By: #### P E #### [address] [address] [employer] Mechanic: Ramon Hussein MD Urine WBC's 50 TO 100 Normal 0-5 [facility] Comment on above: Performed By: #### P E #### [address] [address] [employer] Mechanic: Ramon Hussein MD Basic Metabolic Panelon - Anion gap [Moles/Vol] 11 mmol/L 9 - 17 mmol/L [facility] Calcium [Mass/Vol] 9.3 mg/dL 8.6 - 10. 4 mg/dL [facility] Chloride [Moles/Vol] 100 mmol/L 98 - 107 mmol/L [facility] CO2 [Moles/Vol] 25 mmol/L 20 - 31 mmol/L [facility] Creatinine [Mass/Vol] 1.8 mg/dL High 0.5 - 0.9 mg/dL [facility] GFR/1.73 sq M.predicted MDRD (S/P/Bld) [Vol rate/Area] 30 mL/min/{1.73_m2} Low - PINF [facility] [employer] Comment on above: These results are not [...] 82 mg/dL 70 - 99 mg/dL [facility] [employer] Interpretation and review of laboratory results Abnormal [facility] [employer] Potassium [Moles/Vol] 3.7 mmol/L 3.7 - 5.3 mmol/L [facility] [employer] Sodium [Moles/Vol] 136 mmol/L 135 - 144 mmol/L [facility] [employer] Urea nitrogen [Mass/Vol] 34 mg/dL High 8 - 23 mg/dL [facility] [employer] [facility] [employer] Basic Metabolic Profon 04-27 Anion gap [Moles/Vol] 11 mmol/L Normal 9-17 [facility] Comment on above: Performed By: #### C DP, BMPX #### [facility] [address] [place] [address] [employer] Mechanic: Ramon Hussein MD Calcium [Mass/Vol] 9.3 mg/dL Normal 8.6-10.4 [facility] Comment on above: Performed By: #### C DP, BMPX #### [facility] [address] [place], [place] [phone] [employer] Mechanic: Ramon Hussein MD Chloride [Moles/Vol] 100 mmol/L Normal 98-107 [facility] Comment on above: Performed By: #### C DP, BMPX #### [facility] [place], [place] [phone] [employer] Mechanic: Ramon Hussein MD CO2 [Moles/Vol] 25 mmol/L Normal 20-31 [facility] Comment on above: Performed By: #### C DP, BMPX #### [address] [address] [employer] Mechanic: Ramon Hussein MD Creatinine [Mass/Vol] 1.8 mg/dL High 0.5-0.9 [facility] Comment on above: Performed By: #### C DP, BMPX #### [address] [address] [employer] Mechanic: Ramon Hussein MD GFR/1.73 sq M.predicted among non-blacks MDRD (S/P/Bld) [Vol rate/Area] 30 mL/min/{1.73_m2} Low >60 [facility] Comment on above: Result Comment: These results [...] Performed By: #### C DP, BMPX #### [address] [address] [employer] Mechanic: Ramon Hussein MD Glucose [Mass/Vol] 82 mg/dL Normal 70-99 [facility] Comment on above: Performed By: #### C DP, BMPX #### [facility] [address] [place] [address] [employer] Mechanic: Ramon Hussein MD Potassium [Moles/Vol] 3.7 mmol/L Normal 3.7-5.3 [facility] Comment on above: Performed By: #### C DP, BMPX #### [address] [address] [employer] Mechanic: Ramon Hussein MD Sodium [Moles/Vol] 136 mmol/L Normal 135-144 [facility] Comment on above: Performed By: #### C DP, BMPX #### [facility] [address] [place] [address] [employer] Mechanic: Ramon Hussein MD Urea nitrogen [Mass/Vol] 34 mg/dL High 8- [facility] Comment on above: Performed By: #### C DP, BMPX #### [facility] [address] [place] [address] [employer] Mechanic: Raomn Hussein MD CT HEAD WO CONTRASTon 2022 [...] achievable. COMPARISON: Prior outside head CT from [facility] is not available for comparison at this [...] Lj Grossman MD 04/21/23 Final result Normal [facility] Prot. Electroph, Blon 2022 Pathologist Review: ELECTRONICALLY SIGNED. CAM CORLEY M.D. Normal [facility] Comment on above: Performed By: #### P E #### [id number] [place] [address] [employer] Mechanic: Ramon Hussein MD Prot. Elect-Interp ALBUMIN IS DECREASED . MAY BE OBSERVED WITH HEPATIC DISEASE, PROTEINURIA, Normal [facility] Comment on above: Result Comment: MALN UTRITION, ACUTE PHASE RESPONSE, AND HEMODILUTION. Performed By: #### P E #### [address] [address] [employer] Mechanic: Ramon Hussein MD Prot. Electroph, Blon 4 Albumin [Mass/Vol] 3.1 g/dL Low 3.2-5.2 [facility] Comment on above: Performed By: #### P E #### [address] [address] [employer] Mechanic: Ramon Hussein MD Albumin, % 52 % Normal 45-65 [facility] Comment on above: Performed By: #### P E #### [address] [address] [employer] Mechanic: Ramon Hussein MD Pocix-1-rlbkdqcnn 0.2 g/dL Normal 0.1-0.4 [facility] Comment on above: Performed By: #### P E #### [facility] [place] [address] [employer] Mechanic: Ramon Hussein MD Yywiy-6-ilvukngsk, % 4 % Normal 3-6 [facility] Comment on above: Performed By: #### P E #### [address] [address] [employer] Mechanic: Ramon Hussein MD Wzyit-3-okcxlzbkc 0.9 g/dL Normal 0.5-0.9 [facility] Comment on above: Performed By: #### P E #### [address] [address] [employer] Mechanic: Ramon Hussein MD Ceevw-1-yzsjrsflg, % 15 % High 6-13 [facility] Comment on above: Performed By: #### P E #### [address] [address] [employer]ic: Ramon Hussein MD Beta-globulins 0.7 g/dL Normal 0.5-1.1 [facility] Comment on above: Performed By: #### P E #### [address] [address] [employer] Mechanic: Ramon Hussein MD Beta-globulins,% 12 % Normal 11-19 [facility] Comment on above: Performed By: #### P E #### [address] [address] [employer] Mechanic: Ramon Hussein MD Gamma-globulins 1.0 g/dL Normal 0.5-1.5 [facility] Comment on above: Performed By: #### P E #### [address] [address] [employer] Mechanic: Ramon Hussein MD Gamma-globulins,% 18 % Normal 9-20 [facility] Comment on above: Performed By: #### P E #### [address] [address] [employer] Mechanic: Ramon Hussein MD Total Prot. Sum 5.9 g/dL Low 6.3-8.2 [facility] Comment on above: Performed By: #### P E #### [address] [address] [employer] Mechanic: Ramon Hussein MD Total Prot. Sum,% 101 % Normal 98-102 [facility] Comment on above: Performed By: #### P E #### [address] [address] [employer]ic: Ramon Hussein MD Basic Metab w/rfx MGon 04-20 Anion gap [Moles/Vol] 12 mmol/L Normal 9-17 [facility] Comment on above: Performed By: #### P E #### [address] [address] [employer]ic: Ramon Hussein MD Calcium [Mass/Vol] 8.9 mg/dL Normal 8.6-10.4 [facility] Comment on above: Performed By: #### P E #### [address] [address] [employer]ic: Ramon Hussein MD Chloride [Moles/Vol] 108 mmol/L High 98-107 [facility] Comment on above: Performed By: #### P E #### [address] [address] [employer]ic: Ramon Hussein MD CO2 [Moles/Vol] 21 mmol/L Normal 20-31 [facility] Comment on above: Performed By: #### P E #### [address] [address] [employer] Mechanic: Ramon Hussein MD Creatinine [Mass/Vol] 1.5 mg/dL High 0.5-0.9 [facility] Comment on above: Performed By: #### P E #### [address] [address] [employer] Mechanic: Ramon Hussein MD GFR/1.73 sq M.predicted among non-blacks MDRD (S/P/Bld) [Vol rate/Area] 37 mL/min/{1.73_m2} Low >60 [facility] Comment on above: Result Comment: These results [...] secretion. Performed By: #### P E #### [address] [address] [employer]ic: Ramon Hussein MD Glucose [Mass/Vol] 94 mg/dL Normal 70-99 [facility] Comment on above: Performed By: #### P E #### [address] [address] [employer] Mechanic: Ramon Hussein MD Potassium [Moles/Vol] 3.8 mmol/L Normal 3.7-5.3 [facility] Comment on above: Performed By: #### P E #### [address] [address] [employer]ic: Ramon Hussein MD Sodium [Moles/Vol] 141 mmol/L Normal 135-144 [facility] Comment on above: Performed By: #### P E #### [address] [address] [employer] Mechanic: Ramon Hussein MD Urea nitrogen [Mass/Vol] 23 mg/dL Normal 8-23 [facility] Comment on above: Performed By: #### P E #### [address] [address] [employer] Mechanic: Ramon Hussein MD CBC with Diffon 04-20-2023 Abs. Basophil 0.04 k/uL Normal 0.00-0.20 [facility] Comment on above: Performed By: #### C DP, BMP #### [address] [address] [employer] Mechanic: Ramon Hussein MD Abs.Imm.Granulocyt e 0.07 k/uL Normal 0.00-0.30 [facility] Comment on above: Performed By: #### C DP, BMP #### [address] [address] [employer] Vehicle Mechanic: aRmon Hussein MD Abs.Neutrophil (Seg) 6.64 k/uL Normal 1.50-8.10 [facility] Comment on above: Performed By: #### C DP, BMP #### [address] [address] [employer] Vehicle Mechanic: Ramon Hussein MD Basophils/100 WBC (Bld) 0 % Normal 0-2 [facility] Comment on above: Performed By: #### C DP, BMP #### [address] [address] [employer] Vehicle Mechanic: Ramon Hussein MD Eosinophils (Bld) [#/Vol] 0.26 10*3/uL Normal 0.00-0.44 [facility] Comment on above: Performed By: #### C DP, BMP #### [address] [address] [employer] Vehicle Mechanic: Ramon Hussein MD Eosinophils/100 WBC (Bld) 3 % Normal 1-4 [facility] Comment on above: Performed By: #### C DP, BMP #### [address] [address] [employer] Vehicle Mechanic: Ramon Hussein MD Erythrocyte distribution width (RBC) [Ratio] 14.2 % Normal 11.8-14.4 [facility] Comment on above: Performed By: #### C DP, BMP #### [address] [address] [employer] Vehicle Mechanic: Ramon Hussein MD Hematocrit (Bld) [Volume fraction] 36.7 % Normal 36.3-47.1 [facility] Comment on above: Performed By: #### C DP, BMP #### [address] [address] [employer] Vehicle Mechanic: Ramon Hussein MD Hemoglobin (Bld) [Mass/Vol] 11.7 g/dL Low 11.9-15.1 [facility] Comment on above: Performed By: #### C DP, BMP #### [address] [address] [employer] Vehicle Mechanic: Ramon Hussein MD Immature granulocytes/100 WBC (Bld) 1 % High 0 [facility] Comment on above: Performed By: #### C DP, BMP #### [place] [address] [employer] Vehicle Mechanic: Ramon Hussein MD Lymphocytes (Bld) [#/Vol] 0.97 10*3/uL Low 1.10-3.70 [facility] Comment on above: Performed By: #### C DP, BMP #### [address] [address] [employer] Vehicle Mechanic: Ramon Hussein MD Lymphocytes/100 WBC (Bld) 11 % Low 24-43 [facility] Comment on above: Performed By: #### C DP, BMP #### [place] [address] [employer] Vehicle Mechanic: Ramon Hussein MD MCH (RBC) [Entitic mass] 31.5 pg Normal 25.2-33.5 [facility] Comment on above: Performed By: #### C DP, BMP #### [address] [address] [employer] Vehicle Mechanic: Ramon Hussein MD MCHC (RBC) [Mass/Vol] 31.9 g/dL Normal 28.4-34.8 [facility] Comment on above: Performed By: #### C DP, BMP #### [address] [address] [employer] Vehicle Mechanic: Ramon Hussein MD MCV (RBC) [Entitic vol] 98.9 fL Normal 82.6-102.9 [facility] Comment on above: Performed By: #### C DP, BMP #### [address] [address] [employer] Vehicle Mechanic: Ramon Hussein MD Monocytes (Bld) [#/Vol] 1.27 10*3/uL High 0.10-1.20 [facility] Comment on above: Performed By: #### C DP, BMP #### [address] [address] [employer] Vehicle Mechanic: aRmon Hussein MD Monocytes/100 WBC (Bld) 14 % High 3-12 [facility] Comment on above: Performed By: #### C DP, BMP #### [address] [address] [employer] Vehicle Mechanic: Ramon Hussein MD Neutrophil (Seg) 71 % High 36-65 [facility] Comment on above: Performed By: #### C DP, BMP #### [address] [address] [employer] Vehicle Mechanic: Ramon Hussein MD NRBC Automated 0.0 per 100 WBC Normal 0.0 [facility] Comment on above: Performed By: #### C DP, BMP #### [address] [address] [employer] Vehicle Mechanic: Ramon Hussein MD Platelet mean volume (Bld) [Entitic vol] 10.3 fL Normal 8.1-13.5 [facility] Comment on above: Performed By: #### C DP, BMP #### [address] [address] [employer] Vehicle Mechanic: Ramon Hussein MD Platelets (Bld) [#/Vol] 274 10*3/uL Normal 138-453 [facility] Comment on above: Performed By: #### C DP, BMP #### [address] [address] [employer] Vehicle Mechanic: Ramon Hussein MD RBC (Bld) [#/Vol] 3.71 10*6/uL Low 3.95-5.11 [facility] Comment on above: Performed By: #### C DP, BMP #### [address] [address] [employer] Vehicle Mechanic: Ramon Hussein MD WBC (Bld) [#/Vol] 9.3 10*3/uL Normal 3.5-11.3 [facility] Comment on above: Performed By: #### C DP, BMP #### [facility] [address] [place] [address] [employer] [address] Vehicle Mechanic: Ramon Hussein MD Prot. Electroph, Blon 2022 Protein [Mass/Vol] 5.9 g/dL Low 6.4-8.3 [facility] Comment on above: Performed By: #### P E #### [address] [address] [employer] Vehicle Mechanic: Ramon Hussein MD Basic Metab w/rfx MGon 04-19 Anion gap [Moles/Vol] 11 mmol/L Normal 9-17 [facility] Comment on above: Performed By: #### C DP, BMPX #### [facility] [address] [place] [address] [employer] Vehicle Mechanic: Ramon Hussein MD Calcium [Mass/Vol] 8.8 mg/dL Normal 8.6-10.4 [facility] Comment on above: Performed By: #### C DP, BMPX #### [facility] [address] [place] [address] [employer] Vehicle Mechanic: Ramon Hussein MD Chloride [Moles/Vol] 108 mmol/L High 98-107 [facility] Comment on above: Performed By: #### C DP, BMPX #### [address] [address] [employer] Vehicle Mechanic: Ramon Hussein MD CO2 [Moles/Vol] 20 mmol/L Normal 20-31 [facility] Comment on above: Performed By: #### C DP, BMPX #### [address] [address] [employer] Vehicle Mechanic: Ramon Hussein MD Creatinine [Mass/Vol] 1.4 mg/dL High 0.5-0.9 [facility] Comment on above: Performed By: #### C DP, BMPX #### [address] [address] [employer] Vehicle Mechanic: Ramon Hussein MD GFR/1.73 sq M.predicted among non-blacks MDRD (S/P/Bld) [Vol rate/Area] 40 mL/min/{1.73_m2} Low >60 [facility] Comment on above: Result Comment: These results [...] Performed By: #### C DP, BMPX #### [address] [address] [employer] Vehicle Mechanic: Ramon Hussein MD Glucose [Mass/Vol] 103 mg/dL High 70-99 [facility] Comment on above: Performed By: #### C DP, BMPX #### [address] [place] [address] [employer] Vehicle Mechanic: Ramon Hussein MD Potassium [Moles/Vol] 4.3 mmol/L Normal 3.7-5.3 [facility] Comment on above: Result Comment: SPEC IMEN SLIGHTLY HEMOLYZED, RESULTS MAY BE ADVERSELY AFFECTED. Performed By: #### C DP, BMPX #### [facility] [address] [place] [phone] [employer] Vehicle Mechanic: Ramon Hussein MD Sodium [Moles/Vol] 139 mmol/L Normal 135-144 [facility] Comment on above: Performed By: #### C DP, BMPX #### [facility] [address] [place] [address] [employer] Vehicle Mechanic: Ramon Hussein MD Urea nitrogen [Mass/Vol] 22 mg/dL Normal 8-23 [facility] Comment on above: Performed By: #### C DP, BMPX #### [facility] [address] [place] [address] [employer] Vehicle Mechanic: Ramon Hussein MD CBC with Diffon 04-19-2023 Abs. Basophil 0.03 k/uL Normal 0.00-0.20 [facility] Comment on above: Performed By: #### C DP, BMPX #### [facility] [address] [place] [address] [employer] Vehicle Mechanic: Ramon Hussein MD Abs.Imm.Granulocyt e 0.06 k/uL Normal 0.00-0.30 [facility] Comment on above: Performed By: #### C DP, BMPX #### [facility] [address] [place] [address] [employer] Vehicle Mechanic: Ramon Hussein MD Abs.Neutrophil (Seg) 7.21 k/uL Normal 1.50-8.10 [facility] Comment on above: Performed By: #### C DP, BMPX #### [facility] [address] [place] [address] [employer] [address] Vehicle Mechanic: Ramon Hussein MD Basophils/100 WBC (Bld) 0 % Normal 0-2 [facility] Comment on above: Performed By: #### C DP, BMPX #### [address] [address] [employer] Vehicle Mechanic: Ramon Hussein MD Eosinophils (Bld) [#/Vol] 0.21 10*3/uL Normal 0.00-0.44 [facility] Comment on above: Performed By: #### C DP, BMPX #### [address] [address] [employer] Vehicle Mechanic: Ramon Hussein MD Eosinophils/100 WBC (Bld) 2 % Normal 1-4 [facility] Comment on above: Performed By: #### C DP, BMPX #### [address] [address] [employer] Vehicle Mechanic: Ramon Hussein MD Erythrocyte distribution width (RBC) [Ratio] 14.2 % Normal 11.8-14.4 [facility] Comment on above: Performed By: #### C DP, BMPX #### [address] [address] [employer] Vehicle Mechanic: Ramon Hussein MD Hematocrit (Bld) [Volume fraction] 39.2 % Normal 36.3-47.1 [facility] Comment on above: Performed By: #### C DP, BMPX #### [facility] [address] [place] [address] [employer] [address] Vehicle Mechanic: Ramon Hussein MD Hemoglobin (Bld) [Mass/Vol] 12.3 g/dL Normal 11.9-15.1 [facility] Comment on above: Performed By: #### C DP, BMPX #### [facility] [address] [place] [address] [employer] Vehicle Mechanic: Ramon Hussein MD Immature granulocytes/100 WBC (Bld) 1 % High 0 [facility] Comment on above: Performed By: #### C DP, BMPX #### [address] [address] [employer] Vehicle Mechanic: Ramon Hussein MD Lymphocytes (Bld) [#/Vol] 0.79 10*3/uL Low 1.10-3.70 [facility] Comment on above: Performed By: #### C DP, BMPX #### [address] [address] [employer] Vehicle Mechanic: Ramon Hussein MD Lymphocytes/100 WBC (Bld) 8 % Low 24-43 [facility] Comment on above: Performed By: #### C DP, BMPX #### [place] [address] [employer] [address] Vehicle Mechanic: Ramon Hussein MD MCH (RBC) [Entitic mass] 30.8 pg Normal 25.2-33.5 [facility] Comment on above: Performed By: #### C DP, BMPX #### [place] [address] [employer] [address] Vehicle Mechanic: Ramon Hussein MD MCHC (RBC) [Mass/Vol] 31.4 g/dL Normal 28.4-34.8 [facility] Comment on above: Performed By: #### C DP, BMPX #### [place] [address] [employer] [address] Vehicle Mechanic: Ramon Hussein MD MCV (RBC) [Entitic vol] 98.0 fL Normal 82.6-102.9 [facility] Comment on above: Performed By: #### C DP, BMPX #### [address] [address] [employer] Vehicle Mechanic: Ramon Hussein MD Monocytes (Bld) [#/Vol] 1.22 10*3/uL High 0.10-1.20 [facility] Comment on above: Performed By: #### C DP, BMPX #### [place] [address] [employer] [address] Vehicle Mechanic: Ramon Hussein MD Monocytes/100 WBC (Bld) 13 % High 3-12 [facility] Comment on above: Performed By: #### C DP, BMPX #### [place] [address] [employer] [address] Vehicle Mechanic: Ramon Hussein MD Neutrophil (Seg) 76 % High 36-65 [facility] Comment on above: Performed By: #### C DP, BMPX #### [place] [address] [employer] [address] Vehicle Mechanic: Ramon Hussein MD NRBC Automated 0.0 per 100 WBC Normal 0.0 [facility] Comment on above: Performed By: #### C DP, BMPX #### [place] [address] [employer] [address] Vehicle Mechanic: Ramon Hussein MD Platelet mean volume (Bld) [Entitic vol] 10.1 fL Normal 8.1-13.5 [facility] Comment on above: Performed By: #### C DP, BMPX #### [place] [address] [employer] [address] Vehicle Mechanic: Ramon Hussein MD Platelets (Bld) [#/Vol] 260 10*3/uL Normal 138-453 [facility] Comment on above: Performed By: #### C DP, BMPX #### [place] [address] [employer] [address] Vehicle Mechanic: Ramon Hussein MD RBC (Bld) [#/Vol] 4.00 10*6/uL Normal 3.95-5.11 [facility] Comment on above: Performed By: #### C DP, BMPX #### [address] [address] [place] [address] [employer] Vehicle Mechanic: Ramon Hussein MD WBC (Bld) [#/Vol] 9.5 10*3/uL Normal 3.5-11.3 [facility] Comment on above: Performed By: #### C DP, BMPX #### [facility] [address] [place], [place] [id number] [employer] Vehicle Mechanic: Ramon Hussein MD CT HEAD WO CONTRASTon [...] 04/16/2023. HISTORY: ORDERING SYSTEM PROVIDED HISTORY: F/U THE [facility] TECHNOLOGIST PROVIDED HISTORY: F/U IP FINDINGS: BRAIN/VENTRICLES: There is redemonstration of intraparenchymal [...] Prakash Trujillo MD 04/19/23 Final result Normal [facility] Cult,Urineon 04-19-2023 Cult,Urine Specimen Description .CLEAN CATCH URINE Culture NO SAMPLE RECEIVED Report Status FINAL 04/19/2023 Normal [facility] Comment on above: Performed By: #### P E #### [facility] [address] [place] [address] [employer] Vehicle Mechanic: Ramon Hussein MD Basic Metab w/rfx MGon 04-18 Anion gap [Moles/Vol] 11 mmol/L Normal 9-17 [facility] Comment on above: Performed By: #### C DP, BMPX #### [facility] [address] [place] [address] [employer] Vehicle Mechanic: Ramon Hussein MD Calcium [Mass/Vol] 8.6 mg/dL Normal 8.6-10.4 [facility] Comment on above: Performed By: #### C DP, BMPX #### [facility] [address] [place] [address] [employer] Vehicle Mechanic: Ramon Hussein MD Chloride [Moles/Vol] 108 mmol/L High 98-107 [facility] Comment on above: Performed By: #### C DP, BMPX #### [facility] [address] [place] [address] [employer] Vehicle Mechanic: Ramon Hussein MD CO2 [Moles/Vol] 20 mmol/L Normal 20-31 [facility] Comment on above: Performed By: #### C DP, BMPX #### [facility] [address] [place] [address] [employer] Vehicle Mechanic: Ramon Hussein MD Creatinine [Mass/Vol] 1.3 mg/dL High 0.5-0.9 [facility] Comment on above: Performed By: #### C DP, BMPX #### [facility] [address] [place] [address] [employer] Vehicle Mechanic: Ramon Hussein MD GFR/1.73 sq M.predicted among non-blacks MDRD (S/P/Bld) [Vol rate/Area] 44 mL/min/{1.73_m2} Low >60 [facility] Comment on above: Result Comment: These results [...] Performed By: #### C DP, BMPX #### [address] [address] [employer] Vehicle Mechanic: Ramon Hussein MD Glucose [Mass/Vol] 102 mg/dL High 70-99 [facility] Comment on above: Performed By: #### C DP, BMPX #### [facility] [address] [place] [address] [employer] Vehicle Mechanic: Ramon Hussein MD Potassium [Moles/Vol] 3.9 mmol/L Normal 3.7-5.3 [facility] Comment on above: Performed By: #### C DP, BMPX #### [address] [address] [employer] Vehicle Mechanic: Ramon Hussein MD Sodium [Moles/Vol] 139 mmol/L Normal 135-144 [facility] Comment on above: Performed By: #### C DP, BMPX #### [address] [address] [employer] Vehicle Mechanic: Ramon Hussein MD Urea nitrogen [Mass/Vol] 17 mg/dL Normal 8-23 [facility] Comment on above: Performed By: #### C DP, BMPX #### [facility] [address] [place] [address] [employer] Vehicle Mechanic: Ramon Hussein MD CBC with Diffon 04-18-2023 Abs. Basophil 0.03 k/uL Normal 0.00-0.20 [facility] Comment on above: Performed By: #### C DP, BMPX #### [facility] [address] [place] [address] [employer] Vehicle Mechanic: Ramon Hussein MD Abs.Imm.Granulocyt e 0.07 k/uL Normal 0.00-0.30 [facility] Comment on above: Performed By: #### C DP, BMPX #### [facility] [address] [place] [address] [employer] Vehicle Mechanic: Ramon Hussein MD Abs.Neutrophil (Seg) 8.22 k/uL High 1.50-8.10 [facility] Comment on above: Performed By: #### C DP, BMPX #### [facility] [address] [place] [address] [employer] Vehicle Mechanic: Ramon Hussein MD Basophils/100 WBC (Bld) 0 % Normal 0-2 [facility] Comment on above: Performed By: #### C DP, BMPX #### [facility] [address] [place] [address] [employer] Vehicle Mechanic: Ramon Hussein MD Eosinophils (Bld) [#/Vol] 0.15 10*3/uL Normal 0.00-0.44 [facility] Comment on above: Performed By: #### C DP, BMPX #### [facility] [address] [place] [address] [employer] Vehicle Mechanic: Ramon Hussein MD Eosinophils/100 WBC (Bld) 1 % Normal 1-4 [facility] Comment on above: Performed By: #### C DP, BMPX #### [facility] [address] [place] [address] [employer] Vehicle Mechanic: Ramon Hussein MD Erythrocyte distribution width (RBC) [Ratio] 13.8 % Normal 11.8-14.4 [facility] Comment on above: Performed By: #### C DP, BMPX #### [facility] [address] [place] [address] [employer] Vehicle Mechanic: Ramon Hussein MD Hematocrit (Bld) [Volume fraction] 39.6 % Normal 36.3-47.1 [facility] Comment on above: Performed By: #### C DP, BMPX #### [employer] [address] [place] [address] [employer] Vehicle Mechanic: Ramon Hussein MD Hemoglobin (Bld) [Mass/Vol] 12.3 g/dL Normal 11.9-15.1 [facility] Comment on above: Performed By: #### C DP, BMPX #### [facility] [address] [place] [address] [employer] Vehicle Mechanic: Ramon Hussein MD Immature granulocytes/100 WBC (Bld) 1 % High 0 [facility] Comment on above: Performed By: #### C DP, BMPX #### [facility] [address] [place] [address] [employer] Vehicle Mechanic: Ramon Hussein MD Lymphocytes (Bld) [#/Vol] 0.85 10*3/uL Low 1.10-3.70 [facility] Comment on above: Performed By: #### C DP, BMPX #### [facility] [address] [place] [address] [employer] Vehicle Mechanic: Ramon Hussein MD Lymphocytes/100 WBC (Bld) 8 % Low 24-43 [facility] Comment on above: Performed By: #### C DP, BMPX #### [facility] [address] [place] [address] [employer] Vehicle Mechanic: Ramon Hussein MD MCH (RBC) [Entitic mass] 30.6 pg Normal 25.2-33.5 [facility] Comment on above: Performed By: #### C DP, BMPX #### [facility] [address] [place] [address] [employer] Vehicle Mechanic: Ramon Hussein MD MCHC (RBC) [Mass/Vol] 31.1 g/dL Normal 28.4-34.8 [facility] Comment on above: Performed By: #### C DP, BMPX #### [facility] [address] [place] [address] [employer] Vehicle Mechanic: Ramon Hussein MD MCV (RBC) [Entitic vol] 98.5 fL Normal 82.6-102.9 [facility] Comment on above: Performed By: #### C DP, BMPX #### [address] [address] [employer] Vehicle Mechanic: Ramon Hussein MD Monocytes (Bld) [#/Vol] 1.38 10*3/uL High 0.10-1.20 [facility] Comment on above: Performed By: #### C DP, BMPX #### [address] [address] [employer] Vehicle Mechanic: Ramon Hussein MD Monocytes/100 WBC (Bld) 13 % High 3-12 [facility] Comment on above: Performed By: #### C DP, BMPX #### [address] [address] [employer] Vehicle Mechanic: Ramon Hussein MD Neutrophil (Seg) 77 % High 36-65 [facility] Comment on above: Performed By: #### C DP, BMPX #### [address] [address] [employer] Vehicle Mechanic: Ramon Hussein MD NRBC Automated 0.0 per 100 WBC Normal 0.0 [facility] Comment on above: Performed By: #### C DP, BMPX #### [address] [address] [employer] Vehicle Mechanic: Ramon Hussein MD Platelet mean volume (Bld) [Entitic vol] 10.1 fL Normal 8.1-13.5 [facility] Comment on above: Performed By: #### C DP, BMPX #### [address] [address] [employer] Vehicle Mechanic: Ramon Hussein MD Platelets (Bld) [#/Vol] 251 10*3/uL Normal 138-453 [facility] Comment on above: Performed By: #### C DP, BMPX #### [facility] [address] [place] [address] [employer] Vehicle Mechanic: Ramon Hussein MD RBC (Bld) [#/Vol] 4.02 10*6/uL Normal 3.95-5.11 [facility] Comment on above: Performed By: #### C DP, BMPX #### [facility] [address] [place] [address] [employer] Vehicle Mechanic: Ramon Hussein MD WBC (Bld) [#/Vol] 10.7 10*3/uL Normal 3.5-11.3 [facility] Comment on above: Performed By: #### C DP, BMPX #### [address] [address] [employer] Vehicle Mechanic: Ramon Hussein MD Basic Metab w/rfx MGon 04-17 Anion gap [Moles/Vol] 14 mmol/L Normal 9-17 [facility] Comment on above: Performed By: #### C DP, BMPX #### [facility] [address] [place] [address] [employer] Vehicle Mechanic: Ramon Hussein MD Calcium [Mass/Vol] 8.7 mg/dL Normal 8.6-10.4 [facility] Comment on above: Performed By: #### C DP, BMPX #### [facility] [address] [place] [address] [employer] Mechanic: Ramon Hussein MD Chloride [Moles/Vol] 108 mmol/L High 98-107 [facility] Comment on above: Performed By: #### C DP, BMPX #### [facility] [address] [place] [address] [employer] Vehicle Mechanic: Ramon Hussein MD CO2 [Moles/Vol] 19 mmol/L Low 20-31 [facility] Comment on above: Performed By: #### C DP, BMPX #### [facility] [address] [place] [address] [employer] Mechanic: Ramon Hussein MD Creatinine [Mass/Vol] 1.6 mg/dL High 0.5-0.9 [facility] Comment on above: Performed By: #### C DP, BMPX #### [address] [address] [employer] Vehicle Mechanic: Ramon Hussein MD GFR/1.73 sq M.predicted among non-blacks MDRD (S/P/Bld) [Vol rate/Area] 34 mL/min/{1.73_m2} Low >60 [facility] Comment on above: Result Comment: These results [...] Performed By: #### C DP, BMPX #### [address] [address] [employer] Mechanic: Ramon Hussein MD Glucose [Mass/Vol] 98 mg/dL Normal 70-99 [facility] Comment on above: Performed By: #### C DP, BMPX #### [facility] [address] [place] [address] [employer] Mechanic: Ramon Hussein MD Potassium [Moles/Vol] 3.9 mmol/L Normal 3.7-5.3 [facility] Comment on above: Performed By: #### C DP, BMPX #### [facility] [address] [place] [address] [employer] Mechanic: Ramon Hussein MD Sodium [Moles/Vol] 141 mmol/L Normal 135-144 [facility] Comment on above: Performed By: #### C DP, BMPX #### [place] [address] [employer] Mechanic: Ramon Hussein MD Urea nitrogen [Mass/Vol] 21 mg/dL Normal 8-23 [facility] Comment on above: Performed By: #### C DP, BMPX #### [place] [address] [employer] Mechanic: Ramon Hussein MD CBC with Diffon 04-17-2023 Abs. Basophil 0.00 k/uL Normal 0.0-0.2 [facility] Comment on above: Performed By: #### C DP, BMPX #### [place] [address] [employer] Mechanic: Ramon Hussein MD Abs.Imm.Granulocyt e 0.12 k/uL Normal 0.00-0.30 [facility] Comment on above: Performed By: #### C DP, BMPX #### [place] [address] [employer] Mechanic: Ramon Hussein MD Abs.Neutrophil (Seg) 9.52 k/uL High 1.8-7.7 [facility] Comment on above: Performed By: #### C DP, BMPX #### [place] [address] [employer] Mechanic: Ramon Hussein MD Basophils/100 WBC (Bld) 0 % Normal 0-2 [facility] [facility] Comment on above: Performed By: #### C DP, BMPX #### [place] [address] [employer]: Ramon Hussein MD Eosinophils (Bld) [#/Vol] 0.12 10*3/uL Normal 0.0-0.4 [facility] Comment on above: Performed By: #### C DP, BMPX #### [facility] [address] [place] [phone] [employer]: Ramon Hussein MD Eosinophils/100 WBC (Bld) 1 % Normal 1-4 [facility] Comment on above: Performed By: #### C DP, BMPX #### [address] [address] [employer]: Ramon Hussein MD Immature granulocytes/100 WBC (Bld) 1 % High 0 [facility] Comment on above: Performed By: #### C DP, BMPX #### [address] [address] [employer]: Ramon Hussein MD Lymphocytes (Bld) [#/Vol] 0.71 10*3/uL Low 1.0-4.8 [facility] Comment on above: Performed By: #### C DP, BMPX #### [address] [address] [employer]: Ramon Hussein MD Lymphocytes/100 WBC (Bld) 6 % Low 24-44 [facility] Comment on above: Performed By: #### C DP, BMPX #### [address] [address] [employer]: Ramon Hussein MD Monocytes (Bld) [#/Vol] 1.43 10*3/uL High 0.1-0.8 [facility] Comment on above: Performed By: #### C DP, BMPX #### [address] [address] [employer]: Ramon Hussein MD Monocytes/100 WBC (Bld) 12 % High 1-7 [facility] Comment on above: Performed By: #### C DP, BMPX #### [facility] [address] [place] [address] [employer]: Ramon Hussein MD Morphology Jose Cruz (Bld) [Interp] Normal Normal [facility] Comment on above: Performed By: #### C DP, BMPX #### [address] [address] [employer]: Ramon Hussein MD Neutrophil (Seg) 80 % High 36-66 [facility] Comment on above: Performed By: #### C DP, BMPX #### [address] [address] [employer]: Ramon Hussein MD Erythrocyte distribution width (RBC) [Ratio] 14.0 % Normal 11.8-14.4 [facility] Comment on above: Performed By: #### C DP, BMPX #### [address] [address] [employer]: Ramon Hussein MD Hematocrit (Bld) [Volume fraction] 39.4 % Normal 36.3-47.1 [facility] Comment on above: Performed By: #### C DP, BMPX #### [address] [address] [employer]: Ramon Hussein MD Hemoglobin (Bld) [Mass/Vol] 12.2 g/dL Normal 11.9-15.1 [facility] Comment on above: Performed By: #### C DP, BMPX #### [address] [address] [employer]: Ramon Hussein MD MCH (RBC) [Entitic mass] 30.2 pg Normal 25.2-33.5 [facility] Comment on above: Performed By: #### C DP, BMPX #### [address] [address] [employer]: Ramon Hussein MD MCHC (RBC) [Mass/Vol] 31.0 g/dL Normal 28.4-34.8 [facility] Comment on above: Performed By: #### C DP, BMPX #### [address] [address] [employer]: Ramon Hussein MD MCV (RBC) [Entitic vol] 97.5 fL Normal 82.6-102.9 [facility] Comment on above: Performed By: #### C DP, BMPX #### [address] [address] [employer]: Ramon Hussein MD NRBC Automated 0.0 per 100 WBC Normal 0.0 [facility] Comment on above: Performed By: #### C DP, BMPX #### [address] [address] [employer]: Ramon Hussein MD Platelet mean volume (Bld) [Entitic vol] 9.9 fL Normal 8.1-13.5 [facility] Comment on above: Performed By: #### C DP, BMPX #### [address] [address] [employer]: Ramon Hussein MD Platelets (Bld) [#/Vol] 270 10*3/uL Normal 138-453 [facility] Comment on above: Performed By: #### C DP, BMPX #### [place] [address] [employer]: Ramon Hussein MD RBC (Bld) [#/Vol] 4.04 10*6/uL Normal 3.95-5.11 [facility] Comment on above: Performed By: #### C DP, BMPX #### [address] [address] [employer]: Ramon Hussein MD WBC (Bld) [#/Vol] 11.9 10*3/uL High 3.5-11.3 [facility] Comment on above: Performed By: #### C DP, BMPX #### [facility] [address] [place] [phone] [employer]: Ramno Hussein MD Hemoglobin A1Con 04-17-2023 Glucose [Mass/Vol] 120 mg/dL Normal [facility] Comment on above: Result Comment: The ADA and AACC recommend providing the estimated average glucose result to permit better patient understanding of their HBA1c result. Performed By: #### C DP, BMP #### [facility] [address] [place] [phone] [employer]: Ramon Hussein MD HbA1c (Bld) [Mass fraction] 5.8 % Normal 4.0-6.0 [facility] Comment on above: Performed By: #### C DP, BMP #### [address] [address] [employer]: Ramon Hussein MD PTon 04-17-2023 INR Coag (PPP) [Relative time] 1.1 {INR} Normal [facility] Comment on above: Result Comment: Therapeutic Range: Moderate Anticoagulant Intensity: INR = 2.0-3.0 High Anticoagulant Intensity: INR = 2.5-3.5 Performed By: #### P E #### [address] [address] [employer]: Ramon Hussein MD PT Coag (PPP) [Time] 14.2 s Normal 11.7-14.9 [facility] Comment on above: Performed By: #### P E #### [facility] [address] [place] [address] [employer]: Ramon Hussein MD Troponinon 04-17-2023 Troponin, High Sens 16 ng/L High 0-14 [facility] Comment on above: Result Comment: High Sensitivity Troponin values cannot be compared with other Troponin methodologies. Performed By: #### C DP, BMPX #### [facility] [address] [place] [phone] [employer]: Ramon Hussein MD Basic Metabolic Profon 04-16 Anion gap [Moles/Vol] 17 mmol/L Normal 9-17 [facility] Comment on above: Performed By: #### C DP, BMP #### [facility] [address] [place] [address] [employer]: Ramon Hussein MD Calcium [Mass/Vol] 9.1 mg/dL Normal 8.6-10.4 [facility] Comment on above: Performed By: #### C DP, BMP #### [facility] [address] [place] [address] [employer]: Ramon Hussein MD Chloride [Moles/Vol] 107 mmol/L Normal 98-107 [facility] Comment on above: Performed By: #### C DP, BMP #### [facility] [address] [place] [address] [employer]: Ramon Hussein MD CO2 [Moles/Vol] 18 mmol/L Low 20-31 [facility] Comment on above: Performed By: #### C DP, BMP #### [facility] [address] [place] [address] [employer]: Ramon Hussein MD Creatinine [Mass/Vol] 1.8 mg/dL High 0.5-0.9 [facility] Comment on above: Performed By: #### C DP, BMP #### [facility] [address] [place] [address] [employer]: Ramon Hussein MD GFR/1.73 sq M.predicted among non-blacks MDRD (S/P/Bld) [Vol rate/Area] 30 mL/min/{1.73_m2} Low >60 [facility] Comment on above: Result Comment: These results [...] Performed By: #### C DP, BMP #### [address] [address] [employer]: Ramon Hussein MD Glucose [Mass/Vol] 94 mg/dL Normal 70-99 [facility] Comment on above: Performed By: #### C DP, BMP #### [address] [address] [employer]: Ramon Hussein MD Potassium [Moles/Vol] 4.1 mmol/L Normal 3.7-5.3 [facility] Comment on above: Performed By: #### C DP, BMP #### [address] [address] [employer]: Ramon Hussein MD Sodium [Moles/Vol] 142 mmol/L Normal 135-144 [facility] Comment on above: Performed By: #### C DP, BMP #### [address] [address] [employer]: Ramon Hussein MD Urea nitrogen [Mass/Vol] 21 mg/dL Normal 8-23 [facility] Comment on above: Performed By: #### C DP, BMP #### [facility] [address] [place] [phone] [employer]: Ramon Hussein MD CBC with Diffon 04-16-2023 Abs. Basophil 0.03 k/uL Normal 0.00-0.20 [facility] Comment on above: Performed By: #### C DP, BMP #### [facility] [address] [place] [address] [employer]: Ramon Hussein MD Abs.Imm.Granulocyt e 0.05 k/uL Normal 0.00-0.30 [facility] Comment on above: Performed By: #### C DP, BMP #### [place] [address] [employer]: Ramon Hussein MD Abs.Neutrophil (Seg) 9.52 k/uL High 1.50-8.10 [facility] Comment on above: Performed By: #### C DP, BMP #### [place] [address] [employer]: Ramon Hussein MD Basophils/100 WBC (Bld) 0 % Normal 0-2 [facility] Comment on above: Performed By: #### C DP, BMP #### [place] [address] [employer]: Ramon Hussein MD Eosinophils (Bld) [#/Vol] 0.07 10*3/uL Normal 0.00-0.44 [facility] Comment on above: Performed By: #### C DP, BMP #### [place] [address] [employer]: Ramon Hussein MD Eosinophils/100 WBC (Bld) 1 % Normal 1-4 [facility] Comment on above: Performed By: #### C DP, BMP #### [place] [address] [employer]: Ramon Hussein MD Erythrocyte distribution width (RBC) [Ratio] 14.1 % Normal 11.8-14.4 [facility] Comment on above: Performed By: #### C DP, BMP #### [place] [address] [employer]: Ramon Hussein MD Hematocrit (Bld) [Volume fraction] 40.9 % Normal 36.3-47.1 [facility] Comment on above: Performed By: #### C DP, BMP #### [address] [address] [employer]: Ramon Hussein MD Hemoglobin (Bld) [Mass/Vol] 12.5 g/dL Normal 11.9-15.1 [facility] Comment on above: Performed By: #### C DP, BMP #### [address] [address] [employer]: Ramon Hussein MD Immature granulocytes/100 WBC (Bld) 0 % Normal 0 [facility] Comment on above: Performed By: #### C DP, BMP #### [address] [address] [employer]: Ramon Hussein MD Lymphocytes (Bld) [#/Vol] 0.86 10*3/uL Low 1.10-3.70 [facility] Comment on above: Performed By: #### C DP, BMP #### [address] [address] [employer]: Ramon Hussein MD Lymphocytes/100 WBC (Bld) 7 % Low 24-43 [facility] Comment on above: Performed By: #### C DP, BMP #### [address] [address] [employer]: Ramon Hussein MD MCH (RBC) [Entitic mass] 31.2 pg Normal 25.2-33.5 [facility] Comment on above: Performed By: #### C DP, BMP #### [address] [address] [employer]: Ramon Hussein MD MCHC (RBC) [Mass/Vol] 30.6 g/dL Normal 28.4-34.8 [facility] Comment on above: Performed By: #### C DP, BMP #### [facility] [address] [place] [phone] [employer]: Ramon Hussein MD MCV (RBC) [Entitic vol] 102.0 fL Normal 82.6-102.9 [facility] Comment on above: Performed By: #### C DP, BMP #### [address] [address] [employer]: Ramon Hussein MD Monocytes (Bld) [#/Vol] 1.36 10*3/uL High 0.10-1.20 [facility] Comment on above: Performed By: #### C DP, BMP #### [address] [address] [employer]: Ramon Hussein MD Monocytes/100 WBC (Bld) 11 % Normal 3-12 [facility] Comment on above: Performed By: #### C DP, BMP #### [place] [address] [employer]ic: Ramon Hussein MD Neutrophil (Seg) 81 % High 36-65 [facility] Comment on above: Performed By: #### C DP, BMP #### [address] [address] [employer]: Ramon Hussein MD NRBC Automated 0.0 per 100 WBC Normal 0.0 [facility] Comment on above: Performed By: #### C DP, BMP #### [place] [address] [employer]: Ramon Hussein MD Platelet mean volume (Bld) [Entitic vol] 9.7 fL Normal 8.1-13.5 [facility] Comment on above: Performed By: #### C DP, BMP #### [address] [address] [employer]: Ramon Hussein MD Platelets (Bld) [#/Vol] 296 10*3/uL Normal 138-453 [facility] Comment on above: Performed By: #### C DP, BMP #### [address] [address] [employer]: Ramon Hussein MD RBC (Bld) [#/Vol] 4.01 10*6/uL Normal 3.95-5.11 [facility] Comment on above: Performed By: #### C DP, BMP #### [address] [address] [employer]: Ramon Hussein MD WBC (Bld) [#/Vol] 11.9 10*3/uL High 3.5-11.3 [facility] Comment on above: Performed By: #### C DP, BMP #### [address] [address] [employer]: Ramon Hussein MD Comp Metabolic Profon 2022 Albumin [Mass/Vol] 3.4 g/dL Low 3.5-5.2 [facility] Comment on above: Performed By: #### C DP, BMP #### [address] [address] [employer]: Ramon Hussein MD Albumin/Glob Ratio 0.9 Low 1.0-2.5 [facility] Comment on above: Performed By: #### C DP, BMP #### [address] [address] [employer]: Ramon Hussein MD Alkaline Phos 91 U/L Normal 35-104 [facility] Comment on above: Performed By: #### C DP, BMP #### [facility] [address] [place] [address] [employer]: Ramon Hussein MD ALT [Catalytic activity/Vol] 8 U/L Normal 5-33 [facility] Comment on above: Performed By: #### C DP, BMP #### [facility] [address] [place] [address] [employer]: Ramon Hsusein MD Anion gap [Moles/Vol] 19 mmol/L High 9-17 [facility] Comment on above: Performed By: #### C DP, BMP #### [facility] [address] [place] [address] [employer]: Ramon Hussein MD AST [Catalytic activity/Vol] 13 U/L Normal <32 [facility] Comment on above: Performed By: #### C DP, BMP #### [address] [address] [employer]: Ramon Hussein MD Bilirubin [Mass/Vol] 0.6 mg/dL Normal 0.3-1.2 [facility] Comment on above: Performed By: #### C DP, BMP #### [facility] [address] [place] [address] [employer]: Ramon Hussein MD Calcium [Mass/Vol] 8.9 mg/dL Normal 8.6-10.4 [facility] Comment on above: Performed By: #### C DP, BMP #### [facility] [address] [place] [address] [employer]: Ramon Hussein MD Chloride [Moles/Vol] 108 mmol/L High 98-107 [facility] Comment on above: Performed By: #### C DP, BMP #### [facility] [address] [place] [address] [employer]ic: Ramon Hussein MD CO2 [Moles/Vol] 15 mmol/L Low 20-31 [facility] Comment on above: Performed By: #### C DP, BMP #### [facility] [address] [place] [address] [employer]: Ramon Hussein MD Creatinine [Mass/Vol] 1.9 mg/dL High 0.5-0.9 [facility] Comment on above: Performed By: #### C DP, BMP #### [facility] [address] [place] [address] [employer]: Ramon Hussein MD GFR/1.73 sq M.predicted among non-blacks MDRD (S/P/Bld) [Vol rate/Area] 28 mL/min/{1.73_m2} Low >60 [facility] Comment on above: Result Comment: These results [...] Performed By: #### C DP, BMP #### [facility] [address] [place] [address] [employer]: Ramon Hussein MD Glucose [Mass/Vol] 103 mg/dL High 70-99 [facility] Comment on above: Performed By: #### C DP, BMP #### [facility] [address] [place] [address] [employer]: Ramon Hussein MD Potassium [Moles/Vol] 4.3 mmol/L Normal 3.7-5.3 [facility] Comment on above: Performed By: #### C DP, BMP #### [facility] [address] [place] [address] [employer]: Ramon Hussein MD Protein [Mass/Vol] 7.0 g/dL Normal 6.4-8.3 [facility] Comment on above: Performed By: #### C DP, BMP #### [facility] [address] [place] [address] [employer]ic: Ramon Hussein MD Sodium [Moles/Vol] 142 mmol/L Normal 135-144 [facility] Comment on above: Performed By: #### C DP, BMP #### [facility] [address] [place] [address] [employer]: Ramon Hussein MD Urea nitrogen [Mass/Vol] 24 mg/dL High 8-23 [facility] Comment on above: Performed By: #### C DP, BMP #### [facility] [address] [place] [address] [employer]: Ramon Hussein MD Creatine Kinaseon 04-16-2023 CK [Catalytic activity/Vol] 119 U/L Normal 26-192 [facility] Comment on above: Performed By: #### C DP, BMP #### [facility] [address] [place] [address] [employer]: Ramon Hussein MD Lactic Acidon 04-16-2023 Lactic Acid,Whole Bl 1.1 mmol/L Normal 0.7-2.1 [facility] Comment on above: Performed By: #### C DP, BMP #### [facility] [address] [place] [address] [employer]: Ramon Hussein MD Lipid Profileon 04-16-2023 Cholesterol [Mass/Vol] 156 mg/dL Normal <200 [facility] Comment on above: Result Comment: Cholesterol Guidelines: <200 Desirable 200-240 Borderline >240 Undesirable Performed By: #### C DP, BMP #### [facility] [address] [place] [address] [employer]: Ramon Hussein MD Cholesterol in HDL [Mass/Vol] 40 mg/dL Low >40 [facility] Comment on above: Result Comment: HDL Guidelines: <40 Undesirable 40-59 Borderline >59 Desirable Performed By: #### C DP, BMP #### [facility] [address] [place] [phone] [employer]: Ramon Hussein MD Cholesterol in LDL [Mass/Vol] 94 mg/dL Normal 0-130 [facility] Comment on above: Result Comment: LDL Guidelines: <100 Desirable 100-129 Near to/above Desirable 130-159 Borderline >159 Undesirable Direct (measured) LDL and calculated LDL are not interchangeable tests. Performed By: #### C DP, BMP #### [facility] [address] [place] [address] [employer]: Ramon Hussein MD Cholesterol.total/ Cholesterol in HDL [Mass ratio] 3.9 {ratio} Normal <5 [facility] Comment on above: Performed By: #### C DP, BMP #### [facility] [address] [place] [address] [employer]: Ramon Hussein MD Triglyceride [Mass/Vol] 111 mg/dL Normal <150 [facility] Comment on above: Result Comment: Triglyceride Guidelines: <150 Desirable 150-199 Borderline 200-499 High >499 Very high Based on AHA Guidelines for fasting triglyceride, May 2012. Performed By: #### C DP, BMP #### [facility] [address] [place] [address] [employer]: Ramon Hussein MD MRA HEAD WO CONTRASTon 04-16 MRA HEAD WO CONTRAST EXAMINATION: MRI OF THE BRAIN WITHOUT CONTRAST AND MRA HEAD WITHOUT CONTRAST 04/16/2023 12:16 pm TECHNIQUE: Multiplanar multisequence MRI of the brain was performed without the administration of intravenous contrast. MRA of the head was performed utilizing [id number] imaging with MIP images. No intravenous contrast [...] Prakash Trujillo MD 04/16/23 Final result Normal [facility] MRI BRAIN WO CONTRASTon MRI BRAIN WO CONTRAST EXAMINATION: MRI OF THE BRAIN WITHOUT CONTRAST AND MRA HEAD WITHOUT CONTRAST 04/16/2023 12:16 pm TECHNIQUE: Multiplanar multisequence MRI of the brain was performed without the administration of intravenous contrast. MRA of the head was performed utilizing [id number] imaging with MIP images. No intravenous contrast [...] Prakash Trujillo MD 04/16/23 Final result Normal [facility] MRV HEAD WO CONTRASTon 04-16 MRV HEAD [...] Angelito Mora MD 04/16/23 Final result Normal [facility] Myoglobinon 04-16-2023 Myoglobin [Mass/Vol] 136 ng/mL High 25-58 [facility] Comment on above: Performed By: #### C DP, BMP #### [facility] [address] [place], [place] [phone] [employer]: Ramon Hussein MD TSH w/reflex to FT4on 2022 Thyroid Stim. Horm. 1.75 uIU/mL Normal 0.30-5.00 [facility] Comment on above: Performed By: #### C DP, BMP #### [facility] [address] [place] [phone] [employer]: Ramon Hussein MD Troponinon 04-16-2023 Troponin, High Sens 18 ng/L High 0-14 [facility] Comment on above: Result Comment: High Sensitivity Troponin values cannot be compared with other Troponin methodologies. Performed By: #### C DP, BMP #### [address] [address] [employer]: Ramon Hussein MD Troponin, High Sens 17 ng/L High 0-14 [facility] Comment on above: Result Comment: High Sensitivity Troponin values cannot be compared with other Troponin methodologies. Performed By: #### C DP, BMP #### [address] [address] [employer]: Ramon Hussein MD UA w/Reflex Cultureon 2022 Bilirubin, SemiQt,Ur Negative Normal NEG [facility] Comment on above: Performed By: #### C DP, BMP #### [address] [address] [employer]: Ramon Hussein MD Blood, Urine MODERATE Abnormal NEG [facility] Comment on above: Performed By: #### C DP, BMP #### [address] [address] [employer]: Ramon Hussein MD Clarity (U) Clear Normal CLEAR [facility] Comment on above: Performed By: #### C DP, BMP #### [address] [address] [employer]: Ramon Hussein MD Color (U) Yellow Normal YEL [facility] Comment on above: Performed By: #### C DP, BMP #### [facility] [address] [place] [address] [employer]: Ramon Hussein MD Glucose Ql (U) Negative Normal NEG [facility] Comment on above: Performed By: #### C DP, BMP #### [address] [phone] [employer]: Ramon Hussein MD Ketones Ql (U) SMALL Abnormal NEG [facility] Comment on above: Performed By: #### C DP, BMP #### [address] [address] [employer]: Ramon Hussein MD Leukocyte esterase Test strip Ql (U) TRACE Abnormal NEG [facility] Comment on above: Performed By: #### C DP, BMP #### [address] [address] [employer]: Ramon Hussein MD Nitrite,Ur Negative Normal NEG [facility] Comment on above: Performed By: #### C DP, BMP #### [facility] [address] [place] [phone] [employer]: Ramon Hussein MD PH,Ur 6.5 Normal 5.0-8.0 [facility] Comment on above: Performed By: #### C DP, BMP #### [address] [address] [employer]: Ramon Hussein MD Protein Ql (U) 3+ mg/dL Abnormal NEG [facility] Comment on above: Performed By: #### C DP, BMP #### [address] [address] [employer]: Ramon Hussein MD Spec. [place],Ur 1.012 Normal 1.005-1.030 [facility] Comment on above: Performed By: #### C DP, BMP #### [facility] [address] [place] [id number] [employer]: Ramon Hussein MD Urobilinogen,Ur Normal Normal 0.0-1.0 [facility] Comment on above: Performed By: #### C DP, BMP #### [address] [id number] [employer]: Ramon Hussein MD US RENAL COMPLETEon 04-16-20 US RENAL COMPLETE EXAMINATION: RETROPERITONEAL ULTRASOUND OF [...] Johnnie Ramsey MD 04/16/23 Final result Normal [facility] Urinalysis,Microon 3 Casts 2 TO 5 Normal 0-2 [facility] Comment on above: Result Comment: HYAL INE Performed By: #### C DP, BMP #### [facility] [address] [place] [id number] [employer]: Ramon Hussein MD Epithelial cells LM Ql (Urine sed) 2 TO 5 Normal 0-5 [facility] Comment on above: Performed By: #### C DP, BMP #### [facility] [address] [place] [id number] [employer]: Ramon Hussein MD Urine RBC's 20 TO 50 Normal 02 [facility] Comment on above: Performed By: #### C DP, BMP #### [facility] [address] [place] [id number] [employer]: Ramon Hussein MD Urine WBC's 5 TO 10 Normal 05 [facility] Comment on above: Performed By: #### C DP, BMP #### [facility] [address] [place] [id number] [employer]: Ramon Hussein MD PTH INTACTon 12-17-2022 PTH, Intact 69 pg/mL Critically high 15-65 [facility] Comment on above: Performed By: #### F ERR, VITAD, FETIBC #### [facility] [address] [place] [address] Dr. Catarino Curran FERRITINon 12-16-2022 Ferritin [Mass/Vol] 72.0 ng/mL Normal 8.0-252.0 [facility] Comment on above: Performed By: #### F ERR, VITAD, FETIBC #### [facility] [address] [place] [address] Dr. Catarino Curran HEMOGRAM AND PLATELon 2022 Hematocrit (Bld) [Volume fraction] 40.8 % Normal 36.0-48.0 [facility] Comment on above: Performed By: #### H H #### [facility] [address] [place] [address] Dr. Catarino Curran Hemoglobin (Bld) [Mass/Vol] 13.3 g/dL Normal 12.0-16.0 [facility] Comment on above: Performed By: #### H H #### [facility] [address] [place] [address] Dr. Catarino Curran MCH (RBC) [Entitic mass] 30.6 pg Normal 26.7-34.0 [facility] Comment on above: Performed By: #### H H #### [facility] [address] [place] [address] Dr. Catarino Curran MCHC (RBC) [Mass/Vol] 32.6 g/dL Normal 29.9-35.2 [facility] Comment on above: Performed By: #### H H #### [facility] [address] [place] [address] Dr. Catarino Curran MCV (RBC) [Entitic vol] 94.0 fL Normal 81.0-99.0 [facility] Comment on above: Performed By: #### H H #### [facility] [address] [place] [address] Dr. Catarino Curran PLT 277 103/ul Normal 150-450 [facility] Comment on above: Performed By: #### H H #### [facility] [address] [place] [address] Dr. Catarino Curran RBC 4.34 106/ul Normal 4.20-5.40 [facility] Comment on above: Performed By: #### H H #### [facility] [address] [place] [address] Dr. Catarino Curran WBC 9.0 103/ul Normal 4.0-11.0 [facility] Comment on above: Performed By: #### H H #### [facility] [address] [place] [address] Dr. Catarino Curran IRON AND TIBCon 12-16-2022 % SATURATION 27.5 % Normal [facility] Comment on above: Performed By: #### F ERR, VITAD, FETIBC #### [facility] [address] [place] [address] Dr. Catarino Curran Iron [Mass/Vol] 86.0 ug/dL Normal 50.0-170.0 [facility] Comment on above: Performed By: #### F ERR, VITAD, FETIBC #### [facility] [address] [place] [address] Dr. Catarino Curran TIBC DIRECT 313.0 ug/dL Normal 250.0-450.0 [facility] Comment on above: Performed By: #### F ERR, VITAD, FETIBC #### [facility] [address] [place] [address] Dr. Catarino Curran MAGNESIUMon 12-16-2022 Magnesium [Mass/Vol] 2.1 mg/dL Normal 1.8-2.4 [facility] Comment on above: Performed By: #### F ERR, VITAD, FETIBC #### [facility] [address] [place] [address] Dr. Catarino Curran RENAL FUNCTION PANELon 12-16 Albumin [Mass/Vol] 3.2 g/dL Critically low 3.4-5.0 [facility] Comment on above: Performed By: #### F ERR, VITAD, FETIBC #### [facility] [address] [place] [address] Dr. Catarino Curran Calcium [Mass/Vol] 8.8 mg/dL Normal 8.5-10.1 [facility] Comment on above: Performed By: #### F ERR, VITAD, FETIBC #### [facility] [address] [address] [address] Catarino Curran Chloride [Moles/Vol] 104 mmol/L Normal 98-107 [facility] Comment on above: Performed By: #### F ERR, VITAD, FETIBC #### [facility] [address] [address] [address] Catarino Curran CO2 [Moles/Vol] 30.4 mmol/L Normal 21.0-32.0 [facility] Comment on above: Performed By: #### F ERR, VITAD, FETIBC #### [facility] [address] [address] [address] Catarino Curran Creatinine [Mass/Vol] 2.07 mg/dL Critically high 0.55-1.02 [facility] Comment on above: Performed By: #### F ERR, VITAD, FETIBC #### [facility] [address] [address] [address] Catarino Curran EGFR-AF MARSHALLESE 29 mL/min/1.73m2 Critically low >=60 [facility] Comment on above: Performed By: #### F ERR, VITAD, FETIBC #### [facility] [address] [address] [address] Catarino Curran EGFR-NON AF MARSHALLESE 24 mL/min/1.73m2 Critically low >=60 [facility] Comment on above: Performed By: #### F ERR, VITAD, FETIBC #### [facility] [address] [address] [address] Catarino Curran Glucose [Mass/Vol] 85 mg/dL Normal 74-106 [facility] Comment on above: Performed By: #### F ERR, VITAD, FETIBC #### [facility] [address] [address] [address] Catarino Curran Phosphate [Mass/Vol] 3.4 mg/dL Normal 2.6-4.7 [facility] Comment on above: Performed By: #### F ERR, VITAD, FETIBC #### [facility] [address] [address] [address] Catarino Curran Potassium [Moles/Vol] 3.7 mmol/L Normal 3.5-5.1 [facility] Comment on above: Performed By: #### F ERR, VITAD, FETIBC #### [facility] [address] [address] [address] Catarino Curran Sodium [Moles/Vol] 139 mmol/L Normal 136-145 [facility] Comment on above: Performed By: #### F ERR, VITAD, FETIBC #### [facility] [address] [place] [address] Dr. Catarino Curran Urea nitrogen [Mass/Vol] 21.0 mg/dL Critically high 7.0-18.0 [facility] Comment on above: Performed By: #### F ERR, VITAD, FETIBC #### [facility] [address] [place] [address] Dr. Catarino Curran UA RANDOM W/MICROSCOPICon BACTERIA MODERATE Abnormal NONE SEEN [facility] Comment on above: Performed By: #### F ERR, VITAD, FETIBC #### [facility] [address] [place] [address] Dr. Catarino Curran Bilirubin Ql (U) Negative Normal NEGATIVE [facility] Comment on above: Performed By: #### F ERR, VITAD, FETIBC #### [facility] [address] [place] [address] Dr. Catarino Curran CAST NONE SEEN Normal NONE SEEN [facility] Comment on above: Performed By: #### F ERR, VITAD, FETIBC #### [facility] [address] [place] [address] Dr. Catarino Curran Clarity (U) CLEAR Normal CLEAR [facility] Comment on above: Performed By: #### F ERR, VITAD, FETIBC #### [facility] [address] [place] [address] Dr. Catarino Curran Color (U) LT. YELLOW Normal YELLOW [facility] Comment on above: Performed By: #### F ERR, VITAD, FETIBC #### [facility] [address] [address] [address] Catarino Curran Crystals LM Nom (Urine sed) NONE SEEN Normal NONE SEEN [facility] Comment on above: Performed By: #### F ERR, VITAD, FETIBC #### [facility] [address] [address] [address] Catarino Curran Epithelial cells LM Ql (Urine sed) FEW Abnormal NONE SEEN /RARE [facility] Comment on above: Performed By: #### F ERR, VITAD, FETIBC #### [facility] [address] [place] [address] Dr. Catarino Curran Glucose Ql (U) Negative Normal NEGATIVE [facility] Comment on above: Performed By: #### F ERR, VITAD, FETIBC #### [facility] [address] [place] [address] Dr. Catarino Curran Hemoglobin Ql (U) TRACE-INTACT Abnormal NEGATIVE [facility] Comment on above: Performed By: #### F ERR, VITAD, FETIBC #### [facility] [address] [place] [address] Dr. Catarino Curran Ketones Ql (U) Negative Normal NEGATIVE [facility] Comment on above: Performed By: #### F ERR, VITAD, FETIBC #### [facility] [address] [address] [address] Catarino Curran LEUKOCYTES SMALL Abnormal NEGATIVE [facility] Comment on above: Performed By: #### F ERR, VITAD, FETIBC #### [facility] [address] [address] [address] Catarino Curran MUCOUS NONE SEEN Normal NONE SEEN [facility] Comment on above: Performed By: #### F ERR, VITAD, FETIBC #### [facility] [address] [place] [address] Dr. Catarino Curran Nitrite Ql (U) Positive Abnormal NEGATIVE [facility] Comment on above: Performed By: #### F ERR, VITAD, FETIBC #### [facility] [address] [place] [address] Dr. Catarino Curran pH (U) 5.5 [pH] Normal 5-9 [facility] Comment on above: Performed By: #### F ERR, VITAD, FETIBC #### [facility] [address] [place] [address] Dr. Catarino Curran RBC 0-2 Normal 0-2 [facility] Comment on above: Performed By: #### F ERR, VITAD, FETIBC #### [facility] [address] [place] [address] Dr. Catarino Curran SPEC GRAVITY 1.025 Normal 1.005-<=1.02 5 [facility] Comment on above: Performed By: #### F ERR, VITAD, FETIBC #### [facility] [address] [place] [address] Dr. Catarino Curran UA PROTEIN >300 Abnormal NEGATIVE/ TRACE [facility] Comment on above: Performed By: #### F ERR, VITAD, FETIBC #### [facility] [address] [place] [address] Dr. Catarino Curran Urobilinogen Qn (U) 0.2 {Jake'U}/dL Normal 0.2 - 1.0 [facility] Comment on above: Performed By: #### F ERR, VITAD, FETIBC #### [facility] [address] [place] [address] Dr. Catarino Curran WBC 10-20 Abnormal NONE SEEN [facility] Comment on above: Performed By: #### F ERR, VITAD, FETIBC #### [facility] [address] [place] [address] Dr. Catarino Curran URIC ACID SERUMon 12-16-2022 Urate [Mass/Vol] 7.1 mg/dL Critically high 2.6-6.0 [facility] Comment on above: Performed By: #### F ERR, VITAD, FETIBC #### [facility] [address] [place] [address] Dr. Catarino Curran URINE T PROTEIN CREAT RATIOo n 12-16-2022 Protein (U) [Mass/Vol] 216.7 mg/dL Critically high <=12.0 [facility] Comment on above: Performed By: #### H H #### [facility] [address] [place] [address] Dr. Catarino Curran UR PROT CREAT RAT 1.35 Normal [facility] Comment on above: Performed By: #### H H #### [facility] [address] [address] [address] Catarino Curran URINE CREAT 160.63 mg/dL Normal 20.00-300.00 [facility] Comment on above: Performed By: #### H H #### [facility] [address] [place] [address] Dr. Catarino Curran VITAMIN D 25 OHon 12-16-2022 VIT D 25-OH 15.0 ng/mL Normal [facility] Comment on above: Performed By: #### F ERR, VITAD, FETIBC #### [facility] [address] [place] [address] Dr. Catarino Curran VIT D RANGES SEE BELOW Normal [facility] Comment on above: Result Comment: <20 ng/mL Vit D deficient 20 - <30 ng/mL Vit D insufficient 30 - 100 ng/mL Vit D sufficient >100 ng/mL Potential Toxicity Performed By: #### F ERR, VITAD, FETIBC #### [facility] [address] [place] [address] Dr. Catarino Curran FREE T3on 09-16-2022 FREE T3 1.93 pg/mlL Critically low 2.18-3.98 [facility] Comment on above: Performed By: #### F ERR, VITAD, FETIBC #### [facility] [address] [place] [address] Dr. Catarino Curran FREE T4on 09-16-2022 Free T4 [Mass/Vol] 1.12 ng/dL Normal 0.76-1.46 [facility] Comment on above: Performed By: #### H H #### [facility] [address] [place] [address] Dr. Catarino Curran TSHon 09-16-2022 TSH 0.389 uIU/mL Normal 0.358-3.740 [facility] Comment on above: Performed By: #### F ERR, JONATHAN, FETIBC #### [facility] [address] [address] [address] Catarino Curran RENAL FUNCTION PANELon 08-17 Albumin [Mass/Vol] 3.2 g/dL Critically low 3.4-5.0 [facility] Comment on above: Performed By: #### H H #### [facility] [address] [address] [address] Catarino Curran Calcium [Mass/Vol] 8.8 mg/dL Normal 8.5-10.1 [facility] Comment on above: Performed By: #### H H #### [facility] [address] [place] [address] Dr. Catarino Curran Chloride [Moles/Vol] 106 mmol/L Normal 98-107 [facility] Comment on above: Performed By: #### H H #### [facility] [address] [address] [address] Catarino Curran CO2 [Moles/Vol] 29.6 mmol/L Normal 21.0-32.0 [facility] Comment on above: Performed By: #### H H #### [facility] [address] [address] [address] Catarino Curran Creatinine [Mass/Vol] 1.78 mg/dL Critically high 0.55-1.02 [facility] Comment on above: Performed By: #### H H #### [facility] [address] [address] [address] Catarino Curran EGFR-AF MARSHALLESE 34 mL/min/1.73m2 Critically low >=60 [facility] Comment on above: Performed By: #### H H #### [facility] [address] [address] [address] Catarino Curran EGFR-NON AF MARSHALLESE 28 mL/min/1.73m2 Critically low >=60 [facility] Comment on above: Performed By: #### H H #### [facility] [address] [address] [address] Catarino Curran Glucose [Mass/Vol] 88 mg/dL Normal 74-106 [facility] Comment on above: Performed By: #### H H #### [facility] [address] [address] [address] Catarino Curran Phosphate [Mass/Vol] 3.3 mg/dL Normal 2.6-4.7 [facility] Comment on above: Performed By: #### H H #### [facility] [address] [address] [address] Catarino Curran Potassium [Moles/Vol] 4.0 mmol/L Normal 3.5-5.1 [facility] Comment on above: Performed By: #### H H #### [facility] [address] [address] [address] Catarino Curran Sodium [Moles/Vol] 143 mmol/L Normal 136-145 [facility] Comment on above: Performed By: #### H H #### [facility] [address] [address] [address] Catarino Curran Urea nitrogen [Mass/Vol] 21.0 mg/dL Critically high 7.0-18.0 [facility] Comment on above: Performed By: #### H H #### [facility] [address] [address] [address] Catarino Curran UA RANDOM W/MICROSCOPICon BACTERIA SMALL Abnormal NONE SEEN [facility] Comment on above: Performed By: #### F ERR, VITAD, FETIBC #### [facility] [address] [address] [address] Catarino Curran Bilirubin Ql (U) Negative Normal NEGATIVE [facility] Comment on above: Performed By: #### F ERR, VITAD, FETIBC #### [facility] [address] [address] [address] Catarino Curran CAST NONE SEEN Normal NONE SEEN [facility] Comment on above: Performed By: #### F ERR, VITAD, FETIBC #### [facility] [address] [address] [address] Catarino Curran Clarity (U) CLEAR Normal CLEAR [facility] Comment on above: Performed By: #### F ERR, VITAD, FETIBC #### [facility] [address] [address] [address] Catarino Curran Color (U) LT. YELLOW Normal YELLOW [facility] Comment on above: Performed By: #### F ERR, VITAD, FETIBC #### [facility] [address] [address] [address] Catarino Curran Crystals LM Nom (Urine sed) NONE SEEN Normal NONE SEEN [facility] Comment on above: Performed By: #### F ERR, VITAD, FETIBC #### [facility] [address] [place] [address] Dr. Catarino Curran Epithelial cells LM Ql (Urine sed) RARE Normal NONE SEEN /RARE [facility] Comment on above: Performed By: #### F ERR, VITAD, FETIBC #### [facility] [address] [place] [address] Dr. Catarino Curran Glucose Ql (U) Negative Normal NEGATIVE [facility] Comment on above: Performed By: #### F ERR, VITAD, FETIBC #### [facility] [address] [place] [address] Dr. Catarino Curran Hemoglobin Ql (U) SMALL Abnormal NEGATIVE [facility] Comment on above: Performed By: #### F ERR, VITAD, FETIBC #### [facility] [address] [address] [address] Catarino Curran Ketones Ql (U) Negative Normal NEGATIVE [facility] Comment on above: Performed By: #### F ERR, VITAD, FETIBC #### [facility] [address] [place] [address] Dr. Catarino Curran LEUKOCYTES SMALL Abnormal NEGATIVE [facility] Comment on above: Performed By: #### F ERR, VITAD, FETIBC #### [facility] [address] [address] [address] Catarino Curran MUCOUS NONE SEEN Normal NONE SEEN [facility] Comment on above: Performed By: #### F ERR, VITAD, FETIBC #### [facility] [address] [address] [address] Catarino Curran Nitrite Ql (U) Positive Abnormal NEGATIVE [facility] Comment on above: Performed By: #### F ERR, VITAD, FETIBC #### [facility] [address] [address] [address] Catarino Curran pH (U) 5.0 [pH] Normal 5-9 [facility] Comment on above: Performed By: #### F ERR, VITAD, FETIBC #### [facility] [address] [address] [address] Catarino Curran RBC 0-2 Normal 0-2 [facility] Comment on above: Performed By: #### F ERR, VITAD, FETIBC #### [facility] [address] [place] [address] Dr. Catarino Curran SPEC GRAVITY 1.025 Normal 1.005-<=1.02 5 [facility] Comment on above: Performed By: #### F ERR, VITAD, FETIBC #### [facility] [address] [address] [address] Catarino Curran UA PROTEIN 100 mg/dl Abnormal NEGATIVE/ TRACE [facility] Comment on above: Performed By: #### F ERR, VITAD, FETIBC #### [facility] [address] [address] [address] Catarino Curran Urobilinogen Qn (U) 0.2 {Jake'U}/dL Normal 0.2 - 1.0 [facility] Comment on above: Performed By: #### F ERR, VITAD, FETIBC #### [facility] [address] [address] [address] Catarino Curran WBC 10-20 Abnormal NONE SEEN [facility] Comment on above: Performed By: #### F ERR, VITAD, FETIBC #### [facility] [address] [address] [address] Catarino Curran URINE T PROTEIN CREAT RATIOo n 08-17-2022 Protein (U) [Mass/Vol] 157.3 mg/dL Critically high <=12.0 [facility] Comment on above: Performed By: #### F ERR, VITAD, FETIBC #### [facility] [address] [place] [address] Dr. Catarino Curran UR PROT CREAT RAT 1.[address] [facility] Comment on above: Performed By: #### F ERR, VITAD, FETIBC #### [facility] [address] [address] [address] Catarino Curran URINE CREAT 147.50 mg/dL Normal 20.00-300.00 [facility] Comment on above: Performed By: #### F ERR, VITAD, FETIBC #### [facility] [address] [place] [address] Dr. Catarino Curran FERRITINon 05-10-2022 Ferritin [Mass/Vol] 147.0 ng/mL Normal 8.0-252.0 [facility] Comment on above: Performed By: #### H H #### [facility] [address] [place] [address] Dr. Catarino Curran HEMOGRAM AND PLATELon 2021 Hematocrit (Bld) [Volume fraction] 38.9 % Normal 36.0-48.0 [facility] Comment on above: Performed By: #### H H #### [facility] [address] [place] [address] Dr. Catarino Curran Hemoglobin (Bld) [Mass/Vol] 12.8 g/dL Normal 12.0-16.0 [facility] Comment on above: Performed By: #### H H #### [facility] [address] [place] [address] Dr. Catarino Curran MCH (RBC) [Entitic mass] 33.9 pg Normal 26.7-34.0 [facility] Comment on above: Performed By: #### H H #### [facility] [address] [place] [address] Dr. Catarino Curran MCHC (RBC) [Mass/Vol] 32.9 g/dL Normal 29.9-35.2 [facility] Comment on above: Performed By: #### H H #### [facility] [address] [address] [address] Catarino Curran MCV (RBC) [Entitic vol] 102.9 fL Critically high 81.0-99.0 [facility] Comment on above: Performed By: #### H H #### [facility] [address] [address] [address] Catarino Curran PLT 345 103/ul Normal 150-450 [facility] Comment on above: Performed By: #### H H #### [facility] [address] [address] [address] Catarino Curran RBC 3.78 106/ul Critically low 4.20-5.40 [facility] Comment on above: Performed By: #### H H #### [facility] [address] [address] [address] Catarino Curran WBC 7.9 103/ul Normal 4.0-11.0 [facility] Comment on above: Performed By: #### H H #### [facility] [address] [address] [address] Catarino Curran IRON AND TIBCon 05-10-2022 % SATURATION 25.8 % Normal [facility] Comment on above: Performed By: #### F ERR, VITAD, FETIBC #### [facility] [address] [address] [address] Catarino Curran Iron [Mass/Vol] 71.0 ug/dL Normal 50.0-170.0 [facility] Comment on above: Performed By: #### F ERR, VITAD, FETIBC #### [facility] [address] [address] [address] Catarino Curran TIBC DIRECT 275.0 ug/dL Normal 250.0-450.[address] [facility] Comment on above: Performed By: #### F ERR, VITAD, FETIBC #### [facility] [address] [address] [address] Catarino Curran PROF 14(COMP METB)on 022 Albumin [Mass/Vol] 3.8 g/dL Normal 3.4-5.0 [facility] Comment on above: Performed By: #### F ERRJONATHAN, FETIBC #### [facility] [address] [place] [address] Dr. Catarino Curran Albumin/Globulin [Mass ratio] 0.9 {ratio} Normal [facility] Comment on above: Performed By: #### F ERR VITAD, FETIBC #### [facility] [address] [place] [address] Dr. Catarino Curran ALP [Catalytic activity/Vol] 96 U/L Normal 46-116 [facility] Comment on above: Performed By: #### F ERR VITJUJU, FETIBC #### [facility] [address] [place] [address] Dr. Catarino Curran ALT [Catalytic activity/Vol] 14 U/L Normal 14-59 [facility] Comment on above: Performed By: #### F ERR VITAD, FETIBC #### [facility] [address] [place] [address] Dr. Catarino Curran Anion gap [Moles/Vol] 9.9 mmol/L Normal [facility] Comment on above: Performed By: #### F ERR VITJUJU, FETIBC #### [facility] [address] [place] [address] Dr. Catarino Curran AST [Catalytic activity/Vol] 11 U/L Critically low 15-37 [facility] Comment on above: Performed By: #### F ERR, VITAD, FETIBC #### [facility] [address] [place] [address] Dr. Catarino Curran Bilirubin [Mass/Vol] 0.7 mg/dL Normal 0.2-1.0 [facility] Comment on above: Performed By: #### F ERR, VITAD, FETIBC #### [facility] [address] [place] [address] Dr. Catarino Curran Calcium [Mass/Vol] 9.2 mg/dL Normal 8.5-10.1 [facility] Comment on above: Performed By: #### F ERR, VITAD, FETIBC #### [facility] [address] [place] [address] Dr. Catarino Curran Chloride [Moles/Vol] 104 mmol/L Normal 98-107 [facility] Comment on above: Performed By: #### F ERR, VITAD, FETIBC #### [facility] [address] [place] [address] Dr. Catarino Curran CO2 [Moles/Vol] 29.5 mmol/L Normal 21.0-32.0 [facility] Comment on above: Performed By: #### F ERR, VITAD, FETIBC #### [facility] [address] [place] [address] Dr. Catarino Curran Creatinine [Mass/Vol] 1.79 mg/dL Critically high 0.55-1.02 [facility] Comment on above: Performed By: #### F ERR, VITAD, FETIBC #### [facility] [address] [place] [address] Dr. Catarino Curran EGFR-AF MARSHALLESE 34 mL/min/1.73m2 Critically low >=60 [facility] Comment on above: Performed By: #### F ERR, VITAD, FETIBC #### [facility] [address] [place] [address] Dr. Catarino Curran EGFR-NON AF MARSHALLESE 28 mL/min/1.73m2 Critically low >=60 [facility] Comment on above: Performed By: #### F ERR, VITAD, FETIBC #### [facility] [address] [place] [address] Dr. Catarino Curran Globulin (S) [Mass/Vol] 4.1 g/dL Normal [facility] Comment on above: Performed By: #### F ERR, VITAD, FETIBC #### [facility] [address] [place] [address] Dr. Catarino Curran Glucose [Mass/Vol] 98 mg/dL Normal 74-106 [facility] Comment on above: Performed By: #### F ERR, VITAD, FETIBC #### [facility] [address] [address] [address] Catarino Curran Potassium [Moles/Vol] 3.4 mmol/L Critically low 3.5-5.1 [facility] Comment on above: Performed By: #### F ERR, VITAD, FETIBC #### [facility] [address] [place] [address] Dr. Catarino Curran Protein [Mass/Vol] 7.9 g/dL Normal 6.4-8.2 [facility] Comment on above: Performed By: #### F ERR, VITAD, FETIBC #### [facility] [address] [place] [address] Dr. Catarino Curran Sodium [Moles/Vol] 140 mmol/L Normal 136-145 [facility] Comment on above: Performed By: #### F ERR, VITAD, FETIBC #### [facility] [address] [place] [address] Dr. Catarino Curran Urea nitrogen [Mass/Vol] 20.0 mg/dL Critically high 7.0-18.0 [facility] Comment on above: Performed By: #### F ERR, VITAD, FETIBC #### [facility] [address] [place] [address] Dr. Catarino Curran Urea nitrogen/Creatinin e [Mass ratio] 11.2 mg/mg Normal [facility] Comment on above: Performed By: #### F ERR, VITAD, FETIBC #### [facility] [address] [place] [address] Dr. Catarino Curran UA RANDOM W/MICROSCOPICon BACTERIA NONE SEEN Normal NONE SEEN [facility] Comment on above: Performed By: #### U AMIC #### [facility] [address] [place] [address] Dr. Catarino Curran Bilirubin Ql (U) Negative Normal NEGATIVE [facility] Comment on above: Performed By: #### U AMIC #### [facility] [address] [place] [address] Dr. Catarino Curran CAST NONE SEEN Normal NONE SEEN [facility] Comment on above: Performed By: #### U AMIC #### [facility] [address] [address] [address] Catarino Curran Clarity (U) CLEAR Normal CLEAR [facility] Comment on above: Performed By: #### U AMIC #### [facility] [address] [place] [address] Dr. Catarino Curran Color (U) LT. YELLOW Normal YELLOW [facility] Comment on above: Performed By: #### U AMIC #### [facility] [address] [address] [address] Catarino Curran Crystals LM Nom (Urine sed) NONE SEEN Normal NONE SEEN [facility] Comment on above: Performed By: #### U AMIC #### [facility] [address] [place] [address] Dr. Catarino Curran Epithelial cells LM Ql (Urine sed) MODERATE Abnormal NONE SEEN /RARE [facility] Comment on above: Performed By: #### U AMIC #### [facility] [address] [place] [address] Dr. Catarino Curran Glucose Ql (U) Negative Normal NEGATIVE [facility] Comment on above: Performed By: #### U AMIC #### [facility] [address] [place] [address] Dr. Catarino Curran Hemoglobin Ql (U) TRACE-INTACT Abnormal NEGATIVE [facility] Comment on above: Performed By: #### U AMIC #### [facility] [address] [place] [address] Dr. Catarino Curran Ketones Ql (U) Negative Normal NEGATIVE [facility] Comment on above: Performed By: #### U AMIC #### [facility] [address] [place] [address] Dr. Catarino Curran LEUKOCYTES LARGE Abnormal NEGATIVE [facility] Comment on above: Performed By: #### U AMIC #### [facility] [address] [place] [address] Dr. Catarino Curran MUCOUS NONE SEEN Normal NONE SEEN [facility] Comment on above: Performed By: #### U AMIC #### [facility] [address] [place] [address] Dr. Catarino Curran Nitrite Ql (U) Negative Normal NEGATIVE [facility] Comment on above: Performed By: #### U AMIC #### [facility] [address] [address] [address] Catarino Curran pH (U) 5.5 [pH] Normal 5-9 [facility] Comment on above: Performed By: #### U AMIC #### [facility] [address] [address] [address] Catarino Curran RBC 2-5 Abnormal 0-2 [facility] Comment on above: Performed By: #### U AMIC #### [facility] [address] [address] [address] Catarino Curran SPEC GRAVITY 1.020 Normal 1.005-<=1.02 5 [facility] Comment on above: Performed By: #### U AMIC #### [facility] [address] [address] [address] Catarino Curran UA PROTEIN 30 mg/dl Abnormal NEGATIVE/ TRACE [facility] Comment on above: Performed By: #### U AMIC #### [facility] [address] [address] [address] Catarino Curran Urobilinogen Qn (U) 0.2 {Jake'U}/dL Normal 0.2 - 1.0 [facility] Comment on above: Performed By: #### U AMIC #### [facility] [address] [address] [address] Catarino Curran WBC 10-20 Abnormal NONE SEEN [facility] Comment on above: Performed By: #### U AMIC #### [facility] [address] [address] [address] Catarino Curran URINE T PROTEIN CREAT RATIOo n 05-10-2022 Protein (U) [Mass/Vol] 69.7 mg/dL Critically high <=12.0 [facility] Comment on above: Performed By: #### F ERR, VITAD, FETIBC #### [facility] [address] [address] [address] Catarino Curran UR PROT CREAT RAT 0.[address] Normal [address] [facility] Comment on above: Performed By: #### F ERR, VITAD, FETIBC #### [facility] [address] [place] [address] Dr. Catarino Curran URINE CREAT 110.97 mg/dL Normal 20.00-300.00 [facility] Comment on above: Performed By: #### F ERR, VITAD, FETIBC #### [facility] [address] [place] [address] Dr. Catarino Curran PTH INTACTon 01-19-2022 PTH, Intact 46 pg/mL Normal 15-65 [facility] Comment on above: Performed By: #### H H #### [facility] [address] [place] [address] Dr. Catarino Curran FERRITINon 01-18-2022 Ferritin [Mass/Vol] 177.0 ng/mL Normal 8.0-252.0 [facility] Comment on above: Performed By: #### H H #### [facility] [address] [place] [address] Dr. Catarino Curran HEMOGRAM AND PLATELon 2021 Hematocrit (Bld) [Volume fraction] 37.0 % Normal 36.0-48.0 [facility] Comment on above: Performed By: #### H H #### [facility] [address] [place] [address] Dr. Catarino Curran Hemoglobin (Bld) [Mass/Vol] 11.9 g/dL Critically low 12.0-16.0 [facility] Comment on above: Performed By: #### H H #### [facility] [address] [place] [address] Dr. Catarino Curran MCH (RBC) [Entitic mass] 32.0 pg Normal 26.7-34.0 [facility] Comment on above: Performed By: #### H H #### [facility] [address] [place] [address] Dr. Catarino Curran MCHC (RBC) [Mass/Vol] 32.2 g/dL Normal 29.9-35.2 [facility] Comment on above: Performed By: #### H H #### [facility] [address] [address] [address] Catarino Curran MCV (RBC) [Entitic vol] 99.5 fL Critically high 81.0-99.0 [facility] Comment on above: Performed By: #### H H #### [facility] [address] [address] [address] Catarino Curran PLT 366 103/ul Normal 150-450 [facility] Comment on above: Performed By: #### H H #### [facility] [address] [address] [address] Catarino Curran RBC 3.72 106/ul Critically low 4.20-5.40 [facility] Comment on above: Performed By: #### H H #### [facility] [address] [place] [address] Dr. Catarino Curran WBC 6.0 103/ul Normal 4.0-11.0 [facility] Comment on above: Performed By: #### H H #### [facility] [address] [address] [address] Catarino Curran IRON AND TIBCon 01-18-2022 % SATURATION 27.0 % Normal [facility] Comment on above: Performed By: #### H H #### [facility] [address] [place] [address] Dr. Catarino Curran Iron [Mass/Vol] 69.0 ug/dL Normal 50.0-170.0 [facility] Comment on above: Performed By: #### H H #### [facility] [address] [place] [address] Dr. Catarino Curran TIBC DIRECT 256.0 ug/dL Normal 250.0-450.[address] [facility] Comment on above: Performed By: #### H H #### [facility] [address] [place] [address] Dr. Catarino Curran LIPID PROFILEon 01-18-2022 CHOL-HDL RATIO NORM SEE BELOW Normal [facility] Comment on above: Result Comment: 3.3 - 4.4 LOW RISK 4.4 - 7.1 AVERAGE RISK 7.1 - 11.0 MODERATE RISK >11.0 HIGH RISK Performed By: #### L IPID #### [facility] [address] [address] [address] Catarino Curran Cholesterol [Mass/Vol] 158 mg/dL Normal <=200 [facility] Comment on above: Performed By: #### L IPID #### [facility] [address] [address] [address] Catarino Curran Cholesterol in HDL [Mass/Vol] 43 mg/dL Normal 40-60 [facility] Comment on above: Performed By: #### L IPID #### [facility] [address] [address] [address] Catarino Curran Cholesterol in LDL [Mass/Vol] 92.2 mg/dL Normal [facility] Comment on above: Performed By: #### L IPID #### [facility] [address] [address] [address] Catarino Curran Cholesterol.total/ Cholesterol in HDL [Mass ratio] 3.7 {ratio} Normal [facility] Comment on above: Performed By: #### L IPID #### [facility] [address] [address] [address] Catarino Curran HDL NORMAL > or = 60 mg/dl - LO W CARDIOVASCULAR RISK <40 mg/dl - HIGH CARDIOVASCULAR RISK Normal [facility] Comment on above: Performed By: #### L IPID #### [facility] [address] [address] [address] Catarino Curran LDL CALC NORMAL SEE BELOW Normal [facility] Comment on above: Result Comment: <100 mg/dl OPTIMAL 100 - 129 mg/dl NEAR OR ABOVE OPTIMAL 130 - 159 mg/dl BORDERLINE HIGH 160 - 189 mg/dl HIGH >190 mg/dl VERY HIGH Performed By: #### L IPID #### [facility] [address] [address] [address] Catarino Curran Triglyceride [Mass/Vol] 114 mg/dL Normal <=150 [facility] Comment on above: Performed By: #### L IPID #### [facility] [address] [address] [address] Catarino Curran VLDL CALC 22.8 mg/dL Normal [facility] Comment on above: Performed By: #### L IPID #### [facility] [address] [place] [address] Dr. Catarino Curran PHOSPHORUSon 01-18-2022 Phosphate [Mass/Vol] 3.5 mg/dL Normal 2.6-4.7 [facility] Comment on above: Performed By: #### U LILI, PHOS, CMP #### [facility] [address] [address] [address] Catarino Curran PROF 14(COMP METB)on 022 Albumin [Mass/Vol] 3.4 g/dL Normal 3.4-5.0 [facility] Comment on above: Performed By: #### U LILI, PHOS, CMP #### [facility] [address] [place] [address] Dr. Catarino Curran Albumin/Globulin [Mass ratio] 0.9 {ratio} Normal [facility] Comment on above: Performed By: #### U LILI, PHOS, CMP #### [facility] [address] [place] [address] Dr. Catarino Curran ALP [Catalytic activity/Vol] 99 U/L Normal 46-116 [facility] Comment on above: Performed By: #### U LILI, PHOS, CMP #### [facility] [address] [place] [address] Dr. Catarino Curran ALT [Catalytic activity/Vol] 18 U/L Normal 14-59 [facility] Comment on above: Performed By: #### U LILI, PHOS, CMP #### [facility] [address] [place] [address] Dr. Catarino Curran Anion gap [Moles/Vol] 12.1 mmol/L Normal [facility] Comment on above: Performed By: #### U LILI, PHOS, CMP #### [facility] [address] [place] [address] Dr. Catarino Curran AST [Catalytic activity/Vol] 11 U/L Critically low 15-37 [facility] Comment on above: Performed By: #### U LILI, PHOS, CMP #### [facility] [address] [address] [address] Catarino Curran Bilirubin [Mass/Vol] 0.6 mg/dL Normal 0.2-1.0 [facility] Comment on above: Performed By: #### U LILI, PHOS, CMP #### [facility] [address] [address] [address] Catarino Curran Calcium [Mass/Vol] 9.0 mg/dL Normal 8.5-10.1 [facility] Comment on above: Performed By: #### U LILI, PHOS, CMP #### [facility] [address] [address] [address] Catarino Curran Chloride [Moles/Vol] 104 mmol/L Normal 98-107 [facility] Comment on above: Performed By: #### U LILI, PHOS, CMP #### [facility] [address] [place] [address] Dr. Catarino Curran CO2 [Moles/Vol] 28.6 mmol/L Normal 21.0-32.0 [facility] Comment on above: Performed By: #### U LILI, PHOS, CMP #### [facility] [address] [address] [address] Catarino Curran Creatinine [Mass/Vol] 1.72 mg/dL Critically high 0.55-1.02 [facility] Comment on above: Performed By: #### U LILI, PHOS, CMP #### [facility] [address] [address] [address] Catarino Curran EGFR-AF MARSHALLESE 35 mL/min/1.73m2 Critically low >=60 [facility] Comment on above: Performed By: #### U LILI, PHOS, CMP #### [facility] [address] [place] [address] Dr. Catarino Curran EGFR-NON AF MARSHALLESE 29 mL/min/1.73m2 Critically low >=60 [facility] Comment on above: Performed By: #### U LILI, PHOS, CMP #### [facility] [address] [address] [address] Catarino Curran Globulin (S) [Mass/Vol] 4.0 g/dL Normal [facility] Comment on above: Performed By: #### U LILI PHOS, CMP #### [facility] [address] [address] [address] Catarino Curran Glucose [Mass/Vol] 92 mg/dL Normal 74-106 [facility] Comment on above: Performed By: #### U LILI PHOS, CMP #### [facility] [address] [address] [address] Catarino Curran Potassium [Moles/Vol] 3.7 mmol/L Normal 3.5-5.1 [facility] Comment on above: Performed By: #### U LILI PHOS, CMP #### [facility] [address] [address] [address] Catarino Curran Protein [Mass/Vol] 7.4 g/dL Normal 6.4-8.2 [facility] Comment on above: Performed By: #### U LILI PHOS, CMP #### [facility] [address] [address] [address] Catarino Curran Sodium [Moles/Vol] 141 mmol/L Normal 136-145 [facility] Comment on above: Performed By: #### U LILI PHOS, CMP #### [facility] [address] [place] [address] Dr. Catarino Curran Urea nitrogen [Mass/Vol] 19.0 mg/dL Critically high 7.0-18.0 [facility] Comment on above: Performed By: #### U LILI PHOS, CMP #### [facility] [address] [address] [address] Catarino Curran Urea nitrogen/Creatinin e [Mass ratio] 11.0 mg/mg Normal [facility] Comment on above: Performed By: #### U LILI PHOS, CMP #### [facility] [address] [place] [address] Dr. Catarino Curran UA RANDOM W/MICROSCOPICon BACTERIA SMALL Abnormal NONE SEEN [facility] Comment on above: Performed By: #### H H #### [facility] [address] [place] [address] Dr. Catarino Curran Bilirubin Ql (U) Negative Normal NEGATIVE [facility] Comment on above: Performed By: #### H H #### [facility] [address] [place] [address] Dr. Catarino Curran CAST NONE SEEN Normal NONE SEEN [facility] Comment on above: Performed By: #### H H #### [facility] [address] [place] [address] Dr. Catarino Curran Clarity (U) CLEAR Normal CLEAR [facility] Comment on above: Performed By: #### H H #### [facility] [address] [place] [address] Dr. Catarino Curran Color (U) LT. YELLOW Normal YELLOW [facility] Comment on above: Performed By: #### H H #### [facility] [address] [place] [address] Dr. Catarino Curran Crystals LM Nom (Urine sed) NONE SEEN Normal NONE SEEN [facility] Comment on above: Performed By: #### H H #### [facility] [address] [place] [address] Dr. Catarino Curran Epithelial cells LM Ql (Urine sed) RARE Normal NONE SEEN /RARE [facility] Comment on above: Performed By: #### H H #### [facility] [address] [place] [address] Dr. Catarino Curran Glucose Ql (U) Negative Normal NEGATIVE [facility] Comment on above: Performed By: #### H H #### [facility] [address] [place] [address] Dr. Catarino Curran Hemoglobin Ql (U) TRACE-INTACT Abnormal NEGATIVE [facility] Comment on above: Performed By: #### H H #### [facility] [address] [place] [address] Dr. Catarino Curran Ketones Ql (U) Negative Normal NEGATIVE [facility] Comment on above: Performed By: #### H H #### [facility] [address] [place] [address] Dr. Catarino Curran LEUKOCYTES SMALL Abnormal NEGATIVE [facility] Comment on above: Performed By: #### H H #### [facility] [address] [place] [address] Dr. Catarino Curran MUCOUS TRACE Abnormal NONE SEEN [facility] Comment on above: Performed By: #### H H #### [facility] [address] [place] [address] Dr. Catarino Curran Nitrite Ql (U) Positive Abnormal NEGATIVE [facility] Comment on above: Performed By: #### H H #### [facility] [address] [place] [address] Dr. Catarino Curran pH (U) 6.0 [pH] Normal 5-9 [facility] Comment on above: Performed By: #### H H #### [facility] [address] [place] [address] Dr. Catarino Curran RBC 0-2 Normal 0-2 [facility] Comment on above: Performed By: #### H H #### [facility] [address] [place] [address] Dr. Catarino Curran SPEC GRAVITY 1.015 Normal 1.005-<=1.02 5 [facility] Comment on above: Performed By: #### H H #### [facility] [address] [place] [address] Dr. Catarino Curran UA PROTEIN Negative Normal NEGATIVE/ TRACE [facility] Comment on above: Performed By: #### H H #### [facility] [address] [place] [address] Dr. Catarino Curran Urobilinogen Qn (U) 0.2 {Jake'U}/dL Normal 0.2 - 1.0 [facility] Comment on above: Performed By: #### H H #### [facility] [address] [place] [address] Dr. Catarino Curran WBC 5-10 Abnormal NONE SEEN [facility] Comment on above: Performed By: #### H H #### [facility] [address] [place] [address] Dr. Catarino Curran URIC ACID SERUMon 01-18-2022 Urate [Mass/Vol] 7.2 mg/dL Critically high 2.6-6.0 [facility] Comment on above: Performed By: #### U LILI, PHOS, CMP #### [facility] [address] [address] [address] Catarino Curran URINE T PROTEIN CREAT RATIOo n 01-18-2022 Protein (U) [Mass/Vol] 26.5 mg/dL Critically high <=12.0 [facility] Comment on above: Performed By: #### F ERR, VITAD, FETIBC #### [facility] [address] [address] [address] Catarino Curran UR PROT CREAT RAT 0.[address] [facility] Comment on above: Performed By: #### F ERR, VITAD, FETIBC #### [facility] [address] [place] [address] Dr. Catarino Curran URINE CREAT 54.03 mg/dL Normal 20.00-300.00 [facility] Comment on above: Performed By: #### F ERR, VITAD, FETIBC #### [facility] [address] [address] [address] Catarino Curran VITAMIN D 25 OHon 01-18-2022 VIT D 25-OH 25.4 ng/mL Normal [facility] Comment on above: Performed By: #### H H #### [facility] [address] [place] [address] Dr. Catarino Curran VIT D RANGES SEE BELOW Normal [facility] Comment on above: Result Comment: <20 ng/mL Vit D deficient 20 - <30 ng/mL Vit D insufficient 30 - 100 ng/mL Vit D sufficient >100 ng/mL Potential Toxicity Performed By: #### H H #### [facility] [address] [place] [address] Dr. Catarino Curran Coding Summary.on 03-12-2021 Coding Summary. CD:[id number] Gh0bWw +PGhlYWQ+QS1FIROdW82myRUar A9QX2mENT5WBYSHHALRWD4FBG7 xmZM2LQbaZ4NnjoRg LnkdwDCrDH29YZt6FNJ8vBsqDE esiU0wzDAnJ8z5MiAsYX19uE94 KZgxHTJpEtL9MkXjmhfufKFa Q6rwCoPwbYKqJmn+PHRhYmxlIH kaRQCdEOjxLUCcTjHfuRdbSQ1c Jp6nKWYjUICypEbmoBYyVbTk w7jiWUKzDQnnLV9weOwjP5DmxZ K3KOOrt4k9Ic87iXH+PHRkIHN0 rTslZSmqv571CmJyv1weCDN1 pNJvBVktEYA2B42bs2D4YUGyCP CfZMU0wFF3lM0qpLpnrbkeC6Ml cLMgIvZ4TSM6zRTttZ7awHmx mdlmmY4pFkk+Y73HAQ4HJUFCBN 5BEdl6I5WvKyumiEX+EA90HEWv LG86eYVpvXLgb2lmpIj4TlWg XPGlDGD0jFiyWTtyg8GnTLEwP7 6icFKyp7T3SDTyvHllcXHiSvWb rNU6rW0aEBgnlrxxb4tsghve Dkwub2elua62aF36G86sCShqJU IvKMS1YCVbRWBseJterl3mfP6m Ii8+PQqpx4vew3decUi2OfAx HFBoakOehPijXDB7m6JpXm14W1 EpyViwd0YjJpv8fe33zKNjf3U7 wAG6TEssBEZqrA0zPVoaEyJ6 EFUtAbAidR77xQUwOUhzYr0beE pxmNsuGY8yQUTxwzxbNAXihX6s CLKdtTPpaHkzOO4gCCIiezyl y285GcSqZMA1YFJzpGBsW3AspG 5bFyNpVWUgRSLrT8QimRFaAKad L484TBqqCrO9RMYyakLpP9Px LCCvvIncZgU6q6B9Ke7Nd2Ltlo jqFDW8FFxbQDX4NuH4OsQlJeP7 R3OiKgt9UPXrdHvcBF9yX7Pd XWYzrpgkhqfuuWW2IWMyREXijK 14vYBwBHzhXz6pm2U5n258WQDz UFEqeU08Dz7evXjeYOXcgWFA nB6gxvyjq3tspfbjIqEjCOHgTL j4GNf1PLUmbMjfIsSyHAU7MeY8 HTO8aZDzkC4heMjlrxbftZ0v Oyc+U54feK9mLYQ0KXO0fpntLX HrjrWxNE93BD91M2WlHbxzeHDs bGU+WDGmraGyfSyoGQ6wVbLb r5ebo8BgJLlyU7XfFUDyFFpkOv u3ZRYcHDY5lNM5hE9xEUTnGZwi d3T1lGP4Y1NcgaTxpz1ji6ib AUHgNEvcO85hbKNiu0F4ENOcwW W3VMEdyFxgOtIsaY23Dfa+PGNv lPlxj9OzFijpr6toy4xbeLt1 LgAkOFXxyvGfkOimVTS2b6IeZw 71S67jRReoEUCzEBFwXSWiHNTi eRnmpz2wxQ7pHv9+PGNvbCB3 jVG2bC1aPCFiHxY5GGouW608Fb YqxFPrBmvva3api4manMj2EsCz AUXrqlCviWowSTK6v7DuBk26 V26xVQfeDEVwSJUoGROfJDNgeJ oczg8bxH3bRl5+FS8ij1xith58 kQ63gGQ+JYXhYCU1qCmmFLgh KEHvaU3zHLkrSiP5TBFtMmZuiV 11lPJqLZvvSz6xwSldqQejOS9m SZHyewcvm605FrBir4ppEBWo wFGbXSjdWPV8B53wx4H9XPJwIV MiGLZ9oCV3bD8ccHaqbmlqoLDa lZxcapTiqPkfWSdkCSauD658 IHRvcDsnPlBhdGllbnQgTmFtZT r9N2OvRai9VOUvoMqdBN6ywDYh QKntFo9qqFwesQbmRF2fFHLf tigxh733KfWuz8fwAHUpaIUrZO gaINO9X65gl4V5FKJtKYUrPEC4 uYB0wG2tqLismdibfATnbEfe waOlqLmwJKvxVBysR132RGAzyW auLrZrnhGyLPZksIK1DS96FF11 fEWao4R6bXS2Z7DtOOHjpakc batkjUO4KWSlNOIdcI35Ux6gwC tzGe7hXPLaPZP3THCtdFRkG9Fg sV4wJmBdHTUtPZUuG5ByzUPa FRyfH429VZesNhM2KWXrbiZsV4 VgTZCzmTqbTsM1b8H9Wk2FH6D4 PD87VN99jBYkl6U1hNM1X5Qr ELDkrkazfbrtvYF4LQSxJCLgjY 02Ho5zoVkqPn3sFICoHKV1ZJDc jDYtC4XbiQ7xOqUhFDOdFAPs X2AfnWThRWwnB592AGhaQeS6MP GmooHfM6OwFNQhgJgdByS4p6Q5 Aa6BEBg3LC81JK88fBJfl5V3 aZH3L1JdJOUbyxzmhakxqDM0LT QaXVQceL92To4xdNhuXg0vMLLt WHX2RIQqmVXqZ3GogO2cLqQv OUKmHIIcL1SgvJXiPDgnJ103SI smWfQ5EAQqpdHcJ8RuWGLgqRry MsG4m2C3Cs9QVSEyYZ03BGG8 dNQ0KM33GJ33R5QpHivuqKDzwM U+PHRhYmxlIHdpZHRoPScxMDAl SoQvuEkgLQ8aYk5dSVJiNODw jBdzwKVvLpItx0cpGKMaOSdxYN 2ajGonE8ZzmGX5BOZlg6x5Dy73 A63vZ9XxbJF+OTZosBO5gDK4 yE4lOiIzUsU9DMvtH198IlChwF JwMvoyx2zsp0aphJx1NlM8VRCz fbAxvVpiKYF4h7QhNn06Q83i IHdpZHRoPSIxNSUiIHZhbGlnbj 1rfA0uAv2+ZRQpqAB6aNB0hW9y WzMuAjJ6KDcuL663CnBvrXFi Nhiei7ofg0eazIm4UqZeKAJlig CagXvqCGL6s0HmPn85A1AhzTxg q6IdUsv6pc09qLVpd5Y1fXN1 Z0LjDZRzcybkbBUehZnrOG4vMR RlrppaAJFjcE2jMIYnX1p5QtLo KhL2FShxZ6XdewD5FAKafPTs ZMkrKJQ8W45ta3U5ILQaQATdHS X1cGY4xM2znIsveioasMZtwGbz bcUtwYxwDVdqTXryE276UDOa sQbgZXAuiV9qJFLzqZRfjWduZE 5qZCThxdhyQmqFFy1VAMGZVGNs WTGKJ1SWRPS1C9YeBtv2SRFu xWkxUU5dwVXdKZboTg1srJqsvK gkBC9mIVJtigxpGYNoiW5iLAAj dRCxcXqsHL1tXNHkimlwh215 ZdAnHLG0PULynGMuD6CnpN3wUc AzSCXjHZHlW8MdbINlDMuxY313 POtaLsB8FRChbjFuK2LoVNBa rOmjJxW0y4I2Jd2oVT2xZF7hGF SdUI46OK02pOZug2B9fZX1D4Fq CSCtgzgmzszxgAZ6XFRnFHDy mT42bNVkMXjnHb2sk0Y0d432NM XsYOWkjW43Uf4luOaxHPMvzOMI jF0pvczar9fgpzdzCxBfDAPe VAp6FUv9WMCghPjjHkGlLUU5Qc U7XSS5iHDlmB2ozNjzcqrdhJ2d Oyc+NwAvFFGaqyH5V3BlGvt0 SNKkjWwqJZ3qyNQhZBloGx7cuP vwqBisCI8hFYAqfoelWKRjjV2q ZJNwkQHszAjmXO5nLOSyccyy n125YwTyOIO1SSOhwREwR6VulL 6dAvZeXARdOQQtK7BjaSRbBBop D496WZgbLtN4HTZoahGvT8Ag OGZjzKhqKiB9h9E0Wr6ORF7wtT P5M4OlNry6URBkzSzrTY7mxQFd BDwcZn9yfGhxqGpsCC6gQGFr nqpkFDAqdB5hIZHfiSCfgHsfVA 2yZVDmrfrzs562KrOsPGU4FNJo lVNxX0ZecG5bYhQsGOUyUWYi C7OcsMKfAEdxC864DFtwVwI5EN YfyxXnF4LkLQEnaGeoXjP4f2K0 Td9NcSXrMAAiCP35FI29AT33 G4XxRmrklSVkhHH+PHRhYmxlIH loPFFpGRsxNGFeNyYxgJvuPX6z Pb1nWFEhEQPneKrdrYTeOuQx i2wgJHZuOZwsXY0foAuhH3JjwV R7TAIpv1v9Tj97N27eD5VhxBX+ BVSifNG1uRX1wP0zCtNyXbH5 XTepP233YsMhnISqXfsjd7zaq7 tubOw3HjQcSWHnhjNqwWpkYKM8 m0PkXr89N05kDTpbHPOqBIGk IJLqRROtsCfslk3qcY4mFs4+PG JqbXS9cYZ1oS9rWaNtNlF0KVkx S074XhKwmHImKzjhM60mO7Fv dXA+PCBoMse8WXSeoAmhUV9uyL YnHZzsTi7xPJR4YzUoKvRhHEzo M9VbEIYmjjehdgkpkHZ4ARBb YYBufB69Cs2nvWgjFf7cHXYmAD V1TVOljUDfI1RbkL8fVuJxWHLm XNDjP5JpuHUlDOhtS480PQna RbI5HLBzhlAkW5HrBVNuaUwaOy H9f9E4Kc4JvNxixMTnYF8nZaAx NHo5N3UlUma9YJYicTeeFK3y gLNiIKhbMw2xjIgryJyaCN1qHD Eeklpjx218RbJsu0chAUEsdUQd UCfqAYP0Q59zz2A3FSAiMWKb FLH0jWE4zE9maVfxtogbkDOkeC sxwtVwcXjtPXerUTfaC533UTFf zYioNeKOAdn6O5XbUra1WMOi tNxhIQ8zsWJrLBlbMa2hcBznpJ pnUF9lUDMygpryd108IxWnw7ht QBThfNFtKYyuECS7V80uy1H8 IZWeEUUhQXC1tGU9jL3rcAzprm ogbGVmdDsgdmVydGljYWwtYWxp Y313LPTnaUzfGt1MSuf5V1Dg Oii8DYWxlBqaXG4pfAErBBzqRe 8woXlelLkkQS5oUADdrwosk557 MqYoh7ipNMFapRPbAPusGWQ8 T65ft3R1DCRrWDXkTMP9wPM2jU 1hbGlnbjogbGVmdDsgdmVydGlj VYhtKPdtE686SXQirKvdFrMn eWVyOjwvdGQ+LA63ja93R2FxAo mxTrw4JNPtKTH2zTB1rH1qJWIu TFpiz8W6pRS9R0MfteJyqq3l b2xs (more content not included)... Normal [facility] CT Head or Brain w/o Contras ton [...] Raulito Chavez MD Transcribed by: KOBI Technologist: [facility] Consent for Treatmenton 02-13 Consent for Treatment [id number]#1.00CD:127 [facility] Physician Orderon 02-26-2021 Physician Order [id number]#1.00CD:127 [facility] Pre-Certification Formon Pre-Certification Form [id number]#1.00CD:127 [facility] Coding Summary.on 12-11-2020 Coding Summary. CD:[id number]:[id number] Gh0bWw +PGhlYWQ+ZM1FTPAtG87liQAdq C1UX6jZWA5WXMNKFRNMMP3MAW7 dgWM4QJncB2SyjhPh DzptyPUtQU09LWt4JNN8fYpiKL eiwC7emZQkG2j7IrOvGK87zW64 NYfwBLCzHlG8UrOizirhxFOc W4llFfAxoLJbAfe+PHRhYmxlIH kcAIWuVXgsUNRqGtPjfClwLM6c Df1nIDNoBSTdjBovzZDcMuFg e3miIPJdKRtjBN7feApvV2YnsH G1ECJeu6q6Pt04jOF+PHRkIHN0 oArjQNzzv705YlVgy3hgZTF6 mENwPPjrQEM4N74ud4P7IIJsTL OcYTN9wJZ4xF0tyRitedfmG6Pn bSAaPwP8NWG7vYOofL9hxWbc xdvnhO3cIyu+I14XAW3VZNMKTX 4BCnr6G3RnZdjhySL+OU25OSPh OU91sQLmjZSbt7qhdCx4PtYc LTNqWZH6xZtoZIdyo9UyRFAvT0 1xoHAcz5E5IJBxwGdqyAQkEmKo iBK1eJ0iQKgnlesnj3cnedkw Jzkld7ietw86wL49F74aHUofVO MnEIQ6SQUgIHVtfWhikj8ntW6a Ii8+BXlyt7tov4emoXd8EpGd TULaasBzsSvtJNT2q3XjPy48G3 NfbNnwe3VaEaf6qf89lOAee6L1 tNR0ZWbxUFMksA5kTTlbVvJ9 AXOeVgHpgR12sYGfBPigSx6ezG krzWyfCK1hBBRkvlihCLZozM6r DUBfmNOonLtbAT7nOCEpwdml h539DuHqFDU9UIJodKSvN1MqcF 5pKuKpKAVlDBBgN3XisJKiGEhx V587BYtaIdX9CHPlvzScC6Lw ECZajUzcDpF0p1O0Oe2Zk9Lwjn doYSO3QGvyFFF4VgZ1LeBzGfX9 T1OrUwy7ZIWvqOobJG9wK5Gt BRUfzdwnnpnxrXK2GDXkAWYdqC 56oGYpBRvbRj5gz9E4g960GJMr OLQmuX51Vz7giJpgEIJzlDIU fZ5nzrowg0qkuhqmHhBcRLNyCT e0KIf4KWHyzAomJzHdFOE1VcZ6 DLQ3dBDubS4uoQaschxjjQ4v Oyc+D28hbR4vMWT5UBJ2lmrfSC ZbjhLvCZ84JK71V7WnOzemwBCz bGU+IAByigNwxYfrCB9rTlKu x4nht9NaMHzyJ4KgFDSkMNhnOd t3MEQqCQB1dTJ1yF9gOUHeJJdr k0U1vMW3Y2SahkVicv1ym2yv NEKoDDimR06ssEMtf1O2YMUwaA R9RAEheCjiCiFxiD24Gou+PGNv lEbnu2UdIdxry0pht0felFc8 TaEmKZCsnaUzaBpaKCE1z3AnNx 56R26fWDzwUSCmYSMwWVMyHCVk lMcfyv4krC6zDv3+PGNvbCB3 yNP6gB1dOLMeNrG7YQixK942Ff NmyUVqCpsfm7qoi2qgnNx9VnRo VCAwosUnkHvwDWK2i9FsAw96 G98aORcyAIUlWBMxRTJdCSAtyI dlev0pnQ7eUi6+RX1cj1jwnq01 xF51pNL+KOPyTTG3lFjwSPyg YZVitC4tSPhwYgN1QVRcAzEwrK 25gLIwJExxLv4fdHlbmVgaIR8e TODnlrokc331UdNar8wjPJGe hKJxWDadMKV4H21fh1E3HTOgBJ IvPFQ7nRA6lM1sbQwkyridhGRb kLkftbOghAibJPddRNdlX465 IHRvcDsnPlBhdGllbnQgTmFtZT h5P0RmYdy9SUShtMeiDZ9iqNYn RSktWr2xnOwlmVfvEO6tVPDr eulei606VfZoo7qdUGIqoEZdDU gfQFA1K76rg1K1TBTtMAJnXLH3 wOU8fC3arSzezcgsjPHueGco luWavIbsIQiwMIjlT012UJBhmW dyTwYrztMkHGYhlHI9YM51EP57 jMKob3E2rAI9J5CeQCZqtqvt klxgpYU2MEUfHEWvoN79Ag1cbQ uqKm5iCYDrKPF6XVEczFIaO7Ph gY0qSmAcPFDtBDJsW3MwqMSf IZltG504IVyjXnD6COBcauUgC8 PjDVXvoOjxKsB1t1B2Hi9WS7M4 AK74NW44fZSrd1W9qRF6P3Qt DFMeyeiwibxlrBO4RPEjYBVouA 22Xa8uzFgnKu6wWSDcHKU6FBMm pWIhK4VjsU0yZcMkQVHcUZOn X4DakFVzFJxdC041PAglOoO9SN IqlvNyX1RqLMNrdKvwCxE2p6X0 Sx5JZQl8IN72AM49rRHsb1S1 wYX2S7ZqYDKgniizoehvkNK2DQ WdMWJugK38Eq5shDdoDz7bWONt VHH1DNOorSPdC7GggK3wUdLm NSQuPZLmJ0XudPWaVBizX932AS feNzK8LFSkdrWxR0XwAKWpkEpl NuT4t3J7Tb9TTUKhVA25VUS7 lWK7FF63PA16X1DpAuvqwPCraV U+PHRhYmxlIHdpZHRoPScxMDAl GlLimJadTN4jKk5rLXOiEBEi wKvhbAVdUdOna3zxADCxPAjzBU 3xgJyrC5AhzNI5OXLpa2v6Mr62 L34kQ5PooIO+MMIhjGO7sND1 vG5uTsNrUlP9HIdaS513WoEpaC HwZtwto8xef3ktrTz3DxJ2XRTv ztCgzVufOAA3a9SmLu80F23j IHdpZHRoPSIxNSUiIHZhbGlnbj 2hsD1kBy5+VPNnoDG8rGS2rV3h VbDfHtD6ELgaO711PuMnyGUv Crlul8pdz7lkuQg2WcHrSFTwzl FtsKigNLP0i1HkIn62S7JxiKja a8ReUro9cb39bFPiq9I6rPB1 U5UbOLYlkibtxADzqPcwYK2xCO UkdjtrBTSpaF0yOZVbD8m7PsEi IcR9YUjnP6WrwyH4DLSujPAb PVolWDB2P68ij1E2AOKbEVRoBV Q4pWX2fS8lxWeohltdrLThrUek cbPcdBdmLRvsBZmhD848NHRe zBbnZWDooV4pUPOpaFBpySllVY 8xATDivwcxXvbIDx3KTIQKBSBz HTUDR7XSCWS9J2SfEwr8NVAt tYqvEC7xnWJjTHpkYy1uvItsfY xaEH7pALFubtbcOWKftI7uXZQf pPUwrFywRX3yRGFdnecnd723 LuRfEUF1OOVxbZWqD0OzvO4nGj UsGJSdXGIwI8UwvLQmMXgrW581 AAnnSzA2IOUtgfPyQ4HsMWXp wTmwKrG2j9Y4Tx1tDV3sHZ4lNS JxBA34RT47jSGww8L4nRI8O0Bj SUKtlzvutvhnsOC3FNGhBTVz aD38iFBfVDboRk1jk3F5q450KN DkOOUsfA14Ld5lnXgkRBFeiEHH hH7encysb4laxnzaDsRcAHBd ZGn7PAi0MBKotEqyRsPjCVP8Fz I9NXJ4bGNkeJ4ptUaxvedmxO7u Oyc+FeByAWQswpD8G3SwXqq1 LGVgiAgyTD2lzPRjMCzoLw2lwM ycaGutIG8qIPVkrmajIUMulI4v DIVdkNZvbPygDJ0xBZZtshfd t458BeUmAEE2ZBEpjWElD2XcpG 4kWuGxBCRgOTZbN5MvyKVdELjo I350WSubGoW6MSQaiqAvI5We AKPzsKamMwN9w6V7Xh5ZZW8mdH M5V0YqGgr1WENudHncBU3ncOHm OPtdRm6cvExicDreBV3gGYAs qehrPUYrwX4pFFTgkFQejNzpUV 1uNOQczzbjk107UbLtDWF6OTMv sYKiV7MyxU0gVqWmSWBcPDKd M6OfoQYhBOgsT610TVtuUgK5TG PnicNoJ8SgZFSngCzfBdK6n4T4 Mv8FdDVtCTUrMR97BW82VR15 J6VmPjoeeXIgsBL+PHRhYmxlIH paAGVnKSnjCFQlKtXzxAckES7l Gk3cDBHiWTVmrBirjEAiFnMg y1kmXHZtNSajJQ9wqBvoT7RfxF S5BRDoi5g4Ia21N90fY0HpvOZ+ RIVmzBW2hNY4pC9mHqXtTxI0 AAroQ244FuUauBLlEnoag7hix9 zrrLq7KxXpODMkldVlaEytSFJ3 l3OnFk13M23ePUflTWIxRUKc MENoJJReyDfopf3waW9oXm9+PG ApaKZ9fST3aM7fFbJmCbM0TZoh E029FxIajNZoRvzmG18nG9Ej dXA+TLCkLrm0NQLtzLstKA3vwB JhMHzmOz4mLJY0OiUnVoPtAMjw G6BbSWOkrdhoonxlnCC8EGEx KDJdzD95Fr2qzYqlIc2kTMWtIS Y9FIGycOMwO9FxfQ9sEuKdUVAy IKJgE7SvvBTlDFonR199NRan BfG1XLTbpqWaD8BoXRAzhZxnTl P5e4U6Gm6NnEubcZRaCH8pUwXy CYj0I7FeFwi6NXQxfDuvRU3f jYVoCMfjLr6lhXlomSdcIN1dYP Fmpzogm932CjVxk8piJRNskRZt MVlsREP5D70yz3S3UPNfNIQn ZPY3aIR2eI2hsDvakeuxsYHhhK yoliKbjZrzVPpzBWmoP605VLSo vTxiAaVRWci7C0KdGol4ZWQt pCmhSH5wdMRzTHfsVq9zyIdanC frRZ3qAHUphpcyc169GlSxq0ib ZQHvoCShGMprBCG1N23kl3C7 AWVsIAAsKBS6vGM9uV3ueCwdpr ogbGVmdDsgdmVydGljYWwtYWxp J734RTMinQyhEw6DOth3F2Rf Irv9DIPayQodUL6dlROqXQywEe 8heTlajQiiJK6tHZCxisdsu350 MmXix6wpXJJdaLXpNNnpKJG2 R97ub1E4GKAuOMCvMER8gOX2eR 1hbGlnbjogbGVmdDsgdmVydGlj VAinBOsoA315RRTczHfiMyLx eWVyOjwvdGQ+QW81ky43V4RtDc buTue3TNQuZRJ7dQQ2iT8sMJYi JHqwf0E9lAE3O9NkqfPbue9c b2xs (more content not included)... Normal [facility] CRPon 12-03-2020 CRP [Mass/Vol] 4.7 mg/dL High <=1.9 [facility] Comment on above: Performed By: #### 2 [id number] ####[facility] [address] [place] [address] Consent for Treatmenton 11-14 Consent for Treatment [id number]#1.00CD:127 Normal [facility] Physician Orderon 12-03-2020 Physician Order [id number]#1.00CD:127 Normal [facility] IntraOperative Documentson 0 11-10-2020 IntraOperative Documents [id number]#1.00CD:127 Normal [facility] Coding Summary.on 11-07-2020 Coding Summary. CODING DATE: 021 FINAL [facility] STATUS: Home (Routine DC) PAYOR: Medicare ADMIT [...] CphT Date Saved: 11/07/2020 11:36 am Normal [facility] Coding Summary.on 11-06-2020 Coding Summary. CODING DATE: FINAL [facility] STATUS: Home (Routine DC) PAYOR: Medicare [...] PROC APC STAT DESCRIPTION DOCTOR NAME DATE [id number] J1 Ligation or biopsy, Bianca Peoples [...] Melina Cali Date Saved: 11/06/2020 03:19 pm Normal [facility] Main OR Intraoperative Recor don 11-06-2020 Main OR Intraoperative Record IntraOp Document Type FT Summary Primary Physician: Bianca Peoples MD Finalized Date/Time: 11/06/20 10:16:21 Pt. Name: BHUMIKA WHEATLEY/Sex: 1950 Female Med Rec #: [id number] Physician: Bianca Peoples MD Financial #: [id number] Pt. Type: A Room/Bed: AS03/15 Admit/Disch: 11/03/20 08:17:30 - 11/03/20 13:00:00 Institution: [...] Smita Curtis Role Performed Surgeon - Primary Bioinformatics Engineer - Primary Scrub - Primary Time In [...] Points Checked Yes By Eryn Hernandez RN, Pao MD, Kristina Y Outcomes Met? Yes Last Modified By: Eryn Hernandez RN 11/03/20 11:52:43 Post-Care Text: The patient is free from signs (more content not included)... Normal [facility] Discharge Instructionson Discharge Instructions [id number]#1.00CD:127 Normal [facility] IntraOperative Documentson 0 11-04-2020 IntraOperative Documents [id number]#1.00CD:127 Normal [facility] Operative Reporton Operative Report Date of Surgery: [...] complications. Bianca Peoples MD gls Dictated: 11/03/2020 #[id number] Typed: 11/04/2020 #[id number] cc: Bianca Peoples MD [facility] Comment on above: Result Comment: Elec tronically Signed By: Bianca Peoples MD\.br\Date and Time Signed: 11/04/20 20:56 EDT Preoperative Documentson Preoperative Documents [id number]#1.00CD:127 [facility] Consent for Treatmenton 10-14 Consent for Treatment [id number]#1.00CD:127 Normal [facility] Inpatient Patient Summaryon 11-03-2020 Inpatient Patient Summary [place] [id number] [facility] Clinical Discharge Instructions PERSON INFORMATION Name: BHUMIKA WHEATLEY PHYSICIANS Admitting Physician: Bianca Peoples MD Attending Physician: Bianca Peoples MD PCP: KAMERON BARROS, ESPINOZA Espinal Discharge Diagnosis: Giant cell arteritis Comment: PATIENT EDUCATION INFORMATION Instructions: Medication Leaflets: Follow up: With: Address: When: Bianca Peoples [address] [place] [address] [phone] Business (1) Within 1 week MEDICATION LIST [...] every day., double visione, pain Comment: Normal [facility] Main OR PACU II [facility] Main OR PACU II Record PACU Phase II Document Type FT Summary Primary Physician: Bianca Peoples MD Finalized Date/Time: 11/03/20 13:05:07 Pt. Name: BHUMIKA WHEATLEY Ever Tavares./Sex: 1950 Female Med Rec #: [id number] Physician: Bianca Peoples MD Financial #: [id number] Pt. Type: A Room/Bed: [place] [address] Admit/Disch: 11/03/20 08:17:30 - Institution: Case Times [...] II Outcomes Met? Yes Last Modified By: Jem RENO, Kelly Mcpherson 11/03/20 13:05:06 Post-Care Text: The patient demonstrates [...] By: Kelly Parish RN 11/03/20 13:05 Normal [facility] Main OR Preoperative Recordo n 11-03-2020 Main OR Preoperative Record Holding Area Document Type FT Summary Primary Physician: Bianca Peoples MD Finalized Date/Time: 11/03/20 09:17:24 Pt. Name: BHUMIKA WHEATLEY/Sex: 1950 Female Med Rec #: [id number] Physician: Bianca Peoples MD Financial #: [id number] Pt. Type: A Room/Bed: [place] [address] Admit/Disch: 11/03/20 08:17:30 - Institution: Case Times [...] By: Ileana Denis LPN 11/03/20 09:17 Normal [facility] Outpatient Surgery Discharge Instructionon 11-03-2020 Outpatient Surgery Discharge Instruction [place] [id number] Patient Discharge Instructions PERSON INFORMATION Name: BHUMIKA [...] Follow up: With: Address: When: Bianca Peoples [facility] [address] [place] [address] [phone] Business (1) Within 1 week Pharmacy Information: [facility] [place] You may receive a survey from [employer] asking you to rate your care experience. Your feedback is important and will help us understand what we do well and how we can improve the quality of care we provide to you, your loved ones and our community. It?s an honor to serve you. Thank you for choosing [facility] HERE ARE THE MEDICATION CHANGES THAT OCCURRED [...] visione, pain PATIENT EDUCATION INFORMATION Instructions: Normal [facility] Patient Education - Texton 0 11-03-2020 Patient Education - Text [facility] Progress Note-Physicianon Progress Note-Physician Patient: BHUMIKA [...] lidocaine with 1:100,000 epinephrine, MAC sedation. Normal [facility] Comment on above: Result Comment: Elec tronically Signed By: Bianca Peoples MD\.br\Date and Time Signed: 11/03/20 12:24 EDT Consent for Procedure/Surger yon 10-31-2020 Consent for Procedure/Surgery [id number]#1.00CD:127 Normal [facility] Auto Diffon 10-29-2020 Basophils/100 WBC (Bld) 0.3 % Normal 0.0-2.0 [facility] Comment on above: Order Comment: Order Added by Discern Expert. Performed By: #### 1 [id number], 3427687, 1679176, [id number] ####[facility] [address] [place] [address] Basophils/Leukocyt es Auto (Bld) [Pure # fraction] 0.0 E9/L Normal 0.0-0.2 [facility] Comment on above: Order Comment: Order Added by Discern Expert. Performed By: #### 1 [id number], 9046245, 1894223, [id number] ####[facility] [address] [place] [address] Eosinophils/100 WBC (Bld) 1.2 % Normal 0.0-8.0 [facility] Comment on above: Order Comment: Order Added by Discern Expert. Performed By: #### 1 0136468, 7525408, 8740264, [id number] ####[facility] [address] [place] [address] Eosinophils/Leukoc ytes Auto (Bld) [Pure # fraction] 0.1 E9/L Normal 0.0-0.5 [facility] Comment on above: Order Comment: Order Added by Discern Expert. Performed By: #### 1 5970912, 7841459, 5892724, [id number] ####[facility] [address] [place] [address] Lymphocytes/100 WBC (Bld) 9.2 % Low 14.0-50.0 [facility] Comment on above: Order Comment: Order Added by Discern Expert. Performed By: #### 1 1444943, 2531459, 4114797, 66501279 ####[place] [address] [place] [address] Lymphocytes/Leukoc ytes Auto (Bld) [Pure # fraction] 0.7 E9/L Low 1.0-4.0 [facility] Comment on above: Order Comment: Order Added by Discern Expert. Performed By: #### 1 5063314, 0317520, 2158557, 12834967 ####[place] [address] [place] [address] Monocytes/100 WBC (Bld) 16.3 % High 4.0-14.0 [facility] Comment on above: Order Comment: Order Added by Discern Expert. Performed By: #### 1 4014555, 7640441, 9718083, 84127022 ####[facility] [address] [place] [address] Monocytes/Leukocyt es Auto (Bld) [Pure # fraction] 1.3 E9/L High 0.2-1.0 [facility] Comment on above: Order Comment: Order Added by Discern Expert. Performed By: #### 1 2777535, 9229462, 1250978, 51900580 ####[facility] [address] [place] [address] Neutrophils/100 WBC (Bld) 73.0 % Normal 36.0-75.0 [facility] Comment on above: Order Comment: Order Added by Discern Expert. Performed By: #### 1 6902213, 0228147, 8755588, 68753304 ####[facility] [address] [place] [address] Neutrophils/Leukoc ytes Auto (Bld) [Pure # fraction] 5.8 E9/L Normal 2.0-7.5 [facility] Comment on above: Order Comment: Order Added by Discern Expert. Performed By: #### 1 8713486, 5646599, 6444741, 42801735 ####[address] [place] [address] CBC w/ Auto Diffon Erythrocyte distribution width (RBC) [Ratio] 14.3 % High 10.9-14.2 [facility] Comment on above: Performed By: #### 1 3520485, 6485179, 7592016, 53609259 ####[place] [address] [place] [address] Hematocrit (Bld) [Volume fraction] 35.3 % Normal 34.0-46.0 [facility] Comment on above: Performed By: #### 1 5409963, 0118954, 6586647, 15884143 ####[place] [address] [place] [address] Hemoglobin (Bld) [Mass/Vol] 11.7 g/dL Low 12.0-16.0 [facility] Comment on above: Performed By: #### 1 2329377, 5444867, 0983335, 12454257 ####[place] [address] [place] [address] MCH (RBC) [Entitic mass] 29.6 pg Normal 27.0-34.0 [facility] Comment on above: Performed By: #### 1 4794337, 6918094, 0662066, 18204452 ####[place] [address] [place] [address] MCHC (RBC) [Mass/Vol] 33.2 g/dL Normal 31.4-36.0 [facility] Comment on above: Performed By: #### 1 0243616, 5061959, 1186611, 41258438 ####[address] [place] [address] MCV (RBC) [Entitic vol] 89.2 fL Normal 80.0-100.0 [facility] Comment on above: Performed By: #### 1 4757523, 3034634, 6588983, 69214702 ####[facility] [address] [place] [address] Platelet mean volume (Bld) [Entitic vol] 7.7 fL Normal 6.4-10.8 [facility] Comment on above: Performed By: #### 1 5296069, 1016208, 1682687, 45009838 ####[place] [address] [place] [address] Platelets (Bld) [#/Vol] 321.0 E9/L Normal 150.0-500.0 [facility] Comment on above: Performed By: #### 1 9026870, 5594777, 8704492, 25151407 ####[address] [address] RBC (Bld) [#/Vol] 4.0 E12/L Low 4.3-5.9 [facility] Comment on above: Performed By: #### 1 4703854, 4402736, 1126938, 87003180 ####[address] [address] WBC corrected for nucl RBC Auto (Bld) [#/Vol] 8.0 E9/L Normal 4.0-11.0 [facility] Comment on above: Result Comment: Slid e reviewed by [email or web address]. Performed By: #### 1 1944112, 4866759, 8388915, 26195295 ####[address] [address] CRP HSon 10-29-2020 CRP High sensitivity method [Mass/Vol] 6.91 mg/dL High <=0.75 [facility] Comment on above: Performed By: #### 1 0662007, 5517120, 3140378, 85369842 ####[place] [address] [place] [address] Consent for Treatmenton 10-13 Consent for Treatment [id number]#1.00CD:127 Normal [facility] Physician Orderon 10-29-2020 Physician Order [id number]#1.00CD:127 Normal [facility] Sed Rate Automatedon 021 Sed Rate Automated 99 mm/hr High 0-34 [facility] Comment on above: Performed By: #### 1 9902228, 1423064, 9898958, 11145984 ####[facility] [address] [place] [address] GLUCOSE-POCTon 03-13-2019 Glucose [Mass/Vol] 157 mg/dL High 74 - 99 [facility] Comment on above: Performed By: #### P TINR #### [facility] [address] [place] [address] REFLEX TESTS FOR POS ANCAon 03-13-2019 MYELOPEROXIDASE AB 41 AU/mL High 0-19 [facility] Comment on above: Result Comment: INTE RPRETIVE INFORMATION: Myeloperoxidase Abs, IgG 19 AU/mL or Less ......... Negative 20-25 AU/mL .............. Equivocal 26 AU/mL or Greater ...... Positive Approximately 90% of patients with a P-ANCA pattern by IFA have antibodies specific for MPO. Performed By: #### R ANCA ####[facility] [place] [address] Protein [Mass/Vol] 108 AU/mL High 0-19 [facility] Comment on above: Result Comment: INTE RPRETIVE INFORMATION: Serine Protease 3, IgG 19 AU/mL or Less ........ Negative 20-25 AU/mL ............. Equivocal 26 AU/mL or Greater ..... Positive Approximately 85% of patients with a C-ANCA pattern by IFA have antibodies specific for PR3. Performed by [facility], [address] [place] [address] [email or web address], Rafael Robertson MD - Lab. Director Performed By: #### R ANCA ####[facility] [place] [address] TAMIKA TITER/LUIS PANELon 2018 TAMIKA PATTERN SPECKLED Normal [facility] Comment on above: Performed By: #### P TINR #### [facility] [address] [place] [address] TAMIKA TITER 1:640 Normal [facility] Comment on above: Performed By: #### P TINR #### [facility] [address] [place] [address] ANCA WITH REFLEX TO MPO, PR3 on 03-12-2019 ANCA WITH REFLEX TO MPO, PR3 1:320 High <1:20 [facility] Comment on above: Result Comment: [...] collagen vascular disease or arthritis. Performed by [facility], [address] [place] [address] [email or web address], Rafael Robertson MD - Lab. Director Performed By: #### A NCAR ####[facility] [place] [address] CBCon 03-12-2019 Erythrocyte distribution width (RBC) [Ratio] 16.0 % High 11.5 - 14.5 [facility] Comment on above: Performed By: #### P TINR #### [facility] [address] [place] [address] Hematocrit (Bld) [Volume fraction] 25.6 % Low 36.0 - 46.0 [facility] Comment on above: Performed By: #### P TINR #### [facility] [address] [place] [address] Hemoglobin (Bld) [Mass/Vol] 7.9 g/dL Low 12.0 - 16.0 [facility] Comment on above: Performed By: #### P TINR #### [facility] [address] [place] [address] MCHC (RBC) [Mass/Vol] 30.9 g/dL Low 32.0 - 36.0 [facility] Comment on above: Performed By: #### P TINR #### [facility] [address] [place] [address] MCV (RBC) [Entitic vol] 95 fL Normal 80 - 100 [facility] Comment on above: Performed By: #### P TINR #### [facility] [address] [place] [address] Nucleated RBC/100 WBC (Bld) [Ratio] 0.0 /100 WBC Normal 0.0-0.0 [facility] Comment on above: Performed By: #### P TINR #### [facility] [address] [place] [address] Platelets (Bld) [#/Vol] 203 10*3/uL Normal 150 - 450 [facility] Comment on above: Performed By: #### P TINR #### [facility] [address] [place] [address] RBC (Bld) [#/Vol] 2.69 x10E12/L Low 4.00 - 5.20 [facility] Comment on above: Performed By: #### P TINR #### [facility] [address] [place] [address] WBC (Bld) [#/Vol] 13.8 10*3/uL High 4.4 - 11.3 [facility] Comment on above: Performed By: #### P TINR #### [facility] [address] [place] [address] Clinical Event Note-Nephrolo gyon 03-12-2019 Clinical Event Note-Nephrology Event: Topic: Nephrology Details: okay to discharge patient from nephrology standpoint with outpatient nephrology follow up continue on prednisone and MMF follow up pending serology and workup request kidney Bx ( slides and block) to be read at [facility] Kenia Sanchez MD, MS Nephrology fellow P [phone] Electronic Signatures: Kenia Sanchez ( (Fellow)) (Signed 12-Mar-2019 19:09) Authored: Event Last Updated: 12-Mar-2019 19:09 by Kenia Sanchez ( (Fellow)) Normal [facility] Daily Progress Note-Medicine on 03-12-2019 Daily Progress Note-Medicine Service: Medicine Subjective Data: BHUMIKA WHEATLEY is a 68 year old Female who is Hospital Day # 5. Overnight Events: Patient had an uneventful night. Objective Data: Objective Information: ---- Intake and Output ----- Mn/Dy/Year TimeIntakeOutputNet Mar 12, 2019 6:00 [id number] Mar 11, 2019 10:00 [id number] The Intake and Output Totals for the last 24 hours are: IntakeOutputNet [id number] T PRBPSpO2 Value36.44173040/7499% Date/Time03/12 8: 8: 8: 8: 8:29 Range(36.1C [...] 16.0 H Renal Function Panel Trending View Rryofl04-Iuy-0132 09:14:00 11-Mar-2019 07:10:00 Glucose, Zoqhh418 H 134 H NA139 138 K4.8 4.5 CL104 103 Bicarbonate, Serum22 23 Anion Gap, Serum18 17 BUN87 H 90 H CREAT2.45 H 2.80 H GFR-Non Khnmankk91 A 17 A GFR- Avqgscfq51 A 21 A Calcium, Serum8.6 8.6 Phosphorus, Serum5.0 H 4.7 ALB2.9 L 2.9 L Glucose_POCT Trending View Woeszh30-Exp-3264 08:26:00 11-Mar-2019 20:46:00 11-Mar-2019 16:17:00 11-Mar-2019 07:02:00 10-Mar-2019 21:23:00 Glucose-JLML000 H 156 H 88 152 H 155 [...] Updated: 12-Mar-2019 13:44 by Wilberto Morgan) Normal [facility] Daily Progress Note-Medicine Service: Medicine [...] ----- Mn/Dy/Year TimeIntakeOutputNet Mar 12, 2019 6:00 [id number] Mar 11, 2019 10:00 [id number] The Intake and Output Totals for the last 24 hours are: IntakeOutputNet [id number] T PRBPSpO2 Value36.08555703/7499% Date/Time03/12 8: 8: 8: 8: 8:29 Range(36.1C [...] SLE nephritis: low C3, C4, +TAMIKA, +anti-SM, +anti-DENTAL SCHEDULER, +anti-chromatin vs. ANCA: +ANCA (low positive), +PR3 [...] I: PIV FULL CODE Santi Raymond Pager: [phone] [facility] Nutrition Diagnosis: Nutrition Diagnosis Agree with [...] this note. I personally evaluated the patient [id number] Comments/ Additional Findings Please see my note for further details. Electronic Signatures: Margret Raymond (MED STUD) (Signed 12-Mar-2019 14:39) Authored: Service, Subjective Data, Objective Data, Assessment and Plan Wilberto Morgan) (Signed 16-Mar-2019 07:47) Authored: Signature/Cosignature/Atte station Co-Signer: Service, Subjective Data, Objective Data, Assessment and Plan Last Updated: 16-Mar-2019 07:47 by Wilberto Morgan) Normal [facility] Daily Progress Note-Rheumato logyon 03-12-2019 Daily Progress Note-Rheumatology Service: Rheumatology Subjective Data: BHUMIKA WHEATLEY is a 68 year old Female who is Hospital Day # 5. Patient seen and examined at bedside. No acute events. Objective Data: Objective Information: ---- Intake and Output ----- Mn/Dy/Year TimeIntakeOutputNet Mar 12, 2019 2:00 [id number] Mar 12, 2019 6:00 [id number] Mar 11, 2019 10:00 [id number] The Intake and Output Totals for the last 24 hours are: IntakeOutputNet [id number] T PRBPSpO2 Value36.31736496/6899% Date/Time03/12 15: 15: 15: 15: 15:00 Range(36.4C - 36.9C ) (81 - 99 ) (18 - 20 ) (126 - 136 )/ (68 - 74 ) (98% - 99% ) Highest temp of 36.9 C was recorded at 03/12 15:00 ---- Intake and Output ----- Mn/Dy/Year TimeIntakeOutputNet Mar 12, 2019 2:00 [id number] Mar 12, 2019 6:00 [id number] Mar 11, 2019 10:00 [id number] The Intake and Output Totals for the last 24 hours are: IntakeOutputNet [id number] General - NAD Cardiovascular - RRR no [...] Reference Range: STRAW,YELLOW Appearance, Urine HAZY Specific [place], Urine 1.008 pH, Urine 5.0 Protein, Urine [...] 16.0 H Renal Function Panel Trending View Xwnefk87-Qub-8163 09:14:00 11-Mar-2019 07:10:00 Glucose, Qhwgv950 H 134 H NA139 138 K4.8 4.5 CL104 103 Bicarbonate, Serum22 23 Anion Gap, Serum18 17 BUN87 H 90 H CREAT2.45 H 2.80 H GFR-Non Wxqsylok23 A 17 A GFR- Rnmgznkb89 A 21 A Calcium, Serum8.6 8.6 Phosphorus, Serum5.0 H 4.7 ALB2.9 L 2.9 L Glucose_POCT Trending View Xptyne72-Qzf-6375 08:26:00 11-Mar-2019 20:46:00 11-Mar-2019 16:17:00 Glucose-BHGC948 H 156 H 88 Complete Blood Count [...] of PMR 2011, who was 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 Pt's symptoms started about a year ago with persistent hematuria, recurrent UTIs accompanied with intermittent flank pain, fatigue, anorexia, alopecia, and weight loss. No symptoms of active SLE other than fatigue and alopecia, no typical Hx of GPA. Had +TAMIKA, +anti-SM, +anti-DENTAL SCHEDULER, and +anti-chromatin antibodies, low C3 and C4, [...] then downtrended to 2.61 on transfer from [facility] Hepatitis and HIV screens neg, C3 68 / C4 <8 , CXR didn't show acute changes Labs from [facility] reviewed, it showed C-ANCA 1:40, MPO 25.7, PR3 8, ESR 100, TAMIKA +, Anti DENTAL SCHEDULER>8, Anti SM 1.5, Chromatin 4.1, neg DNA Update: Cr 2.45 today. 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 - Can be discharged from Rheumatology standpoint Pt seen, examined, and discussed with attending, Dr. Tijerina Thank you for the consult, please don't hesitate to contact me if you have any questions. Vinayak Drummond M.D. Rheumatology Fellow, PGY 4 Consult Rheumatology pager # [phone] Faye Signature/Cosignature/Atte station: Note Completion: Attending AttestationI [...] the note. I personally evaluated the patient [id number] Electronic Signatures: Corina Tijerina) (Signed 13-Mar-2019 07:57) Authored: Signature/Cosignature/Atte station Co-Signer: Service, Subjective Data, Objective Data, Assessment and Plan, Signature/Cosignature/Atte station Vinayak Drummond (Fellow)) (Signed 12-Mar-2019 21:41) Authored: Service, Subjective Data, Objective Data, Assessment and Plan, Signature/Cosignature/Atte station Last Updated: 13-Mar-2019 07:57 by Corina Tijerina) Normal [facility] Discharge [id number] 019 Discharge Profile2 Discharge Orders: Anticipated Discharge Date: Anticipated Discharge [id number]-Luf-7163 Anticipated Discharge Time12:40 Activity: activity as tolerated. May shower. May return to school/work Instructions: May drive. Diet: Dietregular Labs 1: Lab Test(s)Basic Metabolic Panel, CBC Date To Be Drawn03/20, 03/27, 04/03 Call Results ToDr. Wilberto Tyson -- [place] General Superintendent Call Provider If (Homegoing Patients): Breathing faster [...] old female who is admitted here from [facility] for management of SLE nephritis vs ANCA [...] 2017). Further lab work-up demonstrated +TAMIKA, +anti-Sm, anti-DENTAL SCHEDULER, and +anti-chromatin antibodies. Labs also demonstrated low C3 (unclear value), low C4 (unclear value) , with elevated Cr (3.2) (suggestive of lupus nephritis), and was subsequently admitted for concern for nephritis (lupus) vs vasculitis. On admission to [facility], Cr was 3.57 and was started on [...] the glomeruli and no significant extraglomerular staining. [place] and lambda stain were equally shown throughout the tubulointerstitium. 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 Patient was also hypertensive on admission (SBP 170s) and was reduced to 130s after starting on amlodipine 10mg/daily. Bactrim was started for PCP prophylaxis. On admission to [facility], pt report no symptoms associated with lupus [...] as an outpatient until follow up with clinical program manager Dr. Tyson. Vitally stable on day of discharge. Things to Follow Up: - PET scan final read by PCP, rheum and nephro - remember to uptitrate cellcept from 500mg twice a day for 7 days then 1000mg twice a day for 7 days and 1500mg twice a day for 7 days. - please obtain CBC and RFP weekly until follow up with clinical program manager Provider FINAL REVIEW of Orders: Final Review: Final Review of Medication Reconciliation and Orders Completedby Physician Reviewing ProviderLia Leonardo MD (Resident) at 13-Mar-2019 14:19:15 Appointments: Follow-Up Appointment 01: Physician/Dept/ServicePCP Call to Schedule inOffice requests you call to schedule appointment CommentsPlease call to schedule your follow up with your primary care provider. Lock Fitter services unable to locate primary care information. Follow-Up Appointment 02: Physician/Dept/ServiceDr. Wilberto Tyson Nephrology Reason for ReferralSLE nephritis vs. ANCA vasculitis Scheduled Date/Yiij96-Iep-1359 12:[address] [place] [address] Fx [phone] (closest location & Provider) 39 miles Phone [phone] CommentsPlease arrive 15 minutes early to complete registration & bring insurance card & photo id. Please call the office if unable to keep this appointment. Follow-Up Appointment 03: Physician/Dept/Service. Alberto Lechuga Rheumatology Reason for ReferralSLE nephritis vs. ANCA vasculitis Call to Schedule inOffice requests you call to schedule appointment [id number] [facility] [place] [address] [place] [address] (Closest Location) Phone [phone] CommentsOffice prefer patient call to schedule new patient visit. Please have insurance information available. Electronic Signatures: Yari Killian (PT ACC REP) (Signed 12-Mar-2019 14:03) Authored: Appointments Lia Leonardo ( (Resident)) (Signed 13-Mar-2019 14:19) Authored: Discharge Orders, Hospital Course (Home Care/Gold Form), Provider FINAL REVIEW of Orders, Appointments, Gold Form - Nursing Educator Summary Last Updated: 13-Mar-2019 14:19 by Lia Leonardo ( (Resident)) Normal [facility] GLUCOSE-POCTon 03-12-2019 Glucose [Mass/Vol] 127 mg/dL High 74 - 99 [facility] Comment on above: Performed By: #### E SRWS #### [facility] [address] [place] [address] PET TUMORS / NOT PREVIOUSLY LISTEDon 03-12-2019 PET TUMORS / NOT PREVIOUSLY LISTED Patient Name: BHUMIKA WHEATLEY STUDY: PET TUMORS / NOT PREVIOUSLY LISTED; 03/12/2019 12:58 pm INDICATION: multiple previous cancers, presenting with autoimmune syndrome with labs equivocal for ANCA vasculitis vs lupus nephritis. ruling out cancer associated phenomena. COMPARISON: None. ACCESSION NUMBER(S): [id number] ORDERING CLINICIAN: SUNNY VICENTE TECHNIQUE: DIVISION OF [...] CODING: Initial Treatment Strategy (PI) CALIBRATION: Dose Zvyivqcwy-yn-Kabw Interval (mins): 62 min Mediastinal bloodpool SUV [...] as stated. This study was interpreted at [facility]. Electronically signed by: DOUG ARGUETA MD Normal [facility] RENAL FUNCTION PANELon 03-12 Albumin [Mass/Vol] 2.9 g/dL Low 3.4 - 5.0 [facility] Comment on above: Performed By: #### P TINR #### [facility] [address] [place] [address] Anion gap [Moles/Vol] 18 mmol/L Normal 10 - 20 [facility] Comment on above: Performed By: #### P TINR #### [facility] [address] [place] [address] Calcium [Mass/Vol] 8.6 mg/dL Normal 8.6 - 10.6 [facility] Comment on above: Performed By: #### P TINR #### [facility] [address] [place] [address] Chloride [Moles/Vol] 104 mmol/L Normal 98 - 107 [facility] Comment on above: Performed By: #### P TINR #### [facility] [address] [place] [address] Creatinine [Mass/Vol] 2.45 mg/dL High 0.50 - 1.05 [facility] Comment on above: Performed By: #### P TINR #### [facility] [address] [place] [address] GFR- AM. 24 mL/min/1.73m2 Abnormal >60 [facility] Comment on above: Result Comment: CALC ULATIONS OF ESTIMATED GFR ARE PERFORMED USING THE MDRD STUDY EQUATION FOR THE IDMS-TRACEABLE CREATININE METHODS. CLIN CHEM 2007;53:766-72 Performed By: #### P TINR #### [facility] [address] [place] [address] GFR-NON AM. 20 mL/min/1.73m2 Abnormal >60 [facility] Comment on above: Performed By: #### P TINR #### [facility] [address] [place] [address] Glucose [Mass/Vol] 123 mg/dL High 74 - 99 [facility] Comment on above: Performed By: #### P TINR #### [facility] [address] [place] [address] HCO3 (Bld) [Moles/Vol] 22 mmol/L Normal 21 - 32 [facility] Comment on above: Performed By: #### P TINR #### [facility] [address] [place] [address] Phosphate [Mass/Vol] 5.0 mg/dL High 2.5 - 4.9 [facility] Comment on above: Result Comment: The performance characteristics of phosphorus testing in heparinized plasma have been validated by the individual laboratory site where testing is performed. Testing on heparinized plasma is not approved by the FDA; however, such approval is not necessary. Performed By: #### P TINR #### [facility] [address] [place] [address] Potassium [Moles/Vol] 4.8 mmol/L Normal 3.5 - 5.3 [facility] Comment on above: Performed By: #### P TINR #### [facility] [address] [place] [address] Sodium [Moles/Vol] 139 mmol/L Normal 136 - 145 [facility] Comment on above: Performed By: #### P TINR #### [facility] [address] [place] [address] Urea nitrogen [Mass/Vol] 87 mg/dL High 6 - 23 [facility] Comment on above: Performed By: #### P TINR #### [facility] [address] [place] [address] CBC AND DIFFERENTIALon 03-11 % AUTOMATED IMMATURE GRAN 3.4 % High 0.0 - 0.9 [facility] Comment on above: Result Comment: Perc ent differential counts (%) should be interpreted in the context of the absolute cell counts (cells/L). Performed By: #### E SRWS #### [facility] [address] [place] [address] Basophils (Bld) [#/Vol] 0.02 10*3/uL Normal 0.00 - 0.10 [facility] Comment on above: Performed By: #### E SRWS #### [facility] [address] [place] [address] Basophils/100 WBC (Bld) 0.1 % Normal 0.0 - 2.0 [facility] Comment on above: Performed By: #### E SRWS #### [facility] [address] [place] [address] Eosinophils (Bld) [#/Vol] 0.00 10*3/uL Normal 0.00 - 0.70 [facility] Comment on above: Performed By: #### E SRWS #### [facility] [address] [place] [address] Eosinophils/100 WBC (Bld) 0.0 % Normal 0.0 - 6.0 [facility] Comment on above: Performed By: #### E SRWS #### [facility] [address] [place] [address] Erythrocyte distribution width (RBC) [Ratio] 16.0 % High 11.5 - 14.5 [facility] Comment on above: Performed By: #### E SRWS #### [facility] [address] [place] [address] Hematocrit (Bld) [Volume fraction] 26.2 % Low 36.0 - 46.0 [facility] Comment on above: Performed By: #### E SRWS #### [facility] [address] [place] [address] Hemoglobin (Bld) [Mass/Vol] 8.0 g/dL Low 12.0 - 16.0 [facility] Comment on above: Performed By: #### E SRWS #### [facility] [address] [place] [address] Lymphocytes (Bld) [#/Vol] 0.44 10*3/uL Low 1.20 - 4.80 [facility] Comment on above: Performed By: #### E SRWS #### [facility] [address] [place] [address] Lymphocytes/100 WBC (Bld) 3.2 % Normal 13.0 - 44.0 [facility] Comment on above: Performed By: #### E SRWS #### [facility] [address] [place] [address] MCHC (RBC) [Mass/Vol] 30.5 g/dL Low 32.0 - 36.0 [facility] Comment on above: Performed By: #### E SRWS #### [facility] [address] [place] [address] MCV (RBC) [Entitic vol] 94 fL Normal 80 - 100 [facility] Comment on above: Performed By: #### E SRWS #### [facility] [address] [place] [address] Monocytes (Bld) [#/Vol] 0.58 10*3/uL Normal 0.10 - 1.00 [facility] Comment on above: Performed By: #### E SRWS #### [facility] [address] [place] [address] Monocytes/100 WBC (Bld) 4.2 % Normal 2.0 - 10.0 [facility] Comment on above: Performed By: #### E SRWS #### [facility] [address] [place] [address] Neutrophils (Bld) [#/Vol] 12.37 10*3/uL High 1.20 - 7.70 [facility] Comment on above: Performed By: #### E SRWS #### [facility] [address] [place] [address] Neutrophils/100 WBC (Bld) 89.1 % Normal 40.0 - 80.0 [facility] Comment on above: Performed By: #### E SRWS #### [facility] [address] [place] [address] Nucleated RBC/100 WBC (Bld) [Ratio] 0.0 /100 WBC Normal 0.0-0.0 [facility] Comment on above: Performed By: #### E SRWS #### [facility] [address] [place] [address] Platelets (Bld) [#/Vol] 223 10*3/uL Normal 150 - 450 [facility] Comment on above: Performed By: #### E SRWS #### [facility] [address] [place] [address] RBC (Bld) [#/Vol] 2.79 x10E12/L Low 4.00 - 5.20 [facility] Comment on above: Performed By: #### E SRWS #### [facility] [address] [place] [address] WBC (Bld) [#/Vol] 13.9 10*3/uL High 4.4 - 11.3 [facility] Comment on above: Performed By: #### E SRWS #### [facility] [address] [place] [address] Daily Progress Note-Medicine on 03-11-2019 Daily Progress Note-Medicine Service: Medicine Subjective Data: BHUMIKA WHEATLEY is a 68 year old Female who is Hospital Day # 4. Overnight Events: Patient had an uneventful night. Objective Data: Objective Information: ---- Intake and Output ----- Mn/Dy/Year TimeIntakeOutputNet Mar 11, 2019 6:00 [id number] Mar 10, 2019 10:00 [id number] The Intake and Output Totals for the last 24 hours are: IntakeOutputNet [id number] T PRBPSpO2 Value36.85196688/7799% Date/Time03/11 15: 15: 15: 15: 15:40 Range(36.1C [...] reviewed these laboratory results: Glucose_POCT Trending View Ezkhts60-Wyd-3256 16:17:00 11-Mar-2019 07:02:00 10-Mar-2019 21:23:00 10-Mar-2019 16:26:00 10-Mar-2019 07:40:00 09-Mar-2019 20:41:00 Glucose-POCT88 152 H 155 H 161 H 137 H 263 H Complete Blood Count + Differential Trending View Fmktti10-Ruf-9938 07:10:00 10-Mar-2019 07:56:00 White Blood Cell Count13.9 H 14.6 H Nucleated Erythrocyte Count0.0 0.0 Red Blood Cell Count2.79 L 2.73 L HGB8.0 L 8.3 L HCT26.2 L 27.3 L MCV94 100 MCHC30.5 L 30.4 L JZU066 223 RDW-CV16.0 H 16.4 H Neutrophil %89.1 87.2 Immature Granulocytes %3.4 H 3.0 H Lymphocyte %3.2 4.1 Monocyte %4.2 5.4 Eosinophil %0.0 0.0 Basophil %0.1 0.3 Neutrophil Count12.37 H 12.69 H Lymphocyte Count0.44 L 0.60 L Monocyte Count0.58 0.78 Eosinophil Count0.00 0.00 Basophil Count0.02 0.05 Renal Function Panel Trending View Vzutrc55-Dsg-6988 07:10:00 10-Mar-2019 07:56:00 Glucose, Wjltj741 H 129 H NA138 139 K4.5 4.4 CL103 103 Bicarbonate, Serum23 23 Anion Gap, Serum17 17 BUN90 H 94 HH CREAT2.80 H 2.84 H GFR-Non Gvawowlr16 A 16 A GFR- Askltbnb52 A 19 A Calcium, Serum8.6 8.7 Phosphorus, [...] Updated: 11-Mar-2019 16:39 by Wilberto Morgan) Normal [facility] GLUCOSE-POCTon 03-11-2019 Glucose [Mass/Vol] 156 mg/dL High 74 - 99 [facility] Comment on above: Performed By: #### E SRWS #### [facility] [address] [place] [address] Glucose [Mass/Vol] 88 mg/dL Normal 74 - 99 [facility] Comment on above: Performed By: #### E SRWS #### [facility] [address] [place] [address] Glucose [Mass/Vol] 152 mg/dL High 74 - 99 [facility] Comment on above: Performed By: #### E SRWS #### [facility] [address] [place] [address] RENAL FUNCTION PANELon 03-11 Albumin [Mass/Vol] 2.9 g/dL Low 3.4 - 5.0 [facility] Comment on above: Performed By: #### E SRWS #### [facility] [address] [place] [address] Anion gap [Moles/Vol] 17 mmol/L Normal 10 - 20 [facility] Comment on above: Performed By: #### E SRWS #### [facility] [address] [place] [address] Calcium [Mass/Vol] 8.6 mg/dL Normal 8.6 - 10.6 [facility] Comment on above: Performed By: #### E SRWS #### [facility] [address] [place] [address] Chloride [Moles/Vol] 103 mmol/L Normal 98 - 107 [facility] Comment on above: Performed By: #### E SRWS #### [facility] [address] [place] [address] Creatinine [Mass/Vol] 2.80 mg/dL High 0.50 - 1.05 [facility] Comment on above: Performed By: #### E SRWS #### [facility] [address] [place] [address] GFR- AM. 21 mL/min/1.73m2 Abnormal >60 [facility] Comment on above: Result Comment: CALC ULATIONS OF ESTIMATED GFR ARE PERFORMED USING THE MDRD STUDY EQUATION FOR THE IDMS-TRACEABLE CREATININE METHODS. CLIN CHEM 2007;53:766-72 Performed By: #### E SRWS #### [facility] [address] [place] [address] GFR-NON AM. 17 mL/min/1.73m2 Abnormal >60 [facility] Comment on above: Performed By: #### E SRWS #### [facility] [address] [place] [address] Glucose [Mass/Vol] 134 mg/dL High 74 - 99 [facility] Comment on above: Performed By: #### E SRWS #### [facility] [address] [place] [address] HCO3 (Bld) [Moles/Vol] 23 mmol/L Normal 21 - 32 [facility] Comment on above: Performed By: #### E SRWS #### [facility] [address] [place] [address] Phosphate [Mass/Vol] 4.7 mg/dL Normal 2.5 - 4.9 [facility] Comment on above: Result Comment: The performance characteristics of phosphorus testing in heparinized plasma have been validated by the individual laboratory site where testing is performed. Testing on heparinized plasma is not approved by the FDA; however, such approval is not necessary. Performed By: #### E SRWS #### [facility] [address] [place] [address] Potassium [Moles/Vol] 4.5 mmol/L Normal 3.5 - 5.3 [facility] Comment on above: Performed By: #### E SRWS #### [facility] [address] [place] [address] Sodium [Moles/Vol] 138 mmol/L Normal 136 - 145 [facility] Comment on above: Performed By: #### E SRWS #### [facility] [address] [place] [address] Urea nitrogen [Mass/Vol] 90 mg/dL High 6 - 23 [facility] Comment on above: Performed By: #### E SRWS #### [facility] [address] [place] [address] T-SPOT TBon 03-11-2019 NIL[NEG]CONTROL SPOT COUNT Passed Normal [facility] Comment on above: Performed By: #### E SRWS #### [facility] [address] [place] [address] PANEL A SPOT COUNT 2 Normal [facility] Comment on above: Performed By: #### E SRWS #### [facility] [address] [place] [address] PANEL B SPOT COUNT 0 Normal [facility] Comment on above: Performed By: #### E SRWS #### [facility] [address] [place] [address] POS CONTROL SPOT COUNT Passed Normal [facility] Comment on above: Performed By: #### E SRWS #### [facility] [address] [place] [address] T-SPOT.TB INTERP Negative Normal Normal Value: Negative [facility] Comment on above: Result Comment: [...] test. Performed By: #### E SRWS #### [facility] [address] [place] [address] TAMIKA TITER/LUIS PANELon 2018 ANTI-CENTROMERE <0.2 Normal [facility] Comment on above: Result Comment: REF VALUES < 1.0 = NEGATIVE >=1.0 = POSITIVE Performed By: #### P TINR #### [facility] [address] [place] [address] ANTI-CHROMATIN 4.7 AI Abnormal [facility] Comment on above: Result Comment: REF VALUES < 1.0 = NEGATIVE >=1.0 = POSITIVE Performed By: #### P TINR #### [facility] [address] [place] [address] ANTI-DNA [DS] 2.0 IU/mL Normal [facility] Comment on above: Result Comment: REF VALUES NEGATIVE: <= 4 IU/ML EQUIVOCAL: 5- 9 IU/ML POSITIVE: >=10 IU/ML Performed By: #### P TINR #### [facility] [address] [place] [address] ANTI-JAMIA-1 <0.2 Normal [facility] Comment on above: Result Comment: REF VALUES < 1.0 = NEGATIVE >=1.0 = POSITIVE Performed By: #### P TINR #### [place] [id number] [place] [address] ANTI-RIBOSOMAL P <0.2 Normal [facility] Comment on above: Result Comment: REF VALUES < 1.0 = NEGATIVE >=1.0 = POSITIVE Performed By: #### P TINR #### [place] [id number] [place] [address] ANTI-DENTAL SCHEDULER >8.0 Abnormal [facility] Comment on above: Result Comment: REF VALUES < 1.0 = NEGATIVE >=1.0 = POSITIVE Performed By: #### P TINR #### [facility] [address] [place] [address] ANTI-SCL-70 <0.2 Normal [facility] Comment on above: Result Comment: REF VALUES < 1.0 = NEGATIVE >=1.0 = POSITIVE Performed By: #### P TINR #### [facility] [address] [place] [address] ANTI-SM 1.1 AI Abnormal [facility] Comment on above: Result Comment: REF VALUES < 1.0 = NEGATIVE >=1.0 = POSITIVE Performed By: #### P TINR #### [facility] [address] [place] [address] ANTI-SM/DENTAL SCHEDULER >8.0 Abnormal [facility] Comment on above: Result Comment: REF VALUES < 1.0 = NEGATIVE >=1.0 = POSITIVE Performed By: #### P TINR #### [facility] [address] [place] [address] ANTI-SSA <0.2 Normal [facility] Comment on above: Result Comment: REF VALUES < 1.0 = NEGATIVE >=1.0 = POSITIVE Performed By: #### P TINR #### [facility] [address] [place] [address] ANTI-SSB <0.2 Normal [facility] Comment on above: Result Comment: REF VALUES < 1.0 = NEGATIVE >=1.0 = POSITIVE Performed By: #### P TINR #### [facility] [address] [place] [address] CBC AND DIFFERENTIALon 03-10 % AUTOMATED IMMATURE GRAN 3.0 % High 0.0 - 0.9 [facility] Comment on above: Result Comment: Perc ent differential counts (%) should be interpreted in the context of the absolute cell counts (cells/L). Performed By: #### C BCDF #### [facility] [address] [place] [address] Basophils (Bld) [#/Vol] 0.05 10*3/uL Normal 0.00 - 0.10 [facility] Comment on above: Performed By: #### C BCDF #### [facility] [address] [place] [address] Basophils/100 WBC (Bld) 0.3 % Normal 0.0 - 2.0 [facility] Comment on above: Performed By: #### C BCDF #### [facility] [address] [place] [address] Eosinophils (Bld) [#/Vol] 0.00 10*3/uL Normal 0.00 - 0.70 [facility] Comment on above: Performed By: #### C BCDF #### [facility] [address] [place] [address] Eosinophils/100 WBC (Bld) 0.0 % Normal 0.0 - 6.0 [facility] Comment on above: Performed By: #### C BCDF #### [facility] [address] [place] [address] Erythrocyte distribution width (RBC) [Ratio] 16.4 % High 11.5 - 14.5 [facility] Comment on above: Performed By: #### C BCDF #### [facility] [address] [place] [address] Hematocrit (Bld) [Volume fraction] 27.3 % Low 36.0 - 46.0 [facility] Comment on above: Performed By: #### C BCDF #### [facility] [address] [place] [address] Hemoglobin (Bld) [Mass/Vol] 8.3 g/dL Low 12.0 - 16.0 [facility] Comment on above: Performed By: #### C BCDF #### [facility] [address] [place] [address] Lymphocytes (Bld) [#/Vol] 0.60 10*3/uL Low 1.20 - 4.80 [facility] Comment on above: Performed By: #### C BCDF #### [facility] [address] [place] [address] Lymphocytes/100 WBC (Bld) 4.1 % Normal 13.0 - 44.0 [facility] Comment on above: Performed By: #### C BCDF #### [facility] [address] [place] [address] MCHC (RBC) [Mass/Vol] 30.4 g/dL Low 32.0 - 36.0 [facility] Comment on above: Performed By: #### C BCDF #### [facility] [address] [place] [address] MCV (RBC) [Entitic vol] 100 fL Normal 80 - 100 [facility] Comment on above: Performed By: #### C BCDF #### [facility] [address] [place] [address] Monocytes (Bld) [#/Vol] 0.78 10*3/uL Normal 0.10 - 1.00 [facility] Comment on above: Performed By: #### C BCDF #### [facility] [address] [place] [address] Monocytes/100 WBC (Bld) 5.4 % Normal 2.0 - 10.0 [facility] Comment on above: Performed By: #### C BCDF #### [facility] [address] [place] [address] Neutrophils (Bld) [#/Vol] 12.69 10*3/uL High 1.20 - 7.70 [facility] Comment on above: Performed By: #### C BCDF #### [facility] [address] [place] [address] Neutrophils/100 WBC (Bld) 87.2 % Normal 40.0 - 80.0 [facility] Comment on above: Performed By: #### C BCDF #### [facility] [address] [place] [address] Nucleated RBC/100 WBC (Bld) [Ratio] 0.0 /100 WBC Normal 0.0-0.0 [facility] Comment on above: Performed By: #### C BCDF #### [facility] [address] [place] [address] Platelets (Bld) [#/Vol] 223 10*3/uL Normal 150 - 450 [facility] Comment on above: Performed By: #### C BCDF #### [facility] [address] [place] [address] RBC (Bld) [#/Vol] 2.73 x10E12/L Low 4.00 - 5.20 [facility] Comment on above: Performed By: #### C BCDF #### [facility] [address] [place] [address] WBC (Bld) [#/Vol] 14.6 10*3/uL High 4.4 - 11.3 [facility] Comment on above: Performed By: #### C BCDF #### [facility] [address] [place] [address] Daily Progress Note-Medicine on 03-10-2019 Daily Progress Note-Medicine Service: Medicine Subjective Data: BHUMIKA WHEATLEY is a 68 year old Female who is Hospital Day # 3. Overnight Events: Patient had an uneventful night. Additional Information: feels well Objective Data: Objective Information: ---- Intake and Output ----- Mn/Dy/Year [facility]Out[facility] Mar 10, 2019 6:00 [id number] Mar 09, 2019 10:00 [id number] Mar 09, 2019 2:00 [id number] The Intake and Output Totals for the last 24 hours are: IntakeOutputNet [id number] T PRBPSpO2 [id number]/6997% Date/Time03/10 7: 7: 7: 7: 7:34 Range(36.1C [...] laboratory results: Renal Function Panel Trending View [id number] 07:56:00 09-Mar-2019 07:07:00 Lab Comment:CRITICAL BUN CALLED TO KELLY FRIAS--RB 2ID, 03/10/2019 09:08 Glucose, Dqmoe352 H 128 H NA139 140 K4.4 4.6 CL103 103 Bicarbonate, Serum23 25 Anion Gap, Serum17 17 BUN94 HH 88 H CREAT2.84 H 2.66 H GFR-Non Ryhzstoy78 A 18 A GFR- Tlllelfo77 A 22 A Calcium, Serum8.7 8.7 Phosphorus, [...] 0.00 Basophil Count 0.05 Glucose_POCT Trending View [id number] 07:40:00 09-Mar-2019 20:41:00 09-Mar-2019 18:14:00 09-Mar-2019 12:04:00 Glucose-LISO208 H 263 H 130 H 110 H [...] Updated: 10-Mar-2019 12:59 by Wilberto Morgan) Normal [facility] GLUCOSE-POCTon 03-10-2019 Glucose [Mass/Vol] 155 mg/dL High 74 - 99 [facility] Comment on above: Performed By: #### E SRWS #### [facility] [address] [place] [address] Glucose [Mass/Vol] 161 mg/dL High 74 - 99 [facility] Comment on above: Performed By: #### E SRWS #### [facility] [address] [place] [address] Glucose [Mass/Vol] 137 mg/dL High 74 - 99 [facility] Comment on above: Performed By: #### C BCDF #### [facility] [address] [place] [address] Nutrition Therapy-Assessment on 03-10-2019 Nutrition Therapy-Assessment Assessment Subjective/Objective: Note Type: Assessment Note Authored by: Registered Dietitian [employer] Cutter Apprentice Pager Number: [phone] Nutrition Note: Consult received via nursing admit [...] 0.00 Basophil Count 0.05 Glucose_POCT Trending View [id number]-[id number] 07:40:00 09-Mar-2019 20:41:00 09-Mar-2019 18:14:00 09-Mar-2019 12:04:00 Glucose-IRBA073 H 263 H 130 H 110 H [...] 1 tablet(s) Oral ( every 1 week: Tue/09:00, 09:00, 09:00 ), 08-Mar-2019 LORazepam, Tablet (ATIVAN) [...] malnutrition Etiology: chronic illness Estimated Needs: kcals/day: 0045-4576 gms protein/day: 65 mL fluid/day: per MD [...] nutrition and maintaining lower sodium diet more shelter. Resource: Academy of nutrition and dietetics nutrition [...] nutrition and maintaining lower sodium diet more shelter. Resource: Academy of nutrition and dietetics nutrition [...] 14:51 by Belkis Handy (MARII, DOUG) Normal [facility] RENAL FUNCTION PANELon 03-10 Albumin [Mass/Vol] 2.9 g/dL Low 3.4 - 5.0 [facility] Comment on above: Order Comment: YANY BO BUN CALLED TO KELLY CARTY 2ID, 03/10/2019 09:08 Performed By: #### C BCDF #### [facility] [address] [place] [address] Anion gap [Moles/Vol] 17 mmol/L Normal 10 - 20 [facility] Comment on above: Order Comment: YANY BO BUN CALLED TO KELLY CARTY 2ID, 03/10/2019 09:08 Performed By: #### C BCDF #### [facility] [address] [place] [address] Calcium [Mass/Vol] 8.7 mg/dL Normal 8.6 - 10.6 [facility] Comment on above: Order Comment: YANY BO BUN CALLED TO KELLY FRIAS-RB 2ID, 03/10/2019 09:08 Performed By: #### C BCDF #### [facility] [address] [place] [address] Chloride [Moles/Vol] 103 mmol/L Normal 98 - 107 [facility] Comment on above: Order Comment: CRITI BO BUN CALLED TO KELLY FRIAS--RB 2ID, 03/10/2019 09:08 Performed By: #### C BCDF #### [facility] [address] [place] [address] Creatinine [Mass/Vol] 2.84 mg/dL High 0.50 - 1.05 [facility] Comment on above: Order Comment: CRITI BO BUN CALLED TO KELLY FRIAS-RB 2ID, 03/10/2019 09:08 Performed By: #### C BCDF #### [facility] [address] [place] [address] GFR- AM. 19 mL/min/1.73m2 Abnormal >60 [facility] Comment on above: Order Comment: CRIZACH BO BUN CALLED TO KELLY FRIAS-RB 2ID, 03/10/2019 09:08 Result Comment: CALC ULATIONS OF ESTIMATED GFR ARE PERFORMED USING THE MDRD STUDY EQUATION FOR THE IDMS-TRACEABLE CREATININE METHODS. CLIN CHEM 2007;53:766-72 Performed By: #### C BCDF #### [facility] [address] [place] [address] GFR-NON AM. 16 mL/min/1.73m2 Abnormal >60 [facility] Comment on above: Order Comment: CRITI BO BUN CALLED TO KELLY FRIAS--RB 2ID, 03/10/2019 09:08 Performed By: #### C BCDF #### [facility] [address] [place] [address] Glucose [Mass/Vol] 129 mg/dL High 74 - 99 [facility] Comment on above: Order Comment: CRITI BO BUN CALLED TO KELLY ALTAGRACIA--RB 2ID, 03/10/2019 09:08 Performed By: #### C BCDF #### [place] [address] [place] [address] HCO3 (Bld) [Moles/Vol] 23 mmol/L Normal 21 - 32 [facility] Comment on above: Order Comment: CRITI BO BUN CALLED TO KELLY ALTAGRACIA--RB 2ID, 03/10/2019 09:08 Performed By: #### C BCDF #### [facility] [address] [place] [address] Phosphate [Mass/Vol] 4.5 mg/dL Normal 2.5 - 4.9 [facility] Comment on above: Order Comment: CRITI BO BUN CALLED TO KELLY ALTAGRACIA--RB 2ID, 03/10/2019 09:08 Result Comment: The performance characteristics of phosphorus testing in heparinized plasma have been validated by the individual laboratory site where testing is performed. Testing on heparinized plasma is not approved by the FDA; however, such approval is not necessary. Performed By: #### C BCDF #### [facility] [address] [place] [address] Potassium [Moles/Vol] 4.4 mmol/L Normal 3.5 - 5.3 [facility] Comment on above: Order Comment: CRITI BO BUN CALLED TO KELLY FRIAS--RB 2ID, 03/10/2019 09:08 Performed By: #### C BCDF #### [facility] [address] [place] [address] Sodium [Moles/Vol] 139 mmol/L Normal 136 - 145 [facility] Comment on above: Order Comment: CRITI BO BUN CALLED TO KELLY ALTAGRACIA--RB 2ID, 03/10/2019 09:08 Performed By: #### C BCDF #### [facility] [address] [place] [address] Urea nitrogen [Mass/Vol] 94 mg/dL Critically high 6 - 23 [facility] Comment on above: Order Comment: CRITI BO BUN CALLED TO KELLY ALTAGRACIA--RB 2ID, 03/10/2019 09:08 Result Comment: CRIT ICAL BUN CALLED TO KELLY FRIAS--RB 2ID, 03/10/2019 09:08 Performed By: #### C BCDF #### [facility] [address] [place] [address] TAMIKA WITH REFLEX TO ENAon TAMIKA WITH REFLEX TO ULIS Positive Abnormal NEGATIVE [facility] Comment on above: Performed By: #### P TINR #### [facility] [address] [place] [address] ANTI-DNA [DS]on 03-09-2019 ANTI-DNA [DS] 2.0 IU/mL Normal [facility] Comment on above: Result Comment: REF VALUES NEGATIVE: <= 4 IU/ML EQUIVOCAL: 5- 9 IU/ML POSITIVE: >=10 IU/ML Performed By: #### D NADS ####[id number] [place] [address] C3 COMPLEMENTon 03-09-2019 C3 COMPLEMENT 68 mg/dL Low 87 - 200 [facility] Comment on above: Performed By: #### C 3 ####[id number] [place] [address] C4 COMPLEMENTon 03-09-2019 C4 COMPLEMENT <8 Abnormal 10 - 50 [facility] Comment on above: Performed By: #### C 4 ####[id number] [place] [address] CBCon 03-09-2019 Erythrocyte distribution width (RBC) [Ratio] 16.1 % High 11.5 - 14.5 [facility] Comment on above: Performed By: #### C BC ####[id number] [place] [address] Hematocrit (Bld) [Volume fraction] 25.9 % Low 36.0 - 46.0 [facility] Comment on above: Performed By: #### C BC ####[id number] [place] [address] Hemoglobin (Bld) [Mass/Vol] 8.6 g/dL Low 12.0 - 16.0 [facility] Comment on above: Performed By: #### C BC ####[id number] [place] [address] MCHC (RBC) [Mass/Vol] 33.2 g/dL Normal 32.0 - 36.0 [facility] Comment on above: Performed By: #### C BC ####[id number] [place] [address] MCV (RBC) [Entitic vol] 93 fL Normal 80 - 100 [facility] Comment on above: Performed By: #### C BC ####[id number] [place] [address] Nucleated RBC/100 WBC (Bld) [Ratio] 0.0 /100 WBC Normal 0.0-0.0 [facility] Comment on above: Performed By: #### C BC ####[id number] [place] [address] Platelets (Bld) [#/Vol] 229 10*3/uL Normal 150 - 450 [facility] Comment on above: Performed By: #### C BC ####[id number] [place] [address] RBC (Bld) [#/Vol] 2.80 x10E12/L Low 4.00 - 5.20 [facility] Comment on above: Performed By: #### C BC ####[id number] [place] [address] WBC (Bld) [#/Vol] 12.7 10*3/uL High 4.4 - 11.3 [facility] Comment on above: Performed By: #### C BC ####[id number] [place] [address] Daily Progress Note-Medicine on 03-09-2019 Daily Progress [...] ----- Mn/Dy/Year TimeIntakeOutputNet Mar 09, 2019 2:00 [id number] Mar 09, 2019 6:00 [id number] Mar 08, 2019 10:00 [id number] The Intake and Output Totals for the last 24 hours are: IntakeOutputNet [id number] Physical Exam: Constitutional: Well developed, awake/alert/oriented x3, [...] SLE nephritis: low C3, C4, +TAMIKA, +anti-SM, +anti-DENTAL SCHEDULER, +anti-chromatin ANCA: +ANCA (low positive), +PR3 (low [...] daily Signature/Cosignature/Atte station: Note Completion: Medical Student AttestationI, or a [...] this note. I personally evaluated the patient [id number] Comments/ Additional Findings Ms. Wheatley is a [...] in this setting. Electronic Signatures: Romero Montilla (MED [place]) (Signed 09-Mar-2019 16:31) Authored: Service, Assessment/Plan Review, Subjective Data, Objective Data, Assessment and Plan, Signature/Cosignature/Atte station Kaleb Duenas) (Signed 09-Mar-2019 21:30) Authored: Signature/Cosignature/Atte station Co-Signer: Assessment/Plan Review, Subjective Data, Objective Data, Assessment and Plan, Signature/Cosignature/Atte station Last Updated: 09-Mar-2019 21:30 by Kaleb Duenas) Normal [facility] Daily Progress Note-Renalon 03-09-2019 Daily Progress Note-Renal Service: Renal Subjective Data: BHUMIKA WHEATLEY is a 68 year old Female who is Hospital Day # 2. No acute overnight events, patient resting in room. Has no current symptoms besides decreased appetite, which she contributes to the renal diet. Objective Data: Objective Information: T PRBPSpO2 [id number]/6992% Date/Time03/09 7: 7: 7: 7: 7:48 Range(36C [...] 20.546 ---- Intake and Output ----- Mn/Dy/Year TimeIntakeOutOn [facility] Mar 09, 2019 6:00 [id number] Mar 08, 2019 10:00 [id number] The Intake and Output Totals for the last 24 hours are: IntakeOutputNet [id number] Physical Exam: Constitutional: Well developed, awake/alert/oriented x3, [...] Reference Range: STRAW,YELLOW Appearance, Urine HAZY Specific [place], Urine 1.008 pH, Urine 5.0 Protein, Urine [...] in situ of skin who presented to [facility] 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 She also had low C3 and C4 suggesting active phase of SLE with recent lab results indicating +TAMIKA, +anti-SM, +anti-DENTAL SCHEDULER, and +anti-chromatin. 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 She was admitted to [facility] for evaluation for plasmapheresis 1. ANCA vasculitis, [...] and slides of the kidney biopsy from [facility] to be read by pathology at [facility] - recommend chest CT to further assess [...] [place] PGY-1 Internal Medicine Renal Consults Pager [phone], doc halo Signature/Cosignature/Atte station: Note Completion: Attending [...] the note. I personally evaluated the patient [id number] Electronic Signatures: Osmin Ann) (Signed 10-Mar-2019 10:47) Authored: Signature/Cosignature/Atte station Co-Signer: Service, Subjective Data, Objective Data, Assessment and Plan, Signature/Cosignature/Atte station Evelyn [place] (Resident)) (Signed 09-Mar-2019 12:24) Authored: Service, Subjective Data, Objective Data, Assessment and Plan, Signature/Cosignature/Atte station Last Updated: 10-Mar-2019 10:47 by Osmin Ann) Normal [facility] Daily Progress Note-Rheumato logyon 03-09-2019 Daily Progress Note-Rheumatology Service: Rheumatology Subjective Data: BHUMIKA WHEATLEY is a 68 year old Female who is Hospital Day # 2. No issues overnight. 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 Pt's symptoms started about a year ago with persistent hematuria, recurrent UTIs accompanied with intermittent flank pain, fatigue, anorexia, alopecia, and weight loss. 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 Tijerina Thank you for the consult, please don't hesitate to contact me if you have any questions. Karime Logan M.D Rheumatology Fellow, PGY 5 Consult Rheumatology pager # [phone] Rheumatology Attending Pt interviewed and examined; above confirmed. The full set of data from [facility] is now available for review and we [...] the note. I personally evaluated the patient [id number] Electronic Signatures: Karime Logan (Fellow)) (Signed 09-Mar-2019 20:05) Authored: Service, Subjective Data, Objective Data, Assessment and Plan Corina Tijerina) (Signed 10-Mar-2019 08:20) Authored: Assessment and Plan, Signature/Cosignature/Atte station Co-Signer: Assessment and Plan Last Updated: 10-Mar-2019 08:20 by Corina Tijerina) Normal [facility] GLUCOSE-POCTon 03-09-2019 Glucose [Mass/Vol] 263 mg/dL High 74 - 99 [facility] Comment on above: Performed By: #### C BCDF #### [id number] [place] [address] Glucose [Mass/Vol] 130 mg/dL High 74 - 99 [facility] Comment on above: Performed By: #### G CHRIS ####[id number] [place] [address] Glucose [Mass/Vol] 110 mg/dL High 74 - 99 [facility] Comment on above: Performed By: #### G CHRIS ####[id number] [place] [address] HEPATITIS B CORE AB-TOTALon 03-09-2019 HEP. B CORE AB-TOTAL NONREACTIVE Normal NONREACTIVE [facility] Comment on above: Result Comment: Vanda ents receiving more than 5 mg/day of biotin may have interference in test results. A sample should be taken no sooner than eight hours after previous dose. Contact the testing laboratory for additional information. Performed By: #### H BCRT ####[id number], [place] HEPATITIS B SURF ABon 2018 HEP B SURF AB < 3.1 Normal <10 [facility] Comment on above: Result Comment: INTE RPRETIVE CRITERIA: <10 mIU/mL....NONREACTIVE >=10 mIU/mL...REACTIVE . Patients receiving more than 5 mg/day of biotin may have interference in test results. A sample should be taken no sooner than eight hours after previous dose. Contact the testing laboratory for additional information. Performed By: #### H BAB3 ####[id number], [place] HEPATITIS B SURFACE AGon HEP.B SURFACE AG NONREACTIVE Normal NONREACTIVE [facility] Comment on above: Result Comment: Vanda ents receiving more than 5 mg/day of biotin may have interference in test results. A sample should be taken no sooner than eight hours after previous dose. Contact the testing laboratory for additional information. Performed By: #### H BSAG ####[id number], [place] Lab Specimen Source Normal [facility] Comment on above: Performed By: #### H BSAG ####[id number], [place] Performed By: #### C 3 ####[id number], [place] Performed By: #### H BCRT ####[id number], [place] Performed By: #### C 4 ####[id number], [place] Performed By: #### H CVAB ####[id number], [place] Performed By: #### H BAB3 ####[id number] [place] [address] HEPATITIS C ABon 03-09-2019 HEPATITIS C AB NON-REACTIVE Normal NONREACTIVE [facility] [place] Comment on above: Result Comment: Vanda ents receiving more than 5 mg/day of biotin may have interference in test results. A sample should be taken no sooner than eight hours after previous dose. Contact the testing laboratory for additional information. Performed By: #### H CVAB ####[id number] [place] [address] RENAL FUNCTION PANELon 03-09 Albumin [Mass/Vol] 2.9 g/dL Low 3.4 - 5.0 [facility] Comment on above: Performed By: #### R ENAL ####[id number] [place] [address] Anion gap [Moles/Vol] 17 mmol/L Normal 10 - 20 [facility] Comment on above: Performed By: #### R ENAL ####[id number] [place] [address] Calcium [Mass/Vol] 8.7 mg/dL Normal 8.6 - 10.6 [facility] Comment on above: Performed By: #### R ENAL ####[id number] [place] [address] Chloride [Moles/Vol] 103 mmol/L Normal 98 - 107 [facility] Comment on above: Performed By: #### R ENAL ####[id number] [place] [address] Creatinine [Mass/Vol] 2.66 mg/dL High 0.50 - 1.05 [facility] Comment on above: Performed By: #### R ENAL ####[id number] [place] [address] GFR- AM. 22 mL/min/1.73m2 Abnormal >60 [facility] Comment on above: Result Comment: CALC ULATIONS OF ESTIMATED GFR ARE PERFORMED USING THE MDRD STUDY EQUATION FOR THE IDMS-TRACEABLE CREATININE METHODS. CLIN CHEM 2007;53:766-72 Performed By: #### R ENAL ####[id number] [place] [address] GFR-NON AM. 18 mL/min/1.73m2 Abnormal >60 [facility] Comment on above: Performed By: #### R ENAL ####[id number] [place] [address] Glucose [Mass/Vol] 128 mg/dL High 74 - 99 [facility] Comment on above: Performed By: #### R ENAL ####[id number] [place] [address] HCO3 (Bld) [Moles/Vol] 25 mmol/L Normal 21 - 32 [facility] Comment on above: Performed By: #### R ENAL ####[id number] [place] [address] Phosphate [Mass/Vol] 4.4 mg/dL Normal 2.5 - 4.9 [facility] Comment on above: Result Comment: The performance characteristics of phosphorus testing in heparinized plasma have been validated by the individual laboratory site where testing is performed. Testing on heparinized plasma is not approved by the FDA; however, such approval is not necessary. Performed By: #### R ENAL ####[id number] [place] [address] Potassium [Moles/Vol] 4.6 mmol/L Normal 3.5 - 5.3 [facility] Comment on above: Performed By: #### R ENAL ####[id number] [place] [address] Sodium [Moles/Vol] 140 mmol/L Normal 136 - 145 [facility] Comment on above: Performed By: #### R ENAL ####[id number] [place] [address] Urea nitrogen [Mass/Vol] 88 mg/dL High 6 - 23 [facility] Comment on above: Performed By: #### R ENAL ####[id number] [place] [address] Admission Risk Screen - Adul ton 03-08-2019 [...] AvailabilityLiving Will not available now Living Will [id number] Falls Screen: Type of Assessmentadmission Moderate Risk Factorspatient care equipment (scds, ivs, chest tubes, gerber, etc) Risk for Injury Associated with Fallnone Fall Risk Conclusionmoderate falls risk with low risk for associated injury [place] Safety InterventionsWDL *orient to call system *instruct [...] instruction; verbal instruction Cultural Considerationsnone Developmental Considerationsnone Taoist Considerationsreligious considerations Hindu Learning Assessment (Other Learner): Other learner availableno [...] Spiritual Screen: Are there any cultural, spiritual, spiritism practices/values/needs that are important for us to knowno Do you want a visit/item from Pastoral Careyes Is there any particular item/ help you need from Pastoral CareCommunion, prayer / pastoral support CAGE: Is this an injured patient at a Trauma Center (KRISTI/Sharad/Елена/Xiomara/Bharti Salinas): no Vaccinations: Vaccination - Influenza Vaccination [...] Injury Present on Admissionno Electronic Signatures: Mariposa Vincent (ROWDY) (Signed 08-Mar-2019 13:36) Authored: Admission Risk Screens, Vaccinations, Morgan, Pressure Injury Last Updated: 08-Mar-2019 13:36 by Mariposa Vincent (ROWDY) Normal [facility] C-REACTIVE PROTEINon 25-2 019 CRP [Mass/Vol] 0.66 mg/dL Normal [facility] Comment on above: Result Comment: REF VALUE < 1.00 Performed By: #### C RP #### [facility] [id number] [place] [address] CBC AND DIFFERENTIALon 03-08 % AUTOMATED IMMATURE GRAN 3.7 % High 0.0 - 0.9 [facility] Comment on above: Result Comment: Perc ent differential counts (%) should be interpreted in the context of the absolute cell counts (cells/L). Performed By: #### C BCDF #### [facility] [address] [place] [address] Basophils (Bld) [#/Vol] 0.05 10*3/uL Normal 0.00 - 0.10 [facility] Comment on above: Performed By: #### C BCDF #### [facility] [address] [place] [address] Basophils/100 WBC (Bld) 0.3 % Normal 0.0 - 2.0 [facility] Comment on above: Performed By: #### C BCDF #### [facility] [address] [place] [address] Eosinophils (Bld) [#/Vol] 0.00 10*3/uL Normal 0.00 - 0.70 [facility] Comment on above: Performed By: #### C BCDF #### [facility] [address] [place] [address] Eosinophils/100 WBC (Bld) 0.0 % Normal 0.0 - 6.0 [facility] Comment on above: Performed By: #### C BCDF #### [facility] [address] [place] [address] Erythrocyte distribution width (RBC) [Ratio] 16.1 % High 11.5 - 14.5 [facility] Comment on above: Performed By: #### C BCDF #### [facility] [address] [place] [address] Hematocrit (Bld) [Volume fraction] 28.3 % Low 36.0 - 46.0 [facility] Comment on above: Performed By: #### C BCDF #### [facility] [address] [place] [address] Hemoglobin (Bld) [Mass/Vol] 9.3 g/dL Low 12.0 - 16.0 [facility] Comment on above: Performed By: #### C BCDF #### [facility] [address] [place] [address] Lymphocytes (Bld) [#/Vol] 0.49 10*3/uL Low 1.20 - 4.80 [facility] Comment on above: Performed By: #### C BCDF #### [facility] [address] [place] [address] Lymphocytes/100 WBC (Bld) 3.0 % Normal 13.0 - 44.0 [facility] Comment on above: Performed By: #### C BCDF #### [facility] [address] [place] [address] MCHC (RBC) [Mass/Vol] 32.9 g/dL Normal 32.0 - 36.0 [facility] Comment on above: Performed By: #### C BCDF #### [facility] [address] [place] [address] MCV (RBC) [Entitic vol] 93 fL Normal 80 - 100 [facility] Comment on above: Performed By: #### C BCDF #### [facility] [address] [place] [address] Monocytes (Bld) [#/Vol] 1.21 10*3/uL High 0.10 - 1.00 [facility] Comment on above: Performed By: #### C BCDF #### [facility] [address] [place] [address] Monocytes/100 WBC (Bld) 7.5 % Normal 2.0 - 10.0 [facility] Comment on above: Performed By: #### C BCDF #### [facility] [address] [place] [address] Neutrophils (Bld) [#/Vol] 13.74 10*3/uL High 1.20 - 7.70 [facility] Comment on above: Performed By: #### C BCDF #### [facility] [address] [place] [address] Neutrophils/100 WBC (Bld) 85.5 % Normal 40.0 - 80.0 [facility] Comment on above: Performed By: #### C BCDF #### [facility] [address] [place] [address] Nucleated RBC/100 WBC (Bld) [Ratio] 0.0 /100 WBC Normal 0.0-0.0 [facility] Comment on above: Performed By: #### C BCDF #### [facility] [address] [place] [address] Platelets (Bld) [#/Vol] 256 10*3/uL Normal 150 - 450 [facility] Comment on above: Performed By: #### C BCDF #### [facility] [address] [place] [address] RBC (Bld) [#/Vol] 3.05 x10E12/L Low 4.00 - 5.20 [facility] Comment on above: Performed By: #### C BCDF #### [facility] [address] [place] [address] WBC (Bld) [#/Vol] 16.1 10*3/uL High 4.4 - 11.3 [facility] Comment on above: Performed By: #### C BCDF #### [facility] [address] [place] [address] COMPREHENSIVE PANELon 2018 Albumin [Mass/Vol] 3.2 g/dL Low 3.4 - 5.0 [facility] Comment on above: Performed By: #### C MP #### [facility] [address] [place] [address] ALP [Catalytic activity/Vol] 46 U/L Normal 33 - 136 [facility] Comment on above: Performed By: #### C MP #### [facility] [address] [place] [address] ALT [Catalytic activity/Vol] 15 U/L Normal 7 - 45 [facility] Comment on above: Result Comment: Vanda ents treated with Sulfasalazine may generate falsely decreased results for ALT. Performed By: #### C MP #### [facility] [address] [place] [address] Anion gap [Moles/Vol] 16 mmol/L Normal 10 - 20 [facility] Comment on above: Performed By: #### C MP #### [facility] [address] [place] [address] AST [Catalytic activity/Vol] 11 U/L Normal 9 - 39 [facility] Comment on above: Performed By: #### C MP #### [facility] [address] [place] [address] Bilirubin [Mass/Vol] 0.7 mg/dL Normal 0.0 - 1.2 [facility] Comment on above: Performed By: #### C MP #### [facility] [address] [place] [address] Calcium [Mass/Vol] 8.9 mg/dL Normal 8.6 - 10.6 [facility] Comment on above: Performed By: #### C MP #### [facility] [address] [place] [address] Chloride [Moles/Vol] 102 mmol/L Normal 98 - 107 [facility] Comment on above: Performed By: #### C MP #### [facility] [address] [place] [address] Creatinine [Mass/Vol] 2.68 mg/dL High 0.50 - 1.05 [facility] Comment on above: Performed By: #### C MP #### [facility] [address] [place] [address] GFR- AM. 22 mL/min/1.73m2 Abnormal >60 [facility] Comment on above: Result Comment: CALC ULATIONS OF ESTIMATED GFR ARE PERFORMED USING THE MDRD STUDY EQUATION FOR THE IDMS-TRACEABLE CREATININE METHODS. CLIN CHEM 2007;53:766-72 Performed By: #### C MP #### [facility] [address] [place] [address] GFR-NON AM. 18 mL/min/1.73m2 Abnormal >60 [facility] Comment on above: Performed By: #### C MP #### [facility] [address] [place] [address] Glucose [Mass/Vol] 116 mg/dL High 74 - 99 [facility] Comment on above: Performed By: #### C MP #### [facility] [address] [place] [address] HCO3 (Bld) [Moles/Vol] 26 mmol/L Normal 21 - 32 [facility] Comment on above: Performed By: #### C MP #### [facility] [address] [place] [address] Potassium [Moles/Vol] 4.0 mmol/L Normal 3.5 - 5.3 [facility] Comment on above: Performed By: #### C MP #### [facility] [address] [place] [address] Protein [Mass/Vol] 6.4 g/dL Normal 6.4 - 8.2 [facility] Comment on above: Performed By: #### C MP #### [facility] [address] [place] [address] Sodium [Moles/Vol] 140 mmol/L Normal 136 - 145 [facility] Comment on above: Performed By: #### C MP #### [facility] [address] [place] [address] Urea nitrogen [Mass/Vol] 87 mg/dL High 6 - 23 [facility] Comment on above: Performed By: #### C MP #### [facility] [address] [place] [address] Clinical Event Note-Senior R jyotsnadent Staffing Noteon 03-08-2019 Clinical Event Note-Senior Resident [...] proteinuria, after which she was admitted to [facility] for workup. over there workup showed +ve TAMIKA, +ve anti-SM, +ve anti-DENTAL SCHEDULER, +ve anti-chromatin, low C3 and C4 and +ve ANCA and PR3. a kidney biopsy was done which showed predominantly crescent formation with focal endocapillary proliferation (NIH lupus nephritis activity score 7/24, chronicity score 6/). the patient was started on methylprednisolone 1000 mg x 3 days followed by prednisone 60 g wong and cyclophosphamide 50 mg BID. She was also started on bactrim for PCP prophylaxis and received procrit 30029 units for her anemia. Patient continued to have worsening kidney function and was transferred here for further assessment and consideration of plasmapheresis. 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 and hx thyroid cancer s/p thyroidectomy who was transferred to [facility] from [facility] for newly diagnosed ANCA Vasculitis with worsening [...] within working hours otherwise [place] team pager [phone] Electronic Signatures: Sunny Chen (Resident)) (Signed 08-Mar-2019 13:39) Authored: Event Last Updated: 08-Mar-2019 13:39 by Sunny Chen (Resident)) Normal [facility] Clinical Intervention - Jone thakur [...] 08-Mar-2019 14:09 by Abby Jeffery (PH) Normal [facility] Consult-Renalon 03-08-2019 Consult-Renal Service: Service: Renal Consult: Consult requested by (Attending Name): Dr Duenas Reason: HERLINDA History of Present Illness: HPI: Bhumika Wheatley is a 68yo F with PMHx stage 1 IDC (T1N0M0) s/p lumpectomy and radiotion in 1992, hx thyroid cancer s/p thyroidectomy, kidney stones, 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 Her PCP did start her on oral steroids until clinical program manager appointment. She was seen in her [place] [employer] [facility], Dr. 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 She originally was admitted to [facility] on 03/01 for evaluation of likely SLE [...] downtrended to 2.61 on transfer from OSH. Kidney biopsy revealed predominantly crescent formation with [...] no illicit drug use. lives with in [place] allergies: penicillins, iodinated contrast oral and IV home meds: levothyroxine 100 mcg PO qday Allergies: contrast (specific type unknown): Anaphylaxis penicillin: Unknown Objective: Objective Information: T PRBPSpO2 [id number]/37314% Date/Time03/08 14: 14: 14: 14: 14:45 Range(36.1C [...] in situ of skin who presented to [facility] 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 She also had low C3 and C4 suggesting active phase of SLE with recent lab results indicating +TAMIKA, +anti-SM, +anti-DENTAL SCHEDULER, and +anti-chromatin. 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 She was admitted to [facility] for evaluation for plasmapheresis 1. ANCA vasculitis, [...] [place] PGY-1 Internal Medicine Renal Consults Pager [phone], doc halo Signature/Cosignature/Atte station: Note Completion: Attending [...] the note. I personally evaluated the patient [id number] Electronic Signatures: Osmin Ann) (Signed 10-Mar-2019 11:10) Authored: Service, Signature/Cosignature/Atte station Co-Signer: Service, History of Present Illness, Allergies, Objective, Assessment/Recommendations , Signature/Cosignature/Atte station Evelyn [place] (Resident)) (Signed 08-Mar-2019 16:39) Authored: Service, History of Present Illness, Allergies, Objective, Assessment/Recommendations , Signature/Cosignature/Atte station Last Updated: 10-Mar-2019 11:10 by Osmin Ann) Normal [facility] Consult-Rheumatologyon 03-08 Consult-Rheumatolo gy Service: Service: Rheumatology History of Present Illness: HPI: 68yo F with PMHx stage 1 IDC (T1N0M0) s/p lumpectomy and radiation in 1992, hx thyroid cancer s/p thyroidectomy, kidney stones, 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 Her PCP did start her on oral steroids until she was seen by nephrology, she had low C3 and C4 with elevated creatinine to 3.2 (baseline 0.7-1.0 at end of 2017), concerning for active lupus nephritis and kidney failure. Pt was admitted to [facility] on 03/01 for evaluation of likely SLE [...] then downtrended to 2.61 on transfer from [facility]. Currently pt denies any malar rash, joint [...] no illicit drug use. lives with in [place] allergies: penicillins, iodinated contrast oral and IV home meds: levothyroxine 100 mcg PO qday Allergies: contrast (specific type unknown): Anaphylaxis penicillin: Unknown Allergies: contrast (specific type unknown): Anaphylaxis penicillin: Unknown Objective: Objective Information: T PRBPSpO2 [id number]% Date/Time03/08 19: 19: 19: 19: 19:33 Range(36.1C [...] Reference Range: STRAW,YELLOW Appearance, Urine HAZY Specific [place], Urine 1.008 pH, Urine 5.0 Protein, Urine [...] of PMR 2011, who was transferred from [facility] 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 Pt's symptoms started about a year ago with persistent hematuria, recurrent UTIs accompanied with intermittent flank pain, fatigue, anorexia, alopecia, and weight loss. No symptoms of active SLE other than fatigue and alopecia, no typical Hx of GPA Had +TAMIKA, +anti-SM, +anti-DENTAL SCHEDULER, and +anti-chromatin antibodies, low C3 and C4, [...] Fellow, PGY 5 Consult Rheumatology pager # [phone] Rheumatology Attending Pt interviewed and examined; records from [facility] reviewed including the renal biopsy report. At this point glomerular injury due to an ANCA-associated vasculitis seems more likely than SLE but some of the laboratory tests from [facility] are not in the available records. Will [...] the note. I personally evaluated the patient [id number] Electronic Signatures: Karime Logan (Fellow)) (Signed 08-Mar-2019 20:53) Authored: Service, History of Present Illness, Allergies, Objective, Assessment/Recommendations Corina Tijerina) (Signed 09-Mar-2019 10:58) Authored: Assessment/Recommendations , Signature/Cosignature/Atte station Co-Signer: Service, History of Present Illness, Allergies, Objective, Assessment/Recommendations Last Updated: 09-Mar-2019 10:58 by Corina Tijerina) Normal [facility] Discharge Planning Noteon Discharge Planning Note Patient Learning: Factors that Impact Ability to Learnnone(1) Other Factors: Functional Screen: In the recent/past 2-4 weeks, patient or family have noticedno issues that require a rehabilitation consult at this time(1) Discharge Planning: Discharge Plannin03/08/19 discharge planning note patient arrived to [place] [address] from [facility]. lives in [place] with . anticipating being discharged home with no needs. patient has cell phone, wallet and purse, glasses on her face and clothing. patient ambulates well. will continue to monitor. Mariposa vincent RN (03/09/19)([phone])Transitiona l Care Coordination Progress Note: Patient discussed during interdisciplinary rounds. Team members present: TCC, ABIEL-TOREY Tolliver-Lidya Plan per Rosetta team: Pt will need CT abd/pelvis and need to monitor pt's K levels Discharge disposition: home Potential Barriers: NMR ADOD: 03/12 Kylee Corrales RN 03/12/19 1310 [facility] [employer] Note Attempted to meet pt but pt off the floor at this time. Will attempt to meet pt another time. Kylee Corrales RN 03/13/19 1240 Trans[facility] [employer] [employer] Note Met with patient and introduced myself as a Trans[facility] [employer] [employer] Tinner. Address, phone, and emergency contact verified. Patient lives at home with her , Corina ([phone]) who is pts primary support person. Pt ambulatory and denies use of assistive devices, denies having any recent falls, and feels safe at home. Pt denies rehab/snf in past and denies home care services. Pts PCP is Dr. Cano and the pharmacy pt uses is [facility] in [place]. Pt has transportation to her medical appointments. [...] Risk Screen - Adult 08-Mar-2019 13:29 Normal [facility] GLUCOSE-POCTon 03-08-2019 Glucose [Mass/Vol] 236 mg/dL High 74 - 99 [facility] Comment on above: Performed By: #### G CHRIS ####[id number] [place] [address] History and Physicalon 03-08 History and Physical History of Present Illness: HPI: Ms. Wheat[place] is a 68 year old female who is admitted here from [facility] for management of SLE nephritis vs ANCA [...] 2017). Further lab work-up demonstrated +TAMIKA, +anti-Sm, anti-DENTAL SCHEDULER, and +anti-chromatin antibodies. Labs also demonstrated low C3 (unclear value), low C4 (unclear value) , with elevated Cr (3.2) (suggestive of lupus nephritis), and was subsequently admitted for concern for nephritis (lupus) vs vasculitis. [facility] admission to [facility], Cr was 3.57 and was started on [...] the glomeruli and no significant extraglomerular staining. [place] and lambda stain were equally shown throughout the tubulointerstitium. 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 Patient was also hypertensive on admission (SBP 170s) and was reduced to 130s after starting on amlodipine 10mg/daily. Bactrim was started for PCP prophylaxis. On admission to [facility], pt report no symptoms associated with lupus [...] no illicit drug use. lives with in [place] allergies: penicillins, iodinated contrast oral and IV home meds: levothyroxine 100 mcg PO qday Allergies: contrast (specific type unknown): Anaphylaxis penicillin: Unknown Medications Prior to Admission: levothyroxine 100 mcg (0.1 mg) oral tablet: 1 tab(s) orally once a day. Objective: Objective Information: T PRBPSpO2 [id number]/57060% Date/Time03/08 14: 14: 14: 14: 14:45 Range(36.1C - 36.3C ) (81 - 86 ) (18 - 18 ) (117 - 126 )/ (67 - 71 ) (97% - 100% ) ---- Intake and Output ----- Mn/Dy/Year TimeIntakeOutputNet Mar 09, 2019 6:00 [id number] Mar 08, 2019 10:00 [id number] The Intake and Output Totals for the last 24 hours are: IntakeOutputNet [id number] Physical Exam: Constitutional: Well developed, awake/alert/oriented x3, [...] Reference Range: STRAW,YELLOW Appearance, Urine HAZY Specific [place], Urine 1.008 pH, Urine 5.0 Protein, Urine [...] SLE nephritis: low C3, C4, +TAMIKA, +anti-SM, +anti-DENTAL SCHEDULER, +anti-chromatin ANCA: +ANCA, +PR3 - Prophylaxis: Bactrim, [...] this note. I personally evaluated the patient [id number] Comments/ Additional Findings Ms. Wheatley is a [...] OnlyCurrent Admission Order. Admit to Inpatient Adult [facility] Admitting Diagnosis, M32.14 Lupus nephritis Admitting Service, [...] Updated: 09-Mar-2019 15:48 by Kaleb Duenas) Normal [facility] PT/INRon 03-08-2019 INR Coag (PPP) [Relative time] 1.0 {INR} Normal 0.9 - 1.1 [facility] Comment on above: Performed By: #### P TINR #### [facility] [id number] [place] [id number] PT Coag (PPP) [Time] 10.9 s Normal 9.7 - 12.7 [facility] Comment on above: Performed By: #### P TINR #### [facility] [address] [place] [address] Patient Profile - Adult v2on 03-08-2019 Patient Profile - Adult v2 Profile: Initial Info: How to be AddressedSusan Spoken Language PreferredEnglish Are you currently using the Personal Electronic Health Record or myParcelDeliveryno Are you interested in learning more about [facility] for the management of your healthdeclined Stated Reason for Admissionkept losing weight and nothing tasted good and pain in the kidney Primary Contact Name and NumberCorina Wheatley [phone] Other Contact Names and NumbersFelipe Wheatley(son) [phone] katrin khan (daughter) [phone] [place] Belongingsremains with patient Patient Belongings Remaining with Patientclothing; purse/wallet; jewelry; vision aids Medications Brought to Hospitalno Wants Family/Rep Notified of Admissionyes, primary contact General Health: Weight in kg52.6 kilogram(s) Weight in yok620 pound(s) Height in feet5 feet Height in inches3 inch(es) Height in cm160 centimeter(s) BMI (kg/m2)20.546 square meter Weight Methodactual (measured) Scale Typebed Height Methodstated [facility] Based Care: How would you like to [...] Withspouse Living Arrangementshouse Resource/Environmental Concernsnone Anticipated Transition [place] [facility] Anticipated at Transitionnone Significant IndicatorsComplete Information Review: Allergies, Home Meds [...] 08-Mar-2019 13:29 by Mariposa Vincent (ROWDY) Normal [facility] SEDIMENTATION RATE, ERYTHROC YTEon 03-08-2019 SEDIMENTATION RATE, ERYTHROCYTE 33 mm/h High 0 - 30 [facility] Comment on above: Performed By: #### E SRWS #### [facility] [address] [place] [address] SODIUM, URINE SPOTon 019 CREATININE,URINE 48.8 mg/dL Normal 20.0 - 320.0 [facility] Comment on above: Performed By: #### S ODS2 ####[id number] [place] [address] Sodium (U) [Moles/Vol] 33 mmol/L Normal Not Established [facility] Comment on above: Performed By: #### S ODS2 ####[id number] [place] [address] SODIUM/CREAT RATIO 68 mmol/g Creat Normal Not Established [facility] Comment on above: Performed By: #### S ODS2 ####[id number], [place] TH CHEST 2 VIEW PA AND LATon 03-08-2019 TH CHEST 2 VIEW PA AND LAT Patient Name: BHUMIKA WHEATLEY STUDY: TH CHEST 2 VIEW PA AND LAT; 03/08/2019 6:55 pm INDICATION: work up of c-ANCA vasculitis. COMPARISON: None. ACCESSION NUMBER(S): [id number] ORDERING CLINICIAN: SUNNY VICENTE FINDINGS: CARDIOMEDIASTINAL SILHOUETTE: [...] Electronically signed by: Caprice ESTRADA MD Normal [facility] THYROXINE,FREEon 03-08-2019 THYROXINE,FREE 1.85 ng/dL High 0.78 - 1.48 [facility] Comment on above: Result Comment: Thyr oxine Free testing is performed using different testing methodology at [facility] than at other [facility]. Direct result comparisons should only be made within the same method. . Patients receiving more than 5 mg/day of biotin may have interference in test results. A sample should be taken no sooner than eight hours after previous dose. Contact [phone] for additional information. Performed By: #### T 4FRE ####[id number] [place] [address] TSH WITH REFLEX TO FREE T4 I F ABNORMALon 03-08-2019 TSH Qn 0.15 m[IU]/L Low 0.44 - 3.98 [facility] Comment on above: Result Comment: TSH testing is performed using different testing methodology at [facility] than at other [facility]. Direct result comparisons should only be made within the same method. . Patients receiving more than 5 mg/day of biotin may have interference in test results. A sample should be taken no sooner than eight hours after previous dose. Contact [phone] for additional information. Performed By: #### T HYDS ####[id number] [place] [address] UA MICROSCOPICon 03-08-2019 BACTERIA 1+ /HPF Abnormal [facility] Comment on above: Performed By: #### U AMIC ####[id number] [place] [address] RBC 56 /HPF Abnormal 0-5 [facility] Comment on above: Performed By: #### U AMIC ####[id number] [place] [address] SQUAMOUS EPITH. CELLS 1 /HPF Normal [facility] Comment on above: Performed By: #### U AMIC ####[id number] [place] [address] WBC 10 /HPF Abnormal 0-5 [facility] Comment on above: Performed By: #### U AMIC ####[id number] [place] [address] URINALYSISon 03-08-2019 Appearance (U) HAZY Normal CLEAR [facility] Comment on above: Performed By: #### U A ####[id number] [place] [address] Bilirubin (U) [Mass/Vol] Negative Normal NEGATIVE [facility] Comment on above: Performed By: #### U A ####[id number] [place] [address] BLOOD LARGE (3+) Abnormal NEGATIVE [facility] Comment on above: Performed By: #### U A ####[id number] [place] [address] Color (U) YELLOW Normal STRAW,YELLOW [facility] Comment on above: Performed By: #### U A ####[id number] [place] [address] Glucose [Mass/Vol] >=500 (3+) Abnormal NEGATIVE [facility] Comment on above: Performed By: #### U A ####[id number] [place] [address] Ketones Ql (U) Negative Normal NEGATIVE [facility] Comment on above: Performed By: #### U A ####[id number] [place] [address] Leukocyte esterase Test strip Ql (U) Negative Normal NEGATIVE [facility] Comment on above: Performed By: #### U A ####[id number] [place] [address] Nitrite Ql (U) Negative Normal NEGATIVE [facility] Comment on above: Performed By: #### U A ####[id number] [place] [address] pH (Bld) 5.0 Normal 5.0 - 8.0 [facility] Comment on above: Performed By: #### U A ####[id number] [place] [address] Protein (U) [Mass/Vol] 100 (2+) Abnormal NEGATIVE [facility] Comment on above: Performed By: #### U A ####[id number] [place] [address] Specific gravity (U) [Rel density] 1.008 Normal 1.005 - 1.035 [facility] Comment on above: Performed By: #### U A ####[id number] [place] [address] Urobilinogen Qn (U) <2.0 Normal 0.0 - 1.9 [facility] Comment on above: Performed By: #### U A ####[id number] [place] [address] CNOVon 10-19-2018 CNOV Office Visit (RADTSA ) -- BHUMIKA WHEATLEY ([id number]) 1950 F Date Time Provider Department 10/19/18 [...] M.D., FACRO ? cc: Espinoza Melo MD [address] [facility] [place] [address] ? Mayi Adams MD [facility] [address] [place] [address] ? This note was dictated with Dragon Naturally Speaking and may contain some grammatical errors due to limitations of the software. Kitty Dent MA, was present in the examination room throughout the encounter. Referring Provider: MAYI ADAMS [[id number]] Allergies As of Date: 10/19/2018 (No Known Allergies) Date Reviewed: 10/19/2018 Reviewed by: Kitty (Sales Solutions Associate) ROWDY Dent - Fully Assessed Reason for Visit: Radiotherapy On-treatment Visit [1722] Primary Visit Diagnosis:History of breast cancer [Z85.3] Order(s):[facility] DIAGNOSTIC BILAT [[id number]] Order #: [id number] FUTURE Prescriptions as of 10/19/2018 Sig: LEVOTHYROXINE [...] Status:Closed by MAYI ADAMS MD on 10/19/18 Normal [facility] PROGRESSon 10-19-2018 Protein mass conc HNO ID: [id number] Author: Mayi Adams Service: ? Author Type: [...] examination. ? Signed by: May[facility] Adams M.D., [facility] ? cc: Espinoza Melo MD [address] [place] [phone] ? Mayi Adams [facility] [address] [place] [address] ? This note was dictated with Alen Naturally Speaking and may contain some grammatical errors due to limitations of the software. Kitty Dent MA, was present in the examination room throughout the encounter. Normal [facility] Vital Signs Date Time Vital Sign Value Performing Clinician Facility 08-07-2023 12:07-0500 Body temperature 98.1 [degF] Stuart Urias MD Work Phone: [facility] 08-07-2023 12:07-0500 Diastolic blood pressure 56 mm[Hg] Stuart Urias MD Work Phone: [employer] 08-07-2023 12:07-0500 Heart rate 68 /min Stuart Urias MD Work Phone: [employer] 08-07-2023 12:07-0500 Respiratory rate 16 /min Stuart Urias MD Work Phone: [employer] 08-07-2023 12:07-0500 SaO2% (BldA) [Mass fraction] 94 % Stuart Urias MD Work Phone: [employer] 08-07-2023 12:07-0500 Systolic blood pressure 120 mm[Hg] Stuart Urias MD Work Phone: [employer] 08-03-2023 23:15-0500 Body height 160 cm Stuart Urias MD Work Phone: [employer] 08-03-2023 23:15-0500 Body mass index (BMI) [Ratio] 23.12 kg/m2 Stuart Urias MD Work Phone: [employer] 08-03-2023 23:15-0500 Body weight 59.2 kg Stuart Urias MD Work Phone: [employer] 05-05-2023 11:20-0400 Body height 160.02 cm Ania Arnaldo Other [facility] Other 05-05-2023 11:20-0400 Body mass index (BMI) [Ratio] 24.8 kg/m2 Ania Arnaldo Other [facility] Other 05-05-2023 11:20-0400 Body temperature 96.5 [degF] Ania Arnaldo Other [facility] Other 05-05-2023 11:20-0400 Body weight 63.5 kg Ania Arnaldo Other [facility] Other 05-05-2023 11:20-0400 Diastolic blood pressure 62 mm[Hg] Ania Arnaldo Other [facility] Other 05-05-2023 11:20-0400 Respiratory rate 18 /min Ania Arnaldo Other [facility] Other 05-05-2023 11:20-0400 SaO2% (BldA) [Mass fraction] 99 % Ania Arnaldo Other [facility] Other 05-05-2023 11:20-0400 Systolic blood pressure 101 mm[Hg] Ania Arnaldo Other [facility] Other 12-27-2022 15:40-0400 Body height 160.02 cm Ania Arnaldo Other [facility] Other 12-27-2022 15:40-0400 Body mass index (BMI) [Ratio] 26.18 kg/m2 Ania Arnaldo Other [facility] Other 12-27-2022 15:40-0400 Body temperature 97.1 [degF] Ania Arnaldo Other [facility] Other 12-27-2022 15:40-0400 Body weight 67.04 kg Ania Arnaldo Other [facility] Other 12-27-2022 15:40-0400 Diastolic blood pressure 79 mm[Hg] Ania Arnaldo Other [facility] Other 12-27-2022 15:40-0400 Respiratory rate 18 /min Ania Arnaldo Other [facility] Other 12-27-2022 15:40-0400 SaO2% (BldA) [Mass fraction] 96 % Ania Arnaldo Other [facility] Other 12-27-2022 15:40-0400 Systolic blood pressure 132 mm[Hg] Ania Arnaldo Other [facility] Other 05-19-2022 10:40-0400 Body height 160.02 cm Ania Arnaldo Other [facility] Other 05-19-2022 10:40-0400 Body mass index (BMI) [Ratio] 25.82 kg/m2 Ania Arnaldo Other [facility] Other 05-19-2022 10:40-0400 Body temperature 96.1 [degF] Ania Arnaldo Other [facility] Other 05-19-2022 10:40-0400 Body weight 66.13 kg Ania Arnaldo Other [facility] Other 05-19-2022 10:40-0400 Diastolic blood pressure 75 mm[Hg] Ania Arnaldo Other [facility] Other 05-19-2022 10:40-0400 Respiratory rate 18 /min Ania Arnaldo Other [facility] Other 05-19-2022 10:40-0400 SaO2% (BldA) [Mass fraction] 95 % Ania Arnaldo Other [facility] Other 05-19-2022 10:40-0400 Systolic blood pressure 134 mm[Hg] Ania Arnaldo Other [facility] Other 01-28-2022 11:00-0400 Body height 160.02 cm Ania Arnaldo Other [facility] Other 01-28-2022 11:00-0400 Body mass index (BMI) [Ratio] 26.82 kg/m2 Ania Arnaldo Other [facility] Other 01-28-2022 11:00-0400 Body temperature 96.7 [degF] Ania Arnaldo Other [facility] Other 01-28-2022 11:00-0400 Body weight 68.68 kg Ania Arnaldo Other [facility] Other 01-28-2022 11:00-0400 Diastolic blood pressure 85 mm[Hg] Ania Arnaldo Other [facility] Other 01-28-2022 11:00-0400 Respiratory rate 18 /min Ania Arnaldo Other [facility] Other 01-28-2022 11:00-0400 SaO2% (BldA) [Mass fraction] 98 % Ania Arnaldo Other [facility] Other 01-28-2022 11:00-0400 Systolic blood pressure 135 mm[Hg] Ania Arnaldo Other [facility] Other 09-29-2021 11:00-0500 Body height 160.02 cm Ania Arnaldo Other [facility] Other 09-29-2021 11:00-0500 Body mass index (BMI) [Ratio] 27.28 kg/m2 Ania Arnaldo Other [facility] Other 09-29-2021 11:00-0500 Body temperature 96.2 [degF] Ania Arnaldo Other [facility] Other 09-29-2021 11:00-0500 Body weight 69.85 kg Ania Arnaldo Other [facility] Other 09-29-2021 11:00-0500 Diastolic blood pressure 88 mm[Hg] Ania Arnaldo Other [facility] Other 09-29-2021 11:00-0500 Respiratory rate 18 /min Ania Arnaldo Other [facility] Other 09-29-2021 11:00-0500 SaO2% (BldA) [Mass fraction] 97 % Ania Arnaldo Other [facility] Other 09-29-2021 11:00-0500 Systolic blood pressure 141 mm[Hg] Ania Arnaldo Other [facility] Other 06-30-2021 11:00-0500 Body height 160.02 cm Ania Arnaldo Other [facility] Other 06-30-2021 11:00-0500 Body mass index (BMI) [Ratio] 26.85 kg/m2 Ania Arnaldo Other [facility] Other 06-30-2021 11:00-0500 Body temperature 96.2 [degF] Ania Arnaldo Other [facility] Other 06-30-2021 11:00-0500 Body weight 68.77 kg Ania Arnaldo Other [facility] Other 06-30-2021 11:00-0500 Diastolic blood pressure 72 mm[Hg] Ania Arnaldo Other [facility] Other 06-30-2021 11:00-0500 Respiratory rate 18 /min Ania Arnaldo Other [facility] Other 06-30-2021 11:00-0500 SaO2% (BldA) [Mass fraction] 96 % Ania Arnaldo Other [facility] Other 06-30-2021 11:00-0500 Systolic blood pressure 140 mm[Hg] Ania Arnaldo Other [facility] Other Encounters Encounter Date Encounter Type Care Provider Facility [facility]: [facility]: 08-18-[facility]23 End: 08-23-2023 ambulatory DORCAS MITCHELL [facility] Start: 08-17-2023 ambulatory ESPINOZA MELO [facility] Start: 08-16-2023 End: [facility]: 08-13-[facility]23 End: 08-23-2023 Emergency department patient visit TRENA Mcpherson [facility] Start: 08-13-2023 End: 08-23-2023 Evaluation and management of inpatient TRENA Mcpherson [facility] Start: 08-12-2023 End: 08-13-2023 ambulatory YESSY PACKER [facility] Start: 08-04-2023 End: 08-04-2023 Subsequent hospital visit by physician Harriet Goodman MD Work Phone: [facility] Start: 08-03-2023 End: 08-07-2023 Evaluation and management of inpatient ESPINOZA [facility] [place] Start: 08-03-2023 End: 08-07-2023 Evaluation and management of inpatient Stuart Urias MD Work Phone: [facility] Comment on above: Syncope and collapse (Primary Dx) Start: 07-28-2023 End: 07-29-2023 ambulatory [facility] Start: 07-27-2023 End: 07-28-2023 ambulatory [facility] Start: 07-27-2023 End: 07-27-2023 Subsequent hospital visit by physician Harriet Goodman MD Work Phone: [facility] Start: 07-19-2023 End: 07-20-2023 ambulatory [facility] Start: 07-18-2023 End: 07-21-2023 ambulatory VY [facility] Start: 07-05-2023 End: 07-06-2023 ambulatory [facility] Start: 06-30-2023 End: 07-01-2023 ambulatory [facility] Start: 06-23-2023 End: 06-24-2023 ambulatory [facility] Start: 06-21-2023 End: 06-22-2023 ambulatory [facility] Start: 06-15-2023 ambulatory ESPINOZA [facility] [place] Start: 2023 End: 06-15-2023 ambulatory VY [facility] [place] Start: 06-09-2023 End: 06-10-2023 ambulatory ESPINOZA [facility] [place] Start: 05-17-2023 End: 05-17-2023 ambulatory Ania Arnaldo Other [facility] Other Start: 05-17-2023 Telephone encounter Ania Arnaldo [facility] Start: 05-13-2023 End: 05-16-2023 ambulatory AUNDREA MIXON [facility] Start: 05-11-2023 End: 05-11-2023 ambulatory Ania Arnaldo Other [facility] Other Start: 05-11-2023 Telephone encounter Ania Arnaldo [facility] Start: 05-10-2023 End: 05-11-2023 ambulatory ESPINOZA MELO [facility] Start: 05-05-2023 End: 05-05-2023 ambulatory Ania Arnaldo Other [facility] Other Start: 05-05-2023 Office outpatient visit 25 minutes Ania Arnaldo [facility] Start: 04-27-2023 End: 04-28-2023 ambulatory ESPINOZA MELO [facility] Start: 04-27-2023 End: 04-27-2023 Subsequent hospital visit by physician Espinoza Melo MD Work Phone: [facility] Comment on above: HERLINDA (acute kidney in jury) ([facility]); Lupus nephritis ([facility]) Start: 04-21-2023 End: 04-21-2023 ambulatory Ania Arnaldo Other [facility] Other Start: 04-21-2023 Telephone encounter Ania Arnaldo [facility] Start: 04-16-2023 End: 04-20-2023 Evaluation and management of inpatient ESPINOZA MELO [facility] Start: 12-27-2022 End: 12-27-2022 ambulatory Ania Arnaldo Other [facility] Other Start: 12-27-2022 Office outpatient visit 15 minutes Ania Arnaldo [facility] Start: 12-16-2022 End: 12-17-2022 ambulatory ANIA ARNALDO Facility:[facility] Start: 09-16-2022 End: 09-17-[address] ESPINOZA MELO . Facility:[facility] Start: 08-17-2022 End: 08-18-2022 ambulatory ANIA ARNALDO Facility:[facility] Start: 05-19-2022 End: 05-19-2022 ambulatory Ania Arnaldo Other [facility] Other Start: 05-19-2022 Office outpatient visit 15 minutes Ania Arnaldo [facility] Start: 05-10-2022 End: 05-11-2022 ambulatory ANIA ARNALDO Facility:[facility] Start: 01-28-2022 End: 01-28-2022 ambulatory Ania Arnaldo Other [facility] Other Start: 01-28-2022 Office outpatient visit 15 minutes Ania Arnaldo [facility] Start: 01-18-2022 End: 01-19-[address] ESPINOZA MELO . Facility:[facility] Start: 09-29-2021 End: 09-29-2021 ambulatory Ania Arnaldo Other [facility] Other Start: 09-29-2021 Office outpatient visit 25 minutes Ania Arnaldo [facility] Start: 06-30-2021 End: 06-30-2021 ambulatory Ania Arnaldo Other [facility] Other Start: 06-30-2021 Office outpatient visit 15 minutes Ania Arnaldo [facility] Start: 10-19-2018 End: 10-24-2018 Patient encounter procedure MAYI ADAMS [facility] Procedures Date Procedure Procedure Detail Performing Clinician [...] Detail Author Start: 04-16-2028 Lipid panel Lipids [facility] [employer] Start: 08-06-2024 GFR test (Diabetes, CKD 3-4, OR last GFR 15-59) GFR test (Diabetes, CKD 3-4, OR last GFR 15-59) [facility] Start: 05-10-2024 GFR test (Diabetes, CKD 3-4, OR last GFR 15-59) GFR test (Diabetes, CKD 3-4, OR last GFR 15-59) [facility] [employer] Start: 04-20-2024 GFR test (Diabetes, CKD 3-4, OR last GFR 15-59) GFR test (Diabetes, CKD 3-4, OR last GFR 15-59) [facility] Start: 04-16-2024 Hemoglobin A1c measurement A1C test (Diabetic or Prediabetic) [facility] [employer] Start: 10-04-2023 End: 10-04-2023 Patient encounter procedure 10/04/2023 4:00 PM EST Office Visit [facility] [address] [place] [address] Harriet Goodman MD [address] [place] [phone] follow up [facility] Comment on above: follow up Start: 08-11-2023 End: 08-11-2023 Patient encounter procedure 08/11/2023 10:00 AM EST Appointment [facility] [address] [place] [phone] Harriet Goodman MD [address] [place] [address] Krystian Mathis SLP [facility] Start: 08-10-2023 End: 08-10-2023 Patient encounter procedure 08/10/2023 2:00 PM EST Appointment [facility] [address] [place] [phone] Harriet Goodman MD [address] [place] [address] Krystian Mathis SLP [facility] Start: 07-28-2023 End: 07-28-2023 Patient encounter procedure 07/28/2023 11:00 AM EST Appointment [facility] [address] [place] [phone] Harriet Goodman MD [address] [place] [address] Krystian Mathis SLP [facility] Start: 05-06-2023 End: 05-06-2023 Patient encounter procedure 05/06/2023 1:20 PM EDT Office Visit [facility] Neurology Specialist [address] [place] [address] Bart Stock MD [address] [place], [place] [id number] Liang saw patient bleed [facility] Comment on above: Liang saw patient bl eed Start: 04-16-2023 Annual Wellness Visi t (AWV) Annual Wellness Visit (AWV) [facility] Start: 03-15-2023 Influenza vaccination Flu vaccine (# 1) [facility] Start: 10-25-2020 Screening for malignant neoplasm of breast Breast cancer screen [facility] Start: 03-10-2020 Pneumococcal 65+ yea rs Vaccine (2 - PCV) Pneumococcal 65+ years Vaccine (2 - PCV) [facility] Start: 2010 Respiratory Syncytia l Virus (RSV) age 60 yrs+ (1 - 1-dose 60+ series) Respiratory Syncytial Virus (RSV) age 60 yrs+ (1 - 1-dose 60+ series) [facility] Start: 2010 Respiratory Syncytia l Virus (RSV) or age 60 yrs+ (1 - 1-dose 60+ series) Respiratory Syncytial Virus (RSV) or age 60 yrs+ (1 - 1-dose 60+ series) [facility] Start: 2005 Screening for osteoporosis DEXA (modify frequency per FRAX score) [facility] Start: 2000 Screening for malignant neoplasm of breast Breast cancer screen [facility] Start: 2000 Shingles vaccine (1 of 2) Shingles vaccine (1 of 2) [facility] Start: 1995 Screening for malignant neoplasm of colon [facility] Start: 1969 DTaP/Tdap/Td vaccine (1 - Tdap) DTaP/Tdap/Td vaccine (1 - Tdap) [facility] Start: 1968 Hepatitis C screening Hepatitis C sc reen [facility] Start: 1962 Depression Screen Depression Screen [facility] Start: 1950 COVID-19 Vaccine (#1) COVID-19 Vacci ne (#1) [facility] EKG 12 Lead EKG 12 Lead ECG STAT 08/03/2023 4:00 PM EST [facility] EKG 12 Lead EKG 12 Lead ECG Routine 08/03/2023 4:14 PM EST [facility] [employer] Work Phone: Oxygen therapy [Minimum Data Set] Initiate Oxygen Therapy Protocol Respiratory Care Routine As Needed until discontinued starting 08/03/2023 [employer] Comment on above: As Needed until disc ontinued starting 08/03/2023 End: 08-04-2023 SPECIMEN REJECTION [facility] [employer] Comment on above: Once for 1 Occurrenc es starting 08/04/2023 until 08/04/2023 End: 08-05-2023 Vascular duplex carotid bilateral [facility] [employer] Work Phone: Comment on above: One Time for 1 Occur rences starting 08/05/2023 until 08/05/2023 Payers Date Payer Category Payer Medicare [id number] 1959 Medicare [id number] 2. [id number] 1950 Unknown [id number] 2.16.84 0.1.961319.3.579.2.593 1950 Unknown [id number] 2.16.84 0.1.147889.3.579.2.593 1950 Unknown [id number] 2.16.84 0.1.537034.3.579.2.593 1950 Unknown [id number] 2.16.84 0.1.711271.3.579.2.593 1950 Unknown [id number] 2.16.84 0.1.069996.3.579.2.593 1950 Unknown [id number] 2.16.84 0.1.624653.3.579.2.593 1950 Unknown [id number] 2.16.8 40.1.292536.3.579.2.176 1950 Unknown [id number] 2.16.8 40.1.573089.3.579.2.176 1950 Unknown [id number] 2.16. 840.1.223947.3.579.2.175 1950 Unknown [id number] 2.16. 840.1.995276.3.579.2.175 1950 Unknown [id number] 2.16. 840.1.853617.3.579.2.175 1950 Unknown [id number] 2.16. 840.1.762130.3.579.2.175 1950 Unknown [id number] 2.16. 840.1.874352.3.579.2.175 1950 Unknown [id number] 2.16. 840.1.945971.3.579.2.175 1950 Unknown [id number] 2.16. 840.1.233959.3.579.2.175 1950 Unknown [id number] 2.16. 840.1.546182.3.579.2.175 1950 Unknown [id number] 2.16. 840.1.928771.3.579.2.175 1950 Unknown [id number] 2.16. 840.1.716907.3.579.2.175 1950 Unknown [id number] 2.16. 840.1.769034.3.579.2.175 1950 Unknown [id number] 2.16. 840.1.368761.3.579.2.175 1950 Unknown [id number] 2.16. 840.1.716653.3.579.2.175 1950 Unknown [id number] 2.16. 840.1.002109.3.579.2.175 1950 Unknown [id number] 2.16. 840.1.823766.3.579.2.175 1950 Unknown [id number] 2.16.84 0.1.718612.3.579.2.1286 1950 Unknown [id number] 2.16.84 0.1.417737.3.579.2.1286 1950 Unknown [id number] 2.16.84 0.1.831913.3.579.2.1286 1950 Unknown [id number] 2.16.84 0.1.285566.3.579.2.1286 1950 Unknown [id number] 2.16.84 0.1.901136.3.579.2.1286 1950 Unknown [id number] 2.16.84 0.1.366153.3.579.2.1286 1950 Unknown [id number] 2.16.84 0.1.939514.3.579.2.1286 Medicare [id number] 2.16.8 40.1.664478.19 Social History Date Type Detail Facility Unknown if ever smoked [facility] Other Start: 07-20-2023 End: 08-03-2023 Sex Assigned At [facility] Other Start: 04-18-2023 Tobacco smoking status [facility] Tobacco smoking consumption unknown [employer] Start: 1950 Sex Assigned At Not on file [employer] Start: 05-10-2023 Tobacco smoking status [facility] Ex-smoker [employer] End: 04-14-2023 History of tobacco use Current smoker [employer] End: 04-14-2023 History of tobacco use Cigarette Smoker [employer] Start: 05-10-2023 Tobacco use and exposure Smokeless tobacco non-user [employer] Start: 07-20-2023 End: 08-03-2023 Alcohol intake Lifetime non-drinker (finding) [employer] Start: 07-20-2023 End: 08-03-2023 History of Social function [employer] NEGATED: Highlighted rowStart: BONILLAF History of tobacco use Passive smoker [employer] Clinical Notes 11-03-2020 to 08-07-2023 Discharge Instr [...] Secondary Emergency Contact: FELIPE WHEATLEY Relation: Child Bowling Ball Patcher needed? No Past Surgical History: Past Surgical [...] Assisted Dressing Assisted Toileting Assisted Feeding Independent Ceramic Sprayer Independent Med Delivery whole Wound Care Documentation [...] Readmission: 14 Discharging to Facility/ Agency Name: [facility] Address: Phone: Fax: Dialysis Facility (if applicable) Name: Address: Dialysis Schedule: Phone: Fax: Claims Collector/Director Of Extension Work signature: PHYSICIAN SECTION Prognosis: Good Condition at [...] PHYSICIAN SIGNATURE: documented in this encounter [facility] 08-07-2023 History of Presen t illness [...] Ambulation Assistance: Independent Transfer Assistance: Independent Active Electronic Test Technician: No Patient's Electronic Test Technician Info: spouse 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 DVT proph: Lovenox [facility] Neurology IN-PATIENT SERVICE [facility] Progress Note Date: 08/06/2023 Patient name: Bhumika Wheatley Date of admission: 08/03/2023 3:07 PM Account: [id number] Date of : 1950 PCP: Espinoza Melo [...] Patient not taking: Reported on 07/20/2023 06/08/23 Provider, MD Abdiel amantadine (SYMMETREL) 100 MG capsule Take 1 [...] by contextual derivation. 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[employer] Leisure [employer] Hobbies: [employer] Additional Comments: Pt reports spouse is elderly [...] 3-5 steps with a railing?: A Little AM-[facility] Inpatient Mobility Raw Score : 20 AM-[facility] Inpatient T-Scale Score : 47.67 Mobility [...] Maikel Venegas PT Occupational Therapy Facility/Department: [address] [facility] Occupational Therapy Initial Assessment Name: [...] Ambulation Assistance: Independent Transfer Assistance: Independent Active Electronic Test Technician: No Patient's Electronic Test Technician Info: spouse 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: 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 [employer] & Hobbies: [employer] Additional Comments: Pt reports spouse is elderly [...] How much help for eating meals?: None [facility] Inpatient Daily Activity Raw Score: 19 AM-[facility] Inpatient ADL T-Scale Score : 40.22 [...] 23 Minutes (co-eval w/PT) Ellen Garsia OTR/L [facility] Neurology IN-PATIENT SERVICE [facility] Progress Note Date: 08/05/2023 Patient name: Bhumika Wheatley Date of admission: 08/03/2023 3:07 PM Account: [id number] Date of : 1950 PCP: Espinoza Melo [...] mg every other day Izabella Parker, PharmD, [facility] 08/05/2023 9:39 AM Pharmacy Note Renal Dose [...] even further dose decrease) Izabella Parker PharmD, [facility] 08/04/2023 1:16 PM PHARMACY NOTE: The electrolyte [...] any concerns. Thank you. Izabella Parker PharmD, [facility] 08/04/2023 12:30 PM Routine EEG completed Pharmacy Note Renal Dose Adjustment Bhumika Wheatley is a 73 y.o. female. Pharmacist assessment of renally cleared medications. Recent Labs 08/03/23 1522 BUN 26* Recent Labs 08/03/23 1522 CREATININE 1.8* Estimated Creatinine Clearance: 23 mL/min (A) (based on SCr of 1.8 mg/dL (H)). Estimated CrCl using [place] Body Weight: 23 mL/min (based on IBW [...] 08/03/2023 11:24 PM documented in this encounter [facility] 05-11-2023 Evaluation note Encounter Date Diagnosis Assessment Notes Apr, CKD (chronic kidney disease) (ICD-10 - N18.9) [facility] Other 09-21-2023 Evaluation note* Encounter Date Diagnosis [...] will check PTH vitamin D and phosphorus. [facility] Other 05-15-2023 Evaluation note* Encounter Date Diagnosis [...] the Vit D 4000 units PO daily [facility] Other 10-05-2022 Evaluation note* Encounter Date Diagnosis [...] D May, Other No need for antibiotics [facility] Other 06-16-2022 Evaluation note* Encounter Date Diagnosis [...] (ICD-10 - R82.71) No need for antibiotics [facility] Other 02-15-2022 Evaluation note* Encounter Date Diagnosis [...] (ICD-10 - R82.71) No need for antibiotics [facility] Other 11-16-2021 Evaluation note* Encounter Date Diagnosis [...] (ICD-10 - R82.71) No need for antibiotics [facility] Other [id number] Note [id number]#1.00CD:[address] [place] [address] 11-05-2020 [id number]#1.00CD:[address] [place], [place] 3359703-22-2021 NotePatient: BHUMIKA WHEATLEY Age: 70 years Sex: [...] daily living. No change in H&P upon review.[facility]:Result Comment: Electronically Signed By: Richelle BARROS, Bianca Carlson.liliam\Date and Time Signed: 11/03/20 07:37 EDTEvaluation noteNo Space [facility] [employer] Other Evaluation note* Diagnosis HERLINDA (acute kidney injury) (HCC) Acute kidney failure, unspecified Lupus nephritis (HCC) Systemic lupus erythematosus documented in this encounter [employer]* Diagnosis Syncope and collapse- Primary Syncope and collapse Seizures (HCC) Other convulsions SAH (subarachnoid hemorrhage) (HCC) Subarachnoid hemorrhage [facility] this [facility] N[facility]ative - Reported* Type Description Date [...] Hospitalization History Lupus issues, Renal issu es [facility] Other History general Narrative - Reported* Type [...] es Hospitalization History FALL BRAIN BLEED 3 [facility] Other Summary Purpose Family History No Family [...] Communication Corina Wheatley Spouse Primary Decision Maker Healthcare Agents on File Name Relationship Healthcare Agent Relationship Communication Corina Wheatley Spouse Primary Decision Maker Hospital Course Note Send Summary: Discharge Summ [...] at Discharge: .Home Vital Signs: T PRBPSpO2 [id number]/7099% Date/Time03/13 6: 6: 6: 6: 6:45 Range(36.2C [...] section and content) DATE CREATED AUTHOR 10/25/2018 [facility] DATE CREATED AUTHOR AUTHOR'S ORGANIZ ATION 03/20/2019 [facility] DATE CREATED AUTHOR AUTHOR'S ORGANIZ ATION 03/14/2021 Noel Richard [facility] DATE CREATED AUTHOR AUTHOR'S ORGANIZ ATION 12/23/2022 [facility] DATE CREATED AUTHOR AUTHOR'S ORGANIZ ATION 07/22/2023 [facility] DATE CREATED AUTHOR AUTHOR'S ORGANIZ ATION 08/17/2023 [facility] DATE CREATED AUTHOR AUTHOR'S ORGANIZ ATION 09/04/2023 [facility] REASON FOR VISIT (unrecogniz ed section and content) Reason Comments Fall Altered Mental Status Specialty Diagnoses / Procedures Referred By Shefali sierra Referred To Contact Diagnoses Syncope and collapse Bart Stock MD [address] [address] [facility] [address] [place] [address] Referral ID Status Reason Start Date Expiration Date Visits Re quested Visits Authorized [id number] 1 1 Care Teams (unrecognized sec tion and content) Fruit 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 Relationship Specialty Start Date End Date Espinoza Melo MD [address] [place] [address] (Fax) PCP - General 04/20/23 Ania Arnaldo [address] [place] [address] [place] [address] Physician Nephrology 04/18/23 Fruit 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 Relationship Specialty Start Date End Date Espinoza Melo MD [address] [place] [address] (Fax) PCP - General 04/20/23 Ania Arnaldo [address] [place] [address] [place] [address] Physician Nephrology 04/18/23 Fruit Grower Relationship Specialty Start Date End Date Espinoza Melo MD [address] [place] [address] (Fax) PCP - General 04/20/[address] [place] [address] Physician Nephrology 04/18/23 Fruit Grower Relationship Specialty Start Date End Date Espinoza Melo MD [address] [place] [address] PCP - General 04/20/[address] [place] [address] Physician Nephrology 04/18/23 Ordered Prescriptions (unrec ognized [...] RN)180 (Given - Provider: Mitzy Campos RN) 0826 (Given - Provider: Mitzy Campos RN - Comment: ok to give per dr quijano)1700 (Due) citalopram (CELEXA) tablet 10 mg 10 mg, Oral, DAILY, First dose on Tue08/04/23 at 0900, Until Discontinued 0944 (Given - Provider: Xiomy Garcia RN) 09 (Given - Provider: Mitzy Campos RN) 0820 (Given - Provider: Mitzy Campos RN) divalproex (DEPAKOTE) DR tablet 500 mg 500 mg, Oral, 2 TIMES DAILY, First dose (after last modification) on Tue08/04/23 at 2100, Until Discontinued, Do not crush or break. 0944 (Given - Provider: Xiomy Garcia RN)2041 (Given - Provider: Lucía Leigh RN) 09 (Given - Provider: Mitzy Campos RN)214 (Given - Provider: Bea Goddard RN) 08 (Given - Provider: Mitzy Campso RN)2100 (Due) donepezil (ARICEPT) tablet 10 mg 10 mg, Oral, NIGHTLY, First dose on Tue08/04/23 at 2100, Until Discontinued 2041 (Given - Provider: Lucía Leigh RN) 2145 (Given - Provider: Bea Goddard RN) 2100 (Due) enoxaparin Sodium (LOVENOX) injection 30 mg 30 mg, SubCUTAneous, DAILY, First dose on Tue08/04/23 at 0900, Until Discontinued, Indication of Use: [...] Xiomy Garcia RN)2047 (Given - Provider: Lucía Leigh, ROWDY) 0906 (Given - Provider: Mitzy Campos, ROWDY)2147 (Given - Provider: Bea Goddard RN) 0829 (Given - Provider: Mitzy Campos, ROWDY)2100 (Due) PRN Medication Order 08/05/2023 08/06/2023 08/07/2023 [...] BE BASED ON THE PRIMARY CLINICAL RECORDS. [employer] [facility]. provides no warranty or guarantee of the accuracy or completeness of information in this document.
[2023-09-07 07:59] LABS: Ammonia 41 umol/L (11-32)
[2023-09-07 08:04] LABS: Basophils Percent Auto 0.4 % (0.2-2.0); Eosinophils Absolute Auto 0.2 10^3/uL (0.0-0.7); Eosinophils Percent Auto 2.1 % (0.9-7.0); Hematocrit 31.1 % (36.0-48.0); Hemoglobin 9.5 g/dL (12.0-16.0); Immature Granulocytes Abs Auto 0.08 10^3/uL (0.00-0.03); Immature Granulocytes Pct Auto 0.8 % (0.0-0.5); Lymphocytes Absolute Auto 1.3 10^3/uL (1.2-3.8); Lymphocytes Percent Auto 13.1 % (20.5-60.0); Mean Corpuscular HGB Conc 30.5 g/dL (29.9-35.2); Mean Corpuscular Hemoglobin 32.6 pg (26.7-34.0); Mean Corpuscular Volume 106.9 fL (81.0-99.0); Mean Platelet Volume 10.1 fL (9.5-13.5); Monocytes Absolute Auto 1.3 10^3/uL (0.3-0.8); Monocytes Percent Auto 12.4 % (1.7-12.0); Neutrophils Absolute Auto 7.2 10^3/uL (1.4-6.5); Neutrophils Percent Auto 71.2 % (43.0-75.0); Platelet Count 285 10^3/uL (150-450); Red Blood Count 2.91 10^6/uL (4.20-5.40); Red Cell Distribution Width 14.6 % (11.0-15.0); White Blood Count 10.1 10^3/uL (4.0-11.0)
[2023-09-07 08:23] LABS: Bilirubin Urine NEGATIVE (NEGATIVE); Blood Urine NEGATIVE (NEGATIVE); Clarity Urine CLEAR (CLEAR); Color Urine LT. YELLOW (YELLOW); Glucose Urine UA NEGATIVE (NEGATIVE); Ketones Urine NEGATIVE (NEGATIVE); Leukocyte Esterase Urine SMALL (NEGATIVE); Nitrite Urine NEGATIVE (NEGATIVE); Protein Urine TRACE mg/dL (NEG/TRACE); Urobilinogen Urine 0.2 EU/dL (0.2-1.0)
[2023-09-07 08:34] LABS: Urine Microscopic Indicated YES
[2023-09-07 08:36] LABS: Bacteria Urine TRACE #/HPF (NONE SEEN); Mucus Urine SMALL (NONE SEEN); RBC Urine NONE SEEN #/HPF (0-2); Squamous Epithelial Cell Urine MODERATE #/LPF (NONE/RARE)
[2023-09-07 08:37] LABS: Urine Culture Indicated YES
[2023-09-07 09:06] LABS: Alanine Aminotransferase 16 U/L (14-59); Albumin Globulin Ratio 0.4; Albumin Level 1.9 g/dL (3.4-5.0); Alkaline Phosphatase 45 U/L (46-116); Anion Gap 10.9; Aspartate Amino Transferase 13 U/L (15-37); BUN Creatinine Ratio 15.9; Bilirubin Total 0.5 mg/dL (0.2-1.0); Calcium 8.5 mg/dL (8.5-10.1); Carbon Dioxide 31.2 mmol/L (21.0-32.0); Chloride 108 mmol/L (98-107); Estimated GFR (African America 41 (>=60); Estimated GFR (Non-African Ame 34 (>=60); Globulin 4.6 g/dL; Glucose 79 mg/dL (74-106); Potassium 4.1 mmol/L (3.5-5.1); Sodium 146 mmol/L (136-145); Total Protein 6.5 g/dL (6.4-8.2)
== END 2023-09-07 00:48 | disposition home or self-care (01) ==
LOC: LAB 00:47
PROVIDERS: PCP Family Medicine; Visit Provider Nurse Practitioner Family
DX: E43 Unspecified severe protein-calorie malnutrition (principal); N18.4 Chronic kidney disease, stage 4 (severe); R82.89 Other abnormal findings on cytological and histological examination of urine
CPT/HCPCS: 36415; 80053; 81001; 82140; 85025; 87086

== ENCOUNTER 2023-09-23 02:15 | Outpatient (REF) | payer MEDICARE, SELFPAY ==
--- OUTSIDE RECORDS SUMMARY | 2023-09-23 02:22 | XMS_ITS | CCD ---
Author Name Unknown Address [address] [place] [address] Organization [facility] Care Team Providers Care Hotel Front Desk Clerk Name Role Phone MAYI ADAMS Attending Unavailable [...] Care Unavailable ARNALDO, ANIA Consulting Unavailable ARNALDO, NAIA Admitting Unavailable HEMEYER ., DR FIERRO Primary Care Unavailable ARNALDO, ANIA Attending Unavailable Hemeyer Espinoza BARROS Primary Care Provider AUNDREA MIXON Referring Unavailable ESPINOZA MELO Primary Care Unavailable ESPINOZA MELO Primary Care Unavailable DARON CHRISTIANSON Referring Unavailable ESPINZOA MELO Primary Care Unavailable HARRIET GOODMAN Referring Unavailable HARRIET GOODMAN Attending Unavailable ESPINOZA MELO Primary Care Unavailable HARRIET GOODMAN Attending Unavailable GOODMAN, HARRIET L Referring Unavailable HEMEYER, EDWARD J Referring [facility] Primary Care Unavailable HEMEYER, EDWARD J Primary Care Unavailable DIMITRISFARZANA TONG Referring Unavailable GOODMANKORINY L Attending Unavailable HEMEYER, EDWARD J Primary Care Unavailable GOODMAN, HARRIET L Referring Unavailable GOODMAN, HARRIET L Attending Unavailable HEMEYER, EDWARD J Primary Care Unavailable GOODMAN, HARRIET L Referring Unavailable GOODMAN, HARRIET L Referring Unavailable GOODMAN, HARRIET L Attending Unavailable [facility] Primary Care Unavailable HEMEYER, EDWARD J Primary Care Unavailable BOBBY ROBLERO Referring Unavailable TREMAINE MAE Attending Unavailable TREMAINE MAE Admitting Unavailable CHANNING THOMPSON Consulting Unavailable ROB PORTILLO Consulting Unavailable ANALILIA DIANA Consulting Unavailable LOPEZ WALKER Consulting Unavailable HARRIET GOODMAN Consulting Unavailable [facility] Primary Care Unavailable [...] Referring Unavailable GOODMAN, HARRIET L Attending Unavailable [facility] Primary Care Unavailable GOODAMN HARRIET L Attending Unavailable HEMEYER, EDWARD J Primary Care Unavailable GOODMAN, HARRIET L Referring Unavailable [facility] Primary Care Unavailable GOODMAN, HARRIET L Attending Unavailable GOODMAN, HARRIET L Referring Unavailable HEMEYER, EDWARD J Primary Care Unavailable GOODMAN, HARRIET L Attending Unavailable GOODMAN, HARRIET L Referring Unavailable YESSY PACKER Referring Unavailable TRENA MCCLELLAN Attending Unavailable [facility] Primary Care Unavailable JANIE ARCHULETA. [...] Primary Care Unavailable MANUEL VALENZUELA Referring Unavailable ESPIONZA MELO Primary Care Unavailable Allergies Allergy Classification Reported Allergen(s) Allergy Type Date of Onset Reaction(s) Facility (9 sources) Contrast media Propensity to adverse reactions Unknown pickrset Other (9 sources) Penicillin Drug Allergy Unknown pickrset Other (1 source) HYDROcodone Drug Allergy 0 [facility] (1 source) predniSONE Drug Allergy 0 [facility] (1 source) traMADol Drug Allergy 0 [facility] (1 source) Tylenol-Codeine #3 Drug allergy (disorder) 0 [facility] (4 sources) diazePAM; Translations: [DIAZEPAM] Drug Allergy 3 [employer] (1 source) Gadolinium Derivatives Propensity to adverse reactions to drug 3 Rash [facility] [employer] (1 source) Iodinated Contrast Media Propensity to adverse reactions to drug 3 Rash [facility] Medications Current Medications Medication Drug Class(es) Dates [...] 10 mg, Oral, DAILY, First dose on [facility] 08/04/23 at 0900, Until Discontinued take 2 tablets by [facility] every twenty-four hours amLODIPine Besylate 5 MG 2 tablet Orally Daily for 90 day(s) Active take 1 tablet by [facility] every twenty-four hours amLODIPine Besylate 5 MG 1 tablet Orally Daily for 90 day(s) Active carvedilol 6.25 mg oral tablet (8 sources) alpha-Adrenergic Adilson, beta-Adrenergic Adilson Start: 04-20-2023 take 6.25 mg by mouth twice daily at mealtime 6.25 mg, Oral, 2 TIMES DAILY WITH MEALS, First dose on [facility] 08/04/23 at 0800, Until Discontinued Administer with food to minimize the risk of orthostatic hypotension citalopram 10 mg oral tablet (8 sources) Serotonin Reuptake Inhibitor Start: 04-21-2023 take 10 mg by mouth once daily 10 mg, Oral, DAILY, First dose on [facility] 08/04/23 at 0900, Until Discontinued donepezil hydrochloride 10 mg oral tablet (9 sources) Start: 05-18-2023 take 10 mg by mouth once daily 10 mg, Oral, NIGHTLY, First dose on [facility] 08/04/23 at 2100, Until Discontinued Start: 05-18-2023 take 1 tablet by [facility] once daily donepezil (ARICEPT) 10 MG tablet [...] 30 mg, SubCUTAneous, DAILY, First dose on [facility] 08/04/23 at 0900, Until Discontinued Indication [...] Once a day Active polyethylene glycol 3350 41858 mg powder for oral solution (1 source) [...] Eosinophils (Bld) [#/Vol] 0.2 10*3/uL Normal 0.0-0.4 [facility] Comment on above: Performed By: #### C ANSELMO BOYD, , 77291-8 #### [facility] ([id number]) [address] [place] [address] Eosinophils/100 WBC (Bld) 1.0 % Normal [facility] Comment on above: Performed By: #### C ANSELMO BOYD, , 80751-3 #### [facility] ([id number]) [address] [place] [place] [address] Erythrocyte distribution width (RBC) [Ratio] 14.4 % Normal 11.5-15.0 [facility] Comment on above: Performed By: #### C ANSELMO BOYD, , 99120-6 #### [facility] ([id number]) [address] [place] [address] Hematocrit (Bld) [Volume fraction] 30.7 % Low 35-47 [facility] Comment on above: Performed By: #### C BCA, CMP, , 61666-7 #### [facility] ([id number]) [address] [place] [address] Hemoglobin (Bld) [Mass/Vol] 10.0 g/dL Low 11.7-15.5 [facility] Comment on above: Performed By: #### C BCA, CMP, , 74328-9 #### [facility] ([id number]) [address] [place] [address] Lymphocytes (Bld) [#/Vol] 0.9 10*3/uL Low 1.0-3.5 [facility] Comment on above: Performed By: #### C BCA, CMP, , 33678-1 #### [facility] ([id number]) [address] [place] [address] Lymphocytes/100 WBC (Bld) 5.8 % Normal [facility] Comment on above: Performed By: #### C BCA, CMP, , 65400-2 #### [facility] ([id number]) [address] [place] [address] MCH (RBC) [Entitic mass] 31.6 pg Normal 27-34 [facility] Comment on above: Performed By: #### C BCA, CMP, , 72746-6 #### [facility] ([id number]) [address] [place] [address] MCHC (RBC) [Mass/Vol] 32.6 g/dL Normal 32-36 [facility] Comment on above: Performed By: #### C BCA, CMP, , 24562-9 #### [facility] ([id number]) [address] [place] [address] MCV (RBC) [Entitic vol] 97 fL Normal 80-100 [facility] Comment on above: Performed By: #### C BCA, CMP, , 09914-5 #### [facility] ([id number]) [address] [place] [address] Monocytes (Bld) [#/Vol] 3.3 10*3/uL High 0-0.9 [facility] Comment on above: Performed By: #### C BCA, CMP, , 42783-3 #### [facility] ([id number]) [address] [place] [address] Monocytes/100 WBC (Bld) 21.2 % Normal [facility] Comment on above: Performed By: #### C BCA, CMP, , 32894-2 #### [facility] ([id number]) [address] [place] [address] MYELOCYTE 2.9 % Normal [facility] Comment on above: Performed By: #### C BCA, CMP, , 95582-7 #### [facility] ([id number]) [address] [place] [place] [address] Neutrophils (Bld) [#/Vol] 10.8 10*3/uL High 1.5-6.6 [facility] Comment on above: Performed By: #### C BCA, CMP, , 43350-2 #### [facility] ([id number]) [address] [place] [address] Platelet mean volume (Bld) [Entitic vol] 7.8 fL Normal 7-12 [facility] Comment on above: Performed By: #### C BCA, CMP, , 60864-4 #### [facility] ([id number]) [address] [place] [address] Platelets (Bld) [#/Vol] 201 10*3/uL Normal 150-450 [facility] Comment on above: Performed By: #### C BCA, CMP, , 30420-0 #### [facility] ([id number]) [address] [place] [place] [address] POLYCHROMASIA 1+ Abnormal NONE [facility] Comment on above: Performed By: #### C BCA, CMP, , 09100-9 #### [facility] ([id number]) [address] [place] [address] RBC COUNT 3.17 X10E12/L Low 3.80-5.20 [facility] Comment on above: Performed By: #### C BCA, CMP, , 11526-9 #### [facility] ([id number]) [address] [place] [place] [address] SEG NEUTROPHIL 69.1 % Normal [facility] Comment on above: Performed By: #### C BCA, CMP, , 27265-2 #### [facility] ([id number]) [address] [place] [place] [address] WBC (Bld) [#/Vol] 15.6 10*3/uL High 4.0-11.0 [facility] Comment on above: Performed By: #### C BCA, CMP, , 98882-4 #### [facility] ([id number]) [address] [place] [address] COMPREHENSIVE METABOLIC PANE Keenan 08-23-2023 Albumin [Mass/Vol] 1.9 g/dL Low 3.2-5.3 [facility] Comment on above: Performed By: #### C BCA, CMP, , 57227-2 #### [facility] ([id number]) [address] [place] [place] [address] ALP [Catalytic activity/Vol] 41 U/L Normal 39-130 [facility] Comment on above: Performed By: #### C BCA, CMP, , 39570-6 #### [facility] ([id number]) [address] [place] [place] [address] ALT [Catalytic activity/Vol] 30 U/L Normal 0-31 [facility] Comment on above: Performed By: #### C BCA, CMP, 21596-8, 46131-0 #### [facility] ([id number]) [address] [place] [place] [address] Anion gap [Moles/Vol] 6 mmol/L Normal 5-15 [facility] Comment on above: Performed By: #### C BCA, CMP, , 31295-3 #### [facility] ([id number]) [address] [place] [address] AST [Catalytic activity/Vol] 44 U/L High 0-41 [facility] Comment on above: Performed By: #### C BCA, CMP, , 01366-5 #### [facility] ([id number]) [address] [place] [address] Bilirubin [Mass/Vol] 0.6 mg/dL Normal 0.3-1.2 [facility] Comment on above: Performed By: #### C BCA, CMP, , 66598-0 #### [facility] ([id number]) [address] [facility] [place] [address] Calcium [Mass/Vol] 8.0 mg/dL Low 8.5-10.5 [facility] Comment on above: Performed By: #### C BCA, CMP, , 76460-2 #### [facility] ([id number]) [address] [place] [address] Chloride [Moles/Vol] 101 mmol/L Normal 98-109 [facility] Comment on above: Performed By: #### C BCA, CMP, , 05697-2 #### [facility] ([id number]) [address] [place] [address] CO2 [Moles/Vol] 26 mmol/L Normal 22-32 [facility] Comment on above: Performed By: #### C BCA, CMP, , 39821-0 #### [facility] ([id number]) [address] [place] [address] Creatinine [Mass/Vol] 1.28 mg/dL High 0.40-1.00 [facility] Comment on above: Result Comment: METH OD TRACEABLE TO IDMS STANDARD Performed By: #### C BCA, CMP, , 25799-1 #### [facility] ([id number]) [address] [place] [address] GFR/1.73 sq M.predicted among non-blacks MDRD (S/P/Bld) [Vol rate/Area] 44 mL/min/{1.73_m2} Low >59 [facility] Comment on above: Result Comment: Reported eGFR is based on the CKD-EPI 2020 equation that does not use a race coefficient. Performed By: #### C BCA, CMP, , 75214-8 #### [facility] ([id number]) [address] [place] [address] Glucose [Mass/Vol] 91 mg/dL Normal 65-99 [facility] Comment on above: Performed By: #### C BCA, CMP, , 63891-5 #### [facility] ([id number]) [address] [place] [address] Potassium [Moles/Vol] 4.2 mmol/L Normal 3.5-5.0 [facility] Comment on above: Performed By: #### C BCA, CMP, , 00214-3 #### [facility] ([id number]) [address] [place] [address] Protein [Mass/Vol] 5.7 g/dL Low 6.0-8.0 [facility] Comment on above: Performed By: #### C BCA, CMP, , 42970-0 #### [facility] ([id number]) [address] [place] [address] Sodium [Moles/Vol] 133 mmol/L Low 134-146 [facility] Comment on above: Performed By: #### C BCA, CMP, , 59096-6 #### [facility] ([id number]) [address] [place] [address] Urea nitrogen [Mass/Vol] 21 mg/dL Normal 5-27 [facility] Comment on above: Performed By: #### C BCA, CMP, , 61065-4 #### [facility] ([id number]) [address] [facility] [place] [address] MAGNESIUMon 08-23-2023 Magnesium [Mass/Vol] 1.8 mg/dL Normal 1.8-2.6 [facility] Comment on above: Performed By: #### C BCA, CMP, 08284-6, 18351-4 #### [facility] ([id number]) [address] [facility] [place] [address] CBC AND AUTO DIFFon 08-22-19 24 Band form neutrophils/100 WBC (Bld) 4.8 % Normal [facility] Comment on above: Performed By: #### C MP, THYR, 2284-03, 2132-04, 85086-3 #### [facility] ([id number]) [address], [address] [place] [address] Eosinophils (Bld) [#/Vol] 0.2 10*3/uL Normal 0.0-0.4 [facility] Comment on above: Performed By: #### C MP, THYR, 2284-03, 2132-04, 01221-8 #### [facility] ([id number]) [address], [address] [place] [address] Eosinophils/100 WBC (Bld) 1.0 % Normal [facility] Comment on above: Performed By: #### C MP, THYR, 2284-03, 2132-04, 00618-8 #### [facility] ([id number]) [address], [address] [place] [address] Erythrocyte distribution width (RBC) [Ratio] 14.1 % Normal 11.5-15.0 [facility] Comment on above: Performed By: #### C MP, THYR, 2284-03, 2132-04, 71282-3 #### [facility] ([id number]) [address], [address] [place] [address] Hematocrit (Bld) [Volume fraction] 31.0 % Low 35-47 [facility] Comment on above: Performed By: #### C MP, THYR, 2284-03, 2132-04, 11288-3 #### [facility] ([id number]) [address], [address] [place] [address] Hemoglobin (Bld) [Mass/Vol] 10.4 g/dL Low 11.7-15.5 [facility] Comment on above: Performed By: #### C MP, THYR, 2284-03, 2132-04, 03388-8 #### [facility] ([id number]) [address], [address] [place] [address] LYMPHOCYTE, ATYPICAL 1.9 % Normal [facility] Comment on above: Performed By: #### C MP, THYR, 2284-03, 2132-04, 65338-9 #### [facility] ([id number]) [address], [address] [place] [address] Lymphocytes (Bld) [#/Vol] 0.9 10*3/uL Low 1.0-3.5 [facility] Comment on above: Performed By: #### C MP, THYR, 2284-03, 2132-04, 56468-6 #### [facility] ([id number]) [address], [address] [place] [address] Lymphocytes/100 WBC (Bld) 3.8 % Normal [facility] Comment on above: Performed By: #### C MP, THYR, 2284-03, 2132-04, 75496-9 #### [facility] ([id number]) [address], [address] [place] [address] MCH (RBC) [Entitic mass] 32.3 pg Normal 27-34 [facility] Comment on above: Performed By: #### C MP, THYR, 2284-03, 2132-04, 45689-1 #### [facility] ([id number]) [address], [address] [place] [address] MCHC (RBC) [Mass/Vol] 33.6 g/dL Normal 32-36 [facility] Comment on above: Performed By: #### C MP, THYR, 2284-03, 2132-04, 56994-5 #### [facility] ([id number]) [address], [facility] [address] [place] [address] MCV (RBC) [Entitic vol] 96 fL Normal 80-100 [facility] Comment on above: Performed By: #### C MP, THYR, 2284-03, 2132-04, 43078-5 #### [facility] ([id number]) [address] [place] [address] Monocytes (Bld) [#/Vol] 5.1 10*3/uL High 0-0.9 [facility] Comment on above: Performed By: #### C MP, THYR, 2284-03, 2132-04, 12173-8 #### [facility] ([id number]) [address] [place] [address] Monocytes/100 WBC (Bld) 32.4 % Normal [facility] Comment on above: Performed By: #### C MP, THYR, 2284-03, 2132-04, 86284-8 #### [facility] ([id number]) [address], [facility] [address] [place] [address] MYELOCYTE 1.0 % Normal [facility] Comment on above: Performed By: #### C MP, THYR, 2284-03, 2132-04, 63656-7 #### [facility] ([id number]) [address], [facility] [address] [place] [address] Neutrophils (Bld) [#/Vol] 9.3 10*3/uL High 1.5-6.6 [facility] Comment on above: Performed By: #### C MP, THYR, 2284-03, 2132-04, 68935-4 #### [facility] ([id number]) [address], [address] [place] [address] Platelet mean volume (Bld) [Entitic vol] 7.9 fL Normal 7-12 [facility] Comment on above: Performed By: #### C MP, THYR, 2284-03, 2132-04, 46923-7 #### [facility] ([id number]) [address], [address] [place] [address] Platelets (Bld) [#/Vol] 195 10*3/uL Normal 150-450 [facility] Comment on above: Performed By: #### C MP, THYR, 2284-03, 2132-04, 26381-3 #### [facility] ([id number]) [address], [facility] [address] [place] [address] RBC COUNT 3.22 X10E12/L Low 3.80-5.20 [facility] Comment on above: Performed By: #### C MP, THYR, 2284-03, 2132-04, 66368-7 #### [facility] ([id number]) [address], [address] [place] [address] RBC morphology finding Nom (Bld) NORMAL Normal [facility] Comment on above: Performed By: #### C MP, THYR, 2284-03, 2132-04, 00502-5 #### [facility] ([id number]) [address], [address] [place] [address] SEG NEUTROPHIL 55.1 % Normal [facility] Comment on above: Performed By: #### C MP, THYR, 2284-03, 2132-04, 93947-4 #### [facility] ([id number]) [address], [address] [place] [address] TOXIC GRANULATION 2+ Abnormal NONE [facility] Comment on above: Performed By: #### C MP, THYR, 2283-8, 2132-04, 81372-3 #### [facility] ([id number]) [address], [address] [place] [address] WBC (Bld) [#/Vol] 15.6 10*3/uL High 4.0-11.0 [facility] Comment on above: Performed By: #### C MP, THYR, 8, 2132-04, 67644-7 #### [facility] ([id number]) [address], [address] [place] [address] COMPREHENSIVE METABOLIC PANE Keenan 08-22-2023 Albumin [Mass/Vol] 1.9 g/dL Low 3.2-5.3 [facility] Comment on above: Performed By: #### C MP, THYR, 2284-03, 2132-04, 26797-3 #### [facility] ([id number]) [address], [address] [place] [address] ALP [Catalytic activity/Vol] 42 U/L Normal 39-130 [facility] Comment on above: Performed By: #### C MP, THYR, 2284-03, 2132-04, 43763-3 #### [facility] ([id number]) [address], [address] [place] [address] ALT [Catalytic activity/Vol] 18 U/L Normal 0-31 [facility] Comment on above: Performed By: #### C MP, THYR, 2283-8, 2132-04, 37404-8 #### [facility] ([id number]) [address] [place] [address] Anion gap [Moles/Vol] 6 mmol/L Normal 5-15 [facility] Comment on above: Performed By: #### C MP, THYR, 2283-, 9, 78783-0 #### [facility] ([id number]) [address] [place] [address] AST [Catalytic activity/Vol] 29 U/L Normal 0-41 [facility] Comment on above: Performed By: #### C MP, THYR, 2284-03, 2132-04, 55246-7 #### [facility] ([id number]) [address] [place] [address] Bilirubin [Mass/Vol] 0.5 mg/dL Normal 0.3-1.2 [facility] Comment on above: Performed By: #### C BARTOLO, THYR, 2284-03, 2132-04, 51423-4 #### [facility] ([id number]) [address] [place] [address] Calcium [Mass/Vol] 8.2 mg/dL Low 8.5-10.5 [facility] Comment on above: Performed By: #### C MP, THYR, 2284-03, 2132-04, 39382-5 #### [facility] ([id number]) [address] [place] [address] Chloride [Moles/Vol] 101 mmol/L Normal 98-109 [facility] Comment on above: Performed By: #### C MP, THYR, 2284-03, 2132-04, 69189-7 #### [facility] ([id number]) [address] [place] [address] CO2 [Moles/Vol] 27 mmol/L Normal 22-32 [facility] Comment on above: Performed By: #### C MP, THYR, 2284-03, 2132-04, 23927-1 #### [facility] ([id number]) [address] [place] [address] Creatinine [Mass/Vol] 1.25 mg/dL High 0.40-1.00 [facility] Comment on above: Result Comment: METH OD TRACEABLE TO IDMS STANDARD Performed By: #### C MP, THYR, 2284-03, 2132-04, 81527-1 #### [facility] ([id number]) [address], [address] [place] [address] GFR/1.73 sq M.predicted among non-blacks MDRD (S/P/Bld) [Vol rate/Area] 46 mL/min/{1.73_m2} Low >59 [facility] Comment on above: Result Comment: Reported eGFR is based on the CKD-EPI 2020 equation that does not use a race coefficient. Performed By: #### C BARTOLO, THYR, 2284-03, 2132-04, 32401-9 #### [facility] ([id number]) [address], [address] [place] [address] Glucose [Mass/Vol] 106 mg/dL High 65-99 [facility] Comment on above: Performed By: #### C MP, THYR, 2284-03, 2132-04, 30275-8 #### [facility] ([id number]) [address], [address] [place] [address] Potassium [Moles/Vol] 4.1 mmol/L Normal 3.5-5.0 [facility] Comment on above: Performed By: #### C MP, THYR, 2284-03, 2132-04, 48196-4 #### [facility] [facility] ([id number]) [address], [address] [place] [address] Protein [Mass/Vol] 5.9 g/dL Low 6.0-8.0 [facility] Comment on above: Performed By: #### C MP, THYR, 2284-03, 2132-04, 06615-4 #### [facility] ([id number]) [address], [address] [place] [address] Sodium [Moles/Vol] 134 mmol/L Normal 134-146 [facility] Comment on above: Performed By: #### C MP, THYR, 2283-8, 9, 91767-7 #### [facility] ([id number]) [address], [facility] [address] [place] [address] Urea nitrogen [Mass/Vol] 21 mg/dL Normal 5-27 [facility] Comment on above: Performed By: #### C MP, THYR, 8, 2132-04, 75960-0 #### [facility] ([id number]) [address], [facility] [address] [place] [address] MAGNESIUMon 08-22-2023 Magnesium [Mass/Vol] 1.8 mg/dL Normal 1.8-2.6 [facility] Comment on above: Performed By: #### C MP, THYR, 2284-03, 2132-04, 19829-3 #### [facility] ([id number]) [address], [address] [place] [address] CBC AND AUTO DIFFon 08-21-19 24 Band form neutrophils/100 WBC (Bld) 4.7 % Normal [facility] Comment on above: Performed By: #### C MP, THYR, 2284-03, 2132-04, 20312-6 #### [facility] ([id number]) [address], [facility] [address] [place] [address] Erythrocyte distribution width (RBC) [Ratio] 14.1 % Normal 11.5-15.0 [facility] Comment on above: Performed By: #### C MP, THYR, 8, 2132-04, 51134-2 #### [facility] ([id number]) [address] [address] [place] [address] Hematocrit (Bld) [Volume fraction] 30.5 % Low 35-47 [facility] Comment on above: Performed By: #### C MP, THYR, 2284-03, 2132-04, 41543-1 #### [facility] ([id number]) [address], [address] [place] [address] Hemoglobin (Bld) [Mass/Vol] 10.2 g/dL Low 11.7-15.5 [facility] Comment on above: Performed By: #### C MP, THYR, 2284-03, 2132-04, 85470-9 #### [facility] ([id number]) [address], [address] [place] [address] LYMPHOCYTE, ATYPICAL 1.9 % Normal [facility] Comment on above: Performed By: #### C MP, THYR, 2284-03, 2132-04, 16529-9 #### [facility] ([id number]) [address], [address] [place] [address] Lymphocytes (Bld) [#/Vol] 1.2 10*3/uL Normal 1.0-3.5 [facility] Comment on above: Performed By: #### C MP, THYR, 2284-03, 2132-04, 60070-7 #### [facility] ([id number]) [address], [address] [place] [address] Lymphocytes/100 WBC (Bld) 6.6 % Normal [facility] Comment on above: Performed By: #### C MP, THYR, 2284-03, 2132-04, 70043-7 #### [facility] ([id number]) [address], [address] [place] [address] MCH (RBC) [Entitic mass] 32.5 pg Normal 27-34 [facility] Comment on above: Performed By: #### C MP, THYR, 2284-03, 2132-04, 13108-7 #### [facility] ([id number]) [address], [address] [place] [address] MCHC (RBC) [Mass/Vol] 33.6 g/dL Normal 32-36 [facility] Comment on above: Performed By: #### C MP, THYR, 2284-03, 2132-04, 96968-5 #### [facility] ([id number]) [address], [address] [place] [address] MCV (RBC) [Entitic vol] 97 fL Normal 80-100 [facility] Comment on above: Performed By: #### C MP, THYR, 2284-03, 2132-04, 66784-8 #### [facility] ([id number]) [address] [place] [address] Metamyelocytes/100 WBC (Bld) 0.9 % Normal [facility] Comment on above: Performed By: #### C MP, THYR, 2284-03, 2132-04, 51256-4 #### [facility] ([id number]) [address], [facility] [address] [place] [address] Monocytes (Bld) [#/Vol] 3.0 10*3/uL High 0-0.9 [facility] Comment on above: Performed By: #### C MP, THYR, 2284-03, 2132-04, 62126-3 #### [facility] ([id number]) [address] [place] [address] Monocytes/100 WBC (Bld) 21.7 % Normal [facility] Comment on above: Performed By: #### C MP, THYR, 2284-03, 2132-04, 28500-8 #### [facility] ([id number]) [address] [address] [place] [address] MYELOCYTE 0.9 % Normal [facility] Comment on above: Performed By: #### C MP, THYR, 2284-03, 2132-04, 31991-0 #### [facility] ([id number]) [address], [address] [place] [address] Neutrophils (Bld) [#/Vol] 9.5 10*3/uL High 1.5-6.6 [facility] Comment on above: Performed By: #### C MP, THYR, 2284-03, 2132-04, 84974-9 #### [facility] ([id number]) [address], [facility] [address] [place] [address] Platelet mean volume (Bld) [Entitic vol] 7.6 fL Normal 7-12 [facility] Comment on above: Performed By: #### C MP, THYR, 2284-03, 2132-04, 17854-3 #### [facility] ([id number]) [address], [facility] [address] [place] [address] Platelets (Bld) [#/Vol] 168 10*3/uL Normal 150-450 [facility] Comment on above: Performed By: #### C MP, THYR, 2284-03, 2132-04, 86962-2 #### [facility] ([id number]) [address], [facility] [address] [place] [address] RBC COUNT 3.15 X10E12/L Low 3.80-5.20 [facility] Comment on above: Performed By: #### C MP, THYR, 2284-03, 2132-04, 50258-5 #### [facility] ([id number]) [address], [address] [place] [address] RBC morphology finding Nom (Bld) NORMAL Normal [facility] Comment on above: Performed By: #### C MP, THYR, 2284-03, 2132-04, 10919-7 #### [facility] ([id number]) [address], [address] [place] [address] SEG NEUTROPHIL 63.3 % Normal [facility] Comment on above: Performed By: #### C MP, THYR, 2284-03, 2132-04, 81255-1 #### [facility] ([id number]) [address], [address] [place] [address] TOXIC GRANULATION 2+ Abnormal NONE [facility] Comment on above: Performed By: #### C MP, THYR, 2284-03, 2132-04, 41356-1 #### [facility] ([id number]) [address], [address] [place] [address] WBC (Bld) [#/Vol] 14.0 10*3/uL High 4.0-11.0 [facility] Comment on above: Performed By: #### C MP, THYR, 2284-03, 2132-04, 54988-9 #### [facility] ([id number]) [address], [address] [place] [address] COMPREHENSIVE METABOLIC PANE Keenan 08-21-2023 Albumin [Mass/Vol] 1.8 g/dL Low 3.2-5.3 [facility] Comment on above: Performed By: #### C MP, THYR, 2284-03, 2132-04, 77395-7 #### [facility] ([id number]) [address], [address] [place] [address] ALP [Catalytic activity/Vol] 38 U/L Low 39-130 [facility] Comment on above: Performed By: #### C MP, THYR, 2284-03, 2132-04, 53501-2 #### [facility] ([id number]) [address], [address] [place] [address] ALT [Catalytic activity/Vol] 8 U/L Normal 0-31 [facility] Comment on above: Performed By: #### C MP, THYR, 2284-03, 2132-04, 10250-4 #### [facility] ([id number]) [address], [address] [place] [address] Anion gap [Moles/Vol] 5 mmol/L Normal 5-15 [facility] Comment on above: Performed By: #### C MP, THYR, 2284-03, 2132-04, 46074-2 #### [facility] ([id number]) [address], [address] [place] [address] AST [Catalytic activity/Vol] 15 U/L Normal 0-41 [facility] Comment on above: Performed By: #### C MP, THYR, 2284-03, 2132-04, 02240-5 #### [facility] ([id number]) [address], [address] [place] [address] Bilirubin [Mass/Vol] 0.4 mg/dL Normal 0.3-1.2 [facility] Comment on above: Performed By: #### C MP, THYR, 2284-03, 2132-04, 58644-5 #### [facility] ([id number]) [address], [address] [place] [address] Calcium [Mass/Vol] 8.0 mg/dL Low 8.5-10.5 [facility] Comment on above: Performed By: #### C MP, THYR, 2284-03, 2132-04, 79084-6 #### [facility] ([id number]) [address], [address] [place] [address] Chloride [Moles/Vol] 98 mmol/L Normal 98-109 [facility] Comment on above: Performed By: #### C MP, THYR, 2284-03, 2132-04, 55892-7 #### [facility] ([id number]) [address], [address] [place] [address] CO2 [Moles/Vol] 28 mmol/L Normal 22-32 [facility] Comment on above: Performed By: #### C MP, THYR, 2284-03, 2132-04, 59042-7 #### [facility] ([id number]) [address], [address] [place] [address] Creatinine [Mass/Vol] 1.32 mg/dL High 0.40-1.00 [facility] Comment on above: Result Comment: METH OD TRACEABLE TO IDMS STANDARD Performed By: #### C MP, THYR, 2284-03, 2132-04, 94076-0 #### [facility] ([id number]) [address], [address] [place] [address] GFR/1.73 sq M.predicted among non-blacks MDRD (S/P/Bld) [Vol rate/Area] 43 mL/min/{1.73_m2} Low >59 [facility] Comment on above: Result Comment: Reported eGFR is based on the CKD-EPI 2020 equation that does not use a race coefficient. Performed By: #### C MP, THYR, 2284-03, 2132-04, 71602-2 #### [facility] ([id number]) [address], [address] [place] [address] Glucose [Mass/Vol] 100 mg/dL High 65-99 [facility] Comment on above: Performed By: #### C MP, THYR, 2284-03, 2132-04, 98953-7 #### [facility] ([id number]) [address], [address] [place] [address] Potassium [Moles/Vol] 4.1 mmol/L Normal 3.5-5.0 [facility] Comment on above: Performed By: #### C MP, THYR, 2284-03, 2132-04, 14870-5 #### [facility] ([id number]) [address], [address] [place] [address] Protein [Mass/Vol] 5.7 g/dL Low 6.0-8.0 [facility] Comment on above: Performed By: #### C MP, THYR, 2284-03, 2132-04, 38286-3 #### [facility] ([id number]) [address], [address] [place] [address] Sodium [Moles/Vol] 131 mmol/L Low 134-146 [facility] Comment on above: Performed By: #### C MP, THYR, 2283-8, 9, 79619-8 #### [facility] ([id number]) [address], [address] [place] [address] Urea nitrogen [Mass/Vol] 20 mg/dL Normal 5-27 [facility] Comment on above: Performed By: #### C MP, THYR, 2283-, 9, 99782-3 #### [facility] ([id number]) [address], [address] [place] [address] MAGNESIUMon 08-21-2023 Magnesium [Mass/Vol] 2.0 mg/dL Normal 1.8-2.6 [facility] Comment on above: Performed By: #### C MP, THYR, 8, 9, 69262-1 #### [facility] ([id number]) [address], [address] [place] [address] [place] GENERIC ORDERon TEST NAME VALPF VALPROIC ACID FREE SERUM Normal [facility] Comment on above: Performed By: #### C BCA, CMP, 77483-4, 05238-7 #### [facility] ([id number]) [address] [facility] [place] [address] TEST RESULT SEE COMMENTS 024 10:28 PM Normal [facility] Comment on above: Result Comment: NOTE Test Result Flag Unit RefValue Valproic Acid, Free, S 5 mcg/mL 5 - 25 Test Performed by: [place] [address] Livestock Handler: Hira Cantu M.D. Ph.D.; CLIA# [id number] Performed By: #### C BCA, CMP, 60894-8, 70120-5 #### [facility] ([id number]) [address] [place] [address] CBC AND AUTO DIFFon 08-20-19 24 Eosinophils (Bld) [#/Vol] 0.2 10*3/uL Normal 0.0-0.4 [facility] Comment on above: Performed By: #### C MP, THYR, 2284-03, 2132-04, 69652-0 #### [facility] ([id number]) [address], [address] [place] [address] Eosinophils/100 WBC (Bld) 1.9 % Normal [facility] Comment on above: Performed By: #### C MP, THYR, 2284-03, 2132-04, 14063-3 #### [facility] ([id number]) [address] [place] [address] Erythrocyte distribution width (RBC) [Ratio] 14.0 % Normal 11.5-15.0 [facility] Comment on above: Performed By: #### C MP, THYR, 2284-03, 2132-04, 16538-3 #### [facility] ([id number]) [address] [place] [address] Hematocrit (Bld) [Volume fraction] 32.5 % Low 35-47 [facility] Comment on above: Performed By: #### C MP, THYR, 2284-03, 2132-04, 65865-1 #### [facility] ([id number]) [address] [address] [place] [address] Hemoglobin (Bld) [Mass/Vol] 10.6 g/dL Low 11.7-15.5 [facility] Comment on above: Performed By: #### C MP, THYR, 2284-03, 2132-04, 39508-9 #### [facility] ([id number]) [address] [place] [address] LYMPHOCYTE, ATYPICAL 5.6 % Normal [facility] Comment on above: Performed By: #### C MP, THYR, 2284-03, 2132-04, 20840-5 #### [facility] ([id number]) [address] [place] [address] Lymphocytes (Bld) [#/Vol] 0.9 10*3/uL Low 1.0-3.5 [facility] Comment on above: Performed By: #### C MP, THYR, 2284-03, 2132-04, 63014-8 #### [facility] ([id number]) [address] [place] [address] Lymphocytes/100 WBC (Bld) 1.9 % Normal [facility] Comment on above: Performed By: #### C MP, THYR, 2284-03, 2132-04, 37873-4 #### [facility] ([id number]) [address] [place] [address] MCH (RBC) [Entitic mass] 31.9 pg Normal 27-34 [facility] Comment on above: Performed By: #### C MP, THYR, 2284-03, 2132-04, 39388-9 #### [facility] ([id number]) [address] [place] [address] MCHC (RBC) [Mass/Vol] 32.6 g/dL Normal 32-36 [facility] Comment on above: Performed By: #### C MP, THYR, 2284-03, 2132-04, 47204-2 #### [facility] ([id number]) [address] [place] [address] MCV (RBC) [Entitic vol] 98 fL Normal 80-100 [facility] Comment on above: Performed By: #### C MP, THYR, 2284-03, 2132-04, 09708-3 #### [facility] ([id number]) [address] [place] [address] Monocytes (Bld) [#/Vol] 3.5 10*3/uL High 0-0.9 [facility] Comment on above: Performed By: #### C MP, THYR, 2284-03, 2132-04, 08595-6 #### [facility] ([id number]) [address] [place] [address] Monocytes/100 WBC (Bld) 29.0 % Normal [facility] Comment on above: Performed By: #### C MP, THYR, 2284-03, 2132-04, 32883-6 #### [facility] ([id number]) [address] [place] [address] MYELOCYTE 1.9 % Normal [facility] Comment on above: Performed By: #### C MP, THYR, 2284-03, 2132-04, 14549-1 #### [facility] ([id number]) [address] [place] [address] Neutrophils (Bld) [#/Vol] 7.2 10*3/uL High 1.5-6.6 [facility] Comment on above: Performed By: #### C MP, THYR, 2284-03, 2132-04, 98145-5 #### [facility] ([id number]) [address] [place] [address] NUCLEATED RBC 0.9 /100 WBC Normal 0.0-1.0 [facility] Comment on above: Performed By: #### C MP, THYR, 2284-03, 2132-04, 92264-9 #### [facility] ([id number]) [address] [address] [place] [address] Platelet mean volume (Bld) [Entitic vol] 7.8 fL Normal 7-12 [facility] Comment on above: Performed By: #### C MP, THYR, 2284-03, 2132-04, 58049-0 #### [facility] ([id number]) [address], [facility] [address] [place] [address] Platelets (Bld) [#/Vol] 178 10*3/uL Normal 150-450 [facility] Comment on above: Performed By: #### C MP, THYR, 2284-03, 2132-04, 51763-3 #### [facility] ([id number]) [address], [facility] [address] [place] [address] RBC COUNT 3.32 X10E12/L Low 3.80-5.20 [facility] Comment on above: Performed By: #### C MP, THYR, 2284-03, 2132-04, 37408-1 #### [facility] ([id number]) [address] [place] [address] RBC morphology finding Nom (Bld) NORMAL Normal [facility] Comment on above: Performed By: #### C MP, THYR, 2284-03, 2132-04, 67415-9 #### [facility] ([id number]) [address], [facility] [address] [place] [address] SEG NEUTROPHIL 59.7 % Normal [facility] Comment on above: Performed By: #### C MP, THYR, 2284-03, 2132-04, 01469-4 #### [facility] ([id number]) [address] [place] [address] WBC (Bld) [#/Vol] 12.1 10*3/uL High 4.0-11.0 [facility] Comment on above: Performed By: #### C MP, THYR, 2283-8, 2132-04, 78977-4 #### [facility] ([id number]) [address] [place] [address] COMPREHENSIVE METABOLIC PANE Keenan 08-20-2023 Albumin [Mass/Vol] 1.9 g/dL Low 3.2-5.3 [facility] Comment on above: Performed By: #### C MP, THYR, 2283-8, 2132-04, 98592-3 #### [facility] ([id number]) [address] [place] [address] ALP [Catalytic activity/Vol] 43 U/L Normal 39-130 [facility] Comment on above: Performed By: #### C MP, THYR, 2284-03, 2132-04, 03088-1 #### [facility] ([id number]) [address] [place] [address] ALT [Catalytic activity/Vol] 9 U/L Normal 0-31 [facility] Comment on above: Performed By: #### C MP, THYR, 2284-03, 2132-04, 85975-5 #### [facility] ([id number]) [address] [place] [address] Anion gap [Moles/Vol] 7 mmol/L Normal 5-15 [facility] Comment on above: Performed By: #### C MP, THYR, 2283-8, 9, 97038-4 #### [facility] ([id number]) [address] [place] [address] AST [Catalytic activity/Vol] 13 U/L Normal 0-41 [facility] Comment on above: Performed By: #### C MP, THYR, 2283-8, 2132-04, 07112-6 #### [facility] ([id number]) [address] [place] [address] Bilirubin [Mass/Vol] 0.5 mg/dL Normal 0.3-1.2 [facility] Comment on above: Performed By: #### C MP, THYR, 2284-03, 2132-04, 09401-5 #### [facility] ([id number]) [address] [place] [address] Calcium [Mass/Vol] 8.0 mg/dL Low 8.5-10.5 [facility] Comment on above: Performed By: #### C MP, THYR, 2284-03, 2132-04, 37717-7 #### [facility] ([id number]) [address] [place] [address] Chloride [Moles/Vol] 103 mmol/L Normal 98-109 [facility] Comment on above: Performed By: #### C MP, THYR, 2284-03, 2132-04, 66794-0 #### [facility] ([id number]) [address] [place] [address] CO2 [Moles/Vol] 25 mmol/L Normal 22-32 [facility] Comment on above: Performed By: #### C MP, THYR, 2284-03, 2132-04, 90858-1 #### [facility] ([id number]) [address] [place] [address] Creatinine [Mass/Vol] 1.27 mg/dL High 0.40-1.00 [facility] Comment on above: Result Comment: METH OD TRACEABLE TO IDMS STANDARD Performed By: #### C MP, THYR, 2284-03, 2132-04, 59341-0 #### [facility] ([id number]) [address], [address] [place], [place] [address] GFR/1.73 sq M.predicted among non-blacks MDRD (S/P/Bld) [Vol rate/Area] 45 mL/min/{1.73_m2} Low >59 [facility] Comment on above: Result Comment: Reported eGFR is based on the CKD-EPI 2020 equation that does not use a race coefficient. Performed By: #### C BARTOLO, THYR, 2284-03, 2132-04, 52416-9 #### [facility] ([id number]) [address], [address] [place] [address] Glucose [Mass/Vol] 82 mg/dL Normal 65-99 [facility] Comment on above: Performed By: #### C BARTOLO, THYR, 2284-03, 2132-04, 34233-9 #### [facility] ([id number]) [address], [address] [place] [address] Potassium [Moles/Vol] 4.2 mmol/L Normal 3.5-5.0 [facility] Comment on above: Performed By: #### C BARTOLO, THYR, 2284-03, 2132-04, 47227-2 #### [facility] ([id number]) [address], [address] [place] [address] Protein [Mass/Vol] 5.8 g/dL Low 6.0-8.0 [facility] Comment on above: Performed By: #### C MP, THYR, 2284-03, 2132-04, 72405-5 #### [facility] ([id number]) [address], [address] [place] [address] Sodium [Moles/Vol] 135 mmol/L Normal 134-146 [facility] Comment on above: Performed By: #### C MP, THYR, 2284-03, 2132-04, 92566-3 #### [facility] ([id number]) [address], [address] [place] [address] Urea nitrogen [Mass/Vol] 20 mg/dL Normal 5-27 [facility] Comment on above: Performed By: #### C MP, THYR, 2284-03, 2132-04, 10211-6 #### [facility] ([id number]) [address], [address] [place] [address] MAGNESIUMon 08-20-2023 Magnesium [Mass/Vol] 2.1 mg/dL Normal 1.8-2.6 [facility] Comment on above: Performed By: #### C MP, THYR, 2284-03, 2132-04, 58162-4 #### [facility] ([id number]) [address] [place] [address] CBC AND AUTO DIFFon 08-19-19 Erythrocyte distribution width (RBC) [Ratio] 14.5 % Normal 11.5-15.0 [facility] Comment on above: Performed By: #### C MP, THYR, 2284-03, 2132-04, 01417-8 #### [facility] ([id number]) [address] [place] [address] Hematocrit (Bld) [Volume fraction] 31.2 % Low 35-47 [facility] Comment on above: Performed By: #### C MP, THYR, 2284-03, 2132-04, 12492-0 #### [facility] ([id number]) [address] [place] [address] Hemoglobin (Bld) [Mass/Vol] 10.3 g/dL Low 11.7-15.5 [facility] Comment on above: Performed By: #### C MP, THYR, 2284-03, 2132-04, 18979-1 #### [facility] ([id number]) [address] [place] [address] Lymphocytes (Bld) [#/Vol] 1.4 10*3/uL Normal 1.0-3.5 [facility] Comment on above: Performed By: #### C MP, THYR, 2284-03, 2132-04, 26735-2 #### [facility] ([id number]) [address] [place] [address] Lymphocytes/100 WBC (Bld) 11.2 % Normal [facility] Comment on above: Performed By: #### C MP, THYR, 2284-03, 2132-04, 15568-3 #### [facility] ([id number]) [address] [facility] [address] [place] [address] MCH (RBC) [Entitic mass] 32.1 pg Normal 27-34 [facility] Comment on above: Performed By: #### C MP, THYR, 2284-03, 2132-04, 08157-2 #### [facility] ([id number]) [address] [place] [address] MCHC (RBC) [Mass/Vol] 33.0 g/dL Normal 32-36 [facility] Comment on above: Performed By: #### C MP, THYR, 2284-03, 2132-04, 54599-0 #### [facility] ([id number]) [address] [place] [address] MCV (RBC) [Entitic vol] 97 fL Normal 80-100 [facility] Comment on above: Performed By: #### C MP, THYR, 2284-03, 2132-04, 00663-9 #### [facility] ([id number]) [address] [place] [address] Metamyelocytes/100 WBC (Bld) 0.9 % Normal [facility] Comment on above: Performed By: #### C MP, THYR, 2284-03, 2132-04, 72496-5 #### [facility] ([id number]) [address] [place] [address] Monocytes (Bld) [#/Vol] 4.6 10*3/uL High 0-0.9 [facility] Comment on above: Performed By: #### C MP, THYR, 2283-8, 2132-04, 29201-7 #### [facility] ([id number]) [address] [place] [address] Monocytes/100 WBC (Bld) 37.4 % Normal [facility] Comment on above: Performed By: #### C MP, THYR, 2284-03, 2132-04, 54365-4 #### [facility] ([id number]) [address] [place] [address] MYELOCYTE 1.9 % Normal [facility] Comment on above: Performed By: #### C MP, THYR, 2284-03, 2132-04, 48775-4 #### [facility] ([id number]) [address] [place] [address] Neutrophils (Bld) [#/Vol] 6.0 10*3/uL Normal 1.5-6.6 [facility] Comment on above: Performed By: #### C MP, THYR, 2284-03, 9, 50653-3 #### [facility] ([id number]) [address] [place] [address] Platelet mean volume (Bld) [Entitic vol] 7.7 fL Normal 7-12 [facility] Comment on above: Performed By: #### C MP, THYR, 2284-03, 2132-04, 12603-2 #### [facility] ([id number]) [address] [place] [address] Platelets (Bld) [#/Vol] 169 10*3/uL Normal 150-450 [facility] Comment on above: Performed By: #### C MP, THYR, 2284-03, 2132-04, 64635-4 #### [facility] ([id number]) [address] [place] [address] RBC COUNT 3.21 X10E12/L Low 3.80-5.20 [facility] Comment on above: Performed By: #### C MP, THYR, 2284-03, 2132-04, 53833-5 #### [facility] ([id number]) [address] [place] [address] RBC morphology finding Nom (Bld) NORMAL Normal [facility] Comment on above: Performed By: #### C MP, THYR, 2284-03, 2132-04, 74234-2 #### [facility] ([id number]) [address] [facility] [address] [place] [address] SEG NEUTROPHIL 48.6 % Normal [facility] Comment on above: Performed By: #### C MP, THYR, 2284-03, 2132-04, 83078-1 #### [facility] ([id number]) [address] [facility] [address] [place] [address] WBC (Bld) [#/Vol] 12.3 10*3/uL High 4.0-11.0 [facility] Comment on above: Performed By: #### C MP, THYR, 2284-03, 2132-04, 62550-4 #### [facility] ([id number]) [address] [place] [address] COMPREHENSIVE METABOLIC PANE Keenan 08-19-2023 Albumin [Mass/Vol] 1.9 g/dL Low 3.2-5.3 [facility] Comment on above: Performed By: #### C MP, THYR, 2284-03, 9, 49156-2 #### [facility] ([id number]) [address] [place] [address] ALP [Catalytic activity/Vol] 38 U/L Low 39-130 [facility] Comment on above: Performed By: #### C MP, THYR, 2284-03, 2132-04, 44614-5 #### [facility] ([id number]) [address] [place] [address] ALT [Catalytic activity/Vol] 8 U/L Normal 0-31 [facility] Comment on above: Performed By: #### C MP, THYR, 2284-03, 2132-04, 79036-0 #### [facility] ([id number]) [address] [place] [address] Anion gap [Moles/Vol] 6 mmol/L Normal 5-15 [facility] Comment on above: Performed By: #### C MP, THYR, 2284-03, 2132-04, 71874-5 #### [facility] ([id number]) [address] [place] [address] AST [Catalytic activity/Vol] 12 U/L Normal 0-41 [facility] Comment on above: Performed By: #### C MP, THYR, 2284-03, 2132-04, 14448-9 #### [facility] ([id number]) [address] [place] [address] Bilirubin [Mass/Vol] 0.4 mg/dL Normal 0.3-1.2 [facility] Comment on above: Performed By: #### C MP, THYR, 2284-03, 2132-04, 75049-5 #### [facility] ([id number]) [address] [place] [address] Calcium [Mass/Vol] 7.8 mg/dL Low 8.5-10.5 [facility] Comment on above: Performed By: #### C MP, THYR, 2284-03, 2132-04, 10281-7 #### [facility] ([id number]) [address] [place] [address] Chloride [Moles/Vol] 103 mmol/L Normal 98-109 [facility] Comment on above: Performed By: #### C MP, THYR, 2284-03, 2132-04, 79451-4 #### [facility] ([id number]) [address] [place] [address] CO2 [Moles/Vol] 25 mmol/L Normal 22-32 [facility] Comment on above: Performed By: #### C MP, THYR, 2284-03, 2132-04, 38175-8 #### [facility] ([id number]) [address] [place] [address] Creatinine [Mass/Vol] 1.40 mg/dL High 0.40-1.00 [facility] Comment on above: Result Comment: METH OD TRACEABLE TO IDMS STANDARD Performed By: #### C BARTOLO, THYR, 2284-03, 2132-04, 57107-5 #### [facility] ([id number]) [address] [place] [address] GFR/1.73 sq M.predicted among non-blacks MDRD (S/P/Bld) [Vol rate/Area] 40 mL/min/{1.73_m2} Low >59 [facility] Comment on above: Result Comment: Reported eGFR is based on the CKD-EPI 2020 equation that does not use a race coefficient. Performed By: #### C MP, THYR, 2284-03, 2132-04, 43830-4 #### [facility] ([id number]) [address] [place] [address] Glucose [Mass/Vol] 93 mg/dL Normal 65-99 [facility] Comment on above: Performed By: #### C MP, THYR, 2284-03, 2132-04, 77497-7 #### [facility] ([id number]) [address] [place] [address] Potassium [Moles/Vol] 4.1 mmol/L Normal 3.5-5.0 [facility] Comment on above: Performed By: #### C MP, THYR, 2284-03, 2132-04, 82614-4 #### [facility] ([id number]) [address] [place] [address] Protein [Mass/Vol] 5.7 g/dL Low 6.0-8.0 [facility] Comment on above: Performed By: #### C MP, THYR, 2284-03, 2132-04, 59535-0 #### [facility] ([id number]) [address] [place] [address] Sodium [Moles/Vol] 134 mmol/L Normal 134-146 [facility] Comment on above: Performed By: #### C MP, THYR, 2284-03, 2132-04, 08896-8 #### [facility] ([id number]) [address] [place] [address] Urea nitrogen [Mass/Vol] 20 mg/dL Normal 5-27 [facility] Comment on above: Performed By: #### C MP, THYR, 2284-03, 2132-04, 02675-9 #### [facility] ([id number]) [address] [place] [address] MAGNESIUMon 08-19-2023 Magnesium [Mass/Vol] 2.4 mg/dL Normal 1.8-2.6 [facility] Comment on above: Performed By: #### C MP, THYR, 2284-03, 2132-04, 24236-6 #### [facility] ([id number]) [address] [place] [address] Magnesium [Mass/Vol] 1.9 mg/dL Normal 1.8-2.6 [facility] Comment on above: Performed By: #### C BARTOLO THYR, 2284-03, 2132-04, 44658-5 #### [facility] ([id number]) [address] [place] [address] Valproate Free [Mass/Vol]on 08-19-2023 VALPROIC ACID FREE 22.9 ug/mL Normal 4.0-30.0 [facility] Comment on above: Result Comment: NOTE Reference ranges and high/low indicator flags are provided as general guidelines only. The treating physician must determine appropriate target levels/dosing based on the specific clinical situation. This test was developed and its performance characteristics determined by [facility] [place] ([facility]). It has not been cleared or approved by the FDA. [facility] is regulated under CLIA as qualified to perform high-complexity testing. This test is used for clinical purposes. It should not be regarded as investigational or for research. Test Performed By: [place] [address] [employer]: Casey Pineda III, M.D. CLIA #[id number] Performed By: #### C BARTOLO THYR, 2284-03, 2132-04, 91646-5 #### [facility] ([id number]) [address] [place] [address] CBC AND AUTO DIFFon 08-18-19 24 Band form neutrophils/100 WBC (Bld) 7.6 % Normal [facility] Comment on above: Performed By: #### C BARTOLO THYR, 2284-03, 2132-04, 47709-8 #### [facility] ([id number]) [address] [place] [address] Erythrocyte distribution width (RBC) [Ratio] 14.3 % Normal 11.5-15.0 [facility] Comment on above: Performed By: #### C BARTOLO THYR, 2284-03, 2132-04, 98115-3 #### [facility] ([id number]) [address] [place] [address] Hematocrit (Bld) [Volume fraction] 30.7 % Low 35-47 [facility] Comment on above: Performed By: #### C MP, THYR, 2284-03, 2132-04, 43120-2 #### [facility] ([id number]) [address] [facility] [address] [place] [address] Hemoglobin (Bld) [Mass/Vol] 10.1 g/dL Low 11.7-15.5 [facility] Comment on above: Performed By: #### C MP, THYR, 2284-03, 2132-04, 02829-8 #### [facility] ([id number]) [address] [place] [address] Lymphocytes (Bld) [#/Vol] 1.0 10*3/uL Normal 1.0-3.5 [facility] Comment on above: Performed By: #### C MP, THYR, 2284-03, 2132-04, 90317-2 #### [facility] ([id number]) [address] [place] [address] Lymphocytes/100 WBC (Bld) 8.6 % Normal [facility] Comment on above: Performed By: #### C MP, THYR, 2284-03, 2132-04, 43168-8 #### [facility] ([id number]) [address] [place] [address] MCH (RBC) [Entitic mass] 32.0 pg Normal 27-34 [facility] Comment on above: Performed By: #### C MP, THYR, 2284-03, 2132-04, 75538-6 #### [facility] ([id number]) [address] [place] [address] MCHC (RBC) [Mass/Vol] 32.9 g/dL Normal 32-36 [facility] Comment on above: Performed By: #### C MP, THYR, 2284-03, 2132-04, 52399-0 #### [facility] ([id number]) [address] [place] [address] MCV (RBC) [Entitic vol] 97 fL Normal 80-100 [facility] Comment on above: Performed By: #### C MP, THYR, 2284-03, 2132-04, 07848-9 #### [facility] ([id number]) [address] [place] [address] Metamyelocytes/100 WBC (Bld) 1.0 % Normal [facility] Comment on above: Performed By: #### C MP, THYR, 2284-03, 2132-04, 35397-0 #### [facility] ([id number]) [address] [place] [address] Monocytes (Bld) [#/Vol] 2.6 10*3/uL High 0-0.9 [facility] Comment on above: Performed By: #### C MP, THYR, 2284-03, 2132-04, 30787-6 #### [facility] ([id number]) [address] [place] [address] Monocytes/100 WBC (Bld) 22.9 % Normal [facility] Comment on above: Performed By: #### C MP, THYR, 2284-03, 2132-04, 56227-3 #### [facility] ([id number]) [address] [place] [address] MYELOCYTE 2.9 % Normal [facility] Comment on above: Performed By: #### C MP, THYR, 2284-03, 2132-04, 15245-6 #### [facility] ([id number]) [address] [place] [address] Neutrophils (Bld) [#/Vol] 7.4 10*3/uL High 1.5-6.6 [facility] Comment on above: Performed By: #### C MP, THYR, 2284-03, 2132-04, 02943-8 #### [facility] ([id number]) [address] [place] [address] Platelet mean volume (Bld) [Entitic vol] 7.8 fL Normal 7-12 [facility] Comment on above: Performed By: #### C MP, THYR, 2284-03, 2132-04, 30637-5 #### [facility] ([id number]) [address] [place] [address] Platelets (Bld) [#/Vol] 178 10*3/uL Normal 150-450 [facility] Comment on above: Performed By: #### C MP, THYR, 2284-03, 2132-04, 85883-3 #### [facility] ([id number]) [address] [place] [address] RBC COUNT 3.16 X10E12/L Low 3.80-5.20 [facility] Comment on above: Performed By: #### C MP, THYR, 2284-03, 2132-04, 04247-5 #### [facility] ([id number]) [address] [place] [address] RBC morphology finding Nom (Bld) NORMAL Normal [facility] Comment on above: Performed By: #### C MP, THYR, 2284-03, 2132-04, 62100-4 #### [facility] ([id number]) [address] [place] [address] SEG NEUTROPHIL 57.0 % Normal [facility] Comment on above: Performed By: #### C MP, THYR, 8, 2132-04, 51797-7 #### [facility] ([id number]) [address] [place] [address] TOXIC GRANULATION 1+ Abnormal NONE [facility] Comment on above: Performed By: #### C MP, THYR, 8, 2132-04, 77914-9 #### [facility] ([id number]) [address] [place] [address] WBC (Bld) [#/Vol] 11.4 10*3/uL High 4.0-11.0 [facility] Comment on above: Performed By: #### C MP, THYR, 2284-03, 2132-04, 34443-6 #### [facility] ([id number]) [address] [place] [address] COMPREHENSIVE METABOLIC PANE Keenan 08-18-2023 Albumin [Mass/Vol] 1.9 g/dL Low 3.2-5.3 [facility] Comment on above: Performed By: #### C MP, THYR, 2284-03, 2132-04, 88611-3 #### [facility] ([id number]) [address] [place] [address] ALP [Catalytic activity/Vol] 35 U/L Low 39-130 [facility] Comment on above: Performed By: #### C MP, THYR, 8, 9, 13631-7 #### [facility] ([id number]) [address] [place] [address] ALT [Catalytic activity/Vol] 9 U/L Normal 0-31 [facility] Comment on above: Performed By: #### C MP, THYR, 2284-03, 2132-04, 06981-7 #### [facility] ([id number]) [address] [place] [address] Anion gap [Moles/Vol] 7 mmol/L Normal 5-15 [facility] Comment on above: Performed By: #### C MP, THYR, 2284-03, 2132-04, 85892-7 #### [facility] ([id number]) [address] [place] [address] AST [Catalytic activity/Vol] 12 U/L Normal 0-41 [facility] Comment on above: Performed By: #### C MP, THYR, 2284-03, 2132-04, 63002-8 #### [facility] ([id number]) [address] [place] [address] Bilirubin [Mass/Vol] 0.4 mg/dL Normal 0.3-1.2 [facility] Comment on above: Performed By: #### C MP, THYR, 2284-03, 2132-04, 36587-3 #### [facility] ([id number]) [address] [place] [address] Calcium [Mass/Vol] 7.8 mg/dL Low 8.5-10.5 [facility] Comment on above: Performed By: #### C MP, THYR, 2284-03, 2132-04, 63803-5 #### [facility] ([id number]) [address] [place] [address] Chloride [Moles/Vol] 102 mmol/L Normal 98-109 [facility] Comment on above: Performed By: #### C MP, THYR, 2284-03, 2132-04, 88759-1 #### [facility] ([id number]) [address] [place] [address] CO2 [Moles/Vol] 24 mmol/L Normal 22-32 [facility] Comment on above: Performed By: #### C MP, THYR, 2284-03, 2132-04, 91373-7 #### [facility] ([id number]) [address] [place] [address] Creatinine [Mass/Vol] 1.48 mg/dL High 0.40-1.00 [facility] Comment on above: Result Comment: METH OD TRACEABLE TO IDMS STANDARD Performed By: #### C MP, THYR, 2284-03, 2132-04, 25150-1 #### [facility] ([id number]) [address] [place] [address] GFR/1.73 sq M.predicted among non-blacks MDRD (S/P/Bld) [Vol rate/Area] 37 mL/min/{1.73_m2} Low >59 [facility] Comment on above: Result Comment: Reported eGFR is based on the CKD-EPI 2020 equation that does not use a race coefficient. Performed By: #### C MP, THYR, 2284-03, 2132-04, 04747-1 #### [facility] ([id number]) [address] [place] [address] Glucose [Mass/Vol] 92 mg/dL Normal 65-99 [facility] Comment on above: Performed By: #### C BARTOLO, THYR, 2284-03, 2132-04, 84291-0 #### [facility] ([id number]) [address] [place] [address] Potassium [Moles/Vol] 3.8 mmol/L Normal 3.5-5.0 [facility] Comment on above: Performed By: #### C MP, THYR, 2284-03, 2132-04, 86778-4 #### [facility] ([id number]) [address] [place] [address] Protein [Mass/Vol] 5.5 g/dL Low 6.0-8.0 [facility] Comment on above: Performed By: #### C MP, THYR, 8, 9, 48129-5 #### [facility] ([id number]) [address] [place] [address] Sodium [Moles/Vol] 133 mmol/L Low 134-146 [facility] Comment on above: Performed By: #### C MP, THYR, 8, 9, 95378-3 #### [facility] ([id number]) [address] [place] [address] Urea nitrogen [Mass/Vol] 19 mg/dL Normal 5-27 [facility] Comment on above: Performed By: #### C MP, THYR, 2284-03, 9, 56705-0 #### [facility] ([id number]) [address], [address] [place] [address] CT BRAIN WO CONTon CT BRAIN WO [...] Hernandez MD on 08/18/2023 11:00 AM Normal [facility] MAGNESIUMon 08-18-2023 Magnesium [Mass/Vol] 2.1 mg/dL Normal 1.8-2.6 [facility] Comment on above: Performed By: #### C MP, THYR, 2284-03, 2132-04, 18405-6 #### [facility] ([id number]) [address], [address] [place] [address] POTASSIUMon 08-18-2023 Potassium [Moles/Vol] 4.1 mmol/L Normal 3.5-5.0 [facility] Comment on above: Performed By: #### C MP, THYR, 2284-03, 2132-04, 81940-4 #### [facility] ([id number]) [address], [facility] [address] [place] [address] CBC AND AUTO DIFFon 08-17-19 24 Band form neutrophils/100 WBC (Bld) 2.8 % Normal [facility] Comment on above: Performed By: #### C MP, THYR, 2284-03, 2132-04, 17590-0 #### [facility] ([id number]) [address] [address] Erythrocyte distribution width (RBC) [Ratio] 14.4 % Normal 11.5-15.0 [facility] Comment on above: Performed By: #### C MP, THYR, 2284-03, 2132-04, 91111-0 #### [facility] ([id number]) [address] [address] [place] [address] Hematocrit (Bld) [Volume fraction] 31.6 % Low 35-47 [facility] Comment on above: Performed By: #### C MP, THYR, 2284-03, 2132-04, 10569-8 #### [facility] ([id number]) [address] [address] [place] [address] Hemoglobin (Bld) [Mass/Vol] 10.5 g/dL Low 11.7-15.5 [facility] Comment on above: Performed By: #### C MP, THYR, 2284-03, 2132-04, 97186-0 #### [facility] ([id number]) [address], [address] [place] [address] Lymphocytes (Bld) [#/Vol] 1.0 10*3/uL Normal 1.0-3.5 [facility] Comment on above: Performed By: #### C MP, THYR, 2284-03, 2132-04, 32396-0 #### [facility] ([id number]) [address], [address] [place] [address] Lymphocytes/100 WBC (Bld) 8.5 % Normal [facility] Comment on above: Performed By: #### C MP, THYR, 2284-03, 2132-04, 10489-1 #### [facility] ([id number]) [address], [address] [place] [address] MCH (RBC) [Entitic mass] 32.2 pg Normal 27-34 [facility] Comment on above: Performed By: #### C MP, THYR, 2284-03, 2132-04, 18564-5 #### [facility] ([id number]) [address], [address] [place] [address] MCHC (RBC) [Mass/Vol] 33.1 g/dL Normal 32-36 [facility] Comment on above: Performed By: #### C MP, THYR, 2284-03, 2132-04, 66076-6 #### [facility] ([id number]) [address], [address] [place] [address] MCV (RBC) [Entitic vol] 97 fL Normal 80-100 [facility] Comment on above: Performed By: #### C MP, THYR, 2284-03, 2132-04, 39768-8 #### [facility] ([id number]) [address], [address] [place] [address] Metamyelocytes/100 WBC (Bld) 1.9 % Normal [facility] Comment on above: Performed By: #### C MP, THYR, 2283-8, 9, 88883-5 #### [facility] ([id number]) [address], [address] [place] [address] Monocytes (Bld) [#/Vol] 2.8 10*3/uL High 0-0.9 [facility] Comment on above: Performed By: #### C MP, THYR, 2283-8, 2132-04, 55771-1 #### [facility] ([id number]) [address], [address] [place] [address] Monocytes/100 WBC (Bld) 23.6 % Normal [facility] Comment on above: Performed By: #### C MP, THYR, 2284-03, 2132-04, 19788-9 #### [facility] ([id number]) [address] [place] [address] MYELOCYTE 2.8 % Normal [facility] Comment on above: Performed By: #### C MP, THYR, 2284-03, 2132-04, 11701-6 #### [facility] ([id number]) [address], [address] [place] [address] Neutrophils (Bld) [#/Vol] 7.5 10*3/uL High 1.5-6.6 [facility] Comment on above: Performed By: #### C MP, THYR, 2283-, 2132-04, 22015-8 #### [facility] ([id number]) [address], [address] [place] [address] Platelet mean volume (Bld) [Entitic vol] 8.0 fL Normal 7-12 [facility] Comment on above: Performed By: #### C MP, THYR, 2283-8, 9, 93220-0 #### [facility] ([id number]) [address], [address] [place] [address] Platelets (Bld) [#/Vol] 181 10*3/uL Normal 150-450 [facility] Comment on above: Performed By: #### C MP, THYR, 228-8, 9, 67047-0 #### [facility] ([id number]) [address], [facility] [address] [place] [address] RBC COUNT 3.25 X10E12/L Low 3.80-5.20 [facility] Comment on above: Performed By: #### C MP, THYR, 2283-8, 9, 27846-1 #### [facility] ([id number]) [address], [facility] [address] [place] [address] RBC morphology finding Nom (Bld) NORMAL Normal [facility] Comment on above: Performed By: #### C MP, THYR, 2283-, 2132-04, 37843-6 #### [facility] ([id number]) [address] [address] [place] [address] SEG NEUTROPHIL 60.4 % Normal [facility] Comment on above: Performed By: #### C MP, THYR, 228-8, 2132-04, 98097-5 #### [facility] ([id number]) [address], [facility] [address] [place] [address] TOXIC GRANULATION 1+ Abnormal NONE [facility] Comment on above: Performed By: #### C MP, THYR, 228-8, 9, 09287-1 #### [facility] ([id number]) [address] [address] [place] [address] WBC (Bld) [#/Vol] 12.0 10*3/uL High 4.0-11.0 [facility] Comment on above: Performed By: #### C MP, THYR, 228-8, 2132-04, 62512-8 #### [facility] ([id number]) [address], [address] [place] [address] COMPREHENSIVE METABOLIC PANE Keenan 08-17-2023 Albumin [Mass/Vol] 2.0 g/dL Low 3.2-5.3 [facility] Comment on above: Performed By: #### C MP, THYR, 2284-03, 2132-04, 17619-5 #### [facility] ([id number]) [address], [address] [place] [address] ALP [Catalytic activity/Vol] 38 U/L Low 39-130 [facility] Comment on above: Performed By: #### C MP, THYR, 2284-03, 2132-04, 72904-1 #### [facility] ([id number]) [address], [address] [place] [address] ALT [Catalytic activity/Vol] 11 U/L Normal 0-31 [facility] Comment on above: Performed By: #### C MP, THYR, 2284-03, 2132-04, 07976-3 #### [facility] ([id number]) [address], [address] [place] [address] Anion gap [Moles/Vol] 4 mmol/L Low 5-15 [facility] Comment on above: Performed By: #### C MP, THYR, 2284-03, 2132-04, 57776-4 #### [facility] ([id number]) [address], [address] [place] [address] AST [Catalytic activity/Vol] 14 U/L Normal 0-41 [facility] Comment on above: Performed By: #### C MP, THYR, 2284-03, 2132-04, 35418-9 #### [facility] ([id number]) [address], [address] [place] [address] Bilirubin [Mass/Vol] 0.4 mg/dL Normal 0.3-1.2 [facility] Comment on above: Performed By: #### C MP, THYR, 2284-03, 2132-04, 30587-8 #### [facility] ([id number]) [address], [address] [place] [address] Calcium [Mass/Vol] 7.8 mg/dL Low 8.5-10.5 [facility] Comment on above: Performed By: #### C MP, THYR, 2284-03, 2132-04, 40125-0 #### [facility] ([id number]) [address], [address] [place] [address] Chloride [Moles/Vol] 104 mmol/L Normal 98-109 [facility] Comment on above: Performed By: #### C BARTOLO, THYR, 2284-03, 2132-04, 84891-9 #### [facility] ([id number]) [address], [address] [place] [address] CO2 [Moles/Vol] 26 mmol/L Normal 22-32 [facility] Comment on above: Performed By: #### C MP, THYR, 2284-03, 2132-04, 29221-9 #### [facility] ([id number]) [address], [address] [place] [address] Creatinine [Mass/Vol] 1.51 mg/dL High 0.40-1.00 [facility] Comment on above: Result Comment: METH OD TRACEABLE TO IDMS STANDARD Performed By: #### C MP, THYR, 2284-03, 2132-04, 51621-6 #### [facility] ([id number]) [address], [address] [place] [address] GFR/1.73 sq M.predicted among non-blacks MDRD (S/P/Bld) [Vol rate/Area] 36 mL/min/{1.73_m2} Low >59 [facility] Comment on above: Result Comment: Reported eGFR is based on the CKD-EPI 2020 equation that does not use a race coefficient. Performed By: #### C MP, THYR, 2284-03, 2132-04, 72937-0 #### [facility] ([id number]) [address], [address] [place] [address] Glucose [Mass/Vol] 88 mg/dL Normal 65-99 [facility] Comment on above: Performed By: #### C MP, THYR, 2284-03, 2132-04, 82698-3 #### [facility] ([id number]) [address], [address] [place] [address] Potassium [Moles/Vol] 3.9 mmol/L Normal 3.5-5.0 [facility] Comment on above: Performed By: #### C MP, THYR, 2284-03, 2132-04, 58480-6 #### [facility] ([id number]) [address], [address] [place] [address] Protein [Mass/Vol] 5.8 g/dL Low 6.0-8.0 [facility] Comment on above: Performed By: #### C MP, THYR, 2284-03, 2132-04, 99712-7 #### [facility] ([id number]) [address], [address] [place] [address] Sodium [Moles/Vol] 134 mmol/L Normal 134-146 [facility] Comment on above: Performed By: #### C MP, THYR, 2284-03, 2132-04, 67424-1 #### [facility] ([id number]) [address], [address] [place] [address] Urea nitrogen [Mass/Vol] 18 mg/dL Normal 5-27 [facility] Comment on above: Performed By: #### C MP, THYR, 2284-03, 2132-04, 10555-1 #### [facility] ([id number]) [address], [address] [place] [address] MAGNESIUMon 08-17-2023 Magnesium [Mass/Vol] 2.3 mg/dL Normal 1.8-2.6 [facility] Comment on above: Performed By: #### C MP, THYR, 2284-03, 2132-04, 55563-1 #### [facility] ([id number]) [address] [address] CBC AND AUTO DIFFon 08-16-19 24 Band form neutrophils/100 WBC (Bld) 2.9 % Normal [facility] Comment on above: Performed By: #### C MP, THYR, 2284-03, 2132-04, 02019-7 #### [facility] ([id number]) [address] [address] Erythrocyte distribution width (RBC) [Ratio] 14.7 % Normal 11.5-15.0 [facility] Comment on above: Performed By: #### C MP, THYR, 2284-03, 2132-04, 42906-6 #### [facility] ([id number]) [address] [address] Hematocrit (Bld) [Volume fraction] 33.2 % Low 35-47 [facility] Comment on above: Performed By: #### C MP, THYR, 2284-03, 2132-04, 79757-3 #### [facility] ([id number]) [address] [address] [place] [address] Hemoglobin (Bld) [Mass/Vol] 11.0 g/dL Low 11.7-15.5 [facility] Comment on above: Performed By: #### C MP, THYR, 2284-03, 2132-04, 80556-3 #### [facility] ([id number]) [address] [place] [address] Lymphocytes (Bld) [#/Vol] 1.2 10*3/uL Normal 1.0-3.5 [facility] Comment on above: Performed By: #### C MP, THYR, 2284-03, 2132-04, 14131-3 #### [facility] ([id number]) [address], [facility] [address] [place] [address] Lymphocytes/100 WBC (Bld) 9.5 % Normal [facility] Comment on above: Performed By: #### C MP, THYR, 2284-03, 2132-04, 84694-9 #### [facility] ([id number]) [address], [address] [address] MCH (RBC) [Entitic mass] 32.3 pg Normal 27-34 [facility] Comment on above: Performed By: #### C MP, THYR, 2284-03, 2132-04, 94695-2 #### [facility] ([id number]) [address] [address] [place] [address] MCHC (RBC) [Mass/Vol] 33.1 g/dL Normal 32-36 [facility] Comment on above: Performed By: #### C MP, THYR, 2284-03, 2132-04, 20534-2 #### [facility] ([id number]) [address], [facility] [address] [place] [address] MCV (RBC) [Entitic vol] 98 fL Normal 80-100 [facility] Comment on above: Performed By: #### C MP, THYR, 2284-03, 2132-04, 93646-4 #### [facility] ([id number]) [address] [address] [place] [address] Metamyelocytes/100 WBC (Bld) 1.9 % Normal [facility] Comment on above: Performed By: #### C MP, THYR, 2284-03, 2132-04, 97064-3 #### [facility] ([id number]) [address], [address] [place] [address] Monocytes (Bld) [#/Vol] 2.0 10*3/uL High 0-0.9 [facility] Comment on above: Performed By: #### C MP, THYR, 2284-03, 2132-04, 56744-0 #### [facility] ([id number]) [address], [address] [place] [address] Monocytes/100 WBC (Bld) 15.2 % Normal [facility] Comment on above: Performed By: #### C MP, THYR, 2284-03, 2132-04, 89882-3 #### [facility] ([id number]) [address], [address] [place] [address] MYELOCYTE 1.0 % Normal [facility] Comment on above: Performed By: #### C MP, THYR, 2284-03, 2132-04, 97321-2 #### [facility] ([id number]) [address], [address] [place] [address] Neutrophils (Bld) [#/Vol] 9.4 10*3/uL High 1.5-6.6 [facility] Comment on above: Performed By: #### C MP, THYR, 2284-03, 2132-04, 34607-6 #### [facility] ([id number]) [address], [address] [place] [address] Platelet mean volume (Bld) [Entitic vol] 8.1 fL Normal 7-12 [facility] Comment on above: Performed By: #### C MP, THYR, 2284-03, 2132-04, 98929-9 #### [facility] ([id number]) [address], [address] [place] [address] Platelets (Bld) [#/Vol] 190 10*3/uL Normal 150-450 [facility] Comment on above: Performed By: #### C MP, THYR, 2284-03, 2132-04, 59498-5 #### [facility] ([id number]) [address], [address] [place] [address] RBC COUNT 3.40 X10E12/L Low 3.80-5.20 [facility] Comment on above: Performed By: #### C MP, THYR, 8, 2132-04, 55553-8 #### [facility] ([id number]) [address], [address] [place] [address] RBC morphology finding Nom (Bld) NORMAL Normal [facility] Comment on above: Performed By: #### C MP, THYR, 2284-03, 2132-04, 87321-2 #### [facility] ([id number]) [address], [address] [place] [address] SEG NEUTROPHIL 69.5 % Normal [facility] Comment on above: Performed By: #### C MP, THYR, 2284-03, 2132-04, 37417-1 #### [facility] ([id number]) [address], [address] [place] [address] WBC (Bld) [#/Vol] 12.9 10*3/uL High 4.0-11.0 [facility] Comment on above: Performed By: #### C MP, THYR, 2284-03, 2132-04, 66345-5 #### [facility] ([id number]) [address], [address] [place] [address] COMPREHENSIVE METABOLIC PANE Keenan 08-16-2023 Albumin [Mass/Vol] 2.0 g/dL Low 3.2-5.3 [facility] Comment on above: Performed By: #### C MP, THYR, 2284-03, 2132-04, 26033-2 #### [facility] ([id number]) [address], [address] [place] [address] ALP [Catalytic activity/Vol] 40 U/L Normal 39-130 [facility] Comment on above: Performed By: #### C MP, THYR, 2284-03, 2132-04, 64919-8 #### [facility] ([id number]) [address], [address] [place] [address] ALT [Catalytic activity/Vol] 8 U/L Normal 0-31 [facility] Comment on above: Performed By: #### C MP, THYR, 2284-03, 2132-04, 98807-0 #### [facility] ([id number]) [address] [place] [address] Anion gap [Moles/Vol] 7 mmol/L Normal 5-15 [facility] Comment on above: Performed By: #### C MP, THYR, 2284-03, 2132-04, 67478-0 #### [facility] ([id number]) [address], [address] [place] [address] AST [Catalytic activity/Vol] 15 U/L Normal 0-41 [facility] Comment on above: Performed By: #### C MP, THYR, 2284-03, 2132-04, 76353-9 #### [facility] ([id number]) [address] [place] [address] Bilirubin [Mass/Vol] 0.4 mg/dL Normal 0.3-1.2 [facility] Comment on above: Performed By: #### C MP, THYR, 2284-03, 2132-04, 86899-5 #### [facility] ([id number]) [address] [place] [address] Calcium [Mass/Vol] 7.9 mg/dL Low 8.5-10.5 [facility] Comment on above: Performed By: #### C BARTOLO, THYR, 2284-03, 2132-04, 06340-2 #### [facility] ([id number]) [address] [place] [address] Chloride [Moles/Vol] 104 mmol/L Normal 98-109 [facility] Comment on above: Performed By: #### C MP, THYR, 2284-03, 2132-04, 61914-1 #### [facility] ([id number]) [address] [place] [address] CO2 [Moles/Vol] 23 mmol/L Normal 22-32 [facility] Comment on above: Performed By: #### C BARTOLO, THYR, 2284-03, 2132-04, 94830-7 #### [facility] ([id number]) [address] [place] [address] Creatinine [Mass/Vol] 1.37 mg/dL High 0.40-1.00 [facility] Comment on above: Result Comment: METH OD TRACEABLE TO IDMS STANDARD Performed By: #### C BARTOLO, THYR, 2284-03, 2132-04, 45220-6 #### [facility] ([id number]) [address] [place] [address] GFR/1.73 sq M.predicted among non-blacks MDRD (S/P/Bld) [Vol rate/Area] 41 mL/min/{1.73_m2} Low >59 [facility] Comment on above: Result Comment: Reported eGFR is based on the CKD-EPI 2020 equation that does not use a race coefficient. Performed By: #### C MP, THYR, 2284-03, 2132-04, 61503-1 #### [facility] ([id number]) [address] [place] [address] Glucose [Mass/Vol] 96 mg/dL Normal 65-99 [facility] Comment on above: Performed By: #### C MP, THYR, 2284-03, 2132-04, 55624-8 #### [facility] ([id number]) [address] [place] [address] Potassium [Moles/Vol] 4.0 mmol/L Normal 3.5-5.0 [facility] Comment on above: Performed By: #### C MP, THYR, 2284-03, 2132-04, 04905-9 #### [facility] ([id number]) [address] [place] [address] Protein [Mass/Vol] 5.8 g/dL Low 6.0-8.0 [facility] Comment on above: Performed By: #### C MP, THYR, 2284-03, 2132-04, 50072-9 #### [facility] ([id number]) [address] [place] [address] Sodium [Moles/Vol] 134 mmol/L Normal 134-146 [facility] Comment on above: Performed By: #### C MP, THYR, 2284-03, 2132-04, 82014-4 #### [facility] ([id number]) [address] [place] [address] Urea nitrogen [Mass/Vol] 17 mg/dL Normal 5-27 [facility] Comment on above: Performed By: #### C MP, THYR, 2284-03, 2132-04, 24659-9 #### [facility] ([id number]) [address] [place] [address] Calcium.ionized (Bld) [Moles /Vol]on 08-16-2023 PORTABLE ICA 4.8 mg/dL Normal 4.5-5.3 [facility] Comment on above: Performed By: #### C MP, THYR, 2284-03, 2132-04, 36617-8 #### [facility] ([id number]) [address] [place] [address] Lipid 1996 panelon 4 Cholesterol [Mass/Vol] 94 mg/dL Low 150-200 [facility] Comment on above: Performed By: #### Ever MCFARLAND, THYR, 2284-03, 2132-04, 61460-9 #### [facility] ([id number]) [address] [place] [address] Cholesterol in HDL [Mass/Vol] 19 mg/dL Low >39 [facility] Comment on above: Result Comment: HDL <40 mg/dL - High Risk HDL > or = 40mg/dL- Desirable HDL >60 mg/dL - Negative Risk Performed By: #### Ever MCFARLAND, THYR, 2284-03, 2132-04, 05285-5 #### [facility] ([id number]) [address] [place] [address] Cholesterol in LDL [Mass/Vol] 51 mg/dL Normal <130 [facility] Comment on above: Result Comment: LDL <100 mg/dL - Desirable LDL >160 mg/dL - High Risk Performed By: #### Ever MCFARLAND, THYR, 2284-03, 2132-04, 01415-2 #### [facility] ([id number]) [address] [place] [address] Cholesterol in VLDL [Mass/Vol] 24 mg/dL Normal 0-30 [facility] Comment on above: Performed By: #### Ever MP, THYR, 2284-03, 2132-04, 11233-3 #### [facility] ([id number]) [address] [place] [address] CHOLESTEROL:HDL 4.9 Normal 1.0-5.0 [facility] Comment on above: Performed By: #### C MP, THYR, 2284-03, 2132-04, 03503-6 #### [facility] ([id number]) [address] [place] [address] Triglyceride [Mass/Vol] 122 mg/dL Normal 27-150 [facility] Comment on above: Performed By: #### C MP, THYR, 2284-03, 2132-04, 52850-9 #### [facility] ([id number]) [address] [place] [address] MAGNESIUMon 08-16-2023 Magnesium [Mass/Vol] 2.6 mg/dL Normal 1.8-2.6 [facility] Comment on above: Performed By: #### C MP, THYR, 2284-03, 2132-04, 99837-0 #### [facility] ([id number]) [address], [address] [place] [address] Magnesium [Mass/Vol] 1.8 mg/dL Normal 1.8-2.6 [facility] Comment on above: Performed By: #### C MP, THYR, 2284-03, 2132-04, 65429-7 #### [facility] ([id number]) [address], [address] [place] [address] CBC AND AUTO DIFFon 08-15-19 24 ABSOLUTE BASOPHIL 0.0 X10E9/L Normal 0.0-0.2 [facility] Comment on above: Performed By: #### C MP, THYR, 2284-03, 2132-04, 05134-0 #### [facility] ([id number]) [address], [address] [place] [address] ABSOLUTE NEUTROPHIL 8.0 X10E9/L High 1.5-6.6 [facility] Comment on above: Performed By: #### C MP, THYR, 2284-03, 2132-04, 80112-2 #### [facility] ([id number]) [address], [address] [place] [address] Basophils/100 WBC (Bld) 0.2 % Normal [facility] Comment on above: Performed By: #### C MP, THYR, 2284-03, 2132-04, 72162-5 #### [facility] ([id number]) [address], [address] [place] [address] Eosinophils (Bld) [#/Vol] 0.1 10*3/uL Normal 0.0-0.4 [facility] Comment on above: Performed By: #### C MP, THYR, 2284-03, 2132-04, 16047-2 #### [facility] ([id number]) [address], [address] [place] [address] Eosinophils/100 WBC (Bld) 0.8 % Normal [facility] Comment on above: Performed By: #### C MP, THYR, 2284-03, 2132-04, 73871-2 #### [facility] ([id number]) [address], [address] [place] [address] Erythrocyte distribution width (RBC) [Ratio] 14.4 % Normal 11.5-15.0 [facility] Comment on above: Performed By: #### C MP, THYR, 2284-03, 2132-04, 56796-2 #### [facility] ([id number]) [address], [address] [place] [address] Hematocrit (Bld) [Volume fraction] 31.3 % Low 35-47 [facility] Comment on above: Performed By: #### C MP, THYR, 2284-03, 2132-04, 69793-5 #### [facility] ([id number]) [address], [address] [place] [address] Hemoglobin (Bld) [Mass/Vol] 10.3 g/dL Low 11.7-15.5 [facility] Comment on above: Performed By: #### C MP, THYR, 2284-03, 2132-04, 72841-7 #### [facility] ([id number]) [address], [facility] [address] [place] [address] Lymphocytes (Bld) [#/Vol] 0.9 10*3/uL Low 1.0-3.5 [facility] Comment on above: Performed By: #### C MP, THYR, 2284-03, 2132-04, 35263-7 #### [facility] ([id number]) [address] [place] [address] Lymphocytes/100 WBC (Bld) 7.7 % Normal [facility] Comment on above: Performed By: #### C MP, THYR, 2284-03, 2132-04, 54591-6 #### [facility] ([id number]) [address], [address] [place] [address] MCH (RBC) [Entitic mass] 32.1 pg Normal 27-34 [facility] Comment on above: Performed By: #### C MP, THYR, 2284-03, 2132-04, 62394-7 #### [facility] ([id number]) [address], [address] [place] [address] MCHC (RBC) [Mass/Vol] 33.0 g/dL Normal 32-36 [facility] Comment on above: Performed By: #### C MP, THYR, 2284-03, 2132-04, 80437-5 #### [facility] ([id number]) [address], [address] [place] [address] MCV (RBC) [Entitic vol] 97 fL Normal 80-100 [facility] Comment on above: Performed By: #### C MP, THYR, 2284-03, 2132-04, 93113-5 #### [facility] ([id number]) [address], [address] [place] [address] Monocytes (Bld) [#/Vol] 2.2 10*3/uL High 0-0.9 [facility] Comment on above: Performed By: #### C MP, THYR, 2284-03, 2132-04, 33320-0 #### [facility] ([id number]) [address], [address] [place] [address] Monocytes/100 WBC (Bld) 20.0 % Normal [facility] Comment on above: Performed By: #### C MP, THYR, 2284-03, 2132-04, 08206-2 #### [facility] ([id number]) [address], [facility] [address] [place] [address] Neutrophils/100 WBC (Bld) 71.3 % Normal [facility] Comment on above: Performed By: #### C MP, THYR, 2284-03, 2132-04, 47820-9 #### [facility] ([id number]) [address], [address] [place] [address] Platelet mean volume (Bld) [Entitic vol] 8.1 fL Normal 7-12 [facility] Comment on above: Performed By: #### C MP, THYR, 2284-03, 2132-04, 30754-9 #### [facility] ([id number]) [address], [address] [place] [address] Platelets (Bld) [#/Vol] 186 10*3/uL Normal 150-450 [facility] Comment on above: Performed By: #### C MP, THYR, 2284-03, 2132-04, 41174-0 #### [facility] ([id number]) [address], [address] [place] [address] RBC COUNT 3.22 X10E12/L Low 3.80-5.20 [facility] Comment on above: Performed By: #### C MP, THYR, 2283-8, 9, 61605-4 #### [facility] ([id number]) [address], [address] [place] [address] WBC (Bld) [#/Vol] 11.2 10*3/uL High 4.0-11.0 [facility] Comment on above: Performed By: #### C MP, THYR, 8, 2132-04, 29215-1 #### [facility] ([id number]) [address] [place] [address] COMPREHENSIVE METABOLIC PANE [facility] 08-15-2023 Albumin [Mass/Vol] 2.0 g/dL Low 3.2-5.3 [facility] Comment on above: Performed By: #### C MP, THYR, 2284-03, 2132-04, 73273-7 #### [facility] ([id number]) [address], [address] [place] [address] ALP [Catalytic activity/Vol] 39 U/L Normal 39-130 [facility] Comment on above: Performed By: #### C MP, THYR, 2283-8, 2132-04, 42068-5 #### [facility] ([id number]) [address], [address] [place] [address] ALT [Catalytic activity/Vol] 9 U/L Normal 0-31 [facility] Comment on above: Performed By: #### C MP, THYR, 2283-8, 9, 32703-1 #### [facility] ([id number]) [address], [address] [place] [address] Anion gap [Moles/Vol] 7 mmol/L Normal 5-15 [facility] Comment on above: Performed By: #### C MP, THYR, 2284-03, 2132-04, 52964-2 #### [facility] ([id number]) [address], [address] [place] [address] AST [Catalytic activity/Vol] 16 U/L Normal 0-41 [facility] Comment on above: Performed By: #### C MP, THYR, 2284-03, 2132-04, 30620-1 #### [facility] ([id number]) [address], [address] [place] [address] Bilirubin [Mass/Vol] 0.3 mg/dL Normal 0.3-1.2 [facility] Comment on above: Performed By: #### C MP, THYR, 2284-03, 2132-04, 43236-0 #### [facility] ([id number]) [address], [address] [place] [address] Calcium [Mass/Vol] 7.9 mg/dL Low 8.5-10.5 [facility] Comment on above: Performed By: #### C MP, THYR, 2284-03, 2132-04, 01390-4 #### [facility] ([id number]) [address], [address] [place] [address] Chloride [Moles/Vol] 106 mmol/L Normal 98-109 [facility] Comment on above: Performed By: #### C MP, THYR, 2284-03, 2132-04, 16985-0 #### [facility] ([id number]) [address], [address] [place] [address] CO2 [Moles/Vol] 24 mmol/L Normal 22-32 [facility] Comment on above: Performed By: #### C MP, THYR, 2284-03, 2132-04, 05967-7 #### [facility] ([id number]) [address] [place] [address] Creatinine [Mass/Vol] 1.37 mg/dL High 0.40-1.00 [facility] Comment on above: Result Comment: METH OD TRACEABLE TO IDMS STANDARD Performed By: #### C MP, THYR, 2284-03, 2132-04, 38937-1 #### [facility] ([id number]) [address] [place] [address] GFR/1.73 sq M.predicted among non-blacks MDRD (S/P/Bld) [Vol rate/Area] 41 mL/min/{1.73_m2} Low >59 [facility] Comment on above: Result Comment: Reported eGFR is based on the CKD-EPI 2020 equation that does not use a race coefficient. Performed By: #### C MP, THYR, 2284-03, 2132-04, 45863-5 #### [facility] ([id number]) [address] [place] [address] Glucose [Mass/Vol] 90 mg/dL Normal 65-99 [facility] Comment on above: Performed By: #### C MP, THYR, 2284-03, 2132-04, 89431-5 #### [facility] ([id number]) [address] [place] [address] Potassium [Moles/Vol] 3.7 mmol/L Normal 3.5-5.0 [facility] Comment on above: Performed By: #### C MP, THYR, 2284-03, 2132-04, 39309-7 #### [facility] ([id number]) [address], [address] [place] [address] Protein [Mass/Vol] 5.8 g/dL Low 6.0-8.0 [facility] Comment on above: Performed By: #### C MP, THYR, 2284-03, 2132-04, 41301-5 #### [facility] ([id number]) [address], [address] [place] [address] Sodium [Moles/Vol] 137 mmol/L Normal 134-146 [facility] Comment on above: Performed By: #### C MP, THYR, 2284-03, 2132-04, 79334-5 #### [facility] ([id number]) [address], [address] [place] [address] Urea nitrogen [Mass/Vol] 21 mg/dL Normal 5-27 [facility] Comment on above: Performed By: #### C MP, THYR, 2284-03, 2132-04, 79741-1 #### [facility] ([id number]) [address] [place] [address] MAGNESIUMon 08-15-2023 Magnesium [Mass/Vol] 1.8 mg/dL Normal 1.8-2.6 [facility] Comment on above: Performed By: #### C MP, THYR, 2284-03, 2132-04, 27805-9 #### [facility] ([id number]) [address], [address] [place] [address] CBC AND AUTO DIFFon 08-14-20 ABSOLUTE BASOPHIL 0.0 X10E9/L Normal 0.0-0.2 [facility] Comment on above: Performed By: #### C MP, THYR, 2284-03, 2132-04, 47102-4 #### [facility] ([id number]) [address], [address] [place] [address] ABSOLUTE NEUTROPHIL 8.6 X10E9/L High 1.5-6.6 [facility] Comment on above: Performed By: #### C MP, THYR, 2284-03, 2132-04, 60838-9 #### [facility] ([id number]) [address] [place] [address] Basophils/100 WBC (Bld) 0.3 % Normal [facility] Comment on above: Performed By: #### C MP, THYR, 2284-03, 2132-04, 73135-4 #### [facility] ([id number]) [address], [address] [place] [address] Eosinophils (Bld) [#/Vol] 0.0 10*3/uL Normal 0.0-0.4 [facility] Comment on above: Performed By: #### C MP, THYR, 2284-03, 2132-04, 55477-9 #### [facility] ([id number]) [address], [address] [place] [address] Eosinophils/100 WBC (Bld) 0.3 % Normal [facility] Comment on above: Performed By: #### C MP, THYR, 2284-03, 2132-04, 01336-2 #### [facility] ([id number]) [address], [address] [place] [address] Erythrocyte distribution width (RBC) [Ratio] 14.3 % Normal 11.5-15.0 [facility] Comment on above: Performed By: #### C MP, THYR, 2284-03, 2132-04, 63114-5 #### [facility] ([id number]) [address], [address] [place] [address] Hematocrit (Bld) [Volume fraction] 32.3 % Low 35-47 [facility] Comment on above: Performed By: #### C MP, THYR, 2284-03, 2132-04, 82876-7 #### [facility] ([id number]) [address], [address] [place] [address] Hemoglobin (Bld) [Mass/Vol] 10.5 g/dL Low 11.7-15.5 [facility] Comment on above: Performed By: #### C MP, THYR, 2284-03, 2132-04, 47673-6 #### [facility] ([id number]) [address], [facility] [address] [place] [address] Lymphocytes (Bld) [#/Vol] 0.9 10*3/uL Low 1.0-3.5 [facility] Comment on above: Performed By: #### C MP, THYR, 2284-03, 2132-04, 04015-8 #### [facility] ([id number]) [address], [facility] [address] [place] [address] Lymphocytes/100 WBC (Bld) 7.9 % Normal [facility] Comment on above: Performed By: #### C MP, THYR, 2284-03, 2132-04, 46118-3 #### [facility] ([id number]) [address] [place] [address] MCH (RBC) [Entitic mass] 31.7 pg Normal 27-34 [facility] Comment on above: Performed By: #### C MP, THYR, 2284-03, 2132-04, 98596-4 #### [facility] ([id number]) [address], [address] [place] [address] MCHC (RBC) [Mass/Vol] 32.5 g/dL Normal 32-36 [facility] Comment on above: Performed By: #### C MP, THYR, 2284-03, 2132-04, 00068-8 #### [facility] ([id number]) [address] [address] [place] [address] MCV (RBC) [Entitic vol] 98 fL Normal 80-100 [facility] Comment on above: Performed By: #### C MP, THYR, 2284-03, 2132-04, 56027-4 #### [facility] ([id number]) [address], [address] [place] [address] Monocytes (Bld) [#/Vol] 2.0 10*3/uL High 0-0.9 [facility] Comment on above: Performed By: #### C MP, THYR, 2284-03, 2132-04, 96437-1 #### [facility] ([id number]) [address], [address] [place] [address] Monocytes/100 WBC (Bld) 17.2 % Normal [facility] Comment on above: Performed By: #### C MP, THYR, 2284-03, 2132-04, 38787-4 #### [facility] ([id number]) [address] [place] [address] Neutrophils/100 WBC (Bld) 74.3 % Normal [facility] Comment on above: Performed By: #### C MP, THYR, 2284-03, 2132-04, 59894-0 #### [facility] ([id number]) [address] [place] [address] Platelet mean volume (Bld) [Entitic vol] 8.4 fL Normal 7-12 [facility] Comment on above: Performed By: #### C MP, THYR, 2284-03, 2132-04, 77724-7 #### [facility] ([id number]) [address], [address] [place] [address] Platelets (Bld) [#/Vol] 207 10*3/uL Normal 150-450 [facility] Comment on above: Performed By: #### C MP, THYR, 2284-03, 2132-04, 77944-6 #### [facility] ([id number]) [address], [address] [place] [address] RBC COUNT 3.31 X10E12/L Low 3.80-5.20 [facility] Comment on above: Performed By: #### C MP, THYR, 2283-8, 9, 60804-6 #### [facility] ([id number]) [address], [address] [place] [address] RBC morphology finding Nom (Bld) NORMAL Normal [facility] Comment on above: Performed By: #### C MP, THYR, 2283-8, 9, 57200-2 #### [facility] ([id number]) [address] [place] [address] WBC (Bld) [#/Vol] 11.6 10*3/uL High 4.0-11.0 [facility] Comment on above: Performed By: #### C MP, THYR, 2283-8, 9, 41429-8 #### [facility] ([id number]) [address] [place] [address] COMPREHENSIVE METABOLIC PANE [facility] 08-14-2023 Albumin [Mass/Vol] 2.1 g/dL Low 3.2-5.3 [facility] Comment on above: Performed By: #### C MP, THYR, 2284-03, 2132-04, 35692-3 #### [facility] ([id number]) [address], [address] [place] [address] ALP [Catalytic activity/Vol] 40 U/L Normal 39-130 [facility] Comment on above: Performed By: #### C MP, THYR, 2283-8, 9, 09382-1 #### [facility] ([id number]) [address], [address] [place] [address] ALT [Catalytic activity/Vol] 11 U/L Normal 0-31 [facility] Comment on above: Performed By: #### C MP, THYR, 2284-8, 2131-9, 15589-0 #### [facility] ([id number]) [address] [place] [address] Anion gap [Moles/Vol] 6 mmol/L Normal 5-15 [facility] Comment on above: Performed By: #### C MP, THYR, 2284-03, 2132-04, 26798-7 #### [facility] ([id number]) [address], [address] [place] [address] AST [Catalytic activity/Vol] 14 U/L Normal 0-41 [facility] Comment on above: Performed By: #### C MP, THYR, 2284-03, 2132-04, 43537-9 #### [facility] ([id number]) [address], [address] [place] [address] Bilirubin [Mass/Vol] 0.5 mg/dL Normal 0.3-1.2 [facility] Comment on above: Performed By: #### C MP, THYR, 2284-03, 2132-04, 94702-2 #### [facility] ([id number]) [address] [place] [address] Calcium [Mass/Vol] 7.8 mg/dL Low 8.5-10.5 [facility] Comment on above: Performed By: #### C BARTOLO, THYR, 2284-03, 2132-04, 71461-5 #### [facility] ([id number]) [address] [place] [address] Chloride [Moles/Vol] 108 mmol/L Normal 98-109 [facility] Comment on above: Performed By: #### C MP, THYR, 2284-03, 2132-04, 45007-8 #### [facility] ([id number]) [address] [place] [address] CO2 [Moles/Vol] 24 mmol/L Normal 22-32 [facility] Comment on above: Performed By: #### C BARTOLO, THYR, 2284-03, 2132-04, 50665-6 #### [facility] ([id number]) [address] [place] [address] Creatinine [Mass/Vol] 1.50 mg/dL High 0.40-1.00 [facility] Comment on above: Result Comment: METH OD TRACEABLE TO IDMS STANDARD Performed By: #### C MP, THYR, 2284-03, 2132-04, 47950-4 #### [facility] ([id number]) [address] [place] [address] GFR/1.73 sq M.predicted among non-blacks MDRD (S/P/Bld) [Vol rate/Area] 37 mL/min/{1.73_m2} Low >59 [facility] Comment on above: Result Comment: Reported eGFR is based on the CKD-EPI 2020 equation that does not use a race coefficient. Performed By: #### C MP, THYR, 2284-03, 2132-04, 61841-4 #### [facility] ([id number]) [address] [place] [address] Glucose [Mass/Vol] 97 mg/dL Normal 65-99 [facility] Comment on above: Performed By: #### C BARTOLO, THYR, 2284-03, 2132-04, 35873-8 #### [facility] ([id number]) [address] [place] [address] Potassium [Moles/Vol] 4.1 mmol/L Normal 3.5-5.0 [facility] Comment on above: Performed By: #### C MP, THYR, 2284-03, 2132-04, 30626-6 #### [facility] ([id number]) [address] [place] [address] Protein [Mass/Vol] 6.0 g/dL Normal 6.0-8.0 [facility] Comment on above: Performed By: #### C MP, THYR, 2284-03, 2132-04, 60440-3 #### [facility] ([id number]) [address] [place] [address] Sodium [Moles/Vol] 138 mmol/L Normal 134-146 [facility] Comment on above: Performed By: #### C MP, THYR, 2284-03, 2132-04, 18679-9 #### [facility] ([id number]) [address] [place] [address] Urea nitrogen [Mass/Vol] 29 mg/dL High 5-27 [facility] Comment on above: Performed By: #### C MP, THYR, 2284-03, 2132-04, 34075-5 #### [facility] ([id number]) [address] [place] [address] Calcium.ionized (Bld) [Moles /Vol]on 08-14-2023 PORTABLE ICA 4.7 mg/dL Normal 4.5-5.3 [facility] Comment on above: Performed By: #### C MP, THYR, 2284-03, 2132-04, 15798-6 #### [facility] ([id number]) [address] [place] [address] MAGNESIUMon 08-14-2023 Magnesium [Mass/Vol] 2.1 mg/dL Normal 1.8-2.6 [facility] Comment on above: Performed By: #### C MP, THYR, 2284-03, 2132-04, 80334-7 #### [facility] ([id number]) [address] [place] [address] CBC AND AUTO DIFFon 08-13-20 23 Band form neutrophils/100 WBC (Bld) 1.9 % Normal [facility] Comment on above: Performed By: #### C BCA, CMP, , #### [facility] ([id number]) [address] [place] [address] Erythrocyte distribution width (RBC) [Ratio] 14.4 % Normal 11.5-15.0 [facility] Comment on above: Performed By: #### C BCA, CMP, , 55107-7 #### [facility] ([id number]) [address] [place] [address] Hematocrit (Bld) [Volume fraction] 39.2 % Normal 35-47 [facility] Comment on above: Performed By: #### C OLIVER, CMP, , 49305-0 #### [facility] ([id number]) [address] [place] [address] Hemoglobin (Bld) [Mass/Vol] 12.9 g/dL Normal 11.7-15.5 [facility] Comment on above: Performed By: #### C BCA [facility], , 88323-7 #### [facility] ([id number]) [address] [place] [address] LYMPHOCYTE, ATYPICAL 1.0 % Normal [facility] Comment on above: Performed By: #### C BCA, [facility], , 97102-7 #### [facility] ([id number]) [address] [place] [address] Lymphocytes (Bld) [#/Vol] 0.8 10*3/uL Low 1.0-3.5 [facility] Comment on above: Performed By: #### C BCA, CMP, , 74705-8 #### [facility] ([id number]) [address] [place] [address] Lymphocytes/100 WBC (Bld) 4.8 % Normal [facility] Comment on above: Performed By: #### C BCA, CMP, , 86080-7 #### [facility] ([id number]) [address] [place] [address] MCH (RBC) [Entitic mass] 32.2 pg Normal 27-34 [facility] Comment on above: Performed By: #### C BCA, CMP, 19893-6, 12691-9 #### [facility] ([id number]) [address] [place] [address] MCHC (RBC) [Mass/Vol] 32.9 g/dL Normal 32-36 [facility] Comment on above: Performed By: #### C BCA, CMP, 69962-7, 35094-2 #### [facility] ([id number]) [address] [place] [place] [address] MCV (RBC) [Entitic vol] 98 fL Normal 80-100 [facility] Comment on above: Performed By: #### C BCA, CMP, 21121-2, 61823-3 #### [facility] ([id number]) [address] [place] [place] [address] Monocytes (Bld) [#/Vol] 0.7 10*3/uL Normal 0-0.9 [facility] Comment on above: Performed By: #### C BCA, CMP, 96639-1, 63343-2 #### [facility] ([id number]) [address] [place] [address] Monocytes/100 WBC (Bld) 4.8 % Normal [facility] Comment on above: Performed By: #### C BCA, CMP, 05292-3, 99866-5 #### [facility] ([id number]) [address] [place] [address] MYELOCYTE 1.9 % Normal [facility] Comment on above: Performed By: #### C BCA, CMP, 06249-4, 47416-9 #### [facility] ([id number]) [address] [place] [address] Neutrophils (Bld) [#/Vol] 12.0 10*3/uL High 1.5-6.6 [facility] Comment on above: Performed By: #### C BCA, CMP, 76053-3, 31183-5 #### [facility] ([id number]) [address] [place] [address] Platelet mean volume (Bld) [Entitic vol] 8.2 fL Normal 7-12 [facility] Comment on above: Performed By: #### C BCA, CMP, 89900-1, 62844-9 #### [facility] ([id number]) [address] [place] [address] Platelets (Bld) [#/Vol] 291 10*3/uL Normal 150-450 [facility] Comment on above: Performed By: #### C BCA, CMP, 85710-1, 29345-6 #### [facility] ([id number]) [address] [place] [place] [address] RBC COUNT 4.00 X10E12/L Normal 3.80-5.20 [facility] Comment on above: Performed By: #### C BCA, CMP, 68596-7, 28229-6 #### [facility] ([id number]) [address] [place] [address] RBC morphology finding Nom (Bld) NORMAL Normal [facility] Comment on above: Performed By: #### C BCA, CMP, 73856-8, 36730-7 #### [facility] ([id number]) [address] [place] [address] SEG NEUTROPHIL 85.6 % Normal [facility] Comment on above: Performed By: #### C BCA, CMP, 95847-6, 25450-1 #### [facility] ([id number]) [address] [place] [address] WBC (Bld) [#/Vol] 13.6 10*3/uL High 4.0-11.0 [facility] Comment on above: Performed By: #### C BCA, CMP, 75412-9, 70955-7 #### [facility] ([id number]) [address] [place] [address] COMPREHENSIVE METABOLIC PANE Keenan 08-13-2023 Albumin [Mass/Vol] 2.8 g/dL Low 3.2-5.3 [facility] Comment on above: Performed By: #### C BCA, CMP, , 13298-3 #### [facility] ([id number]) [address] [place] [place] [address] ALP [Catalytic activity/Vol] 50 U/L Normal 39-130 [facility] Comment on above: Performed By: #### C BCA, CMP, , 51600-4 #### [facility] ([id number]) [address] [place] [place] [address] ALT [Catalytic activity/Vol] 8 U/L Normal 0-31 [facility] Comment on above: Performed By: #### C BCA, CMP, , 88409-8 #### [facility] ([id number]) [address] [place] [place] [address] Anion gap [Moles/Vol] 11 mmol/L Normal 5-15 [facility] Comment on above: Performed By: #### C BCA, CMP, , 10994-7 #### [facility] ([id number]) [address] [place] [address] AST [Catalytic activity/Vol] 14 U/L Normal 0-41 [facility] Comment on above: Performed By: #### C BCA, CMP, , 16551-4 #### [facility] ([id number]) [address] [place] [place] [address] Bilirubin [Mass/Vol] 0.7 mg/dL Normal 0.3-1.2 [facility] Comment on above: Performed By: #### C BCA, CMP, , 56731-3 #### [facility] ([id number]) [address] [place] [place] [address] Calcium [Mass/Vol] 8.8 mg/dL Normal 8.5-10.5 [facility] Comment on above: Performed By: #### C BCA, CMP, , 00058-4 #### [facility] ([id number]) [address] [place] [address] Chloride [Moles/Vol] 104 mmol/L Normal 98-109 [facility] Comment on above: Performed By: #### C BCA, CMP, , 09727-4 #### [facility] ([id number]) [address] [place] [address] CO2 [Moles/Vol] 25 mmol/L Normal 22-32 [facility] Comment on above: Performed By: #### C BCA, CMP, , 04368-9 #### [facility] ([id number]) [address] [place] [address] Creatinine [Mass/Vol] 2.04 mg/dL High 0.40-1.00 [facility] Comment on above: Result Comment: METH OD TRACEABLE TO IDMS STANDARD Performed By: #### C ANSELMO BOYD, , #### [facility] ([id number]) [address] [place] [address] GFR/1.73 sq M.predicted among non-blacks MDRD (S/P/Bld) [Vol rate/Area] 25 mL/min/{1.73_m2} Low >59 [facility] Comment on above: Result Comment: Reported eGFR is based on the CKD-EPI 2020 equation that does not use a race coefficient. Performed By: #### C OLIVER, CMP, , #### [facility] ([id number]) [address] [place] [address] Glucose [Mass/Vol] 109 mg/dL High 65-99 [facility] Comment on above: Performed By: #### C BCA, CMP, , 59642-2 #### [facility] ([id number]) [address] [place] [address] Potassium [Moles/Vol] 4.1 mmol/L Normal 3.5-5.0 [facility] Comment on above: Performed By: #### C BCA, CMP, , 45922-5 #### [facility] ([id number]) [address] [place] [address] Protein [Mass/Vol] 7.9 g/dL Normal 6.0-8.0 [facility] Comment on above: Performed By: #### C BCA, CMP, 74625-7, 48628-5 #### [facility] ([id number]) [address] [facility] [place] [address] Sodium [Moles/Vol] 140 mmol/L Normal 134-146 [facility] Comment on above: Performed By: #### C BCA, CMP, 81506-9, 79163-8 #### [facility] ([id number]) [address] [facility] [place] [address] Urea nitrogen [Mass/Vol] 38 mg/dL High 5-27 [facility] Comment on above: Performed By: #### C OLIVER, CMP, 57856-3, 51915-6 #### [facility] ([id number]) [address] [facility] [place] [address] CT BRAIN WO CONTon CT BRAIN WO [...] Galo MD on 08/13/2023 10:38 AM Normal [facility] MAGNESIUMon 08-13-2023 Magnesium [Mass/Vol] 2.4 mg/dL Normal 1.8-2.6 [facility] Comment on above: Performed By: #### C [facility], 93119-1, 65620-5 #### [facility] ([id number]) [address] [facility] [place] [address] SARS/FLU A+B/RSV by NAAT/Mol ecularon 08-13-2023 SARS/FLU [...] operators who are performing tests using either [employer] DX or quietrevolution systems and is limited to laboratories that [...] repeat. Fact Sheet for Healthcare Providers: https://www.fda.gov/media/ 923352/download Fact Sheet for Patients: https://www.fda.gov/media/ 808609/download Normal [facility] Comment on above: Performed By: #### C MP, THYR, 2284-03, 2132-04, 86434-6 #### [facility] ([id number]) [address], [address] [place] [address] TROPONIN Ion 08-13-2023 Troponin I.cardiac [Mass/Vol] ng/mL Normal 0.00-0.04 [facility] Comment on above: Performed By: #### C BCA, CMP, 09316-8, 79949-5 #### [facility] ([id number]) [address] [facility] [place] [address] URINE CULTUREon 08-13-2023 Bacteria identified Cx Nom (U) CULTURE RESULTS <10,000 ORGANISMS/ML NORMAL URO GENITAL GERARD Normal [facility] Comment on above: Performed By: #### C MP, THYR, 2284-03, 2132-04, 66173-2 #### [facility] ([id number]) [address], [address] [place] [address] URN MACROSCOPIC NURon 2022 BILIRUBIN ORACIO Negative Normal NEG [facility] Comment on above: Performed By: #### C MP, THYR, 2284-03, 2132-04, 35707-1 #### [facility] ([id number]) [address], [address] [place] [address] BLOOD/HGB ORACIO Trace Abnormal NEG [facility] Comment on above: Performed By: #### C MP, THYR, 2284-03, 2132-04, 01875-0 #### [facility] ([id number]) [address], [address] [place] [address] GLUCOSE ORACIO Negative Normal NEG [facility] Comment on above: Performed By: #### C MP, THYR, 2284-03, 2132-04, 66696-7 #### [facility] ([id number]) [address], [address] [place] [address] KETONES ORACIO Trace Abnormal NEG [facility] Comment on above: Performed By: #### C MP, THYR, 2284-03, 2132-04, 67614-4 #### [facility] ([id number]) [address], [address] [place] [address] LEUKOCYTE ESTERASE ORACIO Negative Normal NEG [facility] Comment on above: Performed By: #### C MP, THYR, 2284-03, 2132-04, 51076-2 #### [facility] ([id number]) [address], [address] [place] [address] NITRITE ORACIO Negative Normal NEG [facility] Comment on above: Performed By: #### C MP, THYR, 2284-03, 2132-04, 72410-5 #### [facility] ([id number]) [address], [address] [place] [address] PH ORACIO 5.0 Normal 5.0-8.5 [facility] Comment on above: Performed By: #### C MP, THYR, 2284-03, 2132-04, 50347-0 #### [facility] ([id number]) [address], [address] [place] [address] PROTEIN ORACIO 100 mg/dL Abnormal NEG [facility] Comment on above: Performed By: #### C MP, THYR, 2284-03, 2132-04, 21000-8 #### [facility] ([id number]) [address], [address] [place] [address] SPECIFIC GRAVITY ORACIO 1.020 Normal 1.003-1.035 [facility] Comment on above: Performed By: #### C MP, THYR, 2284-03, 2132-04, 06928-6 #### [facility] ([id number]) [address], [address] [place] [address] UROBILINOGEN ORACIO 0.2 eu/dL Normal <1.1 [facility] Comment on above: Performed By: #### C MP, THYR, 228-8, 9, 27817-7 #### [facility] ([id number]) [address], [facility] [address] [place] [address] Urine collection deviceon ER EXTRA URINES ER EXTRA URINE ORDER IN PROCESS Normal [facility] Comment on above: Performed By: #### C MP, THYR, 2284-03, 2132-04, 27940-1 #### [facility] ([id number]) [address], [address] [address] XR CHEST 1 VWon 08-13-2023 XR CHEST 1 VW XR CHEST 1 VW XR CHEST 1 VW: 08/13/2023 10:35 AM Clinical: Syncope. Weakness. Upright portable chest obtained. No comparison Heart size is normal. No acute consolidation, large effusion, or pneumothorax. IMPRESSION: * No acute disease to limits of this portable exam. Finalized by Tyrell Galo MD on 08/13/2023 10:41 AM Normal [facility] COMPREHENSIVE METABOLIC PANE Keenan 08-12-2023 Albumin [Mass/Vol] 3.0 g/dL Low 3.2-5.3 [facility] Comment on above: Performed By: #### C MP, THYR, 2284-03, 2132-04, 51559-3 #### [facility] ([id number]) [address], [facility] [address] [place] [address] ALP [Catalytic activity/Vol] 51 U/L Normal 39-130 [facility] Comment on above: Performed By: #### C MP, THYR, 2284-8, 9, 67256-3 #### [facility] ([id number]) [address], [address] [place] [address] ALT [Catalytic activity/Vol] 5 U/L Normal 0-31 [facility] Comment on above: Performed By: #### C MP, THYR, 2284-03, 2132-04, 08531-4 #### [facility] ([id number]) [address], [address] [place] [address] Anion gap [Moles/Vol] 12 mmol/L Normal 5-15 [facility] Comment on above: Performed By: #### C MP, THYR, 2284-03, 2132-04, 50325-2 #### [facility] ([id number]) [address], [address] [place] [address] AST [Catalytic activity/Vol] 8 U/L Normal 0-41 [facility] Comment on above: Performed By: #### C MP, THYR, 2284-03, 2132-04, 46902-4 #### [facility] ([id number]) [address], [address] [place] [address] Bilirubin [Mass/Vol] 0.5 mg/dL Normal 0.3-1.2 [facility] Comment on above: Performed By: #### C MP, THYR, 2284-03, 2132-04, 28688-5 #### [facility] ([id number]) [address], [address] [place] [address] Calcium [Mass/Vol] 8.8 mg/dL Normal 8.5-10.5 [facility] Comment on above: Performed By: #### C MP, THYR, 2284-03, 2132-04, 59367-8 #### [facility] ([id number]) [address], [address] [place] [address] Chloride [Moles/Vol] 101 mmol/L Normal 98-109 [facility] Comment on above: Performed By: #### C MP, THYR, 2284-03, 2132-04, 11195-4 #### [facility] ([id number]) [address], [address] [place] [address] CO2 [Moles/Vol] 26 mmol/L Normal 22-32 [facility] Comment on above: Performed By: #### C MP, THYR, 2284-03, 2132-04, 03692-4 #### [facility] ([id number]) [address], [address] [place] [address] Creatinine [Mass/Vol] 1.93 mg/dL High 0.40-1.00 [facility] Comment on above: Result Comment: METH OD TRACEABLE TO IDMS STANDARD Performed By: #### C BARTOLO, THYR, 2284-03, 2132-04, 41974-3 #### [facility] ([id number]) [address], [address] [place] [address] GFR/1.73 sq M.predicted among non-blacks MDRD (S/P/Bld) [Vol rate/Area] 27 mL/min/{1.73_m2} Low >59 [facility] Comment on above: Result Comment: Reported eGFR is based on the CKD-EPI 2020 equation that does not use a race coefficient. Performed By: #### C BARTOLO, THYR, 2284-03, 2132-04, 17427-6 #### [facility] ([id number]) [address], [address] [place] [address] Glucose [Mass/Vol] 98 mg/dL Normal 65-99 [facility] Comment on above: Performed By: #### C MP, THYR, 2284-03, 2132-04, 98535-9 #### [facility] ([id number]) [address], [address] [place] [address] Potassium [Moles/Vol] 4.0 mmol/L Normal 3.5-5.0 [facility] Comment on above: Performed By: #### C MP, THYR, 2284-03, 2132-04, 58148-9 #### [facility] ([id number]) [address], [address] [place] [address] Protein [Mass/Vol] 7.1 g/dL Normal 6.0-8.0 [facility] Comment on above: Performed By: #### C MP, THYR, 2284-03, 2132-04, 96851-2 #### [facility] ([id number]) [address] [place] [address] Sodium [Moles/Vol] 139 mmol/L Normal 134-146 [facility] Comment on above: Performed By: #### C MP, THYR, 2284-03, 2132-04, 47611-2 #### [facility] ([id number]) [address], [address] [place] [address] Urea nitrogen [Mass/Vol] 32 mg/dL High 5-27 [facility] Comment on above: Performed By: #### C MP, THYR, 2284-03, 2132-04, 95988-9 #### [facility] ([id number]) [address] [place] [address] Folate [Mass/Vol]on 08-12-20 FOLIC ACID 10.0 ng/mL Normal >5.8 [facility] Comment on above: Result Comment: NEW REFERENCE RANGE Performed By: #### C MP, THYR, 2284-03, 2132-04, 66162-4 #### [facility] ([id number]) [address], [address] [place] [address] THYROID PROFILEon 08-12-2023 Free T4 [Mass/Vol] 1.78 ng/dL High 0.61-1.60 [facility] Comment on above: Performed By: #### C MP, THYR, 2284-03, 2132-04, 44894-6 #### [facility] ([id number]) [address], [address] [place] [address] TSH 0.22 uIU/mL Low 0.49-4.67 [facility] Comment on above: Performed By: #### C BARTOLO, THYR, 2283-, 2132-04, 65112-8 #### [facility] ([id number]) [address], [address] [place] [address] VITAMIN B12on 08-12-2023 Cobalamin (Vitamin B12) [Mass/Vol] 538 pg/mL Normal 180-914 [facility] Comment on above: Performed By: #### C BARTOLO, THYR, 2284-03, 2132-04, 83045-1 #### [facility] ([id number]) [address], [address] [place] [address] Vitamin D+Metabolites [Mass/ Vol]on 08-12-2023 VITAMIN D 25 HYD TOT 17.6 ng/mL Low 30-100 [facility] Comment on above: Result Comment: Vitamin D status 25 [place] Vitamin D Deficiency <20 ng/mL Insufficiency 20-29 ng/mL Sufficiency 30-100 ng/mL Toxicity >100 ng/mL NOTE: A pediatric reference range has not been established by the cardiac care nurse of this kit. The [place] [employer] recommends a Vitamin D level of = or >20ng/mL in infants and children. Performed By: #### C BARTOLO, THYR, 2284-03, 2132-04, 08905-1 #### [facility] ([id number]) [address], [address] [place] [address] Basic Metab w/rfx MGon 08-06 Anion gap [Moles/Vol] 7 mmol/L Low 9-17 [facility] Comment on above: Performed By: #### P E #### [facility] [address] [place] [address] Livestock Handler: Ramon Hussein MD Calcium [Mass/Vol] 8.4 mg/dL Low 8.6-10.4 [facility] Comment on above: Performed By: #### P E #### [address] [address] Livestock Handler: Ramon Hussein MD Chloride [Moles/Vol] 103 mmol/L Normal 98-107 [facility] Comment on above: Performed By: #### P E #### [address] [address] Livestock Handler: Ramon Hussein MD CO2 [Moles/Vol] 24 mmol/L Normal 20-31 [facility] Comment on above: Performed By: #### P E #### [address] [address] Livestock Handler: Ramon Hussein MD Creatinine [Mass/Vol] 1.8 mg/dL High 0.5-0.9 [facility] Comment on above: Performed By: #### P E #### [address] [address] Livestock Handler: Rmaon Hussein MD GFR/1.73 sq M.predicted among non-blacks MDRD (S/P/Bld) [Vol rate/Area] 29 mL/min/{1.73_m2} Low >60 [facility] Comment on above: Result Comment: These results [...] secretion. Performed By: #### P E #### [address] [address] Livestock Handler: Ramon Hussein MD Glucose [Mass/Vol] 88 mg/dL Normal 70-99 [facility] Comment on above: Performed By: #### P E #### [address] [place] [address] Livestock Handler: Ramon Hussein MD Potassium [Moles/Vol] 4.4 mmol/L Normal 3.7-5.3 [facility] Comment on above: Performed By: #### P E #### [address] [place] [address] Livestock Handler: Ramon Hussein MD Sodium [Moles/Vol] 134 mmol/L Low 135-144 [facility] Comment on above: Performed By: #### P E #### [facility] [place] [address] Livestock Handler: Ramon Hussein MD Urea nitrogen [Mass/Vol] 22 mg/dL Normal 8-23 [facility] Comment on above: Performed By: #### P E #### [facility] [address] [place] [address] Livestock Handler: Ramon Hussein MD Basic Metabolic Panel w/ Ref kya to MGon 08-06-2023 Anion gap [Moles/Vol] 7 mmol/L Low 9 - 17 mmol/L [facility] Calcium [Mass/Vol] 8.4 mg/dL Low 8.6 - 10. 4 mg/dL [facility] Chloride [Moles/Vol] 103 mmol/L 98 - 107 mmol/L [facility] CO2 [Moles/Vol] 24 mmol/L 20 - 31 mmol/L [facility] Creatinine [Mass/Vol] 1.8 mg/dL High 0.5 - 0.9 mg/dL [facility] GFR/1.73 sq M.predicted MDRD (S/P/Bld) [Vol rate/Area] [...] [Mass/Vol] 88 mg/dL 70 - 99 mg/dL [facility] Interpretation and review of laboratory results Abnormal [facility] Potassium [Moles/Vol] 4.4 mmol/L 3.7 - 5.3 mmol/L [facility] Sodium [Moles/Vol] 134 mmol/L Low 135 - 144 mmol/L [facility] Urea nitrogen [Mass/Vol] 22 mg/dL 8 - 23 mg/dL [facility] CBC with Auto Differentialon 08-06-2023 Basophils (Bld) [#/Vol] 0.05 10*3/uL [facility] Basophils/100 WBC (Bld) 1 % 0 - 2 % [facility] Eosinophils (Bld) [#/Vol] 0.26 10*3/uL [facility] Eosinophils/100 WBC (Bld) 3 % 1 - 4 % [facility] Erythrocyte distribution width (RBC) [Ratio] 14.6 % High 11.8 - 14.4 % [facility] Hematocrit (Bld) [Volume fraction] 36.9 % 36.3 - 47.1 % [facility] Hemoglobin (Bld) [Mass/Vol] 11.6 g/dL Low 11.9 - 15.1 g/dL [facility] Immature granulocytes (Bld) [#/Vol] 0.14 10*3/uL [facility] Immature granulocytes/100 WBC (Bld) 2 % High 0 [facility] Interpretation and review of laboratory results Abnormal [facility] Lymphocytes/100 WBC (Bld) 11 % Low 24 - 43 % [facility] Lymphocytes/100 WBC (Bld) 1.00 % Low [facility] MCH (RBC) [Entitic mass] 31.8 pg 25.2 - 33.5 pg [facility] MCHC (RBC) [Mass/Vol] 31.4 g/dL 28.4 - 34.8 g/dL [facility] MCV (RBC) [Entitic vol] 101.1 fL 82.6 - 102.9 fL [facility] Monocytes/100 WBC (Bld) 16 % High 3 - 12 % [facility] Monocytes/100 WBC (Bld) 1.46 % High [facility] Neutrophils/100 WBC (Bld) 67 % High 36 - 65 % [facility] Nucleated RBC/100 WBC (Bld) [Ratio] 0.0 % 0.0 per 100 WBC [facility] Platelet mean volume (Bld) [Entitic vol] 9.5 fL 8.1 - 13.5 fL [facility] Platelets (Bld) [#/Vol] 255 10*3/uL [facility] RBC (Bld) [#/Vol] 3.65 10*6/uL Low 3.95 - 5.1 1 m/uL [facility] RBC (Bld) [#/Vol] ANISOCYTOSIS PRESENT [facility] Segmented neutrophils/100 WBC (Bld) 5.97 % [facility] WBC other (Bld) [#/Vol] 8.9 [facility] CBC with Diffon 08-06-2023 Abs. Basophil 0.05 k/uL Normal 0.00-0.20 [facility] Comment on above: Performed By: #### P E #### [address] [facility] [place] [id number] Livestock Handler: Ramon Hussein MD Abs.Imm.Granulocyt e 0.14 k/uL Normal 0.00-0.30 [facility] Comment on above: Performed By: #### P E #### [address] [facility] [place] [id number] Livestock Handler: Ramon Hussein MD Abs.Neutrophil (Seg) 5.97 k/uL Normal 1.50-8.10 [facility] Comment on above: Performed By: #### P E #### [address] [address] Livestock Handler: Ramon Hussein MD Basophils/100 WBC (Bld) 1 % Normal 0-2 [facility] Comment on above: Performed By: #### P E #### [address] [address] Livestock Handler: Ramon Hussein MD Eosinophils (Bld) [#/Vol] 0.26 10*3/uL Normal 0.00-0.44 [facility] Comment on above: Performed By: #### P E #### [address] [address] Livestock Handler: Ramon Hussein MD Eosinophils/100 WBC (Bld) 3 % Normal 1-4 [facility] Comment on above: Performed By: #### P E #### [address] [address] Livestock Handler: Ramon Hussein MD Erythrocyte distribution width (RBC) [Ratio] 14.6 % High 11.8-14.4 [facility] Comment on above: Performed By: #### P E #### [address] [address] Livestock Handler: Ramon Hussein MD Hematocrit (Bld) [Volume fraction] 36.9 % Normal 36.3-47.1 [facility] Comment on above: Performed By: #### P E #### [address] [address] Livestock Handler: Ramon Hussein MD Hemoglobin (Bld) [Mass/Vol] 11.6 g/dL Low 11.9-15.1 [facility] Comment on above: Performed By: #### P E #### [address] [id number] Livestock Handler: Ramon Hussein MD Immature granulocytes/100 WBC (Bld) 2 % High 0 [facility] Comment on above: Performed By: #### P E #### [address] [address] Livestock Handler: Ramon Hussein MD Lymphocytes (Bld) [#/Vol] 1.00 10*3/uL Low 1.10-3.70 [facility] Comment on above: Performed By: #### P E #### [address] [address] Livestock Handler: Ramon Hussein MD Lymphocytes/100 WBC (Bld) 11 % Low 24-43 [facility] Comment on above: Performed By: #### P E #### [address] [address] Livestock Handler: Ramon Hussein MD MCH (RBC) [Entitic mass] 31.8 pg Normal 25.2-33.5 [facility] Comment on above: Performed By: #### P E #### [place] [address] Livestock Handler: Ramon Hussein MD MCHC (RBC) [Mass/Vol] 31.4 g/dL Normal 28.4-34.8 [facility] Comment on above: Performed By: #### P E #### [place] [address] Livestock Handler: Ramon Hussein MD MCV (RBC) [Entitic vol] 101.1 fL Normal 82.6-102.9 [facility] Comment on above: Performed By: #### P E #### [address] [address] Livestock Handler: Ramon Hussein MD Monocytes (Bld) [#/Vol] 1.46 10*3/uL High 0.10-1.20 [facility] Comment on above: Performed By: #### P E #### [address] [address] Livestock Handler: Ramon Hussein MD Monocytes/100 WBC (Bld) 16 % High 3-12 [facility] Comment on above: Performed By: #### P E #### [address] [address] Livestock Handler: Ramon Hussein MD Neutrophil (Seg) 67 % High 36-65 [facility] Comment on above: Performed By: #### P E #### [address] [address] Livestock Handler: Ramon Hussein MD NRBC Automated 0.0 per 100 WBC Normal 0.0 [facility] Comment on above: Performed By: #### P E #### [address] [address] Livestock Handler: Ramon Hussein MD Platelet mean volume (Bld) [Entitic vol] 9.5 fL Normal 8.1-13.5 [facility] Comment on above: Performed By: #### P E #### [address] [address] Livestock Handler: Ramon Hussein MD Platelets (Bld) [#/Vol] 255 10*3/uL Normal 138-453 [facility] Comment on above: Performed By: #### P E #### [address] [address] Livestock Handler: Ramon Hussein MD RBC (Bld) [#/Vol] 3.65 10*6/uL Low 3.95-5.11 [facility] Comment on above: Performed By: #### P E #### [address] [address] Livestock Handler: Ramon Hussein MD RBC morphology finding Nom (Bld) ANISOCYTOSIS PRESENT Normal [facility] Comment on above: Performed By: #### P E #### [address] [address] Livestock Handler: Ramon Hussein MD WBC (Bld) [#/Vol] 8.9 10*3/uL Normal 3.5-11.3 [facility] Comment on above: Performed By: #### P E #### [address] [address] Livestock Handler: Ramon Hussein MD Basic Metab w/rfx MGon 08-05 Anion gap [Moles/Vol] 12 mmol/L Normal 9-17 [facility] Comment on above: Performed By: #### C DP, BMPX #### [address] [address] Livestock Handler: Ramon Hussein MD Calcium [Mass/Vol] 8.2 mg/dL Low 8.6-10.4 [facility] Comment on above: Performed By: #### C DP, BMPX #### [address] [address] Livestock Handler: Ramon Hussein MD Chloride [Moles/Vol] 102 mmol/L Normal 98-107 [facility] Comment on above: Performed By: #### C DP, BMPX #### [facility] [employer] [address] [place] [address] Livestock Handler: Ramon Hussein MD CO2 [Moles/Vol] 22 mmol/L Normal 20-31 [facility] Comment on above: Performed By: #### C DP, BMPX #### [facility] [employer] [address] [place] [address] Livestock Handler: Ramon Hussein MD Creatinine [Mass/Vol] 1.7 mg/dL High 0.5-0.9 [facility] Comment on above: Performed By: #### C DP, BMPX #### [address] [address] Livestock Handler: Ramon Hussein MD GFR/1.73 sq M.predicted among non-blacks MDRD (S/P/Bld) [Vol rate/Area] 31 mL/min/{1.73_m2} Low >60 [facility] Comment on above: Result Comment: These results [...] Performed By: #### C DP, BMPX #### [facility] [employer] [address] [place] [address] Livestock Handler: Ramon Hussein MD Glucose [Mass/Vol] 85 mg/dL Normal 70-99 [facility] Comment on above: Performed By: #### C DP, BMPX #### [facility] [employer] [address] [place] [address] Livestock Handler: Ramon Hussein MD Potassium [Moles/Vol] 4.3 mmol/L Normal 3.7-5.3 [facility] Comment on above: Performed By: #### C DP, BMPX #### [facility] [address] [place] [address] Livestock Handler: Ramon Hussein MD Sodium [Moles/Vol] 136 mmol/L Normal 135-144 [facility] Comment on above: Performed By: #### C DP, BMPX #### [facility] [address] [place] [address] Livestock Handler: Ramon Hussein MD Urea nitrogen [Mass/Vol] 23 mg/dL Normal 8-23 [facility] Comment on above: Performed By: #### C DP, BMPX #### [facility] [address] [place] [address] Livestock Handler: Ramon Hussein MD Basic Metabolic Panel w/ Ref kya to MGon 08-05-2023 Anion gap [Moles/Vol] 12 mmol/L 9 - 17 mmol/L [facility] Calcium [Mass/Vol] 8.2 mg/dL Low 8.6 - 10. 4 mg/dL [facility] Chloride [Moles/Vol] 102 mmol/L 98 - 107 mmol/L [facility] CO2 [Moles/Vol] 22 mmol/L 20 - 31 mmol/L [facility] Creatinine [Mass/Vol] 1.7 mg/dL High 0.5 - 0.9 mg/dL [facility] GFR/1.73 sq M.predicted MDRD (S/P/Bld) [Vol rate/Area] 31 mL/min/{1.73_m2} Low - PINF [facility] Comment on above: These results are not [...] [Mass/Vol] 85 mg/dL 70 - 99 mg/dL [facility] Interpretation and review of laboratory results Abnormal [facility] Potassium [Moles/Vol] 4.3 mmol/L 3.7 - 5.3 mmol/L [facility] Sodium [Moles/Vol] 136 mmol/L 135 - 144 mmol/L [facility] Urea nitrogen [Mass/Vol] 23 mg/dL 8 - 23 mg/dL [facility] [employer] CBC with Auto Differentialon 08-05-2023 Basophils (Bld) [#/Vol] 0.00 10*3/uL [facility] Basophils/100 WBC (Bld) 0 % 0 - 2 % [facility] Eosinophils (Bld) [#/Vol] 0.00 10*3/uL [facility] Eosinophils/100 WBC (Bld) 0 % Low 1 - 4 % [facility] Erythrocyte distribution width (RBC) [Ratio] 14.4 % 11.8 - 14.4 % [facility] Hematocrit (Bld) [Volume fraction] 35.5 % Low 36.3 - 47.1 % [facility] Hemoglobin (Bld) [Mass/Vol] 11.0 g/dL Low 11.9 - 15.1 g/dL [facility] Immature granulocytes (Bld) [#/Vol] 0.10 10*3/uL [facility] Immature granulocytes/100 WBC (Bld) 1 % High 0 [facility] Interpretation and review of laboratory results Abnormal [facility] Lymphocytes/100 WBC (Bld) 10 % Low 24 - 44 % [facility] Lymphocytes/100 WBC (Bld) 1.04 % [facility] MCH (RBC) [Entitic mass] 31.9 pg 25.2 - 33.5 pg [facility] MCHC (RBC) [Mass/Vol] 31.0 g/dL 28.4 - 34.8 g/dL [facility] MCV (RBC) [Entitic vol] 102.9 fL 82.6 - 102.9 fL [facility] Monocytes/100 WBC (Bld) 15 % High 1 - 7 % [facility] Monocytes/100 WBC (Bld) 1.56 % High [facility] Morphology Jose Cruz (Bld) [Interp] Normal [facility] Neutrophils/100 WBC (Bld) 74 % High 36 - 66 % [facility] Nucleated RBC/100 WBC (Bld) [Ratio] 0.0 % 0.0 per 100 WBC [facility] Platelet mean volume (Bld) [Entitic vol] 9.8 fL 8.1 - 13.5 fL [facility] Platelets (Bld) [#/Vol] 256 10*3/uL [facility] RBC (Bld) [#/Vol] 3.45 10*6/uL Low 3.95 - 5.1 1 m/uL [facility] Segmented neutrophils/100 WBC (Bld) 7.70 % [facility] WBC other (Bld) [#/Vol] 10.4 [facility] CBC with Diffon 08-05-2023 Abs. Basophil 0.00 k/uL Normal 0.0-0.2 [facility] Comment on above: Performed By: #### C DP, BMPX #### [facility] [address] [place] [address] Livestock Handler: Ramon Hussein MD Abs.Imm.Granulocyt e 0.10 k/uL Normal 0.00-0.30 [facility] Comment on above: Performed By: #### C DP, BMPX #### [facility] [employer] [address] [place] [address] Livestock Handler: Ramon Hussein MD Abs.Neutrophil (Seg) 7.70 k/uL Normal 1.8-7.7 [facility] Comment on above: Performed By: #### C DP, BMPX #### [facility] [employer] [address] [place] [address] Livestock Handler: Ramon Hussein MD Basophils/100 WBC (Bld) 0 % Normal 0-2 [facility] Comment on above: Performed By: #### C DP, BMPX #### [facility] [employer] [address] [place] [address] Livestock Handler: Ramon Hussein MD Eosinophils (Bld) [#/Vol] 0.00 10*3/uL Normal 0.0-0.4 [facility] Comment on above: Performed By: #### C DP, BMPX #### [facility] [address] [place] [address] Livestock Handler: Ramon Hussein MD Eosinophils/100 WBC (Bld) 0 % Low 1-4 [facility] Comment on above: Performed By: #### C DP, BMPX #### [address] [address] Livestock Handler: Ramon Hussein MD Immature granulocytes/100 WBC (Bld) 1 % High 0 [facility] Comment on above: Performed By: #### C DP, BMPX #### [address] [address] Livestock Handler: Ramon Hussein MD Lymphocytes (Bld) [#/Vol] 1.04 10*3/uL Normal 1.0-4.8 [facility] Comment on above: Performed By: #### C DP, BMPX #### [address] [address] Livestock Handler: Ramon Hussein MD Lymphocytes/100 WBC (Bld) 10 % Low 24-44 [facility] Comment on above: Performed By: #### C DP, BMPX #### [address] [address] Livestock Handler: Ramon Hussein MD Monocytes (Bld) [#/Vol] 1.56 10*3/uL High 0.1-0.8 [facility] Comment on above: Performed By: #### C DP, BMPX #### [address] [address] Livestock Handler: Ramon Hussein MD Monocytes/100 WBC (Bld) 15 % High 1-7 [facility] Comment on above: Performed By: #### C DP, BMPX #### [address] [address] Livestock Handler: Ramon Hussein MD Morphology Jose Cruz (Bld) [Interp] Normal Normal [facility] Comment on above: Performed By: #### C DP, BMPX #### [address] [address] Livestock Handler: Ramon Hussein MD Neutrophil (Seg) 74 % High 36-66 [facility] Comment on above: Performed By: #### C DP, BMPX #### [address] [address] Livestock Handler: Ramon Hussein MD Erythrocyte distribution width (RBC) [Ratio] 14.4 % Normal 11.8-14.4 [facility] Comment on above: Performed By: #### C DP, BMPX #### [address] [address] Livestock Handler: Ramon Hussein MD Hematocrit (Bld) [Volume fraction] 35.5 % Low 36.3-47.1 [facility] Comment on above: Performed By: #### C DP, BMPX #### [address] [address] Livestock Handler: Ramon Hussein MD Hemoglobin (Bld) [Mass/Vol] 11.0 g/dL Low 11.9-15.1 [facility] Comment on above: Performed By: #### C DP, BMPX #### [address] [address] Livestock Handler: Ramon Hussein MD MCH (RBC) [Entitic mass] 31.9 pg Normal 25.2-33.5 [facility] Comment on above: Performed By: #### C DP, BMPX #### [facility] [employer] [address] [place] [address] Livestock Handler: Ramon Hussein MD MCHC (RBC) [Mass/Vol] 31.0 g/dL Normal 28.4-34.8 [facility] Comment on above: Performed By: #### C DP, BMPX #### [facility] [employer] [address] [place] [address] Livestock Handler: Ramon Hussein MD MCV (RBC) [Entitic vol] 102.9 fL Normal 82.6-102.9 [facility] Comment on above: Performed By: #### C DP, BMPX #### [address] [address] Livestock Handler: Ramon Hussein MD NRBC Automated 0.0 per 100 WBC Normal 0.0 [facility] Comment on above: Performed By: #### C DP, BMPX #### [address] [address] Livestock Handler: Ramon Hussein MD Platelet mean volume (Bld) [Entitic vol] 9.8 fL Normal 8.1-13.5 [facility] Comment on above: Performed By: #### C DP, BMPX #### [address] [address] Livestock Handler: Ramon Hussein MD Platelets (Bld) [#/Vol] 256 10*3/uL Normal 138-453 [facility] Comment on above: Performed By: #### C DP, BMPX #### [address] [address] Livestock Handler: Ramon Hussein MD RBC (Bld) [#/Vol] 3.45 10*6/uL Low 3.95-5.11 [facility] Comment on above: Performed By: #### C DP, BMPX #### [address] [address] Livestock Handler: Ramon Hussein MD WBC (Bld) [#/Vol] 10.4 10*3/uL Normal 3.5-11.3 [facility] Comment on above: Performed By: #### C DP, BMPX #### [address] [address] Livestock Handler: Ramon Hussein MD MR Brain WO and [...] Small cavernomas are a less likely consideration. [facility] EXAMINATION: MRI OF THE BRAIN WITHOUT [...] The soft tissues demonstrate no acute abnormality. [facility] Nathaneal Farrar MD - 08/05/2023 EXAMINATION: MRI OF [...] Small cavernomas are a less likely consideration. [facility] Radiology Study observation (narrative) [facility] MR Brain WO and W contrast I VOrdered By: Nathanael Farrar on 08-05-2023 [facility] Work Phone: MRI BRAIN W WO CONTRASTon [...] Nathanael Farrar MD 08/05/23 Final result Normal [facility] Valproic Acid Level, Total a nd Freeon 08-05-2023 Interpretation and review of laboratory results Abnormal [facility] Valproate [Mass/Vol] 15 ug/mL Low 50 - 125 ug/mL [facility] Valproate Free [Mass/Vol] 2.0 ug/mL Low 7.0 - 23.0 ug/mL [facility] Valproate Free/Total valproate [Mass fraction] 13.3 % 5.0 - 18.4 % [facility] Valproic Acid,Fr+Toton 08-05 Valproic Acid, %Free 13.3 % Normal 5.0-18.4 [facility] Comment on above: Performed By: #### C QUOC PEACE #### [facility] [address] [place] [address] Livestock Handler: Ramon Hussein MD Valproic Acid, Free 2.0 ug/mL Low 7.0-23.0 [facility] Comment on above: Performed By: #### C QUOC PEACE #### [facility] [address] [place] [address] Livestock Handler: Ramon Hussein MD Valproic Acid 15 ug/mL Low 50-125 [facility] Comment on above: Performed By: #### C DP, BMP #### [facility] [employer] [address] [place] [address] Livestock Handler: Ramon Hussein MD Basic Metab w/rfx MGon 08-04 Anion gap [Moles/Vol] 11 mmol/L Normal 9-17 [facility] Comment on above: Performed By: #### C DP, BMP #### [facility] [address] [place] [address] Livestock Handler: Ramon Hussein MD Calcium [Mass/Vol] 8.4 mg/dL Low 8.6-10.4 [facility] Comment on above: Performed By: #### C DP, BMP #### [facility] [address] [place] [address] Livestock Handler: Ramon Hussein MD Chloride [Moles/Vol] 103 mmol/L Normal 98-107 [facility] Comment on above: Performed By: #### C DP, BMP #### [facility] [address] [place] [address] Livestock Handler: Ramon Hussein MD CO2 [Moles/Vol] 24 mmol/L Normal 20-31 [facility] Comment on above: Performed By: #### C DP, BMP #### [facility] [address] [place] [address] Livestock Handler: Ramon Hussein MD Creatinine [Mass/Vol] 1.6 mg/dL High 0.5-0.9 [facility] Comment on above: Performed By: #### C DP, BMP #### [facility] [address] [place] [address] Livestock Handler: Ramon Hussein MD GFR/1.73 sq M.predicted among non-blacks MDRD (S/P/Bld) [Vol rate/Area] 34 mL/min/{1.73_m2} Low >60 [facility] Comment on above: Result Comment: These results [...] Performed By: #### C DP, BMP #### [facility] [employer] [address] [place] [address] Livestock Handler: Ramon Hussein MD Glucose [Mass/Vol] 94 mg/dL Normal 70-99 [facility] Comment on above: Performed By: #### C DP, BMP #### [facility] [employer] [address] [place] [address] Livestock Handler: Ramon Hussein MD Potassium [Moles/Vol] 4.0 mmol/L Normal 3.7-5.3 [facility] Comment on above: Performed By: #### C DP, BMP #### [facility] [employer] [address] [place] [address] Livestock Handler: Ramon Hussein MD Sodium [Moles/Vol] 138 mmol/L Normal 135-144 [facility] Comment on above: Performed By: #### C DP, BMP #### [facility] [address] [place] [address] Livestock Handler: Ramon Hussein MD Urea nitrogen [Mass/Vol] 23 mg/dL Normal 8-23 [facility] Comment on above: Performed By: #### C DP, BMP #### [facility] [address] [place] [address] Livestock Handler: Ramon Hussein MD Basic Metabolic Panel w/ Ref kya to MGon 08-04-2023 Anion gap [Moles/Vol] 11 mmol/L 9 - 17 mmol/L [facility] Calcium [Mass/Vol] 8.4 mg/dL Low 8.6 - 10. 4 mg/dL [facility] Chloride [Moles/Vol] 103 mmol/L 98 - 107 mmol/L [facility] CO2 [Moles/Vol] 24 mmol/L 20 - 31 mmol/L [facility] Creatinine [Mass/Vol] 1.6 mg/dL High 0.5 - 0.9 mg/dL [facility] GFR/1.73 sq M.predicted MDRD (S/P/Bld) [Vol rate/Area] 34 mL/min/{1.73_m2} Low - PINF [facility] Comment on above: These results are not [...] [Mass/Vol] 94 mg/dL 70 - 99 mg/dL [facility] Interpretation and review of laboratory results Abnormal [facility] Potassium [Moles/Vol] 4.0 mmol/L 3.7 - 5.3 mmol/L [facility] Sodium [Moles/Vol] 138 mmol/L 135 - 144 mmol/L [facility] Urea nitrogen [Mass/Vol] 23 mg/dL 8 - 23 mg/dL [facility] CBC with Auto Differentialon 08-04-2023 Basophils (Bld) [#/Vol] 0.00 10*3/uL [facility] Basophils/100 WBC (Bld) 0 % 0 - 2 % [facility] Eosinophils (Bld) [#/Vol] 0.00 10*3/uL [facility] Eosinophils/100 WBC (Bld) 0 % Low 1 - 4 % [facility] Erythrocyte distribution width (RBC) [Ratio] 14.6 % High 11.8 - 14.4 % [facility] Hematocrit (Bld) [Volume fraction] 36.2 % Low 36.3 - 47.1 % [facility] Hemoglobin (Bld) [Mass/Vol] 11.3 g/dL Low 11.9 - 15.1 g/dL [facility] Immature granulocytes (Bld) [#/Vol] 0.00 10*3/uL [facility] Immature granulocytes/100 WBC (Bld) 0 % 0 [facility] Interpretation and review of laboratory results Abnormal [facility] Lymphocytes/100 WBC (Bld) 13 % Low 24 - 44 % [facility] Lymphocytes/100 WBC (Bld) 1.42 % [facility] MCH (RBC) [Entitic mass] 32.2 pg 25.2 - 33.5 pg [facility] MCHC (RBC) [Mass/Vol] 31.2 g/dL 28.4 - 34.8 g/dL [facility] MCV (RBC) [Entitic vol] 103.1 fL High 82.6 - 102.9 fL [facility] Monocytes/100 WBC (Bld) 13 % High 1 - 7 % [facility] Monocytes/100 WBC (Bld) 1.42 % High [facility] Morphology Jose Cruz (Bld) [Interp] ANISOCYTOSIS PRESENT [facility] Morphology Jose Cruz (Bld) [Interp] MACROCYTOSIS PRESENT [facility] Neutrophils/100 WBC (Bld) 74 % High 36 - 66 % [facility] Nucleated RBC/100 WBC (Bld) [Ratio] 0.0 % 0.0 per 100 WBC [facility] Platelet mean volume (Bld) [Entitic vol] 9.6 fL 8.1 - 13.5 fL [facility] Platelets (Bld) [#/Vol] 267 10*3/uL [facility] RBC (Bld) [#/Vol] 3.51 10*6/uL Low 3.95 - 5.1 1 m/uL [facility] Segmented neutrophils/100 WBC (Bld) 8.06 % High [facility] WBC other (Bld) [#/Vol] 10.9 [facility] CBC with Diffon 08-04-2023 Abs. Basophil 0.00 k/uL Normal 0.0-0.2 [facility] Comment on above: Performed By: #### C DP, BMP #### [facility] [address] [place] [address] Livestock Handler: Ramon Hussein MD Abs.Imm.Granulocyt e 0.00 k/uL Normal 0.00-0.30 [facility] Comment on above: Performed By: #### C DP, BMP #### [facility] [employer] [address] [place] [address] Livestock Handler: Ramon Hussein MD Abs.Neutrophil (Seg) 8.06 k/uL High 1.8-7.7 [facility] Comment on above: Performed By: #### C DP, BMP #### [facility] [employer] [address] [place] [address] Livestock Handler: Ramon Hussein MD Basophils/100 WBC (Bld) 0 % Normal 0-2 [facility] Comment on above: Performed By: #### C DP, BMP #### [facility] [address] [place] [address] Livestock Handler: Ramon Hussein MD Eosinophils (Bld) [#/Vol] 0.00 10*3/uL Normal 0.0-0.4 [facility] Comment on above: Performed By: #### C DP, BMP #### [facility] [address] [place] [address] Livestock Handler: Ramon Hussein MD Eosinophils/100 WBC (Bld) 0 % Low 1-4 [facility] Comment on above: Performed By: #### C DP, BMP #### [address] [facility] [address] [place] [address] Livestock Handler: Ramon Hussein MD Immature granulocytes/100 WBC (Bld) 0 % Normal 0 [facility] Comment on above: Performed By: #### C DP, BMP #### [address] [address] Livestock Handler: Ramon Hussein MD Lymphocytes (Bld) [#/Vol] 1.42 10*3/uL Normal 1.0-4.8 [facility] Comment on above: Performed By: #### C DP, BMP #### [address] [address] Livestock Handler: Ramon Hussein MD Lymphocytes/100 WBC (Bld) 13 % Low 24-44 [facility] Comment on above: Performed By: #### C DP, BMP #### [address] [address] Livestock Handler: Ramon Hussein MD Monocytes (Bld) [#/Vol] 1.42 10*3/uL High 0.1-0.8 [facility] Comment on above: Performed By: #### C DP, BMP #### [address] [address] Livestock Handler: Ramon Hussein MD Monocytes/100 WBC (Bld) 13 % High 1-7 [facility] Comment on above: Performed By: #### C DP, BMP #### [address] [address] Livestock Handler: Ramon Hussein MD Morphology Jose Cruz (Bld) [Interp] ANISOCYTOSIS PRESENT Normal [facility] Comment on above: Result Comment: MACR OCYTOSIS PRESENT Performed By: #### C DP, BMP #### [facility] [employer] [address] [place] [address] Livestock Handler: Ramon Hussein MD Neutrophil (Seg) 74 % High 36-66 [facility] Comment on above: Performed By: #### C DP, BMP #### [address] [address] Livestock Handler: Ramon Hussein MD Erythrocyte distribution width (RBC) [Ratio] 14.6 % High 11.8-14.4 [facility] Comment on above: Performed By: #### C DP, BMP #### [address] [address] Livestock Handler: Ramon Hussein MD Hematocrit (Bld) [Volume fraction] 36.2 % Low 36.3-47.1 [facility] Comment on above: Performed By: #### C DP, BMP #### [address] [address] Livestock Handler: Ramon Hussein MD Hemoglobin (Bld) [Mass/Vol] 11.3 g/dL Low 11.9-15.1 [facility] Comment on above: Performed By: #### C DP, BMP #### [address] [address] Livestock Handler: Ramon Hussein MD MCH (RBC) [Entitic mass] 32.2 pg Normal 25.2-33.5 [facility] Comment on above: Performed By: #### C DP, BMP #### [address] [address] Livestock Handler: Ramon Hussein MD MCHC (RBC) [Mass/Vol] 31.2 g/dL Normal 28.4-34.8 [facility] Comment on above: Performed By: #### C DP, BMP #### [address] [address] Livestock Handler: Ramon Hussein MD MCV (RBC) [Entitic vol] 103.1 fL High 82.6-102.9 [facility] Comment on above: Performed By: #### C DP, BMP #### [address] [address] Livestock Handler: Ramon Hussein MD NRBC Automated 0.0 per 100 WBC Normal 0.0 [facility] Comment on above: Performed By: #### C DP, BMP #### [address] [address] Livestock Handler: Ramon Hussein MD Platelet mean volume (Bld) [Entitic vol] 9.6 fL Normal 8.1-13.5 [facility] Comment on above: Performed By: #### C DP, BMP #### [address] [address] [address] Livestock Handler: Ramon Hussein MD Platelets (Bld) [#/Vol] 267 10*3/uL Normal 138-453 [facility] Comment on above: Performed By: #### C DP, BMP #### [address] [address] Livestock Handler: Ramon Hussein MD RBC (Bld) [#/Vol] 3.51 10*6/uL Low 3.95-5.11 [facility] Comment on above: Performed By: #### C DP, BMP #### [address] [address] Livestock Handler: Ramon Hussein MD WBC (Bld) [#/Vol] 10.9 10*3/uL Normal 3.5-11.3 [facility] Comment on above: Performed By: #### C DP, BMP #### [address] [address] Livestock Handler: Ramon Hussein MD COVID-19, Rapidon 08-04-2023 SARS-CoV-2 (COVID-19) RdRp gene ESTELA+probe Ql (Resp) Not detected Not Detected [facility] Comment on above: Rapid NAAT: The specimen [...] management decisions. Fact sheet for Healthcare Providers: https://www.fda.gov/media/735862/download Fact sheet for Patients: https://www.fda.gov/media/560102/download Methodology: Isothermal Nucleic Acid Amplification Specimen Description .NASOPHARYNGEAL SWAB [facility] EEGon 08-04-2023 Carlo Lee MD 08/04/2023 2:55 [...] abnormalities were seen. CARLO LEE MD Diplomate, [place] [employer] and Neurology Diplomate, [place] Board of Clinical Neurophysiology Diplomate, [place] Board of Epilepsy [facility] EEGOrdered By: Carlo Lee on 08-04-2023 [facility] Work Phone: Keppraon 08-04-2023 KEPP 23 ug/mL Normal [facility] Comment on above: Result Comment: A reference [...] not known. Performed By: #### C , [facility] #### [address] [place] [address] Livestock Handler: Ramon Hussein MD Levetiracetam Levelon 2022 levETIRAcetam [Mass/Vol] 23 ug/mL [facility] Comment on above: A reference range for [...] known. [facility] NM LUNG VENT/PERFUSION (VQ)o n 08-04-2023 NM [...] Kulwinder Kim MD 08/04/23 Final result Normal [facility] NM Lung Ventilation and Perf usionon 08-04-2023 [...] IMPRESSION: Very low probability for pulmonary embolism. [facility] Radiology Study observation (narrative) [facility] NM Lung Ventilation and Perf usionOrdered By: Kulwinder Kim on 08-04-2023 [facility] Work Phone: PREVIOUS SPECIMENon 08-04-20 [facility] [id number] 08-04-2023 SARS-CoV-2 (COVID-19) RNA ESTELA+probe Ql (Unsp spec) Not detected Normal [facility] Comment on above: Result Comment: Rapid NAAT: [...] management decisions. Fact sheet for Healthcare Providers: https://www.fda.gov/media/407325/download Fact sheet for Patients: https://www.fda.gov/media/811185/download Methodology: Isothermal Nucleic Acid Amplification Performed By: #### C OVRB #### [address] [address] Livestock Handler: Ramon Hussein MD Specimen Rejectionon 023 Reason for rejection Unable to perform testing: Specimen quantity not sufficient. Normal [facility] Comment on above: Performed By: #### C DP, BMP #### [facility] [employer] [address] [place] [address] Livestock Handler: Ramon Hussein MD Source of sample .BLOOD [facility] Comment on above: Performed By: #### C DP, BMP #### [facility] [employer] [address] [place] [address] Livestock Handler: Ramon Hussein MD Test ordered VALPFT [facility] Comment on above: Performed By: #### C DP, BMP #### [facility] [employer] [address] [place] [address] Livestock Handler: Ramon Hussein MD Valproic Acid Level, Total a nd Freeon 08-04-2023 Interpretation and review of laboratory results Abnormal [employer] [facility] Valproate [Mass/Vol] 41 ug/mL Low 50 - 125 ug/mL [facility] Valproate Free [Mass/Vol] 11.6 ug/mL 7.0 - 23.0 ug/mL [facility] Valproate Free/Total valproate [Mass fraction] 28.3 % High 5.0 - 18.4 % [facility] Valproic Acid,Fr+Toton 08-04 Valproic Acid 41 ug/mL Low 50-125 [facility] Comment on above: Performed By: #### P E #### [facility] [employer] [address] [place] [phone] Livestock Handler: Ramon Hussein MD Valproic Acid, %Free 28.3 % High 5.0-18.4 [facility] Comment on above: Performed By: #### P E #### [facility] [address] [place], [place] [phone] Livestock Handler: Ramon Hussein MD Valproic Acid, Free 11.6 ug/mL Normal 7.0-23.0 [facility] Comment on above: Performed By: #### P E #### [facility] [place] [address] Livestock Handler: Ramon Hussein MD Brain Natri. Peptideon 08-03 Natriuretic peptide B (Bld) [Mass/Vol] 2414 pg/mL High <300 [facility] Comment on above: Result Comment: An age-independent cutoff point of 300 pg/ml has a 98% negative predictive value excluding acute heart failure. Performed By: #### C DP, BMPX #### [facility] [address] [place], [place] [phone] Livestock Handler: Ramon Hussein MD Brain Natriuretic Peptideon 08-03-2023 Natriuretic peptide B (Bld) [Mass/Vol] 2414 pg/mL High NINF - 300 pg/mL [facility] [employer] Comment on above: An age-independent cutoff point of 300 pg/ml has a 98% negative predictive value excluding acute heart failure. CBC with Auto Differentialon 08-03-2023 Basophils (Bld) [#/Vol] 0.00 10*3/uL [employer] [facility] Basophils/100 WBC (Bld) 0 % 0 - 2 % [facility] [employer] Eosinophils (Bld) [#/Vol] 0.00 10*3/uL [facility] [employer] Eosinophils/100 WBC (Bld) 0 % Low 1 - 4 % [facility] [employer] [facility] Erythrocyte distribution width (RBC) [Ratio] 14.5 % High 11.8 - 14.4 % [facility] [employer] Hematocrit (Bld) [Volume fraction] 39.3 % 36.3 - 47.1 % [facility] Hemoglobin (Bld) [Mass/Vol] 12.1 g/dL 11.9 - 15.1 g/dL [facility] Immature granulocytes (Bld) [#/Vol] 0.00 10*3/uL [facility] Immature granulocytes/100 WBC (Bld) 0 % 0 [facility] Interpretation and review of laboratory results Abnormal [facility] Lymphocytes/100 WBC (Bld) 9 % Low 24 - 44 % [facility] Lymphocytes/100 WBC (Bld) 1.48 % [facility] MCH (RBC) [Entitic mass] 31.8 pg 25.2 - 33.5 pg [facility] MCHC (RBC) [Mass/Vol] 30.8 g/dL 28.4 - 34.8 g/dL [facility] MCV (RBC) [Entitic vol] 103.4 fL High 82.6 - 102.9 fL [facility] Monocytes/100 WBC (Bld) 12 % High 1 - 7 % [facility] Monocytes/100 WBC (Bld) 1.97 % High [facility] Morphology Jose Cruz (Bld) [Interp] ANISOCYTOSIS PRESENT [facility] Morphology Jose Cruz (Bld) [Interp] MACROCYTOSIS PRESENT [facility] Neutrophils/100 WBC (Bld) 79 % High 36 - 66 % [facility] Nucleated RBC/100 WBC (Bld) [Ratio] 0.0 % 0.0 per 100 WBC [facility] Platelet mean volume (Bld) [Entitic vol] 9.5 fL 8.1 - 13.5 fL [facility] Platelets (Bld) [#/Vol] 290 10*3/uL [facility] RBC (Bld) [#/Vol] 3.80 10*6/uL Low 3.95 - 5.1 1 m/uL [facility] Segmented neutrophils/100 WBC (Bld) 12.95 % High [facility] WBC other (Bld) [#/Vol] 16.4 High [facility] CBC with Diffon 08-03-2023 Abs. Basophil 0.00 k/uL Normal 0.0-0.2 [facility] Comment on above: Performed By: #### B MS SQL SERVER DEVELOPER, CDP, CP, TROPI, LACTIC, DIME #### [address] [address] Livestock Handler: Ramon Hussein MD Abs.Imm.Granulocyt e 0.00 k/uL Normal 0.00-0.30 [facility] Comment on above: Performed By: #### B MS SQL SERVER DEVELOPER, CDP, CP, TROPI, LACTIC, DIME #### [address] [address] Livestock Handler: Ramon Hussein MD Abs.Neutrophil (Seg) 12.95 k/uL High 1.8-7.7 [facility] Comment on above: Performed By: #### B MS SQL SERVER DEVELOPER, CDP, CP, TROPI, LACTIC, DIME #### [address] [address] Livestock Handler: Ramon Hussein MD Basophils/100 WBC (Bld) 0 % Normal 0-2 [facility] Comment on above: Performed By: #### B MS SQL SERVER DEVELOPER, CDP, CP, TROPI, LACTIC, DIME #### [address] [address] Livestock Handler: Ramon Hussein MD Eosinophils (Bld) [#/Vol] 0.00 10*3/uL Normal 0.0-0.4 [facility] Comment on above: Performed By: #### B MS SQL SERVER DEVELOPER, CDP, CP, TROPI, LACTIC, DIME #### [address] [address] Livestock Handler: Ramon Hussein MD Eosinophils/100 WBC (Bld) 0 % Low 1-4 [facility] Comment on above: Performed By: #### B MS SQL SERVER DEVELOPER, CDP, CP, TROPI, LACTIC, DIME #### [facility] [employer] [address] [place] [address] Livestock Handler: Ramon Hussein MD Immature granulocytes/100 WBC (Bld) 0 % Normal 0 [facility] Comment on above: Performed By: #### B MS SQL SERVER DEVELOPER, CDP, CP, TROPI, LACTIC, DIME #### [address] [address] Livestock Handler: Ramon Hussein MD Lymphocytes (Bld) [#/Vol] 1.48 10*3/uL Normal 1.0-4.8 [facility] Comment on above: Performed By: #### B MS SQL SERVER DEVELOPER, CDP, CP, TROPI, LACTIC, DIME #### [address] [address] Livestock Handler: Ramon Hussein MD Lymphocytes/100 WBC (Bld) 9 % Low 24-44 [facility] Comment on above: Performed By: #### B MS SQL SERVER DEVELOPER, CDP, CP, TROPI, LACTIC, DIME #### [address] [address] Livestock Handler: Ramon Hussein MD Monocytes (Bld) [#/Vol] 1.97 10*3/uL High 0.1-0.8 [facility] Comment on above: Performed By: #### B MS SQL SERVER DEVELOPER, CDP, CP, TROPI, LACTIC, DIME #### [address] [address] Livestock Handler: Ramon Hussein MD Monocytes/100 WBC (Bld) 12 % High 1-7 [facility] Comment on above: Performed By: #### B MS SQL SERVER DEVELOPER, CDP, CP, TROPI, LACTIC, DIME #### [address] [address] Livestock Handler: Ramon Hussein MD Morphology Jose Cruz (Bld) [Interp] ANISOCYTOSIS PRESENT Normal [facility] Comment on above: Result Comment: MACR OCYTOSIS PRESENT Performed By: #### B MS SQL SERVER DEVELOPER, CDP, CP, TROPI, LACTIC, DIME #### [address] [address] Livestock Handler: Ramon Hussein MD Neutrophil (Seg) 79 % High 36-66 [facility] Comment on above: Performed By: #### B MS SQL SERVER DEVELOPER, CDP, CP, TROPI, LACTIC, DIME #### [address] [address] Livestock Handler: Ramon Hussein MD Erythrocyte distribution width (RBC) [Ratio] 14.5 % High 11.8-14.4 [facility] Comment on above: Performed By: #### B MS SQL SERVER DEVELOPER, CDP, CP, TROPI, LACTIC, DIME #### [address] [address] Livestock Handler: Ramon Hussein MD Hematocrit (Bld) [Volume fraction] 39.3 % Normal 36.3-47.1 [facility] Comment on above: Performed By: #### B MS SQL SERVER DEVELOPER, CDP, CP, TROPI, LACTIC, DIME #### [address] [address] Livestock Handler: Ramon Hussein MD Hemoglobin (Bld) [Mass/Vol] 12.1 g/dL Normal 11.9-15.1 [facility] Comment on above: Performed By: #### B MS SQL SERVER DEVELOPER, CDP, CP, TROPI, LACTIC, DIME #### [address] [address] Livestock Handler: Ramon Hussein MD MCH (RBC) [Entitic mass] 31.8 pg Normal 25.2-33.5 [facility] Comment on above: Performed By: #### B MS SQL SERVER DEVELOPER, CDP, CP, TROPI, LACTIC, DIME #### [address] [address] Livestock Handler: Ramon Hussein MD MCHC (RBC) [Mass/Vol] 30.8 g/dL Normal 28.4-34.8 [facility] Comment on above: Performed By: #### B MS SQL SERVER DEVELOPER, CDP, CP, TROPI, LACTIC, DIME #### [address] [address] Livestock Handler: Ramon Hussein MD MCV (RBC) [Entitic vol] 103.4 fL High 82.6-102.9 [facility] Comment on above: Performed By: #### B MS SQL SERVER DEVELOPER, CDP, CP, TROPI, LACTIC, DIME #### [address] [address] Livestock Handler: Ramon Hussein MD NRBC Automated 0.0 per 100 WBC Normal 0.0 [facility] Comment on above: Performed By: #### B MS SQL SERVER DEVELOPER, CDP, CP, TROPI, LACTIC, DIME #### [address] [address] Livestock Handler: Ramon Hussein MD Platelet mean volume (Bld) [Entitic vol] 9.5 fL Normal 8.1-13.5 [facility] Comment on above: Performed By: #### B MS SQL SERVER DEVELOPER, CDP, CP, TROPI, LACTIC, DIME #### [address] [address] Livestock Handler: Ramon Hussein MD Platelets (Bld) [#/Vol] 290 10*3/uL Normal 138-453 [facility] Comment on above: Performed By: #### B MS SQL SERVER DEVELOPER, CDP, CP, TROPI, LACTIC, DIME #### [address] [address] Livestock Handler: Ramon Hussein MD RBC (Bld) [#/Vol] 3.80 10*6/uL Low 3.95-5.11 [facility] Comment on above: Performed By: #### B MS SQL SERVER DEVELOPER, CDP, CP, TROPI, LACTIC, DIME #### [place] [address] [place], [place] [phone] Livestock Handler: Ramon Hussein MD WBC (Bld) [#/Vol] 16.4 10*3/uL High 3.5-11.3 [facility] Comment on above: Performed By: #### B MS SQL SERVER DEVELOPER, CDP, CP, TROPI, LACTIC, DIME #### [address] [place], [place] [phone] Livestock Handler: Ramon Hussein MD [facility] Albumin [Mass/Vol] 3.0 g/dL Low 3.5 - 5.2 g/dL [facility] Albumin/Globulin [Mass ratio] 0.7 {ratio} Low 1.0 - 2.5 [facility] ALP [Catalytic activity/Vol] 69 U/L 35 - 104 U/L [facility] Comment on above: SPECIMEN SLIGHTLY HE MOLYZED, RESULTS MAY BE ADVERSELY AFFECTED. ALT [Catalytic activity/Vol] 11 U/L 5 - 33 U/L [facility] Comment on above: SPECIMEN SLIGHTLY HE MOLYZED, RESULTS MAY BE ADVERSELY AFFECTED. Anion gap [Moles/Vol] 13 mmol/L 9 - 17 mmol/L [facility] [employer] AST [Catalytic activity/Vol] 17 U/L NINF - 32 U/L [facility] Comment on above: SPECIMEN SLIGHTLY HE MOLYZED, RESULTS MAY BE ADVERSELY AFFECTED. Bilirubin [Mass/Vol] 0.3 mg/dL 0.3 - 1.2 mg/dL [facility] [employer] Calcium [Mass/Vol] 8.7 mg/dL 8.6 - 10. 4 mg/dL [facility] Chloride [Moles/Vol] 102 mmol/L 98 - 107 mmol/L [facility] [employer] CO2 [Moles/Vol] 24 mmol/L 20 - 31 mmol/L [facility] Creatinine [Mass/Vol] 1.8 mg/dL High 0.5 - 0.9 mg/dL [facility] [employer] GFR/1.73 sq M.predicted MDRD (S/P/Bld) [Vol rate/Area] 29 mL/min/{1.73_m2} Low - PINF [facility] [employer] Comment on above: These results are not [...] [Mass/Vol] 95 mg/dL 70 - 99 mg/dL [facility] [employer] Interpretation and review of laboratory results Abnormal [facility] [employer] Potassium [Moles/Vol] 4.3 mmol/L 3.7 - 5.3 mmol/L [facility] [employer] Comment on above: SPECIMEN SLIGHTLY HE MOLYZED, RESULTS MAY BE ADVERSELY AFFECTED. Protein [Mass/Vol] 7.1 g/dL 6.4 - 8.3 g/dL [facility] [employer] Sodium [Moles/Vol] 139 mmol/L 135 - 144 mmol/L [facility] Urea nitrogen [Mass/Vol] 26 mg/dL High 8 - 23 mg/dL [facility] NetworksFRYE REGIONAL MEDICAL CENTERLink[facility] [employer] CT CERVICAL SPINE WO CONTRAS Ton 08-03-2023 [...] Ann Washburn MD 08/03/23 Final result Normal [facility] CT Cervical spine WO adina ton 08-03-2023 No acute cervical sp ine fracture or traumatic subluxation. [facility] CONSOLIDATED EXAMINATION: CT OF [...] thyroidectomy changes with surgical clips in place. [facility] Lee Ann Washburn [...] acute cervical spine fracture or traumatic subluxation. [facility] CT Cervical spine WO contras tOrdered By: Lee Ann Washburn on 08-03-2023 [facility] Work Phone: CT HEAD WO CONTRASTon 2022 [...] Shemar Thomas MD 08/03/23 Final result Normal [facility] CT Head WO contraston 2022 No acute intracrania l abnormality. Stable left frontal encephalomalacia. [facility] RIS CONSOLIDATED EXAMINATION: CT OF THE HEAD [...] of the visualized skull or soft tissues. [facility] Shemar Vizcaino MD - 08/03/2023 EXAMINATION: CT [...] acute intracranial abnormality. Stable left frontal encephalomalacia. [facility] CT Head WO contrastOrdered B y: Shemar Thomas on 08-03-2023 [facility] [employer] Work Phone: Comp Metabolic Profon 2022 Albumin [Mass/Vol] 3.0 g/dL Low 3.5-5.2 [facility] Comment on above: Performed By: #### C DP, BMPX #### [address] [address] Livestock Handler: Ramon Hussein MD Albumin/Glob Ratio 0.7 Low 1.0-2.5 [facility] Comment on above: Performed By: #### C DP, BMPX #### [facility] [employer] [address] [place] [address] Livestock Handler: Ramon Hussein MD Alkaline Phos 69 U/L Normal 35-104 [facility] Comment on above: Result Comment: SPEC IMEN SLIGHTLY HEMOLYZED, RESULTS MAY BE ADVERSELY AFFECTED. Performed By: #### C DP, BMPX #### [facility] [employer] [address] [place] [address] Livestock Handler: Ramon Hussein MD ALT [Catalytic activity/Vol] 11 U/L Normal 5-33 [facility] Comment on above: Result Comment: SPEC IMEN SLIGHTLY HEMOLYZED, RESULTS MAY BE ADVERSELY AFFECTED. Performed By: #### C DP, BMPX #### [address] [address] Livestock Handler: Ramon Hussein MD Anion gap [Moles/Vol] 13 mmol/L Normal 9-17 [facility] Comment on above: Performed By: #### C DP, BMPX #### [facility] [employer] [address] [place] [address] Livestock Handler: Ramon Hussein MD AST [Catalytic activity/Vol] 17 U/L Normal <32 [facility] Comment on above: Result Comment: SPEC IMEN SLIGHTLY HEMOLYZED, RESULTS MAY BE ADVERSELY AFFECTED. Performed By: #### C DP, BMPX #### [facility] [place] [address] Livestock Handler: Ramon Hussein MD Bilirubin [Mass/Vol] 0.3 mg/dL Normal 0.3-1.2 [facility] Comment on above: Performed By: #### C DP, BMPX #### [facility] [address] [place] [address] Livestock Handler: Ramon Hussein MD Calcium [Mass/Vol] 8.7 mg/dL Normal 8.6-10.4 [facility] Comment on above: Performed By: #### C DP, BMPX #### [facility] [employer] [address] [place] [address] Livestock Handler: Ramon Hussein MD Chloride [Moles/Vol] 102 mmol/L Normal 98-107 [facility] Comment on above: Performed By: #### C DP, BMPX #### [facility] [address] [place] [address] Livestock Handler: Ramon Hussein MD CO2 [Moles/Vol] 24 mmol/L Normal 20-31 [facility] Comment on above: Performed By: #### C DP, BMPX #### [facility] [address] [place] [address] Livestock Handler: Ramon Hussein MD Creatinine [Mass/Vol] 1.8 mg/dL High 0.5-0.9 [facility] Comment on above: Performed By: #### C DP, BMPX #### [facility] [address] [place] [address] Livestock Handler: Ramon Hussein MD GFR/1.73 sq M.predicted among non-blacks MDRD (S/P/Bld) [Vol rate/Area] 29 mL/min/{1.73_m2} Low >60 [facility] Comment on above: Result Comment: These results [...] Performed By: #### C DP, BMPX #### [facility] [address] [place] [address] Livestock Handler: Ramon Hussein MD Glucose [Mass/Vol] 95 mg/dL Normal 70-99 [facility] Comment on above: Performed By: #### C DP, BMPX #### [facility] [address] [place] [address] Livestock Handler: Ramon Hussein MD Potassium [Moles/Vol] 4.3 mmol/L Normal 3.7-5.3 [facility] Comment on above: Result Comment: SPEC IMEN SLIGHTLY HEMOLYZED, RESULTS MAY BE ADVERSELY AFFECTED. Performed By: #### C DP, BMPX #### [facility] [employer] [address] [place] [address] Livestock Handler: Ramon Hussein MD Protein [Mass/Vol] 7.1 g/dL Normal 6.4-8.3 [facility] Comment on above: Performed By: #### C DP, BMPX #### [facility] [address] [place] [address] Livestock Handler: Ramon Hussein MD Sodium [Moles/Vol] 139 mmol/L Normal 135-144 [facility] Comment on above: Performed By: #### C DP, BMPX #### [facility] [address] [place] [address] Livestock Handler: Ramon Hussein MD Urea nitrogen [Mass/Vol] 26 mg/dL High 8-23 [facility] Comment on above: Performed By: #### C DP, BMPX #### [facility] [address] [place] [phone] Livestock Handler: Ramon Hussein MD D-Dimer Teston 08-03-2023 D-Dimer Test 1.08 ug/mL FEU High 0.00-0.57 [facility] Comment on above: Result Comment: When [...] with distal DVT. Performed By: #### B MS SQL SERVER DEVELOPER, CDP, CP, TROPI, LACTIC, DIME #### [facility] [address] [place] [address] Livestock Handler: Ramon Hussein MD D-Dimer, Quantitativeon 07-16 Fibrin D-dimer FEU (PPP) [Mass/Vol] 1.08 High [facility] Comment on above: When combined with a [...] and review of laboratory results Abnormal [facility] Lactic Acidon 08-03-2023 Lactic Acid,Whole Bl 1.6 mmol/L Normal 0.7-2.1 [facility] Comment on above: Performed By: #### B MS SQL SERVER DEVELOPER, CDP, CP, TROPI, LACTIC, DIME #### [address] [place] [phone] Livestock Handler: Ramon Hussein MD Lactic Acid, Whole Blood 1.6 mmol/L 0.7 - 2.1 mmol/L [facility] No Panel Informationon 08-03 Interpretation and review of laboratory results Abnormal [facility] Radiology Study observation (narrative) [facility] Troponinon 08-03-2023 Troponin, High Sens 13 ng/L Normal 0-14 [facility] Comment on above: Result Comment: High Sensitivity Troponin values cannot be compared with other Troponin methodologies. Performed By: #### C DP, BMP #### [address] [place], [place] [phone] Livestock Handler: Ramon Hussein MD Troponin, High Sens 16 ng/L High 0-14 [facility] Comment on above: Result Comment: High Sensitivity Troponin values cannot be compared with other Troponin methodologies. Performed By: #### C DP, BMPX #### [address] [place] [address] Livestock Handler: Ramon Hussein MD Troponin I.cardiac High sensitivity method [Mass/Vol] 13 ng/L 0 - 14 ng/L [facility] Comment on above: High Sensitivity Tro ponin values cannot be compared with other Troponin methodologies. [facility] Troponin I.cardiac High sensitivity method [Mass/Vol] 16 ng/L High 0 - 14 ng/L [facility] Comment on above: High Sensitivity Tro ponin [...] Jesús Yen MD 08/03/23 Final result Normal [facility] XR Chest 2 Viewson 3 1. No [...] No acute findings. 2. Large lung volumes. [facility] Radiology Study observation (narrative) [facility] XR Chest 2 ViewsOrdered By: Jesús Yen on 08-03-2023 [facility] Work Phone: CT HEAD WO CONTRASTon 2022 [...] Aundrea Evangelista MD 07/19/23 Final result Normal [facility] CT HEAD WO CONTRASTon 2022 CT [...] infarct in the left basal ganglia and niem-[id number] chronic white matter microvascular ischemic changes. No [...] Aundrea Evangelista MD 05/19/23 Final result Normal [facility] Basic Metabolic Profon 05-11 Anion gap [Moles/Vol] 11 mmol/L Normal 9-17 [facility] Comment on above: Performed By: #### C DP, BMP #### [facility] [address] [place] [address] [phone] Livestock Handler: Ramon Hussein MD Calcium [Mass/Vol] 9.5 mg/dL Normal 8.6-10.4 [facility] Comment on above: Performed By: #### C DP, BMP #### [address] [place] [address] [phone] Livestock Handler: Ramon Hussein MD Chloride [Moles/Vol] 102 mmol/L Normal 98-107 [facility] Comment on above: Performed By: #### C DP, BMP #### [facility] [place] [address] Livestock Handler: Ramon Hussein MD CO2 [Moles/Vol] 26 mmol/L Normal 20-31 [facility] Comment on above: Performed By: #### C DP, BMP #### [facility] [address] [place] [address] Livestock Handler: Ramon Hussein MD Creatinine [Mass/Vol] 2.4 mg/dL High 0.5-0.9 [facility] Comment on above: Performed By: #### C DP, BMP #### [address] [place] [address] Livestock Handler: Ramon Hussein MD GFR/1.73 sq M.predicted among non-blacks MDRD (S/P/Bld) [Vol rate/Area] 21 mL/min/{1.73_m2} Low >60 [facility] Comment on above: Result Comment: These results [...] Performed By: #### C DP, BMP #### [facility] [address] [place] [address] Livestock Handler: Ramon Hussein MD Glucose [Mass/Vol] 136 mg/dL High 70-99 [facility] Comment on above: Performed By: #### C DP, BMP #### [facility] [place] [address] Livestock Handler: Ramon Hussein MD Potassium [Moles/Vol] 3.6 mmol/L Low 3.7-5.3 [facility] Comment on above: Performed By: #### C DP, BMP #### [address] [place] [address] Livestock Handler: Ramon Hussein MD Sodium [Moles/Vol] 139 mmol/L Normal 135-144 [facility] Comment on above: Performed By: #### C DP, BMP #### [address] [address] Livestock Handler: Ramon Hussein MD Urea nitrogen [Mass/Vol] 24 mg/dL High 8-23 [facility] Comment on above: Performed By: #### C DP, BMP #### [address] [address] Livestock Handler: Ramon Hussein MD CBC with Diffon 05-11-2023 Abs. Basophil 0.03 k/uL Normal 0.00-0.20 [facility] Comment on above: Performed By: #### C DP, BMP #### [address] [address] Livestock Handler: Ramon Hussein MD Abs.Imm.Granulocyt e 0.04 k/uL Normal 0.00-0.30 [facility] Comment on above: Performed By: #### C DP, BMP #### [address] [address] Livestock Handler: Ramon Hussein MD Abs.Neutrophil (Seg) 5.77 k/uL Normal 1.50-8.10 [facility] Comment on above: Performed By: #### C DP, BMP #### [address] [address] Livestock Handler: Ramon Hussein MD Basophils/100 WBC (Bld) 0 % Normal 0-2 [facility] Comment on above: Performed By: #### C DP, BMP #### [facility] [employer] [address] [place] [address] Livestock Handler: Ramon Hussein MD Eosinophils (Bld) [#/Vol] 0.13 10*3/uL Normal 0.00-0.44 [facility] Comment on above: Performed By: #### C DP, BMP #### [address] [address] Livestock Handler: Ramon Hussein MD Eosinophils/100 WBC (Bld) 2 % Normal 1-4 [facility] Comment on above: Performed By: #### C DP, BMP #### [place] [address] Livestock Handler: Ramon Hussein MD Erythrocyte distribution width (RBC) [Ratio] 14.6 % High 11.8-14.4 [facility] Comment on above: Performed By: #### C DP, BMP #### [place] [address] Livestock Handler: Ramon Hussein MD Hematocrit (Bld) [Volume fraction] 37.4 % Normal 36.3-47.1 [facility] Comment on above: Performed By: #### C DP, BMP #### [place] [address] Livestock Handler: Ramon Hussein MD Hemoglobin (Bld) [Mass/Vol] 12.1 g/dL Normal 11.9-15.1 [facility] Comment on above: Performed By: #### C DP, BMP #### [place] [address] Livestock Handler: Ramon Hussein MD Immature granulocytes/100 WBC (Bld) 1 % High 0 [facility] Comment on above: Performed By: #### C DP, BMP #### [address] [address] Livestock Handler: Ramon Hussein MD Lymphocytes (Bld) [#/Vol] 0.79 10*3/uL Low 1.10-3.70 [facility] Comment on above: Performed By: #### C DP, BMP #### [address] [address] Livestock Handler: Ramon Hussein MD Lymphocytes/100 WBC (Bld) 10 % Low 24-43 [facility] Comment on above: Performed By: #### C DP, BMP #### [address] [address] Livestock Handler: Ramon Hussein MD MCH (RBC) [Entitic mass] 32.1 pg Normal 25.2-33.5 [facility] Comment on above: Performed By: #### C DP, BMP #### [address] [address] Livestock Handler: Ramon Hussein MD MCHC (RBC) [Mass/Vol] 32.4 g/dL Normal 28.4-34.8 [facility] Comment on above: Performed By: #### C DP, BMP #### [address] [address] Livestock Handler: Ramon Hussein MD MCV (RBC) [Entitic vol] 99.2 fL Normal 82.6-102.9 [facility] Comment on above: Performed By: #### C DP, BMP #### [address] [address] Livestock Handler: Ramon Hussein MD Monocytes (Bld) [#/Vol] 0.99 10*3/uL Normal 0.10-1.20 [facility] Comment on above: Performed By: #### C DP, BMP #### [address] [address] Livestock Handler: Ramon Hussein MD Monocytes/100 WBC (Bld) 13 % High 3-12 [facility] Comment on above: Performed By: #### C DP, BMP #### [address] [address] Livestock Handler: Ramon Hussein MD Neutrophil (Seg) 74 % High 36-65 [facility] Comment on above: Performed By: #### C DP, BMP #### [address] [address] Livestock Handler: Ramon Hussein MD NRBC Automated 0.0 per 100 WBC Normal 0.0 [facility] Comment on above: Performed By: #### C DP, BMP #### [address] [address] Livestock Handler: Ramon Hussein MD Platelet mean volume (Bld) [Entitic vol] 10.8 fL Normal 8.1-13.5 [facility] Comment on above: Performed By: #### C DP, BMP #### [address] [address] Livestock Handler: Ramon Hussein MD Platelets (Bld) [#/Vol] 321 10*3/uL Normal 138-453 [facility] Comment on above: Performed By: #### C DP, BMP #### [address] [address] Livestock Handler: Ramon Hussein MD RBC (Bld) [#/Vol] 3.77 10*6/uL Low 3.95-5.11 [facility] Comment on above: Performed By: #### C DP, BMP #### [address] [address] Livestock Handler: Ramon Hussein MD RBC morphology finding Nom (Bld) ANISOCYTOSIS PRESENT Normal [facility] Comment on above: Performed By: #### C DP, BMP #### [address] [address] Livestock Handler: Ramon Hussein MD WBC (Bld) [#/Vol] 7.8 10*3/uL Normal 3.5-11.3 [facility] Comment on above: Performed By: #### C DP, BMP #### [address] [address] Livestock Handler: Ramon Hussein MD Cult,Urineon 05-11-2023 Cult,Urine Specimen Description .CLEAN CATCH URINE Culture NO SIGNIFICANT GROWTH Report Status FINAL 05/11/2023 Normal [facility] Comment on above: Performed By: #### U RC #### [address] [address] Livestock Handler: Ramon Hussein MD UA w/Reflex Cultureon 2022 Bilirubin, SemiQt,Ur Negative Normal NEG [facility] Comment on above: Performed By: #### P E #### [address] [address] Livestock Handler: Ramon Hussein MD Blood, Urine Negative Normal NEG [facility] Comment on above: Performed By: #### P E #### [address] [address] Livestock Handler: Ramon Hussein MD Clarity (U) Turbid Abnormal CLEAR [facility] Comment on above: Performed By: #### P E #### [address] [address] Livestock Handler: Ramon Hussein MD Color (U) Yellow Normal YEL [facility] Comment on above: Performed By: #### P E #### [address] [address] Livestock Handler: Ramon Hussein MD Glucose Ql (U) Negative Normal NEG [facility] Comment on above: Performed By: #### P E #### [address] [address] Livestock Handler: Ramon Hussein MD Ketones Ql (U) TRACE Abnormal NEG [facility] Comment on above: Performed By: #### P E #### [address] [address] Livestock Handler: Ramon Hussein MD Leukocyte esterase Test strip Ql (U) MODERATE Abnormal NEG [facility] Comment on above: Performed By: #### P E #### [address] [address] Livestock Handler: Ramon Hussein MD Nitrite,Ur Negative Normal NEG [facility] Comment on above: Performed By: #### P E #### [address] [address] Livestock Handler: Ramon Hussein MD PH,Ur 5.5 Normal 5.0-8.0 [facility] Comment on above: Performed By: #### P E #### [address] [address] Livestock Handler: Ramon Hussein MD Protein Ql (U) 2+ mg/dL Abnormal NEG [facility] Comment on above: Performed By: #### P E #### [address] [address] Livestock Handler: Ramon Hussein MD Spec. [place],Ur 1.016 Normal 1.005-1.030 [facility] Comment on above: Performed By: #### P E #### [address] [address] Livestock Handler: Ramon Hussein MD Urobilinogen,Ur Normal Normal 0.0-1.0 [facility] Comment on above: Performed By: #### P E #### [address] [address] Livestock Handler: Ramon Hussein MD Urinalysis,Microon 09-26-202 3 Bacteria FEW Abnormal NONE [facility] Comment on above: Performed By: #### P E #### [address] [address] Livestock Handler: Ramon Hussein MD Casts 20 TO 50 Normal 0-8 [facility] Comment on above: Result Comment: Refe rence range defined for non-centrifuged specimen. Performed By: #### P E #### [address] [address] Livestock Handler: Ramon Hussein MD Epithelial cells LM Ql (Urine sed) 20 TO 50 Normal 0-5 [facility] Comment on above: Performed By: #### P E #### [address] [address] Livestock Handler: Ramon Hussein MD Urine RBC's 0 TO 2 Normal 0-4 [facility] Comment on above: Result Comment: Refe rence range defined for non-centrifuged specimen. Performed By: #### P E #### [address] [address] Livestock Handler: aRmon Hussein MD Urine WBC's 50 TO 100 Normal 0-5 [facility] Comment on above: Performed By: #### P E #### [address] [address] Livestock Handler: Ramon Hussein MD Basic Metabolic Panelon - Anion gap [Moles/Vol] 11 mmol/L 9 - 17 mmol/L [facility] Calcium [Mass/Vol] 9.3 mg/dL 8.6 - 10. 4 mg/dL [facility] Chloride [Moles/Vol] 100 mmol/L 98 - 107 mmol/L [facility] CO2 [Moles/Vol] 25 mmol/L 20 - 31 mmol/L [facility] Creatinine [Mass/Vol] 1.8 mg/dL High 0.5 - 0.9 mg/dL [facility] GFR/1.73 sq M.predicted MDRD (S/P/Bld) [Vol rate/Area] 30 mL/min/{1.73_m2} Low - PINF [facility] [employer] Comment on above: These results are not [...] [Mass/Vol] 82 mg/dL 70 - 99 mg/dL [facility] [employer] Interpretation and review of laboratory results Abnormal [facility] [employer] Potassium [Moles/Vol] 3.7 mmol/L 3.7 - 5.3 mmol/L [facility] [employer] Sodium [Moles/Vol] 136 mmol/L 135 - 144 mmol/L [facility] [employer] Urea nitrogen [Mass/Vol] 34 mg/dL High 8 - 23 mg/dL [facility] [employer] [facility] [employer] Basic Metabolic Profon 04-27 Anion gap [Moles/Vol] 11 mmol/L Normal 9-17 [facility] Comment on above: Performed By: #### C DP, BMPX #### [facility] [address] [place] [address] Livestock Handler: Ramon Hussein MD Calcium [Mass/Vol] 9.3 mg/dL Normal 8.6-10.4 [facility] Comment on above: Performed By: #### C DP, BMPX #### [address] [place], [place] [id number] Livestock Handler: Ramon Hussein MD Chloride [Moles/Vol] 100 mmol/L Normal 98-107 [facility] Comment on above: Performed By: #### C DP, BMPX #### [address] [facility] [place], [place] [phone] Livestock Handler: Ramon Hussein MD CO2 [Moles/Vol] 25 mmol/L Normal 20-31 [facility] Comment on above: Performed By: #### C DP, BMPX #### [address] [address] Livestock Handler: Ramon Hussein MD Creatinine [Mass/Vol] 1.8 mg/dL High 0.5-0.9 [facility] Comment on above: Performed By: #### C DP, BMPX #### [address] [address] Livestock Handler: Ramon Hussein MD GFR/1.73 sq M.predicted among non-blacks MDRD (S/P/Bld) [Vol rate/Area] 30 mL/min/{1.73_m2} Low >60 [facility] Comment on above: Result Comment: These results [...] Performed By: #### C DP, BMPX #### [address] [address] Livestock Handler: Ramon Hussein MD Glucose [Mass/Vol] 82 mg/dL Normal 70-99 [facility] Comment on above: Performed By: #### C DP, BMPX #### [facility] [employer] [address] [place] [address] Livestock Handler: Ramon Hussein MD Potassium [Moles/Vol] 3.7 mmol/L Normal 3.7-5.3 [facility] Comment on above: Performed By: #### C DP, BMPX #### [address] [address] Livestock Handler: Ramon Hussein MD Sodium [Moles/Vol] 136 mmol/L Normal 135-144 [facility] Comment on above: Performed By: #### C DP, BMPX #### [facility] [address] [place] [address] Livestock Handler: Ramon Hussein MD Urea nitrogen [Mass/Vol] 34 mg/dL High 8- [facility] Comment on above: Performed By: #### C DP, BMPX #### [address] [place] [address] Livestock Handler: Ramon Hussein MD CT HEAD WO CONTRASTon [...] achievable. COMPARISON: Prior outside head CT from [facility] is not available for comparison at this [...] Lj Grossman MD 04/21/23 Final result Normal [facility] Prot. Electroph, Blon 2022 Pathologist Review: ELECTRONICALLY SIGNED. CAM CORLEY M.D. Normal [facility] Comment on above: Performed By: #### P E #### [id number] [place] [address] Livestock Handler: Ramon Hussein MD Prot. Elect-Interp ALBUMIN IS DECREASED . MAY BE OBSERVED WITH HEPATIC DISEASE, PROTEINURIA, Normal [facility] Comment on above: Result Comment: MALN UTRITION, ACUTE PHASE RESPONSE, AND HEMODILUTION. Performed By: #### P E #### [address] [address] Livestock Handler: Ramon Hussein MD Prot. Electroph, Blon 7 Albumin [Mass/Vol] 3.1 g/dL Low 3.2-5.2 [facility] Comment on above: Performed By: #### P E #### [address] [address] Livestock Handler: Ramon Hussein MD Albumin, % 52 % Normal 45-65 [facility] Comment on above: Performed By: #### P E #### [address] [address] Livestock Handler: Ramon Hussein MD Mfefq-[id number]-yuwzeqthl 0.2 g/dL Normal 0.1-0.4 [facility] Comment on above: Performed By: #### P E #### [facility] [employer] [facility] [place] [address] Livestock Handler: Ramon Hussein MD Njojk-5-kiisskeeb, % 4 % Normal 3-6 [facility] Comment on above: Performed By: #### P E #### [address] [address] Livestock Handler: Ramon Hussein MD Emzck-7-shgfxdghn 0.9 g/dL Normal 0.5-0.9 [facility] Comment on above: Performed By: #### P E #### [address] [address] Livestock Handler: Ramon Hussein MD Pjalm-9-xiwptughi, % 15 % High 6-13 [facility] Comment on above: Performed By: #### P E #### [address] [address] Livestock Handler: Ramon Hussein MD Beta-globulins 0.7 g/dL Normal 0.5-1.1 [facility] Comment on above: Performed By: #### P E #### [address] [address] Livestock Handler: Ramon Hussein MD Beta-globulins,% 12 % Normal 11-19 [facility] Comment on above: Performed By: #### P E #### [address] [address] Livestock Handler: Ramon Hussein MD Gamma-globulins 1.0 g/dL Normal 0.5-1.5 [facility] Comment on above: Performed By: #### P E #### [address] [address] Livestock Handler: Ramon Hussein MD Gamma-globulins,% 18 % Normal 9-20 [facility] Comment on above: Performed By: #### P E #### [address] [address] Livestock Handler: Ramon Hussein MD Total Prot. Sum 5.9 g/dL Low 6.3-8.2 [facility] Comment on above: Performed By: #### P E #### [address] [address] Livestock Handler: Ramon Hussein MD Total Prot. Sum,% 101 % Normal 98-102 [facility] Comment on above: Performed By: #### P E #### [address] [address] Livestock Handler: Ramon Hussein MD Basic Metab w/rfx MGon 04-20 Anion gap [Moles/Vol] 12 mmol/L Normal 9-17 [facility] Comment on above: Performed By: #### P E #### [address] [address] Livestock Handler: Ramon Hussein MD Calcium [Mass/Vol] 8.9 mg/dL Normal 8.6-10.4 [facility] Comment on above: Performed By: #### P E #### [address] [address] Livestock Handler: Ramon Hussein MD Chloride [Moles/Vol] 108 mmol/L High 98-107 [facility] Comment on above: Performed By: #### P E #### [address] [address] Livestock Handler: Ramon Hussein MD CO2 [Moles/Vol] 21 mmol/L Normal 20-31 [facility] Comment on above: Performed By: #### P E #### [address] [address] Livestock Handler: Ramon Hussein MD Creatinine [Mass/Vol] 1.5 mg/dL High 0.5-0.9 [facility] Comment on above: Performed By: #### P E #### [address] [address] Livestock Handler: Ramon Hussein MD GFR/1.73 sq M.predicted among non-blacks MDRD (S/P/Bld) [Vol rate/Area] 37 mL/min/{1.73_m2} Low >60 [facility] Comment on above: Result Comment: These results [...] secretion. Performed By: #### P E #### [address] [address] Livestock Handler: Ramon Hussein MD Glucose [Mass/Vol] 94 mg/dL Normal 70-99 [facility] Comment on above: Performed By: #### P E #### [address] [address] Livestock Handler: Ramon Hussein MD Potassium [Moles/Vol] 3.8 mmol/L Normal 3.7-5.3 [facility] Comment on above: Performed By: #### P E #### [address] [address] Livestock Handler: Ramon Hussein MD Sodium [Moles/Vol] 141 mmol/L Normal 135-144 [facility] Comment on above: Performed By: #### P E #### [address] [address] Livestock Handler: Ramon Hussein MD Urea nitrogen [Mass/Vol] 23 mg/dL Normal 8-23 [facility] Comment on above: Performed By: #### P E #### [address] [address] Livestock Handler: Ramon Hussein MD CBC with Diffon 04-20-2023 Abs. Basophil 0.04 k/uL Normal 0.00-0.20 [facility] Comment on above: Performed By: #### C DP, BMP #### [address] [address] Livestock Handler: Ramon Hussein MD Abs.Imm.Granulocyt e 0.07 k/uL Normal 0.00-0.30 [facility] Comment on above: Performed By: #### C DP, BMP #### [address] [address] Livestock Handler: Ramon Hussein MD Abs.Neutrophil (Seg) 6.64 k/uL Normal 1.50-8.10 [facility] Comment on above: Performed By: #### C DP, BMP #### [address] [address] Livestock Handler: Ramon Hussein MD Basophils/100 WBC (Bld) 0 % Normal 0-2 [facility] Comment on above: Performed By: #### C DP, BMP #### [address] [address] Livestock Handler: Ramon Hussein MD Eosinophils (Bld) [#/Vol] 0.26 10*3/uL Normal 0.00-0.44 [facility] Comment on above: Performed By: #### C DP, BMP #### [address] [address] Livestock Handler: Ramon Hussein MD Eosinophils/100 WBC (Bld) 3 % Normal 1-4 [facility] Comment on above: Performed By: #### C DP, BMP #### [address] [address] Livestock Handler: Ramon Hussein MD Erythrocyte distribution width (RBC) [Ratio] 14.2 % Normal 11.8-14.4 [facility] Comment on above: Performed By: #### C DP, BMP #### [address] [address] Livestock Handler: Ramon Hussein MD Hematocrit (Bld) [Volume fraction] 36.7 % Normal 36.3-47.1 [facility] Comment on above: Performed By: #### C DP, BMP #### [address] [address] Livestock Handler: Ramon Hussein MD Hemoglobin (Bld) [Mass/Vol] 11.7 g/dL Low 11.9-15.1 [facility] Comment on above: Performed By: #### C DP, BMP #### [address] [address] Livestock Handler: Ramon Hussein MD Immature granulocytes/100 WBC (Bld) 1 % High 0 [facility] Comment on above: Performed By: #### C DP, BMP #### [place] [address] Livestock Handler: Ramon Hussein MD Lymphocytes (Bld) [#/Vol] 0.97 10*3/uL Low 1.10-3.70 [facility] Comment on above: Performed By: #### C DP, BMP #### [address] [address] Livestock Handler: Ramon Hussein MD Lymphocytes/100 WBC (Bld) 11 % Low 24-43 [facility] Comment on above: Performed By: #### C DP, BMP #### [place] [address] Livestock Handler: Ramon Hussein MD MCH (RBC) [Entitic mass] 31.5 pg Normal 25.2-33.5 [facility] Comment on above: Performed By: #### C DP, BMP #### [address] [address] Livestock Handler: Ramon Hussein MD MCHC (RBC) [Mass/Vol] 31.9 g/dL Normal 28.4-34.8 [facility] Comment on above: Performed By: #### C DP, BMP #### [address] [address] Livestock Handler: Ramon Hussein MD MCV (RBC) [Entitic vol] 98.9 fL Normal 82.6-102.9 [facility] Comment on above: Performed By: #### C DP, BMP #### [address] [address] Livestock Handler: Ramon Hussein MD Monocytes (Bld) [#/Vol] 1.27 10*3/uL High 0.10-1.20 [facility] Comment on above: Performed By: #### C DP, BMP #### [address] [address] Livestock Handler: Ramon Hussein MD Monocytes/100 WBC (Bld) 14 % High 3-12 [facility] Comment on above: Performed By: #### C DP, BMP #### [address] [address] Livestock Handler: Ramon Hussein MD Neutrophil (Seg) 71 % High 36-65 [facility] Comment on above: Performed By: #### C DP, BMP #### [address] [address] Livestock Handler: Ramon Hussein MD NRBC Automated 0.0 per 100 WBC Normal 0.0 [facility] Comment on above: Performed By: #### C DP, BMP #### [address] [address] Livestock Handler: Ramon Hussein MD Platelet mean volume (Bld) [Entitic vol] 10.3 fL Normal 8.1-13.5 [facility] Comment on above: Performed By: #### C DP, BMP #### [address] [address] Livestock Handler: Ramon Hussein MD Platelets (Bld) [#/Vol] 274 10*3/uL Normal 138-453 [facility] Comment on above: Performed By: #### C DP, BMP #### [address] [address] Livestock Handler: Ramon Hussein MD RBC (Bld) [#/Vol] 3.71 10*6/uL Low 3.95-5.11 [facility] Comment on above: Performed By: #### C DP, BMP #### [address] [address] Livestock Handler: Ramon Hussein MD WBC (Bld) [#/Vol] 9.3 10*3/uL Normal 3.5-11.3 [facility] Comment on above: Performed By: #### C DP, BMP #### [facility] [employer] [address] [place] [address] Livestock Handler: Ramon Hussein MD Prot. Electroph, Blon 2022 Protein [Mass/Vol] 5.9 g/dL Low 6.4-8.3 [facility] Comment on above: Performed By: #### P E #### [address] [address] Livestock Handler: Ramon Hussein MD Basic Metab w/rfx MGon 04-19 Anion gap [Moles/Vol] 11 mmol/L Normal 9-17 [facility] Comment on above: Performed By: #### C DP, BMPX #### [facility] [employer] [address] [place] [address] Livestock Handler: Ramon Hussein MD Calcium [Mass/Vol] 8.8 mg/dL Normal 8.6-10.4 [facility] Comment on above: Performed By: #### C DP, BMPX #### [facility] [employer] [address] [place] [address] Livestock Handler: Ramon Hussein MD Chloride [Moles/Vol] 108 mmol/L High 98-107 [facility] Comment on above: Performed By: #### C DP, BMPX #### [address] [address] Livestock Handler: Ramon Hussein MD CO2 [Moles/Vol] 20 mmol/L Normal 20-31 [facility] Comment on above: Performed By: #### C DP, BMPX #### [address] [address] Livestock Handler: Ramon Hussein MD Creatinine [Mass/Vol] 1.4 mg/dL High 0.5-0.9 [facility] Comment on above: Performed By: #### C DP, BMPX #### [address] [address] Livestock Handler: Ramon Hussein MD GFR/1.73 sq M.predicted among non-blacks MDRD (S/P/Bld) [Vol rate/Area] 40 mL/min/{1.73_m2} Low >60 [facility] Comment on above: Result Comment: These results [...] Performed By: #### C DP, BMPX #### [address] [address] Livestock Handler: Ramon Hussein MD Glucose [Mass/Vol] 103 mg/dL High 70-99 [facility] Comment on above: Performed By: #### C DP, BMPX #### [address] [place] [address] Livestock Handler: Ramon Hussein MD Potassium [Moles/Vol] 4.3 mmol/L Normal 3.7-5.3 [facility] Comment on above: Result Comment: SPEC IMEN SLIGHTLY HEMOLYZED, RESULTS MAY BE ADVERSELY AFFECTED. Performed By: #### C DP, BMPX #### [facility] [employer] [address] [place] [address] Livestock Handler: Ramon Hussein MD Sodium [Moles/Vol] 139 mmol/L Normal 135-144 [facility] Comment on above: Performed By: #### C DP, BMPX #### [facility] [employer] [address] [place] [address] Livestock Handler: Ramon Hussein MD Urea nitrogen [Mass/Vol] 22 mg/dL Normal 8-23 [facility] Comment on above: Performed By: #### C DP, BMPX #### [facility] [employer] [address] [place] [address] Livestock Handler: Ramon Hussein MD CBC with Diffon 04-19-2023 Abs. Basophil 0.03 k/uL Normal 0.00-0.20 [facility] Comment on above: Performed By: #### C DP, BMPX #### [facility] [employer] [address] [place] [address] Livestock Handler: Ramon Hussein MD Abs.Imm.Granulocyt e 0.06 k/uL Normal 0.00-0.30 [facility] Comment on above: Performed By: #### C DP, BMPX #### [facility] [employer] [address] [place] [address] Livestock Handler: Ramon Hussein MD Abs.Neutrophil (Seg) 7.21 k/uL Normal 1.50-8.10 [facility] Comment on above: Performed By: #### C DP, BMPX #### [facility] [employer] [address] [place] [address] Livestock Handler: Ramon Hussein MD Basophils/100 WBC (Bld) 0 % Normal 0-2 [facility] Comment on above: Performed By: #### C DP, BMPX #### [address] [address] Livestock Handler: Ramon Hussein MD Eosinophils (Bld) [#/Vol] 0.21 10*3/uL Normal 0.00-0.44 [facility] Comment on above: Performed By: #### C DP, BMPX #### [address] [address] Livestock Handler: Ramon Hussein MD Eosinophils/100 WBC (Bld) 2 % Normal 1-4 [facility] Comment on above: Performed By: #### C DP, BMPX #### [address] [address] Livestock Handler: Ramon Hussein MD Erythrocyte distribution width (RBC) [Ratio] 14.2 % Normal 11.8-14.4 [facility] Comment on above: Performed By: #### C DP, BMPX #### [address] [address] Livestock Handler: Ramon Hussein MD Hematocrit (Bld) [Volume fraction] 39.2 % Normal 36.3-47.1 [facility] Comment on above: Performed By: #### C DP, BMPX #### [facility] [employer] [address] [place] [address] Livestock Handler: Ramon Hussein MD Hemoglobin (Bld) [Mass/Vol] 12.3 g/dL Normal 11.9-15.1 [facility] Comment on above: Performed By: #### C DP, BMPX #### [facility] [employer] [address] [place] [address] Livestock Handler: Ramon Hussein MD Immature granulocytes/100 WBC (Bld) 1 % High 0 [facility] Comment on above: Performed By: #### C DP, BMPX #### [address] [address] Livestock Handler: Ramon Hussein MD Lymphocytes (Bld) [#/Vol] 0.79 10*3/uL Low 1.10-3.70 [facility] Comment on above: Performed By: #### C DP, BMPX #### [address] [address] Livestock Handler: Ramon Hussein MD Lymphocytes/100 WBC (Bld) 8 % Low 24-43 [facility] Comment on above: Performed By: #### C DP, BMPX #### [place] [address] Livestock Handler: Ramon Hussein MD MCH (RBC) [Entitic mass] 30.8 pg Normal 25.2-33.5 [facility] Comment on above: Performed By: #### C DP, BMPX #### [place] [address] Livestock Handler: Ramon Hussein MD MCHC (RBC) [Mass/Vol] 31.4 g/dL Normal 28.4-34.8 [facility] Comment on above: Performed By: #### C DP, BMPX #### [place] [address] Livestock Handler: Ramon Hussein MD MCV (RBC) [Entitic vol] 98.0 fL Normal 82.6-102.9 [facility] Comment on above: Performed By: #### C DP, BMPX #### [address] [address] Livestock Handler: Ramon Hussein MD Monocytes (Bld) [#/Vol] 1.22 10*3/uL High 0.10-1.20 [facility] Comment on above: Performed By: #### C DP, BMPX #### [place] [address] Livestock Handler: Ramon Hussein MD Monocytes/100 WBC (Bld) 13 % High 3-12 [facility] Comment on above: Performed By: #### C DP, BMPX #### [place] [address] Livestock Handler: Ramon Hussein MD Neutrophil (Seg) 76 % High 36-65 [facility] Comment on above: Performed By: #### C DP, BMPX #### [place] [address] Livestock Handler: Ramon Hussein MD NRBC Automated 0.0 per 100 WBC Normal 0.0 [facility] Comment on above: Performed By: #### C DP, BMPX #### [place] [address] Livestock Handler: Ramon Hussein MD Platelet mean volume (Bld) [Entitic vol] 10.1 fL Normal 8.1-13.5 [facility] Comment on above: Performed By: #### C DP, BMPX #### [place] [address] Livestock Handler: Ramon Hussein MD Platelets (Bld) [#/Vol] 260 10*3/uL Normal 138-453 [facility] Comment on above: Performed By: #### C DP, BMPX #### [place] [address] Livestock Handler: Ramon Hussein MD RBC (Bld) [#/Vol] 4.00 10*6/uL Normal 3.95-5.11 [facility] Comment on above: Performed By: #### C DP, BMPX #### [address] [place] [address] [place] [address] Livestock Handler: Ramon Hussein MD WBC (Bld) [#/Vol] 9.5 10*3/uL Normal 3.5-11.3 [facility] Comment on above: Performed By: #### C DP, BMPX #### [facility] [employer] [address] [place], [place] [id number] Livestock Handler: Ramon Hussein MD CT HEAD WO CONTRASTon [...] 04/16/2023. HISTORY: ORDERING SYSTEM PROVIDED HISTORY: F/U [facility] TECHNOLOGIST PROVIDED HISTORY: F/U IP FINDINGS: [...] Prakash Trujillo MD 04/19/23 Final result Normal [facility] Cult,Urineon 04-19-2023 Cult,Urine Specimen Description .CLEAN CATCH URINE Culture NO SAMPLE RECEIVED Report Status FINAL 04/19/2023 Normal [facility] Comment on above: Performed By: #### P E #### [facility] [employer] [address] [place] [address] Livestock Handler: Ramon Hussein MD Basic Metab w/rfx MGon 04-18 Anion gap [Moles/Vol] 11 mmol/L Normal 9-17 [facility] Comment on above: Performed By: #### C DP, BMPX #### [facility] [employer] [address] [place] [address] Livestock Handler: Ramon Hussein MD Calcium [Mass/Vol] 8.6 mg/dL Normal 8.6-10.4 [facility] Comment on above: Performed By: #### C DP, BMPX #### [facility] [employer] [address] [place] [address] Livestock Handler: Ramon Hussein MD Chloride [Moles/Vol] 108 mmol/L High 98-107 [facility] Comment on above: Performed By: #### C DP, BMPX #### [facility] [employer] [address] [place] [address] Livestock Handler: Ramon Hussein MD CO2 [Moles/Vol] 20 mmol/L Normal 20-31 [facility] Comment on above: Performed By: #### C DP, BMPX #### [facility] [employer] [address] [place] [address] Livestock Handler: Ramon Hussein MD Creatinine [Mass/Vol] 1.3 mg/dL High 0.5-0.9 [facility] Comment on above: Performed By: #### C DP, BMPX #### [facility] [employer] [address] [place] [address] Livestock Handler: Ramon Hussein MD GFR/1.73 sq M.predicted among non-blacks MDRD (S/P/Bld) [Vol rate/Area] 44 mL/min/{1.73_m2} Low >60 [facility] Comment on above: Result Comment: These results [...] Performed By: #### C DP, BMPX #### [address] [address] Livestock Handler: Ramon Hussein MD Glucose [Mass/Vol] 102 mg/dL High 70-99 [facility] Comment on above: Performed By: #### C DP, BMPX #### [facility] [employer] [address] [place] [address] Livestock Handler: Ramon Hussein MD Potassium [Moles/Vol] 3.9 mmol/L Normal 3.7-5.3 [facility] Comment on above: Performed By: #### C DP, BMPX #### [address] [address] Livestock Handler: Ramon Hussein MD Sodium [Moles/Vol] 139 mmol/L Normal 135-144 [facility] Comment on above: Performed By: #### C DP, BMPX #### [address] [address] Livestock Handler: Ramon Hussein MD Urea nitrogen [Mass/Vol] 17 mg/dL Normal 8-23 [facility] Comment on above: Performed By: #### C DP, BMPX #### [facility] [employer] [address] [place] [address] Livestock Handler: Ramon Hussein MD CBC with Diffon 04-18-2023 Abs. Basophil 0.03 k/uL Normal 0.00-0.20 [facility] Comment on above: Performed By: #### C DP, BMPX #### [facility] [employer] [address] [place] [address] Livestock Handler: Ramon Hussein MD Abs.Imm.Granulocyt e 0.07 k/uL Normal 0.00-0.30 [facility] Comment on above: Performed By: #### C DP, BMPX #### [facility] [employer] [address] [place] [address] Livestock Handler: Ramon Hussein MD Abs.Neutrophil (Seg) 8.22 k/uL High 1.50-8.10 [facility] Comment on above: Performed By: #### C DP, BMPX #### [facility] [employer] [address] [place] [address] Livestock Handler: Ramon Hussein MD Basophils/100 WBC (Bld) 0 % Normal 0-2 [facility] Comment on above: Performed By: #### C DP, BMPX #### [facility] [address] [place] [address] Livestock Handler: Ramon Hussein MD Eosinophils (Bld) [#/Vol] 0.15 10*3/uL Normal 0.00-0.44 [facility] Comment on above: Performed By: #### C DP, BMPX #### [facility] [employer] [address] [place] [address] Livestock Handler: Ramon Hussein MD Eosinophils/100 WBC (Bld) 1 % Normal 1-4 [facility] Comment on above: Performed By: #### C DP, BMPX #### [facility] [employer] [address] [place] [address] Livestock Handler: Ramon Hussein MD Erythrocyte distribution width (RBC) [Ratio] 13.8 % Normal 11.8-14.4 [facility] Comment on above: Performed By: #### C DP, BMPX #### [facility] [address] [place] [address] Livestock Handler: Ramon Hussein MD Hematocrit (Bld) [Volume fraction] 39.6 % Normal 36.3-47.1 [facility] Comment on above: Performed By: #### C DP, BMPX #### [facility] [address] [place] [address] Livestock Handler: Ramon Hussein MD Hemoglobin (Bld) [Mass/Vol] 12.3 g/dL Normal 11.9-15.1 [facility] Comment on above: Performed By: #### C DP, BMPX #### [facility] [employer] [address] [place] [address] Livestock Handler: Ramon Hussein MD Immature granulocytes/100 WBC (Bld) 1 % High 0 [facility] Comment on above: Performed By: #### C DP, BMPX #### [facility] [employer] [address] [place] [address] Livestock Handler: Ramon Hussein MD Lymphocytes (Bld) [#/Vol] 0.85 10*3/uL Low 1.10-3.70 [facility] Comment on above: Performed By: #### C DP, BMPX #### [facility] [employer] [address] [place] [address] Livestock Handler: Ramon Hussein MD Lymphocytes/100 WBC (Bld) 8 % Low 24-43 [facility] Comment on above: Performed By: #### C DP, BMPX #### [facility] [employer] [address] [place] [address] Livestock Handler: Ramon Hussein MD MCH (RBC) [Entitic mass] 30.6 pg Normal 25.2-33.5 [facility] Comment on above: Performed By: #### C DP, BMPX #### [facility] [employer] [address] [place] [address] Livestock Handler: Ramon Hussein MD MCHC (RBC) [Mass/Vol] 31.1 g/dL Normal 28.4-34.8 [facility] Comment on above: Performed By: #### C DP, BMPX #### [facility] [address] [place] [address] Livestock Handler: Ramon Hussein MD MCV (RBC) [Entitic vol] 98.5 fL Normal 82.6-102.9 [facility] Comment on above: Performed By: #### C DP, BMPX #### [address] [address] Livestock Handler: Ramon Hussein MD Monocytes (Bld) [#/Vol] 1.38 10*3/uL High 0.10-1.20 [facility] Comment on above: Performed By: #### C DP, BMPX #### [address] [address] Livestock Handler: Ramon Hussein MD Monocytes/100 WBC (Bld) 13 % High 3-12 [facility] Comment on above: Performed By: #### C DP, BMPX #### [address] [address] Livestock Handler: Ramon Hussein MD Neutrophil (Seg) 77 % High 36-65 [facility] Comment on above: Performed By: #### C DP, BMPX #### [address] [address] Livestock Handler: Ramon Hussein MD NRBC Automated 0.0 per 100 WBC Normal 0.0 [facility] Comment on above: Performed By: #### C DP, BMPX #### [address] [address] Livestock Handler: Ramon Hussein MD Platelet mean volume (Bld) [Entitic vol] 10.1 fL Normal 8.1-13.5 [facility] Comment on above: Performed By: #### C DP, BMPX #### [address] [address] Livestock Handler: Ramon Hussein MD Platelets (Bld) [#/Vol] 251 10*3/uL Normal 138-453 [facility] Comment on above: Performed By: #### C DP, BMPX #### [facility] [employer] [address] [place] [address] Livestock Handler: Ramon Hussein MD RBC (Bld) [#/Vol] 4.02 10*6/uL Normal 3.95-5.11 [facility] Comment on above: Performed By: #### C DP, BMPX #### [facility] [employer] [address] [place] [address] Livestock Handler: Ramon Hussein MD WBC (Bld) [#/Vol] 10.7 10*3/uL Normal 3.5-11.3 [facility] Comment on above: Performed By: #### C DP, BMPX #### [address] [address] Livestock Handler: Ramon Hussein MD Basic Metab w/rfx MGon 04-17 Anion gap [Moles/Vol] 14 mmol/L Normal 9-17 [facility] Comment on above: Performed By: #### C DP, BMPX #### [facility] [employer] [address] [place] [address] Livestock Handler: Ramon Hussein MD Calcium [Mass/Vol] 8.7 mg/dL Normal 8.6-10.4 [facility] Comment on above: Performed By: #### C DP, BMPX #### [facility] [employer] [address] [place] [address] Livestock Handler: Ramon Hussein MD Chloride [Moles/Vol] 108 mmol/L High 98-107 [facility] Comment on above: Performed By: #### C DP, BMPX #### [facility] [employer] [address] [place] [address] Livestock Handler: Ramon Hussein MD CO2 [Moles/Vol] 19 mmol/L Low 20-31 [facility] Comment on above: Performed By: #### C DP, BMPX #### [facility] [employer] [address] [place] [address] Livestock Handler: Ramon Hussein MD Creatinine [Mass/Vol] 1.6 mg/dL High 0.5-0.9 [facility] Comment on above: Performed By: #### C DP, BMPX #### [address] [address] Livestock Handler: Ramon Hussein MD GFR/1.73 sq M.predicted among non-blacks MDRD (S/P/Bld) [Vol rate/Area] 34 mL/min/{1.73_m2} Low >60 [facility] Comment on above: Result Comment: These results [...] Performed By: #### C DP, BMPX #### [address] [address] Livestock Handler: Ramon Hussein MD Glucose [Mass/Vol] 98 mg/dL Normal 70-99 [facility] Comment on above: Performed By: #### C DP, BMPX #### [facility] [employer] [address] [place] [address] Livestock Handler: Ramon Hussein MD Potassium [Moles/Vol] 3.9 mmol/L Normal 3.7-5.3 [facility] Comment on above: Performed By: #### C DP, BMPX #### [facility] [employer] [address] [place] [address] Livestock Handler: Ramon Hussein MD Sodium [Moles/Vol] 141 mmol/L Normal 135-144 [facility] Comment on above: Performed By: #### C DP, BMPX #### [place] [address] Livestock Handler: Ramon Hussein MD Urea nitrogen [Mass/Vol] 21 mg/dL Normal 8-23 [facility] Comment on above: Performed By: #### C DP, BMPX #### [place] [address] Livestock Handler: Ramon Hussein MD CBC with Diffon 04-17-2023 Abs. Basophil 0.00 k/uL Normal 0.0-0.2 [facility] Comment on above: Performed By: #### C DP, BMPX #### [place] [address] Livestock Handler: Ramon Hussein MD Abs.Imm.Granulocyt e 0.12 k/uL Normal 0.00-0.30 [facility] Comment on above: Performed By: #### C DP, BMPX #### [place] [address] Livestock Handler: Ramon Hussein MD Abs.Neutrophil (Seg) 9.52 k/uL High 1.8-7.7 [facility] Comment on above: Performed By: #### C DP, BMPX #### [place] [address] Livestock Handler: Ramon Hussein MD Basophils/100 WBC (Bld) 0 % Normal 0-2 [facility] Comment on above: Performed By: #### C DP, BMPX #### [place] [address] Livestock Handler: Ramon Hussein MD Eosinophils (Bld) [#/Vol] 0.12 10*3/uL Normal 0.0-0.4 [facility] Comment on above: Performed By: #### C DP, BMPX #### [facility] [employer] [address] [place] [address] Livestock Handler: Ramon Hussein MD Eosinophils/100 WBC (Bld) 1 % Normal 1-4 [facility] Comment on above: Performed By: #### C DP, BMPX #### [address] [address] Livestock Handler: Ramon Hussein MD Immature granulocytes/100 WBC (Bld) 1 % High 0 [facility] Comment on above: Performed By: #### C DP, BMPX #### [address] [address] Livestock Handler: Ramon Hussein MD Lymphocytes (Bld) [#/Vol] 0.71 10*3/uL Low 1.0-4.8 [facility] Comment on above: Performed By: #### C DP, BMPX #### [address] [address] Livestock Handler: Ramon Hussein MD Lymphocytes/100 WBC (Bld) 6 % Low 24-44 [facility] Comment on above: Performed By: #### C DP, BMPX #### [address] [address] Livestock Handler: Ramon Hussein MD Monocytes (Bld) [#/Vol] 1.43 10*3/uL High 0.1-0.8 [facility] Comment on above: Performed By: #### C DP, BMPX #### [address] [address] Livestock Handler: Ramon Hussein MD Monocytes/100 WBC (Bld) 12 % High 1-7 [facility] Comment on above: Performed By: #### C DP, BMPX #### [facility] [employer] [address] [place] [address] Livestock Handler: Ramon Hussein MD Morphology Jose Cruz (Bld) [Interp] Normal Normal [facility] Comment on above: Performed By: #### C DP, BMPX #### [address] [address] Livestock Handler: Ramon Hussein MD Neutrophil (Seg) 80 % High 36-66 [facility] Comment on above: Performed By: #### C DP, BMPX #### [address] [address] Livestock Handler: Ramon Hussein MD Erythrocyte distribution width (RBC) [Ratio] 14.0 % Normal 11.8-14.4 [facility] Comment on above: Performed By: #### C DP, BMPX #### [address] [address] Livestock Handler: Ramon Hussein MD Hematocrit (Bld) [Volume fraction] 39.4 % Normal 36.3-47.1 [facility] Comment on above: Performed By: #### C DP, BMPX #### [address] [address] Livestock Handler: Ramon Hussein MD Hemoglobin (Bld) [Mass/Vol] 12.2 g/dL Normal 11.9-15.1 [facility] Comment on above: Performed By: #### C DP, BMPX #### [address] [address] Livestock Handler: Ramon Husseni MD MCH (RBC) [Entitic mass] 30.2 pg Normal 25.2-33.5 [facility] Comment on above: Performed By: #### C DP, BMPX #### [address] [address] Livestock Handler: Ramon Hussein MD MCHC (RBC) [Mass/Vol] 31.0 g/dL Normal 28.4-34.8 [facility] Comment on above: Performed By: #### C DP, BMPX #### [address] [address] Livestock Handler: Ramon Hussein MD MCV (RBC) [Entitic vol] 97.5 fL Normal 82.6-102.9 [facility] Comment on above: Performed By: #### C DP, BMPX #### [address] [address] Livestock Handler: Ramon Hussein MD NRBC Automated 0.0 per 100 WBC Normal 0.0 [facility] Comment on above: Performed By: #### C DP, BMPX #### [address] [address] Livestock Handler: Ramon Hussein MD Platelet mean volume (Bld) [Entitic vol] 9.9 fL Normal 8.1-13.5 [facility] Comment on above: Performed By: #### C DP, BMPX #### [address] [address] Livestock Handler: Ramon Hussein MD Platelets (Bld) [#/Vol] 270 10*3/uL Normal 138-453 [facility] Comment on above: Performed By: #### C DP, BMPX #### [place] [address] Livestock Handler: Ramon Hussein MD RBC (Bld) [#/Vol] 4.04 10*6/uL Normal 3.95-5.11 [facility] Comment on above: Performed By: #### C DP, BMPX #### [address] [address] Livestock Handler: Ramon Hussein MD WBC (Bld) [#/Vol] 11.9 10*3/uL High 3.5-11.3 [facility] Comment on above: Performed By: #### C DP, BMPX #### [facility] [employer] [address] [place] [address] Livestock Handler: Ramon Hussein MD Hemoglobin A1Con 04-17-2023 Glucose [Mass/Vol] 120 mg/dL Normal [facility] Comment on above: Result Comment: The ADA and AACC recommend providing the estimated average glucose result to permit better patient understanding of their HBA1c result. Performed By: #### C DP, BMP #### [facility] [employer] [address] [place] [address] Livestock Handler: Ramon Hussein MD HbA1c (Bld) [Mass fraction] 5.8 % Normal 4.0-6.0 [facility] Comment on above: Performed By: #### C DP, BMP #### [address] [address] Livestock Handler: Ramon Hussein MD PTon 04-17-2023 INR Coag (PPP) [Relative time] 1.1 {INR} Normal [facility] Comment on above: Result Comment: Therapeutic Range: Moderate Anticoagulant Intensity: INR = 2.0-3.0 High Anticoagulant Intensity: INR = 2.5-3.5 Performed By: #### P E #### [address] [address] Livestock Handler: Ramon Hussein MD PT Coag (PPP) [Time] 14.2 s Normal 11.7-14.9 [facility] Comment on above: Performed By: #### P E #### [facility] [employer] [address] [place] [address] Livestock Handler: Ramon Hussein MD Troponinon 04-17-2023 Troponin, High Sens 16 ng/L High 0-14 [facility] Comment on above: Result Comment: High Sensitivity Troponin values cannot be compared with other Troponin methodologies. Performed By: #### C DP, BMPX #### [facility] [address] [place] [address] Livestock Handler: Ramon Hussein MD Basic Metabolic Profon 04-16 Anion gap [Moles/Vol] 17 mmol/L Normal 9-17 [facility] Comment on above: Performed By: #### C DP, BMP #### [facility] [employer] [address] [place] [address] Livestock Handler: Ramon Hussein MD Calcium [Mass/Vol] 9.1 mg/dL Normal 8.6-10.4 [facility] Comment on above: Performed By: #### C DP, BMP #### [facility] [employer] [address] [place] [address] Livestock Handler: Ramon Hussein MD Chloride [Moles/Vol] 107 mmol/L Normal 98-107 [facility] Comment on above: Performed By: #### C DP, BMP #### [facility] [employer] [address] [place] [address] Livestock Handler: Ramon Hussein MD CO2 [Moles/Vol] 18 mmol/L Low 20-31 [facility] [facility] Comment on above: Performed By: #### C DP, BMP #### [facility] [address] [place] [address] Livestock Handler: Ramon Hussein MD Creatinine [Mass/Vol] 1.8 mg/dL High 0.5-0.9 [facility] Comment on above: Performed By: #### C DP, BMP #### [facility] [address] [place] [address] Livestock Handler: Ramon Hussein MD GFR/1.73 sq M.predicted among non-blacks MDRD (S/P/Bld) [Vol rate/Area] 30 mL/min/{1.73_m2} Low >60 [facility] Comment on above: Result Comment: These results [...] Performed By: #### C DP, BMP #### [address] [address] Livestock Handler: Ramon Hussein MD Glucose [Mass/Vol] 94 mg/dL Normal 70-99 [facility] Comment on above: Performed By: #### C DP, BMP #### [address] [address] Livestock Handler: Ramon Hussein MD Potassium [Moles/Vol] 4.1 mmol/L Normal 3.7-5.3 [facility] Comment on above: Performed By: #### C DP, BMP #### [address] [address] Livestock Handler: Ramon Hussein MD Sodium [Moles/Vol] 142 mmol/L Normal 135-144 [facility] Comment on above: Performed By: #### C DP, BMP #### [address] [address] Livestock Handler: Ramon Hussein MD Urea nitrogen [Mass/Vol] 21 mg/dL Normal 8-23 [facility] Comment on above: Performed By: #### C DP, BMP #### [facility] [employer] [address] [place] [address] Livestock Handler: Ramon Hussein MD CBC with Diffon 04-16-2023 Abs. Basophil 0.03 k/uL Normal 0.00-0.20 [facility] Comment on above: Performed By: #### C DP, BMP #### [facility] [employer] [address] [place] [address] Livestock Handler: Ramon Hussein MD Abs.Imm.Granulocyt e 0.05 k/uL Normal 0.00-0.30 [facility] Comment on above: Performed By: #### C DP, BMP #### [place] [address] Livestock Handler: Ramon Hussein MD Abs.Neutrophil (Seg) 9.52 k/uL High 1.50-8.10 [facility] Comment on above: Performed By: #### C DP, BMP #### [place] [address] Livestock Handler: Ramon Hussein MD Basophils/100 WBC (Bld) 0 % Normal 0-2 [facility] Comment on above: Performed By: #### C DP, BMP #### [place] [address] Livestock Handler: Ramon Hussein MD Eosinophils (Bld) [#/Vol] 0.07 10*3/uL Normal 0.00-0.44 [facility] Comment on above: Performed By: #### C DP, BMP #### [place] [address] Livestock Handler: Ramon Hussein MD Eosinophils/100 WBC (Bld) 1 % Normal 1-4 [facility] Comment on above: Performed By: #### C DP, BMP #### [place] [address] Livestock Handler: Ramon Hussein MD Erythrocyte distribution width (RBC) [Ratio] 14.1 % Normal 11.8-14.4 [facility] Comment on above: Performed By: #### C DP, BMP #### [place] [address] Livestock Handler: Ramon Hussein MD Hematocrit (Bld) [Volume fraction] 40.9 % Normal 36.3-47.1 [facility] Comment on above: Performed By: #### C DP, BMP #### [address] [address] Livestock Handler: Ramon Hussein MD Hemoglobin (Bld) [Mass/Vol] 12.5 g/dL Normal 11.9-15.1 [facility] Comment on above: Performed By: #### C DP, BMP #### [address] [address] Livestock Handler: Ramon Hussein MD Immature granulocytes/100 WBC (Bld) 0 % Normal 0 [facility] Comment on above: Performed By: #### C DP, BMP #### [address] [address] Livestock Handler: Ramon Hussein MD Lymphocytes (Bld) [#/Vol] 0.86 10*3/uL Low 1.10-3.70 [facility] Comment on above: Performed By: #### C DP, BMP #### [address] [address] Livestock Handler: Ramon Hussein MD Lymphocytes/100 WBC (Bld) 7 % Low 24-43 [facility] Comment on above: Performed By: #### C DP, BMP #### [address] [address] Livestock Handler: Ramon Hussein MD MCH (RBC) [Entitic mass] 31.2 pg Normal 25.2-33.5 [facility] Comment on above: Performed By: #### C DP, BMP #### [address] [address] Livestock Handler: Ramon Hussein MD MCHC (RBC) [Mass/Vol] 30.6 g/dL Normal 28.4-34.8 [facility] Comment on above: Performed By: #### C DP, BMP #### [facility] [employer] [address] [place] [address] Livestock Handler: Ramon Hussein MD MCV (RBC) [Entitic vol] 102.0 fL Normal 82.6-102.9 [facility] Comment on above: Performed By: #### C DP, BMP #### [address] [address] Livestock Handler: Ramon Hussein MD Monocytes (Bld) [#/Vol] 1.36 10*3/uL High 0.10-1.20 [facility] Comment on above: Performed By: #### C DP, BMP #### [address] [address] Livestock Handler: Ramon Hussein MD Monocytes/100 WBC (Bld) 11 % Normal 3-12 [facility] Comment on above: Performed By: #### C DP, BMP #### [place] [address] Livestock Handler: Ramon Hussein MD Neutrophil (Seg) 81 % High 36-65 [facility] Comment on above: Performed By: #### C DP, BMP #### [address] [address] Livestock Handler: Ramon Hussein MD NRBC Automated 0.0 per 100 WBC Normal 0.0 [facility] Comment on above: Performed By: #### C DP, BMP #### [place] [address] Livestock Handler: Ramon Hussein MD Platelet mean volume (Bld) [Entitic vol] 9.7 fL Normal 8.1-13.5 [facility] Comment on above: Performed By: #### C DP, BMP #### [address] [address] Livestock Handler: Ramon Hussein MD Platelets (Bld) [#/Vol] 296 10*3/uL Normal 138-453 [facility] Comment on above: Performed By: #### C DP, BMP #### [address] [address] Livestock Handler: Ramon Hussein MD RBC (Bld) [#/Vol] 4.01 10*6/uL Normal 3.95-5.11 [facility] Comment on above: Performed By: #### C DP, BMP #### [address] [address] Livestock Handler: Ramon Hussein MD WBC (Bld) [#/Vol] 11.9 10*3/uL High 3.5-11.3 [facility] Comment on above: Performed By: #### C DP, BMP #### [address] [address] Livestock Handler: Ramon Hussein MD Comp Metabolic Profon 2022 Albumin [Mass/Vol] 3.4 g/dL Low 3.5-5.2 [facility] Comment on above: Performed By: #### C DP, BMP #### [address] [address] Livestock Handler: Ramon Hussein MD Albumin/Glob Ratio 0.9 Low 1.0-2.5 [facility] Comment on above: Performed By: #### C DP, BMP #### [address] [address] Livestock Handler: Ramon Hussein MD Alkaline Phos 91 U/L Normal 35-104 [facility] Comment on above: Performed By: #### C DP, BMP #### [facility] [employer] [address] [place] [address] Livestock Handler: Ramon Hussein MD ALT [Catalytic activity/Vol] 8 U/L Normal 5-33 [facility] Comment on above: Performed By: #### C DP, BMP #### [facility] [address] [place] [address] Livestock Handler: Ramon Hussein MD Anion gap [Moles/Vol] 19 mmol/L High 9-17 [facility] Comment on above: Performed By: #### C DP, BMP #### [facility] [address] [place] [address] Livestock Handler: Ramon Hussein MD AST [Catalytic activity/Vol] 13 U/L Normal <32 [facility] Comment on above: Performed By: #### C DP, BMP #### [address] [address] Livestock Handler: Ramon Hussein MD Bilirubin [Mass/Vol] 0.6 mg/dL Normal 0.3-1.2 [facility] Comment on above: Performed By: #### C DP, BMP #### [facility] [employer] [address] [place] [address] Livestock Handler: Ramon Hussein MD Calcium [Mass/Vol] 8.9 mg/dL Normal 8.6-10.4 [facility] Comment on above: Performed By: #### C DP, BMP #### [facility] [employer] [address] [place] [address] Livestock Handler: Ramon Hussein MD Chloride [Moles/Vol] 108 mmol/L High 98-107 [facility] Comment on above: Performed By: #### C DP, BMP #### [facility] [address] [place] [address] Livestock Handler: Ramon Hussein MD CO2 [Moles/Vol] 15 mmol/L Low 20-31 [facility] Comment on above: Performed By: #### C DP, BMP #### [facility] [address] [place] [address] Livestock Handler: Ramon Hussein MD Creatinine [Mass/Vol] 1.9 mg/dL High 0.5-0.9 [facility] Comment on above: Performed By: #### C DP, BMP #### [facility] [address] [place] [address] Livestock Handler: Ramon Hussein MD GFR/1.73 sq M.predicted among non-blacks MDRD (S/P/Bld) [Vol rate/Area] 28 mL/min/{1.73_m2} Low >60 [facility] Comment on above: Result Comment: These results [...] Performed By: #### C DP, BMP #### [facility] [address] [place] [address] Livestock Handler: Ramon Hussein MD Glucose [Mass/Vol] 103 mg/dL High 70-99 [facility] Comment on above: Performed By: #### C DP, BMP #### [facility] [address] [place] [address] Livestock Handler: Ramon Hussein MD Potassium [Moles/Vol] 4.3 mmol/L Normal 3.7-5.3 [facility] Comment on above: Performed By: #### C DP, BMP #### [facility] [address] [place] [address] Livestock Handler: Ramon Hussein MD Protein [Mass/Vol] 7.0 g/dL Normal 6.4-8.3 [facility] Comment on above: Performed By: #### C DP, BMP #### [facility] [address] [place] [address] Livestock Handler: Ramon Hussein MD Sodium [Moles/Vol] 142 mmol/L Normal 135-144 [facility] Comment on above: Performed By: #### C DP, BMP #### [facility] [address] [place] [address] Livestock Handler: Ramon Hussein MD Urea nitrogen [Mass/Vol] 24 mg/dL High 8-23 [facility] Comment on above: Performed By: #### C DP, BMP #### [facility] [address] [place] [address] Livestock Handler: Ramon Hussein MD Creatine Kinaseon 04-16-2023 CK [Catalytic activity/Vol] 119 U/L Normal 26-192 [facility] Comment on above: Performed By: #### C DP, BMP #### [facility] [address] [place] [address] Livestock Handler: Ramon Hussein MD Lactic Acidon 04-16-2023 Lactic Acid,Whole Bl 1.1 mmol/L Normal 0.7-2.1 [facility] Comment on above: Performed By: #### C DP, BMP #### [facility] [address] [place] [address] Livestock Handler: Ramon Hussein MD Lipid Profileon 04-16-2023 Cholesterol [Mass/Vol] 156 mg/dL Normal <200 [facility] Comment on above: Result Comment: Cholesterol Guidelines: <200 Desirable 200-240 Borderline >240 Undesirable Performed By: #### C DP, BMP #### [facility] [address] [place] [address] Livestock Handler: Ramon Hussein MD Cholesterol in HDL [Mass/Vol] 40 mg/dL Low >40 [facility] Comment on above: Result Comment: HDL Guidelines: <40 Undesirable 40-59 Borderline >59 Desirable Performed By: #### C DP, BMP #### [facility] [address] [place] [address] Livestock Handler: Ramon Hussein MD Cholesterol in LDL [Mass/Vol] 94 mg/dL Normal 0-130 [facility] Comment on above: Result Comment: LDL Guidelines: <100 Desirable 100-129 Near to/above Desirable 130-159 Borderline >159 Undesirable Direct (measured) LDL and calculated LDL are not interchangeable tests. Performed By: #### C DP, BMP #### [facility] [address] [place] [address] Livestock Handler: Ramon Hussein MD Cholesterol.total/ Cholesterol in HDL [Mass ratio] 3.9 {ratio} Normal <5 [facility] Comment on above: Performed By: #### C DP, BMP #### [address] [facility] [address] [place] [address] Livestock Handler: Ramon Hussein MD Triglyceride [Mass/Vol] 111 mg/dL Normal <150 [facility] Comment on above: Result Comment: Triglyceride Guidelines: <150 Desirable 150-199 Borderline 200-499 High >499 Very high Based on AHA Guidelines for fasting triglyceride, May 2012. Performed By: #### C DP, BMP #### [facility] [address] [place] [address] Livestock Handler: Ramon Hussein MD MRA HEAD WO CONTRASTon 04-16 MRA HEAD WO CONTRAST EXAMINATION: MRI OF THE BRAIN WITHOUT CONTRAST AND MRA HEAD WITHOUT CONTRAST 04/16/2023 12:16 pm TECHNIQUE: Multiplanar multisequence MRI of the brain was performed without the administration of intravenous contrast. MRA of the head was performed utilizing [id number] imaging with MIP images. No intravenous contrast [...] Prakash Trujillo MD 04/16/23 Final result Normal [facility] MRI BRAIN WO CONTRASTon MRI BRAIN WO CONTRAST EXAMINATION: MRI OF THE BRAIN WITHOUT CONTRAST AND MRA HEAD WITHOUT CONTRAST 04/16/2023 12:16 pm TECHNIQUE: Multiplanar multisequence MRI of the brain was performed without the administration of intravenous contrast. MRA of the head was performed utilizing [id number] imaging with MIP images. No intravenous contrast [...] Prakash Trujillo MD 04/16/23 Final result Normal [facility] MRV HEAD WO CONTRASTon 04-16 MRV HEAD [...] Angelito Mora MD 04/16/23 Final result Normal [facility] Myoglobinon 04-16-2023 Myoglobin [Mass/Vol] 136 ng/mL High 25-58 [facility] Comment on above: Performed By: #### C DP, BMP #### [facility] [address] [place], [place] [id number] Livestock Handler: Ramon Hussein MD TSH w/reflex to FT4on 2022 Thyroid Stim. Horm. 1.75 uIU/mL Normal 0.30-5.00 [facility] Comment on above: Performed By: #### C DP, BMP #### [facility] [address] [place] [address] [phone] Livestock Handler: Ramon Hussein MD Troponinon 04-16-2023 Troponin, High Sens 18 ng/L High 0-14 [facility] Comment on above: Result Comment: High Sensitivity Troponin values cannot be compared with other Troponin methodologies. Performed By: #### C DP, BMP #### [address] [address] Livestock Handler: Ramon Hussein MD Troponin, High Sens 17 ng/L High 0-14 [facility] Comment on above: Result Comment: High Sensitivity Troponin values cannot be compared with other Troponin methodologies. Performed By: #### C DP, BMP #### [address] [address] Livestock Handler: Ramon Hussein MD UA w/Reflex Cultureon 2022 Bilirubin, SemiQt,Ur Negative Normal NEG [facility] Comment on above: Performed By: #### C DP, BMP #### [address] [address] Livestock Handler: Ramon Hussein MD Blood, Urine MODERATE Abnormal NEG [facility] Comment on above: Performed By: #### C DP, BMP #### [address] [address] Livestock Handler: Ramon Hussein MD Clarity (U) Clear Normal CLEAR [facility] Comment on above: Performed By: #### C DP, BMP #### [address] [address] Livestock Handler: Ramon Hussein MD Color (U) Yellow Normal YEL [facility] Comment on above: Performed By: #### C DP, BMP #### [facility] [employer] [address] [place] [address] Livestock Handler: Ramon Hussein MD Glucose Ql (U) Negative Normal NEG [facility] Comment on above: Performed By: #### C DP, BMP #### [address] [phone] Livestock Handler: Ramon Hussein MD Ketones Ql (U) SMALL Abnormal NEG [facility] Comment on above: Performed By: #### C DP, BMP #### [address] [address] Livestock Handler: Ramon Hussein MD Leukocyte esterase Test strip Ql (U) TRACE Abnormal NEG [facility] Comment on above: Performed By: #### C DP, BMP #### [address] [address] Livestock Handler: Ramon Hussein MD Nitrite,Ur Negative Normal NEG [facility] Comment on above: Performed By: #### C DP, BMP #### [facility] [employer] [address] [place] [address] Livestock Handler: Ramon Hussein MD PH,Ur 6.5 Normal 5.0-8.0 [facility] Comment on above: Performed By: #### C DP, BMP #### [address] [address] Livestock Handler: Ramon Hussein MD Protein Ql (U) 3+ mg/dL Abnormal NEG [facility] Comment on above: Performed By: #### C DP, BMP #### [address] [address] Livestock Handler: Ramon Hussein MD Spec. [place],Ur 1.012 Normal 1.005-1.030 [facility] Comment on above: Performed By: #### C DP, BMP #### [facility] [employer] [address] [place] [address] Livestock Handler: Ramon Hussein MD Urobilinogen,Ur Normal Normal 0.0-1.0 [facility] Comment on above: Performed By: #### C DP, BMP #### [address] [address] Livestock Handler: Ramon Hussein MD US RENAL COMPLETEon 04-16-20 [...] Johnnie Ramsey MD 04/16/23 Final result Normal [facility] Urinalysis,Microon 3 Casts 2 TO 5 Normal 0-2 [facility] Comment on above: Result Comment: HYAL INE Performed By: #### C DP, BMP #### [facility] [address] [place] [address] Livestock Handler: Ramon Hussein MD Epithelial cells LM Ql (Urine sed) 2 TO 5 Normal 0-5 [facility] Comment on above: Performed By: #### C DP, BMP #### [facility] [address] [place] [address] Livestock Handler: Ramon Hussein MD Urine RBC's 20 TO 50 Normal 02 [facility] Comment on above: Performed By: #### C DP, BMP #### [facility] [address] [place] [address] Livestock Handler: Ramon Hussein MD Urine WBC's 5 TO 10 Normal 05 [facility] Comment on above: Performed By: #### C DP, BMP #### [facility] [address] [place] [address] Livestock Handler: Ramon Hussein MD PTH INTACTon 12-17-2022 PTH, Intact 69 pg/mL Critically high 15-65 [facility] Comment on above: Performed By: #### F ERR, VITAD, FETIBC #### [facility] [address] [place] [address] Dr. Catarino Curran FERRITINon 12-16-2022 Ferritin [Mass/Vol] 72.0 ng/mL Normal 8.0-252.0 [facility] Comment on above: Performed By: #### F ERR, VITAD, FETIBC #### [facility] [address] [place] [address] Dr. Catarino Curran HEMOGRAM AND PLATELon 2022 Hematocrit (Bld) [Volume fraction] 40.8 % Normal 36.0-48.0 [facility] Comment on above: Performed By: #### H H #### [facility] [address] [place] [address] Dr. Catarino Curran Hemoglobin (Bld) [Mass/Vol] 13.3 g/dL Normal 12.0-16.0 [facility] Comment on above: Performed By: #### H H #### [facility] [address] [place] [address] Dr. Catarino Curran MCH (RBC) [Entitic mass] 30.6 pg Normal 26.7-34.0 [facility] Comment on above: Performed By: #### H H #### [facility] [address] [place] [address] Dr. Catarino Curran MCHC (RBC) [Mass/Vol] 32.6 g/dL Normal 29.9-35.2 [facility] Comment on above: Performed By: #### H H #### [facility] [address] [place] [address] Dr. Catarino Curran MCV (RBC) [Entitic vol] 94.0 fL Normal 81.0-99.0 [facility] Comment on above: Performed By: #### H H #### [facility] [address] [place] [address] Dr. Catarino Curran PLT 277 103/ul Normal 150-450 [facility] Comment on above: Performed By: #### H H #### [facility] [address] [place] [address] Dr. Catarino Curran RBC 4.34 106/ul Normal 4.20-5.40 [facility] Comment on above: Performed By: #### H H #### [facility] [address] [place] [address] Dr. Catarino Curran WBC 9.0 103/ul Normal 4.0-11.0 [facility] Comment on above: Performed By: #### H H #### [facility] [address] [place] [address] Dr. Catarino Curran IRON AND TIBCon 12-16-2022 % SATURATION 27.5 % Normal [facility] Comment on above: Performed By: #### F ERR, VITAD, FETIBC #### [facility] [address] [place] [address] Dr. Catarino Curran Iron [Mass/Vol] 86.0 ug/dL Normal 50.0-170.0 [facility] Comment on above: Performed By: #### F ERR, VITAD, FETIBC #### [facility] [address] [place] [address] Dr. Catarino Curran TIBC DIRECT 313.0 ug/dL Normal 250.0-450.0 [facility] Comment on above: Performed By: #### F ERR, VITAD, FETIBC #### [facility] [address] [place] [address] Dr. Catarino Curran MAGNESIUMon 12-16-2022 Magnesium [Mass/Vol] 2.1 mg/dL Normal 1.8-2.4 [facility] Comment on above: Performed By: #### F ERR, VITAD, FETIBC #### [facility] [address] [place] [address] Dr. Catarino Curran RENAL FUNCTION PANELon 12-16 Albumin [Mass/Vol] 3.2 g/dL Critically low 3.4-5.0 [facility] Comment on above: Performed By: #### F ERR, VITAD, FETIBC #### [facility] [address] [place] [address] Dr. Catarino Curran Calcium [Mass/Vol] 8.8 mg/dL Normal 8.5-10.1 [facility] Comment on above: Performed By: #### F ERR, VITAD, FETIBC #### [facility] [address] [address] [address] Catarino Curran Chloride [Moles/Vol] 104 mmol/L Normal 98-107 [facility] Comment on above: Performed By: #### F ERR, VITAD, FETIBC #### [facility] [address] [address] [address] Catarino Curran CO2 [Moles/Vol] 30.4 mmol/L Normal 21.0-32.0 [facility] Comment on above: Performed By: #### F ERR, VITAD, FETIBC #### [facility] [address] [address] [address] Catarino Curran Creatinine [Mass/Vol] 2.07 mg/dL Critically high 0.55-1.02 [facility] Comment on above: Performed By: #### F ERR, VITAD, FETIBC #### [facility] [address] [address] [address] Catarino Curran EGFR-AF DOMINICAN 29 mL/min/1.73m2 Critically low >=60 [facility] Comment on above: Performed By: #### F ERR, VITAD, FETIBC #### [facility] [address] [address] [address] Catarino Curran EGFR-NON AF DOMINICAN 24 mL/min/1.73m2 Critically low >=60 [facility] Comment on above: Performed By: #### F ERR, VITAD, FETIBC #### [facility] [address] [address] [address] Catarino Curran Glucose [Mass/Vol] 85 mg/dL Normal 74-106 [facility] Comment on above: Performed By: #### F ERR, VITAD, FETIBC #### [facility] [address] [address] [address] Catarino Curran Phosphate [Mass/Vol] 3.4 mg/dL Normal 2.6-4.7 [facility] Comment on above: Performed By: #### F ERR, VITAD, FETIBC #### [facility] [address] [address] [address] Catarino Curran Potassium [Moles/Vol] 3.7 mmol/L Normal 3.5-5.1 [facility] Comment on above: Performed By: #### F ERR, VITAD, FETIBC #### [facility] [address] [address] [address] Catarino Curran Sodium [Moles/Vol] 139 mmol/L Normal 136-145 [facility] Comment on above: Performed By: #### F ERR, VITAD, FETIBC #### [facility] [address] [place] [address] Dr. Catarino Curran Urea nitrogen [Mass/Vol] 21.0 mg/dL Critically high 7.0-18.0 [facility] Comment on above: Performed By: #### F ERR, VITAD, FETIBC #### [facility] [address] [place] [address] Dr. Catarino Curran UA RANDOM W/MICROSCOPICon BACTERIA MODERATE Abnormal NONE SEEN [facility] Comment on above: Performed By: #### F ERR, VITAD, FETIBC #### [facility] [address] [place] [address] Dr. Catarino Curran Bilirubin Ql (U) Negative Normal NEGATIVE [facility] Comment on above: Performed By: #### F ERR, VITAD, FETIBC #### [facility] [address] [place] [address] Dr. Catarino Curran CAST NONE SEEN Normal NONE SEEN [facility] Comment on above: Performed By: #### F ERR, VITAD, FETIBC #### [facility] [address] [place] [address] Dr. Catarino Curran Clarity (U) CLEAR Normal CLEAR [facility] Comment on above: Performed By: #### F ERR, VITAD, FETIBC #### [facility] [address] [place] [address] Dr. Catarino Curran Color (U) LT. YELLOW Normal YELLOW [facility] Comment on above: Performed By: #### F ERR, VITAD, FETIBC #### [facility] [address] [address] [address] Catarino Curran Crystals LM Nom (Urine sed) NONE SEEN Normal NONE SEEN [facility] Comment on above: Performed By: #### F ERR, VITAD, FETIBC #### [facility] [address] [address] [address] Catarino Curran Epithelial cells LM Ql (Urine sed) FEW Abnormal NONE SEEN /RARE [facility] Comment on above: Performed By: #### F ERR, VITAD, FETIBC #### [facility] [address] [place] [address] Dr. Catarino Curran Glucose Ql (U) Negative Normal NEGATIVE [facility] Comment on above: Performed By: #### F ERR, VITAD, FETIBC #### [facility] [address] [place] [address] Dr. Catarino Curran Hemoglobin Ql (U) TRACE-INTACT Abnormal NEGATIVE [facility] Comment on above: Performed By: #### F ERR, VITAD, FETIBC #### [facility] [address] [place] [address] Dr. Catarino Curran Ketones Ql (U) Negative Normal NEGATIVE [facility] Comment on above: Performed By: #### F ERR, VITAD, FETIBC #### [facility] [address] [address] [address] Catarino Curran LEUKOCYTES SMALL Abnormal NEGATIVE [facility] Comment on above: Performed By: #### F ERR, VITAD, FETIBC #### [facility] [address] [address] [address] Catarino Curran MUCOUS NONE SEEN Normal NONE SEEN [facility] Comment on above: Performed By: #### F ERR, VITAD, FETIBC #### [facility] [address] [place] [address] Dr. Catarino Curran Nitrite Ql (U) Positive Abnormal NEGATIVE [facility] Comment on above: Performed By: #### F ERR, VITAD, FETIBC #### [facility] [address] [place] [address] Dr. Catarino Curran pH (U) 5.5 [pH] Normal 5-9 [facility] Comment on above: Performed By: #### F ERR, VITAD, FETIBC #### [facility] [address] [place] [address] Dr. Catarino Curran RBC 0-2 Normal 0-2 [facility] Comment on above: Performed By: #### F ERR, VITAD, FETIBC #### [facility] [address] [place] [address] Dr. Catarino Curran SPEC GRAVITY 1.025 Normal 1.005-<=1.02 5 [facility] Comment on above: Performed By: #### F ERR, VITAD, FETIBC #### [facility] [address] [place] [address] Dr. Catarino Curran UA PROTEIN >300 Abnormal NEGATIVE/ TRACE [facility] Comment on above: Performed By: #### F ERR, VITAD, FETIBC #### [facility] [address] [place] [address] Dr. Catarino Curran Urobilinogen Qn (U) 0.2 {Jake'U}/dL Normal 0.2 - 1.0 [facility] Comment on above: Performed By: #### F ERR, VITAD, FETIBC #### [facility] [address] [place] [address] Dr. Catarino Curran WBC 10-20 Abnormal NONE SEEN [facility] Comment on above: Performed By: #### F ERR, VITAD, FETIBC #### [facility] [address] [place] [address] Dr. Catarino Curran URIC ACID SERUMon 12-16-2022 Urate [Mass/Vol] 7.1 mg/dL Critically high 2.6-6.0 [facility] Comment on above: Performed By: #### F ERR, VITAD, FETIBC #### [facility] [address] [place] [address] Dr. Catarino Curran URINE T PROTEIN CREAT RATIOo n 12-16-2022 Protein (U) [Mass/Vol] 216.7 mg/dL Critically high <=12.0 [facility] Comment on above: Performed By: #### H H #### [facility] [address] [place] [address] Dr. Catarino Curran UR PROT CREAT RAT 1.35 Normal [facility] Comment on above: Performed By: #### H H #### [facility] [address] [address] [address] Catarino Curran URINE CREAT 160.63 mg/dL Normal 20.00-300.00 [facility] Comment on above: Performed By: #### H H #### [facility] [address] [place] [address] Dr. Catarino Curran VITAMIN D 25 OHon 12-16-2022 VIT D 25-OH 15.0 ng/mL Normal [facility] Comment on above: Performed By: #### F ERR, VITAD, FETIBC #### [facility] [address] [place] [address] Dr. Catarino Curran VIT D RANGES SEE BELOW Normal [facility] Comment on above: Result Comment: <20 ng/mL Vit D deficient 20 - <30 ng/mL Vit D insufficient 30 - 100 ng/mL Vit D sufficient >100 ng/mL Potential Toxicity Performed By: #### F ERR, VITAD, FETIBC #### [facility] [address] [place] [address] Dr. Catarino Curran FREE T3on 09-16-2022 FREE T3 1.93 pg/mlL Critically low 2.18-3.98 [facility] Comment on above: Performed By: #### F ERR, VITAD, FETIBC #### [facility] [address] [place] [address] Dr. Catarino Curran FREE T4on 09-16-2022 Free T4 [Mass/Vol] 1.12 ng/dL Normal 0.76-1.46 [facility] Comment on above: Performed By: #### H H #### [facility] [address] [place] [address] Dr. Catarino Curran TSHon 09-16-2022 TSH 0.389 uIU/mL Normal 0.358-3.740 [facility] Comment on above: Performed By: #### F ERR, JONATHAN, FETIBC #### [facility] [address] [address] [address] Catarino Curran RENAL FUNCTION PANELon 08-17 Albumin [Mass/Vol] 3.2 g/dL Critically low 3.4-5.0 [facility] Comment on above: Performed By: #### H H #### [facility] [address] [address] [address] Catarino Curran Calcium [Mass/Vol] 8.8 mg/dL Normal 8.5-10.1 [facility] Comment on above: Performed By: #### H H #### [facility] [address] [place] [address] Dr. Catarino Curran Chloride [Moles/Vol] 106 mmol/L Normal 98-107 [facility] Comment on above: Performed By: #### H H #### [facility] [address] [address] [address] aCtarino Curran CO2 [Moles/Vol] 29.6 mmol/L Normal 21.0-32.0 [facility] Comment on above: Performed By: #### H H #### [facility] [address] [address] [address] Catarino Curran Creatinine [Mass/Vol] 1.78 mg/dL Critically high 0.55-1.02 [facility] Comment on above: Performed By: #### H H #### [facility] [address] [address] [address] Catarino Curran EGFR-AF DOMINICAN 34 mL/min/1.73m2 Critically low >=60 [facility] Comment on above: Performed By: #### H H #### [facility] [address] [address] [address] Catarino Curran EGFR-NON AF DOMINICAN 28 mL/min/1.73m2 Critically low >=60 [facility] Comment on above: Performed By: #### H H #### [facility] [address] [address] [address] Catarino Curran Glucose [Mass/Vol] 88 mg/dL Normal 74-106 [facility] Comment on above: Performed By: #### H H #### [facility] [address] [address] [address] Catarino Curran Phosphate [Mass/Vol] 3.3 mg/dL Normal 2.6-4.7 [facility] Comment on above: Performed By: #### H H #### [facility] [address] [address] [address] Catarino Curran Potassium [Moles/Vol] 4.0 mmol/L Normal 3.5-5.1 [facility] Comment on above: Performed By: #### H H #### [facility] [address] [address] [address] Catarino Curran Sodium [Moles/Vol] 143 mmol/L Normal 136-145 [facility] Comment on above: Performed By: #### H H #### [facility] [address] [address] [address] Catarino Curran Urea nitrogen [Mass/Vol] 21.0 mg/dL Critically high 7.0-18.0 [facility] Comment on above: Performed By: #### H H #### [facility] [address] [address] [address] Catarino Curran UA RANDOM W/MICROSCOPICon BACTERIA SMALL Abnormal NONE SEEN [facility] Comment on above: Performed By: #### F ERR, VITAD, FETIBC #### [facility] [address] [address] [address] Catarino Curran Bilirubin Ql (U) Negative Normal NEGATIVE [facility] Comment on above: Performed By: #### F ERR, VITAD, FETIBC #### [facility] [address] [address] [address] Catarino Curran CAST NONE SEEN Normal NONE SEEN [facility] Comment on above: Performed By: #### F ERR, VITAD, FETIBC #### [facility] [address] [address] [address] Catarino Curran Clarity (U) CLEAR Normal CLEAR [facility] Comment on above: Performed By: #### F ERR, VITAD, FETIBC #### [facility] [address] [address] [address] Catarino Curran Color (U) LT. YELLOW Normal YELLOW [facility] Comment on above: Performed By: #### F ERR, VITAD, FETIBC #### [facility] [address] [address] [address] Catarino Curran Crystals LM Nom (Urine sed) NONE SEEN Normal NONE SEEN [facility] Comment on above: Performed By: #### F ERR, VITAD, FETIBC #### [facility] [address] [place] [address] Dr. Catarino Curran Epithelial cells LM Ql (Urine sed) RARE Normal NONE SEEN /RARE [facility] Comment on above: Performed By: #### F ERR, VITAD, FETIBC #### [facility] [address] [place] [address] Dr. Catarino Curran Glucose Ql (U) Negative Normal NEGATIVE [facility] Comment on above: Performed By: #### F ERR, VITAD, FETIBC #### [facility] [address] [place] [address] Dr. Catarino Curran Hemoglobin Ql (U) SMALL Abnormal NEGATIVE [facility] Comment on above: Performed By: #### F ERR, VITAD, FETIBC #### [facility] [address] [address] [address] Catarino Curran Ketones Ql (U) Negative Normal NEGATIVE [facility] Comment on above: Performed By: #### F ERR, VITAD, FETIBC #### [facility] [address] [place] [address] Dr. Catarino Curran LEUKOCYTES SMALL Abnormal NEGATIVE [facility] Comment on above: Performed By: #### F ERR, VITAD, FETIBC #### [facility] [address] [address] [address] Catarino Curran MUCOUS NONE SEEN Normal NONE SEEN [facility] Comment on above: Performed By: #### F ERR, VITAD, FETIBC #### [facility] [address] [address] [address] Catarino Curran Nitrite Ql (U) Positive Abnormal NEGATIVE [facility] Comment on above: Performed By: #### F ERR, VITAD, FETIBC #### [facility] [address] [address] [address] Catarino Curran pH (U) 5.0 [pH] Normal 5-9 [facility] Comment on above: Performed By: #### F ERR, VITAD, FETIBC #### [facility] [address] [address] [address] Catarino Curran RBC 0-2 Normal 0-2 [facility] Comment on above: Performed By: #### F ERR, VITAD, FETIBC #### [facility] [address] [place] [address] Dr. Catarino Curran SPEC GRAVITY 1.025 Normal 1.005-<=1.02 5 [facility] Comment on above: Performed By: #### F ERR, VITAD, FETIBC #### [facility] [address] [address] [address] Catarino Curran UA PROTEIN 100 mg/dl Abnormal NEGATIVE/ TRACE [facility] Comment on above: Performed By: #### F ERR, VITAD, FETIBC #### [facility] [address] [address] [address] Catarino Curran Urobilinogen Qn (U) 0.2 {Jake'U}/dL Normal 0.2 - 1.0 [facility] Comment on above: Performed By: #### F ERR, VITAD, FETIBC #### [facility] [address] [address] [address] Catarino Curran WBC 10-20 Abnormal NONE SEEN [facility] Comment on above: Performed By: #### F ERR, VITAD, FETIBC #### [facility] [address] [address] [address] Catarino Curran URINE T PROTEIN CREAT RATIOo n 08-17-2022 Protein (U) [Mass/Vol] 157.3 mg/dL Critically high <=12.0 [facility] Comment on above: Performed By: #### F ERR, VITAD, FETIBC #### [facility] [address] [place] [address] Dr. Catarino Curran UR PROT CREAT RAT 1.07 Normal [facility] Comment on above: Performed By: #### F ERR, VITAD, FETIBC #### [facility] [address] [address] [address] Catarino Curran URINE CREAT 147.50 mg/dL Normal 20.00-300.00 [facility] Comment on above: Performed By: #### F ERR, VITAD, FETIBC #### [facility] [address] [place] [address] Dr. Catarino Curran FERRITINon 05-10-2022 Ferritin [Mass/Vol] 147.0 ng/mL Normal 8.0-252.0 [facility] Comment on above: Performed By: #### H H #### [facility] [address] [place] [address] Dr. Catarino Curran HEMOGRAM AND PLATELon 2021 Hematocrit (Bld) [Volume fraction] 38.9 % Normal 36.0-48.0 [facility] Comment on above: Performed By: #### H H #### [facility] [address] [place] [address] Dr. Catarino Curran Hemoglobin (Bld) [Mass/Vol] 12.8 g/dL Normal 12.0-16.0 [facility] Comment on above: Performed By: #### H H #### [facility] [address] [place] [address] Dr. Catarino Curran MCH (RBC) [Entitic mass] 33.9 pg Normal 26.7-34.0 [facility] Comment on above: Performed By: #### H H #### [facility] [address] [place] [address] Dr. Catarino Curran MCHC (RBC) [Mass/Vol] 32.9 g/dL Normal 29.9-35.2 [facility] Comment on above: Performed By: #### H H #### [facility] [address] [address] [address] Catarino Curran MCV (RBC) [Entitic vol] 102.9 fL Critically high 81.0-99.0 [facility] Comment on above: Performed By: #### H H #### [facility] [address] [address] [address] Catarino Curran PLT 345 103/ul Normal 150-450 [facility] Comment on above: Performed By: #### H H #### [facility] [address] [address] [address] Catarino Curran RBC 3.78 106/ul Critically low 4.20-5.[address] [facility] Comment on above: Performed By: #### H H #### [facility] [address] [address] [address] Catarino Curran WBC 7.9 103/ul Normal 4.0-11.0 [facility] Comment on above: Performed By: #### H H #### [facility] [address] [address] [address] Catarino Curran IRON AND TIBCon 05-10-2022 % SATURATION 25.8 % Normal [facility] Comment on above: Performed By: #### F ERR, VITAD, FETIBC #### [facility] [address] [address] [address] Catarino Curran Iron [Mass/Vol] 71.0 ug/dL Normal 50.0-170.0 [facility] Comment on above: Performed By: #### F ERR, VITAD, FETIBC #### [facility] [address] [address] [address] Catarino Curran TIBC DIRECT 275.0 ug/dL Normal 250.0-450.0 [facility] Comment on above: Performed By: #### F ERR, VITAD, FETIBC #### [facility] [address] [address] [address] Catarino Curran PROF 14(COMP METB)on 022 Albumin [Mass/Vol] 3.8 g/dL Normal 3.4-5.0 [facility] Comment on above: Performed By: #### F ERRJONATHAN, FETIBC #### [facility] [address] [place] [address] Dr. Catarino Curran Albumin/Globulin [Mass ratio] 0.9 {ratio} Normal [facility] Comment on above: Performed By: #### F ERR VITAD, FETIBC #### [facility] [address] [place] [address] Dr. Catarino Curran ALP [Catalytic activity/Vol] 96 U/L Normal 46-116 [facility] Comment on above: Performed By: #### F ERR VITJUJU, FETIBC #### [facility] [address] [place] [address] Dr. Catarino Curran ALT [Catalytic activity/Vol] 14 U/L Normal 14-59 [facility] Comment on above: Performed By: #### F ERR VITAD, FETIBC #### [facility] [address] [place] [address] Dr. Catarino Curran Anion gap [Moles/Vol] 9.9 mmol/L Normal [facility] Comment on above: Performed By: #### F ERR VITJUJU, FETIBC #### [facility] [address] [place] [address] Dr. Catarino Curran AST [Catalytic activity/Vol] 11 U/L Critically low 15-37 [facility] Comment on above: Performed By: #### F ERR, VITAD, FETIBC #### [facility] [address] [place] [address] Dr. Catarino Curran Bilirubin [Mass/Vol] 0.7 mg/dL Normal 0.2-1.0 [facility] Comment on above: Performed By: #### F ERR, VITAD, FETIBC #### [facility] [address] [place] [address] Dr. Catarino Curran Calcium [Mass/Vol] 9.2 mg/dL Normal 8.5-10.1 [facility] Comment on above: Performed By: #### F ERR, VITAD, FETIBC #### [facility] [address] [place] [address] Dr. Catarino Curran Chloride [Moles/Vol] 104 mmol/L Normal 98-107 [facility] Comment on above: Performed By: #### F ERR, VITAD, FETIBC #### [facility] [address] [place] [address] Dr. Catarino Curran CO2 [Moles/Vol] 29.5 mmol/L Normal 21.0-32.0 [facility] Comment on above: Performed By: #### F ERR, VITAD, FETIBC #### [facility] [address] [place] [address] Dr. Catarino Curran Creatinine [Mass/Vol] 1.79 mg/dL Critically high 0.55-1.02 [facility] Comment on above: Performed By: #### F ERR, VITAD, FETIBC #### [facility] [address] [place] [address] Dr. Catarino Curran EGFR-AF DOMINICAN 34 mL/min/1.73m2 Critically low >=60 [facility] Comment on above: Performed By: #### F ERR, VITAD, FETIBC #### [facility] [address] [place] [address] Dr. Catarino Curran EGFR-NON AF DOMINICAN 28 mL/min/1.73m2 Critically low >=60 [facility] Comment on above: Performed By: #### F ERR, VITAD, FETIBC #### [facility] [address] [place] [address] Dr. Catarino Curran Globulin (S) [Mass/Vol] 4.1 g/dL Normal [facility] Comment on above: Performed By: #### F ERR, VITAD, FETIBC #### [facility] [address] [place] [address] Dr. Catarino Curran Glucose [Mass/Vol] 98 mg/dL Normal 74-106 [facility] Comment on above: Performed By: #### F ERR, VITAD, FETIBC #### [facility] [address] [address] [address] Catarino Curran Potassium [Moles/Vol] 3.4 mmol/L Critically low 3.5-5.1 [facility] Comment on above: Performed By: #### F ERR, VITAD, FETIBC #### [facility] [address] [place] [address] Dr. Catarino Curran Protein [Mass/Vol] 7.9 g/dL Normal 6.4-8.2 [facility] Comment on above: Performed By: #### F ERR, VITAD, FETIBC #### [facility] [address] [place] [address] Dr. Catarino Curran Sodium [Moles/Vol] 140 mmol/L Normal 136-145 [facility] Comment on above: Performed By: #### F ERR, VITAD, FETIBC #### [facility] [address] [place] [address] Dr. Catarino Curran Urea nitrogen [Mass/Vol] 20.0 mg/dL Critically high 7.0-18.0 [facility] Comment on above: Performed By: #### F ERR, VITAD, FETIBC #### [facility] [address] [place] [address] Dr. Catarino Curran Urea nitrogen/Creatinin e [Mass ratio] 11.2 mg/mg Normal [facility] Comment on above: Performed By: #### F ERR, VITAD, FETIBC #### [facility] [address] [place] [address] Dr. Catarino Curran UA RANDOM W/MICROSCOPICon BACTERIA NONE SEEN Normal NONE SEEN [facility] Comment on above: Performed By: #### U AMIC #### [facility] [address] [place] [address] Dr. Catarino Curran Bilirubin Ql (U) Negative Normal NEGATIVE [facility] Comment on above: Performed By: #### U AMIC #### [facility] [address] [place] [address] Dr. Catarino Curran CAST NONE SEEN Normal NONE SEEN [facility] Comment on above: Performed By: #### U AMIC #### [facility] [address] [address] [address] Catarino Curran Clarity (U) CLEAR Normal CLEAR [facility] Comment on above: Performed By: #### U AMIC #### [facility] [address] [place] [address] Dr. Catarino Curran Color (U) LT. YELLOW Normal YELLOW [facility] Comment on above: Performed By: #### U AMIC #### [facility] [address] [address] [address] Catarino Curran Crystals LM Nom (Urine sed) NONE SEEN Normal NONE SEEN [facility] Comment on above: Performed By: #### U AMIC #### [facility] [address] [place] [address] Dr. Catarino Curran Epithelial cells LM Ql (Urine sed) MODERATE Abnormal NONE SEEN /RARE [facility] Comment on above: Performed By: #### U AMIC #### [facility] [address] [place] [address] Dr. Catarino Curran Glucose Ql (U) Negative Normal NEGATIVE [facility] Comment on above: Performed By: #### U AMIC #### [facility] [address] [place] [address] Dr. Catarino Curran Hemoglobin Ql (U) TRACE-INTACT Abnormal NEGATIVE [facility] Comment on above: Performed By: #### U AMIC #### [facility] [address] [place] [address] Dr. Catarino Curran Ketones Ql (U) Negative Normal NEGATIVE [facility] Comment on above: Performed By: #### U AMIC #### [facility] [address] [place] [address] Dr. Catarino Curran LEUKOCYTES LARGE Abnormal NEGATIVE [facility] Comment on above: Performed By: #### U AMIC #### [facility] [address] [place] [address] Dr. Catarino Curran MUCOUS NONE SEEN Normal NONE SEEN [facility] Comment on above: Performed By: #### U AMIC #### [facility] [address] [place] [address] Dr. Catarino Curran Nitrite Ql (U) Negative Normal NEGATIVE [facility] Comment on above: Performed By: #### U AMIC #### [facility] [address] [address] [address] Catarino Curran pH (U) 5.5 [pH] Normal 5-9 [facility] Comment on above: Performed By: #### U AMIC #### [facility] [address] [address] [address] Catarino Curran RBC 2-5 Abnormal 0-2 [facility] Comment on above: Performed By: #### U AMIC #### [facility] [address] [address] [address] Catarino Curran SPEC GRAVITY 1.020 Normal 1.005-<=1.02 5 [facility] Comment on above: Performed By: #### U AMIC #### [facility] [address] [address] [address] Catarino Curran UA PROTEIN 30 mg/dl Abnormal NEGATIVE/ TRACE [facility] Comment on above: Performed By: #### U AMIC #### [facility] [address] [address] [address] Catarino Curran Urobilinogen Qn (U) 0.2 {Jake'U}/dL Normal 0.2 - 1.0 [facility] Comment on above: Performed By: #### U AMIC #### [facility] [address] [address] [address] Catarino Curran WBC 10-20 Abnormal NONE SEEN [facility] Comment on above: Performed By: #### U AMIC #### [facility] [address] [address] [address] Catarino Curran URINE T PROTEIN CREAT RATIOo n 05-10-2022 Protein (U) [Mass/Vol] 69.7 mg/dL Critically high <=12.0 [facility] Comment on above: Performed By: #### F ERR, VITAD, FETIBC #### [facility] [address] [address] [address] Catarino Curran UR PROT CREAT RAT 0.63 Normal [facility] Comment on above: Performed By: #### F ERR, VITAD, FETIBC #### [facility] [address] [place] [address] Dr. Catarino Curran URINE CREAT 110.97 mg/dL Normal 20.00-300.00 [facility] Comment on above: Performed By: #### F ERR, VITAD, FETIBC #### [facility] [address] [place] [address] Dr. Catarino Curran PTH INTACTon 01-19-2022 PTH, Intact 46 pg/mL Normal 15-65 [facility] Comment on above: Performed By: #### H H #### [facility] [address] [place] [address] Dr. Catarino Curran FERRITINon 01-18-2022 Ferritin [Mass/Vol] 177.0 ng/mL Normal 8.0-252.0 [facility] Comment on above: Performed By: #### H H #### [facility] [address] [place] [address] Dr. Catarino Curran HEMOGRAM AND PLATELon 2021 Hematocrit (Bld) [Volume fraction] 37.0 % Normal 36.0-48.0 [facility] Comment on above: Performed By: #### H H #### [facility] [address] [place] [address] Dr. Catarino Curran Hemoglobin (Bld) [Mass/Vol] 11.9 g/dL Critically low 12.0-16.0 [facility] Comment on above: Performed By: #### H H #### [facility] [address] [place] [address] Dr. Catarino Curran MCH (RBC) [Entitic mass] 32.0 pg Normal 26.7-34.0 [facility] Comment on above: Performed By: #### H H #### [facility] [address] [place] [address] Dr. Catarino Curran MCHC (RBC) [Mass/Vol] 32.2 g/dL Normal 29.9-35.2 [facility] Comment on above: Performed By: #### H H #### [facility] [address] [address] [address] Catarino Curran MCV (RBC) [Entitic vol] 99.5 fL Critically high 81.0-99.0 [facility] Comment on above: Performed By: #### H H #### [facility] [address] [address] [address] Catarino Curran PLT 366 103/ul Normal 150-450 [facility] Comment on above: Performed By: #### H H #### [facility] [address] [address] [address] Catarino Curran RBC 3.72 106/ul Critically low 4.20-5.40 [facility] Comment on above: Performed By: #### H H #### [facility] [address] [place] [address] Dr. Catarino Curran WBC 6.0 103/ul Normal 4.0-11.0 [facility] Comment on above: Performed By: #### H H #### [facility] [address] [address] [address] Catarino Curran IRON AND TIBCon 01-18-2022 % SATURATION 27.0 % Normal [facility] Comment on above: Performed By: #### H H #### [facility] [address] [place] [address] Dr. Catarino Curran Iron [Mass/Vol] 69.0 ug/dL Normal 50.0-170.0 [facility] Comment on above: Performed By: #### H H #### [facility] [address] [place] [address] Dr. Catarino Curran TIBC DIRECT 256.0 ug/dL Normal 250.0-450.0 [facility] Comment on above: Performed By: #### H H #### [facility] [address] [place] [address] Dr. Catarino Curran LIPID PROFILEon 01-18-2022 CHOL-HDL RATIO NORM SEE BELOW Normal [facility] Comment on above: Result Comment: 3.3 - 4.4 LOW RISK 4.4 - 7.1 AVERAGE RISK 7.1 - 11.0 MODERATE RISK >11.0 HIGH RISK Performed By: #### L IPID #### [facility] [address] [address] [address] Catarino Curran Cholesterol [Mass/Vol] 158 mg/dL Normal <=200 [facility] Comment on above: Performed By: #### L IPID #### [facility] [address] [address] [address] Catarino Curran Cholesterol in HDL [Mass/Vol] 43 mg/dL Normal 40-60 [facility] Comment on above: Performed By: #### L IPID #### [facility] [address] [address] [address] Catarino Curran Cholesterol in LDL [Mass/Vol] 92.2 mg/dL Normal [facility] Comment on above: Performed By: #### L IPID #### [facility] [address] [address] [address] Catarino Curran Cholesterol.total/ Cholesterol in HDL [Mass ratio] 3.7 {ratio} Normal [facility] Comment on above: Performed By: #### L IPID #### [facility] [address] [address] [address] Catarino Curran HDL NORMAL > or = 60 mg/dl - LO W CARDIOVASCULAR RISK <40 mg/dl - HIGH CARDIOVASCULAR RISK Normal [facility] Comment on above: Performed By: #### L IPID #### [facility] [address] [address] [address] Catarino Curran LDL CALC NORMAL SEE BELOW Normal [facility] Comment on above: Result Comment: <100 mg/dl OPTIMAL 100 - 129 mg/dl NEAR OR ABOVE OPTIMAL 130 - 159 mg/dl BORDERLINE HIGH 160 - 189 mg/dl HIGH >190 mg/dl VERY HIGH Performed By: #### L IPID #### [facility] [address] [address] [address] Catarino Curran Triglyceride [Mass/Vol] 114 mg/dL Normal <=150 [facility] Comment on above: Performed By: #### L IPID #### [facility] [address] [address] [address] Catarino Curran VLDL CALC 22.8 mg/dL Normal [facility] Comment on above: Performed By: #### L IPID #### [facility] [address] [place] [address] Dr. Catarino Curran PHOSPHORUSon 01-18-2022 Phosphate [Mass/Vol] 3.5 mg/dL Normal 2.6-4.7 [facility] Comment on above: Performed By: #### U LILI, PHOS, CMP #### [facility] [address] [address] [address] Catarino Curran PROF 14(COMP METB)on 022 Albumin [Mass/Vol] 3.4 g/dL Normal 3.4-5.0 [facility] Comment on above: Performed By: #### U LILI, PHOS, CMP #### [facility] [address] [place] [address] Dr. Catarino Curran Albumin/Globulin [Mass ratio] 0.9 {ratio} Normal [facility] Comment on above: Performed By: #### U LILI, PHOS, CMP #### [facility] [address] [place] [address] Dr. Catarino Curran ALP [Catalytic activity/Vol] 99 U/L Normal 46-116 [facility] Comment on above: Performed By: #### U LILI, PHOS, CMP #### [facility] [address] [place] [address] Dr. Catarino Curran ALT [Catalytic activity/Vol] 18 U/L Normal 14-59 [facility] Comment on above: Performed By: #### U LILI, PHOS, CMP #### [facility] [address] [place] [address] Dr. Catarino Curran Anion gap [Moles/Vol] 12.1 mmol/L Normal [facility] Comment on above: Performed By: #### U LILI, PHOS, CMP #### [facility] [address] [place] [address] Dr. Catarino Curran AST [Catalytic activity/Vol] 11 U/L Critically low 15-37 [facility] Comment on above: Performed By: #### U LILI, PHOS, CMP #### [facility] [address] [address] [address] Catarino Curran Bilirubin [Mass/Vol] 0.6 mg/dL Normal 0.2-1.0 [facility] Comment on above: Performed By: #### U LILI, PHOS, CMP #### [facility] [address] [address] [address] Catarino Curran Calcium [Mass/Vol] 9.0 mg/dL Normal 8.5-10.1 [facility] Comment on above: Performed By: #### U LILI, PHOS, CMP #### [facility] [address] [address] [address] Catarino Curran Chloride [Moles/Vol] 104 mmol/L Normal 98-107 [facility] Comment on above: Performed By: #### U LILI, PHOS, CMP #### [facility] [address] [place] [address] Dr. Catarino Curran CO2 [Moles/Vol] 28.6 mmol/L Normal 21.0-32.0 [facility] Comment on above: Performed By: #### U LILI, PHOS, CMP #### [facility] [address] [address] [address] Catarino Curran Creatinine [Mass/Vol] 1.72 mg/dL Critically high 0.55-1.02 [facility] Comment on above: Performed By: #### U LILI, PHOS, CMP #### [facility] [address] [address] [address] Catarino Curran EGFR-AF DOMINICAN 35 mL/min/1.73m2 Critically low >=60 [facility] Comment on above: Performed By: #### U LILI, PHOS, CMP #### [facility] [address] [place] [address] Dr. Catarino Curran EGFR-NON AF DOMINICAN 29 mL/min/1.73m2 Critically low >=60 [facility] Comment on above: Performed By: #### U LILI, PHOS, CMP #### [facility] [address] [address] [address] Catarino Curran Globulin (S) [Mass/Vol] 4.0 g/dL Normal [facility] Comment on above: Performed By: #### U LILI PHOS, CMP #### [facility] [address] [address] [address] Catarino Curran Glucose [Mass/Vol] 92 mg/dL Normal 74-106 [facility] Comment on above: Performed By: #### U LILI PHOS, CMP #### [facility] [address] [address] [address] Catarino Curran Potassium [Moles/Vol] 3.7 mmol/L Normal 3.5-5.1 [facility] Comment on above: Performed By: #### U LILI PHOS, CMP #### [facility] [address] [address] [address] Catarino Curran Protein [Mass/Vol] 7.4 g/dL Normal 6.4-8.2 [facility] Comment on above: Performed By: #### U LILI PHOS, CMP #### [facility] [address] [address] [address] Catarino Curran Sodium [Moles/Vol] 141 mmol/L Normal 136-145 [facility] Comment on above: Performed By: #### U LILI PHOS, CMP #### [facility] [address] [place] [address] Dr. Catarino Curran Urea nitrogen [Mass/Vol] 19.0 mg/dL Critically high 7.0-18.0 [facility] Comment on above: Performed By: #### U LILI PHOS, CMP #### [facility] [address] [address] [address] Catarino Curran Urea nitrogen/Creatinin e [Mass ratio] 11.0 mg/mg Normal [facility] Comment on above: Performed By: #### U LILI PHOS, CMP #### [facility] [address] [place] [address] Dr. Catarino Curran UA RANDOM W/MICROSCOPICon BACTERIA SMALL Abnormal NONE SEEN [facility] Comment on above: Performed By: #### H H #### [facility] [address] [place] [address] Dr. Catarino Curran Bilirubin Ql (U) Negative Normal NEGATIVE [facility] Comment on above: Performed By: #### H H #### [facility] [address] [place] [address] Dr. Catarino Curran CAST NONE SEEN Normal NONE SEEN [facility] Comment on above: Performed By: #### H H #### [facility] [address] [place] [address] Dr. Catarino Curran Clarity (U) CLEAR Normal CLEAR [facility] Comment on above: Performed By: #### H H #### [facility] [address] [place] [address] Dr. Catarino Curran Color (U) LT. YELLOW Normal YELLOW [facility] Comment on above: Performed By: #### H H #### [facility] [address] [place] [address] Dr. Catarino Curran Crystals LM Nom (Urine sed) NONE SEEN Normal NONE SEEN [facility] Comment on above: Performed By: #### H H #### [facility] [address] [place] [address] Dr. Catarino Curran Epithelial cells LM Ql (Urine sed) RARE Normal NONE SEEN /RARE [facility] Comment on above: Performed By: #### H H #### [facility] [address] [place] [address] Dr. Catarino Curran Glucose Ql (U) Negative Normal NEGATIVE [facility] Comment on above: Performed By: #### H H #### [facility] [address] [place] [address] Dr. Catarino Curran Hemoglobin Ql (U) TRACE-INTACT Abnormal NEGATIVE [facility] Comment on above: Performed By: #### H H #### [facility] [address] [place] [address] Dr. Catarino Curran Ketones Ql (U) Negative Normal NEGATIVE [facility] Comment on above: Performed By: #### H H #### [facility] [address] [place] [address] Dr. Catarino Curran LEUKOCYTES SMALL Abnormal NEGATIVE [facility] Comment on above: Performed By: #### H H #### [facility] [address] [place] [address] Dr. Catarino Curran MUCOUS TRACE Abnormal NONE SEEN [facility] Comment on above: Performed By: #### H H #### [facility] [address] [place] [address] Dr. Catarino Curran Nitrite Ql (U) Positive Abnormal NEGATIVE [facility] Comment on above: Performed By: #### H H #### [facility] [address] [place] [address] Dr. Catarino Curran pH (U) 6.0 [pH] Normal 5-9 [facility] Comment on above: Performed By: #### H H #### [facility] [address] [place] [address] Dr. Catarino Curran RBC 0-2 Normal 0-2 [facility] Comment on above: Performed By: #### H H #### [facility] [address] [place] [address] Dr. Catarino Curran SPEC GRAVITY 1.015 Normal 1.005-<=1.02 5 [facility] Comment on above: Performed By: #### H H #### [facility] [address] [place] [address] Dr. Catarino Curran UA PROTEIN Negative Normal NEGATIVE/ TRACE [facility] Comment on above: Performed By: #### H H #### [facility] [address] [place] [address] Dr. Catarino Curran Urobilinogen Qn (U) 0.2 {Jake'U}/dL Normal 0.2 - 1.0 [facility] Comment on above: Performed By: #### H H #### [facility] [address] [place] [address] Dr. Catarino Curran WBC 5-10 Abnormal NONE SEEN [facility] Comment on above: Performed By: #### H H #### [facility] [address] [place] [address] Dr. Catarino Curran URIC ACID SERUMon 01-18-2022 Urate [Mass/Vol] 7.2 mg/dL Critically high 2.6-6.0 [facility] Comment on above: Performed By: #### U LILI, PHOS, CMP #### [facility] [address] [address] [address] Catarino Curran URINE T PROTEIN CREAT RATIOo n 01-18-2022 Protein (U) [Mass/Vol] 26.5 mg/dL Critically high <=12.0 [facility] Comment on above: Performed By: #### F ERR, VITAD, FETIBC #### [facility] [address] [address] [address] Catarino Curran UR PROT CREAT RAT 0.49 Normal [facility] Comment on above: Performed By: #### F ERR, VITAD, FETIBC #### [facility] [address] [place] [address] Dr. Catarino Curran URINE CREAT 54.03 mg/dL Normal 20.00-300.00 [facility] Comment on above: Performed By: #### F ERR, VITAD, FETIBC #### [facility] [address] [address] [address] Catarino Curran VITAMIN D 25 OHon 01-18-2022 VIT D 25-OH 25.4 ng/mL Normal [facility] Comment on above: Performed By: #### H H #### [facility] [address] [place] [address] Dr. Catarino Curran VIT D RANGES SEE BELOW Normal [facility] Comment on above: Result Comment: <20 ng/mL Vit D deficient 20 - <30 ng/mL Vit D insufficient 30 - 100 ng/mL Vit D sufficient >100 ng/mL Potential Toxicity Performed By: #### H H #### [facility] [address] [place] [address] Dr. Catarino Curran Coding Summary.on 03-12-2021 Coding Summary. CD:[id number] Gh0bWw +PGhlYWQ+BZ2DIPAbN11afAJld N4KQ3nTJV5QFUZXWGJYWB5UWS9 vqUT2VTcaD2LnagRg XtfqaZLqII70BPp6HPT9yPqsIL vogH4fzZJgP8g8SxCwQL32fT92 XYjkUXSoAvV0AwWdbdokeGRz Y2ogTgGtyCXtIom+PHRhYmxlIH bpCONoLCaiFPWjYjOtmMjkND1a Ws8hPDXiBECaeBilcDOsObYf y8hhEUQoPGnzYT8uwFamX5RkqL J6JKTch6n2Zi22tKB+PHRkIHN0 hNixQLcla178CcBpp4ehCLD0 cVLtAVndPXJ4P29nf8D9WHXyYP WkXJU3gLE0rZ9qrWdnpxvbL8Dt kUWvKpX1ORL2wJJkvG4ypUcs javtaP0wIqc+E51DOF7CQQZYBE 1AVwq5H7EpAzupuUQ+ME32HCTa II52eEQyqFNoo0arcNj8UbMk QMEtQEL1bOehWXiib2AoKSPqA5 5fqRGmm6W8PDZdwQqezHIqAkRk wHQ5xQ2eFYurheayz4qccgtx Momve0nuzf01wK41E20oRZqyZW VhIPU0FKBcDKHgjJsqya2czQ2e Ii8+XYkhr5mtd2omhVg3NpNu UUQvvoBqpLtbIGU3j1UlDk88M3 QewGkmz3GpZjq3vb23tJYyv8E6 pYN1IBucUVPjaU0qOBhzXiK0 EKRxMsSjdE91oQCcFSrvOp7rpN cvlCtqYN1dWMKuilvzHYHyxY3j HERzgHOteDrcLE8kDLZwnutz z210MuZzWEC0UXQgbDLwF2WhlZ 2nEmIzRFInRQXgG9OtzEIzQQxv N474CAaeYgT6EKRswaCcD3Kg SWZtbIanZsU7n5A4Co7Vm5Puzd ueUBR4XQnwXSQ1LyV3NcPeJxN1 P5RtMof9ZZYsoTdhTS4vU6Kx WFHpapzvahdfjAF7XQHlCASvyA 76xFDbWMfoOw2kg6T4x600QQAv PDXcsQ76Dz5ymJpbJLAdaNMB xR9lauaau2rvavvpNsQnPRThQI q3WDh5LHMrfCleBoAvXDV1CpN7 ZYM9jBNxvI2fdMnrwyqtaI1i Oyc+J86ufL2sDPA5WTS4cmtuKM HbfwShIQ39YM51M5TlKubwnUVi bGU+IZLagfIhrSnzPS8yXnLc t0oxy7WoWVciE3NeMMZeWFylUp s6NIPyYBL8eLY8dJ3uGLAxYRjw s9P8gZQ9R9BfpbKhhk4mg7wj CHAaJMulB84maVNat6A3KHBmzK Q2RLLuqZkzQgLjxK36Uny+PGNv pOhfr1TdYblqc5qzt5ctxWj6 VpEwVAXvdcWoqTwcLIE8d2YwKc 41D69lMJbnZBRrTQCtEWLfDIYr mWdmwh1xyZ5lMf8+PGNvbCB3 vOY2oY2mFPOgAkJ5MQwrO786Kn CnwQJhHhxun2qvj2pyeHt5XeGd FOJeieXlaCzcZAG9p1PdIa33 W44eTZwqGXGkBZYlRXOrADGvpL kkfe0siQ0pGc1+KQ9gg9zbjj90 fD44eXH+UVWjHWF9lEivRQyf ZCLopG3qSVmvJkA7LKFfZwXebP 89wDTuRPycJf5axFcccFdmKT7x BDAafixmf939TuIdm1oaYXOt cXSbUUedRNW9A61ix6D4AESgOH UwROF0dXE2bD3pvBagnpqamBEe pLdatrVotOcoGYqjUUibF130 IHRvcDsnPlBhdGllbnQgTmFtZT b8Y3QrPob7BPKqdPqiGH2igFDk LNyoJz4glFslwGicGJ0eHFNc noovh101UtBri5goDUBgpJJuLJ sbDNG1A85ev3Z7XYKzVOVnXPJ1 fPA8dS0ulLpkcwkbcKKziFmv ghJopOasNArcMOubD104CWQktB epFdYjtpIqFXBjaTS7LL73SX79 aHRvf5I0eVO8W6BdLJGgngbf dmmttZK6MXMxPUWeqD45Og9ywA diHz2vXUVlBBP0ASTilJGfI2Ho qH1mTsPvEQEbMDGfR1GyoONt EGexR421DZbmTuO6SQXwtsTxB5 RrTXKlwLunNtP0v9Q0Wp6RY4Y7 PD68RY27kWKpl0Y0xZG6R5Lz XPOjnnotkbpjkYZ6TBRqQGBfdS 83Jg6ifGfmEw7dTLIhLCX6POHu kNMfT0WfeG4cIeKgOICnEMEf E9UoeWHyUFmmS145RAhmBjO8VQ LkidFaL8LoQQSgwKcpOwZ6u1Y9 Jn6KLBl0YS18AY29fREta3P8 kOG3H2BeTFAizorjcxvemMM1XB CnXWYnoW16Rn7thSugAm7iBBCx EPL1UWIxuVZoH9IbhJ7zSaCc UPRuJOGcP8AlqAHrIIehK863IP oqQcX3GRCtnoNxS4SfSTMzbGqa VkP9v4J6Hs1FBURwOM33XKK2 aFW7DP22NH10D4WhRowgeUTbiQ U+PHRhYmxlIHdpZHRoPScxMDAl UsVrjVetPO6fJq8vNCJvMWKe rDmtgYSmUwHgg0ebUTGaRLwvIX 2lqWcnZ4BlhBB5LTUuy2e8Cq15 Q79eQ4LkaSY+KGKzpDK4zIS4 mJ9nToOiNsW6QNrdA294QsPclE EwWqbrg8ild0cptVp1HrO8VUBv etBjuGisCSK6i3MpTf07V23m IHdpZHRoPSIxNSUiIHZhbGlnbj 5fqL7rYs2+VLQhoYV0wYO7tJ7x ZtFwRqG2LSucF952NrNknBQm Nrpxf9skg6xslJe1RlOsPYKejn RcmTbkLNU7c6RxCe72P8GjsRpz a0AaJtt2pb02sOEnp5Z8nSM8 P8NoHBPoowdwxHEzgKmsYS5uWM OspyndKBNdsI9zXHWcW1z2ZtJy TlK2QOiwZ0BvdmV9NRQeeVEd UQldVKI1Y53pf0L7FTMzNVZvGS V1oGX5jH7oaMnnguraaSWozVnr qsJnnHppYGisIKplR385EMNv rPdrDSVwsU7iHSIrpAHmkYtvCB 1nIABxklwvFwpKIy0ZCRKJFWCw TMJIL6JUEYO5K6EiHzq5BPVk bBxdVX6fiTVhDVzrQv7yoUigzK ajCT6vKGWddpunGLKfzF9sIMQf kZDnxHosCQ0eWGIudredb344 BzHeHUW0LCPogMPsA6IjpA4fTy JiSTBeKZDyO5VilKBxQVloO270 QRqpJgU0JQTcajLmO8XzGBYt oMjrAtZ1a4I3Cu2mED6pAV2hVF GkAE17WK34rQJiz2B0qKG8V2Aq JOSlrqccymttmJK5ZSEpDKAs eG07aLVkLKcxHf9qr8M4z813UR JzODKmeB16Kb2yvSuvXHTzzOXZ mT0bkaswl8yiyjdhUrSuEWSp HVh4SNa9TEUmpIppKpMeUMJ3Dx V5VUA0kNXvgA7lrZxfvsywgO1z Oyc+NzZpSTLyvjN6O4DjGlc8 OYLhqHtvEW0efFWrJLjiBd8ltB vvdMhjVN2eTZWvkbrdFGUgeN7q KCJcgUCywSibKE9aKFOoddov y577MqAoICZ4HBUvxOMrK4YjqN 7cYeIoIRHiABYgM6GqyYPmSXjm X441UHwlXqP4YUHzxhDsD3Yt FKYqlWpbNgM2r1A6Dz3OPD2glG H8U5JfRgs3BKVxgOnoMX8xpWVl FBmrKa8btRqiwTdrPL5oMBWz xuqhDGEqkZ6bNVUmsFYceUjfMC 0rZTDeleoox930AxFsIZZ4LLWd xORuE7BziB0cEwApHTHqMQNb O2XtdCFiDHjaC513GAmgIeX6VG AcpiCuK1LlIGXivTseJfI0e6A9 Sk2IsMAfXLOaCD06TI77SD34 I1OhLsphlGKsvFX+PHRhYmxlIH ckISEbNSuxVSDjGyNmiJksFR7j Uc4fMEUtOFUjtUawfCDzUmKp x9rjDUAvEGyuPQ5yvBbtP9WwnL J9JVNvd2a0Jh79Y24rD4WgmEQ+ XNFweHD1cYN5uU1zJuHdUmC9 LRflX741CfKltAGkOzyxa8sag5 sgoSk4UnGsWTAkqjSsaObzIOJ9 j7PxYu49N49mALveLEPuKCXw EFUfGRSslGsqdl3peG0cEm2+PG DqtMF3bRW3qZ0oCsFgYtG0JYwf I175AjVksHEgKyufO23xA9Aw dXA+CJMmUbc3RVZzyMecLJ2ewA HpQLovLu4wQUK5OmHfKlOrSVfg D0CuYJWvipsadidfnYO4JDFd GQUxaX17Mc6pgXkpGq8oUDGyZN V3MEWbdCMrX6YrmF9eGzHvUUMu RJFnE9BwxRFwYEcoD652TIok WwE2UTRsnuTiT0DhTDPrhReiEu U0q4O8Hc0IkNllwBDyVD2hSmZb KQm8H7LgTni7YMVaxAbnCP6k sPWaMTscIi1fmYvdiXnoTW3pTE Xdocfpy773CxJag3tlIFDipVVd ZJnvXAR0C67tc3U2PMPcGONw MMH2eGI5eE9spYhobfvayGKszW fyvbShoZulBKjlQGtuW619ENXe rVokTmJLRzd7V3MfUip5USMk dHmvLS2jlSUjJQmdEs9liKnwxV roMR8yGIDzhaiun097QjVoe9id EGLyqISeJJtoIFI2Q44ac6Y2 VTXkPIXlQJD6pAA1nI6idGplup ogbGVmdDsgdmVydGljYWwtYWxp D172ENTlvWheHa3WRhs2X1Jr Und9FJEjwMfeJA8hzOQmKJphSo 3ptOsbpFpbWI4bZFGxlkper935 XmTwm0ieIDIbiGAxYWgyTZV1 U05pz9U0OTUuZWCoXNK4xKH1gX 1hbGlnbjogbGVmdDsgdmVydGlj TXtwWItfG568TJRbwYsiSnHw eWVyOjwvdGQ+OH73vi79O4RoGi fcCnr1LBMlWNV3zND2nM6bSSEh AEgtp7A8mYN8N8HshmLayw3c b2xs (more content not included)... Normal [facility] CT Head or Brain w/o Contras ton [...] Raulito Chavez MD Transcribed by: KOBI Technologist: [facility] Consent for Treatmenton 02-13 Consent for Treatment [id number]#1.00CD:127 [facility] Physician Orderon 02-26-2021 Physician Order [id number]#1.00CD:127 [facility] Pre-Certification Formon Pre-Certification Form [id number]#1.00CD:127 [facility] Coding Summary.on 12-11-2020 Coding Summary. CD:[id number] Gh0bWw +PGhlYWQ+OJ3WLYJhH82dxMRhw Z3SL7nJFE6AFWBZMKFRAQ8USU5 piLL7QJrsC7PhrqTj LmmyfOZjAX11SLo5UZC2fOabGK nmzH5kiJSvQ6j2UhBsPK42qV81 ZYmjOUWdZdD6YxMzcxtkcNZy J8bvLyAivRDyJyr+PHRhYmxlIH caWFYxOMegIIReTjUsyHmkEK2s Ku8qDAHhYXYziBiegYYbJqPv i0naRZIxGKxcUO8hzHziP7AdlF B7RPCex5o0Kw09dRI+PHRkIHN0 vGqlYYofl912WmCtk6kgUSO8 hWXdLRrzSSQ2R86sl4C3YVFjSK UgNHP9iVK7tS4cvBnlvpetG3Wc cJSwAcQ8HXH4hBQcjA7cvEnd olcvhD6oIcd+I73MNM0JDYEZOV 6OOtj6P2MeFpcsmOM+KJ26YSXr GB99zHDeoSSnm4sxwDc7DrCx QYQwNBG6dFtaCDoic1AvZDGqC6 6wmGSmz2O3LDWzdXdisPRoUkXp qKV4sS4tPLfdrmerm2hzrqxx Byfwe6cpfe10tP13O84fAXwcXJ OcUYV6AWHpCWQawElanc6ycX4k Ii8+NYcjk2ash7zajHc7TsLj NPFqimZnaSuvZRZ3k1YlRa83A2 PelUdoy9GiOxd4pi83jJFse3L2 lDW4VCxlCPZdpV5dXCtaDgG8 WTXaCvJzvB90pRFqFEgcNx4tjJ prhJrtGY5mBDGguwonVYAetD6c IRYbeHPhgUugTQ6pMEHkrnsf m398WyMmRHD0QSPpoYKlX6IhcO 8lTvKiKKEhPCWmQ0NlxGZyRYcv R037FEdsBxI4PNSoocZeE3Ef XHWsaVitPcL5g4X6Un9Km9Hisv elPZF4TCnnEIS1JvQ1RlJcBtM1 X1SkUtb1JSNfwAuzZC9nU3Ia FCFdwpddbcmsqES4WOVdCSEzhL 80fDGsLBjnIg8ic5D2p592JULf JPWktN17Pe4iuHmgJKMarZZN cW2iidtlo1vwlpgzItVwIIDeFV h5VTc3TNFnqPvhYzPrZMA5LhL6 IWI6rTWpqS5boCwgzujsaV8k Oyc+H03ygN2jXSI7NKT3gfhnOK UlyqDxRH93ZR62E8WeTiweaBZa bGU+IBKezkTefOsgRN6mXoGs r5dxl3CpZYkhR4StYFCjLTjgBj g5LIMvFAO8xWM9uM0cTNPpNXuz b6X2gYI4P3ChllAyta9eh2pm IWLkZKwoS45fgVKny2B8JBNehE I7YMGbbQunOfTxmI94Dwl+PGNv sYuvd3ZpWobhl7zgz7jexFi2 IlUwGYGavzRavQruBCW8l7XhQf 26Y72dOZsbEIJlNEPxOXRqUQHn gZnxke4vjF7aYv7+PGNvbCB3 pNO2yP7iNCXsRgH4WXeiW558At TmkKCeVymwk5mcy0gsfQn1LsNf ZXVgruVfhMvzYJC9v1WhXt66 J70xAQldKJYiMKDyRJQtXYMuyF urvv5ooW2yNi9+OY3rs5sqjr21 mE56qES+ECZfNKQ2xRsgJZfu SRRfqA7zZTloTeQ8DOSvRgAlnJ 35fMIsCDfrQl8zdPbfaWzuVO0j JJXpwcckg200HrTzp7bkUQTm vHOkQNlkKXQ4B06pv6W7OGWsAG FoBAR6bSX4oS2dsWsjaotvpXTo lOalijYwtJsjRCdlWUfbI774 IHRvcDsnPlBhdGllbnQgTmFtZT q7V9LmSie4XWDgfNmzSW5yvYMm XAfoUw9soKqxeKooVJ0zHAQc mmhws283JgMgr2amJQHnhYAqSO weOLR5S18vk2N8EHLjBVDoZDD2 tRG2fH2psYamlzlomUZmtRaj ghUkeBztYWgnRSirV163BSPulQ tqKoCtgvCzBLFdbHD2OF46XS87 zKRvr7F4dUU8P7GuNJBwhizm wrjmxLF9OPIqLSRmlD24Vj7riM tmWm1cUWBzUDW6HFKgvPCoU2Kd eQ2qGxMyDOYwOREtB4GjgNKl KIlhN217FAgoVzS6FTFeakRbG2 LjIEFluHgjUqK6v3S6Rj0VR9C7 DG03DR30rDFad9F8pDQ9O2Sm SHDssqjtswwgwSC6YVLmCKOagE 98Qb7mwJufPb6jUXUhLQL8JEQn aCDtV1UbtM8iSnXzMTOhDZWq X5HcyXOaXKfhO628YYwrWbF2WU QcvtMsU0RgPGGsoVxoIaH0h2V4 Wf7EOKo7RK44VG24nTHkn9V4 pLN0S1OwNDJsfyoiqeocoKF2LH LxHXJjaY89Qv9suCyzFf8gAVKt CUT2KPNdyTEyO8BssE5iMwOw GLVmWCUtK3GmnGZqZCniM732GA koRnJ3NREosySqQ3FiLWEnzOtt TxY2b5F6Ci5BFXLfWN98JUA0 xQW1EL45TA42O1SkClspvEWamF U+PHRhYmxlIHdpZHRoPScxMDAl KbEiuRlfGV6fBz0iTTZuZHCk cVnjzUDsFoRye8wzUVPpPQpuOU 3fqQriU2JhhFJ6UKNaj7w2Ex17 D63zP7GfxTY+KZEfcWQ2eHU2 yR5zLpQqAkR2BPcoR192MeDowH TkVnbqz6fhy3ydlOw2FmT2PVNy jcDwnZfdBTV3j6SrKu86Q34e IHdpZHRoPSIxNSUiIHZhbGlnbj 5gtD6mVr6+TGJehMQ8tOJ4iL1l UtIlSqU2EUdlF350LmElfBQa Qifdd3nwj6wsmTf1VwHuXWNuou ZhjPqoISA3r4HnAn37C0SblNwx t4FuFsd7bn38gTOjc5F1fAL1 T8HbMESxxksqyYIkgKjkAD0sLU PyrohjNVGxpG2cHAOkA4p8EsKs OtC9UNmmL5IyjlQ1WDVsoMAs WSqhDXB8M09od8P8NZKpNCDaIM R8iVE2sK2wiAqydnqtvHIfzYnc poGvhIfaCSwfPCftJ702FQDg xPmfHMHsmR0oCAQdiVWdvLfyJP 3tSLMgxwgcSbcLBe7WZAHSOLSv EXYWV3UTUKO4X2TyJhp4ZVOr kMkzXZ1qrCSrQZaaRe9dfDpwmV pfDG0kSUVokcoyIOVpmF1cUVCa kHWbwXtyKH3jSCCaiqnka876 SjFuKNK1TRCmnAFgB9CjkR3iAt KqOSPdMQXwT4UnbLXyXIufX168 ONwxToB6IOCpefYfW1GvOMMu uLtvUsE4x8Z6Af3wXR1aKW4dHK EtTS61WT50xLKhv6G0eKB0J6Ze YIQkxxaiipexaNQ2ZLSnLODi wP82cUVnWAsfNq0my9N4z373NV CcQDVmiP74Gj2axFwnGVRekPUH uN7vbbsjy8kotwrpFaBhYBCa PAf1VUs0JKVvzSnaGnFnLNK5Fg W3UVP5mPWrrM6rsCneeayndN1z Oyc+XcXuLXHdxiU1S9RfEzc0 EKNtwEjsBG6edGCrEIfgAj4ekV yplDsiGJ6cESPahkliVICcuU4s JDBmkKPwsTdjAY2gSZQhbtmz n441FzGqDXZ4GIMvaELjA7UlwJ 6jMoVzYZTkJLJhC9ChyJGzNNwm Q922LCngJjB7KBHpkeDzJ7Is WUAgxVnuVmE4x5A4Wp5IAA8oqM I0O4YgSba8GYOlnWncLH2biPBb YLugTw1cqJeihBqoBQ6aDUFb linxYDAxhS9cHNUpbNEddCarFB 3tPADmzegkj305UfBfBMY9SAUq rJIbK5KvbV4oRoZeXYViGJHv H9KezDNlQFdpA916KWjoCgG8VX SxufFeI6RjKQXviTdlXxK1g6T3 Vx4HfSHjJNQkLX32EQ18HZ40 U5DeDjdccAEuvLC+PHRhYmxlIH ygMUQuMFbpPPXiKhJxvVxsWN2s Sr3rFQWoNSTwuNzdnWMrJyKp u4goHASvLSktKX0taDujI5KudN Y3GCOag0w8Cm14Y67pC5EgfAK+ ITFlaPW0kMR4hC4rUwCdJiW5 YNbtN035FaAjiJNbNqxcx2uyj0 zhvJo7MoFyPPOkqvTroFkxZMZ1 v1IdJe43W68vWWlbXGFxPKPn IRYgZGOmiEkfjm4svA0gXt1+PG KqiQO4uGB6lQ8rYyVxGrB3FBtj C359MbWpjWRtQdthB01vM3Gl dXA+AUAjEhx4JGDnaEupSB5ufJ LsSSbsAg9gMYO7WjQeVlTnKJkt P4JsVRUlggqxbmzetDR7JFBo HRVnmM15Gy1htPnxVu1mLQMhNY D6XXOzuCZhO4DotV3yPuLtJEVu NRZjW5OynOLvZPklD428RKym AkW8KCGvllNjQ7QsAOKrzKcnHo F3k5F6Db8JjKqkgHYoUE0lLlFg KKt7O4ExJky2OLQopSkjXK1t lUJzEQpqHz1mtBbujSszUO7dZJ Tihixwa327JaLkm6hyQXKauEZt XAjmUYP5O32um3D8VBCyUCNx GHK9sVW0mI6ilXvvqcntdTExaE msncUbaMkyOEbxBWyaG148PJRk qFugZcAENnt4C1OaQyj6RJOw fXjvKZ3bcXRqTNafNa5zgXkfpX luRS7nRAGirmege705SpRxd5ya LRBgoZXeJNknJVA6R34oy8E1 SUMdPBOmEWC0hZR8rY3jpHzyqu ogbGVmdDsgdmVydGljYWwtYWxp J577ODQnxAjyTg0QYyv7T9Mm Pzr7TGTcxLfsCR1ndZKrHXdbGt 5fqAhrwBztOZ2fASQxfdyzj377 XzVig7jcWYDiqXTfOAnhRRE4 S75xb7Y9KCQoMZUpHRL8xDU0uS 1hbGlnbjogbGVmdDsgdmVydGlj DMpoYCacC391AQBmnEimNvPc eWVyOjwvdGQ+YQ58bh38A3WhEd fgWtt9PZNfNWM2vNL9aT8wIIJs LZcjw4A7vZH2B6EwonQvru4g b2xs (more content not included)... Normal [facility] CRPon 12-03-2020 CRP [Mass/Vol] 4.7 mg/dL High <=1.9 [facility] Comment on above: Performed By: #### [id number] ####[facility] [id number] [place] [address] Consent for Treatmenton 11-14 Consent for Treatment [id number] Normal [facility] Physician Orderon 12-03-2020 Physician Order [id number] Normal [facility] IntraOperative Documentson 0 11-10-2020 IntraOperative Documents [id number]:127 Normal [facility] Coding Summary.on 11-07-2020 Coding Summary. CODING DATE: 021 FINAL [facility] DSCH STATUS: Home (Routine DC) PAYOR: Medicare [...] Saved: 11/07/2020 11:36 am Normal [facility] Coding Summary.on 11-06-2020 Coding Summary. CODING DATE: FINAL [facility] STATUS: Home (Routine DC) PAYOR: Medicare APC [...] PROC APC STAT DESCRIPTION DOCTOR NAME DATE 48201 5072 J1 Ligation or biopsy, Bianca Peoples [...] Cali Date Saved: 11/06/2020 03:19 pm Normal [facility] Main OR Intraoperative Recor don 11-06-2020 Main OR Intraoperative Record IntraOp Document Type FT Summary Primary Physician: Bianca Peoples MD Finalized Date/Time: 11/06/20 10:16:21 Pt. Name: BHUMIKA WHEATLEY/Sex: 1950 Female Med Rec #: [id number] Physician: Bianca Peoples MD Financial #: [id number] Pt. Type: A Room/Bed: AS03/15 Admit/Disch: 11/03/20 [...] Smita Curtis Role Performed Surgeon - Primary Digital Asset Coordinator - Primary Scrub - Primary Time In [...] (more content not included)... Normal [facility] Discharge Instructionson Discharge Instructions [id number]#[id number]:127 Normal [facility] IntraOperative Documentson 0 11-04-2020 IntraOperative Documents [id number]#1.00CD:127 Normal [facility] Operative Reporton Operative Report Date of Surgery: [...] complications. Bianca Peoples MD gls Dictated: 11/03/2020 #[id number] Typed: 11/04/2020 #[id number] cc: Bianca Peoples MD [facility] Comment on above: Result Comment: Elec tronically Signed By: Bianca Peoples MD\.br\Date and Time Signed: 11/04/20 20:56 EDT Preoperative Documentson Preoperative Documents [id number]#1.00CD:127 [facility] Consent for Treatmenton 10-14 Consent for Treatment [id number]#1.00CD:127 Normal [facility] Inpatient Patient Summaryon 11-03-2020 Inpatient Patient Summary [place] [id number] [facility] Clinical Discharge Instructions PERSON INFORMATION Name: BHUMIKA WHEATLEY PHYSICIANS Admitting Physician: Bianca Peoples MD Attending Physician: Bianca Peoples MD PCP: KAMERON BARROS, ESPINOZA Espinal Discharge Diagnosis: Giant cell arteritis Comment: PATIENT EDUCATION INFORMATION Instructions: Medication Leaflets: Follow up: With: Address: When: Bianca Peoples [address] [place] [address] [phone] Business (1) Within 1 week MEDICATION LIST [...] day., double visione, pain Comment: Normal [facility] Main OR PACU II [facility] Main OR PACU II Record PACU Phase II Document Type FT Summary Primary Physician: Bianca Peoples MD Finalized Date/Time: 11/03/20 13:05:07 Pt. Name: BHUMIKA WHEATLEY Ever Tavares./Sex: 1950 Female Med Rec #: [id number] Physician: Bianca Peoples MD Financial #: [id number] Pt. Type: A Room/Bed: [place] [address] Admit/Disch: 11/03/20 08:17:30 - Institution: Case Times [...] Parish RN 11/03/20 13:05 Normal [facility] Main OR Preoperative Recordo n 11-03-2020 Main OR Preoperative Record Holding Area Document Type FT Summary Primary Physician: Bianca Peoples MD Finalized Date/Time: 11/03/20 09:17:24 Pt. Name: BHUMIKA WHEATLEY/Sex: 1950 Female Med Rec #: [id number] Physician: Bianca Peoples MD Financial #: [id number] Pt. Type: A Room/Bed: [place] [address] Admit/Disch: 11/03/20 08:17:30 - Institution: Case Times [...] Denis LPN 11/03/20 09:17 Normal [facility] Outpatient Surgery Discharge Instructionon 11-03-2020 Outpatient Surgery Discharge Instruction [place] [id number] Patient Discharge Instructions PERSON INFORMATION Name: BHUMIKA [...] Follow up: With: Address: When: Bianca Peoples [facility] [address] [place] [address] [phone] Business (1) Within 1 week Pharmacy Information: [facility] Josiah You may receive a survey from [employer] asking you to rate your care experience. Your feedback is important and will help us understand what we do well and how we can improve the quality of care we provide to you, your loved ones and our community. It?s an honor to serve you. Thank you for choosing [facility] HERE ARE THE MEDICATION [...] PATIENT EDUCATION INFORMATION Instructions: Normal [facility] Patient Education - Texton 0 11-03-2020 Patient Education - Text [facility] Progress Note-Physicianon Progress Note-Physician Patient: BHUMIKA WHEATLEY [...] 1:100,000 epinephrine, MAC sedation. Normal [facility] Comment on above: Result Comment: Elec tronically Signed By: Bianca Peoples MD\.br\Date and Time Signed: 11/03/20 12:24 EDT Consent for Procedure/Surger yon 10-31-2020 Consent for Procedure/Surgery [id number]#[id number]:127 Normal [facility] Auto Diffon 10-29-2020 Basophils/100 WBC (Bld) 0.3 % Normal 0.0-2.0 [facility] Comment on above: Order Comment: Order Added by Discern Expert. Performed By: #### 1 [id number], 6681011, 0868676, [id number] ####[facility] [address] [place] [address] Basophils/Leukocyt es Auto (Bld) [Pure # fraction] 0.0 E9/L Normal 0.0-0.2 [facility] Comment on above: Order Comment: Order Added by Discern Expert. Performed By: #### 1 [id number], 7786433, 7775645, [id number] ####[facility] [address] [place] [address] Eosinophils/100 WBC (Bld) 1.2 % Normal 0.0-8.0 [facility] Comment on above: Order Comment: Order Added by Discern Expert. Performed By: #### 1 7602509, 8232649, 5399031, 95430450 ####[facility] [address] [place] [address] Eosinophils/Leukoc ytes Auto (Bld) [Pure # fraction] 0.1 E9/L Normal 0.0-0.5 [facility] Comment on above: Order Comment: Order Added by Discern Expert. Performed By: #### 1 1385448, 3915739, 7822498, 58924248 ####[facility] [address] [place] [address] Lymphocytes/100 WBC (Bld) 9.2 % Low 14.0-50.0 [facility] Comment on above: Order Comment: Order Added by Discern Expert. Performed By: #### 1 5212476, 0026935, 7474154, 20548962 ####[place] [address] [place] [address] Lymphocytes/Leukoc ytes Auto (Bld) [Pure # fraction] 0.7 E9/L Low 1.0-4.0 [facility] Comment on above: Order Comment: Order Added by Discern Expert. Performed By: #### 1 2993527, 3108732, 0577958, 84348665 ####[place] [address] [place] [address] Monocytes/100 WBC (Bld) 16.3 % High 4.0-14.0 [facility] Comment on above: Order Comment: Order Added by Discern Expert. Performed By: #### 1 9511603, 5284831, 9106146, 41913819 ####[facility] [address] [place] [address] Monocytes/Leukocyt es Auto (Bld) [Pure # fraction] 1.3 E9/L High 0.2-1.0 [facility] Comment on above: Order Comment: Order Added by Discern Expert. Performed By: #### 1 8643882, 7840255, 1217987, 37621331 ####[facility] [address] [place] [address] Neutrophils/100 WBC (Bld) 73.0 % Normal 36.0-75.0 [facility] Comment on above: Order Comment: Order Added by Discern Expert. Performed By: #### 1 8410722, 4672903, 0033191, 66878892 ####[facility] [address] [place] [address] Neutrophils/Leukoc ytes Auto (Bld) [Pure # fraction] 5.8 E9/L Normal 2.0-7.5 [facility] Comment on above: Order Comment: Order Added by Discern Expert. Performed By: #### 1 3815635, 1503413, 6329581, 93483856 ####[place] [address] [place] [address] CBC w/ Auto Diffon Erythrocyte distribution width (RBC) [Ratio] 14.3 % High 10.9-14.2 [facility] Comment on above: Performed By: #### 1 4195482, 6149612, 7595769, 14907582 ####[place] [address] [place] [address] Hematocrit (Bld) [Volume fraction] 35.3 % Normal 34.0-46.0 [facility] Comment on above: Performed By: #### 1 3592849, 6462893, 7929031, 16715286 ####[place] [address] [place] [address] Hemoglobin (Bld) [Mass/Vol] 11.7 g/dL Low 12.0-16.0 [facility] Comment on above: Performed By: #### 1 1005228, 8094644, 3330479, 73385721 ####[place] [address] [place] [address] MCH (RBC) [Entitic mass] 29.6 pg Normal 27.0-34.0 [facility] Comment on above: Performed By: #### 1 7418614, 1954018, 4176699, 42338030 ####[place] [address] [place] [address] MCHC (RBC) [Mass/Vol] 33.2 g/dL Normal 31.4-36.0 [facility] Comment on above: Performed By: #### 1 8668104, 1784136, 0410516, 70937349 ####[place] [address] [place] [address] MCV (RBC) [Entitic vol] 89.2 fL Normal 80.0-100.0 [facility] Comment on above: Performed By: #### 1 8096698, 0718500, 6094418, 81276635 ####[facility] [address] [place] [address] Platelet mean volume (Bld) [Entitic vol] 7.7 fL Normal 6.4-10.8 [facility] Comment on above: Performed By: #### 1 3589177, 2259529, 6699124, 93904007 ####[place] [address] [place] [address] Platelets (Bld) [#/Vol] 321.0 E9/L Normal 150.0-500.0 [facility] Comment on above: Performed By: #### 1 4660035, 8737724, 2352287, 54220173 ####[address] [address] RBC (Bld) [#/Vol] 4.0 E12/L Low 4.3-5.9 [facility] Comment on above: Performed By: #### 1 7520578, 5284534, 4458186, 26691340 ####[address] [address] WBC corrected for nucl RBC Auto (Bld) [#/Vol] 8.0 E9/L Normal 4.0-11.0 [facility] Comment on above: Result Comment: Slid e reviewed by ohz838. Performed By: #### 1 3524366, 7387310, 8451192, 76675864 ####[address] [address] CRP HSon 10-29-2020 CRP High sensitivity method [Mass/Vol] 6.91 mg/dL High <=0.75 [facility] Comment on above: Performed By: #### 1 6531647, 4390156, 4373899, 56089645 ####[place] [address] [place] [address] Consent for Treatmenton 10-13 Consent for Treatment [id number]#[id number]:127 Normal [facility] Physician Orderon 10-29-2020 Physician Order [id number]#1.00CD:127 Normal [facility] Sed Rate Automatedon 021 Sed Rate Automated 99 mm/hr High 0-34 [facility] Comment on above: Performed By: #### 1 9293536, 2391309, 2374039, 81019006 ####[facility] [address] [place] [address] GLUCOSE-POCTon 03-13-2019 Glucose [Mass/Vol] 157 mg/dL High 74 - 99 [facility] Comment on above: Performed By: #### P TINR #### [facility] [address] [place] [address] REFLEX TESTS FOR POS ANCAon 03-13-2019 MYELOPEROXIDASE AB 41 AU/mL High 0-19 [facility] Comment on above: Result Comment: INTE RPRETIVE INFORMATION: Myeloperoxidase Abs, IgG 19 AU/mL or Less ......... Negative 20-25 AU/mL .............. Equivocal 26 AU/mL or Greater ...... Positive Approximately 90% of patients with a P-ANCA pattern by IFA have antibodies specific for MPO. Performed By: #### R ANCA ####[facility] [place] [address] Protein [Mass/Vol] 108 AU/mL High 0-19 [facility] Comment on above: Result Comment: INTE RPRETIVE INFORMATION: Serine Protease 3, IgG 19 AU/mL or Less ........ Negative 20-25 AU/mL ............. Equivocal 26 AU/mL or Greater ..... Positive Approximately 85% of patients with a C-ANCA pattern by IFA have antibodies specific for PR3. Performed by [employer], [address] [place] [address] [email or web address], Rafael Robertson MD - Lab. Director Performed By: #### R ANCA ####[facility] [place] [address] TAMIKA TITER/LUIS PANELon 2018 TAMIKA PATTERN SPECKLED Normal [facility] Comment on above: Performed By: #### P TINR #### [facility] [address] [place] [address] TAMIKA TITER 1:640 Normal [facility] Comment on above: Performed By: #### P TINR #### [facility] [address] [place] [address] ANCA WITH REFLEX TO MPO, PR3 on 03-12-2019 ANCA WITH REFLEX TO MPO, PR3 1:320 High <1:20 [facility] Comment on above: Result Comment: Lotus nuclear [...] collagen vascular disease or arthritis. Performed by [employer], [address] [place] [address] [email or web address], Rafael Robertson MD - Lab. Director Performed By: #### A NCAR ####[employer] [place] [address] CBCon 03-12-2019 Erythrocyte distribution width (RBC) [Ratio] 16.0 % High 11.5 - 14.5 [facility] Comment on above: Performed By: #### P TINR #### [facility] [address] [place] [address] Hematocrit (Bld) [Volume fraction] 25.6 % Low 36.0 - 46.0 [facility] Comment on above: Performed By: #### P TINR #### [facility] [address] [place] [address] Hemoglobin (Bld) [Mass/Vol] 7.9 g/dL Low 12.0 - 16.0 [facility] Comment on above: Performed By: #### P TINR #### [facility] [address] [place] [address] MCHC (RBC) [Mass/Vol] 30.9 g/dL Low 32.0 - 36.0 [facility] Comment on above: Performed By: #### P TINR #### [facility] [address] [place] [address] MCV (RBC) [Entitic vol] 95 fL Normal 80 - 100 [facility] Comment on above: Performed By: #### P TINR #### [facility] [address] [place] [address] Nucleated RBC/100 WBC (Bld) [Ratio] 0.0 /100 WBC Normal 0.0-0.0 [facility] Comment on above: Performed By: #### P TINR #### [facility] [address] [place] [address] Platelets (Bld) [#/Vol] 203 10*3/uL Normal 150 - 450 [facility] Comment on above: Performed By: #### P TINR #### [facility] [address] [place] [address] RBC (Bld) [#/Vol] 2.69 x10E12/L Low 4.00 - 5.20 [facility] Comment on above: Performed By: #### P TINR #### [facility] [address] [place] [address] WBC (Bld) [#/Vol] 13.8 10*3/uL High 4.4 - 11.3 [facility] Comment on above: Performed By: #### P TINR #### [facility] [address] [place] [address] Clinical Event Note-Nephrolo gyon 03-12-2019 Clinical Event Note-Nephrology Event: Topic: Nephrology Details: okay to discharge patient from nephrology standpoint with outpatient nephrology follow up continue on prednisone and MMF follow up pending serology and workup request kidney Bx ( slides and block) to be read at [facility] Kenia Sanchez MD, MS Nephrology fellow P [phone] Electronic Signatures: Kenia Sanchez ( (Fellow)) (Signed 12-Mar-2019 19:09) Authored: Event Last Updated: 12-Mar-2019 19:09 by Kenia Sanchez ( (Fellow)) Normal [facility] Daily Progress Note-Medicine on 03-12-2019 Daily Progress Note-Medicine Service: Medicine Subjective Data: BHUMIKA WHEATLEY is a 68 year old Female who is Hospital Day # 5. Overnight Events: Patient had an uneventful night. Objective Data: Objective Information: ---- Intake and Output ----- Mn/Dy/Year TimeIntakeOutputNet Mar 12, 2019 6:00 [id number] Mar 11, 2019 10:00 [id number] The Intake and Output Totals for the last 24 hours are: IntakeOutputNet [id number] T PRBPSpO2 Value36.37691222/7499% Date/Time03/12 8: 8: 8: 8: 8:29 Range(36.1C [...] 16.0 H Renal Function Panel Trending View Sfyasl20-Iol-9841 09:14:00 11-Mar-2019 07:10:00 Glucose, Vjcnv543 H 134 H NA139 138 K4.8 4.5 CL104 103 Bicarbonate, Serum22 23 Anion Gap, Serum18 17 BUN87 H 90 H CREAT2.45 H 2.80 H GFR-Non Umvrbpaz65 A 17 A GFR- Zvtxtvdy09 A 21 A Calcium, Serum8.6 8.6 Phosphorus, Serum5.0 H 4.7 ALB2.9 L 2.9 L Glucose_POCT Trending View Pelflg50-Dly-0877 08:26:00 11-Mar-2019 20:46:00 11-Mar-2019 16:17:00 11-Mar-2019 07:02:00 10-Mar-2019 21:23:00 Glucose-OVDP502 H 156 H 88 152 H 155 [...] Updated: 12-Mar-2019 13:44 by Wilberto Morgan) Normal [facility] Daily Progress Note-Medicine Service: Medicine Subjective Data: [...] ----- Mn/Dy/Year TimeIntakeOutputNet Mar 12, 2019 6:00 [id number] Mar 11, 2019 10:00 [id number] The Intake and Output Totals for the last 24 hours are: IntakeOutputNet [id number] T PRBPSpO2 Value36.27334500/7499% Date/Time03/12 8: 8: 8: 8: 8:29 Range(36.1C [...] duration of mycophenolate medication -follow up whether [facility] slides have been uploaded to path #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 ANCA: +ANCA (low positive), +PR3 [...] I: PIV FULL CODE Santi Raymond Pager: [phone] [facility] Nutrition Diagnosis: Nutrition Diagnosis Agree [...] this note. I personally evaluated the patient [id number] Comments/ Additional Findings Please see my note for further details. Electronic Signatures: Margret Raymond (MED STUD) (Signed 12-Mar-2019 14:39) Authored: Service, Subjective Data, Objective Data, Assessment and Plan Wilberto Morgan) (Signed 16-Mar-2019 07:47) Authored: Signature/Cosignature/Atte station Co-Signer: Service, Subjective Data, Objective Data, Assessment and Plan Last Updated: 16-Mar-2019 07:47 by Wilberto Morgan) Normal [facility] Daily Progress Note-Rheumato logyon 03-12-2019 Daily Progress Note-Rheumatology Service: Rheumatology Subjective Data: BHUMIKA WHEATLEY is a 68 year old Female who is Hospital Day # 5. Patient seen and examined at bedside. No acute events. Objective Data: Objective Information: ---- Intake and Output ----- Mn/Dy/Year TimeIntakeOutputNet Mar 12, 2019 2:00 [id number] Mar 12, 2019 6:00 [id number] Mar 11, 2019 10:00 [id number] The Intake and Output Totals for the last 24 hours are: IntakeOutputNet [id number] T PRBPSpO2 Value36.43957495/6899% Date/Time03/12 15: 15: 15: 15: 15:00 Range(36.4C - 36.9C ) (81 - 99 ) (18 - 20 ) (126 - 136 )/ (68 - 74 ) (98% - 99% ) Highest temp of 36.9 C was recorded at 03/12 15:00 ---- Intake and Output ----- Mn/Dy/Year TimeIntakeOutputNet Mar 12, 2019 2:00 [id number] Mar 12, 2019 6:00 [id number] Mar 11, 2019 10:00 [id number] The Intake and Output Totals for the last 24 hours are: IntakeOutputNet [id number] General - NAD Cardiovascular - RRR no [...] Reference Range: STRAW,YELLOW Appearance, Urine HAZY Specific [place], Urine 1.008 pH, Urine 5.0 Protein, Urine [...] 16.0 H Renal Function Panel Trending View Ybeoag20-Eym-1147 09:14:00 11-Mar-2019 07:10:00 Glucose, Oxkbt287 H 134 H NA139 138 K4.8 4.5 CL104 103 Bicarbonate, Serum22 23 Anion Gap, Serum18 17 BUN87 H 90 H CREAT2.45 H 2.80 H GFR-Non Hkwmqdyd85 A 17 A GFR- Arfjgexo82 A 21 A Calcium, Serum8.6 8.6 Phosphorus, Serum5.0 H 4.7 ALB2.9 L 2.9 L Glucose_POCT Trending View Yhaney65-Fic-1385 08:26:00 11-Mar-2019 20:46:00 11-Mar-2019 16:17:00 Glucose-NOCV236 H 156 H 88 Complete Blood Count [...] of PMR 2011, who 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 Pt's symptoms started about a year ago with persistent hematuria, recurrent UTIs accompanied with intermittent flank pain, fatigue, anorexia, alopecia, and weight loss. No symptoms of active SLE other than fatigue and alopecia, no typical Hx of GPA. Had +TAMIKA, +anti-SM, +anti-COSMETIC MAKER, and +anti-chromatin antibodies, low C3 and C4, [...] then downtrended to 2.61 on transfer from [facility] Hepatitis and HIV screens neg, C3 68 / C4 <8 , CXR didn't show acute changes Labs from [facility] reviewed, it showed C-ANCA 1:40, MPO 25.7, PR3 8, ESR 100, TAMIKA +, Anti COSMETIC MAKER>8, Anti SM 1.5, Chromatin 4.1, neg DNA Update: Cr 2.45 today. 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 - Can be discharged from Rheumatology standpoint Pt seen, examined, and discussed with attending, Dr. Tijerina Thank you for the consult, please don't hesitate to contact me if you have any questions. Vinayak Drummond M.D. Rheumatology Fellow, PGY 4 Consult Rheumatology pager # [phone] Faye Signature/Cosignature/Atte station: Note Completion: Attending AttestationI [...] the note. I personally evaluated the patient [id number] Electronic Signatures: Corina Tijerina) (Signed 13-Mar-2019 07:57) Authored: Signature/Cosignature/Atte station Co-Signer: Service, Subjective Data, Objective Data, Assessment and Plan, Signature/Cosignature/Atte station Vinayak Drummond (Fellow)) (Signed 12-Mar-2019 21:41) Authored: Service, Subjective Data, Objective Data, Assessment and Plan, Signature/Cosignature/Atte station Last Updated: 13-Mar-2019 07:57 by Corina Tijerina) Normal [facility] Discharge [id number] 019 Discharge Profile2 Discharge Orders: Anticipated Discharge Date: Anticipated Discharge [id number]-[id number] Anticipated Discharge Time12:40 Activity: activity as tolerated. May shower. May return to school/work Instructions: May drive. Diet: Dietregular Labs 1: Lab Test(s)Basic Metabolic Panel, CBC Date To Be Drawn03/20, 03/27, 04/03 Call Results ToDr. Wilberto Tyson -- Warehouse Associate Call Provider If (Homegoing Patients): Breathing faster [...] old female who is admitted here from [facility] for management of SLE nephritis vs [...] 2017). Further lab work-up demonstrated +TAMIKA, +anti-Sm, anti-COSMETIC MAKER, and +anti-chromatin antibodies. Labs also demonstrated low C3 (unclear value), low C4 (unclear value) , with elevated Cr (3.2) (suggestive of lupus nephritis), and was subsequently admitted for concern for nephritis (lupus) vs vasculitis. On admission to [facility], Cr was 3.57 and was started [...] the glomeruli and no significant extraglomerular staining. [place] and lambda stain were equally shown throughout the tubulointerstitium. 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 Patient was also hypertensive on admission (SBP 170s) and was reduced to 130s after starting on amlodipine 10mg/daily. Bactrim was started for PCP prophylaxis. On admission to [facility], pt report no symptoms associated with lupus [...] as an outpatient until follow up with equine vet Dr. Tyson. Vitally stable on day of discharge. Things to Follow Up: - PET scan final read by PCP, rheum and nephro - remember to uptitrate cellcept from 500mg twice a day for 7 days then 1000mg twice a day for 7 days and 1500mg twice a day for 7 days. - please obtain CBC and RFP weekly until follow up with equine vet Provider FINAL REVIEW of Orders: Final Review: Final Review of Medication Reconciliation and Orders Completedby Physician Reviewing ProviderLia Leonardo MD (Resident) at 13-Mar-2019 14:19:15 Appointments: Follow-Up Appointment 01: Physician/Dept/ServicePCP Call to Schedule inOffice requests you call to schedule appointment CommentsPlease call to schedule your follow up with your primary care provider. [employer] unable to locate primary care information. Follow-Up Appointment 02: Physician/Dept/ServiceDr. Wilberto Tyson Nephrology Reason for ReferralSLE nephritis vs. ANCA vasculitis Scheduled Date/Onvt22-Qvh-7116 12:[address] [place] [id number] [place] [phone] (closest location & Provider) 39 miles Phone [phone] CommentsPlease arrive 15 minutes early to complete registration & bring insurance card & photo id. Please call the office if unable to keep this appointment. Follow-Up Appointment 03: Physician/Dept/Service. Alberto Lechuga Rheumatology Reason for ReferralSLE nephritis vs. ANCA vasculitis Call to Schedule inOffice requests you call to schedule appointment [id number] [facility] [address] [place] [address] (Closest Location) Phone [phone] CommentsOffice prefer patient call to schedule new patient visit. Please have insurance information available. Electronic Signatures: Yari Killian (PT ACC REP) (Signed 12-Mar-2019 14:03) Authored: Appointments Lia Leonardo ( (Resident)) (Signed 13-Mar-2019 14:19) Authored: Discharge Orders, Hospital Course (Home Care/Gold Form), Provider FINAL REVIEW of Orders, Appointments, Gold Form - Florist Designer Summary Last Updated: 13-Mar-2019 14:19 by Lia Leonardo ( (Resident)) Normal [facility] GLUCOSE-POCTon 03-12-2019 Glucose [Mass/Vol] 127 mg/dL High 74 - 99 [facility] Comment on above: Performed By: #### E SRWS #### [facility] [address] [place] [address] PET TUMORS / NOT PREVIOUSLY LISTEDon 03-12-2019 PET TUMORS / NOT PREVIOUSLY LISTED Patient Name: BHUMIKA WHEATLEY STUDY: PET TUMORS / NOT PREVIOUSLY LISTED; 03/12/2019 12:58 pm INDICATION: multiple previous cancers, presenting with autoimmune syndrome with labs equivocal for ANCA vasculitis vs lupus nephritis. ruling out cancer associated phenomena. COMPARISON: None. ACCESSION NUMBER(S): [id number] ORDERING CLINICIAN: SUNNY VICENTE TECHNIQUE: DIVISION OF [...] CODING: Initial Treatment Strategy (PI) CALIBRATION: Dose Bepufdgvt-lv-Gswc Interval (mins): 62 min Mediastinal bloodpool SUV [...] as stated. This study was interpreted at [facility] Electronically signed by: DOUG ARGUETA MD Normal [facility] RENAL FUNCTION PANELon 03-12 Albumin [Mass/Vol] 2.9 g/dL Low 3.4 - 5.0 [facility] Comment on above: Performed By: #### P TINR #### [facility] [address] [place] [address] Anion gap [Moles/Vol] 18 mmol/L Normal 10 - 20 [facility] Comment on above: Performed By: #### P TINR #### [facility] [address] [place] [address] Calcium [Mass/Vol] 8.6 mg/dL Normal 8.6 - 10.6 [facility] Comment on above: Performed By: #### P TINR #### [facility] [address] [place] [address] Chloride [Moles/Vol] 104 mmol/L Normal 98 - 107 [facility] Comment on above: Performed By: #### P TINR #### [facility] [address] [place] [address] Creatinine [Mass/Vol] 2.45 mg/dL High 0.50 - 1.05 [facility] Comment on above: Performed By: #### P TINR #### [facility] [address] [place] [address] GFR- AM. 24 mL/min/1.73m2 Abnormal >60 [facility] Comment on above: Result Comment: CALC ULATIONS OF ESTIMATED GFR ARE PERFORMED USING THE MDRD STUDY EQUATION FOR THE IDMS-TRACEABLE CREATININE METHODS. CLIN CHEM 2007;53:766-72 Performed By: #### P TINR #### [facility] [address] [place] [address] GFR-NON AM. 20 mL/min/1.73m2 Abnormal >60 [facility] Comment on above: Performed By: #### P TINR #### [facility] [address] [place] [address] Glucose [Mass/Vol] 123 mg/dL High 74 - 99 [facility] Comment on above: Performed By: #### P TINR #### [facility] [address] [place] [address] HCO3 (Bld) [Moles/Vol] 22 mmol/L Normal 21 - 32 [facility] Comment on above: Performed By: #### P TINR #### [facility] [address] [place] [address] Phosphate [Mass/Vol] 5.0 mg/dL High 2.5 - 4.9 [facility] Comment on above: Result Comment: The performance characteristics of phosphorus testing in heparinized plasma have been validated by the individual laboratory site where testing is performed. Testing on heparinized plasma is not approved by the FDA; however, such approval is not necessary. Performed By: #### P TINR #### [facility] [address] [place] [address] Potassium [Moles/Vol] 4.8 mmol/L Normal 3.5 - 5.3 [facility] Comment on above: Performed By: #### P TINR #### [facility] [address] [place] [address] Sodium [Moles/Vol] 139 mmol/L Normal 136 - 145 [facility] Comment on above: Performed By: #### P TINR #### [facility] [address] [place] [address] Urea nitrogen [Mass/Vol] 87 mg/dL High 6 - 23 [facility] Comment on above: Performed By: #### P TINR #### [facility] [address] [place] [address] CBC AND DIFFERENTIALon 03-11 % AUTOMATED IMMATURE GRAN 3.4 % High 0.0 - 0.9 [facility] Comment on above: Result Comment: Perc ent differential counts (%) should be interpreted in the context of the absolute cell counts (cells/L). Performed By: #### E SRWS #### [facility] [address] [place] [address] Basophils (Bld) [#/Vol] 0.02 10*3/uL Normal 0.00 - 0.10 [facility] Comment on above: Performed By: #### E SRWS #### [facility] [address] [place] [address] Basophils/100 WBC (Bld) 0.1 % Normal 0.0 - 2.0 [facility] Comment on above: Performed By: #### E SRWS #### [facility] [address] [place] [address] Eosinophils (Bld) [#/Vol] 0.00 10*3/uL Normal 0.00 - 0.70 [facility] Comment on above: Performed By: #### E SRWS #### [facility] [address] [place] [address] Eosinophils/100 WBC (Bld) 0.0 % Normal 0.0 - 6.0 [facility] Comment on above: Performed By: #### E SRWS #### [facility] [address] [place] [address] Erythrocyte distribution width (RBC) [Ratio] 16.0 % High 11.5 - 14.5 [facility] Comment on above: Performed By: #### E SRWS #### [facility] [address] [place] [address] Hematocrit (Bld) [Volume fraction] 26.2 % Low 36.0 - 46.0 [facility] Comment on above: Performed By: #### E SRWS #### [facility] [address] [place] [address] Hemoglobin (Bld) [Mass/Vol] 8.0 g/dL Low 12.0 - 16.0 [facility] Comment on above: Performed By: #### E SRWS #### [facility] [address] [place] [address] Lymphocytes (Bld) [#/Vol] 0.44 10*3/uL Low 1.20 - 4.80 [facility] Comment on above: Performed By: #### E SRWS #### [facility] [address] [place] [address] Lymphocytes/100 WBC (Bld) 3.2 % Normal 13.0 - 44.0 [facility] Comment on above: Performed By: #### E SRWS #### [facility] [address] [place] [address] MCHC (RBC) [Mass/Vol] 30.5 g/dL Low 32.0 - 36.0 [facility] Comment on above: Performed By: #### E SRWS #### [facility] [address] [place] [address] MCV (RBC) [Entitic vol] 94 fL Normal 80 - 100 [facility] Comment on above: Performed By: #### E SRWS #### [facility] [address] [place] [address] Monocytes (Bld) [#/Vol] 0.58 10*3/uL Normal 0.10 - 1.00 [facility] Comment on above: Performed By: #### E SRWS #### [facility] [address] [place] [address] Monocytes/100 WBC (Bld) 4.2 % Normal 2.0 - 10.0 [facility] Comment on above: Performed By: #### E SRWS #### [facility] [address] [place] [address] Neutrophils (Bld) [#/Vol] 12.37 10*3/uL High 1.20 - 7.70 [facility] Comment on above: Performed By: #### E SRWS #### [facility] [address] [place] [address] Neutrophils/100 WBC (Bld) 89.1 % Normal 40.0 - 80.0 [facility] Comment on above: Performed By: #### E SRWS #### [facility] [address] [place] [address] Nucleated RBC/100 WBC (Bld) [Ratio] 0.0 /100 WBC Normal 0.0-0.0 [facility] Comment on above: Performed By: #### E SRWS #### [facility] [address] [place] [address] Platelets (Bld) [#/Vol] 223 10*3/uL Normal 150 - 450 [facility] Comment on above: Performed By: #### E SRWS #### [facility] [address] [place] [address] RBC (Bld) [#/Vol] 2.79 x10E12/L Low 4.00 - 5.20 [facility] Comment on above: Performed By: #### E SRWS #### [facility] [address] [place] [address] WBC (Bld) [#/Vol] 13.9 10*3/uL High 4.4 - 11.3 [facility] Comment on above: Performed By: #### E SRWS #### [facility] [address] [place] [address] Daily Progress Note-Medicine on 03-11-2019 Daily Progress Note-Medicine Service: Medicine Subjective Data: BHUMIKA WHEATLEY is a 68 year old Female who is Hospital Day # 4. Overnight Events: Patient had an uneventful night. Objective Data: Objective Information: ---- Intake and Output ----- Mn/Dy/Year TimeIntakeOutputNet Mar 11, 2019 6:00 [id number] Mar 10, 2019 10:00 [id number] The Intake and Output Totals for the last 24 hours are: IntakeOutputNet [id number] T PRBPSpO2 Value36.44977230/7799% Date/Time03/11 15: 15: 15: 15: 15:40 Range(36.1C [...] reviewed these laboratory results: Glucose_POCT Trending View [id number]-Lkh-9561 16:17:00 11-Mar-2019 07:02:00 10-Mar-2019 21:23:00 10-Mar-2019 16:26:00 10-Mar-2019 07:40:00 09-Mar-2019 20:41:00 Glucose-POCT88 152 H 155 H 161 H 137 H 263 H Complete Blood Count + Differential Trending View Ntrngh89-Ylg-9203 07:10:00 10-Mar-2019 07:56:00 White Blood Cell Count13.9 H 14.6 H Nucleated Erythrocyte Count0.0 0.0 Red Blood Cell Count2.79 L 2.73 L HGB8.0 L 8.3 L HCT26.2 L 27.3 L MCV94 100 MCHC30.5 L 30.4 L ONH500 223 RDW-CV16.0 H 16.4 H Neutrophil %89.1 87.2 Immature Granulocytes %3.4 H 3.0 H Lymphocyte %3.2 4.1 Monocyte %4.2 5.4 Eosinophil %0.0 0.0 Basophil %0.1 0.3 Neutrophil Count12.37 H 12.69 H Lymphocyte Count0.44 L 0.60 L Monocyte Count0.58 0.78 Eosinophil Count0.00 0.00 Basophil Count0.02 0.05 Renal Function Panel Trending View [id number]-Omw-3270 07:10:00 10-Mar-2019 07:56:00 Glucose, Gryte807 H 129 H NA138 139 K4.5 4.4 CL103 103 Bicarbonate, Serum23 23 Anion Gap, Serum17 17 BUN90 H 94 HH CREAT2.80 H 2.84 H GFR-Non Mnctmhtu88 A 16 A GFR- Ilsbelqb17 A 19 A Calcium, Serum8.6 8.7 Phosphorus, [...] Updated: 11-Mar-2019 16:39 by Wilberto Morgan) Normal [facility] GLUCOSE-POCTon 03-11-2019 Glucose [Mass/Vol] 156 mg/dL High 74 - 99 [facility] Comment on above: Performed By: #### E SRWS #### [facility] [address] [place] [address] Glucose [Mass/Vol] 88 mg/dL Normal 74 - 99 [facility] Comment on above: Performed By: #### E SRWS #### [facility] [address] [place] [address] Glucose [Mass/Vol] 152 mg/dL High 74 - 99 [facility] Comment on above: Performed By: #### E SRWS #### [facility] [address] [place] [address] RENAL FUNCTION PANELon 03-11 Albumin [Mass/Vol] 2.9 g/dL Low 3.4 - 5.0 [facility] Comment on above: Performed By: #### E SRWS #### [facility] [address] [place] [address] Anion gap [Moles/Vol] 17 mmol/L Normal 10 - 20 [facility] Comment on above: Performed By: #### E SRWS #### [facility] [address] [place] [address] Calcium [Mass/Vol] 8.6 mg/dL Normal 8.6 - 10.6 [facility] Comment on above: Performed By: #### E SRWS #### [facility] [address] [place] [address] Chloride [Moles/Vol] 103 mmol/L Normal 98 - 107 [facility] Comment on above: Performed By: #### E SRWS #### [facility] [address] [place] [address] Creatinine [Mass/Vol] 2.80 mg/dL High 0.50 - 1.05 [facility] Comment on above: Performed By: #### E SRWS #### [facility] [address] [place] [address] GFR- AM. 21 mL/min/1.73m2 Abnormal >60 [facility] Comment on above: Result Comment: CALC ULATIONS OF ESTIMATED GFR ARE PERFORMED USING THE MDRD STUDY EQUATION FOR THE IDMS-TRACEABLE CREATININE METHODS. CLIN CHEM 2007;53:766-72 Performed By: #### E SRWS #### [facility] [address] [place] [address] GFR-NON AM. 17 mL/min/1.73m2 Abnormal >60 [facility] Comment on above: Performed By: #### E SRWS #### [facility] [address] [place] [address] Glucose [Mass/Vol] 134 mg/dL High 74 - 99 [facility] Comment on above: Performed By: #### E SRWS #### [facility] [address] [place] [address] HCO3 (Bld) [Moles/Vol] 23 mmol/L Normal 21 - 32 [facility] Comment on above: Performed By: #### E SRWS #### [facility] [address] [place] [address] Phosphate [Mass/Vol] 4.7 mg/dL Normal 2.5 - 4.9 [facility] Comment on above: Result Comment: The performance characteristics of phosphorus testing in heparinized plasma have been validated by the individual laboratory site where testing is performed. Testing on heparinized plasma is not approved by the FDA; however, such approval is not necessary. Performed By: #### E SRWS #### [facility] [address] [place] [address] Potassium [Moles/Vol] 4.5 mmol/L Normal 3.5 - 5.3 [facility] Comment on above: Performed By: #### E SRWS #### [facility] [address] [place] [address] Sodium [Moles/Vol] 138 mmol/L Normal 136 - 145 [facility] Comment on above: Performed By: #### E SRWS #### [facility] [address] [place] [address] Urea nitrogen [Mass/Vol] 90 mg/dL High 6 - 23 [facility] Comment on above: Performed By: #### E SRWS #### [facility] [address] [place] [address] T-SPOT TBon 03-11-2019 NIL[NEG]CONTROL SPOT COUNT Passed Normal [facility] Comment on above: Performed By: #### E SRWS #### [facility] [address] [place] [address] PANEL A SPOT COUNT 2 Normal [facility] Comment on above: Performed By: #### E SRWS #### [facility] [address] [place] [address] PANEL B SPOT COUNT 0 Normal [facility] Comment on above: Performed By: #### E SRWS #### [facility] [address] [place] [address] POS CONTROL SPOT COUNT Passed Normal [facility] Comment on above: Performed By: #### E SRWS #### [facility] [address] [place] [address] T-SPOT.TB INTERP Negative Normal Normal Value: Negative [facility] Comment on above: Result Comment: A ne [...] test. Performed By: #### E SRWS #### [facility] [address] [place] [address] TAMIKA TITER/LUIS PANELon 2018 ANTI-CENTROMERE <0.2 Normal [facility] Comment on above: Result Comment: REF VALUES < 1.0 = NEGATIVE >=1.0 = POSITIVE Performed By: #### P TINR #### [facility] [address] [place] [address] ANTI-CHROMATIN 4.7 AI Abnormal [facility] Comment on above: Result Comment: REF VALUES < 1.0 = NEGATIVE >=1.0 = POSITIVE Performed By: #### P TINR #### [facility] [address] [place] [address] ANTI-DNA [DS] 2.0 IU/mL Normal [facility] Comment on above: Result Comment: REF VALUES NEGATIVE: <= 4 IU/ML EQUIVOCAL: 5- 9 IU/ML POSITIVE: >=10 IU/ML Performed By: #### P TINR #### [facility] [address] [place] [address] ANTI-JAMIA-1 <0.2 Normal [facility] Comment on above: Result Comment: REF VALUES < 1.0 = NEGATIVE >=1.0 = POSITIVE Performed By: #### P TINR #### [place] [id number] [place] [address] ANTI-RIBOSOMAL P <0.2 Normal [facility] Comment on above: Result Comment: REF VALUES < 1.0 = NEGATIVE >=1.0 = POSITIVE Performed By: #### P TINR #### [place] [address] [place] [address] ANTI-COSMETIC MAKER >8.0 Abnormal [facility] Comment on above: Result Comment: REF VALUES < 1.0 = NEGATIVE >=1.0 = POSITIVE Performed By: #### P TINR #### [facility] [address] [place] [address] ANTI-SCL-70 <0.2 Normal [facility] Comment on above: Result Comment: REF VALUES < 1.0 = NEGATIVE >=1.0 = POSITIVE Performed By: #### P TINR #### [facility] [address] [place] [address] ANTI-SM 1.1 AI Abnormal [facility] Comment on above: Result Comment: REF VALUES < 1.0 = NEGATIVE >=1.0 = POSITIVE Performed By: #### P TINR #### [facility] [address] [place] [address] ANTI-SM/COSMETIC MAKER >8.0 Abnormal [facility] Comment on above: Result Comment: REF VALUES < 1.0 = NEGATIVE >=1.0 = POSITIVE Performed By: #### P TINR #### [facility] [address] [place] [address] ANTI-SSA <0.2 Normal [facility] Comment on above: Result Comment: REF VALUES < 1.0 = NEGATIVE >=1.0 = POSITIVE Performed By: #### P TINR #### [facility] [address] [place] [address] ANTI-SSB <0.2 Normal [facility] Comment on above: Result Comment: REF VALUES < 1.0 = NEGATIVE >=1.0 = POSITIVE Performed By: #### P TINR #### [facility] [address] [place] [address] CBC AND DIFFERENTIALon 03-10 % AUTOMATED IMMATURE GRAN 3.0 % High 0.0 - 0.9 [facility] Comment on above: Result Comment: Perc ent differential counts (%) should be interpreted in the context of the absolute cell counts (cells/L). Performed By: #### C BCDF #### [facility] [address] [place] [address] Basophils (Bld) [#/Vol] 0.05 10*3/uL Normal 0.00 - 0.10 [facility] Comment on above: Performed By: #### C BCDF #### [facility] [address] [place] [address] Basophils/100 WBC (Bld) 0.3 % Normal 0.0 - 2.0 [facility] Comment on above: Performed By: #### C BCDF #### [facility] [address] [place] [address] Eosinophils (Bld) [#/Vol] 0.00 10*3/uL Normal 0.00 - 0.70 [facility] Comment on above: Performed By: #### C BCDF #### [facility] [address] [place] [address] Eosinophils/100 WBC (Bld) 0.0 % Normal 0.0 - 6.0 [facility] Comment on above: Performed By: #### C BCDF #### [facility] [address] [place] [address] Erythrocyte distribution width (RBC) [Ratio] 16.4 % High 11.5 - 14.5 [facility] Comment on above: Performed By: #### C BCDF #### [facility] [address] [place] [address] Hematocrit (Bld) [Volume fraction] 27.3 % Low 36.0 - 46.0 [facility] Comment on above: Performed By: #### C BCDF #### [facility] [address] [place] [address] Hemoglobin (Bld) [Mass/Vol] 8.3 g/dL Low 12.0 - 16.0 [facility] Comment on above: Performed By: #### C BCDF #### [facility] [address] [place] [address] Lymphocytes (Bld) [#/Vol] 0.60 10*3/uL Low 1.20 - 4.80 [facility] Comment on above: Performed By: #### C BCDF #### [facility] [address] [place] [address] Lymphocytes/100 WBC (Bld) 4.1 % Normal 13.0 - 44.0 [facility] Comment on above: Performed By: #### C BCDF #### [facility] [address] [place] [address] MCHC (RBC) [Mass/Vol] 30.4 g/dL Low 32.0 - 36.0 [facility] Comment on above: Performed By: #### C BCDF #### [facility] [address] [place] [address] MCV (RBC) [Entitic vol] 100 fL Normal 80 - 100 [facility] Comment on above: Performed By: #### C BCDF #### [facility] [address] [place] [address] Monocytes (Bld) [#/Vol] 0.78 10*3/uL Normal 0.10 - 1.00 [facility] Comment on above: Performed By: #### C BCDF #### [facility] [address] [place] [address] Monocytes/100 WBC (Bld) 5.4 % Normal 2.0 - 10.0 [facility] Comment on above: Performed By: #### C BCDF #### [facility] [address] [place] [address] Neutrophils (Bld) [#/Vol] 12.69 10*3/uL High 1.20 - 7.70 [facility] Comment on above: Performed By: #### C BCDF #### [facility] [address] [place] [address] Neutrophils/100 WBC (Bld) 87.2 % Normal 40.0 - 80.0 [facility] Comment on above: Performed By: #### C BCDF #### [facility] [address] [place] [address] Nucleated RBC/100 WBC (Bld) [Ratio] 0.0 /100 WBC Normal 0.0-0.0 [facility] Comment on above: Performed By: #### C BCDF #### [facility] [address] [place] [address] Platelets (Bld) [#/Vol] 223 10*3/uL Normal 150 - 450 [facility] Comment on above: Performed By: #### C BCDF #### [facility] [address] [place] [address] RBC (Bld) [#/Vol] 2.73 x10E12/L Low 4.00 - 5.20 [facility] Comment on above: Performed By: #### C BCDF #### [facility] [address] [place] [address] WBC (Bld) [#/Vol] 14.6 10*3/uL High 4.4 - 11.3 [facility] Comment on above: Performed By: #### C BCDF #### [facility] [address] [place] [address] Daily Progress Note-Medicine on 03-10-2019 Daily Progress Note-Medicine Service: Medicine Subjective Data: BHUMIKA WHEATLEY is a 68 year old Female who is Hospital Day # 3. Overnight Events: Patient had an uneventful night. Additional Information: feels well Objective Data: Objective Information: ---- Intake and Output ----- Mn/Dy/Year TimeIntakeOutchristus st. [facility] Mar 10, 2019 6:00 [id number] Mar 09, 2019 10:00 [id number] Mar 09, 2019 2:00 [id number] The Intake and Output Totals for the last 24 hours are: IntakeOutputNet [id number] T PRBPSpO2 Value36.95235728/6997% Date/Time03/10 7: 7: 7: 7: 7:34 Range(36.1C [...] laboratory results: Renal Function Panel Trending View Ywqwtc16-Kwu-4350 07:56:00 09-Mar-2019 07:07:00 Lab Comment:CRITICAL BUN CALLED TO KELLY FRIAS--RB 2ID, 03/10/2019 09:08 Glucose, Ibfbu519 H 128 H NA139 140 K4.4 4.6 CL103 103 Bicarbonate, Serum23 25 Anion Gap, Serum17 17 BUN94 HH 88 H CREAT2.84 H 2.66 H GFR-Non Veiqmwbz83 A 18 A GFR- Ztkqdtse64 A 22 A Calcium, Serum8.7 8.7 Phosphorus, [...] 0.00 Basophil Count 0.05 Glucose_POCT Trending View Ubpnlz41-Drp-7354 07:40:00 09-Mar-2019 20:41:00 09-Mar-2019 18:14:00 09-Mar-2019 12:04:00 Glucose-QNGZ039 H 263 H 130 H 110 H [...] Updated: 10-Mar-2019 12:59 by Wilberto Morgan) Normal [facility] GLUCOSE-POCTon 03-10-2019 Glucose [Mass/Vol] 155 mg/dL High 74 - 99 [facility] Comment on above: Performed By: #### E SRWS #### [facility] [address] [place] [address] Glucose [Mass/Vol] 161 mg/dL High 74 - 99 [facility] Comment on above: Performed By: #### E SRWS #### [facility] [address] [place] [address] Glucose [Mass/Vol] 137 mg/dL High 74 - 99 [facility] Comment on above: Performed By: #### C BCDF #### [facility] [address] [place] [address] Nutrition Therapy-Assessment on 03-10-2019 Nutrition Therapy-Assessment Assessment Subjective/Objective: Note Type: Assessment Note Authored by: Registered Dietitian Assistant Farm Operations Manager Pager Number: [phone] Nutrition Note: Consult received via nursing admit [...] 0.00 Basophil Count 0.05 Glucose_POCT Trending View [id number] 07:40:00 09-Mar-2019 20:41:00 09-Mar-2019 18:14:00 09-Mar-2019 12:04:00 [id number] H 263 H 130 H 110 H [...] malnutrition Etiology: chronic illness Estimated Needs: kcals/day: 9366-8889 gms protein/day: 65 mL fluid/day: per MD [...] nutrition and maintaining lower sodium diet more long-term. Resource: Academy of nutrition and dietetics nutrition [...] nutrition and maintaining lower sodium diet more long-term. Resource: Academy of nutrition and dietetics nutrition [...] 14:51 by Belkis Handy (MARII, DOUG) Normal [facility] RENAL FUNCTION PANELon 03-10 Albumin [Mass/Vol] 2.9 g/dL Low 3.4 - 5.0 [facility] Comment on above: Order Comment: YANY BO BUN CALLED TO KELLY CARTY 2ID, 03/10/2019 09:08 Performed By: #### C BCDF #### [facility] [address] [place] [address] Anion gap [Moles/Vol] 17 mmol/L Normal 10 - 20 [facility] Comment on above: Order Comment: YANY BO BUN CALLED TO KELLY CARTY 2ID, 03/10/2019 09:08 Performed By: #### C BCDF #### [facility] [address] [place] [address] Calcium [Mass/Vol] 8.7 mg/dL Normal 8.6 - 10.6 [facility] Comment on above: Order Comment: YANY BO BUN CALLED TO KELLY FRIAS-RB 2ID, 03/10/2019 09:08 Performed By: #### C BCDF #### [facility] [address] [place] [address] Chloride [Moles/Vol] 103 mmol/L Normal 98 - 107 [facility] Comment on above: Order Comment: CRITI BO BUN CALLED TO KELLY FRIAS--RB 2ID, 03/10/2019 09:08 Performed By: #### C BCDF #### [facility] [address] [place] [address] Creatinine [Mass/Vol] 2.84 mg/dL High 0.50 - 1.05 [facility] Comment on above: Order Comment: CRITI BO BUN CALLED TO KELLY FRIAS-RB 2ID, 03/10/2019 09:08 Performed By: #### C BCDF #### [facility] [address] [place] [address] GFR- AM. 19 mL/min/1.73m2 Abnormal >60 [facility] Comment on above: Order Comment: CRIZACH BO BUN CALLED TO KELLY FRIAS-RB 2ID, 03/10/2019 09:08 Result Comment: CALC ULATIONS OF ESTIMATED GFR ARE PERFORMED USING THE MDRD STUDY EQUATION FOR THE IDMS-TRACEABLE CREATININE METHODS. CLIN CHEM 2007;53:766-72 Performed By: #### C BCDF #### [facility] [address] [place] [address] GFR-NON AM. 16 mL/min/1.73m2 Abnormal >60 [facility] Comment on above: Order Comment: CRITI BO BUN CALLED TO KELLY FRIAS--RB 2ID, 03/10/2019 09:08 Performed By: #### C BCDF #### [facility] [address] [place] [address] Glucose [Mass/Vol] 129 mg/dL High 74 - 99 [facility] Comment on above: Order Comment: CRITI BO BUN CALLED TO KELLY ALTAGRACIA--RB 2ID, 03/10/2019 09:08 Performed By: #### C BCDF #### [place] [address] [place] [address] HCO3 (Bld) [Moles/Vol] 23 mmol/L Normal 21 - 32 [facility] Comment on above: Order Comment: CRITI BO BUN CALLED TO KELLY ALTAGRACIA--RB 2ID, 03/10/2019 09:08 Performed By: #### C BCDF #### [facility] [address] [place] [address] Phosphate [Mass/Vol] 4.5 mg/dL Normal 2.5 - 4.9 [facility] Comment on above: Order Comment: CRITI BO BUN CALLED TO KELLY ALTAGRACIA--RB 2ID, 03/10/2019 09:08 Result Comment: The performance characteristics of phosphorus testing in heparinized plasma have been validated by the individual laboratory site where testing is performed. Testing on heparinized plasma is not approved by the FDA; however, such approval is not necessary. Performed By: #### C BCDF #### [facility] [address] [place] [address] Potassium [Moles/Vol] 4.4 mmol/L Normal 3.5 - 5.3 [facility] Comment on above: Order Comment: CRITI BO BUN CALLED TO KELLY FRIAS--RB 2ID, 03/10/2019 09:08 Performed By: #### C BCDF #### [facility] [address] [place] [address] Sodium [Moles/Vol] 139 mmol/L Normal 136 - 145 [facility] Comment on above: Order Comment: CRITI BO BUN CALLED TO KELLY ALTAGRACIA--RB 2ID, 03/10/2019 09:08 Performed By: #### C BCDF #### [facility] [address] [place] [address] Urea nitrogen [Mass/Vol] 94 mg/dL Critically high 6 - 23 [facility] Comment on above: Order Comment: CRITI BO BUN CALLED TO KELLY ALTAGRACIA--RB 2ID, 03/10/2019 09:08 Result Comment: CRIT ICAL BUN CALLED TO KELLY FRIAS--RB 2ID, 03/10/2019 09:08 Performed By: #### C BCDF #### [facility] [address] [place] [address] TAMIKA WITH REFLEX TO ENAon TAMIKA WITH REFLEX TO LUIS Positive Abnormal NEGATIVE [facility] Comment on above: Performed By: #### P TINR #### [facility] [address] [place] [address] ANTI-DNA [DS]on 03-09-2019 ANTI-DNA [DS] 2.0 IU/mL Normal [facility] Comment on above: Result Comment: REF VALUES NEGATIVE: <= 4 IU/ML EQUIVOCAL: 5- 9 IU/ML POSITIVE: >=10 IU/ML Performed By: #### D NADS ####[id number] [place] [address] C3 COMPLEMENTon 03-09-2019 C3 COMPLEMENT 68 mg/dL Low 87 - 200 [facility] Comment on above: Performed By: #### C 3 ####[id number] [place] [address] C4 COMPLEMENTon 03-09-2019 C4 COMPLEMENT <8 Abnormal 10 - 50 [facility] Comment on above: Performed By: #### C 4 ####[id number] [place] [address] CBCon 03-09-2019 Erythrocyte distribution width (RBC) [Ratio] 16.1 % High 11.5 - 14.5 [facility] Comment on above: Performed By: #### C BC ####[id number] [place] [address] Hematocrit (Bld) [Volume fraction] 25.9 % Low 36.0 - 46.0 [facility] Comment on above: Performed By: #### C BC ####[id number] [place] [address] Hemoglobin (Bld) [Mass/Vol] 8.6 g/dL Low 12.0 - 16.0 [facility] Comment on above: Performed By: #### C BC ####[id number] [place] [address] MCHC (RBC) [Mass/Vol] 33.2 g/dL Normal 32.0 - 36.0 [facility] Comment on above: Performed By: #### C BC ####[id number] [place] [address] MCV (RBC) [Entitic vol] 93 fL Normal 80 - 100 [facility] Comment on above: Performed By: #### C BC ####[id number] [place] [address] Nucleated RBC/100 WBC (Bld) [Ratio] 0.0 /100 WBC Normal 0.0-0.0 [facility] Comment on above: Performed By: #### C BC ####[id number] [place] [address] Platelets (Bld) [#/Vol] 229 10*3/uL Normal 150 - 450 [facility] Comment on above: Performed By: #### C BC ####[id number] [place] [address] RBC (Bld) [#/Vol] 2.80 x10E12/L Low 4.00 - 5.20 [facility] Comment on above: Performed By: #### C BC ####[id number] [place] [address] WBC (Bld) [#/Vol] 12.7 10*3/uL High 4.4 - 11.3 [facility] Comment on above: Performed By: #### C BC ####[id number] [place] [address] Daily Progress Note-Medicine on 03-09-2019 Daily Progress [...] ----- Mn/Dy/Year TimeIntakeOutputNet Mar 09, 2019 2:00 [id number] Mar 09, 2019 6:00 [id number] Mar 08, 2019 10:00 [id number] The Intake and Output Totals for the last 24 hours are: IntakeOutputNet [id number] Physical Exam: Constitutional: Well developed, awake/alert/oriented x3, [...] SLE nephritis: low C3, C4, +TAMIKA, +anti-SM, +anti-COSMETIC MAKER, +anti-chromatin ANCA: +ANCA (low positive), +PR3 (low positive) - less likely - Prophylaxis: Bactrim, PV13 Vaccine - Autoimmune labs (ANCA reflex to MPO, PR3, TAMIKA reflex LUIS) - Transfer of medical records regarding labs from [facility] - CBC - CXR (evaluation for c-ANCA [...] this note. I personally evaluated the patient [id number] Comments/ Additional Findings Ms. Wheatley is a [...] this setting. Electronic Signatures: Romero Montilla (MED [employer]) (Signed 09-Mar-2019 16:31) Authored: Service, Assessment/Plan Review, Subjective Data, Objective Data, Assessment and Plan, Signature/Cosignature/Atte station Kaleb Duenas) (Signed 09-Mar-2019 21:30) Authored: Signature/Cosignature/Atte station Co-Signer: Assessment/Plan Review, Subjective Data, Objective Data, Assessment and Plan, Signature/Cosignature/Atte station Last Updated: 09-Mar-2019 21:30 by Kaleb Duenas) Normal [facility] Daily Progress Note-Renalon 03-09-2019 Daily Progress Note-Renal Service: Renal Subjective Data: BHUMIKA WHEATLEY is a 68 year old Female who is Hospital Day # 2. No acute overnight events, patient resting in room. Has no current symptoms besides decreased appetite, which she contributes to the renal diet. Objective Data: Objective Information: T PRBPSpO2 [id number]/6992% Date/Time03/09 7: 7: 7: 7: 7:48 Range(36C [...] 20.546 ---- Intake and Output ----- Mn/Dy/Year [facility] Mar 09, 2019 6:00 [id number] Mar 08, 2019 10:00 [id number] The Intake and Output Totals for the last 24 hours are: IntakeOutputNet [id number] Physical Exam: Constitutional: Well developed, awake/alert/oriented x3, [...] Reference Range: STRAW,YELLOW Appearance, Urine HAZY Specific Beacon, Urine 1.008 pH, Urine 5.0 Protein, Urine [...] in situ of skin who presented to [facility] 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 She also had low C3 and C4 suggesting active phase of SLE with recent lab results indicating +TAMIKA, +anti-SM, +anti-COSMETIC MAKER, and +anti-chromatin. 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 She was admitted to [facility] for evaluation for plasmapheresis 1. ANCA vasculitis, [...] and slides of the kidney biopsy from [facility] to be read by pathology at [facility] - recommend chest CT to further assess [...] [place] PGY-1 Internal Medicine Renal Consults Pager [phone], doc halo Signature/Cosignature/Atte station: Note Completion: Attending [...] the note. I personally evaluated the patient [id number] Electronic Signatures: Osmin Ann) (Signed 10-Mar-2019 10:47) Authored: Signature/Cosignature/Atte station Co-Signer: Service, Subjective Data, Objective Data, Assessment and Plan, Signature/Cosignature/Atte station Evelyn [place]iedo (Resident)) (Signed 09-Mar-2019 12:24) Authored: Service, Subjective Data, Objective Data, Assessment and Plan, Signature/Cosignature/Atte station Last Updated: 10-Mar-2019 10:47 by Osmin Ann) Normal [facility] Daily Progress Note-Rheumato logyon 03-09-2019 Daily Progress Note-Rheumatology Service: Rheumatology Subjective Data: BHUMIKA WHEATLEY is a 68 year old Female who is Hospital Day # 2. No issues overnight. 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 Pt's symptoms started about a year ago with persistent hematuria, recurrent UTIs accompanied with intermittent flank pain, fatigue, anorexia, alopecia, and weight loss. No symptoms of active SLE other than fatigue and alopecia, no typical Hx of GPA Had +TAMIKA, +anti-SM, +anti-COSMETIC MAKER, and +anti-chromatin antibodies, low C3 and C4, [...] CXR didn't show acute changes Labs from [facility] reviewed today, it showed C-ANCA 1:40, MPO 25.7, PR3 8, ESR 100, TAMIKA +, Anti COSMETIC MAKER>8, Anti SM 1.5, Chromatin 4.1, neg DNA Nephrology team suggest prednisone 60 mg daily and Cellcept 250 mg BID, no plasmaphereses, and they requested to obtain tissue blocks and slides of the kidney biopsy from 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 Tijerina Thank you for the consult, please don't hesitate to contact me if you have any questions. Karime Logan M.D Rheumatology Fellow, PGY 5 Consult Rheumatology pager # [phone] Rheumatology Attending Pt interviewed and examined; above confirmed. The full set of data from [facility] is now available for review and [...] the note. I personally evaluated the patient [id number] Electronic Signatures: Karime Logan (Fellow)) (Signed 09-Mar-2019 20:05) Authored: Service, Subjective Data, Objective Data, Assessment and Plan Corina Tijerina) (Signed 10-Mar-2019 08:20) Authored: Assessment and Plan, Signature/Cosignature/Atte station Co-Signer: Assessment and Plan Last Updated: 10-Mar-2019 08:20 by Corina Tijerina) Normal [facility] GLUCOSE-POCTon 03-09-2019 Glucose [Mass/Vol] 263 mg/dL High 74 - 99 [facility] Comment on above: Performed By: #### C BCDF #### [facility] [id number] [place] [address] Glucose [Mass/Vol] 130 mg/dL High 74 - 99 [facility] Comment on above: Performed By: #### G CHRIS ####[id number] [place] [address] Glucose [Mass/Vol] 110 mg/dL High 74 - 99 [facility] Comment on above: Performed By: #### G CHRIS ####[id number] [place] [address] HEPATITIS B CORE AB-TOTALon 03-09-2019 HEP. B CORE AB-TOTAL NONREACTIVE Normal NONREACTIVE [facility] Comment on above: Result Comment: Vanda ents receiving more than 5 mg/day of biotin may have interference in test results. A sample should be taken no sooner than eight hours after previous dose. Contact the testing laboratory for additional information. Performed By: #### H BCRT ####[id number], [place] HEPATITIS B SURF ABon 2018 HEP B SURF AB < 3.1 Normal <10 [facility] Comment on above: Result Comment: INTE RPRETIVE CRITERIA: <10 mIU/mL....NONREACTIVE >=10 mIU/mL...REACTIVE . Patients receiving more than 5 mg/day of biotin may have interference in test results. A sample should be taken no sooner than eight hours after previous dose. Contact the testing laboratory for additional information. Performed By: #### H BAB3 ####[id number], [place] HEPATITIS B SURFACE AGon HEP.B SURFACE AG NONREACTIVE Normal NONREACTIVE [facility] Comment on above: Result Comment: Vanda ents receiving more than 5 mg/day of biotin may have interference in test results. A sample should be taken no sooner than eight hours after previous dose. Contact the testing laboratory for additional information. Performed By: #### H BSAG ####[id number], [place] Lab Specimen Source Normal [facility] Comment on above: Performed By: #### H BSAG ####[id number], [place] Performed By: #### C 3 ####[id number], [place] Performed By: #### H BCRT ####[id number], [place] Performed By: #### C 4 ####[id number], [place] Performed By: #### H CVAB ####[id number], [place] Performed By: #### H BAB3 ####[id number] [place] [address] HEPATITIS C ABon 03-09-2019 HEPATITIS C AB NON-REACTIVE Normal NONREACTIVE [facility] Comment on above: Result Comment: Vanda ents receiving more than 5 mg/day of biotin may have interference in test results. A sample should be taken no sooner than eight hours after previous dose. Contact the testing laboratory for additional information. Performed By: #### H CVAB ####[id number] [place] [address] RENAL FUNCTION PANELon 03-09 Albumin [Mass/Vol] 2.9 g/dL Low 3.4 - 5.0 [facility] Comment on above: Performed By: #### R ENAL ####[id number] [place] [address] Anion gap [Moles/Vol] 17 mmol/L Normal 10 - 20 [facility] Comment on above: Performed By: #### R ENAL ####[id number] [place] [address] Calcium [Mass/Vol] 8.7 mg/dL Normal 8.6 - 10.6 [facility] Comment on above: Performed By: #### R ENAL ####[id number] [place] [address] Chloride [Moles/Vol] 103 mmol/L Normal 98 - 107 [facility] Comment on above: Performed By: #### R ENAL ####[id number] [place] [address] Creatinine [Mass/Vol] 2.66 mg/dL High 0.50 - 1.05 [facility] Comment on above: Performed By: #### R ENAL ####[id number] [place] [address] GFR- AM. 22 mL/min/1.73m2 Abnormal >60 [facility] Comment on above: Result Comment: CALC ULATIONS OF ESTIMATED GFR ARE PERFORMED USING THE MDRD STUDY EQUATION FOR THE IDMS-TRACEABLE CREATININE METHODS. CLIN CHEM 2007;53:766-72 Performed By: #### R ENAL ####[id number] [place] [address] GFR-NON AM. 18 mL/min/1.73m2 Abnormal >60 [facility] Comment on above: Performed By: #### R ENAL ####[id number] [place] [address] Glucose [Mass/Vol] 128 mg/dL High 74 - 99 [facility] Comment on above: Performed By: #### R ENAL ####[id number] [place] [address] HCO3 (Bld) [Moles/Vol] 25 mmol/L Normal 21 - 32 [facility] Comment on above: Performed By: #### R ENAL ####[id number] [place] [address] Phosphate [Mass/Vol] 4.4 mg/dL Normal 2.5 - 4.9 [facility] Comment on above: Result Comment: The performance characteristics of phosphorus testing in heparinized plasma have been validated by the individual laboratory site where testing is performed. Testing on heparinized plasma is not approved by the FDA; however, such approval is not necessary. Performed By: #### R ENAL ####[id number] [place] [address] Potassium [Moles/Vol] 4.6 mmol/L Normal 3.5 - 5.3 [facility] Comment on above: Performed By: #### R ENAL ####[id number] [place] [address] Sodium [Moles/Vol] 140 mmol/L Normal 136 - 145 [facility] Comment on above: Performed By: #### R ENAL ####[id number] [place] [address] Urea nitrogen [Mass/Vol] 88 mg/dL High 6 - 23 [facility] Comment on above: Performed By: #### R ENAL ####[id number] [place] [address] Admission Risk Screen - Adul ton 03-08-2019 [...] AvailabilityLiving Will not available now Living Will [id number] Falls Screen: Type of Assessmentadmission Moderate Risk Factorspatient care equipment (scds, ivs, chest tubes, gerber, etc) Risk for Injury Associated with Fallnone Fall Risk Conclusionmoderate falls risk with low risk for associated injury Lambert Safety InterventionsWDL *orient to call system *instruct [...] instruction; verbal instruction Cultural Considerationsnone Developmental Considerationsnone Sabianism Considerationsreligious considerations Uatsdin Learning Assessment (Other Learner): Other learner availableno [...] Spiritual Screen: Are there any cultural, spiritual, sikh practices/values/needs that are important for us to [...] Pressure Injury Present on Admissionno Electronic Signatures: Mraiposa Vincent (ROWDY) (Signed 08-Mar-2019 13:36) Authored: Admission Risk Screens, Vaccinations, Morgan, Pressure Injury Last Updated: 08-Mar-2019 13:36 by Mariposa Vincent (ROWDY) Normal [facility] C-REACTIVE PROTEINon 25-2 019 CRP [Mass/Vol] 0.66 mg/dL Normal [facility] Comment on above: Result Comment: REF VALUE < 1.00 Performed By: #### C RP #### [facility] [address] [place] [address] CBC AND DIFFERENTIALon 03-08 % AUTOMATED IMMATURE GRAN 3.7 % High 0.0 - 0.9 [facility] Comment on above: Result Comment: Perc ent differential counts (%) should be interpreted in the context of the absolute cell counts (cells/L). Performed By: #### C BCDF #### [facility] [address] [place] [address] Basophils (Bld) [#/Vol] 0.05 10*3/uL Normal 0.00 - 0.10 [facility] Comment on above: Performed By: #### C BCDF #### [facility] [address] [place] [address] Basophils/100 WBC (Bld) 0.3 % Normal 0.0 - 2.0 [facility] Comment on above: Performed By: #### C BCDF #### [facility] [address] [place] [address] Eosinophils (Bld) [#/Vol] 0.00 10*3/uL Normal 0.00 - 0.70 [facility] Comment on above: Performed By: #### C BCDF #### [facility] [address] [place] [address] Eosinophils/100 WBC (Bld) 0.0 % Normal 0.0 - 6.0 [facility] Comment on above: Performed By: #### C BCDF #### [facility] [address] [place] [address] Erythrocyte distribution width (RBC) [Ratio] 16.1 % High 11.5 - 14.5 [facility] Comment on above: Performed By: #### C BCDF #### [facility] [address] [place] [address] Hematocrit (Bld) [Volume fraction] 28.3 % Low 36.0 - 46.0 [facility] Comment on above: Performed By: #### C BCDF #### [facility] [address] [place] [address] Hemoglobin (Bld) [Mass/Vol] 9.3 g/dL Low 12.0 - 16.0 [facility] Comment on above: Performed By: #### C BCDF #### [facility] [address] [place] [address] Lymphocytes (Bld) [#/Vol] 0.49 10*3/uL Low 1.20 - 4.80 [facility] Comment on above: Performed By: #### C BCDF #### [facility] [address] [place] [address] Lymphocytes/100 WBC (Bld) 3.0 % Normal 13.0 - 44.0 [facility] Comment on above: Performed By: #### C BCDF #### [facility] [address] [place] [address] MCHC (RBC) [Mass/Vol] 32.9 g/dL Normal 32.0 - 36.0 [facility] Comment on above: Performed By: #### C BCDF #### [facility] [address] [place] [address] MCV (RBC) [Entitic vol] 93 fL Normal 80 - 100 [facility] Comment on above: Performed By: #### C BCDF #### [facility] [address] [place] [address] Monocytes (Bld) [#/Vol] 1.21 10*3/uL High 0.10 - 1.00 [facility] Comment on above: Performed By: #### C BCDF #### [facility] [address] [place] [address] Monocytes/100 WBC (Bld) 7.5 % Normal 2.0 - 10.0 [facility] Comment on above: Performed By: #### C BCDF #### [facility] [address] [place] [address] Neutrophils (Bld) [#/Vol] 13.74 10*3/uL High 1.20 - 7.70 [facility] Comment on above: Performed By: #### C BCDF #### [facility] [address] [place] [address] Neutrophils/100 WBC (Bld) 85.5 % Normal 40.0 - 80.0 [facility] Comment on above: Performed By: #### C BCDF #### [facility] [address] [place] [address] Nucleated RBC/100 WBC (Bld) [Ratio] 0.0 /100 WBC Normal 0.0-0.0 [facility] Comment on above: Performed By: #### C BCDF #### [facility] [address] [place] [address] Platelets (Bld) [#/Vol] 256 10*3/uL Normal 150 - 450 [facility] Comment on above: Performed By: #### C BCDF #### [facility] [address] [place] [address] RBC (Bld) [#/Vol] 3.05 x10E12/L Low 4.00 - 5.20 [facility] Comment on above: Performed By: #### C BCDF #### [facility] [address] [place] [address] WBC (Bld) [#/Vol] 16.1 10*3/uL High 4.4 - 11.3 [facility] Comment on above: Performed By: #### C BCDF #### [facility] [address] [place] [address] COMPREHENSIVE PANELon 2018 Albumin [Mass/Vol] 3.2 g/dL Low 3.4 - 5.0 [facility] Comment on above: Performed By: #### C MP #### [facility] [address] [place] [address] ALP [Catalytic activity/Vol] 46 U/L Normal 33 - 136 [facility] Comment on above: Performed By: #### C MP #### [facility] [address] [place] [address] ALT [Catalytic activity/Vol] 15 U/L Normal 7 - 45 [facility] Comment on above: Result Comment: Vanda ents treated with Sulfasalazine may generate falsely decreased results for ALT. Performed By: #### C MP #### [facility] [address] [place] [address] Anion gap [Moles/Vol] 16 mmol/L Normal 10 - 20 [facility] Comment on above: Performed By: #### C MP #### [facility] [address] [place] [address] AST [Catalytic activity/Vol] 11 U/L Normal 9 - 39 [facility] Comment on above: Performed By: #### C MP #### [facility] [address] [place] [address] Bilirubin [Mass/Vol] 0.7 mg/dL Normal 0.0 - 1.2 [facility] Comment on above: Performed By: #### C MP #### [facility] [address] [place] [address] Calcium [Mass/Vol] 8.9 mg/dL Normal 8.6 - 10.6 [facility] Comment on above: Performed By: #### C MP #### [facility] [address] [place] [address] Chloride [Moles/Vol] 102 mmol/L Normal 98 - 107 [facility] Comment on above: Performed By: #### C MP #### [facility] [address] [place] [address] Creatinine [Mass/Vol] 2.68 mg/dL High 0.50 - 1.05 [facility] Comment on above: Performed By: #### C MP #### [facility] [address] [place] [address] GFR- AM. 22 mL/min/1.73m2 Abnormal >60 [facility] Comment on above: Result Comment: CALC ULATIONS OF ESTIMATED GFR ARE PERFORMED USING THE MDRD STUDY EQUATION FOR THE IDMS-TRACEABLE CREATININE METHODS. CLIN CHEM 2007;53:766-72 Performed By: #### C MP #### [facility] [address] [place] [address] GFR-NON AM. 18 mL/min/1.73m2 Abnormal >60 [facility] Comment on above: Performed By: #### C MP #### [facility] [address] [place] [address] Glucose [Mass/Vol] 116 mg/dL High 74 - 99 [facility] Comment on above: Performed By: #### C MP #### [facility] [address] [place] [address] HCO3 (Bld) [Moles/Vol] 26 mmol/L Normal 21 - 32 [facility] Comment on above: Performed By: #### C MP #### [facility] [address] [place] [address] Potassium [Moles/Vol] 4.0 mmol/L Normal 3.5 - 5.3 [facility] Comment on above: Performed By: #### C MP #### [facility] [address] [place] [address] Protein [Mass/Vol] 6.4 g/dL Normal 6.4 - 8.2 [facility] Comment on above: Performed By: #### C MP #### [facility] [address] [place] [address] Sodium [Moles/Vol] 140 mmol/L Normal 136 - 145 [facility] Comment on above: Performed By: #### C MP #### [facility] [address] [place] [address] Urea nitrogen [Mass/Vol] 87 mg/dL High 6 - 23 [facility] Comment on above: Performed By: #### C MP #### [facility] [address] [place] [address] Clinical Event Note-Senior R jyotsnadent Staffing Noteon [...] proteinuria, after which she was admitted to [facility] for workup. over there workup showed +ve TAMIKA, +ve anti-SM, +ve anti-COSMETIC MAKER, +ve anti-chromatin, low C3 and C4 and [...] bactrim for PCP prophylaxis and received procrit 95489 units for her anemia. Patient continued to have worsening kidney function and was transferred here for further assessment and consideration of plasmapheresis. 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 for newly diagnosed ANCA Vasculitis with [...] within working hours otherwise [place] team pager [phone] Electronic Signatures: Sunny Chen (Resident)) (Signed 08-Mar-2019 13:39) Authored: Event Last Updated: 08-Mar-2019 13:39 by Sunny Chen (Resident)) Normal [facility] Clinical Intervention - Jone thakur 03-08-2019 Clinical [...] 08-Mar-2019 14:09 by Abby Jeffery (PH) Normal [facility] Consult-Renalon 03-08-2019 Consult-Renal Service: Service: Renal Consult: Consult requested by (Attending Name): Dr Duenas Reason: HERLINDA History of Present Illness: HPI: Bhumika Wheatley is a 68yo F with PMHx stage 1 IDC (T1N0M0) s/p lumpectomy and radiotion in 1992, hx thyroid cancer s/p thyroidectomy, kidney stones, 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 Her PCP did start her on oral steroids until equine vet appointment. She was seen in her Warehouse Associate, Dr. 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 She originally was admitted to [facility] on 03/01 for evaluation of likely [...] no illicit drug use. lives with in [place] allergies: penicillins, iodinated contrast oral and IV home meds: levothyroxine 100 mcg PO qday Allergies: contrast (specific type unknown): Anaphylaxis penicillin: Unknown Objective: Objective Information: T PRBPSpO2 [id number]/08852% Date/Time03/08 14: 14: 14: 14: 14:45 Range(36.1C [...] in situ of skin who presented to [facility] 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 She also had low C3 and C4 suggesting active phase of SLE with recent lab results indicating +TAMIKA, +anti-SM, +anti-COSMETIC MAKER, and +anti-chromatin. 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 She was admitted to [facility] for evaluation for plasmapheresis 1. ANCA vasculitis, [...] [place] PGY-1 Internal Medicine Renal Consults Pager [phone], doc halo Signature/Cosignature/Atte station: Note Completion: Attending [...] the note. I personally evaluated the patient [id number] Electronic Signatures: Osmin Ann) (Signed 10-Mar-2019 11:10) Authored: Service, Signature/Cosignature/Atte station Co-Signer: Service, History of Present Illness, Allergies, Objective, Assessment/Recommendations , Signature/Cosignature/Atte station Evelyn Oviedo (Resident)) (Signed 08-Mar-2019 16:39) Authored: Service, History of Present Illness, Allergies, Objective, Assessment/Recommendations , Signature/Cosignature/Atte station Last Updated: 10-Mar-2019 11:10 by Osmin Ann) Normal [facility] Consult-Rheumatologyon 03-08 Consult-Rheumatolo gy Service: Service: Rheumatology History of Present Illness: HPI: 68yo F with PMHx stage 1 IDC (T1N0M0) s/p lumpectomy and radiation in 1992, hx thyroid cancer s/p thyroidectomy, kidney stones, 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 Her PCP did start her on oral steroids until she was seen by nephrology, she had low C3 and C4 with elevated creatinine to 3.2 (baseline 0.7-1.0 at end of 2017), concerning for active lupus nephritis and kidney failure. Pt was admitted to [facility] on 03/01 for evaluation of likely [...] then downtrended to 2.61 on transfer from [facility]. Currently pt denies any malar rash, joint [...] no illicit drug use. lives with in [place] allergies: penicillins, iodinated contrast oral and IV home meds: levothyroxine 100 mcg PO qday Allergies: contrast (specific type unknown): Anaphylaxis penicillin: Unknown Allergies: contrast (specific type unknown): Anaphylaxis penicillin: Unknown Objective: Objective Information: T PRBPSpO2 Value36.02651165/6898% Date/Time03/08 19: 19: 19: 19: 19:33 Range(36.1C [...] Reference Range: STRAW,YELLOW Appearance, Urine HAZY Specific [place], Urine 1.008 pH, Urine 5.0 Protein, Urine [...] of PMR 2011, who was transferred from [facility] 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 Pt's symptoms started about a year ago with persistent hematuria, recurrent UTIs accompanied with intermittent flank pain, fatigue, anorexia, alopecia, and weight loss. No symptoms of active SLE other than fatigue and alopecia, no typical Hx of GPA Had +TAMIKA, +anti-SM, +anti-COSMETIC MAKER, and +anti-chromatin antibodies, low C3 and C4, [...] Fellow, PGY 5 Consult Rheumatology pager # [phone] Rheumatology Attending Pt interviewed and examined; records from [facility] reviewed including the renal biopsy report. At this point glomerular injury due to an ANCA-associated vasculitis seems more likely than SLE but some of the laboratory tests from [facility] are not in the available records. [...] the note. I personally evaluated the patient [id number] Electronic Signatures: Karime Logan (Fellow)) (Signed 08-Mar-2019 20:53) Authored: Service, History of Present Illness, Allergies, Objective, Assessment/Recommendations Corina Tijerina) (Signed 09-Mar-2019 10:58) Authored: Assessment/Recommendations , Signature/Cosignature/Atte station Co-Signer: Service, History of Present Illness, Allergies, Objective, Assessment/Recommendations Last Updated: 09-Mar-2019 10:58 by Corina Tijerina) Normal [facility] Discharge Planning Noteon Discharge Planning Note Patient Learning: Factors that Impact Ability to Learnnone(1) Other Factors: Functional Screen: In the recent/past 2-4 weeks, patient or family have noticedno issues that require a rehabilitation consult at this time(1) Discharge Planning: Discharge Plannin03/08/19 discharge planning note patient arrived to [place] [address] from [facility]. lives in [place] with . anticipating being discharged home with no needs. patient has cell phone, wallet and purse, glasses on her face and clothing. patient ambulates well. will continue to monitor. Mariposa vincent RN (03/09/19)([phone])Transitiona l Care Coordination Progress Note: Patient discussed during interdisciplinary rounds. Team members present: TCC, ABIEL-TOREY Tolliver-Lidya Plan per [place] team: Pt will need CT abd/pelvis and need to monitor pt's K levels Discharge disposition: home Potential Barriers: NMR ADOD: 03/12 Kylee Corrales RN 03/12/19 1310 Transitional Package Drier Note Attempted to meet pt but pt off the floor at this time. Will attempt to meet pt another time. Kylee Corrales RN 03/13/19 1240 Transitional Package Drier Note Met with patient and introduced myself as a Transitional Package Drier. Address, phone, and emergency contact verified. Patient lives at home with her , Corina ([phone]) who is pts primary support person. Pt ambulatory and denies use of assistive devices, denies having any recent falls, and feels safe at home. Pt denies rehab/snf in past and denies home care services. Pts PCP is Dr. Cano and the pharmacy pt uses is [email or web address] in [place]. Pt has transportation to her medical appointments. [...] Risk Screen - Adult 08-Mar-2019 13:29 Normal [facility] GLUCOSE-POCTon 03-08-2019 Glucose [Mass/Vol] 236 mg/dL High 74 - 99 [facility] Comment on above: Performed By: #### G CHRIS ####[id number] [place] [address] History and Physicalon 03-08 History and Physical History of Present Illness: HPI: Ms. Wheatley is a 68 year old female who is admitted here from [facility] for management of SLE nephritis vs [...] 2017). Further lab work-up demonstrated +TAMIKA, +anti-Sm, anti-COSMETIC MAKER, and +anti-chromatin antibodies. Labs also demonstrated low C3 (unclear value), low C4 (unclear value) , with elevated Cr (3.2) (suggestive of lupus nephritis), and was subsequently admitted for concern for nephritis (lupus) vs vasculitis. On admission to [facility], Cr was 3.57 and was started [...] the glomeruli and no significant extraglomerular staining. [place] and lambda stain were equally shown throughout the tubulointerstitium. 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 Patient was also hypertensive on admission (SBP 170s) and was reduced to 130s after starting on amlodipine 10mg/daily. Bactrim was started for PCP prophylaxis. On admission to [facility], pt report no symptoms associated with lupus [...] no illicit drug use. lives with in [place] allergies: penicillins, iodinated contrast oral and IV home meds: levothyroxine 100 mcg PO qday Allergies: contrast (specific type unknown): Anaphylaxis penicillin: Unknown Medications Prior to Admission: levothyroxine 100 mcg (0.1 mg) oral tablet: 1 tab(s) orally once a day. Objective: Objective Information: T PRBPSpO2 [id number]/62006% Date/Time03/08 14: 14: 14: 14: 14:45 Range(36.1C - 36.3C ) (81 - 86 ) (18 - 18 ) (117 - 126 )/ (67 - 71 ) (97% - 100% ) ---- Intake and Output ----- Mn/Dy/Year TimeIntakeOutputNet Mar 09, 2019 6:00 [id number] Mar 08, 2019 10:00 [id number] The Intake and Output Totals for the last 24 hours are: IntakeOutputNet [id number] Physical Exam: Constitutional: Well developed, awake/alert/oriented x3, [...] Reference Range: STRAW,YELLOW Appearance, Urine HAZY Specific [place], Urine 1.008 pH, Urine 5.0 Protein, Urine [...] SLE nephritis: low C3, C4, +TAMIKA, +anti-SM, +anti-COSMETIC MAKER, +anti-chromatin ANCA: +ANCA, +PR3 - Prophylaxis: Bactrim, PV13 Vaccine - Autoimmune labs (ANCA reflex to MPO, PR3, TAMIKA reflex LUIS) - Transfer of medical records regarding labs from [facility] - CBC - CXR (evaluation for c-ANCA [...] this note. I personally evaluated the patient [id number] Comments/ Additional Findings Ms. Wheatley is a [...] OnlyCurrent Admission Order. [place] [facility] Admitting Diagnosis, M32.14 Lupus nephritis Admitting Service, [...] Updated: 09-Mar-2019 15:48 by Kaleb Duenas) Normal [facility] PT/INRon 03-08-2019 INR Coag (PPP) [Relative time] 1.0 {INR} Normal 0.9 - 1.1 [facility] Comment on above: Performed By: #### P TINR #### [facility] [address] [place] [id number] PT Coag (PPP) [Time] 10.9 s Normal 9.7 - 12.7 [facility] Comment on above: Performed By: #### P TINR #### [facility] [address] [place] [address] Patient Profile - Adult v2on 03-08-2019 Patient Profile - Adult v2 Profile: Initial Info: How to be AddressedSusan Spoken Language PreferredEnglish Are you currently using the Personal Electronic Health Record or DeskGodno Are you interested in learning more about [facility] for the management of your healthdeclined Stated Reason for Admissionkept losing weight and nothing tasted good and pain in the kidney Primary Contact Name and NumberCorina Wheatley [phone] Other Contact Names and NumbersFelipe Wheatley(son) [phone] katrin khan (daughter) [phone] [place] Patient Belongingsremains with patient Patient Belongings Remaining with Patientclothing; purse/wallet; jewelry; vision aids Medications Brought to Hospitalno Wants Family/Rep Notified of Admissionyes, primary contact General Health: Weight in kg52.6 kilogram(s) Weight in ojk787 pound(s) Height in feet5 feet Height in inches3 inch(es) Height in cm160 centimeter(s) BMI (kg/m2)20.546 square meter Weight Methodactual (measured) Scale Typebed Height Methodstated [facility] Based Care: How would you like to [...] Withspouse Living Arrangementshouse Resource/Environmental Concernsnone [place]ticipated [place] Anticipated at Transitionnone Significant IndicatorsComplete Information [...] 08-Mar-2019 13:29 by Mariposa Vincent (ROWDY) Normal [facility] SEDIMENTATION RATE, ERYTHROC YTEon 03-08-2019 SEDIMENTATION RATE, ERYTHROCYTE 33 mm/h High 0 - 30 [facility] Comment on above: Performed By: #### E SRWS #### [facility] [address] [place] [address] SODIUM, URINE SPOTon 019 CREATININE,URINE 48.8 mg/dL Normal 20.0 - 320.0 [facility] Comment on above: Performed By: #### S ODS2 ####[id number] [place] [address] Sodium (U) [Moles/Vol] 33 mmol/L Normal Not Established [facility] Comment on above: Performed By: #### S ODS2 ####[id number] [place] [address] SODIUM/CREAT RATIO 68 mmol/g Creat Normal Not Established [facility] Comment on above: Performed By: #### S ODS2 ####[id number], [place] TH CHEST 2 VIEW PA AND LATon 03-08-2019 TH CHEST 2 VIEW PA AND LAT Patient Name: BHUMIKA WHEATLEY STUDY: TH CHEST 2 VIEW PA AND LAT; 03/08/2019 6:55 pm INDICATION: work up of c-ANCA vasculitis. COMPARISON: None. ACCESSION NUMBER(S): [id number] ORDERING CLINICIAN: SUNNY VICENTE FINDINGS: CARDIOMEDIASTINAL SILHOUETTE: [...] Electronically signed by: Caprice ESTRADA MD Normal [facility] THYROXINE,FREEon 03-08-2019 THYROXINE,FREE 1.85 ng/dL High 0.78 - 1.48 [facility] Comment on above: Result Comment: Thyr oxine Free testing is performed using different testing methodology at [facility] than at other [facility]. Direct result comparisons should only be made within the same method. . Patients receiving more than 5 mg/day of biotin may have interference in test results. A sample should be taken no sooner than eight hours after previous dose. Contact [phone] for additional information. Performed By: #### T 4FRE ####[id number] [place] [address] TSH WITH REFLEX TO FREE T4 I F ABNORMALon 03-08-2019 TSH Qn 0.15 m[IU]/L Low 0.44 - 3.98 [facility] Comment on above: Result Comment: TSH testing is performed using different testing methodology at [facility] than at other [facility]. Direct result comparisons should only be made within the same method. . Patients receiving more than 5 mg/day of biotin may have interference in test results. A sample should be taken no sooner than eight hours after previous dose. Contact [phone] for additional information. Performed By: #### T HYDS ####[id number] [place] [address] UA MICROSCOPICon 03-08-2019 BACTERIA 1+ /HPF Abnormal [facility] Comment on above: Performed By: #### U AMIC ####[id number] [place] [address] RBC 56 /HPF Abnormal 0-5 [facility] Comment on above: Performed By: #### U AMIC ####[id number] [place] [address] SQUAMOUS EPITH. CELLS 1 /HPF Normal [facility] Comment on above: Performed By: #### U AMIC ####[id number] [place] [address] WBC 10 /HPF Abnormal 0-5 [facility] Comment on above: Performed By: #### U AMIC ####[id number] [place] [address] URINALYSISon 03-08-2019 Appearance (U) HAZY Normal CLEAR [facility] Comment on above: Performed By: #### U A ####[id number] [place] [address] Bilirubin (U) [Mass/Vol] Negative Normal NEGATIVE [facility] Comment on above: Performed By: #### U A ####[id number] [place] [address] BLOOD LARGE (3+) Abnormal NEGATIVE [facility] Comment on above: Performed By: #### U A ####[id number] [place] [address] Color (U) YELLOW Normal STRAW,YELLOW [facility] Comment on above: Performed By: #### U A ####[id number] [place] [address] Glucose [Mass/Vol] >=500 (3+) Abnormal NEGATIVE [facility] Comment on above: Performed By: #### U A ####[id number] [place] [address] Ketones Ql (U) Negative Normal NEGATIVE [facility] Comment on above: Performed By: #### U A ####[id number] [place] [address] Leukocyte esterase Test strip Ql (U) Negative Normal NEGATIVE [facility] Comment on above: Performed By: #### U A ####[id number] [place] [address] Nitrite Ql (U) Negative Normal NEGATIVE [facility] Comment on above: Performed By: #### U A ####[id number] [place] [address] pH (Bld) 5.0 Normal 5.0 - 8.0 [facility] Comment on above: Performed By: #### U A ####[id number] [place] [address] Protein (U) [Mass/Vol] 100 (2+) Abnormal NEGATIVE [facility] Comment on above: Performed By: #### U A ####[id number] [place] [address] Specific gravity (U) [Rel density] 1.008 Normal 1.005 - 1.035 [facility] Comment on above: Performed By: #### U A ####[id number] [place] [address] Urobilinogen Qn (U) <2.0 Normal 0.0 - 1.9 [facility] Comment on above: Performed By: #### U A ####[id number] [place] [address] CNOVon 10-19-2018 CNOV Office Visit (RADTSA ) -- BHUMIKA WHEATLEY ([id number]) 1950 F Date Time Provider Department 10/19/18 [...] FACRO ? cc: Espinoza Melo MD [address] [facility] [address] ? Mayi Adams MD [facility] [address] [place] [address] ? This note was dictated with Dragon Naturally Speaking and may contain some grammatical errors due to limitations of the software. Kitty Dent MA, was present in the examination room throughout the encounter. Referring Provider: MAYI ADAMS [[id number]] Allergies As of Date: 10/19/2018 (No Known Allergies) Date Reviewed: 10/19/2018 Reviewed by: Kitty (Stock Replenisher) ROWDY Dent - Fully Assessed Reason for Visit: Radiotherapy On-treatment Visit [1722] Primary Visit Diagnosis:History of breast cancer [Z85.3] Order(s):[facility] DIAGNOSTIC BILAT [[id number]] Order #: [id number] FUTURE Prescriptions as of 10/19/2018 Sig: LEVOTHYROXINE [...] by MAYI ADAMS MD on 10/19/18 Normal [facility] PROGRESSon 10-19-2018 Protein mass conc HNO ID: [id number] Author: Mayi Adams Service: ? Author Type: [...] examination. ? Signed by: Mayi Adams M.D., [facility] ? cc: Espinoza Melo MD [address] [place] [phone] ? [facility] [address] [place] [address] ? This note was dictated with Alen Naturally Speaking and may contain some grammatical errors due to limitations of the software. Kitty Dent MA, was present in the examination room throughout the encounter. Normal [facility] Vital Signs Date Time Vital Sign Value Performing Clinician Facility 08-07-2023 12:07-0500 Body temperature 98.1 [degF] Stuart Urias MD Work Phone: [facility] 08-07-2023 12:07-0500 Diastolic blood pressure 56 mm[Hg] Stuart Urias MD Work Phone: [facility] 08-07-2023 12:07-0500 Heart rate 68 /min Stuart Urias MD Work Phone: [facility] 08-07-2023 12:07-0500 Respiratory rate 16 /min Stuart Urias MD Work Phone: [facility] 08-07-2023 12:07-0500 SaO2% (BldA) [Mass fraction] 94 % Stuart Urias MD Work Phone: [facility] 08-07-2023 12:07-0500 Systolic blood pressure 120 mm[Hg] Stuart Urias MD Work Phone: [facility] 08-03-2023 23:15-0500 Body height 160 cm Stuart Urias MD Work Phone: [facility] 08-03-2023 23:15-0500 Body mass index (BMI) [Ratio] 23.12 kg/m2 Stuart Urias MD Work Phone: [facility] 08-03-2023 23:15-0500 Body weight 59.2 kg Stuart Urias MD Work Phone: [facility] 05-05-2023 11:20-0400 Body height 160.02 cm Ania Arnaldo Other [facility] Other 05-05-2023 11:20-0400 Body mass index (BMI) [Ratio] 24.8 kg/m2 Ania Arnaldo Other [facility] Other 05-05-2023 11:20-0400 Body temperature 96.5 [degF] Ania Arnaldo Other [facility] Other 05-05-2023 11:20-0400 Body weight 63.5 kg Ania Arnaldo Other [facility] Other 05-05-2023 11:20-0400 Diastolic blood pressure 62 mm[Hg] Ania Arnaldo Other [facility] Other 05-05-2023 11:20-0400 Respiratory rate 18 /min Ania Arnaldo Other [facility] Other 05-05-2023 11:20-0400 SaO2% (BldA) [Mass fraction] 99 % Ania Arnaldo Other [facility] Other 05-05-2023 11:20-0400 Systolic blood pressure 101 mm[Hg] Ania Arnaldo Other [facility] Other 12-27-2022 15:40-0400 Body height 160.02 cm Ania Arnaldo Other [facility] Other 12-27-2022 15:40-0400 Body mass index (BMI) [Ratio] 26.18 kg/m2 Ania Arnaldo Other [facility] Other 12-27-2022 15:40-0400 Body temperature 97.1 [degF] Ania Arnaldo Other [facility] Other 12-27-2022 15:40-0400 Body weight 67.04 kg Ania Arnaldo Other [facility] Other 12-27-2022 15:40-0400 Diastolic blood pressure 79 mm[Hg] Ania Arnaldo Other [facility] Other 12-27-2022 15:40-0400 Respiratory rate 18 /min Ania Arnaldo Other [facility] Other 12-27-2022 15:40-0400 SaO2% (BldA) [Mass fraction] 96 % Ania Arnaldo Other [facility] Other 12-27-2022 15:40-0400 Systolic blood pressure 132 mm[Hg] Ania Arnaldo Other [facility] Other 05-19-2022 10:40-0400 Body height 160.02 cm Ania Arnaldo Other [facility] Other 05-19-2022 10:40-0400 Body mass index (BMI) [Ratio] 25.82 kg/m2 Ania Arnaldo Other [facility] Other 05-19-2022 10:40-0400 Body temperature 96.1 [degF] Ania Arnaldo Other [facility] Other 05-19-2022 10:40-0400 Body weight 66.13 kg Ania Arnaldo Other [facility] Other 05-19-2022 10:40-0400 Diastolic blood pressure 75 mm[Hg] Ania Arnaldo Other [facility] Other 05-19-2022 10:40-0400 Respiratory rate 18 /min Ania Arnaldo Other [facility] Other 05-19-2022 10:40-0400 SaO2% (BldA) [Mass fraction] 95 % Ania Arnaldo Other [facility] Other 05-19-2022 10:40-0400 Systolic blood pressure 134 mm[Hg] Ania Arnaldo Other [facility] Other 01-28-2022 11:00-0400 Body height 160.02 cm Ania Arnaldo Other [facility] Other 01-28-2022 11:00-0400 Body mass index (BMI) [Ratio] 26.82 kg/m2 Ania Arnaldo Other [facility] Other 01-28-2022 11:00-0400 Body temperature 96.7 [degF] Ania Arnaldo Other [facility] Other 01-28-2022 11:00-0400 Body weight 68.68 kg Ania Arnaldo Other [facility] Other 01-28-2022 11:00-0400 Diastolic blood pressure 85 mm[Hg] Ania Arnaldo Other [facility] Other 01-28-2022 11:00-0400 Respiratory rate 18 /min Ania Arnaldo Other [facility] Other 01-28-2022 11:00-0400 SaO2% (BldA) [Mass fraction] 98 % Ania Arnaldo Other [facility] Other 01-28-2022 11:00-0400 Systolic blood pressure 135 mm[Hg] Ania Arnaldo Other [facility] Other 09-29-2021 11:00-0500 Body height 160.02 cm Ania Arnaldo Other [facility] Other 09-29-2021 11:00-0500 Body mass index (BMI) [Ratio] 27.28 kg/m2 Ania Arnaldo Other [facility] Other 09-29-2021 11:00-0500 Body temperature 96.2 [degF] Ania Arnaldo Other [facility] Other 09-29-2021 11:00-0500 Body weight 69.85 kg Ania Arnaldo Other [facility] Other 09-29-2021 11:00-0500 Diastolic blood pressure 88 mm[Hg] Ania Arnaldo Other [facility] Other 09-29-2021 11:00-0500 Respiratory rate 18 /min Ania Arnaldo Other [facility] Other 09-29-2021 11:00-0500 SaO2% (BldA) [Mass fraction] 97 % Ania Arnaldo Other [facility] Other 09-29-2021 11:00-0500 Systolic blood pressure 141 mm[Hg] Ania Arnaldo Other [facility] Other 06-30-2021 11:00-0500 Body height 160.02 cm Ania Arnaldo Other [facility] Other 06-30-2021 11:00-0500 Body mass index (BMI) [Ratio] 26.85 kg/m2 Ania Arnaldo Other [facility] Other 06-30-2021 11:00-0500 Body temperature 96.2 [degF] Ania Arnaldo Other [facility] Other 06-30-2021 11:00-0500 Body weight 68.77 kg Ania Arnaldo Other [facility] Other 06-30-2021 11:00-0500 Diastolic blood pressure 72 mm[Hg] Ania Arnaldo Other [facility] Other 06-30-2021 11:00-0500 Respiratory rate 18 /min Ania Arnaldo Other [facility] Other 06-30-2021 11:00-0500 SaO2% (BldA) [Mass fraction] 96 % Ania Arnaldo Other [facility] Other 06-30-2021 11:00-0500 Systolic blood pressure 140 mm[Hg] Ania Arnaldo Other [facility] Other Encounters Encounter Date Encounter Type Care Provider Facility Start: 09-02-2023 ambulatory MANUEL VALENTEUC [facility] Start: 08-18-2023 End: 08-23-2023 ambulatory DORCAS MITCHELL [facility] Start: 08-17-2023 ambulatory ESPINOZA MELO [facility] Start: 08-16-2023 End: 08-23[facility]2023 [facility]: 08-13-2023 End: 08-23-2023 Emergency department patient visit TRENA Mcpherson [facility] Start: 08-13-2023 End: 08-23-2023 Evaluation and management of inpatient TRENA Mcpherson [facility] Start: 08-12-2023 End: 08-13-2023 ambulatory YESSY PACKER [facility] Start: 08-04-2023 End: 08-04-2023 Subsequent hospital visit by physician Harriet Goodman MD Work Phone: [facility] Start: 08-03-2023 End: 08-07-2023 Evaluation and management of inpatient ESPINOZA Espinal [facility] Start: 08-03-2023 End: 08-07-2023 Evaluation and management of inpatient Stuart Urias MD Work Phone: [facility] Comment on above: Syncope and collapse (Primary Dx) Start: 07-28-2023 End: 07-29-2023 ambulatory [facility] Start: 07-27-2023 End: 07-28-2023 ambulatory [facility] Start: 07-27-2023 End: 07-27-2023 Subsequent hospital visit by physician Harriet Goodman MD Work Phone: [facility] Start: 07-19-2023 End: 07-20-2023 ambulatory [facility] Start: 07-18-2023 End: 07-21-2023 ambulatory VY Espinal [facility] Start: 07-05-2023 End: 07-06-2023 ambulatory [facility] Start: 06-30-2023 End: 07-01-2023 ambulatory [facility] Start: 06-23-2023 End: 06-24-2023 ambulatory [facility] Start: 06-21-2023 End: 06-22-2023 ambulatory [facility] Start: 06-15-2023 ambulatory ESPINOZA [facility] Start: 2023 End: 06-15-2023 ambulatory VY [facility]inal [facility] Start: 06-09-2023 End: 06-10-2023 ambulatory ESPINOZA [facility] Start: 05-17-2023 End: 05-17-2023 ambulatory Ania Arnaldo Other [facility] Other Start: 05-17-2023 Telephone encounter Ania Arnaldo [facility] Start: 05-13-2023 End: 05-16-2023 ambulatory AUNDREA MIXON [facility] Start: 05-11-2023 End: 05-11-2023 ambulatory Ania Arnaldo Other [facility] Other Start: 05-11-2023 Telephone encounter Ania Arnaldo [facility] Start: 05-10-2023 End: 05-11-2023 ambulatory ESPINOZA MELO [facility] Start: 05-05-2023 End: 05-05-2023 ambulatory Ania Arnaldo Other [facility] Other Start: 05-05-2023 Office outpatient visit 25 minutes Ania Arnaldo [facility] Start: 04-27-2023 End: 04-28-2023 ambulatory ESPINOZA MELO [facility] Start: 04-27-2023 End: 04-27-2023 Subsequent hospital visit by physician Espinoza Melo MD Work Phone: [facility] Comment on above: HERLINDA (acute kidney in jury) ([facility]); Lupus nephritis ([facility]) Start: 04-21-2023 End: 04-21-2023 ambulatory Ania Arnaldo Other [facility] Other Start: 04-21-2023 Telephone encounter Ania Arnaldo [facility] Start: 04-16-2023 End: 04-20-2023 Evaluation and management of inpatient ESPINOZA MELO [facility] Start: 12-27-2022 End: 12-27-2022 ambulatory Ania Arnaldo Other [facility] Other Start: 12-27-2022 Office outpatient visit 15 minutes Ania Arnaldo [facility] Start: 12-16-2022 End: 12-17-2022 ambulatory ANIA ARNALDO Facility:[facility] Start: 09-16-2022 End: 09-17-[address] ESPINOZA MELO . Facility:[facility] Start: 08-17-2022 End: 08-18-2022 ambulatory ANIA ARNALDO Facility:[facility] Start: 05-19-2022 End: 05-19-2022 ambulatory Ania Arnaldo Other [facility] Other Start: 05-19-2022 Office outpatient visit 15 minutes Ania Arnaldo [facility] Start: 05-10-2022 End: 05-11-2022 ambulatory ANIA ARNALDO Facility:[facility] Start: 01-28-2022 End: 01-28-2022 ambulatory Ania Arnaldo Other [facility] Other Start: 01-28-2022 Office outpatient visit 15 minutes Ania Arnaldo [facility] Start: 01-18-2022 End: 01-19-[address] ESPINOZA MELO . Facility:[facility] Start: 09-29-2021 End: 09-29-2021 ambulatory Ania Arnaldo Other [facility] Other Start: 09-29-2021 Office outpatient visit 25 minutes Ania Arnaldo [facility] Start: 06-30-2021 End: 06-30-2021 ambulatory Ania Arnaldo Other [facility] Other Start: 06-30-2021 Office outpatient visit 15 minutes Ania Arnaldo [facility] Start: 10-19-2018 End: 10-24-2018 Patient encounter procedure MAYI ADAMS [facility] Procedures Date Procedure Procedure Detail Performing [...] Detail Author Start: 04-16-2028 Lipid panel Lipids [facility] [employer] Start: 08-06-2024 GFR test (Diabetes, CKD 3-4, OR last GFR 15-59) GFR test (Diabetes, CKD 3-4, OR last GFR 15-59) [facility] Start: 05-10-2024 GFR test (Diabetes, CKD 3-4, OR last GFR 15-59) GFR test (Diabetes, CKD 3-4, OR last GFR 15-59) [facility] [employer] Start: 04-20-2024 GFR test (Diabetes, CKD 3-4, OR last GFR 15-59) GFR test (Diabetes, CKD 3-4, OR last GFR 15-59) [facility] Start: 04-16-2024 Hemoglobin A1c measurement A1C test (Diabetic or Prediabetic) [facility] [employer] Start: 10-04-2023 End: 10-04-2023 Patient encounter procedure 10/04/2023 4:00 PM EST Office Visit [facility] [address] [place] [phone] Harriet Goodman MD [address] [place] [phone] follow up [facility] Comment on above: follow up Start: 08-11-2023 End: 08-11-2023 Patient encounter procedure 08/11/2023 10:00 AM EST Appointment [facility] [address] [place] [phone] Harriet Goodman MD [address] [place] [address] Krystian Mathis SLP [facility] Start: 08-10-2023 End: 08-10-2023 Patient encounter procedure 08/10/2023 2:00 PM EST Appointment [facility] [address] [place] [phone] Harriet Goodman MD [address] [place] [address] Krystian Mathis SLP [facility] Start: 07-28-2023 End: 07-28-2023 Patient encounter procedure 07/28/2023 11:00 AM EST Appointment [facility] [address] [place] [phone] Harriet Goodman MD [address] [place] [address] Krystian Mathis SLP [facility] Start: 05-06-2023 End: 05-06-2023 Patient encounter procedure 05/06/2023 1:20 PM EDT Office Visit [facility] Neurology Specialist [id number] [facility] [address] [place] [address] Bart Stock MD [address] [facility] [address] [place], [place] [id number] Liang saw patient bleed [facility] Comment on above: Liang saw patient bl eed Start: 04-16-2023 Annual Wellness Visi t (AWV) Annual Wellness Visit (AWV) [facility] Start: 03-15-2023 Influenza vaccination Flu vaccine (# 1) [facility] Start: 10-25-2020 Screening for malignant neoplasm of breast Breast cancer screen [facility] Start: 03-10-2020 Pneumococcal 65+ yea rs Vaccine (2 - PCV) Pneumococcal 65+ years Vaccine (2 - PCV) [facility] Start: 2010 Respiratory Syncytia l Virus (RSV) age 60 yrs+ (1 - 1-dose 60+ series) Respiratory Syncytial Virus (RSV) age 60 yrs+ (1 - 1-dose 60+ series) [facility] Start: 2010 Respiratory Syncytia l Virus (RSV) or age 60 yrs+ (1 - 1-dose 60+ series) Respiratory Syncytial Virus (RSV) or age 60 yrs+ (1 - 1-dose 60+ series) [facility] Start: 2005 Screening for osteoporosis DEXA (modify frequency per FRAX score) [facility] Start: 2000 Screening for malignant neoplasm of breast Breast cancer screen [facility] Start: 2000 Shingles vaccine (1 of 2) Shingles vaccine (1 of 2) [facility] Start: 1995 Screening for malignant neoplasm of colon [facility] Start: 1969 DTaP/Tdap/Td vaccine (1 - Tdap) DTaP/Tdap/Td vaccine (1 - Tdap) [facility] Start: 1968 Hepatitis C screening Hepatitis C sc reen [facility] Start: 1962 Depression Screen Depression Screen [facility] Start: 1950 COVID-19 Vaccine (#1) COVID-19 Vacci ne (#1) [facility] EKG 12 Lead EKG 12 Lead ECG STAT 08/03/2023 4:00 PM EST [facility] EKG 12 Lead EKG 12 Lead ECG Routine 08/03/2023 4:14 PM EST [facility] [employer] Work Phone: Oxygen therapy [Minimum Data Set] Initiate Oxygen Therapy Protocol Respiratory Care Routine As Needed until discontinued starting 08/03/2023 [employer] Comment on above: As Needed until disc ontinued starting 08/03/2023 End: 08-04-2023 SPECIMEN REJECTION [facility] [employer] Comment on above: Once for 1 Occurrenc es starting 08/04/2023 until 08/04/2023 End: 08-05-2023 Vascular duplex carotid bilateral [facility] [employer] Work Phone: Comment on above: One Time for 1 Occur rences starting 08/05/2023 until 08/05/2023 Payers Date Payer Category Payer Medicare [id number] 1959 Medicare [id number] 2. [id number] 1950 Unknown [id number] 2.16.84 0.1.904785.3.579.2.593 1950 Unknown [id number] 2.16.84 0.1.917921.3.579.2.593 1950 Unknown [id number] 2.16.84 0.1.420726.3.579.2.593 1950 Unknown [id number] 2.16.84 0.1.042589.3.579.2.593 1950 Unknown [id number] 2.16.84 0.1.925159.3.579.2.593 1950 Unknown [id number] 2.16.84 0.1.995497.3.579.2.593 1950 Unknown [id number] 2.16.8 40.1.962541.3.579.2.176 1950 Unknown [id number] 2.16.8 40.1.086349.3.579.2.176 1950 Unknown [id number] 2.16. 840.1.047261.3.579.2.175 1950 Unknown [id number] 2.16. 840.1.536916.3.579.2.175 1950 Unknown [id number] 2.16. 840.1.800367.3.579.2.175 1950 Unknown [id number] 2.16. 840.1.027990.3.579.2.175 1950 Unknown [id number] 2.16. 840.1.656530.3.579.2.175 1950 Unknown [id number] 2.16. 840.1.327889.3.579.2.175 1950 Unknown [id number] 2.16. 840.1.701206.3.579.2.175 1950 Unknown [id number] 2.16. 840.1.995331.3.579.2.175 1950 Unknown [id number] 2.16. 840.1.758271.3.579.2.175 1950 Unknown [id number] 2.16. 840.1.799238.3.579.2.175 1950 Unknown [id number] 2.16. 840.1.588829.3.579.2.175 1950 Unknown [id number] 2.16. 840.1.519985.3.579.2.175 1950 Unknown [id number] 2.16. 840.1.412288.3.579.2.175 1950 Unknown [id number] 2.16. 840.1.532226.3.579.2.175 1950 Unknown [id number] 2.16. 840.1.892955.3.579.2.175 1950 Unknown [id number] 2.16.84 0.1.826752.3.579.2.1286 1950 Unknown [id number] 2.16.84 0.1.717086.3.579.2.1286 1950 Unknown [id number] 2.16.84 0.1.919630.3.579.2.1286 1950 Unknown [id number] 2.16.84 0.1.179367.3.579.2.1286 1950 Unknown [id number] 2.16.84 0.1.990462.3.579.2.1286 1950 Unknown [id number] 2.16.84 0.1.930981.3.579.2.1286 1950 Unknown [id number] 2.16.84 0.1.809198.3.579.2.1286 Medicare [id number] 2.16.8 40.1.418992.19 Social History Date Type Detail Facility Unknown if ever smoked [facility] Other Start: 07-20-2023 End: 08-03-2023 Sex Assigned At [facility] Other Start: 04-18-2023 Tobacco smoking status [facility] Tobacco smoking consumption unknown [facility] Start: 1950 Sex Assigned At Not on file [facility] Start: 05-10-2023 Tobacco smoking status [facility] Ex-smoker [facility] End: 04-14-2023 History of tobacco use Current smoker [facility] End: 04-14-2023 History of tobacco use Cigarette Smoker [facility] Start: 05-10-2023 Tobacco use and exposure Smokeless tobacco non-user [facility] Start: 07-20-2023 End: 08-03-2023 Alcohol intake Lifetime non-drinker (finding) [facility] Start: 07-20-2023 End: 08-03-2023 History of Social function [facility] NEGATED: Highlighted rowStart: BONILLAF History of tobacco use Passive smoker [facility] Clinical Notes 11-03-2020 to 08-07-2023 Discharge Instr [...] Secondary Emergency Contact: FELIPE WHEATLEY Relation: Child 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 Past Surgical History: Past Surgical [...] Assisted Dressing Assisted Toileting Assisted Feeding Independent Wood Lathe Operator Independent Med Delivery whole Wound Care Documentation [...] Readmission: 14 Discharging to Facility/ Agency [facility]: [facility] Address: Phone: Fax: Dialysis Facility (if applicable) Name: Address: Dialysis Schedule: Phone: Fax: Foundation Maker/Filter Worker signature: PHYSICIAN SECTION Prognosis: Good Condition at [...] PHYSICIAN SIGNATURE: documented in this encounter [facility] 08-07-2023 History of Presen t illness [...] Ambulation Assistance: Independent Transfer Assistance: Independent Active Falsework Builder: No Patient's Falsework Builder Info: spouse 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 DVT proph: Lovenox [facility] Neurology IN-PATIENT SERVICE [facility] Progress Note Date: 08/06/2023 Patient name: Bhumika Wheatley Date of admission: 08/03/2023 3:07 PM Account: [id number] Date of : 1950 PCP: Espinoza Melo [...] extrapolated by contextual derivation. 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 [employer]: [email or web address] Additional Comments: Pt reports spouse is elderly [...] 3-5 steps with a railing?: A Little [facility] Inpatient Mobility Raw Score : 20 [facility] Inpatient T-Scale Score : 47.67 Mobility [...] Minutes Maikel Venegas PT Occupational Therapy Facility/Department: [address] [place] Occupational Therapy Initial Assessment Name: [...] Ambulation Assistance: Independent Transfer Assistance: Independent Active Falsework Builder: No Patient's Falsework Builder Info: spouse Occupation: 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 [employer] & Hobbies: [email or web address] Additional Comments: Pt reports spouse is elderly [...] How much help for eating meals?: None [facility] Inpatient Daily Activity Raw Score: 19 [facility] Inpatient ADL T-Scale Score : 40.22 [...] 23 Minutes (co-eval w/PT) Ellen Garsia OTR/L [facility] Neurology IN-PATIENT SERVICE [facility] Progress Note Date: 08/05/2023 Patient name: Bhumika Wheatley Date of admission: 08/03/2023 3:07 PM Account: [id number] Date of : 1950 PCP: Espinoza Melo [...] mg every other day Izabella Parker, PharmD, [facility] 08/05/2023 9:39 AM Pharmacy Note Renal [...] even further dose decrease) Izabella Parker PharmD, [facility] 08/04/2023 1:16 PM PHARMACY NOTE: The [...] any concerns. Thank you. Izabella Parker PharmD, [facility] 08/04/2023 12:30 PM Routine EEG completed Pharmacy Note Renal Dose Adjustment Bhumika Wheatley is a 73 y.o. female. Pharmacist assessment of renally cleared medications. Recent Labs 08/03/23 1522 BUN 26* Recent Labs 08/03/23 1522 CREATININE 1.8* Estimated Creatinine Clearance: 23 mL/min (A) (based on SCr of 1.8 mg/dL (H)). Estimated CrCl using [place] Body Weight: 23 mL/min (based on IBW [...] 08/03/2023 11:24 PM documented in this encounter [facility] 05-11-2023 Evaluation note Encounter Date Diagnosis Assessment Notes Apr, CKD (chronic kidney disease) (ICD-10 - N18.9) [facility] Other 09-21-2023 Evaluation note* Encounter Date Diagnosis [...] will check PTH vitamin D and phosphorus. [facility] Other 05-15-2023 Evaluation note* Encounter Date Diagnosis [...] the Vit D 4000 units PO daily [facility] Other 10-05-2022 Evaluation note* Encounter Date Diagnosis [...] D May, Other No need for antibiotics [facility] Other 06-16-2022 Evaluation note* Encounter Date Diagnosis [...] (ICD-10 - R82.71) No need for antibiotics [facility] Other 02-15-2022 Evaluation note* Encounter Date Diagnosis [...] (ICD-10 - R82.71) No need for antibiotics [facility] Other 11-16-2021 Evaluation note* Encounter Date Diagnosis [...] (ICD-10 - R82.71) No need for antibiotics [facility] Other [id number] Note [id number]:[address] [place] [address] 11-05-2020 [id number]:[address] [place], [place] [address]703-22-2021 NotePatient: BHUMIKA WHEATLEY Age: 70 years Sex: [...] No change in H&P upon review.[facility] DaytonComment on above:Result Comment: Electronically Signed By: Richelle BARROS, Bianca Carlson.liliam\Date and Time Signed: 11/03/20 07:[address] [facility] XYDO Other Evaluation note* Diagnosis HERLINDA (acute kidney injury) (HCC) Acute kidney failure, unspecified Lupus nephritis (HCC) Systemic lupus erythematosus documented in this encounter [facility]* Diagnosis Syncope and collapse- Primary Syncope and collapse Seizures (HCC) Other convulsions SAH (subarachnoid hemorrhage) (HCC) Subarachnoid hemorrhage [facility] - [facility]orted* Type Description Date [...] Hospitalization History Lupus issues, Renal issu es [facility] Other History general Narrative - Reported* Type [...] es Hospitalization History FALL BRAIN BLEED 3 [facility] Other Summary Purpose Family History No Family [...] at Discharge: .Home Vital Signs: T PRBPSpO2 [id number]/7099% Date/Time03/13 6: 6: 6: 6: 6:45 Range(36.2C [...] section and content) DATE CREATED AUTHOR 10/25/2018 [facility] DATE CREATED AUTHOR AUTHOR'S ORGANIZ ATION 03/20/2019 [facility] DATE CREATED AUTHOR AUTHOR'S ORGANIZ ATION 03/14/2021 Noel Richard [facility] DATE CREATED AUTHOR AUTHOR'S ORGANIZ ATION 12/23/2022 [facility] DATE CREATED AUTHOR AUTHOR'S ORGANIZ ATION 07/22/2023 [facility] DATE CREATED AUTHOR AUTHOR'S ORGANIZ ATION 08/17/2023 [facility] DATE CREATED AUTHOR AUTHOR'S ORGANIZ ATION 09/04/2023 [facility] REASON FOR VISIT (unrecogniz ed section and content) Reason Comments Fall Altered Mental Status Specialty Diagnoses / Procedures Referred By Shefali sierra Referred To Contact Diagnoses Syncope and collapse Bart Stock MD [address] [address] [facility] [address] [place] [address] Referral ID Status Reason Start Date Expiration Date Visits Re quested Visits Authorized [id number] 1 1 Care Teams (unrecognized sec tion and content) Hotel Front Desk Clerk Relationship Specialty Start Date End Date Espinoza Melo MD [address] [place] [address] (Fax) PCP - General 04/20/23 Ania Arnaldo [address] [place] [address] [place] [address] Physician Nephrology 04/18/23 Hotel Front Desk Clerk Relationship Specialty Start Date End Date Espinoza Melo MD [address] [place] [address] (Fax) PCP - General 04/20/23 Ania Arnaldo [address] [place] [address] [place] [address] Physician Nephrology 04/18/23 Hotel Front Desk Clerk Relationship Specialty Start Date End Date Espinoza Melo MD [address] [place] [address] (Fax) PCP - General 04/20/[address] [place] [address] Physician Nephrology 04/18/23 Hotel Front Desk Clerk Relationship Specialty Start Date End Date Espinoza Melo MD [address] [place] [address] PCP - General 04/20/[address] [place] [address] Physician Nephrology 04/18/23 Ordered Prescriptions (unrec ognized [...] Goddard RN) 08 (Given - Provider: Mitzy Campos RN)2100 (Due) donepezil (ARICEPT) tablet 10 mg [...] BE BASED ON THE PRIMARY CLINICAL RECORDS. [employer] [facility]. provides no warranty or guarantee of the accuracy or completeness of information in this document.
[2023-09-23 10:17] LABS: Bilirubin Urine NEGATIVE (NEGATIVE); Blood Urine TRACE-I (NEGATIVE); Clarity Urine CLEAR (CLEAR); Color Urine LT. YELLOW (YELLOW); Glucose Urine UA NEGATIVE (NEGATIVE); Ketones Urine NEGATIVE (NEGATIVE); Leukocyte Esterase Urine MODERATE (NEGATIVE); Nitrite Urine POSITIVE (NEGATIVE); Protein Urine 30 mg/dL (NEG/TRACE); Specific Gravity Urine 1.015 (1.005-1.025); Urobilinogen Urine 0.2 EU/dL (0.2-1.0); pH Urine 6.5 (5.0-9.0)
[2023-09-23 10:25] LABS: Urine Microscopic Indicated YES
[2023-09-23 10:36] LABS: Bacteria Urine LARGE #/HPF (NONE SEEN); Mucus Urine NONE SEEN (NONE SEEN); Squamous Epithelial Cell Urine FEW #/LPF (NONE/RARE); WBC Urine 20-50 #/HPF (NONE SEEN)
== END 2023-09-23 02:16 | disposition home or self-care (01) ==
LOC: LAB 02:15
PROVIDERS: PCP Family Medicine; Visit Provider Family Medicine
DX: R41.0 Disorientation, unspecified (principal); R09.89 Other specified symptoms and signs involving the circulatory and respiratory systems
CPT/HCPCS: 81001